=== PATIENT | female | born 1950 | race Caucasian/White ===

== ENCOUNTER 2016-05-03 01:10 | Inpatient (IN) | payer MEDICARE ==
[~2016-05-03] VITALS: Ht 165.1 cm; Wt 101.9 kg
[2016-05-03] VITALS (21 sets, daily range): BP systolic 142–300; BP diastolic 52–190; PULSE 97–114; RESP 14–28; TEMP 95.8–99.7; O2SAT 98–100
[~2016-05-03 01:10] MED LIST: ALBI1INJ SQ; ALLBC PO; B-12500T3 PO; CELE20TA PO; CHOL4 PO; CLON.1 PO; DUONI INH; FENO50TA PO; FURO1TAB93 PO; GABA400 PO; HEMOTAB PO; LANO0.2510 PO; LISI-363 PO; LORTA5 PO; METO100T PO; METO50TA PO; MIRTA15 PO; NOVONP2 SQ; OMEG100037 PO; ONETAB13 PO; PANT20 PO; POTA595T5 PO; SIMV20 PO; SLOWTAB PO; SPIRCAP INH; SYMB160A INH; TYLE500T PO; VITA100017 PO; VITA400C70 PO; VITATAB25 PO; WARF5TAB PO
[2016-05-03] MEDS ORDERED: SODIUM CHLOR 0.9% 1000 ML INJ 1,000 ML IV ONE (01:15)
[2016-05-03 01:26] LABS: I-STAT POTASSIUM 3.7 MMOL/L (3.5-4.9); I-STAT SODIUM 137 MMOL/L (138-146)
[2016-05-03] MEDS ORDERED: ETOMIDATE 20 MG/10 ML VIAL ONE (01:28)
[2016-05-03 01:29] LABS: AUTOMATED NEUTROPHIL # 10.7 TH/MM3 (1.8-7.7); BASOPHIL # 0.1 TH/MM3 (0-0.2); BASOPHIL % 0.6 % (0.0-2.0); EOSINOPHIL # 0.3 TH/MM3 (0-0.4); EOSINOPHIL % 1.7 % (0.0-4.0); HEMATOCRIT 44.4 % (35.0-46.0); LYMPH % 35.1 % (9.0-44.0); LYMPHOCYTE # 6.7 TH/MM3 (1.0-4.8); MEAN CORPUSCULAR HEMOGLOBIN 28.8 PG (27.0-34.0); MEAN CORPUSCULAR HGB CONC 33.9 % (32.0-36.0); MONO % 6.3 % (0.0-8.0); NEUT % 56.3 % (16.0-70.0); PLATELET COUNT 252 TH/MM3 (150-450); RED BLOOD COUNT 5.22 MIL/MM3 (4.00-5.30); RED CELL DISTRIBUTION WIDTH 14.1 % (11.6-17.2)
[2016-05-03 01:30] LABS: HEMO FLAGS AUTO DIFF
[2016-05-03] MEDS ORDERED: PROTHROMBIN COMPLEX CONC INJ 1,500 UNITS in SYRINGE/BAG 1 EA IV ONE (01:30)
[2016-05-03] MEDS ORDERED: ROCURONIUM INJ 50 MG/5 ML VIAL ONE (01:30)
--- NOTE | 2016-05-03 01:31 | PD ---
HPI Chief Complaint: Stroke Alert Time Seen by Provider: 01:12 Travel History International Travel<30 days: No Contact w/Intl Traveler<30days: No Traveled to known affect area: No History of Present Illness HPI 65 years old female was brought in by EMS for stroke alert. Patient has history of multiple strokes in the past. Patient has residual left-sided weakness from the strokes. Patient is on Coumadin. Patient was sitting down watching TV with her then patient started became more unresponsive, having aphasia, nausea vomiting, dizziness, increasing left-sided weakness. EMS was called. Patient was brought to ED stroke alert. Patient's states the patient is a full code. Patient also has history of rapid heart rate and on digoxin, anemia, depression and anxiety, diabetes type 2, emphysema , hypertension, rheumatoid arthritis. Patient's states that patient fell about 3 days ago and complaining of left-sided facial pain. Patient however did not have any change in mental status for the past few days. PFSH Past Medical History Arthritis: Yes Asthma: No Blood Disorders: Yes (clotting disorder) Anxiety: No Depression: No Heart Rhythm Problems: No Cancer: Yes (SKIN CA) Cardiovascular Problems: Yes High Cholesterol: Yes Chemotherapy: No Chest Pain: Yes (COPD) Congestive Heart Failure: No COPD: Yes Cerebrovascular Accident: Yes (2002 ) Diabetes: Yes Diminished Hearing: No Endocrine: Yes GERD: Yes Genitourinary: Yes (renal stent) Hiatal Hernia: Yes Hypertension: Yes Immune Disorder: Yes (lupus) Kidney Stones: Yes Musculoskeletal: Yes Neurologic: No (2002) Psychiatric: No Reproductive: No Respiratory: Yes Migraines: Yes (OCCASIONALLY) Radiation Therapy: No Renal Failure: No Seizures: No Sleep Apnea: No Thyroid Disease: No Ulcer: No Past Surgical History Abdominal Surgery: Yes (CHOLECYSTECTOMY, APPENDECTOMY) Cardiac Surgery: No Cholecystectomy: Yes Ear Surgery: No Endocrine Surgery: No Eye Surgery: No Genitourinary Surgery: Yes (KIDNEY STONE SX) Gynecologic Surgery: Yes (HYSTERECTOMY) Hysterectomy: Yes (1996) Oral Surgery: Yes ( ) Thoracic Surgery: No Tonsillectomy: Yes Other Surgery: Yes Social History Alcohol Use: No Tobacco Use: Yes (hx ppd) Substance Use: No Allergies-Medications (Allergen,Severity, Reaction): Coded Allergies: Rocephin (Verified Allergy, Severe, HIVES, 05/03/16) Latex (Verified Allergy, Intermediate, Rash, 05/03/16) Reported Meds & Prescriptions Reported Meds & Active Scripts Active Reported Clonidine (Clonidine HCl) 0.1 Mg Tab 0.1 Mg PO TID PRN Pantoprazole (Pantoprazole Sodium) 20 Mg Tab 20 Mg PO BID Albuterol Neb (Albuterol Sulfate) 2.5 Mg/3 Ml Neb 2.5 Mg NEB Q4HR NEB PRN Symbicort Inh (Budesonide/Formoterol Fumarate) 160-4.5 Mcg/Act Aero 2 Puff INH Q12HR Spiriva Handihaler (Tiotropium Inh) 18 Mcg Cap 18 Mcg INH DAILY 1 capsule = 18 mcg Novolin N U-100 Inj (Insulin NPH (Human) (Isophane) Inj) 100 Unit/Ml Inj 70 Units SQ HS Novolin N U-100 Inj (Insulin NPH (Human) (Isophane) Inj) 100 Unit/Ml Inj 60 Units SQ AC BREAKFAST Warfarin 5 Mg Tab 5 Mg PO DAILY E400 (Vitamin E) 400 Unit Cap Cap PO DAILY Vitamin C (Ascorbic Acid) 1,000 Mg Tab 1,000 Mg PO DAILY Tylenol Extra Strength (Acetaminophen) 500 Mg Tab 500 Mg PO Q4-6H PRN Magnesium Oxide 400 Mg Cap Cap PO Mirtazapine 15 Mg Tab 15 Mg PO HS Citalopram (Citalopram Hydrobromide) 20 Mg Tab 20 Mg PO DAILY Vitamin B-12 (Cyanocobalamin) 1,000 Mcg Tab 1,000 Mcg PO DAILY Tanzeum 4-Pack Inj (Albiglutide) 50 Mg Pfpen 50 Mg SQ Q7D Digoxin 0.25 Mg Tab 0.25 Mg PO DAILY Hydrocodone-Acetaminophen 5-325 mg Tab 1 Tab PO BID PRN Gabapentin 400 Mg Cap 400 Cap PO TID Simvastatin 20 Mg Tab 20 Mg PO DAILY Fenofibrate 145 Mg Tab 145 Mg PO DAILY Furosemide 40 Mg Tab 40 Mg PO DAILY Potassium Gluconate 595 Mg Tab PO Q4HR PRN Metoprolol Tartrate 100 Mg Tab 100 Mg PO BID Lisinopril 40 Mg Tab 40 Mg PO DAILY Review of Systems ROS Limitations: Altered Mental Status, Unresponsive Physical Exam Narrative GENERAL: Well-nourished, well-developed patient. SKIN: Warm and dry. HEAD: Normocephalic. EYES: No scleral icterus. No injection or drainage. Pupils 2 mm equal reactive. NECK: Supple, trachea midline. No JVD or lymphadenopathy. CARDIOVASCULAR: Regular rate and rhythm without murmurs, gallops, or rubs. RESPIRATORY: Breath sounds equal bilaterally. No accessory muscle use. GASTROINTESTINAL: Abdomen soft, non-tender, nondistended. MUSCULOSKELETAL: No cyanosis, or edema. BACK: Nontender without obvious deformity. No CVA tenderness. Neurologic exam: Patient's lethargic however open eyes on command, moves right extremity minimally on command. Patient is not moving left extremity at all. Patient is aphasic. Deep tendon reflexes 2+ and equal. Negative Babinski. Patient came back from CT and completely unresponsive. Data Data Last Documented VS Vital Signs Date Time Temp Pulse Resp B/P Pulse Ox O2 Delivery O2 Flow Rate FiO2 05/03/16 01:57 105 14 248/98 100 50 05/03/16 01:10 95.8 Orders Diet Npo (05/03/16 Breakfast) Activity Bed Rest (05/03/16 ) Electrocardiogram (05/03/16 ) I-Stat Creatinine (05/03/16 01:15) I-Stat Profile (05/03/16 01:15) Prothrombin Time / Inr (Pt) (05/03/16 01:15) Act Partial Throm Time (Ptt) (05/03/16 01:15) Complete Blood Count With Diff (05/03/16 01:15) Fibrinogen (05/03/16 01:15) Creatine Kinase (Cpk) (05/03/16 01:15) Troponin I (05/03/16 01:15) Ua Includes Microscopic (05/03/16 01:15) Drug Screen, Random Urine (05/03/16 01:15) Type And Screen (05/03/16 01:15) Ct Brain W/O Iv Contrast(Rout) (05/03/16 ) Chest, Single Ap (05/03/16 ) Consult Neurology (05/03/16 ) Blood Glucose (05/03/16 01:15) Ecg Monitoring (05/03/16 01:15) Neuro Checks Q2HX12,Q4H (05/03/16 01:15) Nursing Bedside Swallow Assess .ONCE (05/03/16 01:15) Iv Access Insert/Monitor (05/03/16 01:15) NPO (05/03/16 01:15) Oximetry (05/03/16 01:15) Oxygen Administration (05/03/16 01:15) Sodium Chlor 0.9% 1000 Ml Inj (Ns 1000 M (05/03/16 01:15) Resp Oxygen Ahmet C Titrat 1-4 L (05/03/16 01:15) Cath For Specimen (05/03/16 01:15) Etomidate Inj (Amidate Inj) (05/03/16 01:28) Nicardipine Inj (Cardene Inj) (05/03/16 01:30) Nicardipine Inj (Cardene Inj) (05/03/16 01:29) Prothrombin Complex Conc Inj (Kcentra In (05/03/16 01:30) Rocuronium Inj (Zemuron Inj) (05/03/16 01:30) Etomidate Inj (Amidate Inj) (05/03/16 01:45) Rocuronium Inj (Zemuron Inj) (05/03/16 01:45) Propofol 1000 Mg/100 Ml Inj (Diprivan 10 (05/03/16 01:45) Propofol 1000 Mg/100 Ml Inj (Diprivan 10 (05/03/16 01:45) ^ Infusion (05/03/16 01:31) RASS (05/03/16 01:31) Neurological Rass Scale DWIGHT.Q2H (05/03/16 01:31) Mannitol Inj (Osmitrol Inj) (05/03/16 01:45) Mannitol Inj (Mannitol Inj) (05/03/16 01:45) Mannitol Inj (Mannitol Inj) (05/03/16 01:44) Comprehensive Metabolic Panel (05/03/16 01:44) Arterial Blood Gas (Abg) (05/03/16 01:44) Urinary Catheter Insert/Apply (05/03/16 01:44) Aixa-Gastric Tube Insert/Mon (05/03/16 01:44) Restraints Non-Violent DWIGHT.Q3H (05/03/16 01:44) Admit Order (Ed Use Only) (05/03/16 02:04) Labs Laboratory Tests Test 05/03/16 01:11 White Blood Count 19.0 TH/MM3 Red Blood Count 5.22 MIL/MM3 Hemoglobin 15.0 GM/DL Bedside Hemoglobin 16.0 G/DL Hematocrit 44.4 % Bedside Hematocrit 47.0 % Mean Corpuscular Volume 85.0 FL Mean Corpuscular Hemoglobin 28.8 PG Mean Corpuscular Hemoglobin 33.9 % Concent Red Cell Distribution Width 14.1 % Platelet Count 252 TH/MM3 Mean Platelet Volume 9.9 FL Neutrophils (%) (Auto) 56.3 % Lymphocytes (%) (Auto) 35.1 % Monocytes (%) (Auto) 6.3 % Eosinophils (%) (Auto) 1.7 % Basophils (%) (Auto) 0.6 % Neutrophils # (Auto) 10.7 TH/MM3 Lymphocytes # (Auto) 6.7 TH/MM3 Monocytes # (Auto) 1.2 TH/MM3 Eosinophils # (Auto) 0.3 TH/MM3 Basophils # (Auto) 0.1 TH/MM3 CBC Comment AUTO DIFF Differential Total Cells 100 Counted Neutrophils % (Manual) 58 % Band Neutrophils % 3 % Lymphocytes % 31 % Monocytes % 6 % Eosinophils % 1 % Neutrophils # (Manual) 11.8 TH/MM3 Metamyelocytes 1 % Differential Comment FINAL DIFF MANUAL Platelet Estimate NORMAL Platelet Morphology Comment NORMAL Red Cell Morphology Comment NORMAL Prothrombin Time 32.7 SEC Prothromb Time International 2.8 RATIO Ratio Activated Partial 34.6 SEC Thromboplast Time Fibrinogen 296 mg/dL Bedside Sodium 137 MMOL/L Sodium Level 135 MEQ/L Bedside Potassium 3.7 MMOL/L Potassium Level 3.7 MEQ/L Bedside Chloride 99 MMOL/L Chloride Level 100 MEQ/L Carbon Dioxide Level 25.6 MEQ/L Anion Gap 9 MEQ/L Bedside Blood Urea Nitrogen 17 MG/DL Blood Urea Nitrogen 14 MG/DL Creatinine 0.90 MG/DL Bedside Creatinine 0.7 MG/DL Estimat Glomerular Filtration 63 ML/MIN Rate Bedside Glucose 325 MG/DL Random Glucose 324 MG/DL Calcium Level 9.2 MG/DL Total Bilirubin 0.3 MG/DL Aspartate Amino Transf 23 U/L (AST/SGOT) Alanine Aminotransferase 28 U/L (ALT/SGPT) Alkaline Phosphatase 93 U/L Total Creatine Kinase 63 U/L Troponin I LESS THAN 0.02 NG/ML Total Protein 7.6 GM/DL Albumin 4.1 GM/DL Blood Type O NEGATIVE Antibody Screen NEGATIVE MDM Medical Decision Making Medical Screen Exam Complete: Yes Emergency Medical Condition: Yes Medical Record Reviewed: Yes Interpretation(s) Last Impressions Head CT 05/03/16 0000 Signed Impressions: Service Date/Time: Tuesday, May 03, 2016 01:18 - CONCLUSION: Large acute posterior fossa hemorrhage. There is also blood in the fourth and third ventricles. Report was called to Dr. Rodrigues at 1:30 AM. Haim Anaya MD Differential Diagnosis Differential diagnosis including TIA, CVA. Narrative Course 65 years old female with sudden onset of altered mental status, unresponsive, vomiting, hypertensive, increasing weakness in the left side. History of multiple strokes in the past and on Coumadin. Patient was intubated. K Centra IV order immediately. Cardizem drip started to have systolic blood pressure less than 160. Mannitol 50 g IV given. Mannitol 25 g IV every 6 hour. I spoke with Dr[address] Chavez, neurosurgeon mill tender second operator. Agreed with the plan. 3:15 AM. I was informed by pharmacy that K Centra was not given to the patient as ordered at 1:30 AM. 3:[address] Silvestre, manager enrollment inform me that K Centra was not given to the patient at 1:30 AM. I spoke with Dr. Chavez about the situation also. Procedures Procedure Narrative After the risks and benefits were discussed the following procedure was performed: INTUBATION: The patient was put in optimal position for the procedure. Rapid sequence intubation was initiated by me using 20 milligrams of etomidate IV and 50 milligrams of rocuronium IV. The patient was intubated with a 8 cuffed endotracheal tube. Tube placement was confirmed by visualization of the tube and balloon passing through the cords, capnometry and subsequent chest x-ray. Breath sounds were equal and well aerated bilaterally postintubation. No breath sounds over stomach. Patient tolerated procedure well. Diagnosis Primary Impression: Intracranial hemorrhage Additional Impressions: Coagulopathy Respiratory failure with hypoxia Qualified Code: J96.01 - Acute respiratory failure with hypoxia David Rodrigues MD May 03, 2016 01:31
--- NOTE | 2016-05-03 01:34 | RADRPT ---
EXAM DATE/TIME: 05/03/2016 01:18 [facility] COMPARISON: No previous studies available for comparison. INDICATIONS : Stroke alert; nonverbal. RADIATION DOSE: 48.74 CTDIvol (mGy) This report was called by Dr. Anaya to Dr Rodrigues at 1: 30 AM MEDICAL HISTORY : Hypertension. Chronic obstructive pulmonary disease. Cardiovascular diseaseCVA SURGICAL HISTORY : Cholecystectomy. Appendectomy. Hysterectomy. ENCOUNTER: Initial ACUITY: 1 day PAIN SCALE: Non-responsive LOCATION: cranial TECHNIQUE: Multiple contiguous axial images were obtained of the head. Using automated exposure control and adj ustment of the mA and/or kV according to patient size, radiation dose was kept as low as reasonably a chievable to obtain optimal diagnostic quality images. FINDINGS: Acute cerebellar infarct left more so than right noted, measures about 4.5 x 6.3 cm in size. There is hemorrhage in the fourth ventricle and extending supratentorial into the third ventricle. No cerebral hemorrhage. No cerebral midline shift. There is an old white matter infarct of the r ight frontal and parietal lobes. No evidence of an acute ischemic event. No mass lesion demonstrated. CONCLUSION: Large acute posterior fossa hemorrhage. There is also blood in the fourth and third ventricles. Report was called to Dr. Rodrigues at 1:30 AM. Haim Anaya MD on May 03, 2016 at 1:30 Board Certified Radiologist. This report was verified electronically.
[2016-05-03 01:38] LABS: APTT (PATIENT) 34.6 SEC (24.3-30.1); INTERNATIONAL NORMALIZED RATIO 2.8 RATIO; PROTHROMBIN TIME - PATIENT 32.7 SEC (9.8-11.6)
[2016-05-03 01:44] LABS: CREATINE KINASE 63 U/L (26-192)
[2016-05-03] MEDS ORDERED: MANNITOL INJ 50 ML ONE ×2 (01:44→04:51)
[2016-05-03] MEDS: MANNITOL 12.5 GM/50 ML VIAL IV SCH ×4 (01:45→20:06)
[2016-05-03] MEDS ORDERED: PROPOFOL 1000 MG/100 ML INJ 100 ML IV SCH (01:45)
[2016-05-03] MEDS ORDERED: ETOMIDATE 20 MG/10 ML VIAL IV PUSH ONE (01:45)
[2016-05-03] MEDS ORDERED: MANNITOL INJ 250 ML IV ONE (01:45)
[2016-05-03] MEDS ORDERED: ROCURONIUM INJ 50 MG/5 ML VIAL IV ONE (01:45)
[2016-05-03 02:10] LABS: BANDS 3 % (0-6); EOSINOPHILS 1 % (0-4); METAMYELOCYTES 1 % (0-1); NEUTROPHIL # MANUAL DIFF 11.8 TH/MM3 (1.8-7.7); POLYS (SEG NEUTROPHILS) 58 % (16-70); WBC DIFF SAMPLE 100
[2016-05-03 02:11] LABS: PLATELET ESTIMATE SMEAR NORMAL (NORMAL); PLATELET MORPHOLOGY NORMAL (NORMAL); SCAN/DIFF FINAL DIFF MANUAL
--- NOTE | 2016-05-03 02:11 | RADRPT ---
EXAM DATE/TIME: 05/03/2016 01:53 [facility] COMPARISON: CHEST PA & LAT, December 03, 2014, 22:46. INDICATIONS : E-T tube placement, Stroke Alert. MEDICAL HISTORY : Hypertension. Chronic obstructive pulmonary disease. Stroke. SURGICAL HISTORY : Cholecystectomy. Appendectomy. Hysterectomy. ENCOUNTER: Initial ACUITY: 1 day PAIN SCORE: Non-responsive. LOCATION: Bilateral chest FINDINGS: No infiltrate, effusion or pneumothorax demonstrated. Heart size stable, upper limits of normal. Endotracheal tube tip is about 15 mm above the luis antonio. There is a nasogastric tube coiled in the stom ach. CONCLUSION: 1. Endotracheal tube tip is about 1.5 cm above the luis antonio. 2. Nasogastric tube courses into the stomach. 3. Lungs reasonably clear. Haim Anaya MD on May 03, 2016 at 2:09 Board Certified Radiologist. This report was verified electronically.
[2016-05-03] MEDS: niCARdipine INJ 25 MG in SODIUM CHLOR 0.9% 250 ML INJ 250 ML IV SCH ×4 (02:48→10:10)
[2016-05-03] MEDS ORDERED: MANNITOL 12.5 GM/50 ML VIAL IV ONE ×4 (03:00→11:15)
[2016-05-03] MEDS ORDERED: PHYTONADIONE 10 MG/D5W 50 ML IV ONE ×2 (03:30)
[2016-05-03] MEDS ORDERED: 3% SALINE INJ 500 ML IV SCH (03:30)
--- NOTE | 2016-05-03 03:48 | PD.OP ---
Operative Report Date of Surgery: May 03, 2016 Preoperative Diagnosis: Posterior fossa hemorrhage Postoperative Diagnosis: Posterior fossa hemorrhage Procedure: Right frontal [place] hole with placement of a ventriculostomy catheter Anesthesia: general Surgeon: Oumar Chavez Financial Sales Manager(s): SUREKHA Operation and Findings: INDICATIONS FOR THE PROCEDURE The patient is a 65 YEAR OLD FEmale who was brought to [facility] as we dissected a regular hemorrhage/ SHe was anticoagulated with warf. CT of the brain showed a occlusion of the third and fourth ventricle with blood. Placement of ventriculostomy was indicated as recommended by the Tra[employer] of [place] [employer] DETAILS OF THE SURGICAL PROCEDURE The right frontal area was shaved, prepped and draped in the usual sterile fashion. An entry point was selected 90 millimeters posterior to the supraorbital rim and 25 millimeters from the midline. The area was infiltrated with 1% lidocaine with epinephrine. A skin incision was made with a #15 blade down to the level of the periosteum. Using a twist drill, a arash hole was made. The dura was carefully opened with a brain needle and a ventriculostomy catheter was advanced into the ventricular system. At a depth of 60 millimeters, cerebrospinal fluid was obtained. Opening pressure was 15 centimeters of water. A specimen of cerebrospinal fluid was collected and sent to the lab for analysis of the glucose, protein, cell count and cultures. The catheter was then tunneled under the galea and externalized through a separate stab incision. The incision was closed with 3-0 nylon in a single plane. The patient tolerated the procedure well. COMPLICATIONS There were no intraoperative complications. BLOOD LOSS Blood loss was minimal. Oumar Chavez MD May 03, 2016 03:48
--- NOTE | 2016-05-03 03:48 | PD.CONS ---
HPI Service Neurosurgery Consult Requested By Dr Rodrigues Reason for Consult Cerebellar hemorrhage Primary Care Physician Fanny Leggett MD History of Present Illness This is a 65 year old female brought in by EMS as a stroke alert. She has history of multiple ischemic strokes in the past with residual left-sided weakness from the strokes. Patient has a history of Antiphospholipid syndrome and is on anticoagulated Coumadin. Apparently she was sitting down watching TV with her when she became unresponsive, with aphasia, nausea vomiting, dizziness, and increasing left-sided weakness. She is a known tyoe II diabetic and appears to be uncontrolled in ketoacidosis. EMS was called. She was brought to ED stroke alert. CT head revealed a posterior fossa ICH. Neurosurgical consultation was requested Physical Exam Vital Signs Vital Signs Date Time Temp Pulse Resp B/P Pulse Ox O2 Delivery O2 Flow Rate FiO2 05/03/16 04:11 100 70 05/03/16 03:00 Mechanical Ventilator 50 05/03/16 02:42 50 05/03/16 02:34 102 14 192/62 96 Ventilator 50 05/03/16 01:40 100 50 05/03/16 01:35 14 286/112 05/03/16 01:10 95.8 102 300/190 Physical Exam GENERAL: OBESE, well-developed patient. SKIN: Warm and dry. HEAD: Normocephalic. EYES: No scleral icterus. No injection or drainage. NECK: Supple, trachea midline. No JVD or lymphadenopathy. CARDIOVASCULAR: Regular rate and rhythm without murmurs, gallops, or rubs. RESPIRATORY: Breath sounds equal bilaterally. No accessory muscle use. GASTROINTESTINAL: Abdomen soft, non-tender, nondistended. MUSCULOSKELETAL: No cyanosis, or edema. BACK: Nontender without obvious deformity. No CVA tenderness. EXTREMITIES: Left weakness Laboratory Laboratory Tests Test 05/03/16 05/03/16 05/03/16 01:11 03:10 03:51 White Blood Count 19.0 Red Blood Count 5.22 Hemoglobin 15.0 Bedside Hemoglobin 16.0 Hematocrit 44.4 Bedside Hematocrit 47.0 Mean Corpuscular Volume 85.0 Mean Corpuscular Hemoglobin 28.8 Mean Corpuscular Hemoglobin 33.9 Concent Red Cell Distribution Width 14.1 Platelet Count 252 Mean Platelet Volume 9.9 Neutrophils (%) (Auto) 56.3 Lymphocytes (%) (Auto) 35.1 Monocytes (%) (Auto) 6.3 Eosinophils (%) (Auto) 1.7 Basophils (%) (Auto) 0.6 Neutrophils # (Auto) 10.7 Lymphocytes # (Auto) 6.7 Monocytes # (Auto) 1.2 Eosinophils # (Auto) 0.3 Basophils # (Auto) 0.1 CBC Comment AUTO DIFF Differential Total Cells 100 Counted Neutrophils % (Manual) 58 Band Neutrophils % 3 Lymphocytes % 31 Monocytes % 6 Eosinophils % 1 Neutrophils # (Manual) 11.8 Metamyelocytes 1 Differential Comment FINAL DIFF MANUAL Platelet Estimate NORMAL Platelet Morphology Comment NORMAL Red Cell Morphology Comment NORMAL Prothrombin Time 32.7 Prothromb Time International 2.8 Ratio Activated Partial 34.6 Thromboplast Time Fibrinogen 296 Bedside Sodium 137 Sodium Level 135 Bedside Potassium 3.7 Potassium Level 3.7 Bedside Chloride 99 Chloride Level 100 Carbon Dioxide Level 25.6 Anion Gap 9 Bedside Blood Urea Nitrogen 17 Blood Urea Nitrogen 14 Creatinine 0.90 Bedside Creatinine 0.7 Estimat Glomerular Filtration 63 Rate Bedside Glucose 325 Random Glucose 324 Calcium Level 9.2 Total Bilirubin 0.3 Aspartate Amino Transf 23 (AST/SGOT) Alanine Aminotransferase 28 (ALT/SGPT) Alkaline Phosphatase 93 Total Creatine Kinase 63 Troponin I LESS THAN 0.02 Total Protein 7.6 Albumin 4.1 Blood Type O NEGATIVE Antibody Screen NEGATIVE Blood Bank Comment CSF Glucose 153 CSF Total Protein 242.4 Date/Time Procedure Status Source Growth 05/03/16 03:51 Gram Stain Received Cerebral Spinal Fluid Shunt Fluid Pending 05/03/16 03:51 CSF Culture Received Cerebral Spinal Fluid Shunt Fluid Pending Result Diagram: 05/03/16 0111 05/03/16 0111 Imaging Last [address] 05/03/16 0000 Signed Impressions: Service Date/Time: Tuesday, May 03, 2016 01:18 - CONCLUSION: Large acute posterior fossa hemorrhage. There is also blood in the fourth and third ventricles. Report was called to Dr. Rodrigues at 1:30 AM. Haim Anaya MD Chest X-Ray 05/03/16 0000 Signed Impressions: Service Date/Time: Tuesday, May 03, 2016 01:53 - CONCLUSION: 1. Endotracheal tube tip is about 1.5 cm above the luis antonio. 2. Nasogastric tube courses into the stomach. 3. Lungs reasonably clear. Haim Anaya MD Review of Systems Unable to obtain Past Family Social History Allergies: Coded Allergies: Rocephin (Verified Allergy, Severe, HIVES, 05/03/16) Latex (Verified Allergy, Intermediate, Rash, 05/03/16) Past Medical History - Afibrillation - HTN - DM - Antiphospholipid syndrome. Past Surgical History - Cholecystectomy - Total hysterectomy - Kidney stone removal Reported Medications Clonidine (Clonidine HCl) 0.1 Mg Tab 0.1 Mg PO TID PRN Pantoprazole (Pantoprazole Sodium) 20 Mg Tab 20 Mg PO BID Albuterol Neb (Albuterol Sulfate) 2.5 Mg/3 Ml Neb 2.5 Mg NEB Q4HR NEB PRN Symbicort Inh (Budesonide/Formoterol Fumarate) 160-4.5 Mcg/Act Aero 2 Puff INH Q12HR Spiriva Handihaler (Tiotropium Inh) 18 Mcg Cap 18 Mcg INH DAILY 1 capsule = 18 mcg Novolin N U-100 Inj (Insulin NPH (Human) (Isophane) Inj) 100 Unit/Ml Inj 70 Units SQ HS Novolin N U-100 Inj (Insulin NPH (Human) (Isophane) Inj) 100 Unit/Ml Inj 60 Units SQ AC BREAKFAST Warfarin 5 Mg Tab 5 Mg PO DAILY E400 (Vitamin E) 400 Unit Cap Cap PO DAILY Vitamin C (Ascorbic Acid) 1,000 Mg Tab 1,000 Mg PO DAILY Tylenol Extra Strength (Acetaminophen) 500 Mg Tab 500 Mg PO Q4-6H PRN Magnesium Oxide 400 Mg Cap Cap PO Mirtazapine 15 Mg Tab 15 Mg PO HS Citalopram (Citalopram Hydrobromide) 20 Mg Tab 20 Mg PO DAILY Vitamin B-12 (Cyanocobalamin) 1,000 Mcg Tab 1,000 Mcg PO DAILY Tanzeum 4-Pack Inj (Albiglutide) 50 Mg Pfpen 50 Mg SQ Q7D Digoxin 0.25 Mg Tab 0.25 Mg PO DAILY Hydrocodone-Acetaminophen 5-325 mg Tab 1 Tab PO BID PRN Gabapentin 400 Mg Cap 400 Cap PO TID Simvastatin 20 Mg Tab 20 Mg PO DAILY Fenofibrate 145 Mg Tab 145 Mg PO DAILY Furosemide 40 Mg Tab 40 Mg PO DAILY Potassium Gluconate 595 Mg Tab PO Q4HR PRN Metoprolol Tartrate 100 Mg Tab 100 Mg PO BID Lisinopril 40 Mg Tab 40 Mg PO DAILY Active Ordered Medications Current Medications Sodium Chloride (NS 1000 ml Inj) 1,000 ml @ 70 mls/hr [id number] ONCE IV Last administered on 05/03/16 01:15; Start 05/03/16 at 01:15; Stop 05/03/16 at 04:38 ; Status DC Etomidate 20 mg 20 mg STK-MED ONCE .ROUTE Last administered on 05/03/16 01:37 ; Start 05/03/16 at 01:28; Stop 05/03/16 at 01:29; Status DC Nicardipine HCl/ Sodium Chloride (Cardene Inj/NS 250 ml Inj) 260 ml @ 0 mls/hr TITRATE IV Last administered on 05/03/16 10:10; Start 05/03/16 at 01:30 Nicardipine HCl 25 mg 25 mg STK-MED ONCE .ROUTE ; Start 05/03/16 at 01:29; Stop 05/03/16 at 01:30; Status DC Prothrombin Complex Concent (Human)/Syringe / Bag (Kcentra Inj/ Syringe/Bag) 0 ml @ 8 mls/min ONCE ONCE IV Last administered on 05/03/16 03:27; Start at 01:30; Stop 05/03/16 at 01:31; Status DC Rocuronium [place] (Zemuron Inj) 50 mg STK-MED ONCE .ROUTE ; Start 05/03/16 at 01:30; Stop 05/03/16 at 01:31; Status DC Etomidate (Amidate Inj) 20 mg ONCE ONCE IV PUSH Last administered on 01:37; Start 05/03/16 at 01:45; Stop 05/03/16 at 01:46; Status DC Rocuronium [place] 50 mg 50 mg BOLUS ONCE IV Last administered on 05/03/16 01 :37; Start 05/03/16 at 01:45; Stop 05/03/16 at 01:46; Status DC Propofol 100 ml @ 0 mls/hr TITRATE IV Last administered on 05/03/16 02:49; Start 05/03/16 at 01:45; Stop 05/03/16 at 04:36; Status DC Propofol 100 ml @ 0 mls/hr TITRATE IV Last administered on 05/03/16 09:29; Start 05/03/16 at 01:45 Mannitol (Osmitrol Inj) 250 ml @ 250 mls/hr ONCE ONCE IV ; Start 05/03/16 at 01:45; Stop 05/03/16 at 02:44; Status DC Mannitol 25 gm 25 gm Q6H IV Last administered on 05/03/16 06:53; Start at 01:45 Mannitol (Mannitol Inj) 50 ml @ As Directed STK-MED ONCE .ROUTE ; Start at 01:44; Stop 05/03/16 at 01:45; Status DC Mannitol 50 gm 50 gm ONCE ONCE IV Last administered on 05/03/16 01:50; Start 05/03/16 at 03:00; Stop 05/03/16 at 03:01; Status DC Phytonadione 10 mg/Dextrose 51 ml @ 102 mls/hr ONCE ONCE IV Last administered on 05/03/16 03:27; Start 05/03/16 at 03:30; Stop 05/03/16 at 03:59 ; Status DC Sodium Chloride (Sodium Chloride 3% Inj) 500 ml @ 10 mls/hr NOW IV Last administered on 05/03/16 03:26; Start 05/03/16 at 03:30; Stop 05/04/16 at 03:29 Mannitol 50 gm 50 gm ONCE ONCE IV Last administered on 05/03/16 04:48; Start 05/03/16 at 04:15; Stop 05/03/16 at 04:16; Status DC Sodium Chloride (NS 1000 ml Inj) 1,000 ml @ 84 mls/hr [id number] IV Last administered on 05/03/16 04:40; Start 05/03/16 at 04:22 IV Flush (NS Flush) 2 ml UNSCH PRN IV FLUSH FLUSH AFTER USING IV ACCESS; Start 05/03/16 at 04:30 IV Flush (NS Flush) 2 ml BID IV FLUSH Last administered on 05/03/16 09:01; Start 05/03/16 at 09:00 Acetaminophen (Tylenol) 650 mg Q6H PRN PO PAIN 1-5 AND/OR FEVER >101F; Start at 04:30 Morphine Sulfate (Morphine Inj) 2 mg Q2H PRN IV PAIN SCALE 6 TO 10; Start 05/03 at 04:30 Famotidine (Pepcid Inj) 20 mg Q12HR IV PUSH Last administered on 05/03/16 09: 01; Start 05/03/16 at 09:00 Midazolam HCl (Versed Inj) 2 mg Q1H PRN IV SEDATION; Start 05/03/16 at 04:30 Artificial Tears (Tears Naturale Opth Soln) 1 drop TID EACH EYE ; Start at 09:00 Ondansetron HCl (Zofran Inj) 4 mg Q6H PRN IV NAUSEA OR VOMITING; Start at 04:30 Metoclopramide HCl (Reglan Inj) 10 mg Q6H PRN IV NAUSEA OR VOMITING; Start at 04:30 Docusate Sodium (Colace Liq) 100 mg Q12H G-TUBE ; Start 05/03/16 at 09:00 Albuterol/ Ipratropium (Duoneb Neb) 1 ampule Q2HR NEB PRN INH WHEEZING; Start 05/03/16 at 04:30 Miscellaneous Information 1 [id number] Last administered on 05/03/16 04:30; Start 05/03/16 at 04:30 Chlorhexidine Gluconate (Chlorhexidine 2% Cloth) 3 pack Taper DAILY@04 TOP ; Start 05/04/16 at 04:00; Stop 04/30/17 at 03:59 Chlorhexidine Gluconate 3 pack 3 pack UNSCH PRN TOP HYGIENIC CARE; Start at 04:30 Propofol (Diprivan 1000 Mg/100ml Inj) 100 ml @ 0 mls/hr TITRATE IV Last administered on 05/03/16 05:06; Start 05/03/16 at 04:30 Dextrose (D50w (Vial) Inj) 25 ml UNSCH PRN IV PUSH HYPOGLYCEMIA-SEE COMMENTS; Start 05/03/16 at 04:45 Glucagon (Glucagon Inj) 1 mg UNSCH PRN OTHER HYPOGLYCEMIA-SEE COMMENTS; Start 05/03/16 at 04:45 Insulin Aspart (NovoLOG SUPPLEMENTAL SCALE) 1 ACHS SLIDING SCALE SQ Last administered on 05/03/16 06:22; Start 05/03/16 at 07:00; Stop 05/03/16 at 07:00 ; Status DC Metoprolol Tartrate 2.5 mg 2.5 mg Q6H IV PUSH Last administered on 05/03/16 10 :18; Start 05/03/16 at 05:00 Mannitol 50 ml @ As Directed STK-MED ONCE .ROUTE ; Start 05/03/16 at 04:51; Stop 05/03/16 at 04:52; Status DC Insulin Human Regular/Sodium Chloride (NovoLIN R (IV INFUSION)/NS Inj) 100 ml @ 0 mls/hr TITRATE IV Last administered on 05/03/16 07:10; Start 05/03/16 at 06: 45 Dextrose (D50w (Vial) Inj) 25 ml UNSCH PRN IV PUSH SEE LABEL COMMENTS; Start at 06:45 Miscellaneous Information 1 ONCE ONCE XX Last administered on 05/03/16 09:29 ; Start 05/03/16 at 06:45; Stop 05/03/16 at 06:46; Status DC Insulin Detemir (Levemir Inj) 20 units Q12HR SQ Last administered on 05/03/16 07:00; Start 05/03/16 at 07:00 Microfibriller Collagen Hemostat (Avitene Bandage) 1 bandage STK-MED ONCE .ROUTE ; Start 05/03/16 at 09:38; Stop 05/03/16 at 09:39; Status DC Lidocaine/ Epinephrine (Xylocaine-Epi 1%-1:100,000 Inj) 30 ml STK-MED ONCE .ROUTE ; Start 05/03/16 at 09:38; Stop 05/03/16 at 09:39; Status DC Thrombin (Thrombin Top Soln) 5,000 units STK-MED ONCE .ROUTE ; Start 05/03/16 at 09:38; Stop 05/03/16 at 09:39; Status DC Dexamethasone Sodium Phosphate (Decadron Inj) 4 mg STK-MED ONCE .ROUTE ; Start 05/03/16 at 09:38; Stop 05/03/16 at 09:39; Status DC Gelatin (Gelfoam 100 Top) 1 foam STK-MED ONCE .ROUTE ; Start 05/03/16 at 09:38; Stop 05/03/16 at 09:39; Status DC Cefazolin Sodium (Ancef Inj) 2,000 mg STK-MED ONCE .ROUTE ; Start 05/03/16 at 09 :38; Stop 05/03/16 at 09:39; Status DC Gentamicin Sulfate (Gentamicin Inj) 240 mg STK-MED ONCE .ROUTE ; Start 05/03/16 at 09:39; Stop 05/03/16 at 09:40; Status DC Family History Noncontributory Mom - breast cancer Dad - CT Social History Smokes 2 ppd, does not drunk or use any illicit drugs Physical Exam Vital Signs Vital Signs Date Time Temp Pulse Resp B/P Pulse Ox O2 Delivery O2 Flow Rate FiO2 05/03/16 03:00 Mechanical Ventilator 50 05/03/16 02:42 50 05/03/16 02:34 102 14 192/62 96 Ventilator 50 05/03/16 01:40 100 50 Physical Exam The patient is intubated and sedated. Yanni response to pain Cranial Nerves: Pupils 2mm equal, round, reactive to light. Eyes appear conjugated. There was no nystagmus, no papilledema. Face musculature appeared symmetrical at rest. Face sensation, olfaction, visual duran, and hearing cannot be adequately assessed due to his neurological condition. The patient has a corneal reflex. He has a gag reflex. The sternocleidomastoid and trapezius are symmetrical. Cervical Spine: neck is soft, without nuchal rigidity. Motor: No response to pain Reflexes: Deep tendon reflexes are 1+ and symmetrical in the biceps, triceps, and brachioradialis, bilaterally, in the upper extremities. In the lower extremities, the patellar and ankles are 1+, bilaterally. There is a bilateral plantar flexion response. There is no clonus Sensory: On examination there is no response to painful stimulus Cerebellar: Examination cannot be adequately assessed due to the patient's neurological condition. Laboratory Laboratory Tests Test 05/03/16 05/03/16 01:11 03:10 White Blood Count 19.0 Red Blood Count 5.22 Hemoglobin 15.0 Bedside Hemoglobin 16.0 Hematocrit 44.4 Bedside Hematocrit 47.0 Mean Corpuscular Volume 85.0 Mean Corpuscular Hemoglobin 28.8 Mean Corpuscular Hemoglobin 33.9 Concent Red Cell Distribution Width 14.1 Platelet Count 252 Mean Platelet Volume 9.9 Neutrophils (%) (Auto) 56.3 Lymphocytes (%) (Auto) 35.1 Monocytes (%) (Auto) 6.3 Eosinophils (%) (Auto) 1.7 Basophils (%) (Auto) 0.6 Neutrophils # (Auto) 10.7 Lymphocytes # (Auto) 6.7 Monocytes # (Auto) 1.2 Eosinophils # (Auto) 0.3 Basophils # (Auto) 0.1 CBC Comment AUTO DIFF Differential Total Cells 100 Counted Neutrophils % (Manual) 58 Band Neutrophils % 3 Lymphocytes % 31 Monocytes % 6 Eosinophils % 1 Neutrophils # (Manual) 11.8 Metamyelocytes 1 Differential Comment FINAL DIFF MANUAL Platelet Estimate NORMAL Platelet Morphology Comment NORMAL Red Cell Morphology Comment NORMAL Prothrombin Time 32.7 Prothromb Time International 2.8 Ratio Activated Partial 34.6 Thromboplast Time Fibrinogen 296 Bedside Sodium 137 Bedside Potassium 3.7 Bedside Chloride 99 Bedside Blood Urea Nitrogen 17 Bedside Creatinine 0.7 Bedside Glucose 325 Total Creatine Kinase 63 Troponin I LESS THAN 0.02 Blood Type O NEGATIVE Antibody Screen NEGATIVE Blood Bank Comment Result Diagram: 05/03/16 0111 Imaging Last Impressions Head CT 05/03/16 0000 Signed Impressions: Service Date/Time: Tuesday, May 03, 2016 01:18 - CONCLUSION: Large acute posterior fossa hemorrhage. There is also blood in the fourth and third ventricles. Report was called to Dr. Rodrigues at 1:30 AM. Haim Anaya MD Chest X-Ray 05/03/16 0000 Signed Impressions: Service Date/Time: Tuesday, May 03, 2016 03:27 - CONCLUSION: 1. Left IJ central venous catheter has its tip at the atriocaval junction. 2. A new tracheal tube tip is about 4 cm above the luis antonio. 3. Lungs remain reasonably clear. Haim Anaya MD Attending Statement Neuro. I have reviewed her clinical and radiological findings. Start neuro checks in a serial fashion. Ther alternatives of treatment have been discussed with her . Recommend surgical evacuation of the hematoma with posterior fossa craniectomy and duroplasty. I have discussed the details including the [id number] details of the surgical procedure, its indications, alternatives, risks, and potential complications. Risks and potential complications include, but are not limited to, infection, blood loss, CSF leak, partial or complete loss of sight in one or both eyes, paresis, paralysis, permanent pain or difficulty swallowing, loss of bowel or bladder function, complications from anesthesia, blood clot, stroke, myocardial infarction, or even . Unfortunately she is fully anticoagulated with warfarin and needs reversal of the anticoagulation ULISES. Discussed with Dr Rodrigues and with finished hardware erector There is oclussion of the ventricular system and I recommend a ventriculostomy catheter Respiratory. Full mechanical ventilation in a [place] controlled more mechanical ventilation,. pulmonary toilette, nasotracheal suction, and breathing treatments with nebulizers. History of prior CVA, embolic MCA, antiphospholipid syndrome . HOLD ANTICOAGULATION FOR NOW Hypertension As needed Cardene to maintain systolic blood pressure less than 150. Chronic anticoagulation. Reverse ULISES Follow-up coags PT and OT Nutrition. NPO Renal. monitor closely urine output, BUN and creatinine Endocrine. She has uncontrolled diabetes with DKA. Start insulin drip. Monitor serial Acu checks and SSI for tight control ID monitor for signs of infection Protonix for stress ulcer prophylaxis Matt hose and SCD's for DVT prophylaxis Her understands that she is at increased surgical risk. She is at high surgical risk Oumar Chavez MD May 03, 2016 03:48 Endocrine. Monitor serial Acu checks and SSI as needed in detail ID monitor for signs of infection Protonix for stress ulcer prophylaxis Matt hose and SCD's for DVT prophylaxis Her understands that she is at increased surgical risk. Oumar Chavez MD May 03, 2016 03:48
[2016-05-03] MEDS ORDERED: NOVOINJ6 SQ ×2 (03:58)
[2016-05-03] MEDS ORDERED: LISI40TA PO (03:58)
[2016-05-03] MEDS ORDERED: GABA400C5 PO (03:58)
[2016-05-03] MEDS ORDERED: PANT20TA2 PO (03:58)
[2016-05-03] MEDS ORDERED: FENO145T2 PO (03:58)
[2016-05-03] MEDS ORDERED: CLON0.1T PO (03:58)
[2016-05-03] MEDS ORDERED: [UNRECOGNIZED DRUG - CODE] PO (03:58)
[2016-05-03] MEDS ORDERED: VITA10007 PO (03:58)
[2016-05-03] MEDS ORDERED: SYMB160A INH (03:58)
[2016-05-03] MEDS ORDERED: DIGO0.25 PO (03:58)
[2016-05-03] MEDS ORDERED: FURO40TA PO (03:58)
[2016-05-03] MEDS ORDERED: VITA10002 PO (03:58)
[2016-05-03] MEDS ORDERED: SIMV20TA PO (03:58)
[2016-05-03] MEDS ORDERED: METO100T PO (03:58)
[2016-05-03] MEDS ORDERED: MIRTA15 PO (03:58)
[2016-05-03] MEDS ORDERED: HYDR-3516 PO (03:58)
[2016-05-03] MEDS ORDERED: ALBU0.08 NEB (03:58)
[2016-05-03] MEDS ORDERED: ACET-703 PO (03:58)
[2016-05-03] MEDS ORDERED: CITA20TA4 PO (03:58)
[2016-05-03] MEDS ORDERED: MAGN400C2 PO (03:58)
[2016-05-03] MEDS ORDERED: WARF-23 PO (03:58)
[2016-05-03] MEDS ORDERED: POTA595T PO (03:58)
[2016-05-03] MEDS ORDERED: ALBI1INJ2 SQ (03:58)
[2016-05-03] MEDS ORDERED: SPIRCAP INH (03:58)
[2016-05-03 04:17] LABS: ALT (GPT) 28 U/L (10-53); ANION GAP 9 MEQ/L (5-15); AST (GOT) 23 U/L (15-37); BICARBONATE 25.6 MEQ/L (21.0-32.0); BLOOD UREA NITROGEN 14 MG/DL (7-18); CHLORIDE 100 MEQ/L (98-107); GLOMERULAR FILTRATION RATE 63 ML/MIN (>89); POTASSIUM 3.7 MEQ/L (3.5-5.1); SODIUM (NA) 135 MEQ/L (136-145)
[2016-05-03 04:19] LABS: ALKALINE PHOSPHATASE 93 U/L (45-117); TOTAL BILIRUBIN ADULT 0.3 MG/DL (0.2-1.0)
[2016-05-03] MEDS ORDERED: MORPHINE SULFATE 4 MG/ML INJ IV PRN (04:30)
[2016-05-03] MEDS ORDERED: MIDAZOLAM HCL 2 MG/2 ML VIAL IV PRN (04:30)
[2016-05-03] MEDS ORDERED: MISCELLANEOUS NURSING INFORMATION XX SCH (04:30)
[2016-05-03] MEDS ORDERED: ACETAMINOPHEN 325 MG TAB PO PRN (04:30)
[2016-05-03] MEDS ORDERED: SODIUM CHLORIDE 0.9% FLUSH 5 ML FLUSH IV FLUSH PRN (04:30)
[2016-05-03] MEDS ORDERED: CHLORHEXIDINE GLUCONATE 2 % 1 PACK (2 CLOTHS) TOP PRN (04:30)
[2016-05-03] MEDS ORDERED: ONDANSETRON HCL 4 MG/2 ML VIAL IV PRN ×2 (04:30→12:30)
[2016-05-03] MEDS ORDERED: METOCLOPRAMIDE HCL 10 MG/2 ML VIAL IV PRN (04:30)
[2016-05-03 04:32] LABS: GROSS BLOOD TUBE #1 4+ (0); SUPERNATE COLOR TUBE #1 HEMOLYZED (CLEAR); VOLUME TUBE # 1 2.5 ML; WBC TUBE #1 395 /MM3 (0-10)
[2016-05-03] MEDS: SODIUM CHLOR 0.9% 1000 ML INJ 1,000 ML IV SCH ×2 (04:40→16:10)
--- NOTE | 2016-05-03 04:43 | HHI.HP ---
HPI Service Critical Care Medicine Primary Care Physician Fanny Leggett MD Admission Diagnosis intracranial hemorrhage. Coagulopathy. Diagnosis: Travel History International Travel<30 Days: No Contact w/Intl Traveler <30 Da: No Traveled to Known Affected Are: No History of Present Illness 65 years old female was brought in by EMS for stroke alert. Patient has history of multiple strokes in the past. Patient has residual left-sided weakness from the strokes. Patient has an Antiphospholipid syndrome and is on Coumadin. Patient was sitting down watching TV with her then patient started became more unresponsive, having aphasia, nausea vomiting, dizziness, increasing left-sided weakness. EMS was called. Patient was brought to ED stroke alert. CT head revealed large posterior fossa ICH. Review of Systems ROS Unable to obtain, patient is sedated and intubated Past Family Social History Allergies: Coded Allergies: Rocephin (Verified Allergy, Severe, HIVES, 05/03/16) Latex (Verified Allergy, Intermediate, Rash, 05/03/16) Past Medical History - Afib - HTN - DM - Antiphospholipid syndrome. Past Surgical History - Cholecystectomy - Total hysterectomy - Kidney stone removal Reported Medications Clonidine (Clonidine HCl) 0.1 Mg Tab 0.1 Mg PO TID PRN Pantoprazole (Pantoprazole Sodium) 20 Mg Tab 20 Mg PO BID Albuterol Neb (Albuterol Sulfate) 2.5 Mg/3 Ml Neb 2.5 Mg NEB Q4HR NEB PRN Symbicort Inh (Budesonide/Formoterol Fumarate) 160-4.5 Mcg/Act Aero 2 Puff INH Q12HR Spiriva Handihaler (Tiotropium Inh) 18 Mcg Cap 18 Mcg INH DAILY 1 capsule = 18 mcg Novolin N U-100 Inj (Insulin NPH (Human) (Isophane) Inj) 100 Unit/Ml Inj 70 Units SQ HS Novolin N U-100 Inj (Insulin NPH (Human) (Isophane) Inj) 100 Unit/Ml Inj 60 Units SQ AC BREAKFAST Warfarin 5 Mg Tab 5 Mg PO DAILY E400 (Vitamin E) 400 Unit Cap Cap PO DAILY Vitamin C (Ascorbic Acid) 1,000 Mg Tab 1,000 Mg PO DAILY Tylenol Extra Strength (Acetaminophen) 500 Mg Tab 500 Mg PO Q4-6H PRN Magnesium Oxide 400 Mg Cap Cap PO Mirtazapine 15 Mg Tab 15 Mg PO HS Citalopram (Citalopram Hydrobromide) 20 Mg Tab 20 Mg PO DAILY Vitamin B-12 (Cyanocobalamin) 1,000 Mcg Tab 1,000 Mcg PO DAILY Tanzeum 4-Pack Inj (Albiglutide) 50 Mg Pfpen 50 Mg SQ Q7D Digoxin 0.25 Mg Tab 0.25 Mg PO DAILY Hydrocodone-Acetaminophen 5-325 mg Tab 1 Tab PO BID PRN Gabapentin 400 Mg Cap 400 Cap PO TID Simvastatin 20 Mg Tab 20 Mg PO DAILY Fenofibrate 145 Mg Tab 145 Mg PO DAILY Furosemide 40 Mg Tab 40 Mg PO DAILY Potassium Gluconate 595 Mg Tab PO Q4HR PRN Metoprolol Tartrate 100 Mg Tab 100 Mg PO BID Lisinopril 40 Mg Tab 40 Mg PO DAILY Active Ordered Medications Current Medications Medications (Trade) Dose Ordered Sig/Michelle Route PRN Reason Start Time Stop Time Status Last Admin Dose Admin Sodium Chloride 1,000 ml @ 70 mls/hr [id number] ONCE IV 05/03/16 01:15 05/03/16 15:32 05/03/16 01:15 Nicardipine HCl 25 mg/Sodium Chloride 260 ml @ 0 mls/hr TITRATE IV 05/03/16 01:30 05/03/16 02:48 Propofol 100 ml @ 0 mls/hr TITRATE IV 05/03/16 01:45 05/03/16 02:49 Propofol (Diprivan 1000 Mg/100ml Inj) 100 ml @ 0 mls/hr TITRATE IV 05/03/16 01:45 Mannitol 25 gm 25 gm Q6H IV 05/03/16 01:45 Sodium Chloride (Sodium Chloride 3% Inj) 500 ml @ 10 mls/hr NOW IV 05/03/16 03:30 05/04/16 03:29 05/03/16 03:26 IV Flush (NS Flush) 2 ml UNSCH PRN IV FLUSH FLUSH AFTER USING IV ACCESS 05/03/16 04:30 UNV IV Flush (NS Flush) 2 ml BID IV FLUSH 05/03/16 09:00 UNV Miscellaneous Information 1 [id number] XX 05/03/16 04:30 UNV Chlorhexidine Gluconate (Chlorhexidine 2% Cloth) 3 pack Taper DAILY@04 TOP 05/04/16 04:00 04/30/17 03:59 UNV Chlorhexidine Gluconate (Chlorhexidine 2% Cloth) 3 pack UNSCH PRN TOP HYGIENIC CARE 05/03/16 04:30 UNV Family History Noncontributory Mom - breast cancer Dad - [place] Social History Smokes 2 ppd, does not drunk or use any illicit drugs Physical Exam Vital Signs Vital Signs Date Time Temp Pulse Resp B/P Pulse Ox O2 Delivery O2 Flow Rate FiO2 05/03/16 04:11 100 70 05/03/16 03:00 Mechanical Ventilator 50 05/03/16 02:42 50 05/03/16 02:34 102 14 192/62 96 Ventilator 50 05/03/16 01:40 100 50 05/03/16 01:35 14 286/112 05/03/16 01:10 95.8 102 300/190 Physical Exam GENERAL: OBESE, well-developed patient. SKIN: Warm and dry. HEAD: Normocephalic. EYES: No scleral icterus. No injection or drainage. NECK: Supple, trachea midline. No JVD or lymphadenopathy. CARDIOVASCULAR: Regular rate and rhythm without murmurs, gallops, or rubs. RESPIRATORY: Breath sounds equal bilaterally. No accessory muscle use. GASTROINTESTINAL: Abdomen soft, non-tender, nondistended. MUSCULOSKELETAL: No cyanosis, or edema. BACK: Nontender without obvious deformity. No CVA tenderness. EXTREMITIES: Left weakness Laboratory Laboratory Tests Test 05/03/16 05/03/16 05/03/16 01:11 03:10 03:51 White Blood Count 19.0 Red Blood Count 5.22 Hemoglobin 15.0 Bedside Hemoglobin 16.0 Hematocrit 44.4 Bedside Hematocrit 47.0 Mean Corpuscular Volume 85.0 Mean Corpuscular Hemoglobin 28.8 Mean Corpuscular Hemoglobin 33.9 Concent Red Cell Distribution Width 14.1 Platelet Count 252 Mean Platelet Volume 9.9 Neutrophils (%) (Auto) 56.3 Lymphocytes (%) (Auto) 35.1 Monocytes (%) (Auto) 6.3 Eosinophils (%) (Auto) 1.7 Basophils (%) (Auto) 0.6 Neutrophils # (Auto) 10.7 Lymphocytes # (Auto) 6.7 Monocytes # (Auto) 1.2 Eosinophils # (Auto) 0.3 Basophils # (Auto) 0.1 CBC Comment AUTO DIFF Differential Total Cells 100 Counted Neutrophils % (Manual) 58 Band Neutrophils % 3 Lymphocytes % 31 Monocytes % 6 Eosinophils % 1 Neutrophils # (Manual) 11.8 Metamyelocytes 1 Differential Comment FINAL DIFF MANUAL Platelet Estimate NORMAL Platelet Morphology Comment NORMAL Red Cell Morphology Comment NORMAL Prothrombin Time 32.7 Prothromb Time International 2.8 Ratio Activated Partial 34.6 Thromboplast Time Fibrinogen 296 Bedside Sodium 137 Sodium Level 135 Bedside Potassium 3.7 Potassium Level 3.7 Bedside Chloride 99 Chloride Level 100 Carbon Dioxide Level 25.6 Anion Gap 9 Bedside Blood Urea Nitrogen 17 Blood Urea Nitrogen 14 Creatinine 0.90 Bedside Creatinine 0.7 Estimat Glomerular Filtration 63 Rate Bedside Glucose 325 Random Glucose 324 Calcium Level 9.2 Total Bilirubin 0.3 Aspartate Amino Transf 23 (AST/SGOT) Alanine Aminotransferase 28 (ALT/SGPT) Alkaline Phosphatase 93 Total Creatine Kinase 63 Troponin I LESS THAN 0.02 Total Protein 7.6 Albumin 4.1 Blood Type O NEGATIVE Antibody Screen NEGATIVE Blood Bank Comment CSF Glucose 153 CSF Total Protein 242.4 Date/Time Procedure Status Source Growth 05/03/16 03:51 Gram Stain Received Cerebral Spinal Fluid Shunt Fluid Pending 05/03/16 03:51 CSF Culture Received Cerebral Spinal Fluid Shunt Fluid Pending Result Diagram: 05/03/16 0111 05/03/16 0111 Imaging Last [address] 05/03/16 0000 Signed Impressions: Service Date/Time: Tuesday, May 03, 2016 01:18 - CONCLUSION: Large acute posterior fossa hemorrhage. There is also blood in the fourth and third ventricles. Report was called to Dr. Rodrigues at 1:30 AM. Haim Anaya MD Chest X-Ray 05/03/16 0000 Signed Impressions: Service Date/Time: Tuesday, May 03, 2016 01:53 - CONCLUSION: 1. Endotracheal tube tip is about 1.5 cm above the luis antonio. 2. Nasogastric tube courses into the stomach. 3. Lungs reasonably clear. Haim Anaya MD Assessment and Plan Problem List: (1) Hypertension ICD Code: I10 Status: Acute (2) Atrial fibrillation ICD Code: I48.91 Status: Acute (3) Coagulopathy ICD Code: D68.9 Status: Acute (4) Intracranial hemorrhage ICD Code: I62.9 Status: Acute (5) Diabetes ICD Code: E11.9 Status: Acute (6) Respiratory failure with hypoxia ICD Code: J96.91 Status: Acute Assessment and Plan Respiratory failure - intubated for an airway protection - mechanical ventilation - end tidal Co2 - no weaning until neurologically improved Intracranial hemorrhagic stroke - posterior fosa - needs posterior decompressive hemicraniectomy - plan for OR a.m. - Mannitol 1g/kg given initial dose - 3% NS - goal Na 160 - EVD - monitor ICP Coagulopathy - revers Coumadin with Vit K, FFP and Kcentra - repeat INR Hypertension - Cardene gtt - SBP goal < 150 DM - ISS A.Fib - rate controlled - Lopressor i.v. DVT/GI prophylaxis - TEDs/SCDs/Pepcid Critical Care: The total critical care time was 45 minutes. Time to perform other separately billable procedures was not included in the critical care time. Eugene Silvestre MD May 03, 2016 04:43
[2016-05-03] MEDS ORDERED: DEXTROSE 50% IN WATER 50 ML VIAL(D50) IV PUSH PRN ×2 (04:45→06:45)
[2016-05-03] MEDS ORDERED: GLUCAGON 1 MG/ML VIAL OTHER PRN (04:45)
--- NOTE | 2016-05-03 04:45 | PD.PROCEDR ---
Procedure Note Procedure Central Venous Catheter (CVC, Central Line) Placement Date: 05/03 Time: 400 Indication: Hemodynamic monitoring/Intravenous access A time-out was completed verifying correct patient, procedure, site, positioning , and special equipment if applicable. The patient was placed in a dependent position appropriate for central line placement based on the vein to be cannulated. The patients /left> < neck/ was prepped and draped in sterile fashion. 1% Lidocaine was used to anesthetize the surrounding skin area. A triple lumen <9-Cook Islander> Cordis catheter was introduced into the the </internal jugular vein> using the Seldinger technique <and under ultrasound guidance>. The catheter was threaded smoothly over the guide wire and appropriate blood return was obtained. Each lumen of the catheter was evacuated of air and flushed with sterile saline. The catheter was then sutured in place to the skin and a sterile dressing applied. Perfusion to the extremity distal to the point of catheter insertion was checked and found to be adequate. <Attending/Resident > was present for the entire procedure. Estimated Blood Loss: 5ml The patient tolerated the procedure well and there were no complications. Eugene Silvestre MD May 03, 2016 04:45
--- NOTE | 2016-05-03 04:46 | PD.PROCEDR ---
Procedure Note Procedure ARTERIAL LINE (A-Line) PLACEMENT Date: 05/03 Time: 455 Indication: Hemodynamic monitoring A time-out was completed verifying correct patient, procedure, site, positioning , and special equipment if applicable. Allens test was performed to ensure adequate perfusion. The patients <right wrist was prepped and draped in sterile fashion. 1% Lidocaine was used to anesthetize the area. A /20G> Arrow arterial line was introduced into the <radial/femoral> artery. The catheter was threaded over the guide wire and the needle was removed with appropriate pulsatile blood return. The catheter was then sutured in place to the skin and a sterile dressing applied. Perfusion to the extremity distal to the point of catheter insertion was checked and found to be adequate. <Attending/Resident> was present for the entire procedure. Estimated Blood Loss: 5ml The patient tolerated the procedure well and there were no complications. Eugene Silvestre MD May 03, 2016 04:46
--- NOTE | 2016-05-03 04:48 | RADRPT ---
EXAM DATE/TIME: 05/03/2016 03:27 [facility] COMPARISON: CHEST SINGLE AP, May 03, 2016, 1:53. INDICATIONS : Evaluate and confirm Central Line placement. MEDICAL HISTORY : Hypertension. Chronic obstructive pulmonary disease. Stroke. SURGICAL HISTORY : Appendectomy. Cholecystectomy. Hysterectomy. ENCOUNTER: Initial ACUITY: 1 day PAIN SCORE: Non-responsive. LOCATION: Bilateral chest FINDINGS: Lungs remain reasonably clear. No pleural effusion. No pneumothorax. Endotracheal tube tip is now approximately 4 cm above the luis antonio. Nasogastric tube again seen in the coiled in the stomach. There is a new left IJ central venous catheter with tip at the right atriocava l junction. CONCLUSION: 1. Left IJ central venous catheter has its tip at the atriocaval junction. 2. A new tracheal tube tip is about 4 cm above the luis antonio. 3. Lungs remain reasonably clear. Haim Anaya MD on May 03, 2016 at 4:44 Board Certified Radiologist. This report was verified electronically.
[2016-05-03] MEDS: METOPROLOL TARTRATE 5 MG/5 ML VIAL IV PUSH SCH ×4 (04:49→22:42)
[2016-05-03 04:52] LABS: CSF EOSINOPHILS 2 %; CSF LYMPHOCYTES 8 %; CSF NEUTROPHILS 90 %
[2016-05-03 04:56] LABS: BLOOD GAS CARBOXYHEMOGLOBIN 3.2 % (0-4); BLOOD GAS HCO3 25 mmol/L (22-26); BLOOD GAS METHEMOGLOBIN 1.4 % (0-2); BLOOD GAS O2 HGB SATURATION 94 % (90-100); BLOOD GAS OXYGEN CONTENT 16.2 Vol % (12.0-20.0); BLOOD GAS PCO2 49 mmHg (38-42); BLOOD GAS PO2 145 mmHg (61-120); TEMP CORR TO 98.6
[2016-05-03 04:57] LABS: CRITICAL VALUE NO; DRAW SITE ALINE; FIO2 50 %; OXYGEN DEVICE VENTILATOR; STAT NO; ULNAR PULSE PRESENT; VENT SETTINGS AC/20/550/PEEP5
[2016-05-03] MEDS: PROPOFOL 1000 MG/100 ML INJ 100 ML IV SCH ×5 (05:06→22:42)
[2016-05-03 05:59] LABS: BLOOD GAS BASE EXCESS -1.1 mmol/L (-2-2); BLOOD GAS CARBOXYHEMOGLOBIN 2.6 % (0-4); BLOOD GAS HCO3 24 mmol/L (22-26); BLOOD GAS METHEMOGLOBIN 1.3 % (0-2); BLOOD GAS O2 HGB SATURATION 95 % (90-100); BLOOD GAS OXYGEN CONTENT 16.9 Vol % (12.0-20.0); BLOOD GAS PCO2 46 mmHg (38-42); BLOOD GAS PO2 179 mmHg (61-120); BLOOD GAS TOTAL HGB 12.3 G/DL (12.0-16.0); CRITICAL VALUE NO; DRAW SITE ALINE; FIO2 50 %; OXYGEN DEVICE VENTILATOR; STAT NO; TEMP CORR TO 98.6; VENT SETTINGS AC/20/600/PEEP5
[2016-05-03 06:04] LABS: INTERNATIONAL NORMALIZED RATIO 1.3 RATIO; PROTHROMBIN TIME - PATIENT 14.4 SEC (9.8-11.6)
[2016-05-03] MEDS ORDERED: MISC INFORMATION XX ONE (06:45)
[2016-05-03] MEDS ORDERED: INSULIN ASPART SUPPLEMENTAL SCALE SQ SCH (07:00)
[2016-05-03] MEDS: INSULIN DETEMIR 100 UNITS/ML VIAL SQ SCH ×3 (07:00→20:06)
[2016-05-03] MEDS: INSULIN REGULAR (IV INFUSION) 100 UNITS in SODIUM CHLORIDE 0.9% INJ 99 ML IV SCH (07:10)
--- NOTE | 2016-05-03 08:28 | EKG ---
Date Performed: 05/03/2016 Time Performed: 02:06:37 PTAGE: 65 years EKG: SINUS TACHYCARDIA POSSIBLE ANTERIOR MYOCARDIAL INFARCTION POSSIBLE INFERIOR MYOCARDIAL INFA RCTION ABNORMAL RHYTHM ECG PREVIOUS TRACING : 03/14/2015 05.40 Compared to previous tracing, possible inferior and anterio r infarction patterns are now more evident. DOCTOR: Gonzalo Stahl Interpretating Date/Time 05/03/2016 08:28:31
[2016-05-03] MEDS: ARTIFICIAL TEARS OPTH SOLN 15 ML BTL EACH EYE SCH ×3 (08:55→18:05)
[2016-05-03] MEDS: DOCUSATE SODIUM 100 MG/10 ML UDC G-TUBE SCH ×2 (08:56→20:06)
[2016-05-03] MEDS ORDERED: FAMOTIDINE 20 MG/2 ML VIAL IV PUSH SCH (09:00)
[2016-05-03] MEDS: SODIUM CHLORIDE 0.9% FLUSH 5 ML FLUSH IV FLUSH SCH ×2 (09:01→20:06)
[2016-05-03] MEDS ORDERED: THROMBIN (TOPICAL) 5,000 UNIT VIAL ONE ×2 (09:38→12:35)
[2016-05-03] MEDS ORDERED: MICROFIBRILLAR COLLAGEN HEMOSTAT 70 X 35 MM BANDAGE ONE (09:38)
[2016-05-03] MEDS ORDERED: DEXAMETHASONE SOD PHOS 4 MG/ML VIAL ONE (09:38)
[2016-05-03] MEDS ORDERED: LIDOCAINE 1%/EPINEPHrine 1:100,000 SOLN 30 ML VIAL ONE (09:38)
[2016-05-03] MEDS ORDERED: ceFAZolin INJ 1,000 MG VIAL ONE (09:38)
[2016-05-03] MEDS ORDERED: GELFOAM SIZE 100 ONE ×2 (09:38→12:36)
[2016-05-03] MEDS ORDERED: GENTAMICIN SULFATE 80 MG/2 ML VIAL ONE (09:39)
[2016-05-03] MEDS ORDERED: LABETALOL HCL 100 MG/20 ML VIAL IVS PRN (11:00)
[2016-05-03] MEDS ORDERED: VANCOMYCIN HCL 1000 MG VIAL ONE (11:35)
--- NOTE | 2016-05-03 11:52 | MB ---
cc: PETE HARDIN M.D. DATE OF CONSULTATION: 05/03/2016 REASON FOR CONSULTATION A 65-year-old seen in neurological consultation with a history of Stroke Alert. HISTORY OF PRESENT ILLNESS I was called about 1:00 a.m. this morning by the ED physician and the case was discussed. She was immediately sent to CT scan which subsequently was reviewed. The study showed a cerebellar bleed, right more than left, causing mass effect. Subsequently the neurosurgeons were consulted. She now has a ventriculostomy and she is going to the OR with Dr. Chavez. The patient had been on Coumadin and Plavix and developed left-sided weakness. By the time she was in the emergency room she was barely responsive and had apparent minimal speech. She has a history of multiple strokes in 2002. It appears that she has been on Coumadin and also on Plavix, perhaps since 2002, although the was not sure about the dates. PAST MEDICAL HISTORY 1. Diabetes. 2. COPD. 3. Depression. 4. Hypertension. 5. Hyperlipidemia. MEDICATIONS The medication list was reviewed. NEUROLOGICAL EXAMINATION The patient is now on a ventilator. She was intubated in the emergency room. She has minimally reactive pupils, but they are about the same size. The right eye is mildly deviated outwards. The patient is sedated and has a ventriculostomy. Reflexes show bilateral extensor plantar responses and minimal reflexes at the elbows and knees. IMAGING CT brain as discussed above. LABORATORY WBC 19.0, hemoglobin 15.0, platelets 252. Sodium 137, repeat 129. Glucose initially was 325. INR was 2.8 this morning and repeat is 1.3. She has been given vitamin-K and fresh frozen plasma. ASSESSMENT 1. Intracranial hemorrhage, posterior fossa. 2. Coagulopathy. 3. Long-term use of Coumadin and Plavix. 4. History of multiple strokes in 2002. RECOMMENDATION The patient came in as a Stroke Alert and evidently not a candidate for TPA because of the intracranial hemorrhage. At this point she is going to the OR by neurosurgery for decompression. Neurological follow-up will be on a p.r.n. basis as the care is mostly neurosurgical. Thank you for asking us to participate in her care. MD PATY Cortez/BT /8:40 AM /11:39 AM
[2016-05-03] MEDS ORDERED: NORMOSOL R INJ 1,000 ML IV ONE (12:00)
[2016-05-03] MEDS ORDERED: ACETAMINOPHEN 1000 MG/100 ML VIAL IV ONE (12:00)
[2016-05-03] MEDS ORDERED: PROPOFOL 200 MG/20 ML AMP IV ONE (12:00)
[2016-05-03] MEDS ORDERED: ONDANSETRON HCL 4 MG/2 ML VIAL IV PUSH ONE (12:00)
[2016-05-03] MEDS ORDERED: LACTATED RINGER'S 1000 ML INJ 1,000 ML IV ONE (12:00)
[2016-05-03] MEDS ORDERED: VANCOMYCIN HCL 1000 MG VIAL OTHER ONE (12:03)
[2016-05-03] MEDS: NS + KCL 20 MEQ INJ 1,000 ML IV SCH ×2 (12:25→22:25)
[2016-05-03] MEDS ORDERED: POTASSIUM CHLOR 20 MEQ PREMIX 100 ML IV PRN (12:30)
[2016-05-03] MEDS ORDERED: CALCIUM GLUCONATE 10% 1 GM/10 ML VIAL IV PRN (12:30)
[2016-05-03] MEDS ORDERED: ACETAMINOPHEN/HYDROcodone 325 MG/10 MG TAB PO PRN ×2 (12:30)
[2016-05-03] MEDS ORDERED: MORPHINE SULFATE 4 MG/ML INJ IV PUSH PRN (12:30)
[2016-05-03] MEDS ORDERED: BISACODYL 10 MG SUPP PR PRN (12:30)
[2016-05-03] MEDS ORDERED: MAGNESIUM SULFATE INJ 4 GM in SODIUM CHLORIDE 0.9% INJ 100 ML IV PRN (12:30)
[2016-05-03 12:58] LABS: BLOOD GAS CARBOXYHEMOGLOBIN 1.5 % (0-4); BLOOD GAS HCO3 24 mmol/L (22-26); BLOOD GAS METHEMOGLOBIN 1.2 % (0-2); BLOOD GAS O2 HGB SATURATION 96 % (90-100); BLOOD GAS OXYGEN CONTENT 16.4 Vol % (12.0-20.0); BLOOD GAS PCO2 47 mmHg (38-42); BLOOD GAS PO2 174 mmHg (61-120); BLOOD GAS TOTAL HGB 11.9 G/DL (12.0-16.0); CRITICAL VALUE NO; FIO2 50 %; OXYGEN DEVICE VENTILATOR; STAT YES; TEMP CORR TO 98.6; VENT SETTINGS OR
[2016-05-03 13:25] LABS: BICARBONATE 27.3 MEQ/L (21.0-32.0); POTASSIUM 4.2 MEQ/L (3.5-5.1)
[2016-05-03 15:35] LABS: BLOOD GAS BASE EXCESS -2.1 mmol/L (-2-2); BLOOD GAS CARBOXYHEMOGLOBIN 2.5 % (0-4); BLOOD GAS HCO3 22 mmol/L (22-26); BLOOD GAS METHEMOGLOBIN 1.4 % (0-2); BLOOD GAS O2 HGB SATURATION 96 % (90-100); BLOOD GAS OXYGEN CONTENT 17.1 Vol % (12.0-20.0); BLOOD GAS PCO2 34 mmHg (38-42); BLOOD GAS PO2 181 mmHg (61-120); BLOOD GAS TOTAL HGB 12.5 G/DL (12.0-16.0); CRITICAL VALUE NO; FIO2 50 %; OXYGEN DEVICE VENTILATOR; STAT NO; TEMP CORR TO 98.6; VENT SETTINGS OR
[2016-05-03] MEDS ORDERED: fentaNYL CITRATE 250 MCG/5 ML AMP ONE (17:02)
[2016-05-03 17:16] LABS: BLOOD GAS BASE EXCESS -1.1 mmol/L (-2-2); BLOOD GAS CARBOXYHEMOGLOBIN 2.1 % (0-4); BLOOD GAS HCO3 23 mmol/L (22-26); BLOOD GAS METHEMOGLOBIN 1.1 % (0-2); BLOOD GAS O2 HGB SATURATION 96 % (90-100); BLOOD GAS OXYGEN CONTENT 15.3 Vol % (12.0-20.0); BLOOD GAS PCO2 40 mmHg (38-42); BLOOD GAS PO2 165 mmHg (61-120); CRITICAL VALUE NO; DRAW SITE ART LINE; FIO2 50 %; OXYGEN DEVICE VENTILATOR; STAT NO; TEMP CORR TO 98.6
[2016-05-03] MEDS: levETIRAcetam INJ 500 MG in SODIUM CHLORIDE 0.9% INJ 100 ML IV SCH (17:50)
--- NOTE | 2016-05-03 18:01 | PD.OP ---
Operative Report Date of Surgery: May 03, 2016 Preoperative Diagnosis: Cerebellar hemorrhage Postoperative Diagnosis: Cerebellar hemorrhage Procedure: Suboccipital craniesctomy, C1 laminectomy, evacuation of cerebellar hemorrhage, duroplasty Anesthesia: general Surgeon: Oumar Chavez Well Tester(s): Radha hansen Operation and Findings: INDICATIONS FOR THE PROCEDURE The patient is a 65 year old female who was brought to [facility] with a large cerebellar hemorrhage causing mass effect in the posterior fossa. She was anticoagulated with Coumadin. She initially underwent a ventriculostomy and correction of her abnormal INR. A image-guided suboccipital decompressive craniectomy with surgical evacuation and duroplasty were indicated. I have discussed with her the details including the [id number] details of the surgical procedure, its indications, alternatives, risks, and potential complications. Risks and potential complications include, but are not limited to, infection, blood loss, CSF leak, partial or complete loss of sight in one or both eyes, paresis, paralysis, permanent pain or difficulty swallowing, loss of bowel or bladder function, complications from anesthesia, blood clot, stroke, myocardial infarction, or even . The patient's fully understood. All their questions were answered. No guaranties were given. He voiced requesting the procedure and signed informed consents. They were offered the possibility of delaying the procedure and continues nonoperative treatment. DETAILS OF THE SURGICAL PROCEDURE The patient was then transferred to the operating room, endotracheally intubated , a Batista catheter, bilateral DIDIER hose, sequential compression devices were kept throughout the procedure. The eyes were tapped shut after ointment was applied by the anesthesiologist to prevent corneal abrasion. The electrophysiological team placed the needles and electrodes in their proper location and baseline SSEP's and motor evoked potentials were registered. A Tesfaye hugger was placed over the expossed lower body to maintain control of the core body temperature. The patient was positioned prone on a 30/80 table with his head in a flexed and rigid fixation using the Perry head of history. All pressure points were carefully padded with egg crate mattress. The occipital area was shaved, prepped, draped in the usual sterile fashion. A midline incision was outlined on the skin and infiltrated with 1% lidocaine with epinephrine 1:100,000 dilution. The skin incision was made with a #10 blade. Brennen clips were applied to the scalp and the dissection was carried out through the avascular midline down to the suboccipital bone. Surgical retractors were placed on the incision and the posterior arch of C1 was carefully exposed. Using the TPS drill with the [employer] AM-3 drill bit, the bone carefully thinned to a paper-like layer which was carefully elevated with a small thin dissector. The superior part of the arch of C1 was carefully removed and laminectomy of C1 was performed with extreme care to preserve and not injure the vertebral arteries. At this point in the procedure, the operating microscope was draped in the usual sterile fashion and brought to the field. The rest of the procedure was performed using microdissection technique with exception of the final closure. Under the operative microscope, the dura was carefully opened with a #15 blade and sissors, and 4-0 Nurolon sutures were sutured to the adjacent fascia. Using microbipolar forceps, microscissors, microretractors, microbiopsyforceps, and microsurgical dissection technique, the approach to the hematoma was initiated. Using microsurgical dissection technique the evacuation of the hematoma was carefully carried out. A specimen was sent to the lab for permanent histological analysis. Hemostasis was performed in the cavity of the tumor using a bipolar forceps as well as Surgicel. Excellent hemostasis was achieved and the cavity A pericardium patch was then brought to the field and the dura was carefully reconstructed in a watertight fashion using 6-0 Prolene suture. The dural closure was then reinforced using Tisseel fibrin glue. The suboccipital incision was then closed in multiple layers using 0 Vicryl suture and 3-0 Vicryl sutures were used to close the galea. The skin was closed with running 3-0 nylon. At the end of the procedure, the sponge, needle, and instrument counts were all correct. Estimated blood loss was less than 250 cc, no blood transfusion was given, no intraoperative complications occurred. The patient received preoperative prophylactic antibiotics. The patient was then transferred to the recovery room in a stable condition. Oumar Chavez MD May 03, 2016 18:01 Oumar Chavez MD May 03, 2016 18:01
[2016-05-03] MEDS: niCARdipine INJ 50 MG in SODIUM CHLORID 0.9% 500 ML INJ 480 ML IV SCH (18:36)
[2016-05-03] MEDS: SODIUM CHLORIDE 0.9% FLUSH 5 ML FLUSH IVF SCH (20:06)
[2016-05-03] MEDS ORDERED: DOCUSATE SODIUM 100 MG CAP PO SCH (21:00)
[2016-05-03] MEDS: VANCOMYCIN INJ 1,000 MG in SODIUM CHLOR 0.9% 250 ML INJ 250 ML IV SCH (22:42)
[2016-05-04] VITALS (20 sets, daily range): BP systolic 135–156; BP diastolic 51–56; PULSE 101–120; RESP 25–28; TEMP 99–100.4; O2SAT 97–100
[2016-05-04] MEDS: levETIRAcetam INJ 500 MG in SODIUM CHLORIDE 0.9% INJ 100 ML IV SCH ×3 (01:50→23:14)
[2016-05-04] MEDS: niCARdipine INJ 50 MG in SODIUM CHLORID 0.9% 500 ML INJ 480 ML IV SCH ×6 (01:54→21:51)
[2016-05-04] MEDS: PROPOFOL 1000 MG/100 ML INJ 100 ML IV SCH ×7 (02:40→23:13)
[2016-05-04] MEDS: CHLORHEXIDINE GLUCONATE 2 % 1 PACK (2 CLOTHS) TOP SCH (04:00)
[2016-05-04] MEDS: SODIUM CHLOR 0.9% 1000 ML INJ 1,000 ML IV SCH ×2 (04:12→16:07)
[2016-05-04 05:00] LABS: BASOPHIL # 0.2 TH/MM3 (0-0.2); BASOPHIL % 0.8 % (0.0-2.0); HEMATOCRIT 30.8 % (35.0-46.0); HEMO FLAGS DIFF FINAL; LYMPH % 7.9 % (9.0-44.0); LYMPHOCYTE # 1.7 TH/MM3 (1.0-4.8); MEAN CELL VOLUME 86.2 FL (80.0-100.0); MEAN CORPUSCULAR HEMOGLOBIN 28.5 PG (27.0-34.0); MONO % 3.8 % (0.0-8.0); NEUT % 87.5 % (16.0-70.0); PLATELET COUNT 183 TH/MM3 (150-450); RED BLOOD COUNT 3.57 MIL/MM3 (4.00-5.30); RED CELL DISTRIBUTION WIDTH 14.7 % (11.6-17.2); WHITE BLOOD COUNT 21.7 TH/MM3 (4.0-11.0)
[2016-05-04] MEDS: INSULIN REGULAR (IV INFUSION) 100 UNITS in SODIUM CHLORIDE 0.9% INJ 99 ML IV SCH (05:25)
[2016-05-04] MEDS: METOPROLOL TARTRATE 5 MG/5 ML VIAL IV PUSH SCH ×4 (05:26→22:19)
[2016-05-04 05:35] LABS: BICARBONATE 24.1 MEQ/L (21.0-32.0); POTASSIUM 3.3 MEQ/L (3.5-5.1)
[2016-05-04 05:57] LABS: CALCIUM-PROTEIN CORRECTED 8.1 MG/DL (8.5-10.1)
[2016-05-04] MEDS: NS + KCL 20 MEQ INJ 1,000 ML IV SCH ×2 (06:57→17:08)
[2016-05-04] MEDS: PANTOPRAZOLE SOD 40 MG DELAYED RELEASE TAB PO SCH (07:49)
[2016-05-04] MEDS: DOCUSATE SODIUM 100 MG/10 ML UDC G-TUBE SCH ×2 (08:07→20:09)
[2016-05-04] MEDS: PANTOPRAZOLE SODIUM 40 MG VIAL IVP SCH (08:07)
[2016-05-04] MEDS: INSULIN DETEMIR 100 UNITS/ML VIAL SQ SCH ×3 (08:07→20:09)
[2016-05-04] MEDS: MORPHINE SULFATE 4 MG/ML INJ IV PUSH PRN ×3 (08:09→18:49)
[2016-05-04] MEDS: ARTIFICIAL TEARS OPTH SOLN 15 ML BTL EACH EYE SCH ×3 (08:27→17:02)
[2016-05-04] MEDS: SODIUM CHLORIDE 0.9% FLUSH 5 ML FLUSH IV FLUSH SCH (08:27)
[2016-05-04] MEDS: SODIUM CHLORIDE 0.9% FLUSH 5 ML FLUSH IVF SCH ×2 (08:28→20:42)
[2016-05-04] MEDS ORDERED: SODIUM PHOSPHATE INJ 30 MMOL in SODIUM CHLOR 0.9% 250 ML INJ 240 ML IV PRN (08:45)
[2016-05-04] MEDS ORDERED: MAGNESIUM SULFATE INJ 2 GM in SODIUM CHLORIDE 0.9% INJ 96 ML IV PRN (08:45)
[2016-05-04] MEDS ORDERED: POTASSIUM CHLOR 40 MEQ PREMIX 100 ML IV PRN ×2 (08:45)
[2016-05-04] MEDS ORDERED: POTASSIUM PHOSPHATE INJ 30 MMOL in SODIUM CHLOR 0.9% 250 ML INJ 250 ML IV PRN (08:45)
[2016-05-04] MEDS ORDERED: POTASSIUM PHOSPHATE MONOBASIC 500 MG TAB PO PRN (08:45)
[2016-05-04] MEDS ORDERED: POTASSIUM PHOSPHATE MONOBASIC 500 MG TAB PO/TUBE PRN (08:45)
[2016-05-04] MEDS ORDERED: MAGNESIUM OXIDE 400 MG TAB PO PRN (08:45)
[2016-05-04] MEDS ORDERED: POTASSIUM CHLOR 20 MEQ PREMIX 100 ML IV PRN ×2 (08:45)
[2016-05-04] MEDS ORDERED: MAGNESIUM SULFATE INJ 4 GM in SODIUM CHLORIDE 0.9% INJ 92 ML IV PRN (08:45)
[2016-05-04] MEDS ORDERED: GLUCAGON 1 MG/ML VIAL IM/SQ PRN (08:45)
[2016-05-04] MEDS ORDERED: POTASSIUM CL 40 MEQ/30 ML LIQ UDC PO/TUBE PRN ×2 (08:45)
[2016-05-04] MEDS ORDERED: PNEUMOCOCCAL POLYVALENT INJ 25 MCG/0.5 ML SYR IM ONE (10:00)
[2016-05-04] MEDS: VANCOMYCIN INJ 1,000 MG in SODIUM CHLOR 0.9% 250 ML INJ 250 ML IV SCH (10:45)
[2016-05-04] MEDS: INSULIN ASPART SUPPLEMENTAL SCALE SQ SCH ×4 (11:58→23:18)
--- NOTE | 2016-05-04 13:46 | HHI.NSPN ---
(Bri Merchant) Note Status Status: Progress Note (Bri Merchant) Interval History Interval History This is a 65 year old female brought in by EMS as a stroke alert. She has history of multiple ischemic strokes in the past with residual left-sided weakness from the strokes. Patient has a history of Antiphospholipid syndrome and is on anticoagulated Coumadin. Apparently she was sitting down watching TV with her when she became unresponsive, with aphasia, nausea vomiting, dizziness, and increasing left-sided weakness. She is a known tyoe II diabetic and appears to be uncontrolled in ketoacidosis. EMS was called. She was brought to ED stroke alert. CT head revealed a posterior fossa ICH. She underwent emergen posterior fossa craniectomy with evacuation of cerebellar bleed and placement of ventriculostomy drain on 05/03/16. 05/04: well sedated. Pupils equal. EVD at 0 cm H20, ICPs below 10. (Bri Merchant) Labs, Micro, & Vital Signs Results Date Time Temp Pulse Resp B/P Pulse Ox O2 Delivery O2 Flow Rate FiO2 05/04/16 12:00 50 05/04/16 12:00 99.0 106 25 140/55 98 05/04/16 12:00 106 05/04/16 10:03 98 40 05/04/16 10:00 111 05/04/16 08:00 100.4 120 25 156/56 98 05/04/16 08:00 50 05/04/16 08:00 120 05/04/16 07:43 99 50 05/04/16 07:43 99 40 05/04/16 06:00 103 05/04/16 04:18 100 50 05/04/16 04:00 104 05/04/16 04:00 50 05/04/16 04:00 99.7 104 28 146/53 99 05/04/16 02:00 101 05/04/16 01:26 99 50 05/04/16 01:26 99 50 05/04/16 00:00 99.3 101 28 138/52 98 05/04/16 00:00 50 05/04/16 00:00 101 05/03/16 22:21 99 50 05/03/16 22:00 103 05/03/16 20:11 99 50 05/03/16 20:11 99 50 05/03/16 20:00 50 05/03/16 20:00 110 05/03/16 20:00 99.3 110 28 160/60 98 05/03/16 18:00 101 05/03/16 16:57 100 50 05/03/16 16:52 100 50 05/03/16 16:52 100 50 05/04/16 07:00 Intake Total 3053 ml Output Total 2340 ml Balance 713 ml Constitutional Vital Signs Date Time Temp Pulse Resp B/P Pulse Ox O2 Delivery O2 Flow Rate FiO2 05/04/16 12:00 50 05/04/16 12:00 99.0 106 25 140/55 98 05/04/16 12:00 106 05/04/16 10:03 98 40 05/04/16 10:00 111 05/04/16 08:00 100.4 120 25 156/56 98 05/04/16 08:00 50 05/04/16 08:00 120 05/04/16 07:43 99 50 05/04/16 07:43 99 40 05/04/16 06:00 103 05/04/16 04:18 100 50 05/04/16 04:00 104 05/04/16 04:00 50 05/04/16 04:00 99.7 104 28 146/53 99 05/04/16 02:00 101 05/04/16 01:26 99 50 05/04/16 01:26 99 50 05/04/16 00:00 99.3 101 28 138/52 98 05/04/16 00:00 50 05/04/16 00:00 101 05/03/16 22:21 99 50 05/03/16 22:00 103 05/03/16 20:11 99 50 05/03/16 20:11 99 50 05/03/16 20:00 50 05/03/16 20:00 110 05/03/16 20:00 99.3 110 28 160/60 98 05/03/16 18:00 101 05/03/16 16:57 100 50 05/03/16 16:52 100 50 05/03/16 16:52 100 50 05/04/16 07:00 Intake Total 3053 ml Output Total 2340 ml Balance 713 ml (Bri Merchant) Review of Systems/Exam Exam Ms. Spann is intubated and well sedated. Right EVD in place at 0 cm H20, draining bloody CSF. ICPs= 6 Wound with clean dressing Cranial Nerves: Pupils equal, round, reactive to light. Eyes appear conjugated. Face musculature appeared symmetrical at rest. Sensorimotor muscle tone and bulk are normal. No movements or withdrawals, well sedated Reflexes: Plantars silent b/l Cerebellar: Examination cannot be adequately assessed due to the patient's neurological condition. (Bri Merchant) Medications Current Medications Current Medications Medications (Trade) Dose Ordered Sig/Michelle Route PRN Reason Start Time Stop Time Status Last Admin Dose Admin Sodium Chloride (NS 1000 ml Inj) 1,000 ml @ 84 mls/hr [id number] IV 05/03/16 04:22 05/04/16 04:12 Midazolam HCl (Versed Inj) 2 mg Q1H PRN IV SEDATION 05/03/16 04:30 Artificial Tears (Tears Naturale Opth Soln) 1 drop TID EACH EYE 05/03/16 09:00 05/04/16 12:11 Ondansetron HCl (Zofran Inj) 4 mg Q6H PRN IV NAUSEA OR VOMITING 05/03/16 04:30 Metoclopramide HCl (Reglan Inj) 10 mg Q6H PRN IV NAUSEA OR VOMITING 05/03/16 04:30 Docusate Sodium (Colace Liq) 100 mg Q12H G-TUBE 05/03/16 09:00 05/04/16 08:07 Miscellaneous Information 1 Q361D XX 05/03/16 04:30 05/03/16 04:30 Chlorhexidine Gluconate (Chlorhexidine 2% Cloth) 3 pack Taper DAILY@04 TOP 05/04/16 04:00 04/30/17 03:59 05/04/16 04:00 Chlorhexidine Gluconate 3 pack 3 pack UNSCH PRN TOP HYGIENIC CARE 05/03/16 04:30 Propofol (Diprivan 1000 Mg/100ml Inj) 100 ml @ 0 mls/hr TITRATE IV 05/03/16 04:30 05/04/16 13:19 Metoprolol Tartrate (Lopressor Inj) 2.5 mg Q6H IV PUSH 05/03/16 05:00 05/04/16 10:45 Labetalol HCl 20 mg 20 mg Q2H PRN IVS SBP greater than 160mm Hg 05/03/16 11:00 05/03/16 10:54 Potassium Chloride/Sodium Chloride (NS + KCl 20 Meq Inj) 1,000 ml @ 100 mls/hr Q10H IV 05/03/16 12:25 05/04/16 06:57 IV Flush (NS Flush) 2 ml UNSCH PRN IVF FLUSH AFTER USING IV ACCESS 05/03/16 12:30 IV Flush 2 ml 2 ml BID IVF 05/03/16 21:00 05/03/16 20:06 Levetriacetam/ Sodium Chloride (Keppra Inj/NS Inj) 105 ml @ 400 mls/hr Q12H IV 05/03/16 13:00 05/04/16 12:11 Bisacodyl (Dulcolax Supp) 10 mg DAILY PRN [place] CONSTIPATION 05/03/16 12:30 Pantoprazole Sodium (Protonix) 40 mg DAILY PO 05/04/16 09:00 Pantoprazole Sodium (Protonix Inj) 40 mg DAILY IVP 05/04/16 09:00 05/04/16 08:07 Calcium Gluconate 1 gm 1 gm UNSCH PRN IV SEE LABEL COMMENTS 05/03/16 12:30 Potassium Chloride 100 ml @ 50 mls/hr UNSCH PRN IV POTASSIUM LESS THAN 4 05/03/16 12:30 05/04/16 06:56 Magnesium Sulfate/ Sodium Chloride (Magnesium Sulfate Inj/NS Inj) 108 ml @ 108 mls/hr UNSCH PRN IV MAGNESIUM LESS THAN 2 05/03/16 12:30 Acetaminophen/ Hydrocodone Bitart (Foster 10-325 Mg) 1 tab Q4H PRN PO PAIN SCALE 1 TO 5 05/03/16 12:30 Acetaminophen/ Hydrocodone Bitart (Foster 10-325 Mg) 2 tab Q4H PRN PO PAIN SCALE 6 TO 10 05/03/16 12:30 Morphine Sulfate (Morphine Inj) 2 mg Q2H PRN IV PUSH PAIN SCALE 1 TO 6 05/03/16 12:30 Morphine Sulfate (Morphine Inj) 4 mg Q2H PRN IV PUSH PAIN SCALE 7 TO 10 05/03/16 12:30 05/04/16 08:09 Acetaminophen 650 mg 650 mg Q4H PRN PO TEMPERATURE > 101.5 F 05/03/16 12:30 Nicardipine HCl/ Sodium Chloride (Cardene Inj/NS 500 ml Inj) 500 ml @ 0 mls/hr TITRATE IV 05/03/16 18:17 05/04/16 09:07 Insulin Detemir 30 units 30 units Q12HR SQ 05/04/16 10:00 Potassium Chloride 100 ml @ 50 mls/hr Q2H PRN IV For Potassium 2.8 - 3.2 mEq/L 05/04/16 08:45 Potassium Chloride (KCl 20 Meq Premix Inj) 100 ml @ 50 mls/hr Q2H PRN IV For Potassium 2.8 - 3.2 mEq/L 05/04/16 08:45 Potassium Chloride 40 meq 40 meq UNSCH PRN PO/TUBE For Potassium 3.3 - 3.5 mEq/L 05/04/16 08:45 Potassium Chloride 100 ml @ 25 mls/hr UNSCH PRN IV For Potassium 3.3 - 3.5 mEq/L 05/04/16 08:45 Potassium Chloride 100 ml @ 50 mls/hr Q2H PRN IV For Potassium 3.3 - 3.5 mEq/L 05/04/16 08:45 Magnesium Sulfate/ Sodium Chloride (Magnesium Sulfate Inj/NS Inj) 100 ml @ 50 mls/hr UNSCH PRN IV For Magnesium 0.9 - 1.1 mg/dL 05/04/16 08:45 Magnesium Oxide 800 mg 800 mg UNSCH PRN PO For Magnesium 1.2 - 1.6 mg/dL 05/04/16 08:45 Magnesium Sulfate/ Sodium Chloride (Magnesium Sulfate Inj/NS Inj) 100 ml @ 50 mls/hr UNSCH PRN IV For Magnesium 1.2 - 1.6 mg/dL 05/04/16 08:45 Potassium Phosphate 2000 mg 2,000 mg Q4H PRN PO For Phosphorus < 2.5 mg/dL 05/04/16 08:45 Sodium Phosphate/ Sodium Chloride (Sodium Phosphate Inj/NS 250 ml Inj) 250 ml @ 42 mls/hr UNSCH PRN IV For Phosphorus < 2.5 mg/dL 05/04/16 08:45 Potassium Chloride (KCl 40 Meq/30 ml Liq) 40 meq UNSCH PRN PO/TUBE SEE LABEL COMMENTS 05/04/16 08:45 Potassium Phosphate 2000 mg 2,000 mg UNSCH PRN PO/TUBE SEE LABEL COMMENTS 05/04/16 08:45 Potassium Phosphate/Sodium Chloride (Potassium Phosphate Inj/NS 250 ml Inj) 260 ml @ 42 mls/hr UNSCH PRN IV SEE LABEL COMMENTS 05/04/16 08:45 Insulin Aspart (NovoLOG SUPPLEMENTAL SCALE) 1 Q4HR SQ 05/04/16 12:00 Dextrose (D50w (Vial) Inj) 25 ml UNSCH PRN IV HYPOGLYCEMIA-SEE COMMENTS 05/04/16 08:45 Glucagon (Glucagon Inj) 1 mg UNSCH PRN IM/SQ HYPOGLYCEMIA-SEE COMMENTS 05/04/16 08:45 (Bri Merchant) Medical Decision Making MDM Remarks 65 y/o female with cerebellar bleed coagulopathy with supratherapeutic INR, s/p Vitamin K and KCentra history of antiphospholipid antibody (Bri Merchant) Plan Plan Remarks cont ventriculostomy draining at 0 cm H20 with ICP monitoring cont hyperosmotic tx with 3% NS cont well sedated for now, serial neuro checks no anticoagulants at this time due to ICH, SCDs and TEDs for DVT prophylaxis ( Bri Merchant) Attending Statement The exam, history, and the medical decision-making described in the above note were completed with the assistance of the mid-level provider. I reviewed and agree with the findings presented. I attest that I had a [id number] encounter with the patient on the same day, and personally performed and documented my assessment and findings in the medical record. (Oumar Chavez MD) Bri Merchant May 04, 2016 13:46 Oumar Chavez MD May 09, 2016 17:59
--- NOTE | 2016-05-04 16:37 | HHI.CCPN ---
Subjective Remarks/Hospital Course 05/03: 65 years old female was brought in by EMS for stroke alert. Patient has history of multiple strokes in the past. Patient has residual left-sided weakness from the strokes. Patient has an Antiphospholipid syndrome and is on Coumadin. Patient was sitting down watching TV with her then patient started became more unresponsive, having aphasia, nausea vomiting, dizziness, increasing left-sided weakness. EMS was called. Patient was brought to ED stroke alert. CT head revealed large posterior fossa ICH. 05/04: Remains sedated, orally intubated on mechanical ventilation. Underwent suboccipital decompression on 05/03. Ventriculostomy in place. ICPs below 10. Drained 150 cc CSF overnight Objective Vital Signs Date Time Temp Pulse Resp B/P Pulse Ox O2 Delivery O2 Flow Rate FiO2 05/04/16 16:00 116 05/04/16 16:00 50 05/04/16 15:33 97 05/04/16 14:28 25 05/04/16 12:00 99.0 140/55 05/03/16 06:00 Mechanical Ventilator Intake and Output 05/03/16 05/03/16 05/04/16 08:00 16:00 00:00 Intake Total 1886 ml 1328 ml Output Total 1440 ml 900 ml 790 ml Balance 446 ml -900 ml 538 ml Result Diagram: 05/04/16 0450 05/04/16 1102 Other Results Laboratory Tests Test 05/03/16 05/03/16 05/03/16 05/04/16 17:08 18:22 20:30 04:50 Blood Gas Puncture Site ART LINE Blood Gas Patient Temperature 98.6 Blood Gas HCO3 23 mmol/L Blood Gas Base Excess -1.1 mmol/L Blood Gas Oxygen Saturation 96 % Arterial Blood pH 7.38 Arterial Blood Partial 40 mmHg Pressure CO2 Arterial Blood Partial 165 mmHg Pressure O2 Arterial Blood Oxygen Content 15.3 Vol % Arterial Blood 2.1 % Carboxyhemoglobin Arterial Blood Methemoglobin 1.1 % Blood Gas Hemoglobin 11.0 G/DL Oxygen Delivery Device VENTILATOR Blood Gas Ventilator Setting AC,28,600,PEEP5 Blood Gas Inspired Oxygen 50 % Serum Osmolality 309 MOSM/KG Sodium Level 140 MEQ/L 146 MEQ/L White Blood Count 21.7 TH/MM3 Red Blood Count 3.57 MIL/MM3 Hemoglobin 10.2 GM/DL Hematocrit 30.8 % Mean Corpuscular Volume 86.2 FL Mean Corpuscular Hemoglobin 28.5 PG Mean Corpuscular Hemoglobin 33.0 % Concent Red Cell Distribution Width 14.7 % Platelet Count 183 TH/MM3 Mean Platelet Volume 9.5 FL Neutrophils (%) (Auto) 87.5 % Lymphocytes (%) (Auto) 7.9 % Monocytes (%) (Auto) 3.8 % Eosinophils (%) (Auto) 0.0 % Basophils (%) (Auto) 0.8 % Neutrophils # (Auto) 19.0 TH/MM3 Lymphocytes # (Auto) 1.7 TH/MM3 Monocytes # (Auto) 0.8 TH/MM3 Eosinophils # (Auto) 0.0 TH/MM3 Basophils # (Auto) 0.2 TH/MM3 CBC Comment DIFF FINAL Differential Comment Potassium Level 3.3 MEQ/L Chloride Level 113 MEQ/L Carbon Dioxide Level 24.1 MEQ/L Anion Gap 9 MEQ/L Blood Urea Nitrogen 16 MG/DL Creatinine 1.23 MG/DL Estimat Glomerular Filtration 44 ML/MIN Rate Random Glucose 185 MG/DL Calcium Level 7.4 MG/DL Protein Corrected Calcium 8.1 MG/DL Total Protein 5.8 GM/DL Test 05/04/16 11:02 Sodium Level 147 MEQ/L Imaging Last [address] 05/03/16 0000 Signed Impressions: Service Date/Time: Tuesday, May 03, 2016 01:18 - CONCLUSION: Large acute posterior fossa hemorrhage. There is also blood in the fourth and third ventricles. Report was called to Dr. Rodrigues at 1:30 AM. Haim Anaya MD Chest X-Ray 05/03/16 0000 Signed Impressions: Service Date/Time: Tuesday, May 03, 2016 01:53 - CONCLUSION: 1. Endotracheal tube tip is about 1.5 cm above the luis antonio. 2. Nasogastric tube courses into the stomach. 3. Lungs reasonably clear. Haim Anaya MD Objective Remarks HEENT/ Neuro: Sedated, orally intubated, Pallor present, no icterus, tongue/ mucosa moist. Pupils 3mm bilaterally constricted, reactive to light. Ventriculostomy in place Neck: No JVD Chest/Pulm: on mech vent, good air entry bilaterally, no wheezing or crackles CVS: S1-S2 regular, no murmur GI/abdomen: soft, nontender, bowel sounds sluggish Extremities: warm bilaterally, no edema Urinary Catheter: Yes Assessment to: Continue A/P Problem List: (1) Hypertension ICD Code: I10 Status: Acute (2) Atrial fibrillation ICD Code: I48.91 Status: Acute (3) Coagulopathy ICD Code: D68.9 Status: Acute (4) Intracranial hemorrhage ICD Code: I62.9 Status: Acute (5) Diabetes ICD Code: E11.9 Status: Acute (6) Respiratory failure with hypoxia ICD Code: J96.91 Status: Acute Assessment and Plan Respiratory failure - intubated for an airway protection - mechanical ventilation - end tidal Co2 - no weaning until neurologically improved Intracranial hemorrhagic stroke - posterior fosa - s/p posterior decompression on 05/04 - 3% NS - EVD - monitor ICP. Keppra for seizure prophylaxis. Neurosurgery following Coagulopathy - reversed Coumadin with Vit K, FFP and Kcentra - Follow INR Hypertension - Cardene gtt, hydralazine/ labetalol prn - SBP goal < 150 DM -Levemir increased from 20 to 30 units [id number], stop insulin drip. High-dose sliding scale insulin. A.Fib - rate controlled - Lopressor i.v. GI - Start tube feeds with Glucerna and advanced to goal as tolerated. ID Leukocytosis noted. We will obtain bruce cultures. On vancomycin perioperatively for prophylaxis. We will initiate empiric antibiotic coverage with IV Zosyn. DVT/GI prophylaxis - TEDs/SCDs/Pepcid Critical Care: The total critical care time was 45 minutes. Time to perform other separately billable procedures was not included in the critical care time. Problem Qualifiers (1) Respiratory failure with hypoxia: Qualified Code: J96.01 - Acute respiratory failure with hypoxia Rj Perea MD May 04, 2016 16:37
[2016-05-04] MEDS ORDERED: LEVOFLOXACIN 750 MG PREMIX INJ 150 ML IV SCH (17:00)
[2016-05-04 17:41] LABS: BACTERIA, URINE RARE /hpf; BLOOD, URINE MOD (NEG); COMMENT (UR) CATH-CULTURE IND; CULTURE IF INDICATED CATH CULTURE IND; GLUCOSE,URINE TRACE mg/dL (NEG); KETONE, URINE NEG (NEG); MUCUS URINE FEW /lpf (OCC); NITRITE,URINE NEG (NEG); PH, URINE 5.5 (5.0-8.5); SQUAMOUS EPITHELIAL CELL URINE 2 /hpf (0-5); URINE COLOR YELLOW (YELLW/STRAW)
[2016-05-04 17:48] LABS: BICARBONATE 24.2 MEQ/L (21.0-32.0)
[2016-05-04 17:51] LABS: AMPHETAMINE, URINE NEG (NEG); BARBITURATES, URINE NEG (NEG); COCAINE, URINE NEG (NEG)
[2016-05-04 18:02] LABS: CALCIUM-PROTEIN CORRECTED 8.1 MG/DL (8.5-10.1)
[2016-05-04 23:10] LABS: BICARBONATE 23.5 MEQ/L (21.0-32.0)
[2016-05-04 23:27] LABS: CALCIUM-PROTEIN CORRECTED 7.9 MG/DL (8.5-10.1)
[2016-05-05] VITALS (19 sets, daily range): BP systolic 148–178; BP diastolic 55–77; PULSE 80–129; RESP 22–25; TEMP 98.8–103.6; O2SAT 97–100
[2016-05-05] MEDS: 3% SALINE INJ 500 ML IV SCH ×2 (01:34→23:49)
[2016-05-05] MEDS: ESMOLOL DRIP INJ PREMIX 250 ML IV SCH ×5 (01:46→22:48)
[2016-05-05] MEDS: niCARdipine INJ 50 MG in SODIUM CHLORID 0.9% 500 ML INJ 480 ML IV SCH ×3 (02:43→23:11)
[2016-05-05] MEDS: PROPOFOL 1000 MG/100 ML INJ 100 ML IV SCH ×4 (03:09→23:23)
[2016-05-05] MEDS: CHLORHEXIDINE GLUCONATE 2 % 1 PACK (2 CLOTHS) TOP SCH (04:00)
[2016-05-05] MEDS: SODIUM CHLOR 0.9% 1000 ML INJ 1,000 ML IV SCH ×2 (04:02→15:57)
[2016-05-05] MEDS: METOPROLOL TARTRATE 5 MG/5 ML VIAL IV PUSH SCH ×4 (04:35→22:12)
[2016-05-05] MEDS: NS + KCL 20 MEQ INJ 1,000 ML IV SCH ×3 (04:35→23:48)
[2016-05-05 05:38] LABS: BLOOD GAS BASE EXCESS -4.2 mmol/L (-2-2); BLOOD GAS CARBOXYHEMOGLOBIN 1.5 % (0-4); BLOOD GAS HCO3 20 mmol/L (22-26); BLOOD GAS O2 HGB SATURATION 96 % (90-100); BLOOD GAS OXYGEN CONTENT 14.8 Vol % (12.0-20.0); BLOOD GAS PCO2 36 mmHg (38-42); BLOOD GAS PO2 136 mmHg (61-120); BLOOD GAS TOTAL HGB 10.7 G/DL (12.0-16.0); CRITICAL VALUE NO; DRAW SITE ART LINE; FIO2 40 %; OXYGEN DEVICE VENTILATOR; STAT NO; TEMP CORR TO 98.6; VENT SETTINGS PRVC/AC
[2016-05-05] MEDS: PANTOPRAZOLE SOD 40 MG DELAYED RELEASE TAB PO SCH (09:00)
[2016-05-05] MEDS: DOCUSATE SODIUM 100 MG/10 ML UDC G-TUBE SCH ×2 (09:21→20:29)
[2016-05-05] MEDS: ARTIFICIAL TEARS OPTH SOLN 15 ML BTL EACH EYE SCH ×3 (09:21→18:00)
[2016-05-05] MEDS: PANTOPRAZOLE SODIUM 40 MG VIAL IVP SCH (09:21)
[2016-05-05] MEDS: INSULIN DETEMIR 100 UNITS/ML VIAL SQ SCH ×2 (09:22→20:29)
[2016-05-05] MEDS: SODIUM CHLORIDE 0.9% FLUSH 5 ML FLUSH IVF SCH ×2 (09:45→20:30)
[2016-05-05] MEDS: INSULIN ASPART SUPPLEMENTAL SCALE SQ SCH ×5 (09:45→23:22)
--- NOTE | 2016-05-05 12:01 | HHI.NSPN ---
(Bri Merchant) Note Status Status: Progress Note (Bri Merchant) Interval History Interval History This is a 65 year old female brought in by EMS as a stroke alert. She has history of multiple ischemic strokes in the past with residual left-sided weakness from the strokes. Patient has a history of Antiphospholipid syndrome and is on anticoagulated Coumadin. Apparently she was sitting down watching TV with her when she became unresponsive, with aphasia, nausea vomiting, dizziness, and increasing left-sided weakness. She is a known tyoe II diabetic and appears to be uncontrolled in ketoacidosis. EMS was called. She was brought to ED stroke alert. CT head revealed a posterior fossa ICH. She underwent emergen posterior fossa craniectomy with evacuation of cerebellar bleed and placement of ventriculostomy drain on 05/03/16. 05/04: well sedated. Pupils equal. EVD at 0 cm H20, ICPs below 10. 05/05: ICPs remains within normal limits, pupils equal, ventriculostomy draining well. (Bri Merchant) Labs, Micro, & Vital Signs Results Date Time Temp Pulse Resp B/P Pulse Ox O2 Delivery O2 Flow Rate FiO2 05/05/16 10:00 85 05/05/16 08:00 50 05/05/16 08:00 98.8 85 22 152/58 99 05/05/16 08:00 85 05/05/16 07:50 99 40 05/05/16 06:00 80 05/05/16 05:50 100 40 05/05/16 05:03 99 40 05/05/16 04:00 99.2 85 22 157/55 99 05/05/16 04:00 50 05/05/16 04:00 85 05/05/16 03:32 100 40 05/05/16 03:32 100 40 05/05/16 02:00 129 05/05/16 00:00 50 05/05/16 00:00 99.9 129 25 159/68 98 05/05/16 00:00 129 05/04/16 23:42 97 40 05/04/16 22:00 117 05/04/16 20:00 117 05/04/16 20:00 50 05/04/16 20:00 100.1 117 25 135/51 98 05/04/16 19:32 97 40 05/04/16 18:54 25 05/04/16 18:00 117 05/04/16 16:00 116 05/04/16 16:00 100.0 116 25 142/52 97 05/04/16 16:00 50 05/04/16 15:33 97 40 05/04/16 14:00 116 05/04/16 13:37 97 40 05/04/16 12:00 50 05/04/16 12:00 99.0 106 25 140/55 98 05/04/16 12:00 106 05/05/16 07:00 Intake Total 6501 ml Output Total 1974 ml Balance 4527 ml Constitutional Vital Signs Date Time Temp Pulse Resp B/P Pulse Ox O2 Delivery O2 Flow Rate FiO2 05/05/16 10:00 85 05/05/16 08:00 50 05/05/16 08:00 98.8 85 22 152/58 99 05/05/16 08:00 85 05/05/16 07:50 99 40 05/05/16 06:00 80 05/05/16 05:50 100 40 05/05/16 05:03 99 40 05/05/16 04:00 99.2 85 22 157/55 99 05/05/16 04:00 50 05/05/16 04:00 85 05/05/16 03:32 100 40 05/05/16 03:32 100 40 05/05/16 02:00 129 05/05/16 00:00 50 05/05/16 00:00 99.9 129 25 159/68 98 05/05/16 00:00 129 05/04/16 23:42 97 40 05/04/16 22:00 117 05/04/16 20:00 117 05/04/16 20:00 50 05/04/16 20:00 100.1 117 25 135/51 98 05/04/16 19:32 97 40 05/04/16 18:54 25 05/04/16 18:00 117 05/04/16 16:00 116 05/04/16 16:00 100.0 116 25 142/52 97 05/04/16 16:00 50 05/04/16 15:33 97 40 05/04/16 14:00 116 05/04/16 13:37 97 40 05/04/16 12:00 50 05/04/16 12:00 99.0 106 25 140/55 98 05/04/16 12:00 106 05/05/16 07:00 Intake Total 6501 ml Output Total 1974 ml Balance 4527 ml (Bri Merchant) Review of Systems/Exam Exam Ms. Spann is intubated and well sedated. Localizes to painful stimulii in LE' s. Right EVD in place at 0 cm H20, draining bloody CSF. ICPs= 8 Wound with clean dressing Cranial Nerves: Pupils 3 mm equal, round, reactive to light. Eyes appear conjugated. Face musculature appeared symmetrical at rest. Sensorimotor muscle tone and bulk are normal. Withdraws 2/5 in LE's to local stimuli Reflexes: Plantars silent b/l Cerebellar: Examination cannot be adequately assessed due to the patient's neurological condition. (Bri Merchant) Medications Current Medications Current Medications Medications (Trade) Dose Ordered Sig/Michelle Route PRN Reason Start Time Stop Time Status Last Admin Dose Admin Sodium Chloride (NS 1000 ml Inj) 1,000 ml @ 84 mls/hr [id number] IV 05/03/16 04:22 05/04/16 04:12 Midazolam HCl (Versed Inj) 2 mg Q1H PRN IV SEDATION 05/03/16 04:30 Artificial Tears (Tears Naturale Opth Soln) 1 drop TID EACH EYE 05/03/16 09:00 05/05/16 09:21 Ondansetron HCl (Zofran Inj) 4 mg Q6H PRN IV NAUSEA OR VOMITING 05/03/16 04:30 Metoclopramide HCl (Reglan Inj) 10 mg Q6H PRN IV NAUSEA OR VOMITING 05/03/16 04:30 Docusate Sodium (Colace Liq) 100 mg Q12H G-TUBE 05/03/16 09:00 05/05/16 09:21 Miscellaneous Information 1 Q361D XX 05/03/16 04:30 05/03/16 04:30 Chlorhexidine Gluconate (Chlorhexidine 2% Cloth) 3 pack Taper DAILY@04 TOP 05/04/16 04:00 04/30/17 03:59 05/05/16 04:00 Chlorhexidine Gluconate 3 pack 3 pack UNSCH PRN TOP HYGIENIC CARE 05/03/16 04:30 Propofol (Diprivan 1000 Mg/100ml Inj) 100 ml @ 0 mls/hr TITRATE IV 05/03/16 04:30 05/05/16 10:31 Metoprolol Tartrate (Lopressor Inj) 2.5 mg Q6H IV PUSH 05/03/16 05:00 05/04/16 22:19 Labetalol HCl 20 mg 20 mg Q2H PRN IVS SBP greater than 160mm Hg 05/03/16 11:00 05/03/16 10:54 Potassium Chloride/Sodium Chloride (NS + KCl 20 Meq Inj) 1,000 ml @ 100 mls/hr Q10H IV 05/03/16 12:25 05/05/16 04:35 IV Flush (NS Flush) 2 ml UNSCH PRN IVF FLUSH AFTER USING IV ACCESS 05/03/16 12:30 IV Flush 2 ml 2 ml BID IVF 05/03/16 21:00 05/05/16 09:45 Levetriacetam/ Sodium Chloride (Keppra Inj/NS Inj) 105 ml @ 400 mls/hr Q12H IV 05/03/16 13:00 05/04/16 23:14 Bisacodyl (Dulcolax Supp) 10 mg DAILY PRN [place] CONSTIPATION 05/03/16 12:30 Pantoprazole Sodium (Protonix) 40 mg DAILY PO 05/04/16 09:00 Pantoprazole Sodium (Protonix Inj) 40 mg DAILY IVP 05/04/16 09:00 05/05/16 09:21 Calcium Gluconate 1 gm 1 gm UNSCH PRN IV SEE LABEL COMMENTS 05/03/16 12:30 Potassium Chloride 100 ml @ 50 mls/hr UNSCH PRN IV POTASSIUM LESS THAN 4 05/03/16 12:30 05/04/16 06:56 Magnesium Sulfate/ Sodium Chloride (Magnesium Sulfate Inj/NS Inj) 108 ml @ 108 mls/hr UNSCH PRN IV MAGNESIUM LESS THAN 2 05/03/16 12:30 Acetaminophen/ Hydrocodone Bitart (Jackson 10-325 Mg) 1 tab Q4H PRN PO PAIN SCALE 1 TO 5 05/03/16 12:30 Acetaminophen/ Hydrocodone Bitart (Jackson 10-325 Mg) 2 tab Q4H PRN PO PAIN SCALE 6 TO 10 05/03/16 12:30 05/05/16 04:34 Morphine Sulfate (Morphine Inj) 2 mg Q2H PRN IV PUSH PAIN SCALE 1 TO 6 05/03/16 12:30 Morphine Sulfate (Morphine Inj) 4 mg Q2H PRN IV PUSH PAIN SCALE 7 TO 10 05/03/16 12:30 05/04/16 18:49 Acetaminophen 650 mg 650 mg Q4H PRN PO TEMPERATURE > 101.5 F 05/03/16 12:30 Nicardipine HCl/ Sodium Chloride (Cardene Inj/NS 500 ml Inj) 500 ml @ 0 mls/hr TITRATE IV 05/03/16 18:17 05/05/16 02:43 Insulin Detemir 30 units 30 units Q12HR SQ 05/04/16 10:00 05/05/16 09:22 Potassium Chloride 100 ml @ 50 mls/hr Q2H PRN IV For Potassium 2.8 - 3.2 mEq/L 05/04/16 08:45 Potassium Chloride (KCl 20 Meq Premix Inj) 100 ml @ 50 mls/hr Q2H PRN IV For Potassium 2.8 - 3.2 mEq/L 05/04/16 08:45 Potassium Chloride 40 meq 40 meq UNSCH PRN PO/TUBE For Potassium 3.3 - 3.5 mEq/L 05/04/16 08:45 Potassium Chloride 100 ml @ 25 mls/hr UNSCH PRN IV For Potassium 3.3 - 3.5 mEq/L 05/04/16 08:45 Potassium Chloride 100 ml @ 50 mls/hr Q2H PRN IV For Potassium 3.3 - 3.5 mEq/L 05/04/16 08:45 Magnesium Sulfate/ Sodium Chloride (Magnesium Sulfate Inj/NS Inj) 100 ml @ 50 mls/hr UNSCH PRN IV For Magnesium 0.9 - 1.1 mg/dL 05/04/16 08:45 Magnesium Oxide 800 mg 800 mg UNSCH PRN PO For Magnesium 1.2 - 1.6 mg/dL 05/04/16 08:45 Magnesium Sulfate/ Sodium Chloride (Magnesium Sulfate Inj/NS Inj) 100 ml @ 50 mls/hr UNSCH PRN IV For Magnesium 1.2 - 1.6 mg/dL 05/04/16 08:45 Potassium Phosphate 2000 mg 2,000 mg Q4H PRN PO For Phosphorus < 2.5 mg/dL 05/04/16 08:45 Sodium Phosphate/ Sodium Chloride (Sodium Phosphate Inj/NS 250 ml Inj) 250 ml @ 42 mls/hr UNSCH PRN IV For Phosphorus < 2.5 mg/dL 05/04/16 08:45 Potassium Chloride (KCl 40 Meq/30 ml Liq) 40 meq UNSCH PRN PO/TUBE SEE LABEL COMMENTS 05/04/16 08:45 Potassium Phosphate 2000 mg 2,000 mg UNSCH PRN PO/TUBE SEE LABEL COMMENTS 05/04/16 08:45 Potassium Phosphate/Sodium Chloride (Potassium Phosphate Inj/NS 250 ml Inj) 260 ml @ 42 mls/hr UNSCH PRN IV SEE LABEL COMMENTS 05/04/16 08:45 Insulin Aspart (NovoLOG SUPPLEMENTAL SCALE) 1 Q4HR SQ 05/04/16 12:00 05/05/16 09:45 Dextrose (D50w (Vial) Inj) 25 ml UNSCH PRN IV HYPOGLYCEMIA-SEE COMMENTS 05/04/16 08:45 Glucagon 1 mg 1 mg UNSCH PRN IM/SQ HYPOGLYCEMIA-SEE COMMENTS 05/04/16 08:45 Sodium Chloride 500 ml @ 10 mls/hr Q24H IV 05/05/16 01:00 05/05/16 01:34 Levofloxacin/ Dextrose (Levaquin 750 Mg Premix Inj) 150 ml @ 100 mls/hr Q48H IV 05/06/16 17:00 (Bri Merchant) Medical Decision Making MDM Remarks 65 y/o female with cerebellar bleed coagulopathy with supratherapeutic INR, s/p Vitamin K and KCentra history of antiphospholipid antibody (Bri Merchant) Plan Plan Remarks cont ventriculostomy draining at 0 cm H20 with ICP monitoring cont hyperosmotic tx with 3% NS cont keep well sedated today serial neuro checks no anticoagulants at this time due to ICH, SCDs and TEDs for DVT prophylaxis repeat CT Brain tomorrow am, if stable start weaning sedation down dw nursing, dw at bedside (Bri Merchant) Attending Statement The exam, history, and the medical decision-making described in the above note were completed with the assistance of the mid-level provider. I reviewed and agree with the findings presented. I attest that I had a [id number] encounter with the patient on the same day, and personally performed and documented my assessment and findings in the medical record. (Oumar Chavez MD) Bri Merchant May 05, 2016 12:01 Oumar Chavez MD May 09, 2016 18:04
[2016-05-05] MEDS: levETIRAcetam INJ 500 MG in SODIUM CHLORIDE 0.9% INJ 100 ML IV SCH ×2 (13:05→23:48)
--- NOTE | 2016-05-05 16:13 | HHI.CCPN ---
Subjective Remarks/Hospital Course 05/03: 65 years old female was brought in by EMS for stroke alert. Patient has history of multiple strokes in the past. Patient has residual left-sided weakness from the strokes. Patient has an Antiphospholipid syndrome and is on Coumadin. Patient was sitting down watching TV with her then patient started became more unresponsive, having aphasia, nausea vomiting, dizziness, increasing left-sided weakness. EMS was called. Patient was brought to ED stroke alert. CT head revealed large posterior fossa ICH. 05/04: Remains sedated, orally intubated on mechanical ventilation. Underwent suboccipital decompression on 05/03. Ventriculostomy in place. ICPs below 10. Drained 150 cc CSF overnight 05/05: acutely this afternoon, her SBP increased from 150s to 200s. neuro exam unchanged, remains sedated on propofol without sedation vacation today per nsgy. pupillary exam unchanged, 2mm equal, reactive. required labetalol 60mg iv , esmolol 150mcg/kg/min, and cardene 15mg/hr to bring back down to goal SBP 150s. EVD still at 0 per nsgy. ICP in lateral ventricles 1. Objective Vital Signs Date Time Temp Pulse Resp B/P Pulse Ox O2 Delivery O2 Flow Rate FiO2 05/05/16 12:00 98 40 05/05/16 12:00 106 05/05/16 12:00 100.0 22 178/77 05/03/16 06:00 Mechanical Ventilator Intake and Output 05/04/16 05/04/16 05/05/16 08:00 16:00 00:00 Intake Total 1725 ml 2114 ml 2637 ml Output Total 650 ml 534 ml 780 ml Balance 1075 ml 1580 ml 1857 ml Result Diagram: 05/04/16 0450 05/05/16 0450 Other Results Laboratory Tests Test 05/05/16 05:28 Blood Gas Puncture Site ART LINE Blood Gas Patient Temperature 98.6 Blood Gas HCO3 20 mmol/L (22-26) Blood Gas Base Excess -4.2 mmol/L (-2-2) Blood Gas Oxygen Saturation 96 % (90-100) Arterial Blood pH 7.37 (7.380-7.420) Arterial Blood Partial 36 mmHg (38-42) Pressure CO2 Arterial Blood Partial 136 mmHg Pressure O2 (61-120) Arterial Blood Oxygen Content 14.8 Vol % (12.0-20.0) Arterial Blood 1.5 % (0-4) Carboxyhemoglobin Arterial Blood Methemoglobin 1.0 % (0-2) Blood Gas Hemoglobin 10.7 G/DL (12.0-16.0) Oxygen Delivery Device VENTILATOR Blood Gas Ventilator Setting PRVC/AC Blood Gas Inspired Oxygen 40 % Imaging Last [address] 05/03/16 0000 Signed Impressions: Service Date/Time: Tuesday, May 03, 2016 01:18 - CONCLUSION: Large acute posterior fossa hemorrhage. There is also blood in the fourth and third ventricles. Report was called to Dr. Rodrigues at 1:30 AM. Haim Anaya MD Chest X-Ray 05/03/16 0000 Signed Impressions: Service Date/Time: Tuesday, May 03, 2016 01:53 - CONCLUSION: 1. Endotracheal tube tip is about 1.5 cm above the luis antonio. 2. Nasogastric tube courses into the stomach. 3. Lungs reasonably clear. Haim Anaya MD Objective Remarks HEENT/ Neuro: Sedated, orally intubated, Pallor present, no icterus, tongue/ mucosa moist. Pupils 2mm bilaterally constricted, reactive to light. Ventriculostomy in place Neck: No JVD Chest/Pulm: on mech vent, good air entry bilaterally, no wheezing or crackles CVS: S1-S2 regular, no murmur GI/abdomen: soft, nontender, bowel sounds sluggish Extremities: warm bilaterally, no edema A/P Problem List: (1) Hypertension ICD Code: I10 Status: Acute (2) Atrial fibrillation ICD Code: I48.91 Status: Acute (3) Coagulopathy ICD Code: D68.9 Status: Acute (4) Intracranial hemorrhage ICD Code: I62.9 Status: Acute (5) Diabetes ICD Code: E11.9 Status: Acute (6) Respiratory failure with hypoxia ICD Code: J96.91 Status: Acute Assessment and Plan Acute hypoxic and hypercarbic Respiratory failure - intubated for airway protection - mechanical ventilation - end tidal Co2 - no weaning until neurologically improved Intracranial hemorrhagic stroke - posterior fosa - s/p posterior decompression on 05/04 - 3% NS - EVD - monitor ICP. Keppra for seizure prophylaxis. Neurosurgery following - cardene and esmolol for goal SBP < 150 - new acute hypertension is very concerning for either re-bleed or malignant cerebral edema in the posterior fossa. will order stat repeat head CT. already on 3%. if significant cerebral edema despite decompression, will add mannitol. nsgy aware. evd to remain at 0 for now per nsgy. Coagulopathy - reversed Coumadin with Vit K, FFP and Kcentra - Follow INR Hypertension - Cardene gtt, hydralazine/ labetalol prn, esmolol gtt - SBP goal < 150 DM -Levemir 30 units [id number]. High-dose sliding scale insulin. A.Fib - rate controlled - Lopressor i.v. GI - tube feeds with Glucerna and advanced to goal as tolerated. ID Leukocytosis noted. bruce cultured. on Vanc/Zosyn. DVT/GI prophylaxis - TEDs/SCDs/Pepcid Critical Care: The total critical care time was 57 minutes. Time to perform other separately billable procedures was not included in the critical care time. Problem Qualifiers (1) Respiratory failure with hypoxia: Qualified Code: J96.01 - Acute respiratory failure with hypoxia Rancho Arrieta MD May 05, 2016 16:13
--- NOTE | 2016-05-05 17:20 | RADRPT ---
EXAM DATE/TIME: 05/05/2016 16:49 [facility] COMPARISON: CT BRAIN W/O CONTRAST, May 03, 2016, 1:18. INDICATIONS : Recheck cerebral bleed. RADIATION DOSE: 57.83 CTDIvol (mGy) MEDICAL HISTORY : Cardiovascular disease. Cerebrovascular disease. Hypertension.Lupus. SURGICAL HISTORY : Hysterectomy. Craniotomy. ENCOUNTER: Subsequent ACUITY: 2 days PAIN SCALE: Non-responsive LOCATION: cranial TECHNIQUE: Multiple contiguous axial images were obtained of the head. Using automated exposure control and adj ustment of the mA and/or kV according to patient size, radiation dose was kept as low as reasonably a chievable to obtain optimal diagnostic quality images. FINDINGS: There are postoperative changes following suboccipital craniectomy. The large hematoma in the left ce rebellar hemisphere has been evacuated. Ventriculostomy is in place with its tip in the frontal horn of right lateral ventricle. Blood is identified in the fourth ventricle aqueduct and third ventricle. There are no signs of herniation. CONCLUSION: 1. Expected postoperative changes following evacuation of hematoma Michael Mehta MD on May 05, 2016 at 17:17 Board Certified Radiologist. This report was verified electronically.
[2016-05-05] MEDS: ACETAMINOPHEN 325 MG TAB PO PRN (23:23)
[2016-05-06] VITALS (19 sets, daily range): BP systolic 154–171; BP diastolic 60–71; PULSE 82–116; RESP 22–25; TEMP 100.4–103.2; O2SAT 96–99
[2016-05-06] MEDS: ESMOLOL DRIP INJ PREMIX 250 ML IV SCH ×4 (00:54→11:36)
[2016-05-06] MEDS: niCARdipine INJ 50 MG in SODIUM CHLORID 0.9% 500 ML INJ 480 ML IV SCH ×4 (02:23→20:01)
[2016-05-06] MEDS: SODIUM CHLOR 0.9% 1000 ML INJ 1,000 ML IV SCH (03:04)
[2016-05-06] MEDS: CHLORHEXIDINE GLUCONATE 2 % 1 PACK (2 CLOTHS) TOP SCH (03:04)
[2016-05-06] MEDS: INSULIN ASPART SUPPLEMENTAL SCALE SQ SCH ×4 (03:26→20:35)
[2016-05-06] MEDS: PROPOFOL 1000 MG/100 ML INJ 100 ML IV SCH ×4 (03:26→20:36)
[2016-05-06] MEDS: METOPROLOL TARTRATE 5 MG/5 ML VIAL IV PUSH SCH (03:26)
[2016-05-06] MEDS: ACETAMINOPHEN 325 MG TAB PO PRN ×2 (03:47→20:35)
[2016-05-06 05:23] LABS: HEMATOCRIT 27.2 % (35.0-46.0); MEAN CELL VOLUME 88.5 FL (80.0-100.0); MEAN CORPUSCULAR HEMOGLOBIN 28.9 PG (27.0-34.0); MEAN CORPUSCULAR HGB CONC 32.7 % (32.0-36.0); PLATELET COUNT 214 TH/MM3 (150-450); RED BLOOD COUNT 3.07 MIL/MM3 (4.00-5.30); REVIEW FLAG FINAL; WHITE BLOOD COUNT 15.8 TH/MM3 (4.0-11.0)
[2016-05-06 05:46] LABS: POTASSIUM 4.3 MEQ/L (3.5-5.1)
[2016-05-06 08:33] LABS: BLOOD GAS BASE EXCESS -4.8 mmol/L (-2-2); BLOOD GAS CARBOXYHEMOGLOBIN 1.5 % (0-4); BLOOD GAS HCO3 19 mmol/L (22-26); BLOOD GAS METHEMOGLOBIN 1.1 % (0-2); BLOOD GAS O2 HGB SATURATION 95 % (90-100); BLOOD GAS OXYGEN CONTENT 13.5 Vol % (12.0-20.0); BLOOD GAS PCO2 31 mmHg (38-42); BLOOD GAS PO2 103 mmHg (61-120); CRITICAL VALUE NO; OXYGEN DEVICE VENTILATOR; TEMP CORR TO 98.6
[2016-05-06 08:34] LABS: DRAW SITE ART LINE; FIO2 40 %; STAT NO; VENT SETTINGS PRVC/AC
[2016-05-06] MEDS: DOCUSATE SODIUM 100 MG/10 ML UDC G-TUBE SCH (08:48)
[2016-05-06] MEDS: INSULIN DETEMIR 100 UNITS/ML VIAL SQ SCH ×2 (08:49→20:35)
[2016-05-06] MEDS: SODIUM CHLORIDE 0.9% FLUSH 5 ML FLUSH IVF SCH ×2 (08:49→20:35)
[2016-05-06] MEDS: PANTOPRAZOLE SOD 40 MG DELAYED RELEASE TAB PO SCH (08:50)
[2016-05-06] MEDS: PANTOPRAZOLE SODIUM 40 MG VIAL IVP SCH (08:50)
[2016-05-06] MEDS: ARTIFICIAL TEARS OPTH SOLN 15 ML BTL EACH EYE SCH ×3 (08:51→16:48)
--- NOTE | 2016-05-06 09:15 | HHI.NSPN ---
(Bri Merchant) Note Status Status: Progress Note (Oumar Chavez MD) Interval History Interval History This is a 65 year old female brought in by EMS as a stroke alert. She has history of multiple ischemic strokes in the past with residual left-sided weakness from the strokes. Patient has a history of Antiphospholipid syndrome and is on anticoagulated Coumadin. Apparently she was sitting down watching TV with her when she became unresponsive, with aphasia, nausea vomiting, dizziness, and increasing left-sided weakness. She is a known tyoe II diabetic and appears to be uncontrolled in ketoacidosis. EMS was called. She was brought to ED stroke alert. CT head revealed a posterior fossa ICH. She underwent emergen posterior fossa craniectomy with evacuation of cerebellar bleed and placement of ventriculostomy drain on 05/03/16. 05/04: well sedated. Pupils equal. EVD at 0 cm H20, ICPs below 10. 05/05: ICPs remains within normal limits, pupils equal, ventriculostomy draining well. 05/06: hypertensive, BP was up in the 200's systolic yesterday, on cardene. Currently running 150s. ICPs normal, EVD draining well. serum sodium 148. well sedated also for bp control. (Bri Merchant) Labs, Micro, & Vital Signs Results Date Time Temp Pulse Resp B/P Pulse Ox O2 Delivery O2 Flow Rate FiO2 05/06/16 08:37 97 40 05/06/16 08:07 97 40 05/06/16 06:00 88 05/06/16 04:00 40 05/06/16 04:00 101.3 88 22 156/61 98 05/06/16 04:00 88 05/06/16 03:09 98 40 05/06/16 02:00 82 05/06/16 00:00 83 05/06/16 00:00 102.3 83 23 154/63 98 05/06/16 00:00 40 05/05/16 23:18 98 40 05/05/16 22:00 99 05/05/16 20:00 40 05/05/16 20:00 91 05/05/16 20:00 103.0 89 23 148/59 98 05/05/16 19:22 97 40 05/05/16 18:00 125 05/05/16 18:00 103.6 108 22 170/66 97 05/05/16 17:23 98 40 05/05/16 16:30 100 100 05/05/16 16:00 116 05/05/16 16:00 50 05/05/16 12:00 98 40 05/05/16 12:00 106 05/05/16 12:00 100.0 106 22 178/77 99 05/05/16 12:00 50 05/05/16 10:00 85 05/06/16 07:00 Intake Total 8254 ml Output Total 3620 ml Balance 4634 ml Constitutional Vital Signs Date Time Temp Pulse Resp B/P Pulse Ox O2 Delivery O2 Flow Rate FiO2 05/06/16 08:37 97 40 05/06/16 08:07 97 40 05/06/16 06:00 88 05/06/16 04:00 40 05/06/16 04:00 101.3 88 22 156/61 98 05/06/16 04:00 88 05/06/16 03:09 98 40 05/06/16 02:00 82 05/06/16 00:00 83 05/06/16 00:00 102.3 83 23 154/63 98 05/06/16 00:00 40 05/05/16 23:18 98 40 05/05/16 22:00 99 05/05/16 20:00 40 05/05/16 20:00 91 05/05/16 20:00 103.0 89 23 148/59 98 05/05/16 19:22 97 40 05/05/16 18:00 125 05/05/16 18:00 103.6 108 22 170/66 97 05/05/16 17:23 98 40 05/05/16 16:30 100 100 05/05/16 16:00 116 05/05/16 16:00 50 05/05/16 12:00 98 40 05/05/16 12:00 106 05/05/16 12:00 100.0 106 22 178/77 99 05/05/16 12:00 50 05/05/16 10:00 85 05/06/16 07:00 Intake Total 8254 ml Output Total 3620 ml Balance 4634 ml (Bri Merchant) Review of Systems/Exam Exam Ms. Spann is intubated and well sedated. Right EVD in place at 0 cm H20, CSF xanthochromic. ICPs= 8 Wound with clean dressing Cranial Nerves: Pupils equal, round. Continuous side to side eye rolling seen, no tonic/clonic activities. Sensorimotor: muscle tone and bulk are normal. 2/5 withdrawals in LE's, left > right Reflexes: Plantars silent b/l Cerebellar: unable to assess (Bri Merchant) Medications Current Medications Current Medications Medications (Trade) Dose Ordered Sig/Michelle Route PRN Reason Start Time Stop Time Status Last Admin Dose Admin Artificial Tears (Tears Naturale Opth Soln) 1 drop TID EACH EYE 05/03/16 09:00 05/06/16 08:51 Ondansetron HCl (Zofran Inj) 4 mg Q6H PRN IV NAUSEA OR VOMITING 05/03/16 04:30 Miscellaneous Information 1 Q361D XX 05/03/16 04:30 05/03/16 04:30 Chlorhexidine Gluconate (Chlorhexidine 2% Cloth) 3 pack Taper DAILY@04 TOP 05/04/16 04:00 04/30/17 03:59 05/06/16 03:04 Chlorhexidine Gluconate 3 pack 3 pack UNSCH PRN TOP HYGIENIC CARE 05/03/16 04:30 Propofol (Diprivan 1000 Mg/100ml Inj) 100 ml @ 0 mls/hr TITRATE IV 05/03/16 04:30 05/06/16 08:49 IV Flush (NS Flush) 2 ml UNSCH PRN IVF FLUSH AFTER USING IV ACCESS 05/03/16 12:30 IV Flush 2 ml 2 ml BID IVF 05/03/16 21:00 05/06/16 08:49 Levetriacetam/ Sodium Chloride (Keppra Inj/NS Inj) 105 ml @ 400 mls/hr Q12H IV 05/03/16 13:00 05/05/16 23:48 Calcium Gluconate 1 gm 1 gm UNSCH PRN IV SEE LABEL COMMENTS 05/03/16 12:30 Potassium Chloride 100 ml @ 50 mls/hr UNSCH PRN IV POTASSIUM LESS THAN 4 05/03/16 12:30 05/04/16 06:56 Magnesium Sulfate/ Sodium Chloride (Magnesium Sulfate Inj/NS Inj) 108 ml @ 108 mls/hr UNSCH PRN IV MAGNESIUM LESS THAN 2 05/03/16 12:30 Acetaminophen 650 mg 650 mg Q4H PRN PO TEMPERATURE > 101.5 F 05/03/16 12:30 05/06/16 03:47 Nicardipine HCl 50 mg/Sodium Chloride 500 ml @ 0 mls/hr TITRATE IV 05/03/16 18:17 05/06/16 09:09 Potassium Chloride 100 ml @ 50 mls/hr Q2H PRN IV For Potassium 2.8 - 3.2 mEq/L 05/04/16 08:45 Potassium Chloride (KCl 20 Meq Premix Inj) 100 ml @ 50 mls/hr Q2H PRN IV For Potassium 2.8 - 3.2 mEq/L 05/04/16 08:45 Potassium Chloride 40 meq 40 meq UNSCH PRN PO/TUBE For Potassium 3.3 - 3.5 mEq/L 05/04/16 08:45 Potassium Chloride 100 ml @ 25 mls/hr UNSCH PRN IV For Potassium 3.3 - 3.5 mEq/L 05/04/16 08:45 Potassium Chloride 100 ml @ 50 mls/hr Q2H PRN IV For Potassium 3.3 - 3.5 mEq/L 05/04/16 08:45 Magnesium Sulfate/ Sodium Chloride (Magnesium Sulfate Inj/NS Inj) 100 ml @ 50 mls/hr UNSCH PRN IV For Magnesium 0.9 - 1.1 mg/dL 05/04/16 08:45 Magnesium Oxide 800 mg 800 mg UNSCH PRN PO For Magnesium 1.2 - 1.6 mg/dL 05/04/16 08:45 Magnesium Sulfate/ Sodium Chloride (Magnesium Sulfate Inj/NS Inj) 100 ml @ 50 mls/hr UNSCH PRN IV For Magnesium 1.2 - 1.6 mg/dL 05/04/16 08:45 Potassium Phosphate 2000 mg 2,000 mg Q4H PRN PO For Phosphorus < 2.5 mg/dL 05/04/16 08:45 Sodium Phosphate/ Sodium Chloride (Sodium Phosphate Inj/NS 250 ml Inj) 250 ml @ 42 mls/hr UNSCH PRN IV For Phosphorus < 2.5 mg/dL 05/04/16 08:45 Potassium Chloride (KCl 40 Meq/30 ml Liq) 40 meq UNSCH PRN PO/TUBE SEE LABEL COMMENTS 05/04/16 08:45 Potassium Phosphate 2000 mg 2,000 mg UNSCH PRN PO/TUBE SEE LABEL COMMENTS 05/04/16 08:45 Potassium Phosphate/Sodium Chloride (Potassium Phosphate Inj/NS 250 ml Inj) 260 ml @ 42 mls/hr UNSCH PRN IV SEE LABEL COMMENTS 05/04/16 08:45 Insulin Aspart (NovoLOG SUPPLEMENTAL SCALE) 1 Q4HR SQ 05/04/16 12:00 05/06/16 09:06 Dextrose (D50w (Vial) Inj) 25 ml UNSCH PRN IV HYPOGLYCEMIA-SEE COMMENTS 05/04/16 08:45 Glucagon 1 mg 1 mg UNSCH PRN IM/SQ HYPOGLYCEMIA-SEE COMMENTS 05/04/16 08:45 Sodium Chloride 500 ml @ 10 mls/hr Q24H IV 05/05/16 01:00 05/05/16 23:49 Levofloxacin/ Dextrose (Levaquin 750 Mg Premix Inj) 150 ml @ 100 mls/hr Q48H IV 05/06/16 17:00 Insulin Detemir (Levemir Inj) 50 units Q12HR SQ 05/06/16 21:00 UNV Labetalol HCl (Trandate Inj) 20 mg Q1H PRN IVS SBP greater than 160mm Hg 05/06/16 10:00 UNV Metoprolol Tartrate (Lopressor Inj) 5 mg Q4H PRN IV PUSH HR > 100 05/06/16 11:00 UNV Bisacodyl (Dulcolax Supp) 10 mg DAILY RECTAL 05/07/16 09:55 UNV Polyethylene Glycol (Miralax) 17 gm BID PO 05/06/16 09:55 UNV Lactulose (Lactulose Liq) 30 ml BID PO 05/06/16 09:55 UNV Senna/Docusate Sodium (Meaghan-Colace) 1 tab BID PO 05/06/16 10:00 UNV Famotidine (Pepcid Liq) 20 mg BID NG 05/06/16 21:00 UNV Labetalol HCl (Trandate) 300 mg Q8HR PO 05/06/16 10:00 UNV Hydralazine HCl 10 mg 10 mg Q30M PRN IV PUSH sbp > 150 05/06/16 10:00 UNV Cefepime HCl 2000 mg/Sodium Chloride 100 ml @ 200 mls/hr Q8H IV 05/06/16 10:00 UNV Metronidazole (Flagyl 500 Mg Inj) 100 ml @ 100 mls/hr Q6H IV 05/06/16 10:00 UNV ([employer]ri Merchant) Medical Decision Making MDM Remarks 65 y/o female with cerebellar bleed coagulopathy with supratherapeutic INR, s/p Vitamin K and KCentra history of antiphospholipid antibody new eye rolling, r/o seizures (Bri Merchant) Plan Plan Remarks reviewed f/u CT Brain, stable findings, cont ventriculostomy draining at 0 cm H20 with ICP monitoring cont hyperosmotic tx with 3% NS clear to start sedation wean as tolerated serial neuro checks no anticoagulants at this time due to ICH, SCDs and TEDs for DVT prophylaxis EEG to asses for sz, cont keppra 500 bid dw nursing, dw at bedside (Bri Merchant) Attending Statement The exam, history, and the medical decision-making described in the above note were completed with the assistance of the mid-level provider. I reviewed and agree with the findings presented. I attest that I had a [id number] encounter with the patient on the same day, and personally performed and documented my assessment and findings in the medical record. (Oumar Chavez MD) Bri Merchant May 06, 2016 09:15 Oumar Chavez MD May 09, 2016 18:07
[2016-05-06] MEDS: POLYETHYLENE GLYCOL 17 GM PKG PO SCH ×2 (09:55→20:36)
[2016-05-06] MEDS: DOCUSATE SODIUM 50 MG/SENNA 8.6 MG TAB PO SCH ×2 (10:00→20:36)
[2016-05-06] MEDS ORDERED: CEFEPIME INJ 2,000 MG in SODIUM CHLORIDE 0.9% INJ 100 ML IV SCH (10:00)
--- NOTE | 2016-05-06 10:21 | HHI.CCPN ---
Subjective Remarks/Hospital Course 05/03: 65 years old female was brought in by EMS for stroke alert. Patient has history of multiple strokes in the past. Patient has residual left-sided weakness from the strokes. Patient has an Antiphospholipid syndrome and is on Coumadin. Patient was sitting down watching TV with her then patient started became more unresponsive, having aphasia, nausea vomiting, dizziness, increasing left-sided weakness. EMS was called. Patient was brought to ED stroke alert. CT head revealed large posterior fossa ICH. 05/04: Remains sedated, orally intubated on mechanical ventilation. Underwent suboccipital decompression on 05/03. Ventriculostomy in place. ICPs below 10. Drained 150 cc CSF overnight 05/05: acutely this afternoon, her SBP increased from 150s to 200s. neuro exam unchanged, remains sedated on propofol without sedation vacation today per nsgy. pupillary exam unchanged, 2mm equal, reactive. required labetalol 60mg iv , esmolol 150mcg/kg/min, and cardene 15mg/hr to bring back down to goal SBP 150s. EVD still at 0 per nsgy. ICP in lateral ventricles 1. 2: severely hypertensive and febrile. re-cultured overnight. sputum growing GNR. Objective Vital Signs Date Time Temp Pulse Resp B/P Pulse Ox O2 Delivery O2 Flow Rate FiO2 05/06/16 08:37 97 40 05/06/16 06:00 88 05/06/16 04:00 101.3 22 156/61 05/03/16 06:00 Mechanical Ventilator Intake and Output 05/05/16 05/05/16 05/06/16 08:00 16:00 00:00 Intake Total 1750 ml 2533 ml 2640 ml Output Total 660 ml 1015 ml 1353 ml Balance 1090 ml 1518 ml 1287 ml Result Diagram: 05/06/16 0505 05/06/16 0505 Other Results Laboratory Tests Test 05/06/16 08:20 Blood Gas Puncture Site ART LINE Blood Gas Patient Temperature 98.6 Blood Gas HCO3 19 mmol/L (22-26) Blood Gas Base Excess -4.8 mmol/L (-2-2) Blood Gas Oxygen Saturation 95 % (90-100) Arterial Blood pH 7.41 (7.380-7.420) Arterial Blood Partial 31 mmHg (38-42) Pressure CO2 Arterial Blood Partial 103 mmHg Pressure O2 (61-120) Arterial Blood Oxygen Content 13.5 Vol % (12.0-20.0) Arterial Blood 1.5 % (0-4) Carboxyhemoglobin Arterial Blood Methemoglobin 1.1 % (0-2) Blood Gas Hemoglobin 10.0 G/DL (12.0-16.0) Oxygen Delivery Device VENTILATOR Blood Gas Ventilator Setting PRVC/AC Blood Gas Inspired Oxygen 40 % Imaging Last [address] 05/03/16 0000 Signed Impressions: Service Date/Time: Tuesday, May 03, 2016 01:18 - CONCLUSION: Large acute posterior fossa hemorrhage. There is also blood in the fourth and third ventricles. Report was called to Dr. Rodrigues at 1:30 AM. Haim Anaya MD Chest X-Ray 05/03/16 Signed Impressions: Service Date/Time: Tuesday, May 03, 2016 01:53 - CONCLUSION: 1. Endotracheal tube tip is about 1.5 cm above the luis antonio. 2. Nasogastric tube courses into the stomach. 3. Lungs reasonably clear. Haim Anaya MD Objective Remarks HEENT/ Neuro: Sedated, orally intubated, Pallor present, no icterus, tongue/ mucosa moist. Pupils 2mm bilaterally constricted, reactive to light. Ventriculostomy in place Neck: No JVD Chest/Pulm: on mech vent, good air entry bilaterally, no wheezing or crackles CVS: S1-S2 regular, no murmur GI/abdomen: soft, nontender, bowel sounds sluggish Extremities: warm bilaterally, no edema A/P Problem List: (1) Hypertension ICD Code: I10 Status: Acute (2) Atrial fibrillation ICD Code: I48.91 Status: Acute (3) Coagulopathy ICD Code: D68.9 Status: Acute (4) Intracranial hemorrhage ICD Code: I62.9 Status: Acute (5) Diabetes ICD Code: E11.9 Status: Acute (6) Respiratory failure with hypoxia ICD Code: J96.91 Status: Acute Assessment and Plan Acute hypoxic and hypercarbic Respiratory failure - intubated for airway protection - mechanical ventilation - end tidal Co2 - no weaning until neurologically improved Intracranial hemorrhagic stroke - posterior fosa - s/p posterior decompression on 05/04 - 3% NS - EVD - monitor ICP. Keppra for seizure prophylaxis. Neurosurgery following - cardene and esmolol for goal SBP < 150, will attempt to wean today. Coagulopathy - reversed Coumadin with Vit K, FFP and Kcentra - Follow INR Hypertension - Cardene gtt, hydralazine/ labetalol prn, esmolol gtt - start labetalol 300mg po q8h - hydralazine 10mg iv q20min and labetalol 20mg iv q1h to help get off drips. - metoprolol 5mg iv q4h prn for HR > 100. - SBP goal < 150 DM -increase Levemir to 50 units [id number]. High-dose sliding scale insulin. A.Fib - rate controlled - Lopressor i.v. GI - tube feeds with Glucerna at goal as tolerated. ID Leukocytosis noted. bruce cultured. start cefepime and flagyl. follow up speciation of GNR in sputum. patient had witnessed aspiration event in OR per nursing report. DVT/GI prophylaxis - TEDs/SCDs/Pepcid Critical Care: The total critical care time was 47 minutes. Time to perform other separately billable procedures was not included in the critical care time. Problem Qualifiers (1) Respiratory failure with hypoxia: Qualified Code: J96.01 - Acute respiratory failure with hypoxia Ranch[place] Arrieta MD May 06, 2016 10:21
[2016-05-06] MEDS ORDERED: metroNIDAZOLE 500 MG INJ 100 ML IV SCH (11:00)
[2016-05-06] MEDS: LACTULOSE SYRUP 20 GM/30 ML CUP PO SCH ×2 (11:55→20:35)
[2016-05-06] MEDS: LABETALOL HCL 200 MG TAB PO SCH ×3 (11:56→20:36)
[2016-05-06] MEDS: levETIRAcetam INJ 500 MG in SODIUM CHLORIDE 0.9% INJ 100 ML IV SCH (11:57)
--- NOTE | 2016-05-06 12:38 | RADRPT ---
EXAM DATE/TIME: 05/06/2016 12:19 [facility] COMPARISON: CHEST SINGLE AP, May 03, 2016, 3:27. INDICATIONS : Fever. MEDICAL HISTORY : Hypertension. Chronic obstructive pulmonary disease. SURGICAL HISTORY : None. ENCOUNTER: Initial ACUITY: 3 days PAIN SCORE: Non-responsive. LOCATION: Bilateral chest FINDINGS: The cardiac silhouette is enlarged in transverse diameter. The exam is limited secondary to motion ar tifact which limits the interpretation. Support lines and tubes are in satisfactory position. There i s subsegmental atelectasis in the both bases. CONCLUSION: 1. Subsegmental atelectasis both bases. This is new when compared with the prior exam. Michael Mehta MD on May 06, 2016 at 12:36 Board Certified Radiologist. This report was verified electronically.
[2016-05-06] MEDS: LEVOFLOXACIN 750 MG PREMIX INJ 150 ML IV SCH (12:52)
[2016-05-06] MEDS ORDERED: LEVOFLOXACIN 750 MG PREMIX INJ 150 ML IV SCH (17:00)
--- NOTE | 2016-05-06 20:01 | MG ---
cc: PETE HARDIN M.D. Lab No: Date: 05/06/16 Age: 65 Sex: F Race: An EEG was obtained on this 65-year-old patient, on Diprivan and fentanyl, intubated. This EEG shows prominent theta and delta activity. There are low amplitude beta rhythms. There is a lack of alpha activity. The background seems to remain continuously very slow. There is artifactual activity intermittently probably "cold sweat artifact". INTERPRETATION Abnormal EEG because of continuous slowing diffusely suggestive of a moderate to severe diffuse disturbance of cerebral function. No ictal abnormality. Clinical correlation and followup EEG is recommended. MD PATY Cortez/TONIE /6:43 PM /7:58 PM
[2016-05-06] MEDS: FAMOTIDINE 20 MG TAB PO SCH (20:36)
[2016-05-06] MEDS ORDERED: PILL SPLITTER OTHER PRN (21:00)
[2016-05-06] MEDS: RESP: ALBUTEROL 2.5 MG/IPRATROPIUM 0.5 MG NEB (PRN) INH (23:41)
[2016-05-07] VITALS (18 sets, daily range): BP systolic 124–184; BP diastolic 56–66; PULSE 74–100; RESP 22–27; TEMP 99.3–102.1; O2SAT 93–100
[2016-05-07] MEDS: INSULIN ASPART SUPPLEMENTAL SCALE SQ SCH ×8 (00:06→23:51)
[2016-05-07] MEDS: ACETAMINOPHEN 325 MG TAB PO PRN ×3 (00:06→23:51)
[2016-05-07] MEDS: levETIRAcetam INJ 500 MG in SODIUM CHLORIDE 0.9% INJ 100 ML IV SCH ×3 (00:06→23:52)
[2016-05-07] MEDS: 3% SALINE INJ 500 ML IV SCH ×2 (01:00→23:52)
[2016-05-07] MEDS: PROPOFOL 1000 MG/100 ML INJ 100 ML IV SCH ×4 (01:54→19:56)
[2016-05-07] MEDS: CHLORHEXIDINE GLUCONATE 2 % 1 PACK (2 CLOTHS) TOP SCH (03:29)
[2016-05-07] MEDS: LABETALOL HCL 200 MG TAB PO SCH ×3 (05:08→20:30)
[2016-05-07 05:52] LABS: HEMATOCRIT 24.2 % (35.0-46.0); MEAN CELL VOLUME 89.2 FL (80.0-100.0); MEAN CORPUSCULAR HEMOGLOBIN 28.5 PG (27.0-34.0); PLATELET COUNT 193 TH/MM3 (150-450); RED BLOOD COUNT 2.72 MIL/MM3 (4.00-5.30); RED CELL DISTRIBUTION WIDTH 14.7 % (11.6-17.2); REVIEW FLAG FINAL; WHITE BLOOD COUNT 15.5 TH/MM3 (4.0-11.0)
[2016-05-07] MEDS: niCARdipine INJ 50 MG in SODIUM CHLORID 0.9% 500 ML INJ 480 ML IV SCH (05:53)
[2016-05-07 06:08] LABS: BICARBONATE 19.1 MEQ/L (21.0-32.0); POTASSIUM 3.9 MEQ/L (3.5-5.1)
[2016-05-07] MEDS: INSULIN DETEMIR 100 UNITS/ML VIAL SQ SCH ×2 (08:53→20:29)
[2016-05-07] MEDS: ARTIFICIAL TEARS OPTH SOLN 15 ML BTL EACH EYE SCH ×3 (08:53→17:47)
[2016-05-07] MEDS: LACTULOSE SYRUP 20 GM/30 ML CUP PO SCH ×2 (08:54→20:28)
[2016-05-07] MEDS: FAMOTIDINE 20 MG TAB PO SCH ×2 (08:54→20:29)
[2016-05-07] MEDS: DOCUSATE SODIUM 50 MG/SENNA 8.6 MG TAB PO SCH ×2 (08:54→20:29)
[2016-05-07] MEDS: SODIUM CHLORIDE 0.9% FLUSH 5 ML FLUSH IVF SCH ×2 (08:54→20:28)
[2016-05-07] MEDS: POLYETHYLENE GLYCOL 17 GM PKG PO SCH ×2 (08:54→20:28)
[2016-05-07] MEDS: BISACODYL 10 MG SUPP RECTAL SCH (08:56)
[2016-05-07] MEDS: hydrALAZINE HCL 20 MG/ML VIAL IV PUSH PRN ×2 (09:51→23:53)
--- NOTE | 2016-05-07 11:25 | HHI.NSPN ---
(Bri Merchant) Note Status Status: Progress Note (Bri Merchant) Interval History Interval History This is a 65 year old female brought in by EMS as a stroke alert. She has history of multiple ischemic strokes in the past with residual left-sided weakness from the strokes. Patient has a history of Antiphospholipid syndrome and is on anticoagulated Coumadin. Apparently she was sitting down watching TV with her when she became unresponsive, with aphasia, nausea vomiting, dizziness, and increasing left-sided weakness. She is a known tyoe II diabetic and appears to be uncontrolled in ketoacidosis. EMS was called. She was brought to ED stroke alert. CT head revealed a posterior fossa ICH. She underwent emergen posterior fossa craniectomy with evacuation of cerebellar bleed and placement of ventriculostomy drain on 05/03/16. 05/04: well sedated. Pupils equal. EVD at 0 cm H20, ICPs below 10. 05/05: ICPs remains within normal limits, pupils equal, ventriculostomy draining well. 05/06: hypertensive, BP was up in the 200's systolic yesterday, on cardene. Currently running 150s. ICPs normal, EVD draining well. serum sodium 148. well sedated also for bp control. 05/07: intubated, sedated, pupils equal. EEG no ictal abnormalities. (Bri Merchant) Labs, Micro, & Vital Signs Results Date Time Temp Pulse Resp B/P Pulse Ox O2 Delivery O2 Flow Rate FiO2 05/07/16 10:00 95 05/07/16 08:00 95 05/07/16 08:00 40 05/07/16 07:53 99 40 05/07/16 06:00 74 05/07/16 05:15 93 80 05/07/16 04:00 40 05/07/16 04:00 93 05/07/16 04:00 102.1 93 25 145/61 98 05/07/16 02:00 100 05/07/16 01:08 99 40 05/07/16 00:00 40 05/07/16 00:00 91 05/07/16 00:00 101.5 91 27 124/57 98 05/06/16 23:42 96 40 05/06/16 22:00 82 05/06/16 21:00 99 40 05/06/16 20:00 95 05/06/16 20:00 103.2 94 25 168/71 98 05/06/16 20:00 40 05/06/16 18:00 116 05/06/16 16:00 114 05/06/16 16:00 103.1 97 22 156/60 98 05/06/16 16:00 40 05/06/16 15:20 98 40 05/06/16 14:00 115 05/06/16 12:14 97 40 05/06/16 12:00 97 05/06/16 12:00 101.0 100 22 168/68 98 05/07/16 07:00 Intake Total 4898 ml Output Total 2964 ml Balance 1934 ml Constitutional Vital Signs Date Time Temp Pulse Resp B/P Pulse Ox O2 Delivery O2 Flow Rate FiO2 05/07/16 10:00 95 05/07/16 08:00 95 05/07/16 08:00 40 05/07/16 07:53 99 40 05/07/16 06:00 74 05/07/16 05:15 93 80 05/07/16 04:00 40 05/07/16 04:00 93 05/07/16 04:00 102.1 93 25 145/61 98 05/07/16 02:00 100 05/07/16 01:08 99 40 05/07/16 00:00 40 05/07/16 00:00 91 05/07/16 00:00 101.5 91 27 124/57 98 05/06/16 23:42 96 40 05/06/16 22:00 82 05/06/16 21:00 99 40 05/06/16 20:00 95 05/06/16 20:00 103.2 94 25 168/71 98 05/06/16 20:00 40 05/06/16 18:00 116 05/06/16 16:00 114 05/06/16 16:00 103.1 97 22 156/60 98 05/06/16 16:00 40 05/06/16 15:20 98 40 05/06/16 14:00 115 05/06/16 12:14 97 40 05/06/16 12:00 97 05/06/16 12:00 101.0 100 22 168/68 98 05/07/16 07:00 Intake Total 4898 ml Output Total 2964 ml Balance 1934 ml (Bri Merchant) Review of Systems/Exam Exam Ms. Spann is intubated and well sedated. Right EVD in place at 0 cm H20, CSF xanthochromic. ICPs= 7 Wound with clean dressing Cranial Nerves: Pupils equal, round. Continuous side to side eye rolling seen, no tonic/clonic activities. Sensorimotor: muscle tone and bulk are normal. 2/5 withdrawals in LE's, left > right Reflexes: Plantars silent b/l Cerebellar: unable to assess Diffuse extremity swelling. (Bri Merchant) Medications Current Medications Current Medications Medications (Trade) Dose Ordered Sig/Michelle Route PRN Reason Start Time Stop Time Status Last Admin Dose Admin Artificial Tears (Tears Naturale Opth Soln) 1 drop TID EACH EYE 05/03/16 09:00 05/07/16 08:53 Ondansetron HCl (Zofran Inj) 4 mg Q6H PRN IV NAUSEA OR VOMITING 05/03/16 04:30 Miscellaneous Information 1 Q361D XX 05/03/16 04:30 05/03/16 04:30 Chlorhexidine Gluconate (Chlorhexidine 2% Cloth) 3 pack Taper DAILY@04 TOP 05/04/16 04:00 04/30/17 03:59 05/07/16 03:29 Chlorhexidine Gluconate 3 pack 3 pack UNSCH PRN TOP HYGIENIC CARE 05/03/16 04:30 Propofol (Diprivan 1000 Mg/100ml Inj) 100 ml @ 0 mls/hr TITRATE IV 05/03/16 04:30 05/07/16 09:51 IV Flush (NS Flush) 2 ml UNSCH PRN IVF FLUSH AFTER USING IV ACCESS 05/03/16 12:30 IV Flush 2 ml 2 ml BID IVF 05/03/16 21:00 05/07/16 08:54 Levetriacetam/ Sodium Chloride (Keppra Inj/NS Inj) 105 ml @ 400 mls/hr Q12H IV 05/03/16 13:00 05/07/16 00:06 Calcium Gluconate 1 gm 1 gm UNSCH PRN IV SEE LABEL COMMENTS 05/03/16 12:30 Potassium Chloride 100 ml @ 50 mls/hr UNSCH PRN IV POTASSIUM LESS THAN 4 05/03/16 12:30 05/04/16 06:56 Magnesium Sulfate/ Sodium Chloride (Magnesium Sulfate Inj/NS Inj) 108 ml @ 108 mls/hr UNSCH PRN IV MAGNESIUM LESS THAN 2 05/03/16 12:30 Acetaminophen 650 mg 650 mg Q4H PRN PO TEMPERATURE > 101.5 F 05/03/16 12:30 05/07/16 05:09 Nicardipine HCl 50 mg/Sodium Chloride 500 ml @ 0 mls/hr TITRATE IV 05/03/16 18:17 05/07/16 05:53 Potassium Chloride 100 ml @ 50 mls/hr Q2H PRN IV For Potassium 2.8 - 3.2 mEq/L 05/04/16 08:45 Potassium Chloride (KCl 20 Meq Premix Inj) 100 ml @ 50 mls/hr Q2H PRN IV For Potassium 2.8 - 3.2 mEq/L 05/04/16 08:45 Potassium Chloride 40 meq 40 meq UNSCH PRN PO/TUBE For Potassium 3.3 - 3.5 mEq/L 05/04/16 08:45 Potassium Chloride 100 ml @ 25 mls/hr UNSCH PRN IV For Potassium 3.3 - 3.5 mEq/L 05/04/16 08:45 Potassium Chloride 100 ml @ 50 mls/hr Q2H PRN IV For Potassium 3.3 - 3.5 mEq/L 05/04/16 08:45 Magnesium Sulfate/ Sodium Chloride (Magnesium Sulfate Inj/NS Inj) 100 ml @ 50 mls/hr UNSCH PRN IV For Magnesium 0.9 - 1.1 mg/dL 05/04/16 08:45 Magnesium Oxide 800 mg 800 mg UNSCH PRN PO For Magnesium 1.2 - 1.6 mg/dL 05/04/16 08:45 Magnesium Sulfate/ Sodium Chloride (Magnesium Sulfate Inj/NS Inj) 100 ml @ 50 mls/hr UNSCH PRN IV For Magnesium 1.2 - 1.6 mg/dL 05/04/16 08:45 Potassium Phosphate 2000 mg 2,000 mg Q4H PRN PO For Phosphorus < 2.5 mg/dL 05/04/16 08:45 Sodium Phosphate/ Sodium Chloride (Sodium Phosphate Inj/NS 250 ml Inj) 250 ml @ 42 mls/hr UNSCH PRN IV For Phosphorus < 2.5 mg/dL 05/04/16 08:45 Potassium Chloride (KCl 40 Meq/30 ml Liq) 40 meq UNSCH PRN PO/TUBE SEE LABEL COMMENTS 05/04/16 08:45 Potassium Phosphate 2000 mg 2,000 mg UNSCH PRN PO/TUBE SEE LABEL COMMENTS 05/04/16 08:45 Potassium Phosphate/Sodium Chloride (Potassium Phosphate Inj/NS 250 ml Inj) 260 ml @ 42 mls/hr UNSCH PRN IV SEE LABEL COMMENTS 05/04/16 08:45 Insulin Aspart (NovoLOG SUPPLEMENTAL SCALE) 1 Q4HR SQ 05/04/16 12:00 05/07/16 08:53 Dextrose (D50w (Vial) Inj) 25 ml UNSCH PRN IV HYPOGLYCEMIA-SEE COMMENTS 05/04/16 08:45 Glucagon 1 mg 1 mg UNSCH PRN IM/SQ HYPOGLYCEMIA-SEE COMMENTS 05/04/16 08:45 Sodium Chloride (Sodium Chloride 3% Inj) 500 ml @ 10 mls/hr Q24H IV 05/05/16 01:00 05/05/16 23:49 Insulin Detemir (Levemir Inj) 50 units Q12HR SQ 05/06/16 21:00 05/07/16 08:53 Labetalol HCl (Trandate Inj) 20 mg Q1H PRN IVS SBP greater than 160mm Hg 05/06/16 10:00 Metoprolol Tartrate (Lopressor Inj) 5 mg Q4H PRN IV PUSH HR > 100 05/06/16 11:00 Bisacodyl (Dulcolax Supp) 10 mg DAILY RECTAL 05/07/16 09:55 Polyethylene Glycol (Miralax) 17 gm BID PO 05/06/16 09:55 05/06/16 20:36 Lactulose (Lactulose Liq) 30 ml BID PO 05/06/16 11:00 05/06/16 20:35 Senna/Docusate Sodium (Meaghan-Colace) 1 tab BID PO 05/06/16 10:00 05/06/16 20:36 Famotidine (Pepcid) 10 mg BID PO 05/06/16 21:00 05/07/16 08:54 Labetalol HCl (Trandate) 300 mg Q8HR PO 05/06/16 11:00 05/07/16 05:08 Hydralazine HCl 10 mg 10 mg Q30M PRN IV PUSH SYS BP GREATER THAN 150 MMHG 05/06/16 10:00 05/07/16 09:51 Levofloxacin/ Dextrose (Levaquin 750 Mg Premix Inj) 150 ml @ 100 mls/hr Q48H IV 05/06/16 12:00 05/06/16 12:52 Miscellaneous (Pill Splitter) 1 ea UNSCH PRN OTHER SEE LABEL COMMENTS 05/06/16 21:00 (Bri Merchant) Medical Decision Making MDM Remarks 65 y/o female with cerebellar bleed coagulopathy with supratherapeutic INR, s/p Vitamin K and KCentra history of antiphospholipid antibody new eye rolling, r/o seizures, EEG reports no ictal activities (Bri Merchant) Plan Plan Remarks cont ventriculostomy draining at 0 cm H20 with ICP monitoring cont hyperosmotic tx with 3% NS sedation weaning as tolerated nonchemical DVT prophylaxis in view of ICH (Bri Merchant) Attending Statement The exam, history, and the medical decision-making described in the above note were completed with the assistance of the mid-level provider. I reviewed and agree with the findings presented. I attest that I had a [id number] encounter with the patient on the same day, and personally performed and documented my assessment and findings in the medical record. (Oumar Chavez MD) Bri Merchant May 07, 2016 11:25 Oumar Chavez MD May 09, 2016 18:11
--- NOTE | 2016-05-07 12:51 | HHI.CCPN ---
Subjective Remarks/Hospital Course 05/03: 65 years old female was brought in by EMS for stroke alert. Patient has history of multiple strokes in the past. Patient has residual left-sided weakness from the strokes. Patient has an Antiphospholipid syndrome and is on Coumadin. Patient was sitting down watching TV with her then patient started became more unresponsive, having aphasia, nausea vomiting, dizziness, increasing left-sided weakness. EMS was called. Patient was brought to ED stroke alert. CT head revealed large posterior fossa ICH. 05/04: Remains sedated, orally intubated on mechanical ventilation. Underwent suboccipital decompression on 05/03. Ventriculostomy in place. ICPs below 10. Drained 150 cc CSF overnight 05/05: acutely this afternoon, her SBP increased from 150s to 200s. neuro exam unchanged, remains sedated on propofol without sedation vacation today per nsgy. pupillary exam unchanged, 2mm equal, reactive. required labetalol 60mg iv , esmolol 150mcg/kg/min, and cardene 15mg/hr to bring back down to goal SBP 150s. EVD still at 0 per nsgy. ICP in lateral ventricles 1. 2: severely hypertensive and febrile. re-cultured overnight. sputum growing GNR. 05/07: Patient remains hypertensive currently on nicardipine and esmolol infusions. Instructions given to titrated up nicardipine, start Norvasc 5 mg daily. Sputum culture with pansensitive Klebsiella. at the bedside updated Objective Vital Signs Date Time Temp Pulse Resp B/P Pulse Ox O2 Delivery O2 Flow Rate FiO2 05/07/16 11:34 99 40 05/07/16 10:00 95 05/07/16 04:00 102.1 25 145/61 Intake and Output 05/06/16 05/06/16 05/07/16 08:00 16:00 00:00 Intake Total 3081 ml 2652 ml 1091 ml Output Total 1252 ml 1700 ml 822 ml Balance 1829 ml 952 ml 269 ml Result Diagram: 05/07/16 0520 05/07/16 1058 Other Results Microbiology Date/Time Procedure Status Source Growth 05/04/16 17:10 Gram Stain - Final Complete Sputum Endotracheal 05/04/16 17:10 Sputum Culture - Final Complete Klebsiella Pneumoniae 05/04/16 17:10 Urine Culture - Final Complete Urine Catheterized Urine NO GROWTH IN 48 HOURS. Laboratory Tests Test 05/07/16 10:41 Blood Gas Puncture Site ART LINE Blood Gas Patient Temperature 98.6 Blood Gas HCO3 18 mmol/L (22-26) Blood Gas Base Excess -6.3 mmol/L (-2-2) Blood Gas Oxygen Saturation 96 % (90-100) Arterial Blood pH 7.40 (7.380-7.420) Arterial Blood Partial 29 mmHg (38-42) Pressure CO2 Arterial Blood Partial 127 mmHg Pressure O2 (61-120) Arterial Blood Oxygen Content 16.9 Vol % (12.0-20.0) Arterial Blood 1.3 % (0-4) Carboxyhemoglobin Arterial Blood Methemoglobin 0.9 % (0-2) Blood Gas Hemoglobin 12.3 G/DL (12.0-16.0) Blood Gas Ventilator Setting PRVC/22/600/IT1.0/+5 Blood Gas Inspired Oxygen 40 % Imaging Last [address] 05/03/16 0000 Signed Impressions: Service Date/Time: Tuesday, May 03, 2016 01:18 - CONCLUSION: Large acute posterior fossa hemorrhage. There is also blood in the fourth and third ventricles. Report was called to Dr. Rodrigues at 1:30 AM. Haim Anaya MD Chest X-Ray 05/03/16 0000 Signed Impressions: Service Date/Time: Tuesday, May 03, 2016 01:53 - CONCLUSION: 1. Endotracheal tube tip is about 1.5 cm above the luis antonio. 2. Nasogastric tube courses into the stomach. 3. Lungs reasonably clear. Haim Anaya MD Objective Remarks HEENT/ Neuro: Sedated, orally intubated, Pallor present, no icterus, tongue/ mucosa moist. Pupils 2mm bilaterally constricted, reactive to light. Ventriculostomy in place at 0 Withdraws bilateral lower extremities to pain Neck: No JVD Chest/Pulm: on mech vent, good air entry bilaterally, no wheezing or crackles CVS: S1-S2 regular, no murmur GI/abdomen: soft, nontender, bowel sounds sluggish Extremities: warm bilaterally, no edema Urinary Catheter: Yes Assessment to: Continue A/P Problem List: (1) Intracranial hemorrhage ICD Code: I62.9 Status: Acute (2) Respiratory failure with hypoxia ICD Code: J96.91 Status: Acute (3) Hypertension ICD Code: I10 Status: Acute (4) Atrial fibrillation ICD Code: I48.91 Status: Acute (5) Coagulopathy ICD Code: D68.9 Status: Acute (6) Diabetes ICD Code: E11.9 Status: Acute Assessment and Plan Acute hypoxic and hypercarbic Respiratory failure - intubated for airway protection, continue mechanical ventilation - end tidal Co2 - no weaning until neurologically improved, BP better controlled Intracranial hemorrhagic stroke - posterior fosa - s/p posterior decompression on 05/04 - 3% NS - EVD - monitor ICP. Keppra for seizure prophylaxis. Neurosurgery following - cardene and esmolol for goal SBP < 150, will attempt to wean today after starting Norvasc 5 mg daily Coagulopathy - reversed Coumadin with Vit K, FFP and Kcentra - Follow INR Hypertension - Cardene gtt, hydralazine/ labetalol prn, esmolol gtt - started labetalol 300mg po q8h, add Norvasc 5 mg daily - hydralazine 10mg iv q20min and labetalol 20mg iv q1h to help get off drips. - metoprolol 5mg iv q4h prn for HR > 100. - SBP goal < 150 DM -iLevemir to 50 units [id number]. High-dose sliding scale insulin. A.Fib - rate controlled - Lopressor i.v. GI - tube feeds with Glucerna at goal as tolerated. - Bowel regimen ID Leukocytosis noted. bruce cultured. started on cefepime and flagyl. Pansensitive Klebsiella in sputum. patient had witnessed aspiration event in OR per nursing report. DVT/GI prophylaxis - TEDs/SCDs/Pepcid Critical Care: The total critical care time was 40 minutes. Time to perform other separately billable procedures was not included in the critical care time. Problem Qualifiers (1) Respiratory failure with hypoxia: Qualified Code: J96.01 - Acute respiratory failure with hypoxia Deidre Whitmore MD May 07, 2016 12:51
[2016-05-07] MEDS: amLODIPine BESYLATE 5 MG TAB PO SCH (17:46)
[2016-05-08] VITALS (16 sets, daily range): BP systolic 122–157; BP diastolic 48–57; PULSE 77–100; RESP 23–30; TEMP 101.8–103.3; O2SAT 99–100
[2016-05-08] MEDS: niCARdipine INJ 50 MG in SODIUM CHLORID 0.9% 500 ML INJ 480 ML IV SCH ×2 (00:27→05:43)
[2016-05-08] MEDS: ESMOLOL DRIP INJ PREMIX 250 ML IV SCH ×2 (00:27→05:43)
[2016-05-08] MEDS: CHLORHEXIDINE GLUCONATE 2 % 1 PACK (2 CLOTHS) TOP SCH (03:12)
[2016-05-08] MEDS: INSULIN ASPART SUPPLEMENTAL SCALE SQ SCH ×6 (03:24→23:55)
[2016-05-08] MEDS: hydrALAZINE HCL 20 MG/ML VIAL IV PUSH PRN ×3 (03:48→13:19)
[2016-05-08 04:42] LABS: AUTOMATED NEUTROPHIL # 12.6 TH/MM3 (1.8-7.7); BASOPHIL # 0.1 TH/MM3 (0-0.2); BASOPHIL % 0.5 % (0.0-2.0); EOSINOPHIL % 0.1 % (0.0-4.0); HEMATOCRIT 24.2 % (35.0-46.0); LYMPH % 12.8 % (9.0-44.0); LYMPHOCYTE # 2.1 TH/MM3 (1.0-4.8); MEAN CORPUSCULAR HEMOGLOBIN 28.5 PG (27.0-34.0); MONO % 8.8 % (0.0-8.0); NEUT % 77.8 % (16.0-70.0); PLATELET COUNT 185 TH/MM3 (150-450); RED BLOOD COUNT 2.72 MIL/MM3 (4.00-5.30); RED CELL DISTRIBUTION WIDTH 14.8 % (11.6-17.2); WHITE BLOOD COUNT 16.1 TH/MM3 (4.0-11.0)
[2016-05-08 04:45] LABS: BICARBONATE 21.6 MEQ/L (21.0-32.0); MAGNESIUM 2.4 MG/DL (1.5-2.5); POTASSIUM 4.7 MEQ/L (3.5-5.1)
[2016-05-08 04:50] LABS: HEMO FLAGS AUTO DIFF
[2016-05-08] MEDS: LABETALOL HCL 200 MG TAB PO SCH ×3 (05:10→20:27)
[2016-05-08] MEDS: ACETAMINOPHEN 325 MG TAB PO PRN ×2 (05:10→10:38)
--- NOTE | 2016-05-08 05:20 | RADRPT ---
EXAM DATE/TIME: 05/08/2016 04:21 [facility] COMPARISON: CHEST SINGLE AP, May 06, 2016, 12:19. INDICATIONS : Shortness of breath. MEDICAL HISTORY : Hypertension. Chronic obstructive pulmonary disease. SURGICAL HISTORY : None. ENCOUNTER: Subsequent ACUITY: 4 - 6 days PAIN SCORE: Non-responsive. LOCATION: Bilateral chest FINDINGS: Portable AP view of the chest demonstrates a normal-sized cardiac silhouette. ETT, NG tube, and left IJ central line remain present. Lungs are underinflated and there is atelectasis versus mild consolid ation in the left lower lobe. There is a stable small right basilar pleural-parenchymal opacity. No p neumothorax is visualized. CONCLUSION: Stable chest x-ray with atelectasis versus consolidation at the left lung base and small right pleura l effusion with associated volume loss and/or airspace consolidation. Haim Moy MD on May 08, 2016 at 5:17 Board Certified Radiologist. This report was verified electronically.
[2016-05-08] MEDS: PROPOFOL 1000 MG/100 ML INJ 100 ML IV SCH ×3 (05:42→20:26)
[2016-05-08] MEDS ORDERED: SODIUM CHLOR 0.9% 1000 ML INJ 1,000 ML IV ONE (06:30)
[2016-05-08] MEDS: amLODIPine BESYLATE 5 MG TAB PO SCH (08:46)
[2016-05-08] MEDS: INSULIN DETEMIR 100 UNITS/ML VIAL SQ SCH ×2 (08:46→20:26)
[2016-05-08] MEDS: LACTULOSE SYRUP 20 GM/30 ML CUP PO SCH ×2 (08:46→20:27)
[2016-05-08] MEDS: FAMOTIDINE 20 MG TAB PO SCH ×2 (08:46→20:27)
[2016-05-08] MEDS: POLYETHYLENE GLYCOL 17 GM PKG PO SCH ×2 (08:46→20:27)
[2016-05-08] MEDS: SODIUM CHLORIDE 0.9% FLUSH 5 ML FLUSH IVF SCH ×2 (08:47→20:27)
[2016-05-08] MEDS: DOCUSATE SODIUM 50 MG/SENNA 8.6 MG TAB PO SCH ×2 (08:47→20:27)
[2016-05-08] MEDS: BISACODYL 10 MG SUPP RECTAL SCH (08:47)
[2016-05-08] MEDS: ARTIFICIAL TEARS OPTH SOLN 15 ML BTL EACH EYE SCH ×3 (08:47→17:24)
[2016-05-08] MEDS ORDERED: ALTEPLASE RECOMBINANT 2 MG VIAL IV FLUSH ONE (10:15)
[2016-05-08 10:17] LABS: BLOOD GAS BASE EXCESS -6.3 mmol/L (-2-2); BLOOD GAS CARBOXYHEMOGLOBIN 1.5 % (0-4); BLOOD GAS HCO3 18 mmol/L (22-26); BLOOD GAS METHEMOGLOBIN 1.1 % (0-2); BLOOD GAS O2 HGB SATURATION 96 % (90-100); BLOOD GAS OXYGEN CONTENT 10.9 Vol % (12.0-20.0); BLOOD GAS PCO2 31 mmHg (38-42); BLOOD GAS PO2 119 mmHg (61-120); BLOOD GAS TOTAL HGB 7.9 G/DL (12.0-16.0); TEMP CORR TO 98.6
[2016-05-08 10:18] LABS: CRITICAL VALUE NO
[2016-05-08 10:19] LABS: DRAW SITE ART LINE; FIO2 40 %; OXYGEN DEVICE VENTILATOR; STAT NO; VENT SETTINGS PRVC 22/500/1.0IT/5+
[2016-05-08] MEDS: LABETALOL HCL 100 MG/20 ML VIAL IVS PRN (10:38)
[2016-05-08 10:42] LABS: BANDS 13 % (0-6); NEUTROPHIL # MANUAL DIFF 13.2 TH/MM3 (1.8-7.7); PLATELET ESTIMATE SMEAR NORMAL (NORMAL); PLATELET MORPHOLOGY NORMAL (NORMAL); POLYS (SEG NEUTROPHILS) 69 % (16-70); SCAN/DIFF FINAL DIFF MANUAL; WBC DIFF SAMPLE 100
[2016-05-08] MEDS: levETIRAcetam INJ 500 MG in SODIUM CHLORIDE 0.9% INJ 100 ML IV SCH ×2 (12:32→23:55)
[2016-05-08] MEDS: LEVOFLOXACIN 750 MG PREMIX INJ 150 ML IV SCH (12:32)
--- NOTE | 2016-05-08 14:37 | HHI.CCPN ---
Subjective Remarks/Hospital Course 05/03: 65 years old female was brought in by EMS for stroke alert. Patient has history of multiple strokes in the past. Patient has residual left-sided weakness from the strokes. Patient has an Antiphospholipid syndrome and is on Coumadin. Patient was sitting down watching TV with her then patient started became more unresponsive, having aphasia, nausea vomiting, dizziness, increasing left-sided weakness. EMS was called. Patient was brought to ED stroke alert. CT head revealed large posterior fossa ICH. 05/04: Remains sedated, orally intubated on mechanical ventilation. Underwent suboccipital decompression on 05/03. Ventriculostomy in place. ICPs below 10. Drained 150 cc CSF overnight 05/05: acutely this afternoon, her SBP increased from 150s to 200s. neuro exam unchanged, remains sedated on propofol without sedation vacation today per nsgy. pupillary exam unchanged, 2mm equal, reactive. required labetalol 60mg iv , esmolol 150mcg/kg/min, and cardene 15mg/hr to bring back down to goal SBP 150s. EVD still at 0 per nsgy. ICP in lateral ventricles 1. 2: severely hypertensive and febrile. re-cultured overnight. sputum growing GNR. 05/07: Patient remains hypertensive currently on nicardipine and esmolol infusions. Instructions given to titrated up nicardipine, start Norvasc 5 mg daily. Sputum culture with pansensitive Klebsiella. at the bedside updated 05/08: No improvement in neuro status. Continues to spike fever 103.3 MAXIMUM TEMPERATURE. Off nicardipine and esmolol. We'll start scheduled Tylenol and cooling blanket. repeat bruce culture Objective Vital Signs Date Time Temp Pulse Resp B/P Pulse Ox O2 Delivery O2 Flow Rate FiO2 05/08/16 14:00 100 05/08/16 12:00 102.2 30 122/48 99 05/08/16 10:59 40 Intake and Output 05/07/16 05/07/16 05/08/16 08:00 16:00 00:00 Intake Total 1155 ml 1759 ml 1047 ml Output Total 442 ml 800 ml 810 ml Balance 713 ml 959 ml 237 ml Result Diagram: 05/08/16 0415 05/08/16 0415 Other Results Laboratory Tests Test 05/08/16 10:12 Blood Gas Puncture Site ART LINE Blood Gas Patient Temperature 98.6 Blood Gas HCO3 18 mmol/L (22-26) Blood Gas Base Excess -6.3 mmol/L (-2-2) Blood Gas Oxygen Saturation 96 % (90-100) Arterial Blood pH 7.38 (7.380-7.420) Arterial Blood Partial 31 mmHg (38-42) Pressure CO2 Arterial Blood Partial 119 mmHg Pressure O2 (61-120) Arterial Blood Oxygen Content 10.9 Vol % (12.0-20.0) Arterial Blood 1.5 % (0-4) Carboxyhemoglobin Arterial Blood Methemoglobin 1.1 % (0-2) Blood Gas Hemoglobin 7.9 G/DL (12.0-16.0) Oxygen Delivery Device VENTILATOR Blood Gas Ventilator Setting PRVC 22/500/1.0IT/5+ Blood Gas Inspired Oxygen 40 % Imaging Last [address] 05/03/16 0000 Signed Impressions: Service Date/Time: Tuesday, May 03, 2016 01:18 - CONCLUSION: Large acute posterior fossa hemorrhage. There is also blood in the fourth and third ventricles. Report was called to Dr. Rodrigues at 1:30 AM. Haim Anaya MD Chest X-Ray 05/03/16 0000 Signed Impressions: Service Date/Time: Tuesday, May 03, 2016 01:53 - CONCLUSION: 1. Endotracheal tube tip is about 1.5 cm above the luis antonio. 2. Nasogastric tube courses into the stomach. 3. Lungs reasonably clear. Haim Anaya MD Objective Remarks HEENT/ Neuro: Sedated, orally intubated, Pallor present, no icterus, tongue/ mucosa moist. Pupils 2mm bilaterally constricted, reactive to light. Ventriculostomy in place at 0 Withdraws bilateral lower extremities to pain Neck: No JVD Chest/Pulm: on mech vent, good air entry bilaterally, no wheezing or crackles CVS: S1-S2 regular, no murmur GI/abdomen: soft, nontender, bowel sounds sluggish Extremities: warm bilaterally, no edema A/P Problem List: (1) Intracranial hemorrhage ICD Code: I62.9 Status: Acute (2) Respiratory failure with hypoxia ICD Code: J96.91 Status: Acute (3) Hypertension ICD Code: I10 Status: Acute (4) Atrial fibrillation ICD Code: I48.91 Status: Acute (5) Coagulopathy ICD Code: D68.9 Status: Acute (6) Diabetes ICD Code: E11.9 Status: Acute Assessment and Plan Acute hypoxic and hypercarbic Respiratory failure - intubated for airway protection, continue mechanical ventilation - end tidal Co2 - no weaning until neurologically improved, BP better controlled Intracranial hemorrhagic stroke - s/p posterior decompression on 05/04 - 3% NS - EVD - monitor ICP. Keppra for seizure prophylaxis. Neurosurgery following - Off cardene and esmolol for goal SBP < 160, Increase Norvasc 5 mg daily to 10 daily - Scheduled Tylenol for fever Coagulopathy - reversed Coumadin with Vit K, FFP and Kcentra - Follow INR Hypertension - Off Cardene gtt, esmolol gtt. Use hydralazine/ labetalol prn, - Continue labetalol 300mg po q8h, increase Norvasc to 10 mg daily - Hydralazine 20mg iv q20min and labetalol 20mg iv q1h to help get off drips. - Metoprolol 5mg iv q4h prn for HR > 100. - SBP goal < 150 DM -Levemir to 50 units [id number]. High-dose sliding scale insulin. A.Fib - rate controlled - Lopressor i.v. GI - tube feeds with Glucerna at goal as tolerated. - Bowel regimen ID - Leukocytosis noted. bruce cultured. Continue cefepime and flagyl. Pansensitive Klebsiella in sputum. patient had witnessed aspiration event in OR per nursing report. - Repeat blood urine and sputum cx DVT/GI prophylaxis - TEDs/SCDs/Pepcid Critical Care: The total critical care time was 40 minutes. Time to perform other separately billable procedures was not included in the critical care time. Problem Qualifiers (1) Respiratory failure with hypoxia: Qualified Code: J96.01 - Acute respiratory failure with hypoxia Deidre Whitmore MD May 08, 2016 14:37
[2016-05-08] MEDS: ACETAMINOPHEN 1000 MG/100 ML VIAL IV SCH ×2 (15:39→20:26)
[2016-05-08 16:52] LABS: ALT (GPT) 55 U/L (10-53); ANION GAP 10 MEQ/L (5-15); AST (GOT) 75 U/L (15-37); BICARBONATE 20.5 MEQ/L (21.0-32.0); BLOOD UREA NITROGEN 51 MG/DL (7-18); CHLORIDE 123 MEQ/L (98-107); GLOMERULAR FILTRATION RATE 31 ML/MIN (>89); SODIUM (NA) 153 MEQ/L (136-145)
[2016-05-08 16:55] LABS: ALKALINE PHOSPHATASE 76 U/L (45-117); TOTAL BILIRUBIN ADULT 0.3 MG/DL (0.2-1.0)
--- NOTE | 2016-05-08 19:01 | HHI.NSPN ---
History Chief Complaint: intubated Interval History 65-year-old female postop suboccipital craniectomy and evacuation cerebellar intracranial hemorrhage, ventriculostomy placement. Exam Results Vital Signs Date Time Temp Pulse Resp B/P Pulse Ox O2 Delivery O2 Flow Rate FiO2 05/08/16 18:00 89 05/08/16 18:00 103.1 05/08/16 16:00 40 05/08/16 16:00 28 130/50 100 Intake and Output 05/07/16 05/07/16 05/08/16 08:00 16:00 00:00 Intake Total 1155 ml 1759 ml 1047 ml Output Total 442 ml 800 ml 810 ml Balance 713 ml 959 ml 237 ml Physical Examination Ms. Spann is intubated and well sedated. Right EVD in place at 0 cm H20, CSF xanthochromic. ICPs= 7 Wound with clean dressing Cranial Nerves: Pupils 3 mm left, 4 mm right, nonreactive. Moderate disconjugate oculocephalic responses with right gaze preference No eye opening spontaneous, to voice, or deep pain Sensorimotor: muscle tone and bulk are normal. Presently not withdrawing to painful stimuli in the extremities Reflexes: Plantars silent b/l Cerebellar: unable to assess Diffuse extremity swelling. Lab, Micro, Other Results Laboratory Tests Test 05/07/16 05/08/16 05/08/16 05/08/16 22:00 04:15 10:12 15:46 Sodium Level 151 MEQ/L 152 MEQ/L 153 MEQ/L White Blood Count 16.1 TH/MM3 Red Blood Count 2.72 MIL/MM3 Hemoglobin 7.7 GM/DL Hematocrit 24.2 % Mean Corpuscular Volume 89.0 FL Mean Corpuscular Hemoglobin 28.5 PG Mean Corpuscular Hemoglobin 32.0 % Concent Red Cell Distribution Width 14.8 % Platelet Count 185 TH/MM3 Mean Platelet Volume 10.3 FL Neutrophils (%) (Auto) 77.8 % Lymphocytes (%) (Auto) 12.8 % Monocytes (%) (Auto) 8.8 % Eosinophils (%) (Auto) 0.1 % Basophils (%) (Auto) 0.5 % Neutrophils # (Auto) 12.6 TH/MM3 Lymphocytes # (Auto) 2.1 TH/MM3 Monocytes # (Auto) 1.4 TH/MM3 Eosinophils # (Auto) 0.0 TH/MM3 Basophils # (Auto) 0.1 TH/MM3 CBC Comment AUTO DIFF Differential Total Cells 100 Counted Neutrophils % (Manual) 69 % Band Neutrophils % 13 % Lymphocytes % 10 % Monocytes % 8 % Neutrophils # (Manual) 13.2 TH/MM3 Differential Comment FINAL DIFF MANUAL Platelet Estimate NORMAL Platelet Morphology Comment NORMAL Potassium Level 4.7 MEQ/L 5.0 MEQ/L Chloride Level 123 MEQ/L 123 MEQ/L Carbon Dioxide Level 21.6 MEQ/L 20.5 MEQ/L Anion Gap 7 MEQ/L 10 MEQ/L Blood Urea Nitrogen 41 MG/DL 51 MG/DL Creatinine 1.44 MG/DL 1.66 MG/DL Estimat Glomerular Filtration 36 ML/MIN 31 ML/MIN Rate Random Glucose 189 MG/DL 163 MG/DL Calcium Level 8.1 MG/DL 8.1 MG/DL Magnesium Level 2.4 MG/DL Blood Gas Puncture Site ART LINE Blood Gas Patient Temperature 98.6 Blood Gas HCO3 18 mmol/L Blood Gas Base Excess -6.3 mmol/L Blood Gas Oxygen Saturation 96 % Arterial Blood pH 7.38 Arterial Blood Partial 31 mmHg Pressure CO2 Arterial Blood Partial 119 mmHg Pressure O2 Arterial Blood Oxygen Content 10.9 Vol % Arterial Blood 1.5 % Carboxyhemoglobin Arterial Blood Methemoglobin 1.1 % Blood Gas Hemoglobin 7.9 G/DL Oxygen Delivery Device VENTILATOR Blood Gas Ventilator Setting PRVC 22/500/1.0IT/5+ Blood Gas Inspired Oxygen 40 % Total Bilirubin 0.3 MG/DL Aspartate Amino Transf 75 U/L (AST/SGOT) Alanine Aminotransferase 55 U/L (ALT/SGPT) Alkaline Phosphatase 76 U/L Total Protein 5.5 GM/DL Albumin 1.9 GM/DL Medical Decision Making Impression and Plan Impression: 1. Stable neurologic function following suboccipital craniectomy, evacuation cerebellar intracranial hemorrhage. Plan: 1. Continue external ventricular drain. 2. Fever-workup in progress. We will send CSF for culture if fevers persist Nathan Evangelista MD May 08, 2016 19:01
[2016-05-08] MEDS ORDERED: VANCOMYCIN INJ 1,100 MG in SODIUM CHLOR 0.9% 250 ML INJ 250 ML IV ONE (22:30)
[2016-05-08] MEDS: AZTREONAM INJ 1,000 MG in SODIUM CHLORIDE 0.9% INJ 100 ML IV SCH (22:56)
[2016-05-08] MEDS: 3% SALINE INJ 500 ML IV SCH (23:55)
[2016-05-09] VITALS (17 sets, daily range): BP systolic 108–168; BP diastolic 40–54; PULSE 72–87; RESP 22–25; TEMP 100.9–103.1; O2SAT 100
[2016-05-09] MEDS: LABETALOL HCL 100 MG/20 ML VIAL IVS PRN ×5 (02:49→23:10)
[2016-05-09] MEDS: ACETAMINOPHEN 1000 MG/100 ML VIAL IV SCH ×5 (02:49→20:01)
[2016-05-09] MEDS: PROPOFOL 1000 MG/100 ML INJ 100 ML IV SCH (02:49)
[2016-05-09] MEDS ORDERED: EPINEPHrine HCL (1:10,000) 1 MG/10 ML SYRINGE ONE ×2 (03:17→22:56)
[2016-05-09] MEDS ORDERED: LIDOCAINE HCL 2% 100 MG/5 ML SYRINGE ONE ×2 (03:17→22:56)
[2016-05-09] MEDS ORDERED: ATROPINE SULFATE 1 MG/10 ML SYRINGE ONE ×2 (03:18→22:56)
[2016-05-09] MEDS: INSULIN ASPART SUPPLEMENTAL SCALE SQ SCH ×5 (04:00→20:00)
[2016-05-09] MEDS: CHLORHEXIDINE GLUCONATE 2 % 1 PACK (2 CLOTHS) TOP SCH (04:00)
--- NOTE | 2016-05-09 04:02 | RADRPT ---
EXAM DATE/TIME: 05/09/2016 03:31 [facility] COMPARISON: CT BRAIN W/O CONTRAST, May 05, 2016, 16:49. INDICATIONS : Intracranial hemorrhage, pupil change. RADIATION DOSE: 53.85 CTDIvol (mGy) MEDICAL HISTORY : Cardiovascular disease. Hypertension. Lupus.CVA. SURGICAL HISTORY : Hysterectomy. Craniotomy. ENCOUNTER: Subsequent ACUITY: 3 days PAIN SCALE: Non-responsive LOCATION: cranial TECHNIQUE: Multiple contiguous axial images were obtained of the head. Using automated exposure control and adj ustment of the mA and/or kV according to patient size, radiation dose was kept as low as reasonably a chievable to obtain optimal diagnostic quality images. FINDINGS: There has been occipital craniectomy. There is heterogeneous density within the mesial aspects of the cerebral hemispheres bilaterally likely representing edema and blood products. There is mild mass ef fect on the fourth ventricle. Blood products are present within the third ventricle and layering with in the occipital horns bilaterally. A right frontal ventricular shunt is present with tip in the righ t frontal horn. Ventricles are slightly larger than on the prior study but overall are not enlarged. There is no midline shift. Cerebellar tonsils are at the level of the foramen magnum but no definite herniation is seen. There is generalized cerebral atrophy. Stable encephalomalacia is present a right frontal lobe in the high convexity. There is mucoperiosteal thickening and fluid throughout the paranasal sinuses. CONCLUSION: 1. No significant interval change is appreciated. The ventricles are slightly larger than on the prio r study from 4 days ago but overall there is no ventriculomegaly. No herniation or midline shift is p resent. 2. Stable posterior fossa changes including occipital craniectomy with edema and blood products withi n the cerebellum and blood products within the ventricular system. 3. Fluid and mucoperiosteal thickening throughout the paranasal sinuses. This may be related to the i ntubation. Haim Moy MD on May 09, 2016 at 3:56 Board Certified Radiologist. This report was verified electronically.
[2016-05-09] MEDS ORDERED: ACETAMINOPHEN 1000 MG/100 ML VIAL IV ONE (04:15)
[2016-05-09] MEDS: LABETALOL HCL 200 MG TAB PO SCH ×3 (05:24→22:00)
[2016-05-09 05:53] LABS: HEMATOCRIT 22.8 % (35.0-46.0); MEAN CELL VOLUME 89.1 FL (80.0-100.0); MEAN CORPUSCULAR HEMOGLOBIN 28.6 PG (27.0-34.0); MEAN CORPUSCULAR HGB CONC 32.1 % (32.0-36.0); PLATELET COUNT 185 TH/MM3 (150-450); RED BLOOD COUNT 2.56 MIL/MM3 (4.00-5.30); RED CELL DISTRIBUTION WIDTH 15.2 % (11.6-17.2); REVIEW FLAG FINAL
[2016-05-09 05:56] LABS: ALT (GPT) 86 U/L (10-53); ANION GAP 9 MEQ/L (5-15); AST (GOT) 115 U/L (15-37); BICARBONATE 20.8 MEQ/L (21.0-32.0); BLOOD UREA NITROGEN 56 MG/DL (7-18); CHLORIDE 125 MEQ/L (98-107); GLOMERULAR FILTRATION RATE 40 ML/MIN (>89); MAGNESIUM 2.7 MG/DL (1.5-2.5); POTASSIUM 4.6 MEQ/L (3.5-5.1); SODIUM (NA) 155 MEQ/L (136-145)
[2016-05-09 05:58] LABS: ALKALINE PHOSPHATASE 75 U/L (45-117); TOTAL BILIRUBIN ADULT 0.3 MG/DL (0.2-1.0)
[2016-05-09] MEDS ORDERED: LABETALOL HCL 200 MG TAB TUBE ONE (06:00)
[2016-05-09] MEDS: AZTREONAM INJ 1,000 MG in SODIUM CHLORIDE 0.9% INJ 100 ML IV SCH ×3 (06:01→23:07)
--- NOTE | 2016-05-09 06:42 | RADRPT ---
EXAM DATE/TIME: 05/09/2016 05:56 [facility] COMPARISON: CHEST SINGLE AP, May 08, 2016, 4:21. INDICATIONS : Shortness of breath, possible pulmonary disease. MEDICAL HISTORY : Hypertension. Chronic obstructive pulmonary disease. SURGICAL HISTORY : None. ENCOUNTER: Subsequent ACUITY: 1 week PAIN SCORE: Non-responsive. LOCATION: Bilateral chest FINDINGS: Portable AP view of the chest demonstrates a normal-sized cardiac silhouette. ETT, and NG tube, and l eft IJ central line remain present. Lungs are underinflated there is stable right basilar pleural-par enchymal opacity. No pneumothorax is visualized. CONCLUSION: Stable chest x-ray with right basilar opacity characteristic of effusion with associated volume loss and/or consolidation. Haim Moy MD on May 09, 2016 at 6:40 Board Certified Radiologist. This report was verified electronically.
[2016-05-09] MEDS: INSULIN DETEMIR 100 UNITS/ML VIAL SQ SCH ×2 (07:53→20:02)
[2016-05-09] MEDS: FAMOTIDINE 20 MG TAB PO SCH ×2 (07:54→20:01)
[2016-05-09] MEDS: ARTIFICIAL TEARS OPTH SOLN 15 ML BTL EACH EYE SCH ×3 (07:54→17:14)
[2016-05-09] MEDS: DOCUSATE SODIUM 50 MG/SENNA 8.6 MG TAB PO SCH ×2 (07:56→20:02)
[2016-05-09] MEDS: SODIUM CHLORIDE 0.9% FLUSH 5 ML FLUSH IVF SCH ×2 (07:56→19:40)
[2016-05-09] MEDS: POLYETHYLENE GLYCOL 17 GM PKG PO SCH ×2 (07:56→20:02)
[2016-05-09] MEDS: LACTULOSE SYRUP 20 GM/30 ML CUP PO SCH ×2 (07:56→20:02)
[2016-05-09] MEDS: BISACODYL 10 MG SUPP RECTAL SCH (07:56)
--- NOTE | 2016-05-09 09:47 | HHI.CCPN ---
Subjective Remarks/Hospital Course 05/03: 65 years old female was brought in by EMS for stroke alert. Patient has history of multiple strokes in the past. Patient has residual left-sided weakness from the strokes. Patient has an Antiphospholipid syndrome and is on Coumadin. Patient was sitting down watching TV with her then patient started became more unresponsive, having aphasia, nausea vomiting, dizziness, increasing left-sided weakness. EMS was called. Patient was brought to ED stroke alert. CT head revealed large posterior fossa ICH. 05/04: Remains sedated, orally intubated on mechanical ventilation. Underwent suboccipital decompression on 05/03. Ventriculostomy in place. ICPs below 10. Drained 150 cc CSF overnight 05/05: acutely this afternoon, her SBP increased from 150s to 200s. neuro exam unchanged, remains sedated on propofol without sedation vacation today per nsgy. pupillary exam unchanged, 2mm equal, reactive. required labetalol 60mg iv , esmolol 150mcg/kg/min, and cardene 15mg/hr to bring back down to goal SBP 150s. EVD still at 0 per nsgy. ICP in lateral ventricles 1. 05/06: severely hypertensive and febrile. re-cultured overnight. sputum growing GNR. 05/07: Patient remains hypertensive currently on nicardipine and esmolol infusions. Instructions given to titrated up nicardipine, start Norvasc 5 mg daily. Sputum culture with pansensitive Klebsiella. at the bedside updated 05/08: No improvement in neuro status. Continues to spike fever 103.3 MAXIMUM TEMPERATURE. Off nicardipine and esmolol. We'll start scheduled Tylenol and cooling blanket. repeat bruce culture 05/09: Continues to have persistent fever MAXIMUM TEMPERATURE 102, white count remains at 16,000. ID consulted also have ordered a lipase, US liver, venous ultrasound of all extremities. I will also change the central line, and give single dose of vancomycin Objective Vital Signs Date Time Temp Pulse Resp B/P Pulse Ox O2 Delivery O2 Flow Rate FiO2 05/09/16 04:39 22 05/09/16 04:39 100 40 05/09/16 04:00 101.6 86 134/50 Intake and Output 05/08/16 05/08/16 05/09/16 08:00 16:00 00:00 Intake Total 1572 ml 1954 ml 1311 ml Output Total 672.0 ml 794.0 ml 742.0 ml Balance 900.0 ml 1160.0 ml 569.0 ml Result Diagram: 05/09/16 0530 05/09/16 0530 Other Results Laboratory Tests Test 05/08/16 10:12 Blood Gas Puncture Site ART LINE Blood Gas Patient Temperature 98.6 Blood Gas HCO3 18 mmol/L (22-26) Blood Gas Base Excess -6.3 mmol/L (-2-2) Blood Gas Oxygen Saturation 96 % (90-100) Arterial Blood pH 7.38 (7.380-7.420) Arterial Blood Partial 31 mmHg (38-42) Pressure CO2 Arterial Blood Partial 119 mmHg Pressure O2 (61-120) Arterial Blood Oxygen Content 10.9 Vol % (12.0-20.0) Arterial Blood 1.5 % (0-4) Carboxyhemoglobin Arterial Blood Methemoglobin 1.1 % (0-2) Blood Gas Hemoglobin 7.9 G/DL (12.0-16.0) Oxygen Delivery Device VENTILATOR Blood Gas Ventilator Setting PRVC 22/500/1.0IT/5+ Blood Gas Inspired Oxygen 40 % Imaging Last [address] 05/03/16 0000 Signed Impressions: Service Date/Time: Tuesday, May 03, 2016 01:18 - CONCLUSION: Large acute posterior fossa hemorrhage. There is also blood in the fourth and third ventricles. Report was called to Dr. Rodrigues at 1:30 AM. Haim Anaya MD Chest X-Ray 05/03/16 0000 Signed Impressions: Service Date/Time: Tuesday, May 03, 2016 01:53 - CONCLUSION: 1. Endotracheal tube tip is about 1.5 cm above the luis antonio. 2. Nasogastric tube courses into the stomach. 3. Lungs reasonably clear. Haim Anaya MD Objective Remarks HEENT/ Neuro: Sedated, orally intubated, Pallor present, no icterus, tongue/ mucosa moist. Pupils R 3mm L 2 mm, reactive to light. Ventriculostomy in place at 0. Withdraws bilateral lower extremities to pain Neck: No JVD Chest/Pulm: on mech vent, good air entry bilaterally, no wheezing or crackles CVS: S1-S2 regular, no murmur GI/abdomen: soft, nontender, bowel sounds sluggish Extremities: warm bilaterally, no edema A/P Problem List: (1) Intracranial hemorrhage ICD Code: I62.9 Status: Acute (2) Respiratory failure with hypoxia ICD Code: J96.91 Status: Acute (3) Hypertension ICD Code: I10 Status: Acute (4) Atrial fibrillation ICD Code: I48.91 Status: Acute (5) Coagulopathy ICD Code: D68.9 Status: Acute (6) Diabetes ICD Code: E11.9 Status: Acute Assessment and Plan Acute hypoxic and hypercarbic Respiratory failure - intubated for airway protection, continue mechanical ventilation - end tidal Co2 - no weaning until neurologically improved, BP better controlled Intracranial hemorrhagic stroke - s/p posterior decompression on 05/04 - 3% NS -will hold as Na is 155 - EVD, monitor ICP. Keppra for seizure prophylaxis. Neurosurgery following - Off cardene and esmolol for goal SBP < 160, - Scheduled Tylenol for fever Coagulopathy - reversed Coumadin with Vit K, FFP and Kcentra - Follow INR Hypertension - Off Cardene gtt, esmolol gtt. - Continue labetalol 300mg po q8h, iNorvasc to 10 mg daily - Hydralazine 20mg iv q20min and labetalol 20mg iv q1h to help get off drips. - Metoprolol 5mg iv q4h prn for HR > 100. - SBP goal < 150 DM -Levemir to 50 units [id number]. High-dose sliding scale insulin. A.Fib - rate controlled - Lopressor i.v. labetalol GI - tube feeds with Glucerna at goal as tolerated. - Bowel regimen, having BMs ID Persistent fever/leukocytosis - Leukocytosis noted. bruce cultured. Continue cefepime and Flagyl. Single dose of vanc. consult ID - Pansensitive Klebsiella in sputum. patient had witnessed aspiration event in OR per nursing report. - Also checking lipase, liver ultrasound, US upper and lower extremities - Change central line today DVT/GI prophylaxis - TEDs/SCDs/Pepcid Critical Care: The total critical care time was 40 minutes. Time to perform other separately billable procedures was not included in the critical care time. Problem Qualifiers (1) Respiratory failure with hypoxia: Qualified Code: J96.01 - Acute respiratory failure with hypoxia Deidre Whitmore MD May 09, 2016 09:47
[2016-05-09] MEDS ORDERED: VANCOMYCIN INJ 1,250 MG in SODIUM CHLOR 0.9% 250 ML INJ 250 ML IV ONE (11:00)
--- NOTE | 2016-05-09 11:19 | PD.PROCEDR ---
Central Line Procedure REASON FOR PROCEDURE Central venous access PROCEDURE PERFORMED Central line placement: R subclavian central line CONSENT Informed consent for procedure was obtained and time out performed. The risks and benefits of the procedure were discussed to include but limited to bleeding , clot formation, infection, and even . ANESTHESIA Local injection of 1% Lidocaine DESCRIPTION OF THE PROCEDURE The patient was placed in supine, mild Trendelenburg position. The area was exposed and cleansed with ChloraPrep, times two. Large sterile drape was used to cover the patient, with the site exposed, under sterile conditions including cap, face mask, sterile gown, and sterile gloves. On single attempt, the introducer needle was inserted with negative pressure in syringe and venous flash was obtained. The guide wire was then advanced without any restriction and the needle was removed. The dilator was used without any complications. Using Seldinger technique the 20 cm 7F triple lumen catheter was advanced over the guide wire to a depth of 18 centimeters. The guide wire was removed. All ports were aspirated with dark venous blood return and flushed easily with sterile saline. All ports were capped. Antibiotic disc was placed around central line at puncture site. The central line was secured to the skin with two interrupted 2.0 silk sutures. The area was bandaged with sterile see- through central line bandage. COMPLICATIONS: No apparent complications ESTIMATED BLOOD LOSS: Less than 1 cc. Deidre Whitmore MD May 09, 2016 11:19
[2016-05-09] MEDS ORDERED: DIATRIZOATE MEGLUM/DIATRIZOATE SOD 9 ML CUP PO ONE (12:00)
--- NOTE | 2016-05-09 12:06 | RADRPT ---
EXAM DATE/TIME: 05/09/2016 11:20 [facility] COMPARISON: CHEST SINGLE AP, May 09, 2016, 5:56. INDICATIONS : Central Line Placement. MEDICAL HISTORY : Cardiovascular disease. Hypertension. Lupus. CVA. SURGICAL HISTORY : Hysterectomy. Craniotomy. ENCOUNTER: Initial ACUITY: 1 day PAIN SCORE: Non-responsive. LOCATION: Bilateral chest FINDINGS: A single view of the chest demonstrates the lungs to be symmetrically aerated without evidence of mas s, infiltrate or effusion. Endotracheal tube and left jugular central line are stable. Right subclavi an central line with tip in the SVC and no pneumothorax. The cardiomediastinal contours are unremarka ble. Osseous structures are intact. CONCLUSION: Pedicle placement of right subclavian central line. Santana Mena MD on May 09, 2016 at 12:02 Board Certified Radiologist. This report was verified electronically.
--- NOTE | 2016-05-09 13:05 | RADRPT ---
EXAM DATE/TIME: 05/09/2016 11:54 [facility] COMPARISON: No previous studies available for comparison. INDICATIONS : Bilateral arm swelling. MEDICAL HISTORY : Hypercholesterolemia. Gastroesophageal reflux disease. Renal calculi. Cerebrovascular accident. Mig[place] sav[place]. Concussions. Anticoagulant therapy. Chronic obstructive pulmonary disease. Hiatal hernia. Hypert ention. Arthritis. Back pain. Diabetes. Clotting disorder. Skin cancer. Measles. SURGICAL HISTORY : Appendectomy.Cholecystectomy. Tonsillectomy.Hysterectomy. Renal stent. Lithotripsy. Skin grafts. ENCOUNTER: Subsequent ACUITY: 1 day PAIN SCORE: Non-responsive LOCATION: Bilateral arms. FINDINGS: RIGHT UPPER EXTREMITY: There is spontaneous flow documented in the brachial, basilic, cephalic, axillary, and subclavian vei ns. The vessels are compressible and augmentation response is documented. No filling defects are se en. The flow is phasic with respiration. Direction of flow in the jugular vein is caudal. LEFT UPPER EXTREMITY: There is spontaneous flow documented in the brachial, basilic, cephalic, axillary, and subclavian vei ns. The vessels are compressible and augmentation response is documented. No filling defects are se en. The flow is phasic with respiration. Direction of flow in the jugular vein is caudal. CONCLUSION: No DVT in either arm. Santana Mena MD on May 09, 2016 at 13:03 Board Certified Radiologist. This report was verified electronically.
--- NOTE | 2016-05-09 13:05 | RADRPT ---
EXAM DATE/TIME: 05/09/2016 11:29 [facility] COMPARISON: No previous studies available for comparison. INDICATIONS : Bilateral leg swelling. MEDICAL HISTORY : Hypercholesterolemia. Gastroesophageal reflux disease. Renal calculi. Cerebrovascular accident. Mig[place] sav[place]. Concussions. Anticoagulant therapy. Chronic obstructive pulmonary disease. Hiatal hernia. Hypert ention. Arthritis. Back pain. Diabetes. Clotting disorder. Skin cancer. Measles. SURGICAL HISTORY : Tonsillectomy.Cholecystectomy. Appendectomy.Hysterectomy. Renal stent. Lithotripsy. Skin grafts. ENCOUNTER: Initial ACUITY: 1 day PAIN SCORE: Non-responsive LOCATION: Bilateral legs. TECHNIQUE: Venous ultrasound of the left and right leg was performed from the inguinal ligament to the proximal calf. Real-time, color Doppler and spectral tracing, compression and augmentation techniques were us ed. FINDINGS: RIGHT LEG: There is normal compressibility of the deep venous system from the inguinal region to the proximal ca lf. No echogenic clot is seen in the lumen of the common femoral, femoral, popliteal, and posterior tibial veins. There is a normal response of the venous system to proximal and distal augmentation an d respiration. LEFT LEG: There is normal compressibility of the deep venous system from the inguinal region to the proximal ca lf. No echogenic clot is seen in the lumen of the common femoral, femoral, popliteal, and posterior tibial veins. There is a normal response of the venous system to proximal and distal augmentation an d respiration. CONCLUSION: No DVT in either leg. Santana Mena MD on May 09, 2016 at 13:03 Board Certified Radiologist. This report was verified electronically.
--- NOTE | 2016-05-09 13:29 | HHI.NSPN ---
History Chief Complaint: intubated Interval History 65-year-old female postop suboccipital craniectomy and evacuation cerebellar intracranial hemorrhage, ventriculostomy placement. Exam Results Vital Signs Date Time Temp Pulse Resp B/P Pulse Ox O2 Delivery O2 Flow Rate FiO2 05/09/16 12:38 100 40 05/09/16 04:39 22 05/09/16 04:00 101.6 86 134/50 Intake and Output 05/08/16 05/08/16 05/09/16 08:00 16:00 00:00 Intake Total 1572 ml 1954 ml 1311 ml Output Total 672.0 ml 794.0 ml 742.0 ml Balance 900.0 ml 1160.0 ml 569.0 ml Physical Examination Ms. Spann is intubated and well sedated. Right EVD in place at 0 cm H20, CSF xanthochromic. ICPs= 5-8 Wound with clean dressing Cranial Nerves: Pupils 3 mm bilateral, reactive to light. Mild disconjugate oculocephalic responses with right gaze preference No eye opening spontaneous, to voice, or deep pain Sensorimotor: muscle tone and bulk are normal. No response deep pain upper extremities, mild withdrawal deep pain lower extremities Reflexes: Plantars silent b/l Cerebellar: unable to assess Diffuse extremity swelling. Lab, Micro, Other Results Laboratory Tests Test 05/08/16 05/09/16 05/09/16 15:46 00:30 05:30 Sodium Level 153 MEQ/L 155 MEQ/L 155 MEQ/L Potassium Level 5.0 MEQ/L 4.6 MEQ/L Chloride Level 123 MEQ/L 125 MEQ/L Carbon Dioxide Level 20.5 MEQ/L 20.8 MEQ/L Anion Gap 10 MEQ/L 9 MEQ/L Blood Urea Nitrogen 51 MG/DL 56 MG/DL Creatinine 1.66 MG/DL 1.34 MG/DL Estimat Glomerular Filtration 31 ML/MIN 40 ML/MIN Rate Random Glucose 163 MG/DL 120 MG/DL Calcium Level 8.1 MG/DL 8.4 MG/DL Total Bilirubin 0.3 MG/DL 0.3 MG/DL Aspartate Amino Transf 75 U/L 115 U/L (AST/SGOT) Alanine Aminotransferase 55 U/L 86 U/L (ALT/SGPT) Alkaline Phosphatase 76 U/L 75 U/L Total Protein 5.5 GM/DL 5.4 GM/DL Albumin 1.9 GM/DL 1.8 GM/DL White Blood Count 16.0 TH/MM3 Red Blood Count 2.56 MIL/MM3 Hemoglobin 7.3 GM/DL Hematocrit 22.8 % Mean Corpuscular Volume 89.1 FL Mean Corpuscular Hemoglobin 28.6 PG Mean Corpuscular Hemoglobin 32.1 % Concent Red Cell Distribution Width 15.2 % Platelet Count 185 TH/MM3 Mean Platelet Volume 10.8 FL Magnesium Level 2.7 MG/DL Lipase 2300 U/L Medical Decision Making Impression and Plan Impression: 1. Stable neurologic function following suboccipital craniectomy, evacuation cerebellar intracranial hemorrhage. Plan: 1. Continue external ventricular drain. 2. Fever-workup in progress. We will send CSF for culture today 3. Monitor sodium-avoid excessive hypernatremia Nathan Evangelista MD May 09, 2016 13:29
[2016-05-09] MEDS: levETIRAcetam INJ 500 MG in SODIUM CHLORIDE 0.9% INJ 100 ML IV SCH (13:56)
[2016-05-09] MEDS: hydrALAZINE HCL 20 MG/ML VIAL IV PUSH PRN ×3 (13:57→23:57)
[2016-05-09] MEDS ORDERED: Vancomycin Consult Pharmacy 1 EA OTHER SCH (14:45)
[2016-05-09] MEDS ORDERED: MIDAZOLAM HCL 2 MG/2 ML VIAL IV ONE (15:30)
[2016-05-09 16:28] LABS: CSF LYMPHOCYTES 25 %; CSF MONOCYTES 6 %; CSF NEUTROPHILS 62 %; GROSS BLOOD TUBE #1 2+ (0); SUPERNATE COLOR TUBE #1 HEMOLYZED (CLEAR); WBC TUBE #1 34 /MM3 (0-10)
[2016-05-09] MEDS: DEXTROSE 50% IN WATER 50 ML VIAL(D50) IV PRN ×4 (16:35→20:21)
--- NOTE | 2016-05-09 16:38 | MB ---
cc: JASPREET RUEDA MD DATE OF CONSULTATION 05/09/[address] Whitmore. REASON FOR CONSULTATION Persistent high fever and leukocytosis. HISTORY OF PRESENT ILLNESS This is a 65-year-old white female who was admitted with cerebellar intracranial hemorrhage. The patient was admitted on 05/03/2016 as a stroke alert. She has a history of multiple strokes in the past. The patient became suddenly unresponsive while watching TV at home and EMS was called. She was brought to the emergency department. She underwent right frontal arash hole placement of a ventriculostomy catheter and also suboccipital craniectomy and evacuation of cerebral hemorrhage and duraplasty. The patient is currently on the ventilator. She started having temperature spike on 05/04 and the temperature has been persistently elevated over the past 2-3 days with maximum temperature of 103.1 degrees yesterday evening, and this morning her temperature was still elevated up to 101.6 degrees. Her white count is also elevated and has been elevated since admission. The patient is having fevers despite antibiotic treatment. Prior cultures indicated Klebsiella pneumonia on 05/04/2016 sputum. Repeat cultures have been sent including blood, sputum and urine culture. The urine culture has no growth in 24 hours. The patient had a left central line in place and a new right central line has been inserted but the left has not yet been removed and will be removed shortly. She is unresponsive on the ventilator. IMAGING Chest x-ray shows right basilar opacity. The head CT shows stable posterior fossa changes including occipital craniectomy with edema and blood products within the cerebellum, and also blood product within the ventricular system. Fluid and mucoperiosteal thickening throughout the paranasal sinuses was also noted. The CSF on 05/03 revealed 395 white cells and 34,225 red cells and 90% neutrophils. CSF culture on admission had no growth. Evaluation for DVT of the upper extremities was negative. PAST MEDICAL HISTORY 1. Hypertension. 2. Atrial fibrillation. 3. Diabetes mellitus. 4. Antiphospholipid syndrome. 5. Cerebrovascular accident. 6. Cholecystectomy. 7. Total hysterectomy. 8. Kidney stones. ALLERGIES LATEX AND ROCEPHIN. MEDICATIONS 1. Aztreonam. 2. Vancomycin. 3. Acetaminophen. 4. Levemir. 5. Pepcid. 6. Levaquin. 7. Nicardipine. SOCIAL HISTORY Positive tobacco use. Unable to verify alcohol use at this time. Unable to verify substance abuse at this time. FAMILY HISTORY Unable to obtain. REVIEW OF SYSTEMS Unable to obtain. PHYSICAL EXAMINATION GENERAL: This is a moderately obese female who is on the ventilator and sedated, unresponsive. VITAL SIGNS: Include a temperature of 101.6, blood pressure 135/45, heart rate 78, respirations per the ventilator. HEENT: Unable to fully assess. She is intubated. The mucosa of the oropharynx appears moist. NECK: No swelling visible. Trachea appears midline. LUNGS: Have diminished breath sounds throughout. HEART: Regular without any rubs or murmurs. ABDOMEN: Obese. Soft. Decreased bowel sounds. No tenderness appreciated. RECTAL: Not performed. EXTREMITIES: No clubbing or cyanosis. Trace edema of the extremities. SKIN: No rash. NEUROLOGICAL: Unable to fully assess. PSYCHIATRIC: Unable to fully assess. LABORATORY DATA WBC 16.0, platelet count 185,000, hemoglobin 7.3. Sodium 155, creatinine 1.34, BUN 56, estimated GFR 40, AST 115, ALT 86. IMPRESSION 1. Persistent fever. Possible secondary to pulmonary infection versus sepsis versus central nervous system injury and possibly central fever. 2. Leukocytosis. 3. Cerebellar intracranial hemorrhage. 4. Acute respiratory failure. 5. Previous pneumonia due to Klebsiella. 6. Acute kidney disease. RECOMMENDATIONS 1. Continue aztreonam. 2. Continue vancomycin. We will request pharmacy assistance for administration. 3. Continue Levaquin. 4. Monitor blood cultures. 5. Monitor sputum culture. 6. Monitor temperature and white blood cell count. Thank you for this consultation. The patient's progress will monitored and further recommendations will be given on followup. Jaspreet Rueda MD FD/AMOS /2:23 PM /4:11 PM
[2016-05-09] MEDS: MIDAZOLAM 100 MG/ML INJ 100 ML IV SCH (17:13)
--- NOTE | 2016-05-09 17:27 | PD.CONS ---
HPI History of Present Illness This is a 65 year old female whom we are asked to evaluate for elevated lipase. Currently patient is intubated and unresponsive and semi-information was obtained from chart review She was admitted with stroke alert and was found to have intracranial hemorrhage she apparently began to have a temperature and further evaluation revealed elevated lipase on blood work and a CAT scan has been ordered of the abdomen Patient is being seen by us several specialists [facility], [facility] Past Medical History PAST MEDICAL HISTORY 1. Hypertension. 2. Atrial fibrillation. 3. Diabetes mellitus. 4. Antiphospholipid syndrome. 5. Cerebrovascular accident. Past Surgical History 1. Cholecystectomy. 2. Total hysterectomy. 3. Kidney stones. Coded Allergies: Rocephin (Verified Allergy, Severe, HIVES, 05/03/16) Latex (Verified Allergy, Intermediate, Rash, 05/03/16) Medications 1. Aztreonam. 2. Vancomycin. 3. Acetaminophen. 4. Levemir. 5. Pepcid. 6. Levaquin. 7. Nicardipine. Family History Unobtainable Social History Positive tobacco use. Unable to verify alcohol use at this time. Review of Systems ROS Unable to obtain review of systems due to clinical condition GI Exam Vitals I&O Vital Signs Date Time Temp Pulse Resp B/P Pulse Ox O2 Delivery O2 Flow Rate FiO2 05/09/16 16:00 40 05/09/16 16:00 72 05/09/16 16:00 103.1 72 24 108/40 100 05/09/16 14:00 84 05/09/16 12:38 100 40 05/09/16 12:33 100 40 05/09/16 12:00 84 05/09/16 12:00 40 05/09/16 12:00 101.2 84 24 159/53 100 05/09/16 10:00 83 05/09/16 08:00 102.4 83 24 168/51 100 05/09/16 08:00 40 05/09/16 08:00 81 05/09/16 04:39 22 05/09/16 04:39 100 40 05/09/16 04:00 40 05/09/16 04:00 101.6 86 25 134/50 100 05/09/16 03:50 100 100 05/09/16 00:34 100 40 05/09/16 00:00 40 05/09/16 00:00 100.9 86 22 164/54 100 2/4/17 20:56 22 05/08/16 20:43 99 40 05/08/16 20:00 89 05/08/16 20:00 40 05/08/16 20:00 102.2 82 23 146/52 100 05/08/16 18:00 89 05/08/16 18:00 103.1 I/O 05/08/16 05/08/16 05/08/16 05/09/16 05/09/16 05/09/16 07:00 15:00 23:00 07:00 15:00 23:00 Intake Total 1572 ml 1954 ml 1311 ml 1299 ml 1906 ml Output Total 672 ml 794 ml 742 ml 1036 ml 1086 ml Balance 900 ml 1160 ml 569 ml 263 ml 820 ml Intake IV Total 880 ml 1344 ml 722 ml 1042 ml 866 ml Tube Feeding 472 ml 610 ml 529 ml 197 ml 1040 ml Lipid 70 ml Tube Irrigant 150 ml 60 ml 60 ml Output Urine Total 625 ml 750 ml 650 ml 950 ml 1000 ml Tube Feeding Residual Discard 0 ml 0 ml 0 ml 0 ml Drainage Total 47 ml 44 ml 92 ml 86 ml 86 ml # Bowel Movements 1 1 0 1 2 Imaging Last Impressions Chest X-Ray 05/09/16 0600 Signed Impressions: Service Date/Time: Monday, May 09, 2016 05:56 - CONCLUSION: Stable chest x-ray with right basilar opacity characteristic of effusion with associated volume loss and/or consolidation. Haim Moy MD Head CT 05/09/16 0315 Signed Impressions: Service Date/Time: Monday, May 09, 2016 03:31 - CONCLUSION: 1. No significant interval change is appreciated. The ventricles are slightly larger than on the prior study from 4 days ago but overall there is no ventriculomegaly. No herniation or midline shift is present. 2. Stable posterior fossa changes including occipital craniectomy with edema and blood products within the cerebellum and blood products within the ventricular system. 3. Fluid and mucoperiosteal thickening throughout the paranasal sinuses. This may be related to the intubation. Haim Moy MD Upper Extremity Ultrasound 05/09/16 0000 Signed Impressions: Service Date/Time: Monday, May 09, 2016 11:54 - CONCLUSION: No DVT in either arm. Santana Mena MD Lower Extremity Ultrasound 05/09/16 0000 Signed Impressions: Service Date/Time: Monday, May 09, 2016 11:29 - CONCLUSION: No DVT in either leg. Santana Mena MD Laboratory Test 05/09/16 05/09/16 05/09/16 00:30 05:30 11:05 Sodium Level 155 MEQ/L 155 MEQ/L White Blood Count 16.0 TH/MM3 Red Blood Count 2.56 MIL/MM3 Hemoglobin 7.3 GM/DL Hematocrit 22.8 % Mean Corpuscular Volume 89.1 FL Mean Corpuscular Hemoglobin 28.6 PG Mean Corpuscular Hemoglobin 32.1 % Concent Red Cell Distribution Width 15.2 % Platelet Count 185 TH/MM3 Mean Platelet Volume 10.8 FL Potassium Level 4.6 MEQ/L Chloride Level 125 MEQ/L Carbon Dioxide Level 20.8 MEQ/L Anion Gap 9 MEQ/L Blood Urea Nitrogen 56 MG/DL Creatinine 1.34 MG/DL Estimat Glomerular Filtration 40 ML/MIN Rate Random Glucose 120 MG/DL Calcium Level 8.4 MG/DL Magnesium Level 2.7 MG/DL Total Bilirubin 0.3 MG/DL Aspartate Amino Transf 115 U/L (AST/SGOT) Alanine Aminotransferase 86 U/L (ALT/SGPT) Alkaline Phosphatase 75 U/L Total Protein 5.4 GM/DL Albumin 1.8 GM/DL Lipase 2300 U/L CSF Volume (Tube 1) 4.0 ML CSF Supernatant Color (tube 1) HEMOLYZED CSF Gross Blood (Tube 1) 2+ CSF WBC (Tube 1) 34 /MM3 CSF RBC (Tube 1) 3551 /MM3 CSF Neutrophils 62 % CSF Lymphocytes 25 % CSF Monocytes 6 % CSF Histiocytes 7 % Date/Time Procedure Status Source Growth 05/09/16 11:05 Gram Stain - Final Resulted Cerebral Spinal Fluid Shunt Fluid 05/09/16 11:05 CSF Culture Resulted Cerebral Spinal Fluid Shunt Fluid Pending 05/09/16 11:05 Fungal Smear Received Cerebral Spinal Fluid Shunt Fluid Pending 05/09/16 11:05 Fungal Culture Received Cerebral Spinal Fluid Shunt Fluid Pending 05/08/16 15:46 Aerobic Blood Culture - Preliminary Resulted Blood Peripheral NO GROWTH IN 1 DAY 05/08/16 15:46 Anaerobic Blood Culture - Preliminary Resulted Blood Peripheral NO GROWTH IN 1 DAY 05/08/16 15:30 Urine Culture - Preliminary Resulted Urine Catheterized Urine NO GROWTH IN 24 HOURS. Physical Examination Obese female intubated unresponsive HEENT: normocephalic; postcraniotomy; no jaundice. Throat is clear. NECK: Neck is supple, no JVD, no lymphadenopathy. CHEST: Chest is clear to auscultation and percussion. CARDIAC: Regular rate and rhythm with no murmur gallop or rubs. ABDOMEN: Soft, nondistended, nontender; no hepatosplenomegaly; bowel sounds are present in all four quadrants. EXTREMITIES: No clubbing, cyanosis, or edema. SKIN: Normal; no rash; no jaundice. 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 Elevated lipase unclear significance possible pancreatitis secondary to current critical condition 2. Leukocytosis. 3. Cerebellar intracranial hemorrhage. 4. Acute respiratory failure. RECOMMENDATIONS 1. Await CT of the abdomen 2. Continue with antibiotics 3. Agree with current supportive measures 4. Recommend hydration 5. Monitor labs Charlie Merida MD May 09, 2016 17:27
[2016-05-09] MEDS: METOPROLOL TARTRATE 5 MG/5 ML VIAL IV PUSH PRN (23:10)
[2016-05-09] MEDS ORDERED: IODIXANOL 320 MG/ML 10 ML VIAL (for RAD SPEC) IV ONE (23:45)
--- NOTE | 2016-05-09 23:54 | RADRPT ---
EXAM DATE/TIME: 05/09/2016 23:37 [facility] COMPARISON: No previous studies available for comparison. INDICATIONS : Pancreatitis. IV CONTRAST: 46 cc Visipaque (iodixanol) IV ORAL CONTRAST: Prescribed oral contrast ingested. RADIATION DOSE: 27.81 CTDIvol (mGy) MEDICAL HISTORY : Hypertension. Lupus. Cardiovascular diseaseCVA. SURGICAL HISTORY : Hysterectomy. Craniotomy. ENCOUNTER: Initial ACUITY: 1 day PAIN SCALE: Non-responsive LOCATION: Bilateral abdomen TECHNIQUE: Volumetric scanning of the abdomen and pelvis was performed. Using automated exposure control and ad justment of the mA and/or kV according to patient size, radiation dose was kept as low as reasonably achievable to obtain optimal diagnostic quality images. FINDINGS: There are bilateral pleural effusions right greater than left. NG tube coiled in the stomach. Mild he patomegaly. Spleen, bilateral adrenal glands are unremarkable. Nonobstructing right lower pole renal calculus measuring 5.9 mm. Nonobstructing left lower pole renal calculus measuring 4 mm. There are ca lcifications at the uncinate process of the pancreas consistent with sequelae of chronic pancreatitis . Mild induration of the peripancreatic fat proximally with a small amount of fluid in the right ante rior pararenal space. The patient is status post cholecystectomy. There is body wall edema diffusely. A temperature probe is noted in the rectum. No evidence of bowel obstruction. Batista catheter within the urinary bladder. Atherosclerotic calcifications of the aorta and iliac vessels are seen. In the m id body of the pancreas, calcifications are seen. There are degenerative changes of the spine, and [place] are present at L3 and L1., CONCLUSION: 1. Body wall edema, hepatomegaly and chronic pancreatitis calcifications are seen as well as mild per ipancreatic edema and fluid consistent with superimposed mild acute pancreatitis. 2. Nonobstructing renal calculi. 3. Bilateral pleural effusions. 4. Atherosclerosis. Cesar Meza MD on May 09, 2016 at 23:49 Board Certified Radiologist. This report was verified electronically.
[2016-05-10] VITALS (21 sets, daily range): BP systolic 104–188; BP diastolic 44–69; PULSE 63–92; RESP 22–25; TEMP 99–102.8; O2SAT 94–100
[2016-05-10] MEDS: LABETALOL HCL 100 MG/20 ML VIAL IVS PRN ×4 (00:35→20:13)
[2016-05-10] MEDS: levETIRAcetam INJ 500 MG in SODIUM CHLORIDE 0.9% INJ 100 ML IV SCH ×2 (00:57→11:30)
[2016-05-10] MEDS: SODIUM CHLORIDE 0.9% FLUSH 5 ML FLUSH IVF PRN (01:48)
[2016-05-10] MEDS: hydrALAZINE HCL 20 MG/ML VIAL IV PUSH PRN (01:48)
[2016-05-10] MEDS: ACETAMINOPHEN 1000 MG/100 ML VIAL IV SCH ×2 (02:18→08:03)
[2016-05-10] MEDS: CHLORHEXIDINE GLUCONATE 2 % 1 PACK (2 CLOTHS) TOP SCH (03:30)
[2016-05-10] MEDS: INSULIN ASPART SUPPLEMENTAL SCALE SQ SCH ×6 (04:00→20:00)
[2016-05-10 04:28] LABS: AUTOMATED NEUTROPHIL # 13.4 TH/MM3 (1.8-7.7); BASOPHIL # 0.1 TH/MM3 (0-0.2); BASOPHIL % 0.7 % (0.0-2.0); EOSINOPHIL # 0.1 TH/MM3 (0-0.4); EOSINOPHIL % 0.4 % (0.0-4.0); HEMATOCRIT 21.4 % (35.0-46.0); LYMPH % 13.3 % (9.0-44.0); LYMPHOCYTE # 2.3 TH/MM3 (1.0-4.8); MEAN CORPUSCULAR HEMOGLOBIN 28.4 PG (27.0-34.0); MEAN CORPUSCULAR HGB CONC 31.6 % (32.0-36.0); MONO % 7.3 % (0.0-8.0); NEUT % 78.3 % (16.0-70.0); PLATELET COUNT 184 TH/MM3 (150-450); RED BLOOD COUNT 2.38 MIL/MM3 (4.00-5.30); RED CELL DISTRIBUTION WIDTH 14.9 % (11.6-17.2); WHITE BLOOD COUNT 17.1 TH/MM3 (4.0-11.0)
[2016-05-10 04:40] LABS: HEMO FLAGS AUTO DIFF
[2016-05-10 04:49] LABS: ANION GAP 10 MEQ/L (5-15); AST (GOT) 138 U/L (15-37); BICARBONATE 20.3 MEQ/L (21.0-32.0); BLOOD UREA NITROGEN 57 MG/DL (7-18); CHLORIDE 123 MEQ/L (98-107); GLOMERULAR FILTRATION RATE 45 ML/MIN (>89); POTASSIUM 4.5 MEQ/L (3.5-5.1); SODIUM (NA) 153 MEQ/L (136-145)
[2016-05-10 04:55] LABS: ALKALINE PHOSPHATASE 72 U/L (45-117); ALT (GPT) 116 U/L (10-53); TOTAL BILIRUBIN ADULT 0.4 MG/DL (0.2-1.0)
--- NOTE | 2016-05-10 05:30 | RADRPT ---
EXAM DATE/TIME: 05/10/2016 05:01 [facility] COMPARISON: CHEST SINGLE AP, May 09, 2016, 11:20. INDICATIONS : Respiratory disease. MEDICAL HISTORY : Hypertension. Cardiovascular disease. Lupus. CVA SURGICAL HISTORY : None. ENCOUNTER: Subsequent ACUITY: 2 days PAIN SCORE: Non-responsive. LOCATION: Bilateral chest FINDINGS: Clear lungs. Endotracheal tube tip 1.5 cm above the luis antonio. Right subclavian line tip overlies the SV C. Enteric tube courses beneath the diaphragm. CONCLUSION: Clear lungs. Cesar Meza MD on May 10, 2016 at 5:28 Board Certified Radiologist. This report was verified electronically.
[2016-05-10] MEDS: LABETALOL HCL 200 MG TAB PO SCH ×4 (06:00→22:00)
[2016-05-10] MEDS: AZTREONAM INJ 1,000 MG in SODIUM CHLORIDE 0.9% INJ 100 ML IV SCH ×3 (06:19→21:46)
[2016-05-10] MEDS: MIDAZOLAM 100 MG/ML INJ 100 ML IV SCH (06:19)
[2016-05-10] MEDS: LACTULOSE SYRUP 20 GM/30 ML CUP PO SCH ×2 (07:31→20:33)
[2016-05-10] MEDS: POLYETHYLENE GLYCOL 17 GM PKG PO SCH ×2 (07:32→20:34)
[2016-05-10] MEDS: DOCUSATE SODIUM 50 MG/SENNA 8.6 MG TAB PO SCH ×2 (07:32→20:34)
[2016-05-10] MEDS: BISACODYL 10 MG SUPP RECTAL SCH (07:32)
[2016-05-10 07:54] LABS: PLATELET ESTIMATE SMEAR NORMAL (NORMAL); PLATELET MORPHOLOGY ENLARGED (NORMAL); SCAN/DIFF AUTO DIFF CONFIRMED
[2016-05-10] MEDS: FAMOTIDINE 20 MG TAB PO SCH ×2 (08:02→20:16)
[2016-05-10] MEDS: ARTIFICIAL TEARS OPTH SOLN 15 ML BTL EACH EYE SCH ×3 (08:03→17:13)
[2016-05-10] MEDS: SODIUM CHLORIDE 0.9% FLUSH 5 ML FLUSH IVF SCH ×2 (08:03→20:13)
[2016-05-10] MEDS: INSULIN DETEMIR 100 UNITS/ML VIAL SQ SCH ×2 (08:04→20:34)
--- NOTE | 2016-05-10 08:44 | HHI.GIFU ---
Subjective Remarks Pt resting in bed, sedated on vent. No obvious active GI bleeding. TF stopped this am after CT revealed pancreatitis. Nurse reports that patient has been having diarrhea- loose brown stool (Jayna Stein) Objective Vitals I&O Vital Signs Date Time Temp Pulse Resp B/P Pulse Ox O2 Delivery O2 Flow Rate FiO2 05/10/16 07:25 100 40 05/10/16 07:25 100 40 05/10/16 06:00 80 05/10/16 04:10 99 40 05/10/16 04:00 102.0 83 22 120/44 99 05/10/16 04:00 83 05/10/16 04:00 40 05/10/16 02:00 92 05/10/16 00:33 100 40 05/10/16 00:32 100 40 05/10/16 00:00 80 05/10/16 00:00 102.8 80 25 160/50 100 05/10/16 00:00 40 05/09/16 23:30 100 100 05/09/16 22:00 77 05/09/16 20:00 80 05/09/16 20:00 103.1 80 24 144/46 100 05/09/16 20:00 40 05/09/16 18:06 100 40 05/09/16 18:00 87 05/09/16 16:00 40 05/09/16 16:00 72 05/09/16 16:00 103.1 72 24 108/40 100 05/09/16 14:00 84 05/09/16 12:38 100 40 05/09/16 12:33 100 40 05/09/16 12:00 84 05/09/16 12:00 40 05/09/16 12:00 101.2 84 24 159/53 100 05/09/16 10:00 83 I/O 05/09/16 05/09/16 05/09/16 05/10/16 05/10/16 05/10/16 07:00 15:00 23:00 07:00 15:00 23:00 Intake Total 1299 ml 1906 ml 405 ml 446 ml Output Total 1036 ml 1086 ml 964 ml 910 ml Balance 263 ml 820 ml -559 ml -464 ml Intake IV Total 1042 ml 866 ml 345 ml 386 ml Tube Feeding 197 ml 1040 ml 0 ml 0 ml Tube Irrigant 60 ml Other 60 ml 60 ml Output Urine Total 950 ml 1000 ml 900 ml 850 ml Tube Feeding Residual Discard 0 ml 0 ml Drainage Total 86 ml 86 ml 64 ml 60 ml # Bowel Movements 1 2 1 2 Laboratory Laboratory Tests Test 05/09/16 05/10/16 11:05 04:06 CSF Volume (Tube 1) 4.0 CSF Supernatant Color (tube 1) HEMOLYZED CSF Gross Blood (Tube 1) 2+ CSF WBC (Tube 1) 34 CSF RBC (Tube 1) 3551 CSF Neutrophils 62 CSF Lymphocytes 25 CSF Monocytes 6 CSF Histiocytes 7 White Blood Count 17.1 Red Blood Count 2.38 Hemoglobin 6.8 Hematocrit 21.4 Mean Corpuscular Volume 90.0 Mean Corpuscular Hemoglobin 28.4 Mean Corpuscular Hemoglobin 31.6 Concent Red Cell Distribution Width 14.9 Platelet Count 184 Mean Platelet Volume 11.0 Neutrophils (%) (Auto) 78.3 Lymphocytes (%) (Auto) 13.3 Monocytes (%) (Auto) 7.3 Eosinophils (%) (Auto) 0.4 Basophils (%) (Auto) 0.7 Neutrophils # (Auto) 13.4 Lymphocytes # (Auto) 2.3 Monocytes # (Auto) 1.3 Eosinophils # (Auto) 0.1 Basophils # (Auto) 0.1 CBC Comment AUTO DIFF Differential Comment AUTO DIFF CONFIRMED Platelet Estimate NORMAL Platelet Morphology Comment ENLARGED Basophilic Stippling MOD Sodium Level 153 Potassium Level 4.5 Chloride Level 123 Carbon Dioxide Level 20.3 Anion Gap 10 Blood Urea Nitrogen 57 Creatinine 1.21 Estimat Glomerular Filtration 45 Rate Random Glucose 91 Calcium Level 8.4 Total Bilirubin 0.4 Aspartate Amino Transf 138 (AST/SGOT) Alanine Aminotransferase 116 (ALT/SGPT) Alkaline Phosphatase 72 Total Protein 5.3 Albumin 1.9 Lipase 1486 Date/Time Procedure Status Source Growth 05/09/16 18:00 Wound Culture Received Catheter Tip Central Venous Line Pending 05/09/16 11:05 Gram Stain - Final Resulted Cerebral Spinal Fluid Shunt Fluid 05/09/16 11:05 CSF Culture Resulted Cerebral Spinal Fluid Shunt Fluid Pending 05/09/16 11:05 Fungal Smear Received Cerebral Spinal Fluid Shunt Fluid Pending 05/09/16 11:05 Fungal Culture Received Cerebral Spinal Fluid Shunt Fluid Pending 05/08/16 15:46 Aerobic Blood Culture - Preliminary Resulted Blood Peripheral NO GROWTH IN 1 DAY 2/4/17 15:46 Anaerobic Blood Culture - Preliminary Resulted Blood Peripheral NO GROWTH IN 1 DAY 05/08/16 15:30 Urine Culture - Preliminary Resulted Urine Catheterized Urine NO GROWTH IN 24 HOURS. Imaging Last Impressions Chest X-Ray 05/10/16 0600 Signed Impressions: Service Date/Time: Tuesday, May 10, 2016 05:01 - CONCLUSION: Clear lungs. Cesar Meza MD Head CT 05/09/16 0315 Signed Impressions: Service Date/Time: Monday, May 09, 2016 03:31 - CONCLUSION: 1. No significant interval change is appreciated. The ventricles are slightly larger than on the prior study from 4 days ago but overall there is no ventriculomegaly. No herniation or midline shift is present. 2. Stable posterior fossa changes including occipital craniectomy with edema and blood products within the cerebellum and blood products within the ventricular system. 3. Fluid and mucoperiosteal thickening throughout the paranasal sinuses. This may be related to the intubation. Haim Moy MD Upper Extremity Ultrasound 05/09/16 0000 Signed Impressions: Service Date/Time: Monday, May 09, 2016 11:54 - CONCLUSION: No DVT in either arm. Santana Mena MD Lower Extremity Ultrasound 05/09/16 0000 Signed Impressions: Service Date/Time: Monday, May 09, 2016 11:29 - CONCLUSION: No DVT in either leg. Santana Mena MD Abdomen/Pelvis CT 05/09/16 0000 Signed Impressions: Service Date/Time: Monday, May 09, 2016 23:37 - CONCLUSION: 1. Body wall edema, hepatomegaly and chronic pancreatitis calcifications are seen as well as mild peripancreatic edema and fluid consistent with superimposed mild acute pancreatitis. 2. Nonobstructing renal calculi. 3. Bilateral pleural effusions. 4. Atherosclerosis. Cesar Meza MD Physical Exam HEENT: Ventriculostomy CHEST: CTA, OETT to vent. CARDIAC: RRR ABDOMEN: Soft, nondistended, nontender; no hepatosplenomegaly; bowel sounds are present in all four quadrants. OGT- aspirated yellowish bile from NGT. Brown liquid stool. EXTREMITIES: Generalized edema. SKIN: Generalized pallor ICE CREAM CHEF: Sedated on vent (Jayna Stein) Assessment and Plan Plan ASSESSMENT: - Acute on chronic pancreatitis. Abdomen/Pelvis CT (05/09/16)----> 1. Body wall edema, hepatomegaly and chronic pancreatitis calcifications are seen as well as mild peripancreatic edema and fluid consistent with superimposed mild acute pancreatitis. 2. Nonobstructing renal calculi. 3. Bilateral pleural effusions. 4. Atherosclerosis. She is on Albiglutide at home, which can cause pancreatitis- although she seems to have evidence of chronic pancreatitis on CT imaging. She does have a hx of lupus and some questionable hx of colitis, raising the possibility of autoimmune pancreatitis. Will check ASMA, IgG 4 level. Will have nurse place Dobhoff for post pyloric feedings. Monitor. - Leukocytosis. WBC 17.1. - Anemia, with Hgb trending down. 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 Then had EGD/colonoscopy (03/15/15)---> no evidence of upper bleed, colonoscopy revealed active bleeding through out the colon with poor visualization. S/P bleed scan (03/14/15) positive potentially duodenal. S/P Angiogram of GDA , right colic, ileocolic, and SMA (03/14/15)----> No evidence of active GI bleed. Rpt. Colonoscopy (03/17/15)---> Colonic polyp, rectal ulcer, indurated area in ascending colon biopsied. Pathology of rectum with features suspicious for quiescent chronic colitis, cecal biopsy with focal adenomatous change with severe glandular dysplasia and features consistent with ulceration, ascending colon with adenomatous mucosa with mild glandular dysplasia- Per commend, the possibility of dysplasia-associated lesions arising in derrell background of inflammatory bowel disease should be considered. H/H Slowly trending down 7.3---> 6.8/21.4. No obvious active bleeding. Aspirated yellowish bile from OGT, Liquid brown stool with no evidence of blood. - Cerebellar intracranial hemorrhage. S/P suboccipital craniectomy and evacuation cerebellar intracrainal hemorrhage, ventriculostomy placement. Per Nsx. - Acute respiratory failure. Vent per CCM. PLAN: - NPO - Place Dobhoff - KUB to confirm placement - If not post pyloric, will ask diagnostic radiology to advance - Monitor HH - Transfuse as necessary - ASMA - IgG 4 level - Monitor LFTs - Notify GI of active bleeding - Supportive care - Further recommendations to follow based on results of above - Pt seen and examined by Dr. Frazier and myself and this note is written on his behalf RECOMMENDATIONS 1. Await CT of the abdomen 2. Continue with antibiotics 3. Agree with current supportive measures 4. Recommend hydration 5. Monitor labs (Jayna Stein) Physician Comments Seen and examined with Ms. Emil NEGRON< pancreatitis with calcifications on CT. Aggressive ivf . Monitor labs. DBT feedings. (Sadaf Frazier MD) Jayna Stein May 10, 2016 08:43 Sadaf Frazier MD May 10, 2016 16:14
[2016-05-10 10:27] LABS: BLOOD GAS BASE EXCESS -5.1 mmol/L (-2-2); BLOOD GAS CARBOXYHEMOGLOBIN 1.5 % (0-4); BLOOD GAS HCO3 19 mmol/L (22-26); BLOOD GAS METHEMOGLOBIN 0.9 % (0-2); BLOOD GAS O2 HGB SATURATION 96 % (90-100); BLOOD GAS OXYGEN CONTENT 10.3 Vol % (12.0-20.0); BLOOD GAS PCO2 33 mmHg (38-42); BLOOD GAS PO2 139 mmHg (61-120); BLOOD GAS TOTAL HGB 7.4 G/DL (12.0-16.0); CRITICAL VALUE NO; TEMP CORR TO 98.6
[2016-05-10 10:28] LABS: OXYGEN DEVICE PRVC/AC 22/550/1.0/5
[2016-05-10 10:29] LABS: DRAW SITE ART LINE; FIO2 40 %; STAT NO
--- NOTE | 2016-05-10 10:49 | HHI.NSPN ---
(Bri Merchant) Note Status Status: Progress Note (Bri Merchant) Interval History Interval History This is a 65 year old female brought in by EMS as a stroke alert. She has history of multiple ischemic strokes in the past with residual left-sided weakness from the strokes. Patient has a history of Antiphospholipid syndrome and is on anticoagulated Coumadin. Apparently she was sitting down watching TV with her when she became unresponsive, with aphasia, nausea vomiting, dizziness, and increasing left-sided weakness. She is a known tyoe II diabetic and appears to be uncontrolled in ketoacidosis. EMS was called. She was brought to ED stroke alert. CT head revealed a posterior fossa ICH. She underwent emergen posterior fossa craniectomy with evacuation of cerebellar bleed and placement of ventriculostomy drain on 05/03/16. 05/04: well sedated. Pupils equal. EVD at 0 cm H20, ICPs below 10. 05/05: ICPs remains within normal limits, pupils equal, ventriculostomy draining well. 05/06: hypertensive, BP was up in the 200's systolic yesterday, on cardene. Currently running 150s. ICPs normal, EVD draining well. serum sodium 148. well sedated also for bp control. 05/07: intubated, sedated, pupils equal. EEG no ictal abnormalities. 05/10: EVD draining well, ICPs within normal limits. intubated and sedated on versed, no eye opening still. Fevers better, now with acute on chronic pancreatitis. CSF cultures pending. (Bri Merchant) Labs, Micro, & Vital Signs Results Date Time Temp Pulse Resp B/P Pulse Ox O2 Delivery O2 Flow Rate FiO2 05/10/16 07:25 100 40 05/10/16 07:25 100 40 05/10/16 06:00 80 05/10/16 04:10 99 40 05/10/16 04:00 102.0 83 22 120/44 99 05/10/16 04:00 83 05/10/16 04:00 40 05/10/16 02:00 92 05/10/16 00:33 100 40 05/10/16 00:32 100 40 05/10/16 00:00 80 05/10/16 00:00 102.8 80 25 160/50 100 05/10/16 00:00 40 05/09/16 23:30 100 100 05/09/16 22:00 77 05/09/16 20:00 80 05/09/16 20:00 103.1 80 24 144/46 100 05/09/16 20:00 40 05/09/16 18:06 100 40 05/09/16 18:00 87 05/09/16 16:00 40 05/09/16 16:00 72 05/09/16 16:00 103.1 72 24 108/40 100 05/09/16 14:00 84 05/09/16 12:38 100 40 05/09/16 12:33 100 40 05/09/16 12:00 84 05/09/16 12:00 40 05/09/16 12:00 101.2 84 24 159/53 100 05/10/16 07:00 Intake Total 2757 ml Output Total 2960 ml Balance -203 ml Constitutional Vital Signs Date Time Temp Pulse Resp B/P Pulse Ox O2 Delivery O2 Flow Rate FiO2 05/10/16 07:25 100 40 05/10/16 07:25 100 40 05/10/16 06:00 80 05/10/16 04:10 99 40 05/10/16 04:00 102.0 83 22 120/44 99 05/10/16 04:00 83 05/10/16 04:00 40 05/10/16 02:00 92 05/10/16 00:33 100 40 05/10/16 00:32 100 40 05/10/16 00:00 80 05/10/16 00:00 102.8 80 25 160/50 100 05/10/16 00:00 40 05/09/16 23:30 100 100 05/09/16 22:00 77 05/09/16 20:00 80 05/09/16 20:00 103.1 80 24 144/46 100 05/09/16 20:00 40 05/09/16 18:06 100 40 05/09/16 18:00 87 05/09/16 16:00 40 05/09/16 16:00 72 05/09/16 16:00 103.1 72 24 108/40 100 05/09/16 14:00 84 05/09/16 12:38 100 40 05/09/16 12:33 100 40 05/09/16 12:00 84 05/09/16 12:00 40 05/09/16 12:00 101.2 84 24 159/53 100 05/10/16 07:00 Intake Total 2757 ml Output Total 2960 ml Balance -203 ml (Bri Merchant) Review of Systems/Exam Exam Ms. Spann is intubated and currently sedated on Versed only. Does not open eyes , not following commands Right EVD in place at 0 cm H20, draining dark blood tinged CSF. ICPs= 6 Wound with clean dressing Cranial Nerves: Pupils 3 mm bilateral, reactive to light. Sensorimotor: muscle tone and bulk are normal. No response deep pain upper extremities, minimal withdrawal deep pain lower extremities Reflexes: Plantars silent b/l Cerebellar: unable to assess Diffuse extremity swelling (Bri Merchant) Medications Current Medications Current Medications Medications (Trade) Dose Ordered Sig/Michelle Route PRN Reason Start Time Stop Time Status Last Admin Dose Admin Artificial Tears (Tears Naturale Opth Soln) 1 drop TID EACH EYE 05/03/16 09:00 05/10/16 08:03 Ondansetron HCl (Zofran Inj) 4 mg Q6H PRN IV NAUSEA OR VOMITING 05/03/16 04:30 Miscellaneous Information 1 Q361D XX 05/03/16 04:30 05/03/16 04:30 Chlorhexidine Gluconate (Chlorhexidine 2% Cloth) Taper DAILY@04 TOP 05/04/16 04:00 04/30/17 03:59 05/09/16 04:00 Chlorhexidine Gluconate (Chlorhexidine 2% Cloth) 3 pack UNSCH PRN TOP HYGIENIC CARE 05/03/16 04:30 IV Flush (NS Flush) 2 ml UNSCH PRN IVF FLUSH AFTER USING IV ACCESS 05/03/16 12:30 05/10/16 01:48 IV Flush 2 ml 2 ml BID IVF 05/03/16 21:00 05/10/16 08:03 Levetriacetam/ Sodium Chloride (Keppra Inj/NS Inj) 105 ml @ 400 mls/hr Q12H IV 1/30/17 13:00 05/10/16 00:57 Calcium Gluconate 1 gm 1 gm UNSCH PRN IV SEE LABEL COMMENTS 05/03/16 12:30 Potassium Chloride 100 ml @ 50 mls/hr UNSCH PRN IV POTASSIUM LESS THAN 4 05/03/16 12:30 05/04/16 06:56 Magnesium Sulfate/ Sodium Chloride (Magnesium Sulfate Inj/NS Inj) 108 ml @ 108 mls/hr UNSCH PRN IV MAGNESIUM LESS THAN 2 05/03/16 12:30 Acetaminophen 650 mg 650 mg Q4H PRN PO TEMPERATURE > 101.5 F 05/03/16 12:30 05/08/16 10:38 Nicardipine HCl 50 mg/Sodium Chloride 500 ml @ 0 mls/hr TITRATE IV 05/03/16 18:17 05/08/16 05:43 Potassium Chloride 100 ml @ 50 mls/hr Q2H PRN IV For Potassium 2.8 - 3.2 mEq/L 05/04/16 08:45 Potassium Chloride (KCl 20 Meq Premix Inj) 100 ml @ 50 mls/hr Q2H PRN IV For Potassium 2.8 - 3.2 mEq/L 05/04/16 08:45 Potassium Chloride 40 meq 40 meq UNSCH PRN PO/TUBE For Potassium 3.3 - 3.5 mEq/L 05/04/16 08:45 Potassium Chloride 100 ml @ 25 mls/hr UNSCH PRN IV For Potassium 3.3 - 3.5 mEq/L 05/04/16 08:45 Potassium Chloride 100 ml @ 50 mls/hr Q2H PRN IV For Potassium 3.3 - 3.5 mEq/L 05/04/16 08:45 Magnesium Sulfate/ Sodium Chloride (Magnesium Sulfate Inj/NS Inj) 100 ml @ 50 mls/hr UNSCH PRN IV For Magnesium 0.9 - 1.1 mg/dL 05/04/16 08:45 Magnesium Oxide 800 mg 800 mg UNSCH PRN PO For Magnesium 1.2 - 1.6 mg/dL 05/04/16 08:45 Magnesium Sulfate/ Sodium Chloride (Magnesium Sulfate Inj/NS Inj) 100 ml @ 50 mls/hr UNSCH PRN IV For Magnesium 1.2 - 1.6 mg/dL 05/04/16 08:45 Potassium Phosphate 2000 mg 2,000 mg Q4H PRN PO For Phosphorus < 2.5 mg/dL 05/04/16 08:45 Sodium Phosphate/ Sodium Chloride (Sodium Phosphate Inj/NS 250 ml Inj) 250 ml @ 42 mls/hr UNSCH PRN IV For Phosphorus < 2.5 mg/dL 05/04/16 08:45 Potassium Chloride (KCl 40 Meq/30 ml Liq) 40 meq UNSCH PRN PO/TUBE SEE LABEL COMMENTS 05/04/16 08:45 Potassium Phosphate 2000 mg 2,000 mg UNSCH PRN PO/TUBE SEE LABEL COMMENTS 05/04/16 08:45 Potassium Phosphate/Sodium Chloride (Potassium Phosphate Inj/NS 250 ml Inj) 260 ml @ 42 mls/hr UNSCH PRN IV SEE LABEL COMMENTS 05/04/16 08:45 Insulin Aspart (NovoLOG SUPPLEMENTAL SCALE) 1 Q4HR SQ 05/04/16 12:00 05/08/16 20:26 Dextrose (D50w (Vial) Inj) 25 ml UNSCH PRN IV HYPOGLYCEMIA-SEE COMMENTS 05/04/16 08:45 05/09/16 20:21 Glucagon (Glucagon Inj) 1 mg UNSCH PRN IM/SQ HYPOGLYCEMIA-SEE COMMENTS 05/04/16 08:45 Insulin Detemir (Levemir Inj) 50 units Q12HR SQ 05/06/16 21:00 05/09/16 07:53 Labetalol HCl (Trandate Inj) 20 mg Q1H PRN IVS SBP greater than 160mm Hg 05/06/16 10:00 05/10/16 05:18 Metoprolol Tartrate (Lopressor Inj) 5 mg Q4H PRN IV PUSH HR > 100 05/06/16 11:00 Bisacodyl (Dulcolax Supp) 10 mg DAILY RECTAL 05/07/16 09:55 Polyethylene Glycol (Miralax) 17 gm BID PO 05/06/16 09:55 05/06/16 20:36 Lactulose (Lactulose Liq) 30 ml BID PO 05/06/16 11:00 05/06/16 20:35 Senna/Docusate Sodium (Meaghan-Colace) 1 tab BID PO 05/06/16 10:00 05/06/16 20:36 Famotidine (Pepcid) 10 mg BID PO 05/06/16 21:00 05/10/16 08:02 Labetalol HCl (Trandate) 300 mg Q8HR PO 05/06/16 11:00 05/09/16 13:55 Hydralazine HCl 10 mg 10 mg Q30M PRN IV PUSH SYS BP GREATER THAN 150 MMHG 05/06/16 10:00 05/10/16 01:48 Levofloxacin/ Dextrose (Levaquin 750 Mg Premix Inj) 150 ml @ 100 mls/hr Q48H IV 05/06/16 12:00 05/08/16 12:32 Miscellaneous (Pill Splitter) 1 ea UNSCH PRN OTHER SEE LABEL COMMENTS 05/06/16 21:00 Acetaminophen (Ofirmev Inj) 1,000 mg Q6H IV 05/08/16 15:00 05/10/16 08:03 Amlodipine Besylate 10 mg 10 mg DAILY PO 05/09/16 09:00 Hold Aztreonam 1000 mg/ Sodium Chloride 100 ml @ 200 mls/hr Q8H IV 05/08/16 22:45 05/10/16 06:19 Pharmacy Profile Note 0 ml @ 0 mls/hr UNSCH OTHER 05/09/16 14:45 Vancomycin HCl/ Sodium Chloride (Vancomycin Inj/ NS 250 ml Inj) 262.5 ml @ 250 mls/hr Q24H IV 05/10/16 11:00 Miscellaneous Information SPECIFIC LAB TO BE DRAWN:VANCOMY... ONCE ONCE XX 05/12/16 10:45 05/12/16 10:46 Midazolam HCl (Versed Inj) 100 ml @ 0 mls/hr TITRATE IV 05/09/16 15:30 05/10/16 06:19 (Bri Merchant) Medical Decision Making MDM Remarks 65 y/o female with cerebellar bleed coagulopathy with supratherapeutic INR, s/p Vitamin K and KCentra history of antiphospholipid antibody EEG reports no ictal activities Klebsiella Pneumonia (Bri Merchant) Plan Plan Remarks follow up CT Head done over w/e shows stable post-op changes, cont CSF draining through EVD cont critical care mgt, ok for trach/PEG f/u CSF cultures (Bri Merchant) Attending Statement Discussed with her The exam, history, and the medical decision-making described in the above note were completed with the assistance of the mid-level provider. I reviewed and agree with the findings presented. I attest that I had a [id number] encounter with the patient on the same day, and personally performed and documented my assessment and findings in the medical record. (Oumar Chavez MD) Bri Merchant May 10, 2016 10:49 Oumar Chavez MD May 10, 2016 11:19
--- NOTE | 2016-05-10 11:19 | HHI.CCPN ---
Subjective Remarks/Hospital Course 05/03: 65 years old female was brought in by EMS for stroke alert. Patient has history of multiple strokes in the past. Patient has residual left-sided weakness from the strokes. Patient has an Antiphospholipid syndrome and is on Coumadin. Patient was sitting down watching TV with her then patient started became more unresponsive, having aphasia, nausea vomiting, dizziness, increasing left-sided weakness. EMS was called. Patient was brought to ED stroke alert. CT head revealed large posterior fossa ICH. 05/04: Remains sedated, orally intubated on mechanical ventilation. Underwent suboccipital decompression on 05/03. Ventriculostomy in place. ICPs below 10. Drained 150 cc CSF overnight 05/05: acutely this afternoon, her SBP increased from 150s to 200s. neuro exam unchanged, remains sedated on propofol without sedation vacation today per nsgy. pupillary exam unchanged, 2mm equal, reactive. required labetalol 60mg iv , esmolol 150mcg/kg/min, and cardene 15mg/hr to bring back down to goal SBP 150s. EVD still at 0 per nsgy. ICP in lateral ventricles 1. 05/06: severely hypertensive and febrile. re-cultured overnight. sputum growing GNR. 05/07: Patient remains hypertensive currently on nicardipine and esmolol infusions. Instructions given to titrated up nicardipine, start Norvasc 5 mg daily. Sputum culture with pansensitive Klebsiella. at the bedside updated 05/08: No improvement in neuro status. Continues to spike fever 103.3 MAXIMUM TEMPERATURE. Off nicardipine and esmolol. We'll start scheduled Tylenol and cooling blanket. repeat bruce culture 05/09: Continues to have persistent fever MAXIMUM TEMPERATURE 102, white count remains at 16,000. ID consulted also have ordered a lipase, US liver, venous ultrasound of all extremities. I will also change the central line, and give single dose of vancomycin 05/10: MAXIMUM TEMPERATURE is 102, but currently afebrile. Hemoglobin dropped to 6.8, WBC count 17.1. Sodium 152. Neuro exam remains unchanged. Venous ultrasound negative. Appreciate ID and GI consult. Started on Levophed 4 mcg/ min today Objective Vital Signs Date Time Temp Pulse Resp B/P Pulse Ox O2 Delivery O2 Flow Rate FiO2 05/10/16 07:25 100 40 05/10/16 06:00 80 05/10/16 04:00 102.0 22 120/44 Intake and Output 05/09/16 05/09/16 05/10/16 08:00 16:00 00:00 Intake Total 1299 ml 1906 ml 405 ml Output Total 1036.0 ml 1086 ml 964 ml Balance 263.0 ml 820 ml -559 ml Result Diagram: 05/10/16 0406 05/10/16 0406 Other Results Microbiology Date/Time Procedure Status Source Growth 05/08/16 15:30 Urine Culture - Final Complete Urine Catheterized Urine NO GROWTH IN 48 HOURS. Laboratory Tests Test 05/10/16 10:13 Blood Gas Puncture Site ART LINE Blood Gas Patient Temperature 98.6 Blood Gas HCO3 19 mmol/L (22-26) Blood Gas Base Excess -5.1 mmol/L (-2-2) Blood Gas Oxygen Saturation 96 % (90-100) Arterial Blood pH 7.38 (7.380-7.420) Arterial Blood Partial 33 mmHg (38-42) Pressure CO2 Arterial Blood Partial 139 mmHg Pressure O2 (61-120) Arterial Blood Oxygen Content 10.3 Vol % (12.0-20.0) Arterial Blood 1.5 % (0-4) Carboxyhemoglobin Arterial Blood Methemoglobin 0.9 % (0-2) Blood Gas Hemoglobin 7.4 G/DL (12.0-16.0) Oxygen Delivery Device PRVC/AC 22/550/1.0/5 Blood Gas Inspired Oxygen 40 % Imaging Last [address] 05/03/16 0000 Signed Impressions: Service Date/Time: Tuesday, May 03, 2016 01:18 - CONCLUSION: Large acute posterior fossa hemorrhage. There is also blood in the fourth and third ventricles. Report was called to Dr. Rodrigues at 1:30 AM. Haim Anaya MD Chest X-Ray 05/03/16 0000 Signed Impressions: Service Date/Time: Tuesday, May 03, 2016 01:53 - CONCLUSION: 1. Endotracheal tube tip is about 1.5 cm above the luis antonio. 2. Nasogastric tube courses into the stomach. 3. Lungs reasonably clear. Haim Anaya MD Objective Remarks HEENT: Pupils R 3mm L 2 mm, reactive to light. Orotracheally intubated Neck: No JVD Chest/Pulm: on mech vent, good air entry bilaterally, no wheezing or crackles CVS: S1-S2 regular, no murmur GI/abdomen: soft, nontender, bowel sounds sluggish Extremities: warm bilaterally, no edema Neuro: Sedated, orally intubated, Pallor present, no icterus, tongue/ mucosa moist. Pupils R 3mm L 2 mm, reactive to light. Ventriculostomy in place at 0. Withdraws bilateral lower extremities to pain A/P Problem List: (1) Intracranial hemorrhage ICD Code: I62.9 Status: Acute (2) Respiratory failure with hypoxia ICD Code: J96.91 Status: Acute (3) Hypertension ICD Code: I10 Status: Acute (4) Atrial fibrillation ICD Code: I48.91 Status: Acute (5) Coagulopathy ICD Code: D68.9 Status: Acute (6) Diabetes ICD Code: E11.9 Status: Acute Assessment and Plan Neuro: Intracranial hemorrhagic stroke Acute encephalopathy - s/p posterior decompression on 05/04 - 3% NS DCd as the NA >150 - EVD, monitor ICP. Keppra for seizure prophylaxis. Neurosurgery following - Holding BP meds due to hypotension, now on Levophed - Scheduled Tylenol for fever Resp: Acute hypoxic and hypercarbic Respiratory failure - Intubated for airway protection, continue mechanical ventilation. End tidal Co2 - No weaning until neurologically improved, BP better controlled - Plan for tracheostomy 05/10/16. Consulted Dr. Sindhu RIVERA Hypotension Previously Hypertension - Currently on Levophed at 4 mics per minute - Off Cardene gtt, esmolol gtt. - Hold labetalol 300mg po q8h, Norvasc to 10 mg daily - Hydralazine 20mg iv q20min and labetalol 20mg iv q1h - Metoprolol 5mg iv q4h prn for HR > 100. - SBP goal 140-150 A.Fib - rate controlled - Lopressor i.v. labetalol HEME Coagulopathy - reversed Coumadin with Vit K, FFP and Kcentra - Follow INR ENDO DM -Levemir to 50 units L48pspy. High-dose sliding scale insulin. Hold while NPO GI Acute on chronic pancreatitis Anemia - GI consulted, nothing by mouth. Resume tube feeds with Glucerna once cleared by GI - Bowel regimen, having BMs - Anemia - per GI - EGD in February of 2015 revealed AVM in descending colon, s/p APC; ulcer in rectum, s/p clips. - EGD/colonoscopy 03/15/15- no evidence of upper bleed, colonoscopy revealed active bleeding through out the colon with poor visualization. - S/P bleed scan 03/14/15- positive potentially duodenal. S/P Angiogram of GDA, right colic, ileocolic, and SMA - Rpt. Colonoscopy (03/17/15)---> Colonic polyp, rectal ulcer, indurated area in ascending colon biopsied ID Persistent fever/leukocytosis - Leukocytosis noted. bruce cultured. Continue vancomycin Azactam and Levaquin. ID Dr. Sanderson - Pansensitive Klebsiella in sputum. patient had witnessed aspiration event in OR per nursing report. - Changed central line 05/09/16 DVT/GI prophylaxis - TEDs/SCDs/Pepcid Critical Care: The total critical care time was 60 minutes. Time to perform other separately billable procedures was not included in the critical care time. Problem Qualifiers (1) Respiratory failure with hypoxia: Qualified Code: J96.01 - Acute respiratory failure with hypoxia Deidre Whitmore MD May 10, 2016 11:19
[2016-05-10] MEDS: LEVOFLOXACIN 750 MG PREMIX INJ 150 ML IV SCH (11:31)
[2016-05-10] MEDS: VANCOMYCIN INJ 1,250 MG in SODIUM CHLOR 0.9% 250 ML INJ 250 ML IV SCH (11:31)
[2016-05-10] MEDS: ACETAMINOPHEN 650 MG/20.3 ML UDC PO SCH ×2 (13:23→20:15)
--- NOTE | 2016-05-10 14:41 | HHI.IDPN ---
Note Infectious Disease Note Patient on the vent. Unresponsive. Little sedation. Temp lower. Diagnosed with cerebellar intracranial hemorrhage. The patient was admitted on 05/03/2016 as a stroke alert. Seen for high spiking fever. PAST MEDICAL HISTORY 1. Hypertension. 2. Atrial fibrillation. 3. Diabetes mellitus. 4. Antiphospholipid syndrome. 5. Cerebrovascular accident. 6. Cholecystectomy. 7. Total hysterectomy. 8. Kidney stones. ALLERGIES LATEX AND ROCEPHIN. MEDICATIONS 1. Aztreonam. 2. Vancomycin. 3. Levaquin. OBJECTIVE: Vital Signs Date Time Temp Pulse Resp B/P Pulse Ox O2 Delivery O2 Flow Rate FiO2 05/10/16 14:00 85 05/10/16 12:00 40 05/10/16 12:00 81 05/10/16 12:00 99.3 81 22 188/69 100 05/10/16 11:25 100 40 05/10/16 10:00 78 05/10/16 08:00 99.6 90 24 152/54 100 05/10/16 08:00 40 05/10/16 08:00 90 05/10/16 07:25 100 40 05/10/16 07:25 100 40 05/10/16 06:00 80 05/10/16 04:10 99 40 05/10/16 04:00 102.0 83 22 120/44 99 05/10/16 04:00 83 05/10/16 04:00 40 05/10/16 02:00 92 05/10/16 00:33 100 40 05/10/16 00:32 100 40 05/10/16 00:00 80 05/10/16 00:00 102.8 80 25 160/50 100 05/10/16 00:00 40 05/09/16 23:30 100 100 05/09/16 22:00 77 05/09/16 20:00 80 05/09/16 20:00 103.1 80 24 144/46 100 05/09/16 20:00 40 05/09/16 18:06 100 40 05/09/16 18:00 87 05/09/16 16:00 40 05/09/16 16:00 72 05/09/16 16:00 103.1 72 24 108/40 100 05/09/16 05/09/16 05/10/16 15:00 23:00 07:00 Intake Total 1906 ml 405 ml 446 ml Output Total 1086 ml 964 ml 910 ml Balance 820 ml -559 ml -464 ml Intake IV Total 866 ml 345 ml 386 ml Tube Feeding 1040 ml 0 ml 0 ml Other 60 ml 60 ml Output Urine Total 1000 ml 900 ml 850 ml Tube Feeding Residual Discard 0 ml Drainage Total 86 ml 64 ml 60 ml # Bowel Movements 2 1 2 Laboratory Tests Test 05/09/16 05/10/16 05:30 04:06 White Blood Count 16.0 TH/MM3 17.1 TH/MM3 Red Blood Count 2.56 MIL/MM3 2.38 MIL/MM3 Hemoglobin 7.3 GM/DL 6.8 GM/DL Hematocrit 22.8 % 21.4 % Mean Corpuscular Volume 89.1 FL 90.0 FL Mean Corpuscular Hemoglobin 28.6 PG 28.4 PG Mean Corpuscular Hemoglobin 32.1 % 31.6 % Concent Red Cell Distribution Width 15.2 % 14.9 % Platelet Count 185 TH/MM3 184 TH/MM3 Mean Platelet Volume 10.8 FL 11.0 FL Neutrophils (%) (Auto) 78.3 % Lymphocytes (%) (Auto) 13.3 % Monocytes (%) (Auto) 7.3 % Eosinophils (%) (Auto) 0.4 % Basophils (%) (Auto) 0.7 % Neutrophils # (Auto) 13.4 TH/MM3 Lymphocytes # (Auto) 2.3 TH/MM3 Monocytes # (Auto) 1.3 TH/MM3 Eosinophils # (Auto) 0.1 TH/MM3 Basophils # (Auto) 0.1 TH/MM3 CBC Comment AUTO DIFF Differential Comment AUTO DIFF CONFIRMED Platelet Estimate NORMAL Platelet Morphology Comment ENLARGED Basophilic Stippling MOD Laboratory Tests Test 05/08/16 05/09/16 05/09/16 05/10/16 15:46 00:30 05:30 04:06 Sodium Level 153 MEQ/L 155 MEQ/L 155 MEQ/L 153 MEQ/L Potassium Level 5.0 MEQ/L 4.6 MEQ/L 4.5 MEQ/L Chloride Level 123 MEQ/L 125 MEQ/L 123 MEQ/L Carbon Dioxide Level 20.5 MEQ/L 20.8 MEQ/L 20.3 MEQ/L Anion Gap 10 MEQ/L 9 MEQ/L 10 MEQ/L Blood Urea Nitrogen 51 MG/DL 56 MG/DL 57 MG/DL Creatinine 1.66 MG/DL 1.34 MG/DL 1.21 MG/DL Estimat Glomerular Filtration 31 ML/MIN 40 ML/MIN 45 ML/MIN Rate Random Glucose 163 MG/DL 120 MG/DL 91 MG/DL Calcium Level 8.1 MG/DL 8.4 MG/DL 8.4 MG/DL Total Bilirubin 0.3 MG/DL 0.3 MG/DL 0.4 MG/DL Aspartate Amino Transf 75 U/L 115 U/L 138 U/L (AST/SGOT) Alanine Aminotransferase 55 U/L 86 U/L 116 U/L (ALT/SGPT) Alkaline Phosphatase 76 U/L 75 U/L 72 U/L Total Protein 5.5 GM/DL 5.4 GM/DL 5.3 GM/DL Albumin 1.9 GM/DL 1.8 GM/DL 1.9 GM/DL Magnesium Level 2.7 MG/DL Lipase 2300 U/L 1486 U/L Microbiology Date/Time Procedure Status Source Growth 05/08/16 15:30 Urine Culture - Final Complete Urine Catheterized Urine NO GROWTH IN 48 HOURS. 05/08/16 15:40 Aerobic Blood Culture - Preliminary Resulted Blood Peripheral NO GROWTH IN 2 DAYS 05/08/16 15:40 Anaerobic Blood Culture - Preliminary Resulted Blood Peripheral NO GROWTH IN 2 DAYS 05/08/16 15:46 Aerobic Blood Culture - Preliminary Resulted Blood Peripheral NO GROWTH IN 2 DAYS 05/08/16 15:46 Anaerobic Blood Culture - Preliminary Resulted Blood Peripheral NO GROWTH IN 2 DAYS 05/08/16 20:45 Gram Stain - Final Complete Sputum Endotracheal 05/08/16 20:45 Sputum Culture - Final Complete Sputum Endotracheal HEAVY GROWTH NORMAL RESPIRATORY KIRTI 05/09/16 11:05 Gram Stain - Final Resulted Cerebral Spinal Fluid Shunt Fluid 05/09/16 11:05 CSF Culture - Preliminary Resulted Cerebral Spinal Fluid Shunt Fluid NO GROWTH IN 24 HOURS. 05/09/16 11:05 Fungal Smear Received Cerebral Spinal Fluid Shunt Fluid Pending 05/09/16 11:05 Fungal Culture Received Cerebral Spinal Fluid Shunt Fluid Pending 05/09/16 18:00 Wound Culture - Preliminary Resulted Catheter Tip Central Venous Line NO GROWTH IN 24 HOURS. PHYSICAL EXAMINATION GENERAL: On the ventilator and sedated, unresponsive. HEENT: She is intubated. The mucosa of the oropharynx appears moist. LUNGS: Diminished breath sounds throughout. HEART: Regular S1S2. ABDOMEN: Obese. Soft. Decreased bowel sounds. No tenderness appreciated. EXTREMITIES: No clubbing or cyanosis. 2 + edema. SKIN: No rash. NEUROLOGICAL: Unable to fully assess. PSYCHIATRIC: Unable to fully assess. IMPRESSION 1. Persistent fever. Possible secondary to pulmonary infection versus sepsis versus central nervous system injury and possibly central fever. 2. Leukocytosis. 3. Cerebellar intracranial hemorrhage. 4. Acute respiratory failure. 5. Previous pneumonia due to Klebsiella. 6. Acute kidney disease. RECOMMENDATIONS 1. Continue aztreonam. 2. Continue vancomycin. 3. Continue Levaquin. 4. Monitor blood cultures. 5. Monitor CSF culture. 6. Monitor temperature and white blood cell count. Sukhi Adan MD May 10, 2016 14:41
--- NOTE | 2016-05-10 15:17 | RADRPT ---
EXAM DATE/TIME: 05/10/2016 13:29 [place] COMPARISON: No previous studies available for comparison. INDICATIONS: NG tube placement. MEDICAL HISTORY: Hypertension. Cardiovascular disease. Lupus. CVA SURGICAL HISTORY: None. ENCOUNTER: Subsequent ACUITY: 1 week PAIN SCORE: Non-responsive. LOCATION: Abdomen. FINDINGS: The tip of the feeding tube is noted within the expected region of the proximal duodenum. CONCLUSION: Tip of the feeding tube is noted within the expected region of the proximal duodenum. Enzo Umana MD on May 10, 2016 at 15:03 Board Certified Radiologist. This report was verified electronically.
--- NOTE | 2016-05-10 18:47 | PD.CAR.PN ---
CVT Progress Note Subjective/Hospital Course: Patient on the ventilator with multiple medical problems For tracheostomy tomorrow Thank you so very much for consulting me J Objective: Vital Signs Date Time Temp Pulse Resp B/P Pulse Ox O2 Delivery O2 Flow Rate FiO2 05/10/16 16:04 100 40 05/10/16 14:00 85 05/10/16 12:00 40 05/10/16 12:00 81 05/10/16 12:00 99.3 81 22 188/69 100 05/10/16 11:25 100 40 05/10/16 10:00 78 05/10/16 08:00 99.6 90 24 152/54 100 05/10/16 08:00 40 05/10/16 08:00 90 05/10/16 07:25 100 40 05/10/16 07:25 100 40 05/10/16 06:00 80 05/10/16 04:10 99 40 05/10/16 04:00 102.0 83 22 120/44 99 05/10/16 04:00 83 05/10/16 04:00 40 05/10/16 02:00 92 05/10/16 00:33 100 40 05/10/16 00:32 100 40 05/10/16 00:00 80 05/10/16 00:00 102.8 80 25 160/50 100 05/10/16 00:00 40 05/09/16 23:30 100 100 05/09/16 22:00 77 05/09/16 20:00 80 05/09/16 20:00 103.1 80 24 144/46 100 05/09/16 20:00 40 Labs: Laboratory Tests Test 05/10/16 05/10/16 05/10/16 09:06 10:13 15:30 Blood Type O NEGATIVE Antibody Screen NEGATIVE Crossmatch Leukocyte-Reduced Red Blood Cells Blood Bank Comment Blood Gas Puncture Site ART LINE Blood Gas Patient Temperature 98.6 Blood Gas HCO3 19 mmol/L (22-26) Blood Gas Base Excess -5.1 mmol/L (-2-2) Blood Gas Oxygen Saturation 96 % (90-100) Arterial Blood pH 7.38 (7.380-7.420) Arterial Blood Partial 33 mmHg (38-42) Pressure CO2 Arterial Blood Partial 139 mmHg Pressure O2 (61-120) Arterial Blood Oxygen Content 10.3 Vol % (12.0-20.0) Arterial Blood 1.5 % (0-4) Carboxyhemoglobin Arterial Blood Methemoglobin 0.9 % (0-2) Blood Gas Hemoglobin 7.4 G/DL (12.0-16.0) Oxygen Delivery Device [facility]/ 22/550/1.0/5 Blood Gas Inspired Oxygen 40 % Hemoglobin 7.7 GM/DL (11.6-15.3) Result Diagram: 05/10/16 1530 05/10/16 0406 Sandra Mcfarlane MD May 10, 2016 18:47
[2016-05-10] MEDS ORDERED: ALTEPLASE RECOMBINANT 2 MG VIAL IVF ONE (20:30)
[2016-05-10] MEDS ORDERED: ALTEPLASE RECOMBINANT 2 MG VIAL IVF PRN (20:30)
[2016-05-10] MEDS ORDERED: NOREPINEPHRINE 4 MG/D5W 250 ML IV SCH (21:45)
[2016-05-11] VITALS (19 sets, daily range): BP systolic 138–189; BP diastolic 52–68; PULSE 66–88; RESP 16–22; TEMP 98.9–100.1; O2SAT 98–100
[2016-05-11] MEDS: levETIRAcetam INJ 500 MG in SODIUM CHLORIDE 0.9% INJ 100 ML IV SCH ×2 (00:27→12:49)
[2016-05-11] MEDS: hydrALAZINE HCL 20 MG/ML VIAL IV PUSH PRN (00:28)
[2016-05-11] MEDS ORDERED: SODIUM CHLOR 0.9% 250 ML INJ 250 ML ONE (01:15)
[2016-05-11] MEDS: niCARdipine INJ 50 MG in SODIUM CHLORID 0.9% 500 ML INJ 480 ML IV SCH (01:21)
[2016-05-11] MEDS: MIDAZOLAM 100 MG/ML INJ 100 ML IV SCH ×2 (01:22→20:26)
[2016-05-11] MEDS: ACETAMINOPHEN 650 MG/20.3 ML UDC PO SCH ×4 (01:22→20:26)
[2016-05-11 03:33] LABS: AUTOMATED NEUTROPHIL # 13.1 TH/MM3 (1.8-7.7); BASOPHIL # 0.1 TH/MM3 (0-0.2); BASOPHIL % 0.5 % (0.0-2.0); EOSINOPHIL # 0.1 TH/MM3 (0-0.4); EOSINOPHIL % 0.6 % (0.0-4.0); HEMATOCRIT 22.5 % (35.0-46.0); LYMPH % 15.1 % (9.0-44.0); LYMPHOCYTE # 2.6 TH/MM3 (1.0-4.8); MEAN CELL VOLUME 89.1 FL (80.0-100.0); MEAN CORPUSCULAR HEMOGLOBIN 28.5 PG (27.0-34.0); NEUT % 76.8 % (16.0-70.0); PLATELET COUNT 181 TH/MM3 (150-450); RED BLOOD COUNT 2.53 MIL/MM3 (4.00-5.30); RED CELL DISTRIBUTION WIDTH 14.6 % (11.6-17.2)
[2016-05-11 03:35] LABS: HEMO FLAGS AUTO DIFF
[2016-05-11 03:52] LABS: BICARBONATE 20.7 MEQ/L (21.0-32.0); POTASSIUM 4.3 MEQ/L (3.5-5.1)
[2016-05-11 03:54] LABS: INDIRECT BILIRUBIN 0.2 MG/DL (0.0-0.8); TOTAL BILIRUBIN ADULT 0.3 MG/DL (0.2-1.0)
[2016-05-11] MEDS: CHLORHEXIDINE GLUCONATE 2 % 1 PACK (2 CLOTHS) TOP SCH (04:00)
[2016-05-11] MEDS: INSULIN ASPART SUPPLEMENTAL SCALE SQ SCH ×4 (04:00→23:41)
[2016-05-11 04:12] LABS: SCAN/DIFF AUTO DIFF CONFIRMED
[2016-05-11 04:26] LABS: BLOOD GAS BASE EXCESS -5.2 mmol/L (-2-2); BLOOD GAS CARBOXYHEMOGLOBIN 1.2 % (0-4); BLOOD GAS HCO3 19 mmol/L (22-26); BLOOD GAS METHEMOGLOBIN 0.9 % (0-2); BLOOD GAS O2 HGB SATURATION 96 % (90-100); BLOOD GAS PCO2 31 mmHg (38-42); BLOOD GAS PO2 129 mmHg (61-120); BLOOD GAS TOTAL HGB 11.7 G/DL (12.0-16.0); CRITICAL VALUE NO; OXYGEN DEVICE VENTILATOR; TEMP CORR TO 98.6
[2016-05-11 04:27] LABS: DRAW SITE ART LINE; FIO2 35 %; STAT YES; VENT SETTINGS PRVC/AC/
[2016-05-11] MEDS: LABETALOL HCL 200 MG TAB PO SCH ×3 (06:00→22:00)
[2016-05-11] MEDS: AZTREONAM INJ 1,000 MG in SODIUM CHLORIDE 0.9% INJ 100 ML IV SCH ×3 (06:51→23:41)
[2016-05-11] MEDS: BISACODYL 10 MG SUPP RECTAL SCH (09:00)
[2016-05-11] MEDS: POLYETHYLENE GLYCOL 17 GM PKG PO SCH ×2 (09:00→20:27)
[2016-05-11] MEDS: DOCUSATE SODIUM 50 MG/SENNA 8.6 MG TAB PO SCH ×2 (09:00→20:28)
[2016-05-11] MEDS: LACTULOSE SYRUP 20 GM/30 ML CUP PO SCH ×2 (09:00→20:27)
[2016-05-11] MEDS: ARTIFICIAL TEARS OPTH SOLN 15 ML BTL EACH EYE SCH ×3 (09:00→18:00)
[2016-05-11] MEDS: FAMOTIDINE 20 MG TAB PO SCH ×2 (09:44→20:33)
[2016-05-11] MEDS: INSULIN DETEMIR 100 UNITS/ML VIAL SQ SCH ×2 (09:44→20:28)
[2016-05-11] MEDS: SODIUM CHLORIDE 0.9% FLUSH 5 ML FLUSH IVF SCH ×2 (09:45→20:26)
--- NOTE | 2016-05-11 11:02 | HHI.CCPN ---
Subjective Remarks/Hospital Course 05/03: 65 years old female was brought in by EMS for stroke alert. Patient has history of multiple strokes in the past. Patient has residual left-sided weakness from the strokes. Patient has an Antiphospholipid syndrome and is on Coumadin. Patient was sitting down watching TV with her then patient started became more unresponsive, having aphasia, nausea vomiting, dizziness, increasing left-sided weakness. EMS was called. Patient was brought to ED stroke alert. CT head revealed large posterior fossa ICH. 05/04: Remains sedated, orally intubated on mechanical ventilation. Underwent suboccipital decompression on 05/03. Ventriculostomy in place. ICPs below 10. Drained 150 cc CSF overnight 05/05: acutely this afternoon, her SBP increased from 150s to 200s. neuro exam unchanged, remains sedated on propofol without sedation vacation today per nsgy. pupillary exam unchanged, 2mm equal, reactive. required labetalol 60mg iv , esmolol 150mcg/kg/min, and cardene 15mg/hr to bring back down to goal SBP 150s. EVD still at 0 per nsgy. ICP in lateral ventricles 1. 05/06: severely hypertensive and febrile. re-cultured overnight. sputum growing GNR. 05/07: Patient remains hypertensive currently on nicardipine and esmolol infusions. Instructions given to titrated up nicardipine, start Norvasc 5 mg daily. Sputum culture with pansensitive Klebsiella. at the bedside updated 05/08: No improvement in neuro status. Continues to spike fever 103.3 MAXIMUM TEMPERATURE. Off nicardipine and esmolol. We'll start scheduled Tylenol and cooling blanket. repeat bruce culture 05/09: Continues to have persistent fever MAXIMUM TEMPERATURE 102, white count remains at 16,000. ID consulted also have ordered a lipase, US liver, venous ultrasound of all extremities. I will also change the central line, and give single dose of vancomycin 05/10: MAXIMUM TEMPERATURE is 102, but currently afebrile. Hemoglobin dropped to 6.8, WBC count 17.1. Sodium 152. Neuro exam remains unchanged. Venous ultrasound negative. Appreciate ID and GI consult. Started on Levophed 4 mcg/ min today 05/11: Tmax 101.4, but fever trending down. WBC 17. Hb 7.2. Transfuse 1U PRBC. Na 150. Off Levophed now, hypertensive. BP Labile. All cultures negative Objective Vital Signs Date Time Temp Pulse Resp B/P Pulse Ox O2 Delivery O2 Flow Rate FiO2 05/11/16 10:00 84 05/11/16 08:45 99 35 05/11/16 08:00 99.6 16 138/52 Intake and Output 05/10/16 05/10/16 05/11/16 08:00 16:00 00:00 Intake Total 446 ml 1137 ml 433 ml Output Total 910 ml 844 ml 966 ml Balance -464 ml 293 ml -533 ml Result Diagram: 05/11/169 05/11/169 Other Results Microbiology Date/Time Procedure Status Source Growth 05/08/16 15:30 Urine Culture - Final Complete Urine Catheterized Urine NO GROWTH IN 48 HOURS. 05/08/16 20:45 Gram Stain - Final Complete Sputum Endotracheal 05/08/16 20:45 Sputum Culture - Final Complete Sputum Endotracheal HEAVY GROWTH NORMAL RESPIRATORY KIRTI 05/09/16 18:00 Wound Culture - Final Complete Catheter Tip Central Venous Line Laboratory Tests Test 05/11/16 04:15 Blood Gas Puncture Site ART LINE Blood Gas Patient Temperature 98.6 Blood Gas HCO3 19 mmol/L (22-26) Blood Gas Base Excess -5.2 mmol/L (-2-2) Blood Gas Oxygen Saturation 96 % (90-100) Arterial Blood pH 7.40 (7.380-7.420) Arterial Blood Partial 31 mmHg (38-42) Pressure CO2 Arterial Blood Partial 129 mmHg Pressure O2 (61-120) Arterial Blood Oxygen Content 16.0 Vol % (12.0-20.0) Arterial Blood 1.2 % (0-4) Carboxyhemoglobin Arterial Blood Methemoglobin 0.9 % (0-2) Blood Gas Hemoglobin 11.7 G/DL (12.0-16.0) Oxygen Delivery Device VENTILATOR Blood Gas Ventilator Setting PRVC/AC/ Blood Gas Inspired Oxygen 35 % Imaging Last [address] 05/03/16 0000 Signed Impressions: Service Date/Time: Tuesday, May 03, 2016 01:18 - CONCLUSION: Large acute posterior fossa hemorrhage. There is also blood in the fourth and third ventricles. Report was called to Dr. Rodrigues at 1:30 AM. Haim Anaya MD Chest X-Ray 05/03/16 0000 Signed Impressions: Service Date/Time: Tuesday, May 03, 2016 01:53 - CONCLUSION: 1. Endotracheal tube tip is about 1.5 cm above the luis antonio. 2. Nasogastric tube courses into the stomach. 3. Lungs reasonably clear. Haim Anaya MD Objective Remarks HEENT: Pupils R 3mm L 2 mm, reactive to light. Orotracheally intubated Neck: Thick neck limits JVD exam Chest/Pulm: on mech vent, good air entry bilaterally, no wheezing or crackles CVS: S1-S2 regular, no murmur GI/abdomen: soft, nontender, bowel sounds sluggish Extremities: warm bilaterally, no edema Neuro: Sedated, orally intubated, Pallor present, no icterus, tongue/ mucosa moist. Pupils R 3mm L 2 mm, reactive to light. Ventriculostomy in place at 0. Withdraws bilateral lower extremities to pain Urinary Catheter: Yes Assessment to: Continue A/P Problem List: (1) Intracranial hemorrhage ICD Code: I62.9 Status: Acute (2) Respiratory failure with hypoxia ICD Code: J96.91 Status: Acute (3) Hypertension ICD Code: I10 Status: Acute (4) Atrial fibrillation ICD Code: I48.91 Status: Acute (5) Coagulopathy ICD Code: D68.9 Status: Acute (6) Diabetes ICD Code: E11.9 Status: Acute Assessment and Plan Neuro: Intracranial hemorrhagic stroke/large acute posterior fossa hemorrhage with intraventricular extension Acute encephalopathy - s/p posterior decompression on 05/04 - 3% NS DCd as the NA >150 - EVD, monitor ICP. Keppra for seizure prophylaxis. Neurosurgery following Dr. Chavez - Intermittently on Levophed - Scheduled Tylenol for fever Resp: Acute hypoxic and hypercarbic Respiratory failure - Intubated for airway protection, continue mechanical ventilation. End tidal Co2 - No weaning until neurologically improved, BP better controlled - Plan for tracheostomy 05/11/16. with Dr. Sindhu RIVERA Hypotension Previously Hypertension - Currently on Levophed at 4 mics per minute, just weaned off - Off Cardene gtt, esmolol gtt. Hold labetalol 300mg po q8h, Norvasc to 10 mg daily - Hydralazine 20mg iv q20min and labetalol 20mg iv q1h for SBP >180 - Metoprolol 5mg iv q4h prn for HR > 100. - SBP goal 140-150, but remains very labile A.Fib - rate controlled - Lopressor i.v. labetalol HEME Coagulopathy - reversed Coumadin with Vit K, FFP and Kcentra - Follow INR ENDO DM -Levemir to 50 units [id number]. High-dose sliding scale insulin. Hold Levemir while NPO GI Acute on chronic pancreatitis Anemia - GI consulted for acute pancreatitis, nothing by mouth for trach, Post pyloric feeding after procedure - Bowel regimen, having BMs - Anemia - per GI - EGD in February of 2015 revealed AVM in descending colon, s/p APC; ulcer in rectum, s/p clips. - EGD/colonoscopy 03/15/15- no evidence of upper bleed, colonoscopy revealed active bleeding through out the colon with poor visualization. - S/P bleed scan 03/14/15- positive potentially duodenal. S/P Angiogram of GDA, right colic, ileocolic, and SMA - Rpt. Colonoscopy (03/17/15)---> Colonic polyp, rectal ulcer, indurated area in ascending colon biopsied ID Persistent fever/leukocytosis - Leukocytosis noted. bruce cultured-neg to date. Continue vancomycin Azactam and Levaquin. ID Dr. Sanderson - Pansensitive Klebsiella in sputum. patient had witnessed aspiration event in OR per nursing report. - Changed central line 05/09/16 DVT/GI prophylaxis - TEDs/SCDs/Pepcid Critical Care: The total critical care time was 40 minutes. Time to perform other separately billable procedures was not included in the critical care time. Problem Qualifiers (1) Respiratory failure with hypoxia: Qualified Code: J96.01 - Acute respiratory failure with hypoxia Deidre Whitmore MD May 11, 2016 11:02
--- NOTE | 2016-05-11 11:30 | HHI.NSPN ---
(Bri Merchant) Note Status Status: Progress Note (Bri Merchant) Interval History Interval History This is a 65 year old female brought in by EMS as a stroke alert. She has history of multiple ischemic strokes in the past with residual left-sided weakness from the strokes. Patient has a history of Antiphospholipid syndrome and is on anticoagulated Coumadin. Apparently she was sitting down watching TV with her when she became unresponsive, with aphasia, nausea vomiting, dizziness, and increasing left-sided weakness. She is a known tyoe II diabetic and appears to be uncontrolled in ketoacidosis. EMS was called. She was brought to ED stroke alert. CT head revealed a posterior fossa ICH. She underwent emergen posterior fossa craniectomy with evacuation of cerebellar bleed and placement of ventriculostomy drain on 05/03/16. 05/04: well sedated. Pupils equal. EVD at 0 cm H20, ICPs below 10. 05/05: ICPs remains within normal limits, pupils equal, ventriculostomy draining well. 05/06: hypertensive, BP was up in the 200's systolic yesterday, on cardene. Currently running 150s. ICPs normal, EVD draining well. serum sodium 148. well sedated also for bp control. 05/07: intubated, sedated, pupils equal. EEG no ictal abnormalities. 05/10: EVD draining well, ICPs within normal limits. intubated and sedated on versed, no eye opening still. Fevers better, now with acute on chronic pancreatitis. CSF cultures pending. 05/11: no clinical changes, for trach/PEG today. (Bri Merchant) Labs, Micro, & Vital Signs Results Date Time Temp Pulse Resp B/P Pulse Ox O2 Delivery O2 Flow Rate FiO2 05/11/16 11:22 100 100 05/11/16 10:00 84 05/11/16 08:45 99 35 05/11/16 08:45 35 05/11/16 08:00 35 05/11/16 08:00 74 05/11/16 08:00 99.6 74 16 138/52 100 05/11/16 06:00 72 05/11/16 04:07 98 35 05/11/16 04:00 74 05/11/16 04:00 100.1 74 16 160/60 100 05/11/16 04:00 35 05/11/16 02:00 86 05/11/16 01:23 99 35 05/11/16 01:17 100 40 05/11/16 01:10 35 05/11/16 00:00 78 05/11/16 00:00 40 05/11/16 00:00 100.0 86 22 164/58 98 05/10/16 22:00 75 05/10/16 20:00 40 05/10/16 20:00 101.4 82 24 162/60 100 05/10/16 20:00 82 05/10/16 19:20 94 40 05/10/16 18:00 80 05/10/16 16:04 100 40 05/10/16 16:00 100.7 63 22 104/44 100 05/10/16 16:00 40 05/10/16 16:00 63 05/10/16 15:30 99.0 84 23 157/68 100 05/10/16 14:00 85 05/10/16 12:15 99.3 83 22 187/57 100 05/10/16 12:00 40 05/10/16 12:00 81 05/10/16 12:00 99.3 81 22 188/69 100 05/11/16 07:00 Intake Total 2075 ml Output Total 1976 ml Balance 99 ml Constitutional Vital Signs Date Time Temp Pulse Resp B/P Pulse Ox O2 Delivery O2 Flow Rate FiO2 05/11/16 11:22 100 100 05/11/16 10:00 84 05/11/16 08:45 99 35 05/11/16 08:45 35 05/11/16 08:00 35 05/11/16 08:00 74 05/11/16 08:00 99.6 74 16 138/52 100 05/11/16 06:00 72 05/11/16 04:07 98 35 05/11/16 04:00 74 05/11/16 04:00 100.1 74 16 160/60 100 05/11/16 04:00 35 05/11/16 02:00 86 05/11/16 01:23 99 35 05/11/16 01:17 100 40 05/11/16 01:10 35 05/11/16 00:00 78 05/11/16 00:00 40 05/11/16 00:00 100.0 86 22 164/58 98 05/10/16 22:00 75 05/10/16 20:00 40 05/10/16 20:00 101.4 82 24 162/60 100 05/10/16 20:00 82 05/10/16 19:20 94 40 05/10/16 18:00 80 05/10/16 16:04 100 40 05/10/16 16:00 100.7 63 22 104/44 100 05/10/16 16:00 40 05/10/16 16:00 63 05/10/16 15:30 99.0 84 23 157/68 100 05/10/16 14:00 85 05/10/16 12:15 99.3 83 22 187/57 100 05/10/16 12:00 40 05/10/16 12:00 81 05/10/16 12:00 99.3 81 22 188/69 100 05/11/16 07:00 Intake Total 2075 ml Output Total 1976 ml Balance 99 ml (Bri Merchant) Review of Systems/Exam Exam Ms. Spann is intubated and currently sedated on Versed. Does not open eyes, not following commands Right EVD in place at 0 cm H20, draining yellow CSF. ICPs= 6 Wound with clean dressing Cranial Nerves: Pupils 4 mm bilateral, reactive to light. Sensorimotor: muscle tone and bulk are normal. No response deep pain upper extremities, minimal withdrawal deep pain lower extremities Reflexes: Plantars silent b/l Cerebellar: unable to assess Diffuse extremity swelling (Bri Merchant) Medications Current Medications Current Medications Medications (Trade) Dose Ordered Sig/Michelle Route PRN Reason Start Time Stop Time Status Last Admin Dose Admin Artificial Tears (Tears Naturale Opth Soln) 1 drop TID EACH EYE 05/03/16 09:00 05/11/16 09:00 Ondansetron HCl (Zofran Inj) 4 mg Q6H PRN IV NAUSEA OR VOMITING 05/03/16 04:30 Miscellaneous Information 1 Q361D XX 05/03/16 04:30 05/03/16 04:30 Chlorhexidine Gluconate (Chlorhexidine 2% Cloth) Taper DAILY@04 TOP 05/04/16 04:00 04/30/17 03:59 05/09/16 04:00 Chlorhexidine Gluconate (Chlorhexidine 2% Cloth) 3 pack UNSCH PRN TOP HYGIENIC CARE 05/03/16 04:30 IV Flush (NS Flush) 2 ml UNSCH PRN IVF FLUSH AFTER USING IV ACCESS 05/03/16 12:30 05/10/16 01:48 IV Flush 2 ml 2 ml BID IVF 05/03/16 21:00 05/11/16 09:45 Levetriacetam/ Sodium Chloride (Keppra Inj/NS Inj) 105 ml @ 400 mls/hr Q12H IV 05/03/16 13:00 05/11/16 00:27 Calcium Gluconate 1 gm 1 gm UNSCH PRN IV SEE LABEL COMMENTS 05/03/16 12:30 Potassium Chloride 100 ml @ 50 mls/hr UNSCH PRN IV POTASSIUM LESS THAN 4 05/03/16 12:30 05/04/16 06:56 Magnesium Sulfate/ Sodium Chloride (Magnesium Sulfate Inj/NS Inj) 108 ml @ 108 mls/hr UNSCH PRN IV MAGNESIUM LESS THAN 2 05/03/16 12:30 Acetaminophen 650 mg 650 mg Q4H PRN PO TEMPERATURE > 101.5 F 05/03/16 12:30 05/08/16 10:38 Nicardipine HCl 50 mg/Sodium Chloride 500 ml @ 0 mls/hr TITRATE IV 05/03/16 18:17 05/11/16 01:21 Potassium Chloride 100 ml @ 50 mls/hr Q2H PRN IV For Potassium 2.8 - 3.2 mEq/L 05/04/16 08:45 Potassium Chloride (KCl 20 Meq Premix Inj) 100 ml @ 50 mls/hr Q2H PRN IV For Potassium 2.8 - 3.2 mEq/L 05/04/16 08:45 Potassium Chloride 40 meq 40 meq UNSCH PRN PO/TUBE For Potassium 3.3 - 3.5 mEq/L 05/04/16 08:45 Potassium Chloride 100 ml @ 25 mls/hr UNSCH PRN IV For Potassium 3.3 - 3.5 mEq/L 05/04/16 08:45 Potassium Chloride 100 ml @ 50 mls/hr Q2H PRN IV For Potassium 3.3 - 3.5 mEq/L 05/04/16 08:45 Magnesium Sulfate/ Sodium Chloride (Magnesium Sulfate Inj/NS Inj) 100 ml @ 50 mls/hr UNSCH PRN IV For Magnesium 0.9 - 1.1 mg/dL 05/04/16 08:45 Magnesium Oxide 800 mg 800 mg UNSCH PRN PO For Magnesium 1.2 - 1.6 mg/dL 05/04/16 08:45 Magnesium Sulfate/ Sodium Chloride (Magnesium Sulfate Inj/NS Inj) 100 ml @ 50 mls/hr UNSCH PRN IV For Magnesium 1.2 - 1.6 mg/dL 05/04/16 08:45 Potassium Phosphate 2000 mg 2,000 mg Q4H PRN PO For Phosphorus < 2.5 mg/dL 05/04/16 08:45 Sodium Phosphate/ Sodium Chloride (Sodium Phosphate Inj/NS 250 ml Inj) 250 ml @ 42 mls/hr UNSCH PRN IV For Phosphorus < 2.5 mg/dL 05/04/16 08:45 Potassium Chloride (KCl 40 Meq/30 ml Liq) 40 meq UNSCH PRN PO/TUBE SEE LABEL COMMENTS 05/04/16 08:45 Potassium Phosphate 2000 mg 2,000 mg UNSCH PRN PO/TUBE SEE LABEL COMMENTS 05/04/16 08:45 Potassium Phosphate/Sodium Chloride (Potassium Phosphate Inj/NS 250 ml Inj) 260 ml @ 42 mls/hr UNSCH PRN IV SEE LABEL COMMENTS 05/04/16 08:45 Insulin Aspart (NovoLOG SUPPLEMENTAL SCALE) 1 Q4HR SQ 05/04/16 12:00 05/08/16 20:26 Dextrose (D50w (Vial) Inj) 25 ml UNSCH PRN IV HYPOGLYCEMIA-SEE COMMENTS 05/04/16 08:45 05/09/16 20:21 Glucagon (Glucagon Inj) 1 mg UNSCH PRN IM/SQ HYPOGLYCEMIA-SEE COMMENTS 05/04/16 08:45 Insulin Detemir (Levemir Inj) 50 units Q12HR SQ 05/06/16 21:00 05/11/16 09:44 Labetalol HCl (Trandate Inj) 20 mg Q1H PRN IVS SBP greater than 160mm Hg 05/06/16 10:00 05/10/16 20:13 Metoprolol Tartrate (Lopressor Inj) 5 mg Q4H PRN IV PUSH HR > 100 05/06/16 11:00 Bisacodyl (Dulcolax Supp) 10 mg DAILY RECTAL 05/07/16 09:55 Polyethylene Glycol (Miralax) 17 gm BID PO 05/06/16 09:55 05/06/16 20:36 Lactulose (Lactulose Liq) 30 ml BID PO 05/06/16 11:00 05/06/16 20:35 Senna/Docusate Sodium (Meaghan-Colace) 1 tab BID PO 05/06/16 10:00 05/06/16 20:36 Famotidine (Pepcid) 10 mg BID PO 05/06/16 21:00 05/11/16 09:44 Labetalol HCl (Trandate) 300 mg Q8HR PO 05/06/16 11:00 05/10/16 13:23 Hydralazine HCl 10 mg 10 mg Q30M PRN IV PUSH SYS BP GREATER THAN 150 MMHG 05/06/16 10:00 05/11/16 00:28 Levofloxacin/ Dextrose (Levaquin 750 Mg Premix Inj) 150 ml @ 100 mls/hr Q48H IV 05/06/16 12:00 05/10/16 11:31 Miscellaneous (Pill Splitter) 1 ea UNSCH PRN OTHER SEE LABEL COMMENTS 05/06/16 21:00 Amlodipine Besylate 10 mg 10 mg DAILY PO 05/09/16 09:00 Hold Aztreonam 1000 mg/ Sodium Chloride 100 ml @ 200 mls/hr Q8H IV 05/08/16 22:45 05/11/16 06:51 Pharmacy Profile Note 0 ml @ 0 mls/hr UNSCH OTHER 05/09/16 14:45 Vancomycin HCl/ Sodium Chloride (Vancomycin Inj/ NS 250 ml Inj) 262.5 ml @ 250 mls/hr Q24H IV 05/10/16 11:00 05/10/16 11:31 Miscellaneous Information SPECIFIC LAB TO BE DRAWN:VANCOMY... ONCE ONCE XX 05/12/16 10:45 05/12/16 10:46 Midazolam HCl (Versed Inj) 100 ml @ 0 mls/hr TITRATE IV 05/09/16 15:30 05/11/16 01:22 Acetaminophen 650 mg 650 mg Q6H PO 05/10/16 14:00 05/11/16 09:48 Norepinephrine Bitartrate (Levophed-Dextrose Drip) 250 ml @ 0 mls/hr TITRATE IV 05/10/16 21:45 (Bri Merchant) Medical Decision Making MDM Remarks 65 y/o female with cerebellar bleed coagulopathy with supratherapeutic INR, s/p Vitamin K and KCentra history of antiphospholipid antibody EEG reports no ictal activities Klebsiella Pneumonia (Bri Merchant) Plan Plan Remarks start EVD challenge, raise to 5 cm H20 with ICP monitoring cont critical care for trach/PEG today f/u CSF cultures (Bri Merchant) Attending Statement The exam, history, and the medical decision-making described in the above note were completed with the assistance of the mid-level provider. I reviewed and agree with the findings presented. I attest that I had a [id number] encounter with the patient on the same day, and personally performed and documented my assessment and findings in the medical record. (Oumar Chavez MD) Bri Merchant May 11, 2016 11:30 Oumar Chavez MD May 13, 2016 14:01
[2016-05-11] MEDS: VANCOMYCIN INJ 1,250 MG in SODIUM CHLOR 0.9% 250 ML INJ 250 ML IV SCH (12:45)
--- NOTE | 2016-05-11 12:49 | HHI.IDPN ---
Note Infectious Disease Note Patient on the vent. 100% Fio2. Unresponsive. Temp improved then spiked again. Cultures has no growth. Diagnosed with cerebellar intracranial hemorrhage. The patient was admitted on 05/03/2016 as a stroke alert. Seen for high spiking fever. PAST MEDICAL HISTORY 1. Hypertension. 2. Atrial fibrillation. 3. Diabetes mellitus. 4. Antiphospholipid syndrome. 5. Cerebrovascular accident. 6. Cholecystectomy. 7. Total hysterectomy. 8. Kidney stones. ALLERGIES LATEX AND ROCEPHIN. MEDICATIONS 1. Aztreonam. 2. Vancomycin. 3. Levaquin. OBJECTIVE: Vital Signs Date Time Temp Pulse Resp B/P Pulse Ox O2 Delivery O2 Flow Rate FiO2 05/11/16 12:00 35 05/11/16 12:00 99.1 67 21 164/68 100 05/11/16 12:00 67 05/11/16 11:22 100 100 05/11/16 10:00 84 05/11/16 08:45 99 35 05/11/16 08:45 35 05/11/16 08:00 35 05/11/16 08:00 74 05/11/16 08:00 99.6 74 16 138/52 100 05/11/16 06:00 72 05/11/16 04:07 98 35 05/11/16 04:00 74 05/11/16 04:00 100.1 74 16 160/60 100 05/11/16 04:00 35 05/11/16 02:00 86 05/11/16 01:23 99 35 05/11/16 01:17 100 40 05/11/16 01:10 35 05/11/16 00:00 78 05/11/16 00:00 40 05/11/16 00:00 100.0 86 22 164/58 98 05/10/16 22:00 75 05/10/16 20:00 40 05/10/16 20:00 101.4 82 24 162/60 100 05/10/16 20:00 82 05/10/16 19:20 94 40 05/10/16 18:00 80 05/10/16 16:04 100 40 05/10/16 16:00 100.7 63 22 104/44 100 05/10/16 16:00 40 05/10/16 16:00 63 05/10/16 15:30 99.0 84 23 157/68 100 05/10/16 14:00 85 05/10/16 05/10/16 05/11/16 15:00 23:00 07:00 Intake Total 1137 ml 433 ml 505 ml Output Total 844 ml 966 ml 166 ml Balance 293 ml -533 ml 339 ml Intake IV Total 767 ml 313 ml 385 ml Tube Feeding 0 ml 0 ml Packed Cells 250 ml Other 120 ml 120 ml 120 ml Output Urine Total 800 ml 900 ml 100 ml Drainage Total 44 ml 66 ml 66 ml # Bowel Movements 2 2 3 Laboratory Tests Test 05/10/16 05/10/16 05/11/16 04:06 15:30 03:19 White Blood Count 17.1 TH/MM3 17.0 TH/MM3 Red Blood Count 2.38 MIL/MM3 2.53 MIL/MM3 Hemoglobin 6.8 GM/DL 7.7 GM/DL 7.2 GM/DL Hematocrit 21.4 % 22.5 % Mean Corpuscular Volume 90.0 FL 89.1 FL Mean Corpuscular Hemoglobin 28.4 PG 28.5 PG Mean Corpuscular Hemoglobin 31.6 % 32.0 % Concent Red Cell Distribution Width 14.9 % 14.6 % Platelet Count 184 TH/MM3 181 TH/MM3 Mean Platelet Volume 11.0 FL 11.0 FL Neutrophils (%) (Auto) 78.3 % 76.8 % Lymphocytes (%) (Auto) 13.3 % 15.1 % Monocytes (%) (Auto) 7.3 % 7.0 % Eosinophils (%) (Auto) 0.4 % 0.6 % Basophils (%) (Auto) 0.7 % 0.5 % Neutrophils # (Auto) 13.4 TH/MM3 13.1 TH/MM3 Lymphocytes # (Auto) 2.3 TH/MM3 2.6 TH/MM3 Monocytes # (Auto) 1.3 TH/MM3 1.2 TH/MM3 Eosinophils # (Auto) 0.1 TH/MM3 0.1 TH/MM3 Basophils # (Auto) 0.1 TH/MM3 0.1 TH/MM3 CBC Comment AUTO DIFF AUTO DIFF Differential Comment AUTO DIFF AUTO DIFF CONFIRMED CONFIRMED Platelet Estimate NORMAL Platelet Morphology Comment ENLARGED Basophilic Stippling MOD Laboratory Tests Test 05/10/16 05/11/16 04:06 03:19 Sodium Level 153 MEQ/L 152 MEQ/L Potassium Level 4.5 MEQ/L 4.3 MEQ/L Chloride Level 123 MEQ/L 123 MEQ/L Carbon Dioxide Level 20.3 MEQ/L 20.7 MEQ/L Anion Gap 10 MEQ/L 8 MEQ/L Blood Urea Nitrogen 57 MG/DL 53 MG/DL Creatinine 1.21 MG/DL 1.01 MG/DL Estimat Glomerular Filtration 45 ML/MIN 55 ML/MIN Rate Random Glucose 91 MG/DL 172 MG/DL Calcium Level 8.4 MG/DL 8.0 MG/DL Total Bilirubin 0.4 MG/DL 0.3 MG/DL Aspartate Amino Transf 138 U/L 70 U/L (AST/SGOT) Alanine Aminotransferase 116 U/L 97 U/L (ALT/SGPT) Alkaline Phosphatase 72 U/L 76 U/L Total Protein 5.3 GM/DL 5.1 GM/DL Albumin 1.9 GM/DL 1.8 GM/DL Lipase 1486 U/L 1438 U/L Direct Bilirubin 0.1 MG/DL Indirect Bilirubin 0.2 MG/DL Microbiology Date/Time Procedure Status Source Growth 05/08/16 15:30 Urine Culture - Final Complete Urine Catheterized Urine NO GROWTH IN 48 HOURS. 05/08/16 15:40 Aerobic Blood Culture - Preliminary Resulted Blood Peripheral NO GROWTH IN 3 DAYS 05/08/16 15:40 Anaerobic Blood Culture - Preliminary Resulted Blood Peripheral NO GROWTH IN 3 DAYS 05/08/16 15:46 Aerobic Blood Culture - Preliminary Resulted Blood Peripheral NO GROWTH IN 3 DAYS 05/08/16 15:46 Anaerobic Blood Culture - Preliminary Resulted Blood Peripheral NO GROWTH IN 3 DAYS 05/08/16 20:45 Gram Stain - Final Complete Sputum Endotracheal 05/08/16 20:45 Sputum Culture - Final Complete Sputum Endotracheal HEAVY GROWTH NORMAL RESPIRATORY KIRTI 05/09/16 11:05 Gram Stain - Final Resulted Cerebral Spinal Fluid Shunt Fluid 05/09/16 11:05 CSF Culture - Preliminary Resulted Cerebral Spinal Fluid Shunt Fluid NO GROWTH IN 48 HOURS. 05/09/16 11:05 Fungal Smear - Final Resulted Cerebral Spinal Fluid Shunt Fluid NO FUNGAL ELEMENTS SEEN. 05/09/16 11:05 Fungal Culture Resulted Cerebral Spinal Fluid Shunt Fluid Pending 05/09/16 18:00 Wound Culture - Final Complete Catheter Tip Central Venous Line PHYSICAL EXAMINATION GENERAL: On the ventilator and sedated, unresponsive. HEENT: No icterus, oropharynx mucosa moist. LUNGS: Diminished breath sounds throughout. Little rhonchi at the bases. HEART: Regular S1S2. ABDOMEN: Obese. Soft. Decreased bowel sounds. EXTREMITIES: No clubbing or cyanosis. 2 + edema. SKIN: No rash. NEUROLOGICAL: Unable to fully assess. PSYCHIATRIC: Unable to fully assess. IMPRESSION 1. Persistent fever. Possible secondary to pulmonary infection versus sepsis versus central nervous system injury and possibly central fever. 2. Leukocytosis. Secondary to #1. 3. Cerebellar intracranial hemorrhage. 4. Acute respiratory failure. 5. Previous pneumonia due to Klebsiella. 6. Acute kidney disease. RECOMMENDATIONS 1. Continue aztreonam. 2. Continue vancomycin. 3. Continue Levaquin. 4. Repeat urinalysis and culture if indicated. 5. Monitor CSF culture. 6. Monitor temperature and white blood cell count. Sukhi Adan MD May 11, 2016 12:49
--- NOTE | 2016-05-11 13:48 | HHI.GIFU ---
Subjective Remarks Resting in bed. Sedated on vent. Dobhoff placed yesterday- KUB confirms placement. (Jayna Stein) Objective Vitals I&O Vital Signs Date Time Temp Pulse Resp B/P Pulse Ox O2 Delivery O2 Flow Rate FiO2 05/11/16 12:00 35 05/11/16 12:00 99.1 67 21 164/68 100 05/11/16 12:00 67 05/11/16 11:22 100 100 05/11/16 10:00 84 05/11/16 08:45 99 35 05/11/16 08:45 35 05/11/16 08:00 35 05/11/16 08:00 74 05/11/16 08:00 99.6 74 16 138/52 100 05/11/16 06:00 72 05/11/16 04:07 98 35 05/11/16 04:00 74 05/11/16 04:00 100.1 74 16 160/60 100 05/11/16 04:00 35 05/11/16 02:00 86 05/11/16 01:23 99 35 05/11/16 01:17 100 40 05/11/16 01:10 35 05/11/16 00:00 78 05/11/16 00:00 40 05/11/16 00:00 100.0 86 22 164/58 98 05/10/16 22:00 75 05/10/16 20:00 40 05/10/16 20:00 101.4 82 24 162/60 100 05/10/16 20:00 82 05/10/16 19:20 94 40 05/10/16 18:00 80 05/10/16 16:04 100 40 05/10/16 16:00 100.7 63 22 104/44 100 05/10/16 16:00 40 05/10/16 16:00 63 05/10/16 15:30 99.0 84 23 157/68 100 05/10/16 14:00 85 I/O 05/10/16 05/10/16 05/10/16 05/11/16 05/11/16 05/11/16 07:00 15:00 23:00 07:00 15:00 23:00 Intake Total 446 ml 1137 ml 433 ml 505 ml Output Total 910 ml 844 ml 966 ml 166 ml Balance -464 ml 293 ml -533 ml 339 ml Intake IV Total 386 ml 767 ml 313 ml 385 ml Tube Feeding 0 ml 0 ml 0 ml Packed Cells 250 ml Other 60 ml 120 ml 120 ml 120 ml Output Urine Total 850 ml 800 ml 900 ml 100 ml Drainage Total 60 ml 44 ml 66 ml 66 ml # Bowel Movements 2 2 2 3 Laboratory Laboratory Tests Test 05/10/16 05/11/16 05/11/16 05/11/16 15:30 03:19 04:15 07:00 Hemoglobin 7.7 7.2 White Blood Count 17.0 Red Blood Count 2.53 Hematocrit 22.5 Mean Corpuscular Volume 89.1 Mean Corpuscular Hemoglobin 28.5 Mean Corpuscular Hemoglobin 32.0 Concent Red Cell Distribution Width 14.6 Platelet Count 181 Mean Platelet Volume 11.0 Neutrophils (%) (Auto) 76.8 Lymphocytes (%) (Auto) 15.1 Monocytes (%) (Auto) 7.0 Eosinophils (%) (Auto) 0.6 Basophils (%) (Auto) 0.5 Neutrophils # (Auto) 13.1 Lymphocytes # (Auto) 2.6 Monocytes # (Auto) 1.2 Eosinophils # (Auto) 0.1 Basophils # (Auto) 0.1 CBC Comment AUTO DIFF Differential Comment AUTO DIFF CONFIRMED Sodium Level 152 Potassium Level 4.3 Chloride Level 123 Carbon Dioxide Level 20.7 Anion Gap 8 Blood Urea Nitrogen 53 Creatinine 1.01 Estimat Glomerular Filtration 55 Rate Random Glucose 172 Calcium Level 8.0 Total Bilirubin 0.3 Direct Bilirubin 0.1 Indirect Bilirubin 0.2 Aspartate Amino Transf 70 (AST/SGOT) Alanine Aminotransferase 97 (ALT/SGPT) Alkaline Phosphatase 76 Total Protein 5.1 Albumin 1.8 Lipase 1438 Blood Gas Puncture Site ART LINE Blood Gas Patient Temperature 98.6 Blood Gas HCO3 19 Blood Gas Base Excess -5.2 Blood Gas Oxygen Saturation 96 Arterial Blood pH 7.40 Arterial Blood Partial 31 Pressure CO2 Arterial Blood Partial 129 Pressure O2 Arterial Blood Oxygen Content 16.0 Arterial Blood 1.2 Carboxyhemoglobin Arterial Blood Methemoglobin 0.9 Blood Gas Hemoglobin 11.7 Oxygen Delivery Device VENTILATOR Blood Gas Ventilator Setting PRVC/AC/ Blood Gas Inspired Oxygen 35 Blood Type O NEGATIVE Crossmatch Leukocyte-Reduced Red Blood Cells Blood Bank Comment Test 05/11/16 10:53 Crossmatch Leukocyte-Reduced Red Blood Cells Blood Bank Comment Date/Time Procedure Status Source Growth 05/09/16 18:00 Wound Culture - Final Complete Catheter Tip Central Venous Line 05/09/16 11:05 Gram Stain - Final Resulted Cerebral Spinal Fluid Shunt Fluid 05/09/16 11:05 CSF Culture - Preliminary Resulted Cerebral Spinal Fluid Shunt Fluid NO GROWTH IN 48 HOURS. 05/09/16 11:05 Fungal Smear - Final Resulted Cerebral Spinal Fluid Shunt Fluid NO FUNGAL ELEMENTS SEEN. 05/09/16 11:05 Fungal Culture Resulted Cerebral Spinal Fluid Shunt Fluid Pending 05/08/16 15:46 Aerobic Blood Culture - Preliminary Resulted Blood Peripheral NO GROWTH IN 3 DAYS 05/08/16 15:46 Anaerobic Blood Culture - Preliminary Resulted Blood Peripheral NO GROWTH IN 3 DAYS 05/08/16 15:30 Urine Culture - Final Complete Urine Catheterized Urine NO GROWTH IN 48 HOURS. Imaging Last Impressions Chest X-Ray 05/10/16 0600 Signed Impressions: Service Date/Time: Tuesday, May 10, 2016 05:01 - CONCLUSION: Clear lungs. Cesar Meza MD Abdomen X-Ray 05/10/16 0000 Signed Impressions: Service Date/Time: Tuesday, May 10, 2016 13:29 - CONCLUSION: Tip of the feeding tube is noted within the expected region of the proximal duodenum. Enzo Umana MD Head CT 05/09/16 0315 Signed Impressions: Service Date/Time: Monday, May 09, 2016 03:31 - CONCLUSION: 1. No significant interval change is appreciated. The ventricles are slightly larger than on the prior study from 4 days ago but overall there is no ventriculomegaly. No herniation or midline shift is present. 2. Stable posterior fossa changes including occipital craniectomy with edema and blood products within the cerebellum and blood products within the ventricular system. 3. Fluid and mucoperiosteal thickening throughout the paranasal sinuses. This may be related to the intubation. Haim Myo MD Upper Extremity Ultrasound 05/09/16 0000 Signed Impressions: Service Date/Time: Monday, May 09, 2016 11:54 - CONCLUSION: No DVT in either arm. Satnana Mena MD Lower Extremity Ultrasound 05/09/16 0000 Signed Impressions: Service Date/Time: Monday, May 09, 2016 11:29 - CONCLUSION: No DVT in either leg. Santana Mena MD Abdomen/Pelvis CT 05/09/16 0000 Signed Impressions: Service Date/Time: Monday, May 09, 2016 23:37 - CONCLUSION: 1. Body wall edema, hepatomegaly and chronic pancreatitis calcifications are seen as well as mild peripancreatic edema and fluid consistent with superimposed mild acute pancreatitis. 2. Nonobstructing renal calculi. 3. Bilateral pleural effusions. 4. Atherosclerosis. Cesar Meza MD Physical Exam HEENT: Ventriculostomy CHEST: CTA, OETT to vent. CARDIAC: RRR ABDOMEN: Soft, nondistended, nontender; no hepatosplenomegaly; bowel sounds are present in all four quadrants. OGT-clamped. EXTREMITIES: Generalized edema. SKIN: Generalized pallor FURNACE MAINTENANCE: Sedated on vent (Jayna Stein) Assessment and Plan Plan ASSESSMENT: - Acute on chronic pancreatitis. Abdomen/Pelvis CT (05/09/16)----> 1. Body wall edema, hepatomegaly and chronic pancreatitis calcifications are seen as well as mild peripancreatic edema and fluid consistent with superimposed mild acute pancreatitis. 2. Nonobstructing renal calculi. 3. Bilateral pleural effusions. 4. Atherosclerosis. She is on Albiglutide at home, which can cause pancreatitis- although she seems to have evidence of chronic pancreatitis on CT imaging. She does have a hx of lupus and some questionable hx of colitis, raising the possibility of autoimmune pancreatitis. ASMA, IgG 4 level pending. S/P Dobhoff placement- kub confirms placement. Monitor. - Leukocytosis. WBC 17.0 - LFTs elevation. Improving. - Anemia, with Hgb trending down. 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 Then had EGD/colonoscopy (03/15/15)---> no evidence of upper bleed, colonoscopy revealed active bleeding through out the colon with poor visualization. S/P bleed scan (03/14/15) positive potentially duodenal. S/P Angiogram of GDA , right colic, ileocolic, and SMA (03/14/15)----> No evidence of active GI bleed. Rpt. Colonoscopy (03/17/15)---> Colonic polyp, rectal ulcer, indurated area in ascending colon biopsied. Pathology of rectum with features suspicious for quiescent chronic colitis, cecal biopsy with focal adenomatous change with severe glandular dysplasia and features consistent with ulceration, ascending colon with adenomatous mucosa with mild glandular dysplasia- Per commend, the possibility of dysplasia-associated lesions arising in derrell background of inflammatory bowel disease should be considered. H/H was slowly trending down, but no obvious active bleeding. HH stable today 7.2/22.5. - Cerebellar intracranial hemorrhage. S/P suboccipital craniectomy and evacuation cerebellar intracrainal hemorrhage, ventriculostomy placement. Per Nsx. - Acute respiratory failure. Vent per CCM. PLAN: - Start Vital HP at 30cc/hr and increase to 50cc/hr via Dobhoff - Monitor HH - Transfuse as necessary - Await ASMA - Await IgG 4 level - Monitor LFTs - Notify GI of active bleeding - Supportive care - Further recommendations to follow based on results of above - Pt seen and examined by Dr. Frazier and myself and this note is written on his behalf RECOMMENDATIONS 1. Await CT of the abdomen 2. Continue with antibiotics 3. Agree with current supportive measures 4. Recommend hydration 5. Monitor labs (Jayna Stein) Physician Comments Seen and examined with Ms. Emil NEGRON, start slow TF today via DBT. Repeat ct noted. (Sadaf Frazier MD) Jayna Stein May 11, 2016 13:47 Sadaf Frazier MD May 11, 2016 17:39
[2016-05-11 18:52] LABS: BACTERIA, URINE OCC /hpf; BLOOD, URINE NEG (NEG); GLUCOSE,URINE NEG (NEG); HYALINE CAST, URINE 4 /lpf (RARE); KETONE, URINE NEG (NEG); NITRITE,URINE NEG (NEG); URINE COLOR YELLOW (YELLW/STRAW)
[2016-05-11 18:53] LABS: COMMENT (UR) CATH-CULTURE IND; CULTURE IF INDICATED CATH CULTURE IND
[2016-05-12] VITALS (19 sets, daily range): BP systolic 136–167; BP diastolic 52–80; PULSE 66–89; RESP 19–24; TEMP 98.5–99.4; O2SAT 94–100
[2016-05-12] MEDS: LABETALOL HCL 100 MG/20 ML VIAL IVS PRN ×5 (00:02→06:13)
[2016-05-12 00:28] LABS: HEMATOCRIT 26.9 % (35.0-46.0); REVIEW FLAG FINAL
[2016-05-12] MEDS: levETIRAcetam INJ 500 MG in SODIUM CHLORIDE 0.9% INJ 100 ML IV SCH ×2 (01:54→12:32)
[2016-05-12] MEDS: ACETAMINOPHEN 650 MG/20.3 ML UDC PO SCH ×3 (01:54→16:04)
[2016-05-12] MEDS: INSULIN ASPART SUPPLEMENTAL SCALE SQ SCH ×5 (04:00→20:00)
[2016-05-12] MEDS: CHLORHEXIDINE GLUCONATE 2 % 1 PACK (2 CLOTHS) TOP SCH (04:00)
[2016-05-12 04:26] LABS: HEMATOCRIT 26.4 % (35.0-46.0); MEAN CELL VOLUME 87.7 FL (80.0-100.0); MEAN CORPUSCULAR HEMOGLOBIN 28.8 PG (27.0-34.0); MEAN CORPUSCULAR HGB CONC 32.9 % (32.0-36.0); PLATELET COUNT 195 TH/MM3 (150-450); RED BLOOD COUNT 3.01 MIL/MM3 (4.00-5.30); RED CELL DISTRIBUTION WIDTH 15.1 % (11.6-17.2); REVIEW FLAG FINAL; WHITE BLOOD COUNT 14.2 TH/MM3 (4.0-11.0)
[2016-05-12 04:50] LABS: BICARBONATE 19.9 MEQ/L (21.0-32.0)
[2016-05-12] MEDS: hydrALAZINE HCL 20 MG/ML VIAL IV PUSH PRN (05:20)
[2016-05-12] MEDS: niCARdipine INJ 50 MG in SODIUM CHLORID 0.9% 500 ML INJ 480 ML IV SCH ×3 (05:20→09:13)
[2016-05-12] MEDS: LABETALOL HCL 200 MG TAB PO SCH ×3 (05:20→22:31)
[2016-05-12] MEDS ORDERED: SODIUM CHLOR 0.9% 250 ML INJ 250 ML ONE ×2 (06:09→09:07)
[2016-05-12] MEDS: AZTREONAM INJ 1,000 MG in SODIUM CHLORIDE 0.9% INJ 100 ML IV SCH ×3 (06:12→22:31)
[2016-05-12] MEDS: BISACODYL 10 MG SUPP RECTAL SCH (08:04)
[2016-05-12] MEDS: ARTIFICIAL TEARS OPTH SOLN 15 ML BTL EACH EYE SCH ×3 (09:00→18:00)
[2016-05-12] MEDS: INSULIN DETEMIR 100 UNITS/ML VIAL SQ SCH ×2 (09:00→22:30)
[2016-05-12] MEDS: POLYETHYLENE GLYCOL 17 GM PKG PO SCH ×2 (09:00→20:53)
[2016-05-12] MEDS: SODIUM CHLORIDE 0.9% FLUSH 5 ML FLUSH IVF SCH ×2 (09:00→21:00)
[2016-05-12] MEDS: LACTULOSE SYRUP 20 GM/30 ML CUP PO SCH ×2 (09:00→20:52)
[2016-05-12] MEDS: DOCUSATE SODIUM 50 MG/SENNA 8.6 MG TAB PO SCH ×2 (09:00→20:53)
[2016-05-12] MEDS: FAMOTIDINE 20 MG TAB PO SCH ×2 (09:23→20:53)
[2016-05-12] MEDS ORDERED: PHARMACY ORDERED LAB XX ONE (10:45)
[2016-05-12] MEDS: LEVOFLOXACIN 750 MG PREMIX INJ 150 ML IV SCH (11:45)
[2016-05-12] MEDS: MIDAZOLAM 100 MG/ML INJ 100 ML IV SCH ×2 (11:45→20:54)
[2016-05-12] MEDS: VANCOMYCIN INJ 1,250 MG in SODIUM CHLOR 0.9% 250 ML INJ 250 ML IV SCH (12:32)
--- NOTE | 2016-05-12 13:09 | HHI.CCPN ---
Subjective Remarks/Hospital Course 05/03: 65 years old female was brought in by EMS for stroke alert. Patient has history of multiple strokes in the past. Patient has residual left-sided weakness from the strokes. Patient has an Antiphospholipid syndrome and is on Coumadin. Patient was sitting down watching TV with her then patient started became more unresponsive, having aphasia, nausea vomiting, dizziness, increasing left-sided weakness. EMS was called. Patient was brought to ED stroke alert. CT head revealed large posterior fossa ICH. 05/04: Remains sedated, orally intubated on mechanical ventilation. Underwent suboccipital decompression on 05/03. Ventriculostomy in place. ICPs below 10. Drained 150 cc CSF overnight 05/05: acutely this afternoon, her SBP increased from 150s to 200s. neuro exam unchanged, remains sedated on propofol without sedation vacation today per nsgy. pupillary exam unchanged, 2mm equal, reactive. required labetalol 60mg iv , esmolol 150mcg/kg/min, and cardene 15mg/hr to bring back down to goal SBP 150s. EVD still at 0 per nsgy. ICP in lateral ventricles 1. 05/06: severely hypertensive and febrile. re-cultured overnight. sputum growing GNR. 05/07: Patient remains hypertensive currently on nicardipine and esmolol infusions. Instructions given to titrated up nicardipine, start Norvasc 5 mg daily. Sputum culture with pansensitive Klebsiella. at the bedside updated 05/08: No improvement in neuro status. Continues to spike fever 103.3 MAXIMUM TEMPERATURE. Off nicardipine and esmolol. We'll start scheduled Tylenol and cooling blanket. repeat bruce culture 05/09: Continues to have persistent fever MAXIMUM TEMPERATURE 102, white count remains at 16,000. ID consulted also have ordered a lipase, US liver, venous ultrasound of all extremities. I will also change the central line, and give single dose of vancomycin 05/10: MAXIMUM TEMPERATURE is 102, but currently afebrile. Hemoglobin dropped to 6.8, WBC count 17.1. Sodium 152. Neuro exam remains unchanged. Venous ultrasound negative. Appreciate ID and GI consult. Started on Levophed 4 mcg/ min today 05/11: Tmax 101.4, but fever trending down. WBC 17. Hb 7.2. Transfuse 1U PRBC. Na 150. Off Levophed now, hypertensive. BP Labile. All cultures negative 05/12: Afebrile white count trending down 14,000 today. Restart her on Cardene infusion for hypotension. Plan for OR trach today by Dr. Mcfarlane Objective Vital Signs Date Time Temp Pulse Resp B/P Pulse Ox O2 Delivery O2 Flow Rate FiO2 05/12/16 10:48 100 35 05/12/16 06:00 76 05/12/16 04:00 98.8 22 162/61 Intake and Output 05/11/16 05/11/16 05/12/16 08:00 16:00 00:00 Intake Total 505 ml 1050 ml 561 ml Output Total 166 ml 1100 ml 860 ml Balance 339 ml -50 ml -299 ml Result Diagram: 05/12/16 0402 05/12/16 0402 Other Results Microbiology Date/Time Procedure Status Source Growth 05/09/16 18:00 Wound Culture - Final Complete Catheter Tip Central Venous Line Imaging Last [address] 05/03/16 0000 Signed Impressions: Service Date/Time: Tuesday, May 03, 2016 01:18 - CONCLUSION: Large acute posterior fossa hemorrhage. There is also blood in the fourth and third ventricles. Report was called to Dr. Rodrigues at 1:30 AM. Haim Anaya MD Chest X-Ray 05/03/16 0000 Signed Impressions: Service Date/Time: Tuesday, May 03, 2016 01:53 - CONCLUSION: 1. Endotracheal tube tip is about 1.5 cm above the luis antonio. 2. Nasogastric tube courses into the stomach. 3. Lungs reasonably clear. Haim Anaya MD Objective Remarks HEENT: Pupils R 3mm L 2 mm, reactive to light. Orotracheally intubated Neck: Thick neck limits JVD exam Chest/Pulm: on mech vent, good air entry bilaterally, no wheezing or crackles CVS: S1-S2 regular, no murmur GI/abdomen: soft, nontender, bowel sounds sluggish Extremities: warm bilaterally, no edema Neuro: Sedated, orally intubated, Pallor present, no icterus, tongue/ mucosa moist. Pupils R 3mm L 2 mm, reactive to light. Ventriculostomy in place at 0. Withdraws bilateral lower extremities to pain, upper extremity remains flaccid A/P Problem List: (1) Intracranial hemorrhage ICD Code: I62.9 Status: Acute (2) Respiratory failure with hypoxia ICD Code: J96.91 Status: Acute (3) Hypertension ICD Code: I10 Status: Acute (4) Atrial fibrillation ICD Code: I48.91 Status: Acute (5) Coagulopathy ICD Code: D68.9 Status: Acute (6) Diabetes ICD Code: E11.9 Status: Acute Assessment and Plan Neuro: Intracranial hemorrhagic stroke/large acute posterior fossa hemorrhage with intraventricular extension Acute encephalopathy - s/p posterior decompression on 05/04 - 3% NS DCd as the NA >150 - EVD, monitor ICP. Keppra for seizure prophylaxis. NeurosurgeryDr. Kathy - Intermittently on Levophed/Cardene for rapid fluctuations in BP - Scheduled Tylenol for fever Resp: Acute hypoxic and hypercarbic Respiratory failure - Intubated for airway protection, continue mechanical ventilation. End tidal Co2 - No weaning until neurologically improved, BP better controlled - Plan for tracheostomy 05/12/16. with Dr. Sindhu Pinedo `q 6 hour and PRN CVS Hypotension Previously Hypertension - Currently on Cardene infusion for blood pressure-getting weaned off - Off esmolol gtt. Hold labetalol 300mg po q8h, Norvasc to 10 mg daily - Hydralazine 20mg iv q20min and labetalol 20mg iv q1h for SBP >180 - Metoprolol 5mg iv q4h prn for HR > 100. - SBP goal 140-150, but remains very labile A.Fib - rate controlled - Lopressor i.v. labetalol PO HEME Coagulopathy - reversed Coumadin with Vit K, FFP and Kcentra - Follow INR ENDO DM -Levemir to 50 units [id number]. High-dose sliding scale insulin. 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 - EGD/colonoscopy 03/15/15- no evidence of upper bleed, colonoscopy revealed active bleeding through out the colon with poor visualization. - S/P bleed scan 03/14/15- positive potentially duodenal. S/P Angiogram of GDA, right colic, ileocolic, and SMA - Rpt. Colonoscopy (03/17/15)---> Colonic polyp, rectal ulcer, indurated area in ascending colon biopsied ID Persistent fever/leukocytosis - Leukocytosis noted. bruce cultured-neg to date. Continue vancomycin Azactam and Levaquin. ID Dr. Sanderson - Pansensitive Klebsiella in sputum. patient had witnessed aspiration event in OR per nursing report. - Changed central line 05/09/16 DVT/GI prophylaxis - TEDs/SCDs/Pepcid Critical Care: The total critical care time was 40 minutes. Time to perform other separately billable procedures was not included in the critical care time. Problem Qualifiers (1) Respiratory failure with hypoxia: Qualified Code: J96.01 - Acute respiratory failure with hypoxia Deidre Whitmore MD May 12, 2016 13:09
--- NOTE | 2016-05-12 13:17 | HHI.NSPN ---
(Bri Merchant) Note Status Status: Progress Note (Bri Merchant) Interval History Interval History This is a 65 year old female brought in by EMS as a stroke alert. She has history of multiple ischemic strokes in the past with residual left-sided weakness from the strokes. Patient has a history of Antiphospholipid syndrome and is on anticoagulated Coumadin. Apparently she was sitting down watching TV with her when she became unresponsive, with aphasia, nausea vomiting, dizziness, and increasing left-sided weakness. She is a known tyoe II diabetic and appears to be uncontrolled in ketoacidosis. EMS was called. She was brought to ED stroke alert. CT head revealed a posterior fossa ICH. She underwent emergen posterior fossa craniectomy with evacuation of cerebellar bleed and placement of ventriculostomy drain on 05/03/16. 05/04: well sedated. Pupils equal. EVD at 0 cm H20, ICPs below 10. 05/05: ICPs remains within normal limits, pupils equal, ventriculostomy draining well. 05/06: hypertensive, BP was up in the 200's systolic yesterday, on cardene. Currently running 150s. ICPs normal, EVD draining well. serum sodium 148. well sedated also for bp control. 05/07: intubated, sedated, pupils equal. EEG no ictal abnormalities. 05/10: EVD draining well, ICPs within normal limits. intubated and sedated on versed, no eye opening still. Fevers better, now with acute on chronic pancreatitis. CSF cultures pending. 05/11: no clinical changes, for trach/PEG today. 05/12: going for tracheostomy, ICPs wnl following raising of EVD to 5 cm yesterday (Bri Merchant) Labs, Micro, & Vital Signs Results Date Time Temp Pulse Resp B/P Pulse Ox O2 Delivery O2 Flow Rate FiO2 05/12/16 10:48 100 35 05/12/16 08:41 100 35 05/12/16 06:00 76 05/12/16 04:00 66 05/12/16 04:00 35 05/12/16 04:00 98.8 66 22 162/61 100 05/12/16 03:52 100 35 05/12/16 02:00 67 05/12/16 00:35 99 35 05/12/16 00:00 72 05/12/16 00:00 35 05/12/16 00:00 98.8 72 22 167/59 100 05/11/16 22:00 88 05/11/16 20:12 100 35 05/11/16 20:00 35 05/11/16 20:00 98.9 66 20 158/62 100 05/11/16 20:00 66 05/11/16 18:00 66 05/11/16 16:10 100 40 05/11/16 16:00 74 05/11/16 16:00 99.0 74 20 189/66 100 05/11/16 16:00 35 05/11/16 14:00 66 05/12/16 07:00 Intake Total 2707 ml Output Total 3082 ml Balance -375 ml Constitutional Vital Signs Date Time Temp Pulse Resp B/P Pulse Ox O2 Delivery O2 Flow Rate FiO2 05/12/16 10:48 100 35 05/12/16 08:41 100 35 05/12/16 06:00 76 05/12/16 04:00 66 05/12/16 04:00 35 05/12/16 04:00 98.8 66 22 162/61 100 05/12/16 03:52 100 35 05/12/16 02:00 67 05/12/16 00:35 99 35 05/12/16 00:00 72 05/12/16 00:00 35 05/12/16 00:00 98.8 72 22 167/59 100 05/11/16 22:00 88 05/11/16 20:12 100 35 05/11/16 20:00 35 05/11/16 20:00 98.9 66 20 158/62 100 05/11/16 20:00 66 05/11/16 18:00 66 05/11/16 16:10 100 40 05/11/16 16:00 74 05/11/16 16:00 99.0 74 20 189/66 100 05/11/16 16:00 35 05/11/16 14:00 66 05/12/16 07:00 Intake Total 2707 ml Output Total 3082 ml Balance -375 ml (Bri Merchant) Review of Systems/Exam Exam Ms. Spann is intubated and sedated. No eye opening, no purposeful movements. Right EVD in place at 5 cm H20, draining yellow CSF. ICPs below 10. Cranial Nerves: Pupils 4 mm bilateral, reactive to light. Sensorimotor: muscle tone and bulk are normal. No response deep pain upper extremities, minimal withdrawal deep pain lower extremities Reflexes: Plantars silent b/l Cerebellar: unable to assess Diffuse extremity swelling (Bri Merchant) Medications Current Medications Current Medications Medications (Trade) Dose Ordered Sig/Michelle Route PRN Reason Start Time Stop Time Status Last Admin Dose Admin Artificial Tears (Tears Naturale Opth Soln) 1 drop TID EACH EYE 05/03/16 09:00 05/12/16 12:32 Ondansetron HCl (Zofran Inj) 4 mg Q6H PRN IV NAUSEA OR VOMITING 05/03/16 04:30 Miscellaneous Information 1 Q361D XX 05/03/16 04:30 05/03/16 04:30 Chlorhexidine Gluconate (Chlorhexidine 2% Cloth) Taper DAILY@04 TOP 05/04/16 04:00 04/30/17 03:59 05/09/16 04:00 Chlorhexidine Gluconate (Chlorhexidine 2% Cloth) 3 pack UNSCH PRN TOP HYGIENIC CARE 05/03/16 04:30 IV Flush (NS Flush) 2 ml UNSCH PRN IVF FLUSH AFTER USING IV ACCESS 05/03/16 12:30 05/10/16 01:48 IV Flush 2 ml 2 ml BID IVF 05/03/16 21:00 05/12/16 09:00 Levetriacetam/ Sodium Chloride (Keppra Inj/NS Inj) 105 ml @ 400 mls/hr Q12H IV 05/03/16 13:00 05/12/16 12:32 Calcium Gluconate 1 gm 1 gm UNSCH PRN IV SEE LABEL COMMENTS 05/03/16 12:30 Potassium Chloride 100 ml @ 50 mls/hr UNSCH PRN IV POTASSIUM LESS THAN 4 05/03/16 12:30 05/04/16 06:56 Magnesium Sulfate/ Sodium Chloride (Magnesium Sulfate Inj/NS Inj) 108 ml @ 108 mls/hr UNSCH PRN IV MAGNESIUM LESS THAN 2 05/03/16 12:30 Acetaminophen 650 mg 650 mg Q4H PRN PO TEMPERATURE > 101.5 F 05/03/16 12:30 05/08/16 10:38 Nicardipine HCl 50 mg/Sodium Chloride 500 ml @ 0 mls/hr TITRATE IV 05/03/16 18:17 05/12/16 09:13 Potassium Chloride 100 ml @ 50 mls/hr Q2H PRN IV For Potassium 2.8 - 3.2 mEq/L 05/04/16 08:45 Potassium Chloride (KCl 20 Meq Premix Inj) 100 ml @ 50 mls/hr Q2H PRN IV For Potassium 2.8 - 3.2 mEq/L 05/04/16 08:45 Potassium Chloride 40 meq 40 meq UNSCH PRN PO/TUBE For Potassium 3.3 - 3.5 mEq/L 05/04/16 08:45 Potassium Chloride 100 ml @ 25 mls/hr UNSCH PRN IV For Potassium 3.3 - 3.5 mEq/L 05/04/16 08:45 Potassium Chloride 100 ml @ 50 mls/hr Q2H PRN IV For Potassium 3.3 - 3.5 mEq/L 05/04/16 08:45 Magnesium Sulfate/ Sodium Chloride (Magnesium Sulfate Inj/NS Inj) 100 ml @ 50 mls/hr UNSCH PRN IV For Magnesium 0.9 - 1.1 mg/dL 05/04/16 08:45 Magnesium Oxide 800 mg 800 mg UNSCH PRN PO For Magnesium 1.2 - 1.6 mg/dL 05/04/16 08:45 Magnesium Sulfate/ Sodium Chloride (Magnesium Sulfate Inj/NS Inj) 100 ml @ 50 mls/hr UNSCH PRN IV For Magnesium 1.2 - 1.6 mg/dL 05/04/16 08:45 Potassium Phosphate 2000 mg 2,000 mg Q4H PRN PO For Phosphorus < 2.5 mg/dL 05/04/16 08:45 Sodium Phosphate/ Sodium Chloride (Sodium Phosphate Inj/NS 250 ml Inj) 250 ml @ 42 mls/hr UNSCH PRN IV For Phosphorus < 2.5 mg/dL 05/04/16 08:45 Potassium Chloride (KCl 40 Meq/30 ml Liq) 40 meq UNSCH PRN PO/TUBE SEE LABEL COMMENTS 05/04/16 08:45 Potassium Phosphate 2000 mg 2,000 mg UNSCH PRN PO/TUBE SEE LABEL COMMENTS 05/04/16 08:45 Potassium Phosphate/Sodium Chloride (Potassium Phosphate Inj/NS 250 ml Inj) 260 ml @ 42 mls/hr UNSCH PRN IV SEE LABEL COMMENTS 05/04/16 08:45 Insulin Aspart (NovoLOG SUPPLEMENTAL SCALE) 1 Q4HR SQ 05/04/16 12:00 05/08/16 20:26 Dextrose (D50w (Vial) Inj) 25 ml UNSCH PRN IV HYPOGLYCEMIA-SEE COMMENTS 05/04/16 08:45 05/09/16 20:21 Glucagon (Glucagon Inj) 1 mg UNSCH PRN IM/SQ HYPOGLYCEMIA-SEE COMMENTS 05/04/16 08:45 Insulin Detemir (Levemir Inj) 50 units Q12HR SQ 05/06/16 21:00 05/11/16 09:44 Labetalol HCl (Trandate Inj) 20 mg Q1H PRN IVS SBP greater than 160mm Hg 05/06/16 10:00 05/12/16 05:19 Metoprolol Tartrate (Lopressor Inj) 5 mg Q4H PRN IV PUSH HR > 100 05/06/16 11:00 Bisacodyl (Dulcolax Supp) 10 mg DAILY RECTAL 05/07/16 09:55 Polyethylene Glycol (Miralax) 17 gm BID PO 05/06/16 09:55 05/06/16 20:36 Lactulose (Lactulose Liq) 30 ml BID PO 05/06/16 11:00 05/06/16 20:35 Senna/Docusate Sodium (Meaghan-Colace) 1 tab BID PO 05/06/16 10:00 05/06/16 20:36 Famotidine (Pepcid) 10 mg BID PO 05/06/16 21:00 05/12/16 09:23 Labetalol HCl (Trandate) 300 mg Q8HR PO 05/06/16 11:00 05/10/16 13:23 Hydralazine HCl 10 mg 10 mg Q30M PRN IV PUSH SYS BP GREATER THAN 150 MMHG 05/06/16 10:00 05/12/16 05:20 Levofloxacin/ Dextrose (Levaquin 750 Mg Premix Inj) 150 ml @ 100 mls/hr Q48H IV 05/06/16 12:00 05/12/16 11:45 Miscellaneous (Pill Splitter) 1 ea UNSCH PRN OTHER SEE LABEL COMMENTS 05/06/16 21:00 Amlodipine Besylate 10 mg 10 mg DAILY PO 05/09/16 09:00 Hold Aztreonam 1000 mg/ Sodium Chloride 100 ml @ 200 mls/hr Q8H IV 05/08/16 22:45 05/12/16 06:12 Pharmacy Profile Note 0 ml @ 0 mls/hr UNSCH OTHER 05/09/16 14:45 Vancomycin HCl 1250 mg/Sodium Chloride 262.5 ml @ 250 mls/hr Q24H IV 05/10/16 11:00 05/12/16 12:32 Midazolam HCl (Versed Inj) 100 ml @ 0 mls/hr TITRATE IV 05/09/16 15:30 05/12/16 11:45 Acetaminophen 650 mg 650 mg Q6H PO 05/10/16 14:00 05/12/16 09:23 Norepinephrine Bitartrate (Levophed-Dextrose Drip) 250 ml @ 0 mls/hr TITRATE IV 05/10/16 21:45 05/12/16 06:12 (Bri Merchant) Medical Decision Making MDM Remarks 65 y/o female with cerebellar bleed coagulopathy with supratherapeutic INR, s/p Vitamin K and KCentra history of antiphospholipid antibody EEG reports no ictal activities Klebsiella Pneumonia (Bri Merchant) Plan Plan Remarks cont EVD challenge, raise to 7 cm H20 today with ICP monitoring going now for tracheostomy (rBi Merchant) Attending Statement The exam, history, and the medical decision-making described in the above note were completed with the assistance of the mid-level provider. I reviewed and agree with the findings presented. I attest that I had a [id number] encounter with the patient on the same day, and personally performed and documented my assessment and findings in the medical record. (Oumar Chavez MD) Bri Merchant May 12, 2016 13:17 Oumar Chavez MD May 13, 2016 14:04
[2016-05-12] MEDS ORDERED: EPINEPHrine HCL (1:10,000) 1 MG/10 ML SYRINGE ONE (13:34)
[2016-05-12] MEDS ORDERED: LIDOCAINE HCL 2% 100 MG/5 ML SYRINGE ONE (13:35)
[2016-05-12] MEDS ORDERED: ATROPINE SULFATE 1 MG/10 ML SYRINGE ONE (13:35)
--- NOTE | 2016-05-12 13:51 | HHI.IDPN ---
Note Infectious Disease Note Patient on the vent. Unresponsive. Afebrile. Ventriculostomy has link colored CSF. Plan for Trach today. Urine culture has piyush albicans. Diagnosed with cerebellar intracranial hemorrhage. The patient was admitted on 05/03/2016 as a stroke alert. Seen for high spiking fever. PAST MEDICAL HISTORY 1. Hypertension. 2. Atrial fibrillation. 3. Diabetes mellitus. 4. Antiphospholipid syndrome. 5. Cerebrovascular accident. 6. Cholecystectomy. 7. Total hysterectomy. 8. Kidney stones. ALLERGIES LATEX AND ROCEPHIN. MEDICATIONS 1. Aztreonam. 2. Vancomycin. 3. Levaquin. OBJECTIVE: Vital Signs Date Time Temp Pulse Resp B/P Pulse Ox O2 Delivery O2 Flow Rate FiO2 05/12/16 10:48 100 35 05/12/16 08:41 100 35 05/12/16 06:00 76 05/12/16 04:00 66 05/12/16 04:00 35 05/12/16 04:00 98.8 66 22 162/61 100 05/12/16 03:52 100 35 05/12/16 02:00 67 05/12/16 00:35 99 35 05/12/16 00:00 72 05/12/16 00:00 35 05/12/16 00:00 98.8 72 22 167/59 100 05/11/16 22:00 88 05/11/16 20:12 100 35 05/11/16 20:00 35 05/11/16 20:00 98.9 66 20 158/62 100 05/11/16 20:00 66 05/11/16 18:00 66 05/11/16 16:10 100 40 05/11/16 16:00 74 05/11/16 16:00 99.0 74 20 189/66 100 05/11/16 16:00 35 05/11/16 14:00 66 05/11/16 05/11/16 05/12/16 15:00 23:00 07:00 Intake Total 1050 ml 561 ml 1096 ml Output Total 1100 ml 860 ml 1122 ml Balance -50 ml -299 ml -26 ml Intake IV Total 800 ml 361 ml 968 ml Tube Feeding 0 ml 0 ml 68 ml Packed Cells 250 ml Other 0 ml 200 ml 60 ml Output Urine Total 1050 ml 800 ml 1050 ml Drainage Total 50 ml 60 ml 72 ml # Bowel Movements 1 2 2 Laboratory Tests Test 05/10/16 05/11/16 05/11/16 05/12/16 15:30 03:19 23:46 04:02 Hemoglobin 7.7 GM/DL 7.2 GM/DL 8.7 GM/DL 8.7 GM/DL White Blood Count 17.0 TH/MM3 14.2 TH/MM3 Red Blood Count 2.53 MIL/MM3 3.01 MIL/MM3 Hematocrit 22.5 % 26.9 % 26.4 % Mean Corpuscular Volume 89.1 FL 87.7 FL Mean Corpuscular Hemoglobin 28.5 PG 28.8 PG Mean Corpuscular Hemoglobin 32.0 % 32.9 % Concent Red Cell Distribution Width 14.6 % 15.1 % Platelet Count 181 TH/MM3 195 TH/MM3 Mean Platelet Volume 11.0 FL 11.5 FL Neutrophils (%) (Auto) 76.8 % Lymphocytes (%) (Auto) 15.1 % Monocytes (%) (Auto) 7.0 % Eosinophils (%) (Auto) 0.6 % Basophils (%) (Auto) 0.5 % Neutrophils # (Auto) 13.1 TH/MM3 Lymphocytes # (Auto) 2.6 TH/MM3 Monocytes # (Auto) 1.2 TH/MM3 Eosinophils # (Auto) 0.1 TH/MM3 Basophils # (Auto) 0.1 TH/MM3 CBC Comment AUTO DIFF Differential Comment AUTO DIFF CONFIRMED Laboratory Tests Test 05/11/16 05/12/16 03:19 04:02 Sodium Level 152 MEQ/L 152 MEQ/L Potassium Level 4.3 MEQ/L 4.0 MEQ/L Chloride Level 123 MEQ/L 123 MEQ/L Carbon Dioxide Level 20.7 MEQ/L 19.9 MEQ/L Anion Gap 8 MEQ/L 9 MEQ/L Blood Urea Nitrogen 53 MG/DL 40 MG/DL Creatinine 1.01 MG/DL 0.70 MG/DL Estimat Glomerular Filtration 55 ML/MIN 84 ML/MIN Rate Random Glucose 172 MG/DL 99 MG/DL Calcium Level 8.0 MG/DL 8.3 MG/DL Total Bilirubin 0.3 MG/DL Direct Bilirubin 0.1 MG/DL Indirect Bilirubin 0.2 MG/DL Aspartate Amino Transf 70 U/L (AST/SGOT) Alanine Aminotransferase 97 U/L (ALT/SGPT) Alkaline Phosphatase 76 U/L Total Protein 5.1 GM/DL Albumin 1.8 GM/DL Lipase 1438 U/L Microbiology Date/Time Procedure Status Source Growth 05/09/16 18:00 Wound Culture - Final Complete Catheter Tip Central Venous Line 05/11/16 18:30 Urine Culture - Preliminary Resulted Urine Catheterized Urine Piyush Albicans Microbiology Date/Time Procedure Status Source Growth 05/08/16 15:30 Urine Culture - Final Complete Urine Catheterized Urine NO GROWTH IN 48 HOURS. 05/08/16 15:40 Aerobic Blood Culture - Preliminary Resulted Blood Peripheral NO GROWTH IN 3 DAYS 05/08/16 15:40 Anaerobic Blood Culture - Preliminary Resulted Blood Peripheral NO GROWTH IN 3 DAYS 05/08/16 15:46 Aerobic Blood Culture - Preliminary Resulted Blood Peripheral NO GROWTH IN 3 DAYS 05/08/16 15:46 Anaerobic Blood Culture - Preliminary Resulted Blood Peripheral NO GROWTH IN 3 DAYS 05/08/16 20:45 Gram Stain - Final Complete Sputum Endotracheal 05/08/16 20:45 Sputum Culture - Final Complete Sputum Endotracheal HEAVY GROWTH NORMAL RESPIRATORY KIRTI 05/09/16 11:05 Gram Stain - Final Resulted Cerebral Spinal Fluid Shunt Fluid 05/09/16 11:05 CSF Culture - Preliminary Resulted Cerebral Spinal Fluid Shunt Fluid NO GROWTH IN 48 HOURS. 05/09/16 11:05 Fungal Smear - Final Resulted Cerebral Spinal Fluid Shunt Fluid NO FUNGAL ELEMENTS SEEN. 05/09/16 11:05 Fungal Culture Resulted Cerebral Spinal Fluid Shunt Fluid Pending 05/09/16 18:00 Wound Culture - Final Complete Catheter Tip Central Venous Line PHYSICAL EXAMINATION GENERAL: On the ventilator and sedated, unresponsive. HEENT: No icterus, oropharynx mucosa moist. LUNGS: Diminished breath sounds. HEART: Regular S1S2. ABDOMEN: Obese. Soft. Decreased bowel sounds. EXTREMITIES: No clubbing or cyanosis. 2 + edema. SKIN: No rash. NEUROLOGICAL: Unable to fully assess. PSYCHIATRIC: Unable to fully assess. IMPRESSION 1. Persistent fever. Possible secondary to pulmonary infection versus sepsis versus central nervous system injury and possibly central fever. 2. Leukocytosis. Secondary to #1. 3. Cerebellar intracranial hemorrhage. 4. Acute respiratory failure. 5. Previous pneumonia due to Klebsiella. 6. Acute kidney disease. RECOMMENDATIONS 1. Continue aztreonam. 2. Continue vancomycin. 3. Continue Levaquin. 4. Add Diflucan for Piyush. 5. Monitor CSF culture. 6. Monitor temperature and white blood cell count. Sukhi Adan MD May 12, 2016 13:51
[2016-05-12] MEDS ORDERED: SODIUM CHLORIDE 0.9% 20 ML VIAL ONE (14:13)
[2016-05-12] MEDS: LIDOCAINE 1%/EPINEPHrine 1:100,000 SOLN 20 ML VIAL ONE (14:29)
[2016-05-12] MEDS ORDERED: fentaNYL CITRATE 250 MCG/5 ML AMP ONE (15:24)
--- NOTE | 2016-05-12 15:55 | HHI.GIFU ---
Subjective Remarks Resting in bed. Just getting back from OR, had tracheostomy placed. No distress. on floor, discussed with him G/J tube, he is agreeable. ( Jayna Stein) Objective Vitals I&O Vital Signs Date Time Temp Pulse Resp B/P Pulse Ox O2 Delivery O2 Flow Rate FiO2 05/12/16 13:53 99 100 05/12/16 10:48 100 35 05/12/16 08:41 100 35 05/12/16 06:00 76 05/12/16 04:00 66 05/12/16 04:00 35 05/12/16 04:00 98.8 66 22 162/61 100 05/12/16 03:52 100 35 05/12/16 02:00 67 05/12/16 00:35 99 35 05/12/16 00:00 72 05/12/16 00:00 35 05/12/16 00:00 98.8 72 22 167/59 100 05/11/16 22:00 88 05/11/16 20:12 100 35 05/11/16 20:00 35 05/11/16 20:00 98.9 66 20 158/62 100 05/11/16 20:00 66 05/11/16 18:00 66 05/11/16 16:10 100 40 05/11/16 16:00 74 05/11/16 16:00 99.0 74 20 189/66 100 05/11/16 16:00 35 I/O 05/11/16 05/11/16 05/11/16 05/12/16 05/12/16 05/12/16 07:00 15:00 23:00 07:00 15:00 23:00 Intake Total 505 ml 1050 ml 561 ml 1096 ml Output Total 166 ml 1100 ml 860 ml 1122 ml Balance 339 ml -50 ml -299 ml -26 ml Intake IV Total 385 ml 800 ml 361 ml 968 ml Tube Feeding 0 ml 0 ml 0 ml 68 ml Packed Cells 250 ml Other 120 ml 0 ml 200 ml 60 ml Output Urine Total 100 ml 1050 ml 800 ml 1050 ml Drainage Total 66 ml 50 ml 60 ml 72 ml # Bowel Movements 3 1 2 2 Laboratory Laboratory Tests Test 05/11/16 05/11/16 05/12/16 05/12/16 18:30 23:46 04:02 12:00 Urine Color YELLOW Urine Turbidity HAZY Urine pH 5.0 Urine Specific Vevay 1.025 Urine Protein TRACE Urine Glucose (UA) NEG Urine Ketones NEG Urine Occult Blood NEG Urine Nitrite NEG Urine Bilirubin NEG Urine Urobilinogen LESS THAN 2.0 Urine Leukocyte Esterase LARGE Urine RBC 11 Urine WBC 72 Urine Bacteria OCC Urine Hyaline Casts 4 Urine Yeast with Hyphae MOD Urine Yeast (Budding) MOD Microscopic Urinalysis Comment CATH-CULTURE IND Hemoglobin 8.7 8.7 Hematocrit 26.9 26.4 White Blood Count 14.2 Red Blood Count 3.01 Mean Corpuscular Volume 87.7 Mean Corpuscular Hemoglobin 28.8 Mean Corpuscular Hemoglobin 32.9 Concent Red Cell Distribution Width 15.1 Platelet Count 195 Mean Platelet Volume 11.5 Sodium Level 152 Potassium Level 4.0 Chloride Level 123 Carbon Dioxide Level 19.9 Anion Gap 9 Blood Urea Nitrogen 40 Creatinine 0.70 Estimat Glomerular Filtration 84 Rate Random Glucose 99 Calcium Level 8.3 Vancomycin Level Trough 6.5 Date/Time Procedure Status Source Growth 05/11/16 18:30 Urine Culture - Preliminary Resulted Urine Catheterized Urine Annemarie Albicans 05/09/16 18:00 Wound Culture - Final Complete Catheter Tip Central Venous Line 05/09/16 11:05 Gram Stain - Final Complete Cerebral Spinal Fluid Shunt Fluid 05/09/16 11:05 CSF Culture - Final Complete Cerebral Spinal Fluid Shunt Fluid NO GROWTH IN 72 HOURS 05/09/16 11:05 Fungal Smear - Final Resulted Cerebral Spinal Fluid Shunt Fluid NO FUNGAL ELEMENTS SEEN. 05/09/16 11:05 Fungal Culture Resulted Cerebral Spinal Fluid Shunt Fluid Pending 05/08/16 15:46 Aerobic Blood Culture - Preliminary Resulted Blood Peripheral NO GROWTH IN 4 DAYS 05/08/16 15:46 Anaerobic Blood Culture - Preliminary Resulted Blood Peripheral NO GROWTH IN 4 DAYS 05/08/16 15:30 Urine Culture - Final Complete Urine Catheterized Urine NO GROWTH IN 48 HOURS. Imaging Last Impressions Chest X-Ray 05/10/16 0600 Signed Impressions: Service Date/Time: Tuesday, May 10, 2016 05:01 - CONCLUSION: Clear lungs. Cesar Meza MD Abdomen X-Ray 05/10/16 0000 Signed Impressions: Service Date/Time: Tuesday, May 10, 2016 13:29 - CONCLUSION: Tip of the feeding tube is noted within the expected region of the proximal duodenum. Enzo Umana MD Head CT 05/09/16 0315 Signed Impressions: Service Date/Time: Monday, May 09, 2016 03:31 - CONCLUSION: 1. No significant interval change is appreciated. The ventricles are slightly larger than on the prior study from 4 days ago but overall there is no ventriculomegaly. No herniation or midline shift is present. 2. Stable posterior fossa changes including occipital craniectomy with edema and blood products within the cerebellum and blood products within the ventricular system. 3. Fluid and mucoperiosteal thickening throughout the paranasal sinuses. This may be related to the intubation. Haim Moy MD Upper Extremity Ultrasound 05/09/16 0000 Signed Impressions: Service Date/Time: Monday, May 09, 2016 11:54 - CONCLUSION: No DVT in either arm. Santana Mena MD Lower Extremity Ultrasound 05/09/16 0000 Signed Impressions: Service Date/Time: Monday, May 09, 2016 11:29 - CONCLUSION: No DVT in either leg. Santana Mena MD Abdomen/Pelvis CT 05/09/16 0000 Signed Impressions: Service Date/Time: Monday, May 09, 2016 23:37 - CONCLUSION: 1. Body wall edema, hepatomegaly and chronic pancreatitis calcifications are seen as well as mild peripancreatic edema and fluid consistent with superimposed mild acute pancreatitis. 2. Nonobstructing renal calculi. 3. Bilateral pleural effusions. 4. Atherosclerosis. Cesar Meza MD Physical Exam HEENT: Ventriculostomy CHEST: Scattered rhonchi, tracheostomy to vent. CARDIAC: RRR ABDOMEN: Soft, nondistended, nontender; no hepatosplenomegaly; bowel sounds are present in all four quadrants. Dobhoff-clamped. EXTREMITIES: Generalized edema. SKIN: Generalized pallor SALES RECEPTIONIST: Sedated on vent (Jayna Stein) Assessment and Plan Plan ASSESSMENT: - Acute on chronic pancreatitis. Abdomen/Pelvis CT (05/09/16)----> 1. Body wall edema, hepatomegaly and chronic pancreatitis calcifications are seen as well as mild peripancreatic edema and fluid consistent with superimposed mild acute pancreatitis. 2. Nonobstructing renal calculi. 3. Bilateral pleural effusions. 4. Atherosclerosis. She is on Albiglutide at home, which can cause pancreatitis- although she seems to have evidence of chronic pancreatitis on CT imaging. She does have a hx of lupus and some questionable hx of colitis, raising the possibility of autoimmune pancreatitis. ASMA negative, IgG 4 level pending. S/P Dobhoff placement, but is s/p tracheostomy and will need feeding tube for nutrition. D/W G/J tube with , he is agreeable. Will consult IR. Lipase on the 7th was 1438. Will recheck in am. - Leukocytosis. WBC 14.2 - LFTs elevation. Improving. - Anemia, with Hgb trending down. 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 Then had EGD/colonoscopy (03/15/15)---> no evidence of upper bleed, colonoscopy revealed active bleeding through out the colon with poor visualization. S/P bleed scan (03/14/15) positive potentially duodenal. S/P Angiogram of GDA , right colic, ileocolic, and SMA (03/14/15)----> No evidence of active GI bleed. Rpt. Colonoscopy (03/17/15)---> Colonic polyp, rectal ulcer, indurated area in ascending colon biopsied. Pathology of rectum with features suspicious for quiescent chronic colitis, cecal biopsy with focal adenomatous change with severe glandular dysplasia and features consistent with ulceration, ascending colon with adenomatous mucosa with mild glandular dysplasia- Per commend, the possibility of dysplasia-associated lesions arising in derrell background of inflammatory bowel disease should be considered. H/H was slowly trending down, but no obvious active bleeding. HH stable today 8.7/26.4 - Cerebellar intracranial hemorrhage. S/P suboccipital craniectomy and evacuation cerebellar intracrainal hemorrhage, ventriculostomy placement. Per Nsx. - Acute respiratory failure. Vent per CCM. PLAN: - Vital HP at 30cc/hr and increase to 50cc/hr via Dobhoff - NPO after MN - Consult IR for G/J tube - Monitor HH - Transfuse as necessary - Await IgG 4 level - Monitor LFTs. Lipase - Notify GI of active bleeding - Supportive care - Further recommendations to follow based on results of above - Pt seen and examined by Dr. Frazier and myself and this note is written on his behalf (Jayna Stein) Physician Comments Seen and examined with JAMIL, G/J tube planned. (Sadaf Frazier MD) Jayna Stein May 12, 2016 15:55 Sadaf Frazier MD May 12, 2016 17:10
[2016-05-12] MEDS: FLUCONAZOLE 100 MG PREMIX BAG 50 ML IV SCH (16:04)
[2016-05-12] MEDS: RESP: ALBUTEROL 2.5 MG/IPRATROPIUM 0.5 MG NEB (SCH) NEB ×2 (16:30→20:08)
[2016-05-13] VITALS (19 sets, daily range): BP systolic 127–157; BP diastolic 51–70; PULSE 69–87; RESP 17–27; TEMP 99.5–101.5; O2SAT 98–100
[2016-05-13] MEDS: levETIRAcetam INJ 500 MG in SODIUM CHLORIDE 0.9% INJ 100 ML IV SCH ×3 (00:17→23:57)
[2016-05-13] MEDS: INSULIN ASPART SUPPLEMENTAL SCALE SQ SCH ×6 (00:18→20:00)
[2016-05-13] MEDS: ACETAMINOPHEN 650 MG/20.3 ML UDC PO SCH ×4 (02:29→20:42)
[2016-05-13] MEDS: CHLORHEXIDINE GLUCONATE 2 % 1 PACK (2 CLOTHS) TOP SCH (04:00)
[2016-05-13] MEDS: RESP: ALBUTEROL 2.5 MG/IPRATROPIUM 0.5 MG NEB (SCH) NEB ×4 (04:15→20:10)
[2016-05-13] MEDS: VANCOMYCIN INJ 1,500 MG in SODIUM CHLORID 0.9% 500 ML INJ 500 ML IV SCH ×2 (05:03→22:44)
[2016-05-13] MEDS: LABETALOL HCL 200 MG TAB PO SCH (05:04)
[2016-05-13] MEDS: MIDAZOLAM 100 MG/ML INJ 100 ML IV SCH (05:22)
[2016-05-13] MEDS: AZTREONAM INJ 1,000 MG in SODIUM CHLORIDE 0.9% INJ 100 ML IV SCH ×3 (06:21→22:43)
[2016-05-13] MEDS: LACTULOSE SYRUP 20 GM/30 ML CUP PO SCH ×2 (07:23→20:42)
[2016-05-13] MEDS: POLYETHYLENE GLYCOL 17 GM PKG PO SCH ×2 (07:23→20:42)
[2016-05-13] MEDS: BISACODYL 10 MG SUPP RECTAL SCH (07:24)
[2016-05-13] MEDS: DOCUSATE SODIUM 50 MG/SENNA 8.6 MG TAB PO SCH ×2 (07:24→20:42)
[2016-05-13 07:32] LABS: AUTOMATED NEUTROPHIL # 9.7 TH/MM3 (1.8-7.7); BASOPHIL % 0.4 % (0.0-2.0); EOSINOPHIL # 0.1 TH/MM3 (0-0.4); EOSINOPHIL % 1.1 % (0.0-4.0); HEMATOCRIT 25.5 % (35.0-46.0); LYMPH % 14.7 % (9.0-44.0); LYMPHOCYTE # 1.9 TH/MM3 (1.0-4.8); MEAN CELL VOLUME 88.3 FL (80.0-100.0); MEAN CORPUSCULAR HEMOGLOBIN 28.8 PG (27.0-34.0); MEAN CORPUSCULAR HGB CONC 32.6 % (32.0-36.0); MONO % 7.8 % (0.0-8.0); PLATELET COUNT 237 TH/MM3 (150-450); RED BLOOD COUNT 2.88 MIL/MM3 (4.00-5.30); RED CELL DISTRIBUTION WIDTH 14.9 % (11.6-17.2); WHITE BLOOD COUNT 12.7 TH/MM3 (4.0-11.0)
[2016-05-13 07:35] LABS: HEMO FLAGS AUTO DIFF
[2016-05-13 07:51] LABS: ANION GAP 11 MEQ/L (5-15); BICARBONATE 18.8 MEQ/L (21.0-32.0); BLOOD UREA NITROGEN 32 MG/DL (7-18); CHLORIDE 121 MEQ/L (98-107); MAGNESIUM 1.8 MG/DL (1.5-2.5); POTASSIUM 3.9 MEQ/L (3.5-5.1); SODIUM (NA) 151 MEQ/L (136-145)
[2016-05-13 08:01] LABS: ALKALINE PHOSPHATASE 94 U/L (45-117); ALT (GPT) 67 U/L (10-53); AST (GOT) 35 U/L (15-37); GLOMERULAR FILTRATION RATE 77 ML/MIN (>89); TOTAL BILIRUBIN ADULT 0.3 MG/DL (0.2-1.0)
[2016-05-13 08:17] LABS: CORRECTED NUCLEATED RBC 1 /100 WBC (0-0); EOSINOPHILS 2 % (0-4); MYELOCYTES 1 % (0-0); NEUTROPHIL # MANUAL DIFF 9.5 TH/MM3 (1.8-7.7); PLATELET ESTIMATE SMEAR NORMAL (NORMAL); PLATELET MORPHOLOGY NORMAL (NORMAL); POLYS (SEG NEUTROPHILS) 74 % (16-70); SCAN/DIFF FINAL DIFF MANUAL; WBC DIFF SAMPLE 100
[2016-05-13] MEDS: FAMOTIDINE 20 MG TAB PO SCH ×2 (08:42→20:42)
[2016-05-13] MEDS: SODIUM CHLORIDE 0.9% FLUSH 5 ML FLUSH IVF SCH ×2 (08:42→21:00)
[2016-05-13] MEDS: ARTIFICIAL TEARS OPTH SOLN 15 ML BTL EACH EYE SCH ×3 (08:43→18:00)
[2016-05-13] MEDS: INSULIN DETEMIR 100 UNITS/ML VIAL SQ SCH ×2 (08:58→20:42)
[2016-05-13] MEDS ORDERED: HALOPERIDOL LACTATE 5 MG/ML AMP IV PRN (09:30)
--- NOTE | 2016-05-13 09:32 | HHI.CCPN ---
Subjective Remarks/Hospital Course 05/03: 65 years old female was brought in by EMS for stroke alert. Patient has history of multiple strokes in the past. Patient has residual left-sided weakness from the strokes. Patient has an Antiphospholipid syndrome and is on Coumadin. Patient was sitting down watching TV with her then patient started became more unresponsive, having aphasia, nausea vomiting, dizziness, increasing left-sided weakness. EMS was called. Patient was brought to ED stroke alert. CT head revealed large posterior fossa ICH. 05/04: Remains sedated, orally intubated on mechanical ventilation. Underwent suboccipital decompression on 05/03. Ventriculostomy in place. ICPs below 10. Drained 150 cc CSF overnight 05/05: acutely this afternoon, her SBP increased from 150s to 200s. neuro exam unchanged, remains sedated on propofol without sedation vacation today per nsgy. pupillary exam unchanged, 2mm equal, reactive. required labetalol 60mg iv , esmolol 150mcg/kg/min, and cardene 15mg/hr to bring back down to goal SBP 150s. EVD still at 0 per nsgy. ICP in lateral ventricles 1. 05/06: severely hypertensive and febrile. re-cultured overnight. sputum growing GNR. 05/07: Patient remains hypertensive currently on nicardipine and esmolol infusions. Instructions given to titrated up nicardipine, start Norvasc 5 mg daily. Sputum culture with pansensitive Klebsiella. at the bedside updated 05/08: No improvement in neuro status. Continues to spike fever 103.3 MAXIMUM TEMPERATURE. Off nicardipine and esmolol. We'll start scheduled Tylenol and cooling blanket. repeat bruce culture 05/09: Continues to have persistent fever MAXIMUM TEMPERATURE 102, white count remains at 16,000. ID consulted also have ordered a lipase, US liver, venous ultrasound of all extremities. I will also change the central line, and give single dose of vancomycin 05/10: MAXIMUM TEMPERATURE is 102, but currently afebrile. Hemoglobin dropped to 6.8, WBC count 17.1. Sodium 152. Neuro exam remains unchanged. Venous ultrasound negative. Appreciate ID and GI consult. Started on Levophed 4 mcg/ min today 05/11: Tmax 101.4, but fever trending down. WBC 17. Hb 7.2. Transfuse 1U PRBC. Na 150. Off Levophed now, hypertensive. BP Labile. All cultures negative 05/12: Afebrile white count trending down 14,000 today. Restart her on Cardene infusion for hypotension. Plan for OR trach today by Dr. Mcfarlane 05/13: s/p trach yesterday. plan for IR to place G-J tube today. neurosurgery challenging EVD today- raised to 10. weaning sedation. poor neurologic exam persists. Objective Vital Signs Date Time Temp Pulse Resp B/P Pulse Ox O2 Delivery O2 Flow Rate FiO2 05/13/16 08:42 100 35 05/13/16 08:00 84 05/13/16 08:00 101.5 27 142/56 Intake and Output 05/12/16 05/12/16 05/13/16 08:00 16:00 00:00 Intake Total 1096 ml 965 ml 894 ml Output Total 1122 ml 1085 ml 1420 ml Balance -26 ml -120 ml -526 ml Result Diagram: 05/13/16 0640 05/13/16 0640 Other Results Microbiology Date/Time Procedure Status Source Growth 05/11/16 18:30 Urine Culture - Final Complete Urine Catheterized Urine Annemarie Albicans Imaging Last [address] 05/03/16 0000 Signed Impressions: Service Date/Time: Tuesday, May 03, 2016 01:18 - CONCLUSION: Large acute posterior fossa hemorrhage. There is also blood in the fourth and third ventricles. Report was called to Dr. Rodrigues at 1:30 AM. Haim Anaya MD Chest X-Ray 05/03/16 0000 Signed Impressions: Service Date/Time: Tuesday, May 03, 2016 01:53 - CONCLUSION: 1. Endotracheal tube tip is about 1.5 cm above the luis antonio. 2. Nasogastric tube courses into the stomach. 3. Lungs reasonably clear. Haim Anyaa MD Objective Remarks HEENT: Pupils R 3mm L 2 mm, reactive to light. Orotracheally intubated Neck: Thick neck limits JVD exam Chest/Pulm: on mech vent, good air entry bilaterally, no wheezing or crackles CVS: S1-S2 regular, no murmur GI/abdomen: soft, nontender, bowel sounds sluggish Extremities: warm bilaterally, no edema Neuro: Sedated, orally intubated, Pallor present, no icterus, tongue/ mucosa moist. Pupils R 3mm L 2 mm, reactive to light. Ventriculostomy in place at 10. Withdraws bilateral lower extremities to pain, upper extremity remains flaccid A/P Problem List: (1) Intracranial hemorrhage ICD Code: I62.9 Status: Acute (2) Respiratory failure with hypoxia ICD Code: J96.91 Status: Acute (3) Hypertension ICD Code: I10 Status: Acute (4) Atrial fibrillation ICD Code: I48.91 Status: Acute (5) Coagulopathy ICD Code: D68.9 Status: Acute (6) Diabetes ICD Code: E11.9 Status: Acute Assessment and Plan Neuro: Intracranial hemorrhagic stroke/large acute posterior fossa hemorrhage with intraventricular extension Acute encephalopathy - s/p posterior decompression on 05/04 - 3% NS DCd as the NA >150 - EVD, monitor ICP. Keppra for seizure prophylaxis. NeurosurgeryDr. Kathy - Scheduled Tylenol for fever - d/c versed drip. - haldol prn for agitation - oxycodone and hydromorphone for agitation or tachypnea/ vent synchrony Resp: Acute hypoxic and hypercarbic Respiratory failure - Intubated for airway protection, continue mechanical ventilation. End tidal Co2 - No weaning until neurologically improved, BP better controlled - s/p trach 05/[address] Jailene Pinedo `q 6 hour and PRN CVS Hypotension Previously Hypertension - Currently on Cardene infusion for blood pressure-getting weaned off - Off esmolol gtt. - restart labetalol at 100mg po q8h. - continue to hold amlodipine. - Hydralazine 20mg iv q20min and labetalol 20mg iv q1h for SBP >180 - Metoprolol 5mg iv q4h prn for HR > 100. - SBP goal <150, but remains very labile A.Fib - rate controlled - Lopressor i.v. labetalol PO HEME Coagulopathy - reversed Coumadin with Vit K, FFP and Kcentra on admission. ENDO DM -Levemir 50 units [id number]. High-dose sliding scale insulin. 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 - EGD/colonoscopy 03/15/15- no evidence of upper bleed, colonoscopy revealed active bleeding through out the colon with poor visualization. - S/P bleed scan 03/14/15- positive potentially duodenal. S/P Angiogram of GDA, right colic, ileocolic, and SMA - Rpt. Colonoscopy (03/17/15)---> Colonic polyp, rectal ulcer, indurated area in ascending colon biopsied -start free water 200mL q6h per tube -slowly start to normalize serum sodium. - restart TF once G-J. ID Persistent fever/leukocytosis - Leukocytosis noted. bruce cultured-neg to date. Continue vancomycin Azactam and Levaquin. ID Dr. Sanderson - Pansensitive Klebsiella in sputum. patient had witnessed aspiration event in OR per nursing report. - Changed central line 05/09/16 DVT/GI prophylaxis - TEDs/SCDs/Pepcid Critical Care: The total critical care time was 33 minutes. Time to perform other separately billable procedures was not included in the critical care time. Problem Qualifiers (1) Respiratory failure with hypoxia: Qualified Code: J96.01 - Acute respiratory failure with hypoxia Rancho Arrieta MD May 13, 2016 09:31
--- NOTE | 2016-05-13 10:06 | HHI.NSPN ---
(Bri Merchant) Note Status Status: Progress Note (Bri Merchant) Interval History Interval History This is a 65 year old female brought in by EMS as a stroke alert. She has history of multiple ischemic strokes in the past with residual left-sided weakness from the strokes. Patient has a history of Antiphospholipid syndrome and is on anticoagulated Coumadin. Apparently she was sitting down watching TV with her when she became unresponsive, with aphasia, nausea vomiting, dizziness, and increasing left-sided weakness. She is a known tyoe II diabetic and appears to be uncontrolled in ketoacidosis. EMS was called. She was brought to ED stroke alert. CT head revealed a posterior fossa ICH. She underwent emergen posterior fossa craniectomy with evacuation of cerebellar bleed and placement of ventriculostomy drain on 05/03/16. 05/04: well sedated. Pupils equal. EVD at 0 cm H20, ICPs below 10. 05/05: ICPs remains within normal limits, pupils equal, ventriculostomy draining well. 05/06: hypertensive, BP was up in the 200's systolic yesterday, on cardene. Currently running 150s. ICPs normal, EVD draining well. serum sodium 148. well sedated also for bp control. 05/07: intubated, sedated, pupils equal. EEG no ictal abnormalities. 05/10: EVD draining well, ICPs within normal limits. intubated and sedated on versed, no eye opening still. Fevers better, now with acute on chronic pancreatitis. CSF cultures pending. 05/11: no clinical changes, for trach/PEG today. 05/12: going for tracheostomy, ICPs wnl following raising of EVD to 5 cm yesterday 05/13: s/p tracheostomy placement, still on low dose Versed. positive cough/gag when suctioned, withdraws LE, pupils equal. still no report of eye opening or following commands. (Bri Merchant) Labs, Micro, & Vital Signs Results Date Time Temp Pulse Resp B/P Pulse Ox O2 Delivery O2 Flow Rate FiO2 05/13/16 08:42 100 35 05/13/16 08:00 35 05/13/16 08:00 84 05/13/16 08:00 101.5 84 27 142/56 100 05/13/16 06:00 87 05/13/16 04:15 100 35 05/13/16 04:00 100.3 83 19 128/60 99 05/13/16 04:00 35 05/13/16 04:00 83 05/13/16 02:00 81 05/13/16 00:33 99 35 05/13/16 00:00 99.5 85 17 135/56 99 05/13/16 00:00 85 05/13/16 00:00 35 05/12/16 22:00 89 05/12/16 20:03 100 35 05/12/16 20:00 35 05/12/16 20:00 99.0 71 19 136/52 99 05/12/16 20:00 71 05/12/16 18:00 70 05/12/16 16:30 94 35 05/12/16 16:00 81 05/12/16 16:00 98.5 81 19 138/53 94 05/12/16 16:00 35 05/12/16 14:00 68 05/12/16 13:53 99 100 05/12/16 12:00 35 05/12/16 12:00 70 05/12/16 12:00 98.9 70 22 139/56 100 05/12/16 10:48 100 35 05/13/16 07:00 Intake Total 2444 ml Output Total 3330 ml Balance -886 ml Constitutional Vital Signs Date Time Temp Pulse Resp B/P Pulse Ox O2 Delivery O2 Flow Rate FiO2 05/13/16 08:42 100 35 05/13/16 08:00 35 05/13/16 08:00 84 05/13/16 08:00 101.5 84 27 142/56 100 05/13/16 06:00 87 05/13/16 04:15 100 35 05/13/16 04:00 100.3 83 19 128/60 99 05/13/16 04:00 35 05/13/16 04:00 83 05/13/16 02:00 81 05/13/16 00:33 99 35 05/13/16 00:00 99.5 85 17 135/56 99 05/13/16 00:00 85 05/13/16 00:00 35 05/12/16 22:00 89 05/12/16 20:03 100 35 05/12/16 20:00 35 05/12/16 20:00 99.0 71 19 136/52 99 05/12/16 20:00 71 05/12/16 18:00 70 05/12/16 16:30 94 35 05/12/16 16:00 81 05/12/16 16:00 98.5 81 19 138/53 94 05/12/16 16:00 35 05/12/16 14:00 68 05/12/16 13:53 99 100 05/12/16 12:00 35 05/12/16 12:00 70 05/12/16 12:00 98.9 70 22 139/56 100 05/12/16 10:48 100 35 05/13/16 07:00 Intake Total 2444 ml Output Total 3330 ml Balance -886 ml (Bri Merchant) Review of Systems/Exam Exam Ms. Spann is mildly sedated with versed. No eye opening, does not follow commands Right EVD in place at 7 cm H20, draining yellow CSF. ICPs below 10. Cranial Nerves: Pupils 4 mm bilateral, reactive to light. Conjugate gaze. Sensorimotor: muscle tone and bulk are normal. No response deep pain upper extremities, unchanged minimal withdrawal deep pain lower extremities Reflexes: Plantars silent b/l Cerebellar: unable to assess Positive cough/gag when suctioned (Bri Merchant) Medications Current Medications Current Medications Medications (Trade) Dose Ordered Sig/Michelle Route PRN Reason Start Time Stop Time Status Last Admin Dose Admin Artificial Tears (Tears Naturale Opth Soln) 1 drop TID EACH EYE 05/03/16 09:00 05/13/16 08:43 Ondansetron HCl (Zofran Inj) 4 mg Q6H PRN IV NAUSEA OR VOMITING 05/03/16 04:30 Miscellaneous Information 1 Q361D XX 05/03/16 04:30 05/03/16 04:30 Chlorhexidine Gluconate (Chlorhexidine 2% Cloth) Taper DAILY@04 TOP 05/04/16 04:00 04/30/17 03:59 05/13/16 04:00 Chlorhexidine Gluconate (Chlorhexidine 2% Cloth) 3 pack UNSCH PRN TOP HYGIENIC CARE 05/03/16 04:30 IV Flush (NS Flush) 2 ml UNSCH PRN IVF FLUSH AFTER USING IV ACCESS 05/03/16 12:30 05/10/16 01:48 IV Flush 2 ml 2 ml BID IVF 05/03/16 21:00 05/13/16 08:42 Levetriacetam/ Sodium Chloride (Keppra Inj/NS Inj) 105 ml @ 400 mls/hr Q12H IV 05/03/16 13:00 05/13/16 00:17 Calcium Gluconate 1 gm 1 gm UNSCH PRN IV SEE LABEL COMMENTS 05/03/16 12:30 Potassium Chloride 100 ml @ 50 mls/hr UNSCH PRN IV POTASSIUM LESS THAN 4 05/03/16 12:30 05/04/16 06:56 Magnesium Sulfate/ Sodium Chloride (Magnesium Sulfate Inj/NS Inj) 108 ml @ 108 mls/hr UNSCH PRN IV MAGNESIUM LESS THAN 2 05/03/16 12:30 Acetaminophen 650 mg 650 mg Q4H PRN PO TEMPERATURE > 101.5 F 05/03/16 12:30 05/08/16 10:38 Potassium Chloride 100 ml @ 50 mls/hr Q2H PRN IV For Potassium 2.8 - 3.2 mEq/L 05/04/16 08:45 Potassium Chloride (KCl 20 Meq Premix Inj) 100 ml @ 50 mls/hr Q2H PRN IV For Potassium 2.8 - 3.2 mEq/L 05/04/16 08:45 Potassium Chloride 40 meq 40 meq UNSCH PRN PO/TUBE For Potassium 3.3 - 3.5 mEq/L 05/04/16 08:45 Potassium Chloride 100 ml @ 25 mls/hr UNSCH PRN IV For Potassium 3.3 - 3.5 mEq/L 05/04/16 08:45 Potassium Chloride 100 ml @ 50 mls/hr Q2H PRN IV For Potassium 3.3 - 3.5 mEq/L 05/04/16 08:45 Magnesium Sulfate/ Sodium Chloride (Magnesium Sulfate Inj/NS Inj) 100 ml @ 50 mls/hr UNSCH PRN IV For Magnesium 0.9 - 1.1 mg/dL 05/04/16 08:45 Magnesium Oxide 800 mg 800 mg UNSCH PRN PO For Magnesium 1.2 - 1.6 mg/dL 05/04/16 08:45 Magnesium Sulfate/ Sodium Chloride (Magnesium Sulfate Inj/NS Inj) 100 ml @ 50 mls/hr UNSCH PRN IV For Magnesium 1.2 - 1.6 mg/dL 05/04/16 08:45 Potassium Phosphate 2000 mg 2,000 mg Q4H PRN PO For Phosphorus < 2.5 mg/dL 05/04/16 08:45 Sodium Phosphate/ Sodium Chloride (Sodium Phosphate Inj/NS 250 ml Inj) 250 ml @ 42 mls/hr UNSCH PRN IV For Phosphorus < 2.5 mg/dL 05/04/16 08:45 Potassium Chloride (KCl 40 Meq/30 ml Liq) 40 meq UNSCH PRN PO/TUBE SEE LABEL COMMENTS 05/04/16 08:45 Potassium Phosphate 2000 mg 2,000 mg UNSCH PRN PO/TUBE SEE LABEL COMMENTS 05/04/16 08:45 Potassium Phosphate/Sodium Chloride (Potassium Phosphate Inj/NS 250 ml Inj) 260 ml @ 42 mls/hr UNSCH PRN IV SEE LABEL COMMENTS 05/04/16 08:45 Insulin Aspart (NovoLOG SUPPLEMENTAL SCALE) 1 Q4HR SQ 05/04/16 12:00 05/13/16 00:18 Dextrose (D50w (Vial) Inj) 25 ml UNSCH PRN IV HYPOGLYCEMIA-SEE COMMENTS 05/04/16 08:45 05/09/16 20:21 Glucagon (Glucagon Inj) 1 mg UNSCH PRN IM/SQ HYPOGLYCEMIA-SEE COMMENTS 05/04/16 08:45 Insulin Detemir (Levemir Inj) 50 units Q12HR SQ 05/06/16 21:00 05/12/16 22:30 Labetalol HCl (Trandate Inj) 20 mg Q1H PRN IVS SBP greater than 160mm Hg 05/06/16 10:00 05/12/16 05:19 Metoprolol Tartrate (Lopressor Inj) 5 mg Q4H PRN IV PUSH HR > 100 05/06/16 11:00 Bisacodyl (Dulcolax Supp) 10 mg DAILY RECTAL 05/07/16 09:55 Polyethylene Glycol (Miralax) 17 gm BID PO 05/06/16 09:55 05/12/16 20:53 Lactulose (Lactulose Liq) 30 ml BID PO 05/06/16 11:00 05/12/16 20:52 Senna/Docusate Sodium (Meaghan-Colace) 1 tab BID PO 05/06/16 10:00 05/12/16 20:53 Famotidine (Pepcid) 10 mg BID PO 05/06/16 21:00 05/13/16 08:42 Hydralazine HCl 10 mg 10 mg Q30M PRN IV PUSH SYS BP GREATER THAN 150 MMHG 05/06/16 10:00 05/12/16 05:20 Levofloxacin/ Dextrose (Levaquin 750 Mg Premix Inj) 150 ml @ 100 mls/hr Q48H IV 05/06/16 12:00 05/12/16 11:45 Miscellaneous (Pill Splitter) 1 ea UNSCH PRN OTHER SEE LABEL COMMENTS 05/06/16 21:00 Amlodipine Besylate 10 mg 10 mg DAILY PO 05/09/16 09:00 Hold Aztreonam 1000 mg/ Sodium Chloride 100 ml @ 200 mls/hr Q8H IV 05/08/16 22:45 05/13/16 06:21 Pharmacy Profile Note (Vancomycin Consult Pharmacy) 0 ml @ 0 mls/hr UNSCH OTHER 05/09/16 14:45 Acetaminophen 650 mg 650 mg Q6H PO 05/10/16 14:00 05/13/16 08:42 Fluconazole/ Sodium Chloride 50 ml @ 50 mls/hr Q24H IV 05/12/16 15:00 05/12/16 16:04 Vancomycin HCl/ Sodium Chloride (Vancomycin Inj/ NS 500 ml Inj) 515 ml @ 250 mls/hr Q18H IV 05/13/16 06:00 05/13/16 05:03 Miscellaneous Information SPECIFIC LAB TO BE DRAWN:VANCOMYCIN TROUGH DATE TO... ONCE ONCE XX 05/15/16 11:45 05/15/16 11:46 Labetalol HCl (Trandate) 100 mg Q8HR PO 05/13/16 10:00 Water (Free Water) 200 ml Q6HR G-TUBE 05/13/16 12:00 Hydromorphone HCl (Dilaudid Pf Inj) 0.5 mg Q4H PRN IV PUSH pain 8-10 or not taking po 05/13/16 09:30 Oxycodone HCl (Roxicodone Intensol Liq) 5 mg Q4H PO 05/13/16 10:00 Haloperidol Lactate (Haldol Inj) 5 mg Q4H PRN IV agitation 05/13/16 09:30 (Bri Merchant) Medical Decision Making MDM Remarks 65 y/o female with cerebellar bleed coagulopathy with supratherapeutic INR, s/p Vitamin K and KCentra history of antiphospholipid antibody EEG reports no ictal activities Klebsiella Pneumonia (Bri Merchant) Plan Plan Remarks cont EVD challenge, raise to 10 cm H20 today with ICP monitoring cont wean off sedation as tolerated serial neuro checks (Bri Merchant) Attending Statement The exam, history, and the medical decision-making described in the above note were completed with the assistance of the mid-level provider. I reviewed and agree with the findings presented. I attest that I had a [id number] encounter with the patient on the same day, and personally performed and documented my assessment and findings in the medical record. (Oumar Chavez MD) Bri Merchant May 13, 2016 10:06 Oumar Chavez MD May 13, 2016 14:10
[2016-05-13] MEDS: oxyCODONE HCL ORAL CONC 20 MG/ML SYRINGE PO SCH ×4 (11:09→20:41)
[2016-05-13] MEDS: FREE WATER G-TUBE SCH ×2 (11:09→18:00)
[2016-05-13] MEDS: LABETALOL HCL 100 MG TAB PO SCH ×2 (11:11→22:43)
--- NOTE | 2016-05-13 12:30 | HHI.IDPN ---
Note Infectious Disease Note Patient on the vent. 35% FIO2. Unresponsive. Ventriculostomy has link colored CSF. Temp of 101 this am. Diagnosed with cerebellar intracranial hemorrhage. The patient was admitted on 05/03/2016 as a stroke alert. Seen for high spiking fever. PAST MEDICAL HISTORY 1. Hypertension. 2. Atrial fibrillation. 3. Diabetes mellitus. 4. Antiphospholipid syndrome. 5. Cerebrovascular accident. 6. Cholecystectomy. 7. Total hysterectomy. 8. Kidney stones. ALLERGIES LATEX AND ROCEPHIN. MEDICATIONS 1. Aztreonam. 2. Vancomycin. 3. Levaquin. OBJECTIVE: Vital Signs Date Time Temp Pulse Resp B/P Pulse Ox O2 Delivery O2 Flow Rate FiO2 05/13/16 11:30 98 35 05/13/16 08:42 100 35 05/13/16 08:00 35 05/13/16 08:00 84 05/13/16 08:00 101.5 84 27 142/56 100 05/13/16 06:00 87 05/13/16 04:15 100 35 05/13/16 04:00 100.3 83 19 128/60 99 05/13/16 04:00 35 05/13/16 04:00 83 05/13/16 02:00 81 05/13/16 00:33 99 35 05/13/16 00:00 99.5 85 17 135/56 99 05/13/16 00:00 85 05/13/16 00:00 35 05/12/16 22:00 89 05/12/16 20:03 100 35 05/12/16 20:00 35 05/12/16 20:00 99.0 71 19 136/52 99 05/12/16 20:00 71 05/12/16 18:00 70 05/12/16 16:30 94 35 05/12/16 16:00 81 05/12/16 16:00 98.5 81 19 138/53 94 05/12/16 16:00 35 05/12/16 14:00 68 05/12/16 13:53 99 100 05/12/16 05/12/16 05/13/16 15:00 23:00 07:00 Intake Total 965 ml 894 ml 585 ml Output Total 1085 ml 1420 ml 825 ml Balance -120 ml -526 ml -240 ml Intake IV Total 965 ml 602 ml 585 ml Tube Feeding 0 ml 232 ml Other 60 ml Output Urine Total 1000 ml 1400 ml 800 ml Drainage Total 85 ml 20 ml 25 ml # Bowel Movements 0 1 1 Laboratory Tests Test 05/11/16 05/12/16 05/13/16 23:46 04:02 06:40 Hemoglobin 8.7 GM/DL 8.7 GM/DL 8.3 GM/DL Hematocrit 26.9 % 26.4 % 25.5 % White Blood Count 14.2 TH/MM3 12.7 TH/MM3 Red Blood Count 3.01 MIL/MM3 2.88 MIL/MM3 Mean Corpuscular Volume 87.7 FL 88.3 FL Mean Corpuscular Hemoglobin 28.8 PG 28.8 PG Mean Corpuscular Hemoglobin 32.9 % 32.6 % Concent Red Cell Distribution Width 15.1 % 14.9 % Platelet Count 195 TH/MM3 237 TH/MM3 Mean Platelet Volume 11.5 FL 11.1 FL Neutrophils (%) (Auto) 76.0 % Lymphocytes (%) (Auto) 14.7 % Monocytes (%) (Auto) 7.8 % Eosinophils (%) (Auto) 1.1 % Basophils (%) (Auto) 0.4 % Neutrophils # (Auto) 9.7 TH/MM3 Lymphocytes # (Auto) 1.9 TH/MM3 Monocytes # (Auto) 1.0 TH/MM3 Eosinophils # (Auto) 0.1 TH/MM3 Basophils # (Auto) 0.0 TH/MM3 CBC Comment AUTO DIFF Differential Total Cells 100 Counted Neutrophils % (Manual) 74 % Lymphocytes % 19 % Monocytes % 4 % Eosinophils % 2 % Neutrophils # (Manual) 9.5 TH/MM3 Myelocytes 1 % Nucleated Red Blood Cells 1 /100 WBC Differential Comment FINAL DIFF MANUAL Platelet Estimate NORMAL Platelet Morphology Comment NORMAL Laboratory Tests Test 05/12/16 05/13/16 04:02 06:40 Sodium Level 152 MEQ/L 151 MEQ/L Potassium Level 4.0 MEQ/L 3.9 MEQ/L Chloride Level 123 MEQ/L 121 MEQ/L Carbon Dioxide Level 19.9 MEQ/L 18.8 MEQ/L Anion Gap 9 MEQ/L 11 MEQ/L Blood Urea Nitrogen 40 MG/DL 32 MG/DL Creatinine 0.70 MG/DL 0.75 MG/DL Estimat Glomerular Filtration 84 ML/MIN 77 ML/MIN Rate Random Glucose 99 MG/DL 137 MG/DL Calcium Level 8.3 MG/DL 8.3 MG/DL Magnesium Level 1.8 MG/DL Total Bilirubin 0.3 MG/DL Aspartate Amino Transf 35 U/L (AST/SGOT) Alanine Aminotransferase 67 U/L (ALT/SGPT) Alkaline Phosphatase 94 U/L Total Protein 5.4 GM/DL Albumin 1.9 GM/DL Lipase 661 U/L Microbiology Date/Time Procedure Status Source Growth 05/11/16 18:30 Urine Culture - Final Complete Urine Catheterized Urine Annemarie Albicans PHYSICAL EXAMINATION GENERAL: On the ventilator and sedated, unresponsive. HEENT: No icterus, oropharynx mucosa moist. LUNGS: Diminished breath sounds unchanged. HEART: Regular S1S2. No murmurs. ABDOMEN: Obese. Soft. Decreased bowel sounds. EXTREMITIES: No clubbing or cyanosis. 3 + edema. SKIN: No rash. NEUROLOGICAL: Unable to fully assess. PSYCHIATRIC: Unable to fully assess. IMPRESSION 1. Persistent fever. Possible secondary to pulmonary infection versus sepsis versus central nervous system injury and possibly central fever. 2. Leukocytosis. Secondary to #1. WBC lower. 3. Cerebellar intracranial hemorrhage. 4. Acute respiratory failure. 5. Previous pneumonia due to Klebsiella. 6. Acute kidney disease. RECOMMENDATIONS 1. Continue aztreonam. 2. Continue vancomycin. 3. Continue Levaquin. 4. Continue Diflucan for Annemarie. 5. New blood cultures. 6. Monitor temperature and white blood cell count. Sukhi Adan MD May 13, 2016 12:30
--- NOTE | 2016-05-13 14:22 | MP ---
cc: SANDRA GARG MD DATE OF SURGERY: 05/12/2016 PREOPERATIVE DIAGNOSIS: Respiratory failure. Ventilatory dependence. Intracranial hemorrhage. POSTOPERATIVE DIAGNOSIS: Respiratory failure. Ventilatory dependence. Intracranial hemorrhage. OPERATION: Blue rhino tracheostomy. SURGEON: Sandra Garg MD. ANESTHESIA: Xylocaine a ESTIMATED BLOOD LOSS: About 10 cc. PROCEDURE: The patient prepped and draped usual fashion after she is positioned correctly table incision is made in a vertical fashion and anterior neck midline deepened down to the level of the trachea with blunt dissection with hemostats and some coagulation with the Bovie. The isthmus of the thyroid is fairly large with a right-angled, Parathyroid isthmus was divided with the Bovie. The needle Angiocath was now inserted between second and third tracheal ring and under bronchoscopy vision the wire is inserted the Glidewire is inserted into the trachea downward over the guide, now the small dilator and a large rhino dilator is inserted and then after that 8 Shiley cannula placed, connected to the ventilator, end-tidal CO2 checked and cannula sutured to skin with 2-0 nylon and secured with a strap around the neck. The patient tolerated the procedure well and at the end of the procedure. She is bronchoscoped and lavaged to remove the secretions, the patient tolerated the procedure well. Sandra Vega /9:09 PM /2:17 PM
--- NOTE | 2016-05-13 14:27 | HHI.GIFU ---
GI Follow-up Note Consult Follow-up Pt off floor in IR for G/J tube placement Entered by: Jayna Ferreira May 13, 2016 14:27
[2016-05-13] MEDS: FLUCONAZOLE 100 MG PREMIX BAG 50 ML IV SCH (15:00)
--- NOTE | 2016-05-13 15:34 | PD.RAD ---
Post Procedure Progress Note Pre Procedure Diagnosis: (1) Tobacco abuse (2) History of CVA (cerebrovascular accident) (3) Uses feeding tube (4) Impaired nasogastric feeding tube Post Procedure Diagnosis: (1) History of CVA (cerebrovascular accident) (2) Impaired nasogastric feeding tube (3) Uses feeding tube Procedure Date: May 13, 2016 Supervising Radiologist: Timmy Stevens Proceduralist/Assist: Celine Zamudio RT(R)(CV), Alex Quintero RT(R)() Anesthesia: Local Plan of Activity Patient to Unit: Critical Care Patient Condition: Poor See PACS Report for procedural detail/treatment Feeding Tube Gastro/Jejunostomy Placement Congolese: 18 Timmy Stevens MD May 13, 2016 15:34
[2016-05-13] MEDS ORDERED: IOHEXOL 350 MG/ML 50 ML BTL (for RAD DIAG) G-TUBE ONE (15:39)
[2016-05-13] MEDS: HYDROmorphone HCL PF 1 MG/ML VIAL IV PUSH PRN (20:41)
[2016-05-14] VITALS (15 sets, daily range): BP systolic 123–177; BP diastolic 56–78; PULSE 75–106; RESP 14–26; TEMP 97.8–100.9; O2SAT 96–100
[2016-05-14] MEDS: hydrALAZINE HCL 20 MG/ML VIAL IV PUSH PRN ×2 (01:35→11:46)
[2016-05-14] MEDS: ACETAMINOPHEN 650 MG/20.3 ML UDC PO SCH ×4 (02:00→20:45)
[2016-05-14] MEDS: oxyCODONE HCL ORAL CONC 20 MG/ML SYRINGE PO SCH ×6 (02:00→21:51)
[2016-05-14] MEDS: RESP: ALBUTEROL 2.5 MG/IPRATROPIUM 0.5 MG NEB (SCH) NEB ×4 (03:47→21:03)
[2016-05-14] MEDS: CHLORHEXIDINE GLUCONATE 2 % 1 PACK (2 CLOTHS) TOP SCH ×2 (04:00→19:14)
[2016-05-14] MEDS: INSULIN ASPART SUPPLEMENTAL SCALE SQ SCH ×6 (04:32→20:00)
[2016-05-14] MEDS: HYDROmorphone HCL PF 1 MG/ML VIAL IV PUSH PRN (04:40)
[2016-05-14] MEDS: FREE WATER G-TUBE SCH ×5 (06:00→20:00)
[2016-05-14] MEDS: LABETALOL HCL 100 MG TAB PO SCH (06:54)
--- NOTE | 2016-05-14 08:25 | HHI.CCPN ---
Subjective Remarks/Hospital Course 05/03: 65 years old female was brought in by EMS for stroke alert. Patient has history of multiple strokes in the past. Patient has residual left-sided weakness from the strokes. Patient has an Antiphospholipid syndrome and is on Coumadin. Patient was sitting down watching TV with her then patient started became more unresponsive, having aphasia, nausea vomiting, dizziness, increasing left-sided weakness. EMS was called. Patient was brought to ED stroke alert. CT head revealed large posterior fossa ICH. 05/04: Remains sedated, orally intubated on mechanical ventilation. Underwent suboccipital decompression on 05/03. Ventriculostomy in place. ICPs below 10. Drained 150 cc CSF overnight 05/05: acutely this afternoon, her SBP increased from 150s to 200s. neuro exam unchanged, remains sedated on propofol without sedation vacation today per nsgy. pupillary exam unchanged, 2mm equal, reactive. required labetalol 60mg iv , esmolol 150mcg/kg/min, and cardene 15mg/hr to bring back down to goal SBP 150s. EVD still at 0 per nsgy. ICP in lateral ventricles 1. 05/06: severely hypertensive and febrile. re-cultured overnight. sputum growing GNR. 05/07: Patient remains hypertensive currently on nicardipine and esmolol infusions. Instructions given to titrated up nicardipine, start Norvasc 5 mg daily. Sputum culture with pansensitive Klebsiella. at the bedside updated 05/08: No improvement in neuro status. Continues to spike fever 103.3 MAXIMUM TEMPERATURE. Off nicardipine and esmolol. We'll start scheduled Tylenol and cooling blanket. repeat bruce culture 05/09: Continues to have persistent fever MAXIMUM TEMPERATURE 102, white count remains at 16,000. ID consulted also have ordered a lipase, US liver, venous ultrasound of all extremities. I will also change the central line, and give single dose of vancomycin 05/10: MAXIMUM TEMPERATURE is 102, but currently afebrile. Hemoglobin dropped to 6.8, WBC count 17.1. Sodium 152. Neuro exam remains unchanged. Venous ultrasound negative. Appreciate ID and GI consult. Started on Levophed 4 mcg/ min today 05/11: Tmax 101.4, but fever trending down. WBC 17. Hb 7.2. Transfuse 1U PRBC. Na 150. Off Levophed now, hypertensive. BP Labile. All cultures negative 05/12: Afebrile white count trending down 14,000 today. Restart her on Cardene infusion for hypotension. Plan for OR trach today by Dr. Mcfarlane 05/13: s/p trach yesterday. plan for IR to place G-J tube today. neurosurgery challenging EVD today- raised to 10. weaning sedation. poor neurologic exam persists. 05/14: EVD put out 90cc/24h at 10. no neuro improvements. Objective Vital Signs Date Time Temp Pulse Resp B/P Pulse Ox O2 Delivery O2 Flow Rate FiO2 05/14/16 06:00 88 05/14/16 04:00 35 05/14/16 04:00 99.0 14 123/56 99 Intake and Output 05/13/16 05/13/16 05/14/16 08:00 16:00 00:00 Intake Total 585 ml 695 ml 935 ml Output Total 825 ml 950 ml 1185 ml Balance -240 ml -255 ml -250 ml Result Diagram: 05/13/16 0640 05/14/16 0630 Other Results Microbiology Date/Time Procedure Status Source Growth 05/11/16 18:30 Urine Culture - Final Complete Urine Catheterized Urine Annemarie Albicans Imaging Last [address] 05/03/16 0000 Signed Impressions: Service Date/Time: Tuesday, May 03, 2016 01:18 - CONCLUSION: Large acute posterior fossa hemorrhage. There is also blood in the fourth and third ventricles. Report was called to Dr. Rodrigues at 1:30 AM. Haim Anaya MD Chest X-Ray 05/03/16 0000 Signed Impressions: Service Date/Time: Tuesday, May 03, 2016 01:53 - CONCLUSION: 1. Endotracheal tube tip is about 1.5 cm above the luis antonio. 2. Nasogastric tube courses into the stomach. 3. Lungs reasonably clear. Haim Anaya MD Objective Remarks HEENT: Pupils R 3mm L 2 mm, reactive to light. Orotracheally intubated Neck: Thick neck limits JVD exam Chest/Pulm: on mech vent, good air entry bilaterally, no wheezing or crackles CVS: S1-S2 regular, no murmur GI/abdomen: soft, nontender, bowel sounds sluggish Extremities: warm bilaterally, no edema Neuro: Sedated, orally intubated, Pallor present, no icterus, tongue/ mucosa moist. Pupils R 3mm L 2 mm, reactive to light. Ventriculostomy in place at 10. Withdraws bilateral lower extremities to pain, upper extremity remains flaccid A/P Problem List: (1) Intracranial hemorrhage ICD Code: I62.9 Status: Acute (2) Respiratory failure with hypoxia ICD Code: J96.91 Status: Acute (3) Hypertension ICD Code: I10 Status: Acute (4) Atrial fibrillation ICD Code: I48.91 Status: Acute (5) Coagulopathy ICD Code: D68.9 Status: Acute (6) Diabetes ICD Code: E11.9 Status: Acute Assessment and Plan Neuro: Intracranial hemorrhagic stroke/large acute posterior fossa hemorrhage with intraventricular extension Acute encephalopathy Hypoactive Delirium - s/p posterior decompression on 05/04 - 3% NS DCd as the NA >150 - EVD, monitor ICP. Keppra for seizure prophylaxis. NeurosurgeryDr. Kathy - Scheduled Tylenol for fever - haldol prn for agitation - oxycodone and hydromorphone for agitation or tachypnea/ vent synchrony - will trial provigil today -- EVD per nsgy, need to challange drain to see if needs VPS. Resp: Acute hypoxic and hypercarbic Respiratory failure - Intubated for airway protection, continue mechanical ventilation. - No weaning until neurologically improved, BP better controlled - s/p trach 05/[address] Jailene Pinedo `q 6 hour and PRN CVS Hypotension Previously Hypertension - increase labetalol to 200mg po q8h. - continue to hold amlodipine. - Hydralazine 20mg iv q20min and labetalol 20mg iv q1h for SBP >180 - Metoprolol 5mg iv q4h prn for HR > 100. - SBP goal <150, but remains very labile A.Fib - rate controlled - Lopressor i.v. labetalol PO HEME Coagulopathy - reversed Coumadin with Vit K, FFP and Kcentra on admission. ENDO DM -Levemir 50 units [id number]. High-dose sliding scale insulin. 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 - EGD/colonoscopy 03/15/15- no evidence of upper bleed, colonoscopy revealed active bleeding through out the colon with poor visualization. - S/P bleed scan 03/14/15- positive potentially duodenal. S/P Angiogram of GDA, right colic, ileocolic, and SMA - Rpt. Colonoscopy (03/17/15)---> Colonic polyp, rectal ulcer, indurated area in ascending colon biopsied -increase free water 300mL q4h per tube -slowly start to normalize serum sodium. - TF at goal. ID Persistent fever/leukocytosis - Leukocytosis noted. bruce cultured-neg to date. Continue vancomycin Azactam and Levaquin. ID Dr. Sanderson - Pansensitive Klebsiella in sputum. patient had witnessed aspiration event in OR per nursing report. - Changed central line 05/09/16 DVT/GI prophylaxis - TEDs/SCDs/Pepcid Critical Care: The total critical care time was 36 minutes. Time to perform other separately billable procedures was not included in the critical care time. Problem Qualifiers (1) Respiratory failure with hypoxia: Qualified Code: J96.01 - Acute respiratory failure with hypoxia Rancho Arrieta MD May 14, 2016 08:25
[2016-05-14] MEDS ORDERED: FUROSEMIDE 40 MG/4 ML VIAL IV PUSH ONE (08:30)
[2016-05-14] MEDS ORDERED: MODAFINIL 200 MG TAB PO ONE (08:30)
[2016-05-14] MEDS: AZTREONAM INJ 1,000 MG in SODIUM CHLORIDE 0.9% INJ 100 ML IV SCH ×2 (08:49→15:54)
[2016-05-14] MEDS: ARTIFICIAL TEARS OPTH SOLN 15 ML BTL EACH EYE SCH ×3 (08:49→17:53)
[2016-05-14] MEDS: SODIUM CHLORIDE 0.9% FLUSH 5 ML FLUSH IVF SCH ×2 (08:49→20:46)
[2016-05-14] MEDS: INSULIN DETEMIR 100 UNITS/ML VIAL SQ SCH ×2 (08:51→20:46)
[2016-05-14] MEDS: POLYETHYLENE GLYCOL 17 GM PKG PO SCH ×2 (08:51→19:18)
[2016-05-14] MEDS: BISACODYL 10 MG SUPP RECTAL SCH (08:51)
[2016-05-14] MEDS: LACTULOSE SYRUP 20 GM/30 ML CUP PO SCH ×2 (08:51→19:18)
[2016-05-14] MEDS: FAMOTIDINE 20 MG TAB PO SCH ×2 (08:51→20:46)
[2016-05-14] MEDS: DOCUSATE SODIUM 50 MG/SENNA 8.6 MG TAB PO SCH ×2 (08:51→19:18)
[2016-05-14 09:42] LABS: HEMATOCRIT 26.4 % (35.0-46.0); MEAN CELL VOLUME 89.2 FL (80.0-100.0); MEAN CORPUSCULAR HEMOGLOBIN 28.5 PG (27.0-34.0); PLATELET COUNT 250 TH/MM3 (150-450); RED BLOOD COUNT 2.96 MIL/MM3 (4.00-5.30); RED CELL DISTRIBUTION WIDTH 14.6 % (11.6-17.2); REVIEW FLAG FINAL; WHITE BLOOD COUNT 11.4 TH/MM3 (4.0-11.0)
--- NOTE | 2016-05-14 09:54 | RADRPT ---
EXAM DATE/TIME: 05/13/2016 15:06 [facility] COMPARISON: No previous studies available for comparison. INDICATIONS : Patient with history of a subarachnoid hemorrhage in needo fgastrojejunostomy tube placement for nutr ition. MEDICAL HISTORY : 1.AFIB 2.HTN 3.DM 4.Antiphospholipid syndrome SURGICAL HISTORY : 1.Cholecystectomy 2.Total hysterectomy 3.Kidney stone removal ENCOUNTER: Initial ACUITY: 2 weeks PAIN SCORE: Nonresponsive. FLUORO TIME: 4.57 minutes CONTRAST: 30 cc Omnipaque (iohexol) 350 DEVICE(S): 1.) 18 Fr gastrojejunostomy tube PROCEDURE : 1. Limited abdominal ultrasound. 2. Fluoroscopically guided gastrojejunostomy tube placement. 3. Conscious sedation with continuous EKG and oximetry monitoring. The risks, benefits and alternatives to the procedure were explained and verbal and written consent w as obtained. The site was prepped in sterile fashion. Full sterile technique was used, including ca p, mask, sterile gloves and gown and a large sterile sheet. Hand hygiene and 2% chlorhexidine and/or betadine/alcohol prep was utilized per protocol for cutaneous antisepsis. The skin and subcutaneous tissues were infiltrated with local anesthetic solution. Ultrasound was used to lashon the position of the liver. 1 mg of Glucagon was administered. The stoma ch was insufflated with room air using. Three percutaneous fasteners were placed to secure the anteri or gastric wall. A small incision was made between the fasteners. The stomach was accessed with an 18 gauge needle. A n 0.035 wire was advanced into the small bowel. The tract was dilated. The gastrojejunostomy tube w as introduced through a peel-away sheath. The position was confirmed with an injection of contrast in both the gastric and jejunal lumens. Conscious sedation was performed with the prescribed dosages and duration as above. The patient jose daniel ated the procedure well and there were no complications. EKG and oximetry remained stable throughout the procedure. The patient was sent to post anesthesia recovery in stable condition. CONCLUSION: Uncomplicated gastrojejunostomy tube placement as above. Timmy Stevens MD on May 14, 2016 at 9:52 Board Certified Radiologist. This report was verified electronically.
[2016-05-14 10:14] LABS: BICARBONATE 23.2 MEQ/L (21.0-32.0); POTASSIUM 3.7 MEQ/L (3.5-5.1)
--- NOTE | 2016-05-14 10:25 | HHI.GIFU ---
Subjective Remarks G/J tube placed yesterday by IR. Tolerating TF. Nonresponsive (Jayna Stein) Objective Vitals I&O Vital Signs Date Time Temp Pulse Resp B/P Pulse Ox O2 Delivery O2 Flow Rate FiO2 05/14/16 08:44 100 35 05/14/16 08:00 35 05/14/16 08:00 97.8 102 21 158/72 100 Arterial Line 05/14/16 06:00 88 05/14/16 04:00 91 05/14/16 04:00 35 05/14/16 04:00 99.0 93 14 123/56 99 05/14/16 03:47 100 35 05/14/16 02:00 89 05/14/16 01:13 100 35 05/14/16 00:00 35 05/14/16 00:00 85 05/14/16 00:00 99.2 82 18 149/70 99 05/13/16 22:00 87 05/13/16 20:08 100 35 05/13/16 20:00 99.6 83 18 157/70 99 05/13/16 20:00 35 05/13/16 20:00 83 05/13/16 18:00 74 05/13/16 16:42 98 35 05/13/16 16:00 99.5 69 20 127/55 99 05/13/16 16:00 35 05/13/16 16:00 69 05/13/16 14:46 99 60 05/13/16 14:00 77 05/13/16 12:00 99.9 73 24 130/51 98 05/13/16 12:00 35 05/13/16 12:00 73 05/13/16 11:30 98 35 I/O 05/13/16 05/13/16 05/13/16 05/14/16 05/14/16 05/14/16 07:00 15:00 23:00 07:00 15:00 23:00 Intake Total 585 ml 695 ml 935 ml 1560 ml Output Total 825 ml 950 ml 1185 ml 890 ml Balance -240 ml -255 ml -250 ml 670 ml Intake IV Total 585 ml 595 ml 620 ml 750 ml Tube Feeding 0 ml Tube Irrigant 115 ml 410 ml Other 100 ml 200 ml 400 ml Output Urine Total 800 ml 850 ml 1100 ml 800 ml Drainage Total 25 ml 100 ml 85 ml 90 ml # Bowel Movements 1 0 0 0 Laboratory Laboratory Tests Test 05/14/16 05/14/16 06:30 09:00 Creatinine 0.63 0.58 Estimat Glomerular Filtration 95 104 Rate White Blood Count 11.4 Red Blood Count 2.96 Hemoglobin 8.4 Hematocrit 26.4 Mean Corpuscular Volume 89.2 Mean Corpuscular Hemoglobin 28.5 Mean Corpuscular Hemoglobin 32.0 Concent Red Cell Distribution Width 14.6 Platelet Count 250 Mean Platelet Volume 10.6 Sodium Level 148 Potassium Level 3.7 Chloride Level 116 Carbon Dioxide Level 23.2 Anion Gap 9 Blood Urea Nitrogen 22 Random Glucose 165 Calcium Level 8.1 Date/Time Procedure Status Source Growth 05/13/16 16:40 Aerobic Blood Culture Received Blood Peripheral Pending 05/13/16 16:40 Anaerobic Blood Culture Received Blood Peripheral Pending 05/11/16 18:30 Urine Culture - Final Complete Urine Catheterized Urine Annemarie Albicans 05/09/16 18:00 Wound Culture - Final Complete Catheter Tip Central Venous Line 05/09/16 11:05 Gram Stain - Final Complete Cerebral Spinal Fluid Shunt Fluid 05/09/16 11:05 CSF Culture - Final Complete Cerebral Spinal Fluid Shunt Fluid NO GROWTH IN 72 HOURS 05/09/16 11:05 Fungal Smear - Final Resulted Cerebral Spinal Fluid Shunt Fluid NO FUNGAL ELEMENTS SEEN. 05/09/16 11:05 Fungal Culture Resulted Cerebral Spinal Fluid Shunt Fluid Pending Imaging Last Impressions Gastrostomy Tube Placement 05/13/16 0000 Signed Impressions: Service Date/Time: May 15:06 - CONCLUSION: Uncomplicated gastrojejunostomy tube placement as above. Timmy Stevens MD Chest X-Ray 05/10/16 0600 Signed Impressions: Service Date/Time: Tuesday, May 10, 2016 05:01 - CONCLUSION: Clear lungs. Cesar Meza MD Abdomen X-Ray 05/10/16 0000 Signed Impressions: Service Date/Time: Tuesday, May 10, 2016 13:29 - CONCLUSION: Tip of the feeding tube is noted within the expected region of the proximal duodenum. Enzo Umana MD Head CT 05/09/16 0315 Signed Impressions: Service Date/Time: Monday, May 09, 2016 03:31 - CONCLUSION: 1. No significant interval change is appreciated. The ventricles are slightly larger than on the prior study from 4 days ago but overall there is no ventriculomegaly. No herniation or midline shift is present. 2. Stable posterior fossa changes including occipital craniectomy with edema and blood products within the cerebellum and blood products within the ventricular system. 3. Fluid and mucoperiosteal thickening throughout the paranasal sinuses. This may be related to the intubation. Haim Moy MD Upper Extremity Ultrasound 05/09/16 0000 Signed Impressions: Service Date/Time: Monday, May 09, 2016 11:54 - CONCLUSION: No DVT in either arm. Santana Mena MD Lower Extremity Ultrasound 05/09/16 0000 Signed Impressions: Service Date/Time: Monday, May 09, 2016 11:29 - CONCLUSION: No DVT in either leg. Santana Mena MD Abdomen/Pelvis CT 05/09/16 0000 Signed Impressions: Service Date/Time: Monday, May 09, 2016 23:37 - CONCLUSION: 1. Body wall edema, hepatomegaly and chronic pancreatitis calcifications are seen as well as mild peripancreatic edema and fluid consistent with superimposed mild acute pancreatitis. 2. Nonobstructing renal calculi. 3. Bilateral pleural effusions. 4. Atherosclerosis. Cesar Meza MD Physical Exam HEENT: Ventriculostomy CHEST: Scattered rhonchi, tracheostomy to vent. CARDIAC: RRR ABDOMEN: Soft, nondistended, nontender; no hepatosplenomegaly; bowel sounds are present in all four quadrants. G/J tube site without redness or swelling EXTREMITIES: Generalized edema. SKIN: Generalized pallor LOAN APPROVER: Nonresponsive (Jayna Stein) Assessment and Plan Plan ASSESSMENT: - Acute on chronic pancreatitis. Abdomen/Pelvis CT (05/09/16)----> 1. Body wall edema, hepatomegaly and chronic pancreatitis calcifications are seen as well as mild peripancreatic edema and fluid consistent with superimposed mild acute pancreatitis. 2. Nonobstructing renal calculi. 3. Bilateral pleural effusions. 4. Atherosclerosis. She is on Albiglutide at home, which can cause pancreatitis- although she seems to have evidence of chronic pancreatitis on CT imaging. She does have a hx of lupus and some questionable hx of colitis, raising the possibility of autoimmune pancreatitis. ASMA negative, IgG 4 level 8.0. S/P Dobhoff placement, but is s/p tracheostomy and will need feeding tube for nutrition. S/P G/J tube placement by IR (05/13). Lipase improving, 661 yesterday. Pancreatitis improving- wbc/lipase trending down. - Leukocytosis. WBC 11.4 - LFTs elevation. Improving. T. Bili 0.3, AST 35, ALT 67, Alk Phosph 94 - Anemia, with Hgb trending down. 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 Then had EGD/colonoscopy (03/15/15)---> no evidence of upper bleed, colonoscopy revealed active bleeding through out the colon with poor visualization. S/P bleed scan (03/14/15) positive potentially duodenal. S/P Angiogram of GDA , right colic, ileocolic, and SMA (03/14/15)----> No evidence of active GI bleed. Rpt. Colonoscopy (03/17/15)---> Colonic polyp, rectal ulcer, indurated area in ascending colon biopsied. Pathology of rectum with features suspicious for quiescent chronic colitis, cecal biopsy with focal adenomatous change with severe glandular dysplasia and features consistent with ulceration, ascending colon with adenomatous mucosa with mild glandular dysplasia- Per commend, the possibility of dysplasia-associated lesions arising in derrell background of inflammatory bowel disease should be considered. H/H was slowly trending down, but no obvious active bleeding. HH stable today 8.7/26.4 - Cerebellar intracranial hemorrhage. S/P suboccipital craniectomy and evacuation cerebellar intracrainal hemorrhage, ventriculostomy placement. Per Nsx. - Acute respiratory failure. Vent per CCM. PLAN: - Vital HP 50cc/hr via J tube - Monitor HH - Transfuse as necessary - Monitor LFTs. Lipase - Notify GI of active bleeding - GI will sign off, please reconsult as needed - Pt seen and examined by Dr. Frazier and myself and this note is written on his behalf (Jayna Stein) Physician Comments Seen and examined with Ms. Emil NEGRON, s/p G/J placement. Labs stable. Gi will sign off, reconsult as needed. Thank you. (Freddie,Jayna Lama May 14, 2016 10:25 Sadaf Frazier MD May 14, 2016 13:29
[2016-05-14] MEDS: LEVOFLOXACIN 750 MG PREMIX INJ 150 ML IV SCH (11:47)
[2016-05-14] MEDS: levETIRAcetam INJ 500 MG in SODIUM CHLORIDE 0.9% INJ 100 ML IV SCH (11:47)
[2016-05-14] MEDS: LABETALOL HCL 200 MG TAB PO SCH (13:05)
--- NOTE | 2016-05-14 14:42 | HHI.IDPN ---
Note Infectious Disease Note Patient on the vent. 35% FIO2. Non responsive. Ventriculostomy has link colored CSF. Temp lower. post trach and PEG. Diagnosed with cerebellar intracranial hemorrhage. The patient was admitted on 05/03/2016 as a stroke alert. Seen for high spiking fever. PAST MEDICAL HISTORY 1. Hypertension. 2. Atrial fibrillation. 3. Diabetes mellitus. 4. Antiphospholipid syndrome. 5. Cerebrovascular accident. 6. Cholecystectomy. 7. Total hysterectomy. 8. Kidney stones. ALLERGIES LATEX AND ROCEPHIN. MEDICATIONS 1. Aztreonam. 2. Vancomycin. 3. Levaquin. OBJECTIVE: Vital Signs Date Time Temp Pulse Resp B/P Pulse Ox O2 Delivery O2 Flow Rate FiO2 05/14/16 12:28 99 98 05/14/16 08:44 100 35 05/14/16 08:00 35 05/14/16 08:00 97.8 102 21 158/72 100 Arterial Line 05/14/16 06:00 88 05/14/16 04:00 91 05/14/16 04:00 35 05/14/16 04:00 99.0 93 14 123/56 99 05/14/16 03:47 100 35 05/14/16 02:00 89 05/14/16 01:13 100 35 05/14/16 00:00 35 05/14/16 00:00 85 05/14/16 00:00 99.2 82 18 149/70 99 05/13/16 22:00 87 05/13/16 20:08 100 35 05/13/16 20:00 99.6 83 18 157/70 99 05/13/16 20:00 35 05/13/16 20:00 83 05/13/16 18:00 74 05/13/16 16:42 98 35 05/13/16 16:00 99.5 69 20 127/55 99 05/13/16 16:00 35 05/13/16 16:00 69 05/13/16 14:46 99 60 05/13/16 05/13/16 05/14/16 15:00 23:00 07:00 Intake Total 695 ml 935 ml 1560 ml Output Total 950 ml 1185 ml 890 ml Balance -255 ml -250 ml 670 ml Intake IV Total 595 ml 620 ml 750 ml Tube Feeding 0 ml Tube Irrigant 115 ml 410 ml Other 100 ml 200 ml 400 ml Output Urine Total 850 ml 1100 ml 800 ml Drainage Total 100 ml 85 ml 90 ml # Bowel Movements 0 0 0 Laboratory Tests Test 05/13/16 05/14/16 06:40 09:00 White Blood Count 12.7 TH/MM3 11.4 TH/MM3 Red Blood Count 2.88 MIL/MM3 2.96 MIL/MM3 Hemoglobin 8.3 GM/DL 8.4 GM/DL Hematocrit 25.5 % 26.4 % Mean Corpuscular Volume 88.3 FL 89.2 FL Mean Corpuscular Hemoglobin 28.8 PG 28.5 PG Mean Corpuscular Hemoglobin 32.6 % 32.0 % Concent Red Cell Distribution Width 14.9 % 14.6 % Platelet Count 237 TH/MM3 250 TH/MM3 Mean Platelet Volume 11.1 FL 10.6 FL Neutrophils (%) (Auto) 76.0 % Lymphocytes (%) (Auto) 14.7 % Monocytes (%) (Auto) 7.8 % Eosinophils (%) (Auto) 1.1 % Basophils (%) (Auto) 0.4 % Neutrophils # (Auto) 9.7 TH/MM3 Lymphocytes # (Auto) 1.9 TH/MM3 Monocytes # (Auto) 1.0 TH/MM3 Eosinophils # (Auto) 0.1 TH/MM3 Basophils # (Auto) 0.0 TH/MM3 CBC Comment AUTO DIFF Differential Total Cells 100 Counted Neutrophils % (Manual) 74 % Lymphocytes % 19 % Monocytes % 4 % Eosinophils % 2 % Neutrophils # (Manual) 9.5 TH/MM3 Myelocytes 1 % Nucleated Red Blood Cells 1 /100 WBC Differential Comment FINAL DIFF MANUAL Platelet Estimate NORMAL Platelet Morphology Comment NORMAL Laboratory Tests Test 05/13/16 05/14/16 05/14/16 06:40 06:30 09:00 Sodium Level 151 MEQ/L 148 MEQ/L Potassium Level 3.9 MEQ/L 3.7 MEQ/L Chloride Level 121 MEQ/L 116 MEQ/L Carbon Dioxide Level 18.8 MEQ/L 23.2 MEQ/L Anion Gap 11 MEQ/L 9 MEQ/L Blood Urea Nitrogen 32 MG/DL 22 MG/DL Creatinine 0.75 MG/DL 0.63 MG/DL 0.58 MG/DL Estimat Glomerular Filtration 77 ML/MIN 95 ML/MIN 104 ML/MIN Rate Random Glucose 137 MG/DL 165 MG/DL Calcium Level 8.3 MG/DL 8.1 MG/DL Magnesium Level 1.8 MG/DL Total Bilirubin 0.3 MG/DL Aspartate Amino Transf 35 U/L (AST/SGOT) Alanine Aminotransferase 67 U/L (ALT/SGPT) Alkaline Phosphatase 94 U/L Total Protein 5.4 GM/DL Albumin 1.9 GM/DL Lipase 661 U/L Microbiology Date/Time Procedure Status Source Growth 05/11/16 18:30 Urine Culture - Final Complete Urine Catheterized Urine Annemarie Albicans 05/13/16 16:35 Aerobic Blood Culture - Preliminary Resulted Blood Peripheral NO GROWTH IN 1 DAY 05/13/16 16:35 Anaerobic Blood Culture - Preliminary Resulted Blood Peripheral NO GROWTH IN 1 DAY 05/13/16 16:40 Aerobic Blood Culture - Preliminary Resulted Blood Peripheral NO GROWTH IN 1 DAY 05/13/16 16:40 Anaerobic Blood Culture - Preliminary Resulted Blood Peripheral NO GROWTH IN 1 DAY Microbiology Date/Time Procedure Status Source Growth 05/11/16 18:30 Urine Culture - Final Complete Urine Catheterized Urine Annemarie Albicans PHYSICAL EXAMINATION GENERAL: On the ventilator and sedated, unresponsive. HEENT: No icterus, oropharynx mucosa moist. LUNGS: Diminished breath sounds unchanged. HEART: Regular S1S2. No murmurs. ABDOMEN: Obese. Soft. Decreased bowel sounds. EXTREMITIES: No clubbing or cyanosis. 3 + edema. SKIN: No rash. NEUROLOGICAL: Unable to fully assess. PSYCHIATRIC: Unable to fully assess. IMPRESSION 1. Persistent fever. Possible secondary to pulmonary infection versus sepsis versus central nervous system injury and possibly central fever. 2. Leukocytosis. Secondary to #1. WBC improving. 3. Cerebellar intracranial hemorrhage. 4. Acute respiratory failure. 5. Previous pneumonia due to Klebsiella. 6. Acute kidney disease. RECOMMENDATIONS 1. Continue aztreonam. 2. Continue vancomycin. 3. Continue Levaquin. 4. Change Diflucan to PO. 5. Follow blood cultures. 6. Monitor temperature and white blood cell count. Sukhi Adan MD May 14, 2016 14:42
[2016-05-14] MEDS: FLUCONAZOLE 100 MG PREMIX BAG 50 ML IV SCH (15:45)
[2016-05-14] MEDS: METOPROLOL TARTRATE 5 MG/5 ML VIAL IV PUSH PRN (17:51)
[2016-05-14] MEDS: VANCOMYCIN INJ 1,500 MG in SODIUM CHLORID 0.9% 500 ML INJ 500 ML IV SCH (17:53)
--- NOTE | 2016-05-14 19:59 | HHI.NSPN ---
Subjective History Day 11 after cerebellar bleed evacuated with posterior fossa decompression. She remains critically ill with poor neurologic function. She is now off all sedation but has poor corneal and gag reflexes. She has occasional coughing. Her EVD is draining well, orange clear CSF 275 cc in 24 hrs at 10 cm water. Vitals . Vital Signs Date Time Temp Pulse Resp B/P Pulse Ox O2 Delivery O2 Flow Rate FiO2 05/14/16 17:02 98 35 05/14/16 14:00 35 05/14/16 12:28 99 98 05/14/16 12:00 35 05/14/16 08:44 100 35 05/14/16 08:00 35 05/14/16 08:00 97.8 102 21 158/72 100 Arterial Line 05/14/16 06:00 88 05/14/16 04:00 91 05/14/16 04:00 35 05/14/16 04:00 99.0 93 14 123/56 99 05/14/16 03:47 100 35 05/14/16 02:00 89 05/14/16 01:13 100 35 05/14/16 00:00 35 05/14/16 00:00 85 05/14/16 00:00 99.2 82 18 149/70 99 05/13/16 22:00 87 05/13/16 20:08 100 35 05/13/16 20:00 99.6 83 18 157/70 99 05/13/16 20:00 35 05/13/16 20:00 83 05/13/16 05/13/16 05/14/16 15:00 23:00 07:00 Intake Total 695 ml 935 ml 1560 ml Output Total 950 ml 1185 ml 890 ml Balance -255 ml -250 ml 670 ml Physical Exam Eyes Eyes: Pupils Equal Neuro Mental Status: Comatosed Equal Sized Pupils (mm): 2 Face: Symmetric Nova Coma Scale Best Eye Openin - None Best Verbal: 1 - None Best Motor: 1 - None Cardiac Cardiac: Regular Rate & Rhythm Gastrointestinal Gastrointestinal: Soft Genitourinary Genitourinary: Batista Catheter In Place Musculoskeletal Extremities Upper Extremities Deltoid Bicep Tricep HI W. Ext Right Left Lower Extremeties Ilio Quad Plantar Dorsi EHL Right Left Dermatologic Derm Remarks Wet rash noted under the head and shoulders as well as skin breakdown on buttock and flank. A wound care consult was placed Extremities Edema: Edematous, SCDs Objective Labs Laboratory Tests 05/14/16 06:30 05/14/16 09:00 Laboratory Tests Test 05/14/16 05/14/16 06:30 09:00 Creatinine 0.63 MG/DL 0.58 MG/DL Estimat Glomerular Filtration 95 ML/MIN 104 ML/MIN Rate Sodium Level 148 MEQ/L Potassium Level 3.7 MEQ/L Chloride Level 116 MEQ/L Carbon Dioxide Level 23.2 MEQ/L Anion Gap 9 MEQ/L Blood Urea Nitrogen 22 MG/DL Random Glucose 165 MG/DL Calcium Level 8.1 MG/DL Assessment & Plan Diagnosis: (1) Intracranial hemorrhage Plan: Critically ill after posterior fossa hemorrhage with comatose state at this time. Supportive care after tracheostomy and peg is continued. We will challenge the EVD. Jose Whitmore May 14, 2016 19:59
[2016-05-14] MEDS ORDERED: NYSTATIN 100,000 U/GM PWD 15 GM BTL TOPICAL ONE (21:00)
[2016-05-14] MEDS: LABETALOL HCL 100 MG/20 ML VIAL IVS PRN (21:53)
[2016-05-15] VITALS (19 sets, daily range): BP systolic 123–177; BP diastolic 58–75; PULSE 72–87; RESP 16–21; TEMP 98.4–99.7; O2SAT 94–100
[2016-05-15] MEDS: LABETALOL HCL 200 MG TAB PO SCH ×4 (00:34→22:55)
[2016-05-15] MEDS: AZTREONAM INJ 1,000 MG in SODIUM CHLORIDE 0.9% INJ 100 ML IV SCH ×4 (00:35→22:56)
[2016-05-15] MEDS: levETIRAcetam INJ 500 MG in SODIUM CHLORIDE 0.9% INJ 100 ML IV SCH ×2 (00:37→12:51)
[2016-05-15] MEDS: INSULIN ASPART SUPPLEMENTAL SCALE SQ SCH ×6 (00:42→20:16)
[2016-05-15] MEDS: ACETAMINOPHEN 650 MG/20.3 ML UDC PO SCH ×4 (02:00→20:15)
[2016-05-15] MEDS: RESP: ALBUTEROL 2.5 MG/IPRATROPIUM 0.5 MG NEB (SCH) NEB ×4 (03:09→19:35)
[2016-05-15] MEDS: oxyCODONE HCL ORAL CONC 20 MG/ML SYRINGE PO SCH ×6 (03:37→22:55)
[2016-05-15] MEDS: FREE WATER G-TUBE SCH ×7 (04:00→23:07)
[2016-05-15 05:47] LABS: POTASSIUM 3.7 MEQ/L (3.5-5.1)
[2016-05-15 05:51] LABS: HEMATOCRIT 27.4 % (35.0-46.0); MEAN CELL VOLUME 88.8 FL (80.0-100.0); MEAN CORPUSCULAR HEMOGLOBIN 28.7 PG (27.0-34.0); MEAN CORPUSCULAR HGB CONC 32.3 % (32.0-36.0); PLATELET COUNT 263 TH/MM3 (150-450); RED BLOOD COUNT 3.08 MIL/MM3 (4.00-5.30); RED CELL DISTRIBUTION WIDTH 14.6 % (11.6-17.2); WHITE BLOOD COUNT 14.2 TH/MM3 (4.0-11.0)
[2016-05-15 05:52] LABS: REVIEW FLAG FINAL
--- NOTE | 2016-05-15 07:56 | HHI.CCPN ---
Subjective Remarks/Hospital Course 05/03: 65 years old female was brought in by EMS for stroke alert. Patient has history of multiple strokes in the past. Patient has residual left-sided weakness from the strokes. Patient has an Antiphospholipid syndrome and is on Coumadin. Patient was sitting down watching TV with her then patient started became more unresponsive, having aphasia, nausea vomiting, dizziness, increasing left-sided weakness. EMS was called. Patient was brought to ED stroke alert. CT head revealed large posterior fossa ICH. 05/04: Remains sedated, orally intubated on mechanical ventilation. Underwent suboccipital decompression on 05/03. Ventriculostomy in place. ICPs below 10. Drained 150 cc CSF overnight 05/05: acutely this afternoon, her SBP increased from 150s to 200s. neuro exam unchanged, remains sedated on propofol without sedation vacation today per nsgy. pupillary exam unchanged, 2mm equal, reactive. required labetalol 60mg iv , esmolol 150mcg/kg/min, and cardene 15mg/hr to bring back down to goal SBP 150s. EVD still at 0 per nsgy. ICP in lateral ventricles 1. 05/06: severely hypertensive and febrile. re-cultured overnight. sputum growing GNR. 05/07: Patient remains hypertensive currently on nicardipine and esmolol infusions. Instructions given to titrated up nicardipine, start Norvasc 5 mg daily. Sputum culture with pansensitive Klebsiella. at the bedside updated 05/08: No improvement in neuro status. Continues to spike fever 103.3 MAXIMUM TEMPERATURE. Off nicardipine and esmolol. We'll start scheduled Tylenol and cooling blanket. repeat bruce culture 05/09: Continues to have persistent fever MAXIMUM TEMPERATURE 102, white count remains at 16,000. ID consulted also have ordered a lipase, US liver, venous ultrasound of all extremities. I will also change the central line, and give single dose of vancomycin 05/10: MAXIMUM TEMPERATURE is 102, but currently afebrile. Hemoglobin dropped to 6.8, WBC count 17.1. Sodium 152. Neuro exam remains unchanged. Venous ultrasound negative. Appreciate ID and GI consult. Started on Levophed 4 mcg/ min today 05/11: Tmax 101.4, but fever trending down. WBC 17. Hb 7.2. Transfuse 1U PRBC. Na 150. Off Levophed now, hypertensive. BP Labile. All cultures negative 05/12: Afebrile white count trending down 14,000 today. Restart her on Cardene infusion for hypotension. Plan for OR trach today by Dr. Mcfarlane 05/13: s/p trach yesterday. plan for IR to place G-J tube today. neurosurgery challenging EVD today- raised to 10. weaning sedation. poor neurologic exam persists. 05/14: EVD put out 90cc/24h at 10. no neuro improvements. 05/15: EVD put out 25cc/24h at 15. no neuro changes. Na slowly normalizing. also with significant yeast infection over back of neck. Objective Vital Signs Date Time Temp Pulse Resp B/P Pulse Ox O2 Delivery O2 Flow Rate FiO2 05/15/16 06:00 75 05/15/16 04:37 19 05/15/16 04:29 96 35 05/15/16 04:00 99.0 144/63 Intake and Output 05/14/16 05/14/16 05/15/16 08:00 16:00 00:00 Intake Total 1560 ml 1080 ml 1245 ml Output Total 890 ml 4070 ml 1040 ml Balance 670 ml -2990 ml 205 ml Result Diagram: 05/15/16 0430 05/15/16 0430 Imaging Last [address] 05/03/16 0000 Signed Impressions: Service Date/Time: Tuesday, May 03, 2016 01:18 - CONCLUSION: Large acute posterior fossa hemorrhage. There is also blood in the fourth and third ventricles. Report was called to Dr. Rodrigues at 1:30 AM. Haim Anaya MD Chest X-Ray 05/03/16 0000 Signed Impressions: Service Date/Time: Tuesday, May 03, 2016 01:53 - CONCLUSION: 1. Endotracheal tube tip is about 1.5 cm above the luis antonio. 2. Nasogastric tube courses into the stomach. 3. Lungs reasonably clear. Haim Anaya MD Objective Remarks HEENT: Pupils R 3mm L 2 mm, reactive to light. Orotracheally intubated Neck: Thick neck limits JVD exam, red rash over posterior neck Chest/Pulm: on mech vent, good air entry bilaterally, no wheezing or crackles CVS: S1-S2 regular, no murmur GI/abdomen: soft, nontender, bowel sounds sluggish Extremities: warm bilaterally, no edema Neuro: trached, Pallor present, no icterus, tongue/ mucosa moist. Pupils R 3mm L 2 mm, reactive to light. Ventriculostomy in place at 15. Withdraws bilateral lower extremities to pain, upper extremity remains flaccid A/P Problem List: (1) Intracranial hemorrhage ICD Code: I62.9 Status: Acute (2) Respiratory failure with hypoxia ICD Code: J96.91 Status: Acute (3) Hypertension ICD Code: I10 Status: Acute (4) Atrial fibrillation ICD Code: I48.91 Status: Acute (5) Coagulopathy ICD Code: D68.9 Status: Acute (6) Diabetes ICD Code: E11.9 Status: Acute Assessment and Plan Neuro: Intracranial hemorrhagic stroke/large acute posterior fossa hemorrhage with intraventricular extension Acute encephalopathy - s/p posterior decompression on 05/04 - 3% NS DCd as the NA >150 - EVD, monitor ICP. Keppra for seizure prophylaxis. NeurosurgeryDrGordo Chavez - Scheduled Tylenol for fever - haldol prn for agitation - oxycodone and hydromorphone for agitation or tachypnea/ vent synchrony -tried provigil yesterday without any improvements in mentation. -- EVD per nsgy, need to challange drain to see if needs VPS. Resp: Acute hypoxic and hypercarbic Respiratory failure - Intubated for airway protection, continue mechanical ventilation. - will start SBTs today. - s/p trach 05/[address] Jailene Pinedo `q 6 hour and PRN CVS Hypertension - continue labetalol to 200mg po q8h. - continue to hold amlodipine. - Hydralazine 20mg iv q20min and labetalol 20mg iv q1h for SBP >180 - Metoprolol 5mg iv q4h prn for HR > 100. - SBP goal <150, better controlled today. A.Fib - rate controlled - Lopressor i.v. labetalol PO HEME Coagulopathy - reversed Coumadin with Vit K, FFP and Kcentra on admission. ENDO DM -Levemir 50 units [id number]. High-dose sliding scale insulin. 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 - EGD/colonoscopy 03/15/15- no evidence of upper bleed, colonoscopy revealed active bleeding through out the colon with poor visualization. - S/P bleed scan 03/14/15- positive potentially duodenal. S/P Angiogram of GDA, right colic, ileocolic, and SMA - Rpt. Colonoscopy (03/17/15)---> Colonic polyp, rectal ulcer, indurated area in ascending colon biopsied -continue free water 300mL q4h per tube -slowly start to normalize serum sodium. - TF at goal. ID Persistent fever/leukocytosis - Leukocytosis noted. bruce cultured-neg to date. Continue vancomycin Azactam and Levaquin. ID Dr. Sanderson - Pansensitive Klebsiella in sputum. patient had witnessed aspiration event in OR per nursing report. DVT/GI prophylaxis - TEDs/SCDs/Pepcid OVERALL IMPRESSION: remains critically ill. challenging EVD, may require permanent shunt. will start to wean mechanical ventilation, but likely will require long-term vent wean. still with resolving pancreatitis, encephalopathy, infection. without ongoing full support, would . Critical Care: The total critical care time was 31 minutes. Time to perform other separately billable procedures was not included in the critical care time. Problem Qualifiers (1) Respiratory failure with hypoxia: Qualified Code: J96.01 - Acute respiratory failure with hypoxia Rancho Arrieta MD May 15, 2016 07:56
[2016-05-15] MEDS: FAMOTIDINE 20 MG TAB PO SCH ×2 (08:34→20:18)
[2016-05-15] MEDS: FLUCONAZOLE 100 MG TAB PO SCH (08:34)
[2016-05-15] MEDS: ARTIFICIAL TEARS OPTH SOLN 15 ML BTL EACH EYE SCH ×3 (08:34→16:55)
[2016-05-15] MEDS: SODIUM CHLORIDE 0.9% FLUSH 5 ML FLUSH IVF SCH ×2 (08:34→20:16)
[2016-05-15] MEDS: INSULIN DETEMIR 100 UNITS/ML VIAL SQ SCH ×2 (08:35→22:56)
[2016-05-15] MEDS: BISACODYL 10 MG SUPP RECTAL SCH (08:35)
[2016-05-15] MEDS: POLYETHYLENE GLYCOL 17 GM PKG PO SCH ×2 (08:36→20:17)
[2016-05-15] MEDS: DOCUSATE SODIUM 50 MG/SENNA 8.6 MG TAB PO SCH ×2 (08:36→20:18)
[2016-05-15] MEDS: LACTULOSE SYRUP 20 GM/30 ML CUP PO SCH ×2 (08:36→20:17)
--- NOTE | 2016-05-15 11:17 | HHI.NSPN ---
History Chief Complaint: intubated Interval History Day 12 after poosterior fossa bleed, weaning off EVD support, now at 20 cm of water pressure. CSF is clear. She has arisen a little but remains very sleepy off sedation. Review of Systems General: Positive for: fever (T 110.9 max), Negative for: chills, insomnia Respiratory: Negative for: shortness of breath, cough, sputum Cardiovascular: Negative for: chest pain, palpitations, orthopnea Exam Results Vital Signs Date Time Temp Pulse Resp B/P Pulse Ox O2 Delivery O2 Flow Rate FiO2 05/15/16 10:00 77 05/15/16 09:24 96 35 05/15/16 08:00 99.7 17 131/62 Intake and Output 05/14/16 05/14/16 05/15/16 08:00 16:00 00:00 Intake Total 1560 ml 1080 ml 1245 ml Output Total 890 ml 4070 ml 1040 ml Balance 670 ml -2990 ml 205 ml Physical Examination Ms. Spann is off sedation, the left eye opens a little to stimulation Right EVD in place at 20 cm H20, draining clear yellow CSF. ICPs 6-10 Cranial Nerves: Pupils 4 mm bilateral, reactive to light. Conjugate gaze. Sensorimotor: muscle tone and bulk are normal. Minimal withdrawal deep pain lower extremities Reflexes: Plantars down Cerebellar: unable to assess Positive cough/gag when suctioned Lab, Micro, Other Results Laboratory Tests Test 05/15/16 04:30 White Blood Count 14.2 TH/MM3 Red Blood Count 3.08 MIL/MM3 Hemoglobin 8.8 GM/DL Hematocrit 27.4 % Mean Corpuscular Volume 88.8 FL Mean Corpuscular Hemoglobin 28.7 PG Mean Corpuscular Hemoglobin 32.3 % Concent Red Cell Distribution Width 14.6 % Platelet Count 263 TH/MM3 Mean Platelet Volume 10.8 FL Sodium Level 145 MEQ/L Potassium Level 3.7 MEQ/L Chloride Level 113 MEQ/L Carbon Dioxide Level 21.0 MEQ/L Anion Gap 11 MEQ/L Blood Urea Nitrogen 21 MG/DL Creatinine 0.52 MG/DL Estimat Glomerular Filtration 118 ML/MIN Rate Random Glucose 158 MG/DL Calcium Level 8.2 MG/DL Medical Decision Making Impression and Plan Day 12 after posterior fossa bleed, MAP 90, ICP in the normal range, weaning the EVD off. The EVD is now open at 20 cm of water pressure. Continued metabolic support, DVT and PUD prophylaxis per ICU protocol, improving slightly neurologically but she is still critically ill. Total Minutes: 10 Jose Whitmore May 15, 2016 11:17
[2016-05-15] MEDS ORDERED: PHARMACY ORDERED LAB XX ONE (11:45)
[2016-05-15] MEDS: LEVOFLOXACIN 750 MG PREMIX INJ 150 ML IV SCH (12:52)
[2016-05-15] MEDS: VANCOMYCIN INJ 1,500 MG in SODIUM CHLORID 0.9% 500 ML INJ 500 ML IV SCH (12:52)
[2016-05-15] MEDS: hydrALAZINE HCL 20 MG/ML VIAL IV PUSH PRN (18:33)
[2016-05-15] MEDS: CHLORHEXIDINE GLUCONATE 2 % 1 PACK (2 CLOTHS) TOP SCH (23:08)
[2016-05-16] VITALS (18 sets, daily range): BP systolic 125–183; BP diastolic 59–83; PULSE 70–90; RESP 15–24; TEMP 98.4–99.9; O2SAT 93–96
[2016-05-16] MEDS: levETIRAcetam INJ 500 MG in SODIUM CHLORIDE 0.9% INJ 100 ML IV SCH ×2 (01:24→11:58)
[2016-05-16] MEDS: oxyCODONE HCL ORAL CONC 20 MG/ML SYRINGE PO SCH ×6 (02:36→22:42)
[2016-05-16] MEDS: FREE WATER G-TUBE SCH ×5 (02:37→21:01)
[2016-05-16] MEDS: ACETAMINOPHEN 650 MG/20.3 ML UDC PO SCH ×2 (02:37→08:24)
[2016-05-16] MEDS: RESP: ALBUTEROL 2.5 MG/IPRATROPIUM 0.5 MG NEB (SCH) NEB ×4 (03:09→19:31)
[2016-05-16] MEDS: INSULIN ASPART SUPPLEMENTAL SCALE SQ SCH ×6 (04:00→19:54)
[2016-05-16 05:31] LABS: HEMATOCRIT 25.7 % (35.0-46.0); MEAN CELL VOLUME 89.6 FL (80.0-100.0); MEAN CORPUSCULAR HEMOGLOBIN 28.5 PG (27.0-34.0); MEAN CORPUSCULAR HGB CONC 31.8 % (32.0-36.0); PLATELET COUNT 286 TH/MM3 (150-450); RED BLOOD COUNT 2.87 MIL/MM3 (4.00-5.30); RED CELL DISTRIBUTION WIDTH 14.8 % (11.6-17.2); REVIEW FLAG FINAL
[2016-05-16] MEDS ORDERED: PHARMACY ORDERED LAB XX ONE (05:45)
[2016-05-16 05:47] LABS: BICARBONATE 22.9 MEQ/L (21.0-32.0); POTASSIUM 3.9 MEQ/L (3.5-5.1)
[2016-05-16] MEDS: VANCOMYCIN INJ 1,500 MG in SODIUM CHLORID 0.9% 500 ML INJ 500 ML IV SCH ×2 (06:28→19:54)
[2016-05-16] MEDS: LABETALOL HCL 200 MG TAB PO SCH ×3 (06:29→22:42)
[2016-05-16] MEDS: AZTREONAM INJ 1,000 MG in SODIUM CHLORIDE 0.9% INJ 100 ML IV SCH ×3 (06:29→22:42)
[2016-05-16] MEDS: POLYETHYLENE GLYCOL 17 GM PKG PO SCH ×2 (08:24→21:01)
[2016-05-16] MEDS: DOCUSATE SODIUM 50 MG/SENNA 8.6 MG TAB PO SCH ×2 (08:24→21:00)
[2016-05-16] MEDS: INSULIN DETEMIR 100 UNITS/ML VIAL SQ SCH ×2 (08:24→21:00)
[2016-05-16] MEDS: BISACODYL 10 MG SUPP RECTAL SCH (08:24)
[2016-05-16] MEDS: LACTULOSE SYRUP 20 GM/30 ML CUP PO SCH ×2 (08:24→21:00)
[2016-05-16] MEDS: FAMOTIDINE 20 MG TAB PO SCH ×2 (08:24→21:00)
[2016-05-16] MEDS: ARTIFICIAL TEARS OPTH SOLN 15 ML BTL EACH EYE SCH ×3 (08:25→16:51)
[2016-05-16] MEDS: FLUCONAZOLE 100 MG TAB PO SCH (08:25)
[2016-05-16] MEDS: SODIUM CHLORIDE 0.9% FLUSH 5 ML FLUSH IVF SCH ×2 (08:25→20:29)
--- NOTE | 2016-05-16 08:48 | HHI.CCPN ---
Subjective Remarks/Hospital Course 05/03: 65 years old female was brought in by EMS for stroke alert. Patient has history of multiple strokes in the past. Patient has residual left-sided weakness from the strokes. Patient has an Antiphospholipid syndrome and is on Coumadin. Patient was sitting down watching TV with her then patient started became more unresponsive, having aphasia, nausea vomiting, dizziness, increasing left-sided weakness. EMS was called. Patient was brought to ED stroke alert. CT head revealed large posterior fossa ICH. 05/04: Remains sedated, orally intubated on mechanical ventilation. Underwent suboccipital decompression on 05/03. Ventriculostomy in place. ICPs below 10. Drained 150 cc CSF overnight 05/05: acutely this afternoon, her SBP increased from 150s to 200s. neuro exam unchanged, remains sedated on propofol without sedation vacation today per nsgy. pupillary exam unchanged, 2mm equal, reactive. required labetalol 60mg iv , esmolol 150mcg/kg/min, and cardene 15mg/hr to bring back down to goal SBP 150s. EVD still at 0 per nsgy. ICP in lateral ventricles 1. 05/06: severely hypertensive and febrile. re-cultured overnight. sputum growing GNR. 05/07: Patient remains hypertensive currently on nicardipine and esmolol infusions. Instructions given to titrated up nicardipine, start Norvasc 5 mg daily. Sputum culture with pansensitive Klebsiella. at the bedside updated 05/08: No improvement in neuro status. Continues to spike fever 103.3 MAXIMUM TEMPERATURE. Off nicardipine and esmolol. We'll start scheduled Tylenol and cooling blanket. repeat bruce culture 05/09: Continues to have persistent fever MAXIMUM TEMPERATURE 102, white count remains at 16,000. ID consulted also have ordered a lipase, US liver, venous ultrasound of all extremities. I will also change the central line, and give single dose of vancomycin 05/10: MAXIMUM TEMPERATURE is 102, but currently afebrile. Hemoglobin dropped to 6.8, WBC count 17.1. Sodium 152. Neuro exam remains unchanged. Venous ultrasound negative. Appreciate ID and GI consult. Started on Levophed 4 mcg/ min today 05/11: Tmax 101.4, but fever trending down. WBC 17. Hb 7.2. Transfuse 1U PRBC. Na 150. Off Levophed now, hypertensive. BP Labile. All cultures negative 05/12: Afebrile white count trending down 14,000 today. Restart her on Cardene infusion for hypotension. Plan for OR trach today by Dr. Mcfarlane 05/13: s/p trach yesterday. plan for IR to place G-J tube today. neurosurgery challenging EVD today- raised to 10. weaning sedation. poor neurologic exam persists. 05/14: EVD put out 90cc/24h at 10. no neuro improvements. 05/15: EVD put out 25cc/24h at 15. no neuro changes. Na slowly normalizing. also with significant yeast infection over back of neck. 05/16: EVD clamped at 08:30am. ICP stable. persistently poor neuro exam. Na continues to normalize. will trial CPAP today. Objective Vital Signs Date Time Temp Pulse Resp B/P Pulse Ox O2 Delivery O2 Flow Rate FiO2 05/16/16 07:29 93 35 05/16/16 06:00 82 05/16/16 04:00 99.4 15 125/59 Intake and Output 05/15/16 05/15/16 05/16/16 08:00 16:00 00:00 Intake Total 1080 ml 610 ml 850 ml Output Total 625 ml 682 ml 1128 ml Balance 455 ml -72 ml -278 ml Result Diagram: 05/16/16 0506 05/16/16 0506 Imaging Last [address] 05/03/16 0000 Signed Impressions: Service Date/Time: Tuesday, May 03, 2016 01:18 - CONCLUSION: Large acute posterior fossa hemorrhage. There is also blood in the fourth and third ventricles. Report was called to Dr. Rodrigues at 1:30 AM. Haim Anaya MD Chest X-Ray 05/03/16 0000 Signed Impressions: Service Date/Time: Tuesday, May 03, 2016 01:53 - CONCLUSION: 1. Endotracheal tube tip is about 1.5 cm above the luis antonio. 2. Nasogastric tube courses into the stomach. 3. Lungs reasonably clear. Haim Anaya MD Objective Remarks HEENT: Pupils R 3mm L 2 mm, reactive to light. trached. Neck: Thick neck limits JVD exam, red rash over posterior neck Chest/Pulm: on mech vent, good air entry bilaterally, no wheezing or crackles CVS: S1-S2 regular, no murmur GI/abdomen: soft, nontender, bowel sounds sluggish Extremities: warm bilaterally, no edema Neuro: trached, Pallor present, no icterus, tongue/ mucosa moist. Pupils R 3mm L 2 mm, reactive to light. Ventriculostomy in place, currently clamped. Withdraws bilateral lower extremities to pain, upper extremity remains flaccid A/P Problem List: (1) Intracranial hemorrhage ICD Code: I62.9 Status: Acute (2) Respiratory failure with hypoxia ICD Code: J96.91 Status: Acute (3) Hypertension ICD Code: I10 Status: Acute (4) Atrial fibrillation ICD Code: I48.91 Status: Acute (5) Coagulopathy ICD Code: D68.9 Status: Acute (6) Diabetes ICD Code: E11.9 Status: Acute Assessment and Plan Neuro: Intracranial hemorrhagic stroke/large acute posterior fossa hemorrhage with intraventricular extension Acute encephalopathy - s/p posterior decompression on 05/04 - s/p hyperosmolar therapy. - EVD, monitor ICP. Fabby for seizure prophylaxis. NeurosurgeryDr. Kathy - Scheduled Tylenol for fever - haldol prn for agitation - oxycodone and hydromorphone for agitation or tachypnea/ vent synchrony -trialed 1 dose of provigil on 05/14 without effect. did not continue. -- EVD clamped per nsgy. 24h f/u head CT in AM. Resp: Acute hypoxic and hypercarbic Respiratory failure - Intubated for airway protection, continue mechanical ventilation. - will start SBTs today. - s/p trach 05/[address] Jailene Pinedo `q 6 hour and PRN CVS Hypertension - continue labetalol to 200mg po q8h. - continue to hold amlodipine. - Hydralazine 20mg iv q20min and labetalol 20mg iv q1h for SBP >180 - Metoprolol 5mg iv q4h prn for HR > 100. - SBP goal <150, better controlled today. A.Fib - rate controlled - Lopressor i.v. labetalol PO HEME Coagulopathy - reversed Coumadin with Vit K, FFP and Kcentra on admission. ENDO DM -Levemir 50 units [id number]. High-dose sliding scale insulin. 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 - EGD/colonoscopy 03/15/15- no evidence of upper bleed, colonoscopy revealed active bleeding through out the colon with poor visualization. - S/P bleed scan 03/14/15- positive potentially duodenal. S/P Angiogram of GDA, right colic, ileocolic, and SMA - Rpt. Colonoscopy (03/17/15)---> Colonic polyp, rectal ulcer, indurated area in ascending colon biopsied -continue free water 300mL q4h per tube -serum Na normalizing slowly. - TF at goal. ID Persistent fever/leukocytosis - Leukocytosis noted. bruce cultured-neg to date. Continue vancomycin Azactam and Levaquin. ID Dr. Sanderson - Pansensitive Klebsiella in sputum. patient had witnessed aspiration event in OR per nursing report. DVT/GI prophylaxis - TEDs/SCDs/Pepcid OVERALL IMPRESSION: remains critically ill. challenging EVD, may require permanent shunt. will start to wean mechanical ventilation, but likely will require long-term vent wean. still with resolving pancreatitis, encephalopathy, infection. without ongoing full support, would . Critical Care: The total critical care time was 34 minutes. Time to perform other separately billable procedures was not included in the critical care time. Problem Qualifiers (1) Respiratory failure with hypoxia: Qualified Code: J96.01 - Acute respiratory failure with hypoxia Rancho Arrieta MD May 16, 2016 08:48
[2016-05-16] MEDS: hydrALAZINE HCL 20 MG/ML VIAL IV PUSH PRN ×2 (09:22→17:17)
--- NOTE | 2016-05-16 11:02 | HHI.NSPN ---
History Chief Complaint: intubated Interval History Day 13 after posterior fossa bleed, EVD is now clamped and her ICP remains normal 6-13. CSF is clear and yellow. GCS is 8 Review of Systems General: Negative for: fever, chills, insomnia Exam Results Vital Signs Date Time Temp Pulse Resp B/P Pulse Ox O2 Delivery O2 Flow Rate FiO2 05/16/16 10:00 80 05/16/16 09:18 35 05/16/16 08:00 99.3 18 126/60 94 Intake and Output 05/15/16 05/15/16 05/16/16 08:00 16:00 00:00 Intake Total 1080 ml 610 ml 850 ml Output Total 625 ml 682 ml 1128 ml Balance 455 ml -72 ml -278 ml Physical Examination Ms. Spann is off sedation, the left eye opens a little to stimulation Right EVD is clamped draining clear yellow CSF. ICPs 6-10 Cranial Nerves: Pupils 4 mm bilateral, reactive to light. Conjugate gaze. Motor Slight grasp bilaterally but arousal is still poor, minimal movement to stimulation Sensorimotor: muscle tone and bulk are normal. Minimal withdrawal deep pain lower extremities Reflexes: Plantars down Cerebellar: unable to assess Neck incision care continued. Positive cough/gag when suctioned Lab, Micro, Other Results Laboratory Tests Test 05/16/16 05:06 White Blood Count 11.0 TH/MM3 Red Blood Count 2.87 MIL/MM3 Hemoglobin 8.2 GM/DL Hematocrit 25.7 % Mean Corpuscular Volume 89.6 FL Mean Corpuscular Hemoglobin 28.5 PG Mean Corpuscular Hemoglobin 31.8 % Concent Red Cell Distribution Width 14.8 % Platelet Count 286 TH/MM3 Mean Platelet Volume 10.1 FL Sodium Level 143 MEQ/L Potassium Level 3.9 MEQ/L Chloride Level 111 MEQ/L Carbon Dioxide Level 22.9 MEQ/L Anion Gap 9 MEQ/L Blood Urea Nitrogen 20 MG/DL Creatinine 0.53 MG/DL Estimat Glomerular Filtration 115 ML/MIN Rate Random Glucose 147 MG/DL Calcium Level 8.4 MG/DL Vancomycin Level Trough 9.8 MCG/ML Medical Decision Making Impression and Plan Day 13 after posterior fossa bleed, MAP 90, ICP in the normal range, weaning the EVD off. CT of the head planned in the morning. Continued metabolic support , DVT and PUD prophylaxis per ICU protocol, improving slightly neurologically but she is still critically ill. Total Minutes: 10 Jose Whitmore May 16, 2016 11:02
[2016-05-16] MEDS: LEVOFLOXACIN 750 MG PREMIX INJ 150 ML IV SCH (11:58)
[2016-05-16] MEDS: LABETALOL HCL 100 MG/20 ML VIAL IVS PRN (12:42)
[2016-05-16] MEDS: HYDROmorphone HCL PF 1 MG/ML VIAL IV PUSH PRN (16:08)
[2016-05-17] VITALS (18 sets, daily range): BP systolic 135–176; BP diastolic 63–79; PULSE 63–78; RESP 14–18; TEMP 97.9–98.9; O2SAT 34–100
[2016-05-17] MEDS: FREE WATER G-TUBE SCH ×6 (00:17→21:41)
[2016-05-17] MEDS: INSULIN ASPART SUPPLEMENTAL SCALE SQ SCH ×6 (00:22→20:00)
[2016-05-17] MEDS: levETIRAcetam INJ 500 MG in SODIUM CHLORIDE 0.9% INJ 100 ML IV SCH ×2 (00:22→12:11)
[2016-05-17] MEDS: CHLORHEXIDINE GLUCONATE 2 % 1 PACK (2 CLOTHS) TOP SCH (01:50)
[2016-05-17] MEDS: oxyCODONE HCL ORAL CONC 20 MG/ML SYRINGE PO SCH ×6 (02:38→21:40)
[2016-05-17] MEDS: RESP: ALBUTEROL 2.5 MG/IPRATROPIUM 0.5 MG NEB (SCH) NEB ×4 (03:16→19:42)
[2016-05-17] MEDS ORDERED: LIDOCAINE HCL 2% 100 MG/5 ML SYRINGE ONE (04:03)
[2016-05-17] MEDS ORDERED: ATROPINE SULFATE 1 MG/10 ML SYRINGE ONE (04:03)
[2016-05-17] MEDS ORDERED: EPINEPHrine HCL (1:10,000) 1 MG/10 ML SYRINGE ONE (04:03)
--- NOTE | 2016-05-17 05:06 | RADRPT ---
EXAM DATE/TIME: 05/17/2016 04:17 [facility] COMPARISON: CT BRAIN W/O CONTRAST, May 09, 2016, 3:31. INDICATIONS : Follow up hydrocephalus; post ventriculostomy. RADIATION DOSE: 52.13 CTDIvol (mGy) MEDICAL HISTORY : Hypertension. Chronic obstructive pulmonary disease. Cardiovascular diseaseCVA. Diabetes. Renal calcu li. SURGICAL HISTORY : Appendectomy. Cholecystectomy.Hysterectomy. ENCOUNTER: Subsequent ACUITY: 1 week PAIN SCALE: Non-responsive LOCATION: cranial TECHNIQUE: Multiple contiguous axial images were obtained of the head. Using automated exposure control and adj ustment of the mA and/or kV according to patient size, radiation dose was kept as low as reasonably a chievable to obtain optimal diagnostic quality images. FINDINGS: There postsurgical changes in the posterior fossa with left suboccipital craniectomy. Ventriculostomy is in place with mild increase in ventricular size. Blood is layering in the occipital horns. No acu te hemorrhage is seen. Pansinusitis is present. CONCLUSION: 1. Stable postsurgical changes 2. Mild increase in ventricular size when compared with the prior study Michael Mehta MD on May 17, 2016 at 5:02 Board Certified Radiologist. This report was verified electronically.
[2016-05-17] MEDS: LABETALOL HCL 200 MG TAB PO SCH ×3 (05:37→21:39)
[2016-05-17 06:08] LABS: BICARBONATE 23.6 MEQ/L (21.0-32.0); POTASSIUM 4.4 MEQ/L (3.5-5.1)
[2016-05-17] MEDS: AZTREONAM INJ 1,000 MG in SODIUM CHLORIDE 0.9% INJ 100 ML IV SCH ×3 (06:20→23:02)
[2016-05-17] MEDS: FAMOTIDINE 20 MG TAB PO SCH ×2 (07:51→21:39)
[2016-05-17] MEDS: ARTIFICIAL TEARS OPTH SOLN 15 ML BTL EACH EYE SCH ×3 (07:51→17:11)
[2016-05-17] MEDS: SODIUM CHLORIDE 0.9% FLUSH 5 ML FLUSH IVF SCH ×2 (07:51→21:41)
[2016-05-17] MEDS: VANCOMYCIN INJ 1,500 MG in SODIUM CHLORID 0.9% 500 ML INJ 500 ML IV SCH ×3 (07:51→23:03)
[2016-05-17] MEDS: FLUCONAZOLE 100 MG TAB PO SCH (07:51)
[2016-05-17] MEDS: POLYETHYLENE GLYCOL 17 GM PKG PO SCH ×2 (07:52→21:00)
[2016-05-17] MEDS: DOCUSATE SODIUM 50 MG/SENNA 8.6 MG TAB PO SCH ×2 (07:52→21:00)
[2016-05-17] MEDS: BISACODYL 10 MG SUPP RECTAL SCH (07:52)
[2016-05-17] MEDS: LACTULOSE SYRUP 20 GM/30 ML CUP PO SCH ×2 (07:52→21:00)
[2016-05-17] MEDS: INSULIN DETEMIR 100 UNITS/ML VIAL SQ SCH ×2 (07:53→21:00)
[2016-05-17 08:59] LABS: HEMATOCRIT 25.4 % (35.0-46.0); MEAN CELL VOLUME 87.6 FL (80.0-100.0); MEAN CORPUSCULAR HEMOGLOBIN 28.4 PG (27.0-34.0); MEAN CORPUSCULAR HGB CONC 32.4 % (32.0-36.0); PLATELET COUNT 244 TH/MM3 (150-450); RED CELL DISTRIBUTION WIDTH 14.2 % (11.6-17.2); REVIEW FLAG FINAL; WHITE BLOOD COUNT 10.8 TH/MM3 (4.0-11.0)
--- NOTE | 2016-05-17 09:03 | HHI.NSPN ---
(Bri Merchant) Note Status Status: Progress Note (Bri Merchant) Interval History Interval History This is a 65 year old female brought in by EMS as a stroke alert. She has history of multiple ischemic strokes in the past with residual left-sided weakness from the strokes. Patient has a history of Antiphospholipid syndrome and is on anticoagulated Coumadin. Apparently she was sitting down watching TV with her when she became unresponsive, with aphasia, nausea vomiting, dizziness, and increasing left-sided weakness. She is a known tyoe II diabetic and appears to be uncontrolled in ketoacidosis. EMS was called. She was brought to ED stroke alert. CT head revealed a posterior fossa ICH. She underwent emergen posterior fossa craniectomy with evacuation of cerebellar bleed and placement of ventriculostomy drain on 05/03/16. 05/04: well sedated. Pupils equal. EVD at 0 cm H20, ICPs below 10. 05/05: ICPs remains within normal limits, pupils equal, ventriculostomy draining well. 05/06: hypertensive, BP was up in the 200's systolic yesterday, on cardene. Currently running 150s. ICPs normal, EVD draining well. serum sodium 148. well sedated also for bp control. 05/07: intubated, sedated, pupils equal. EEG no ictal abnormalities. 05/10: EVD draining well, ICPs within normal limits. intubated and sedated on versed, no eye opening still. Fevers better, now with acute on chronic pancreatitis. CSF cultures pending. 05/11: no clinical changes, for trach/PEG today. 05/12: going for tracheostomy, ICPs wnl following raising of EVD to 5 cm yesterday 05/13: s/p tracheostomy placement, still on low dose Versed. positive cough/gag when suctioned, withdraws LE, pupils equal. still no report of eye opening or following commands. 05/17: challenging EVD, clamped over 24 hours,f/u CT Brain completed this am shows increase in ventricle size. No changes in neuro checks. (Bri Merchant) Labs, Micro, & Vital Signs Results Date Time Temp Pulse Resp B/P Pulse Ox O2 Delivery O2 Flow Rate FiO2 05/17/16 08:19 100 40 05/17/16 07:15 40 05/17/16 04:05 98 100 05/17/16 04:00 98.2 78 16 146/65 97 05/17/16 04:00 40 05/17/16 03:16 34 40 05/17/16 00:00 40 05/17/16 00:00 98.4 74 17 135/63 96 05/16/16 23:36 96 40 05/16/16 20:00 84 05/16/16 20:00 98.4 84 16 153/70 96 05/16/16 20:00 40 05/16/16 19:15 96 40 05/16/16 18:00 80 05/16/16 16:38 16 05/16/16 16:00 98.9 74 18 158/71 96 05/16/16 16:00 74 05/16/16 16:00 35 05/16/16 14:41 93 40 05/16/16 14:25 19 05/16/16 14:00 70 05/16/16 12:36 94 35 05/16/16 12:00 99.9 90 24 183/83 95 05/16/16 12:00 35 05/16/16 12:00 90 05/16/16 11:10 94 35 05/16/16 10:00 80 05/16/16 09:18 35 05/17/16 07:00 Intake Total 4643 ml Output Total 2841 ml Balance 1802 ml Constitutional Vital Signs Date Time Temp Pulse Resp B/P Pulse Ox O2 Delivery O2 Flow Rate FiO2 05/17/16 08:19 100 40 05/17/16 07:15 40 05/17/16 04:05 98 100 05/17/16 04:00 98.2 78 16 146/65 97 05/17/16 04:00 40 05/17/16 03:16 34 40 05/17/16 00:00 40 05/17/16 00:00 98.4 74 17 135/63 96 05/16/16 23:36 96 40 05/16/16 20:00 84 05/16/16 20:00 98.4 84 16 153/70 96 05/16/16 20:00 40 05/16/16 19:15 96 40 05/16/16 18:00 80 05/16/16 16:38 16 05/16/16 16:00 98.9 74 18 158/71 96 05/16/16 16:00 74 05/16/16 16:00 35 05/16/16 14:41 93 40 05/16/16 14:25 19 05/16/16 14:00 70 05/16/16 12:36 94 35 05/16/16 12:00 99.9 90 24 183/83 95 05/16/16 12:00 35 05/16/16 12:00 90 05/16/16 11:10 94 35 05/16/16 10:00 80 05/16/16 09:18 35 05/17/16 07:00 Intake Total 4643 ml Output Total 2841 ml Balance 1802 ml (Bri Merchant) Review of Systems/Exam Exam Ms. Spann is trached on CPAP. No significant eye opening. Right EVD is clamped. ICPs 19-21 Cranial Nerves: Pupils 4 mm bilateral, reactive to light. Motor: very minimal movement to stimulation, not following commands, no purposeful movements seen Reflexes: Plantars down Cerebellar: unable to assess Positive cough/gag when suctioned (Bri Merchant) Medications Current Medications Current Medications Medications (Trade) Dose Ordered Sig/Michelle Route PRN Reason Start Time Stop Time Status Last Admin Dose Admin Artificial Tears (Tears Naturale Opth Soln) 1 drop TID EACH EYE 05/03/16 09:00 05/17/16 07:51 Ondansetron HCl (Zofran Inj) 4 mg Q6H PRN IV NAUSEA OR VOMITING 05/03/16 04:30 Miscellaneous Information 1 Q361D XX 05/03/16 04:30 05/03/16 04:30 Chlorhexidine Gluconate (Chlorhexidine 2% Cloth) Taper DAILY@04 TOP 05/04/16 04:00 04/30/17 03:59 05/14/16 04:00 Chlorhexidine Gluconate (Chlorhexidine 2% Cloth) 3 pack UNSCH PRN TOP HYGIENIC CARE 05/03/16 04:30 IV Flush (NS Flush) 2 ml UNSCH PRN IVF FLUSH AFTER USING IV ACCESS 05/03/16 12:30 05/10/16 01:48 IV Flush 2 ml 2 ml BID IVF 05/03/16 21:00 05/17/16 07:51 Levetriacetam/ Sodium Chloride (Keppra Inj/NS Inj) 105 ml @ 400 mls/hr Q12H IV 05/03/16 13:00 05/17/16 00:22 Calcium Gluconate 1 gm 1 gm UNSCH PRN IV SEE LABEL COMMENTS 05/03/16 12:30 Potassium Chloride 100 ml @ 50 mls/hr UNSCH PRN IV POTASSIUM LESS THAN 4 05/03/16 12:30 05/04/16 06:56 Magnesium Sulfate/ Sodium Chloride (Magnesium Sulfate Inj/NS Inj) 108 ml @ 108 mls/hr UNSCH PRN IV MAGNESIUM LESS THAN 2 05/03/16 12:30 Acetaminophen 650 mg 650 mg Q4H PRN PO TEMPERATURE > 101.5 F 05/03/16 12:30 05/08/16 10:38 Potassium Chloride 100 ml @ 50 mls/hr Q2H PRN IV For Potassium 2.8 - 3.2 mEq/L 05/04/16 08:45 Potassium Chloride (KCl 20 Meq Premix Inj) 100 ml @ 50 mls/hr Q2H PRN IV For Potassium 2.8 - 3.2 mEq/L 05/04/16 08:45 Potassium Chloride 40 meq 40 meq UNSCH PRN PO/TUBE For Potassium 3.3 - 3.5 mEq/L 05/04/16 08:45 Potassium Chloride 100 ml @ 25 mls/hr UNSCH PRN IV For Potassium 3.3 - 3.5 mEq/L 05/04/16 08:45 Potassium Chloride 100 ml @ 50 mls/hr Q2H PRN IV For Potassium 3.3 - 3.5 mEq/L 05/04/16 08:45 Magnesium Sulfate/ Sodium Chloride (Magnesium Sulfate Inj/NS Inj) 100 ml @ 50 mls/hr UNSCH PRN IV For Magnesium 0.9 - 1.1 mg/dL 05/04/16 08:45 Magnesium Oxide 800 mg 800 mg UNSCH PRN PO For Magnesium 1.2 - 1.6 mg/dL 05/04/16 08:45 Magnesium Sulfate/ Sodium Chloride (Magnesium Sulfate Inj/NS Inj) 100 ml @ 50 mls/hr UNSCH PRN IV For Magnesium 1.2 - 1.6 mg/dL 05/04/16 08:45 Potassium Phosphate 2000 mg 2,000 mg Q4H PRN PO For Phosphorus < 2.5 mg/dL 05/04/16 08:45 Sodium Phosphate/ Sodium Chloride (Sodium Phosphate Inj/NS 250 ml Inj) 250 ml @ 42 mls/hr UNSCH PRN IV For Phosphorus < 2.5 mg/dL 05/04/16 08:45 Potassium Chloride (KCl 40 Meq/30 ml Liq) 40 meq UNSCH PRN PO/TUBE SEE LABEL COMMENTS 05/04/16 08:45 Potassium Phosphate 2000 mg 2,000 mg UNSCH PRN PO/TUBE SEE LABEL COMMENTS 05/04/16 08:45 Potassium Phosphate/Sodium Chloride (Potassium Phosphate Inj/NS 250 ml Inj) 260 ml @ 42 mls/hr UNSCH PRN IV SEE LABEL COMMENTS 05/04/16 08:45 Insulin Aspart (NovoLOG SUPPLEMENTAL SCALE) 1 Q4HR SQ 05/04/16 12:00 05/17/16 00:22 Dextrose (D50w (Vial) Inj) 25 ml UNSCH PRN IV HYPOGLYCEMIA-SEE COMMENTS 05/04/16 08:45 05/09/16 20:21 Glucagon (Glucagon Inj) 1 mg UNSCH PRN IM/SQ HYPOGLYCEMIA-SEE COMMENTS 05/04/16 08:45 Insulin Detemir (Levemir Inj) 50 units Q12HR SQ 05/06/16 21:00 05/17/16 07:53 Labetalol HCl (Trandate Inj) 20 mg Q1H PRN IVS SBP greater than 160mm Hg 05/06/16 10:00 05/16/16 12:42 Metoprolol Tartrate (Lopressor Inj) 5 mg Q4H PRN IV PUSH HR > 100 05/06/16 11:00 05/14/16 17:51 Bisacodyl (Dulcolax Supp) 10 mg DAILY RECTAL 05/07/16 09:55 05/16/16 08:24 Polyethylene Glycol (Miralax) 17 gm BID PO 05/06/16 09:55 05/16/16 21:01 Lactulose (Lactulose Liq) 30 ml BID PO 05/06/16 11:00 05/16/16 21:00 Senna/Docusate Sodium (Meaghan-Colace) 1 tab BID PO 05/06/16 10:00 05/16/16 21:00 Hydralazine HCl (Apresoline Inj) 10 mg Q30M PRN IV PUSH SYS BP GREATER THAN 150 MMHG 05/06/16 10:00 05/16/16 17:17 Miscellaneous (Pill Splitter) 1 ea UNSCH PRN OTHER SEE LABEL COMMENTS 05/06/16 21:00 Amlodipine Besylate 10 mg 10 mg DAILY PO 05/09/16 09:00 Hold Aztreonam 1000 mg/ Sodium Chloride 100 ml @ 200 mls/hr Q8H IV 05/08/16 22:45 05/17/16 06:20 Pharmacy Profile Note (Vancomycin Consult Pharmacy) 0 ml @ 0 mls/hr UNSCH OTHER 05/09/16 14:45 Hydromorphone HCl (Dilaudid Pf Inj) 0.5 mg Q4H PRN IV PUSH pain 8-10 or not taking po 05/13/16 09:30 05/16/16 16:08 Oxycodone HCl (Roxicodone Intensol Liq) 5 mg Q4H PO 05/13/16 10:00 05/17/16 05:37 Haloperidol Lactate (Haldol Inj) 5 mg Q4H PRN IV agitation 05/13/16 09:30 Water (Free Water) 300 ml Q4HR G-TUBE 05/14/16 12:00 05/17/16 07:51 Fluconazole 100 mg 100 mg DAILY PO 05/15/16 09:00 05/18/16 08:59 05/17/16 07:51 Levofloxacin/ Dextrose (Levaquin 750 Mg Premix Inj) 150 ml @ 100 mls/hr Q24H IV 05/15/16 12:00 05/16/16 11:58 Famotidine 20 mg 20 mg BID PO 05/14/16 21:00 05/17/16 07:51 Vancomycin HCl/ Sodium Chloride (Vancomycin Inj/ NS 500 ml Inj) 515 ml @ 250 mls/hr Q12H IV 05/16/16 20:00 05/17/16 07:51 Miscellaneous Information SPECIFIC LAB TO BE DRAWN:VANCOMYCIN TROUGH DATE TO... ONCE ONCE XX 05/17/16 19:45 05/17/16 19:46 Labetalol HCl (Trandate) 400 mg Q8HR PO 05/16/16 22:00 05/17/16 05:37 (Bri Merchant) Medical Decision Making MDM Remarks 65 y/o female with cerebellar bleed s/p posterior fossa craniectomy with placement of ventriculoperitoneal shunt coagulopathy with supratherapeutic INR, s/p Vitamin K and KCentra history of antiphospholipid antibody EEG reports no ictal activities Evidence of hydrocephalus following clamping of EVD (Bri Merchant) Plan Plan Remarks f/u CT Brain reviewed with moderate hydrocephalus, reopen drain to 7 cm H20, will need permanent [employer] shunt, plan Tuesday dc wound liam cont critical care mgt, CPAP trials will dw regarding [employer] shunt placement (Bri Merchant) Attending Statement Discussed with her The exam, history, and the medical decision-making described in the above note were completed with the assistance of the mid-level provider. I reviewed and agree with the findings presented. I attest that I had a [id number] encounter with the patient on the same day, and personally performed and documented my assessment and findings in the medical record. (Oumar Chavez MD) Bri Merchant May 17, 2016 09:03 Oumar Chavez MD May 17, 2016 15:36
--- NOTE | 2016-05-17 09:09 | HHI.CCPN ---
Subjective Remarks/Hospital Course 05/03: 65 years old female was brought in by EMS for stroke alert. Patient has history of multiple strokes in the past. Patient has residual left-sided weakness from the strokes. Patient has an Antiphospholipid syndrome and is on Coumadin. Patient was sitting down watching TV with her then patient started became more unresponsive, having aphasia, nausea vomiting, dizziness, increasing left-sided weakness. EMS was called. Patient was brought to ED stroke alert. CT head revealed large posterior fossa ICH. 05/04: Remains sedated, orally intubated on mechanical ventilation. Underwent suboccipital decompression on 05/03. Ventriculostomy in place. ICPs below 10. Drained 150 cc CSF overnight 05/05: acutely this afternoon, her SBP increased from 150s to 200s. neuro exam unchanged, remains sedated on propofol without sedation vacation today per nsgy. pupillary exam unchanged, 2mm equal, reactive. required labetalol 60mg iv , esmolol 150mcg/kg/min, and cardene 15mg/hr to bring back down to goal SBP 150s. EVD still at 0 per nsgy. ICP in lateral ventricles 1. 05/06: severely hypertensive and febrile. re-cultured overnight. sputum growing GNR. 05/07: Patient remains hypertensive currently on nicardipine and esmolol infusions. Instructions given to titrated up nicardipine, start Norvasc 5 mg daily. Sputum culture with pansensitive Klebsiella. at the bedside updated 05/08: No improvement in neuro status. Continues to spike fever 103.3 MAXIMUM TEMPERATURE. Off nicardipine and esmolol. We'll start scheduled Tylenol and cooling blanket. repeat bruce culture 05/09: Continues to have persistent fever MAXIMUM TEMPERATURE 102, white count remains at 16,000. ID consulted also have ordered a lipase, US liver, venous ultrasound of all extremities. I will also change the central line, and give single dose of vancomycin 05/10: MAXIMUM TEMPERATURE is 102, but currently afebrile. Hemoglobin dropped to 6.8, WBC count 17.1. Sodium 152. Neuro exam remains unchanged. Venous ultrasound negative. Appreciate ID and GI consult. Started on Levophed 4 mcg/ min today 05/11: Tmax 101.4, but fever trending down. WBC 17. Hb 7.2. Transfuse 1U PRBC. Na 150. Off Levophed now, hypertensive. BP Labile. All cultures negative 05/12: Afebrile white count trending down 14,000 today. Restart her on Cardene infusion for hypotension. Plan for OR trach today by Dr. Mcfarlane 05/13: s/p trach yesterday. plan for IR to place G-J tube today. neurosurgery challenging EVD today- raised to 10. weaning sedation. poor neurologic exam persists. 05/14: EVD put out 90cc/24h at 10. no neuro improvements. 05/15: EVD put out 25cc/24h at 15. no neuro changes. Na slowly normalizing. also with significant yeast infection over back of neck. 05/16: EVD clamped at 08:30am. ICP stable. persistently poor neuro exam. Na continues to normalize. will trial CPAP today. 05/17: EVD remains clamped, ICP stable, CT head stable with mild ventricular enlargement. Neuro exam remains unchanged. Tolerated 3 hours C Pap yesterday, attempt 1-2 hours T piece trial yesterday Objective Vital Signs Date Time Temp Pulse Resp B/P Pulse Ox O2 Delivery O2 Flow Rate FiO2 05/17/16 08:19 100 40 05/17/16 04:00 98.2 78 16 146/65 Intake and Output 05/16/16 05/16/16 05/17/16 08:00 16:00 00:00 Intake Total 1030 ml 1790 ml 1655 ml Output Total 842 ml 969 ml 1322 ml Balance 188 ml 821 ml 333 ml Result Diagram: 05/16/16 0506 05/17/16 0504 Imaging Last [address] 05/03/16 0000 Signed Impressions: Service Date/Time: Tuesday, May 03, 2016 01:18 - CONCLUSION: Large acute posterior fossa hemorrhage. There is also blood in the fourth and third ventricles. Report was called to Dr. Rodrigues at 1:30 AM. Haim Anaya MD Chest X-Ray 05/03/16 0000 Signed Impressions: Service Date/Time: Tuesday, May 03, 2016 01:53 - CONCLUSION: 1. Endotracheal tube tip is about 1.5 cm above the luis antonio. 2. Nasogastric tube courses into the stomach. 3. Lungs reasonably clear. Haim Anaya MD Objective Remarks HEENT: Pupils R 3mm L 2 mm, reactive to light. trached. Pallor present, no icterus, tongue/ mucosa moist. Neck: Thick neck limits JVD exam, rash over posterior neck Chest/Pulm: on mech vent, good air entry bilaterally, no wheezing or crackles CVS: S1-S2 regular, no murmur GI/abdomen: soft, nontender, bowel sounds sluggish Extremities: warm bilaterally, no edema Neuro:Pupils R 3mm L 2 mm, reactive to light. Ventriculostomy in place, currently clamped. Withdraws bilateral lower extremities to pain, upper extremity remains flaccid Urinary Catheter: Yes Assessment to: Continue A/P Problem List: (1) Intracranial hemorrhage ICD Code: I62.9 Status: Acute (2) Respiratory failure with hypoxia ICD Code: J96.91 Status: Acute (3) Hypertension ICD Code: I10 Status: Acute (4) Atrial fibrillation ICD Code: I48.91 Status: Acute (5) Coagulopathy ICD Code: D68.9 Status: Acute (6) Diabetes ICD Code: E11.9 Status: Acute Assessment and Plan Neuro: Intracranial hemorrhagic stroke/large acute posterior fossa hemorrhage with intraventricular extension Acute encephalopathy - s/p posterior decompression on 05/04 - s/p hyperosmolar therapy. - EVD, monitor ICP. Keppra for seizure prophylaxis. Neurosurgery Dr. Chavez - EVD clamped yesterday, ICP remained stable, CT of the head remained stable except mild ventriculomegaly. EVD removal per Dr. Chavez - Scheduled Tylenol for fever - Haldol prn for agitation - oxycodone and hydromorphone for agitation or tachypnea/ vent synchrony - Trial dose of Provigil on 05/14 without effect. did not continue. Resp: Acute hypoxic and hypercarbic Respiratory failure - Intubated for airway protection, continue mechanical ventilation. - SBT with 1- 2 hour trach trial today - s/p trach 05/[address] Jailene Pinedo `q 6 hour and PRN CVS Hypertension - Continue labetalol to 200mg po q8h. - Holding amlodipine. - Hydralazine 20mg iv q20min and labetalol 20mg iv q1h for SBP >180 - Metoprolol 5mg iv q4h prn for HR > 100. - SBP goal <150, better controlled today. A.Fib - rate controlled - Lopressor i.v. labetalol PO HEME Coagulopathy - reversed Coumadin with Vit K, FFP and Kcentra on admission. ENDO DM -Levemir 50 units [id number]. High-dose sliding scale insulin. 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 - EGD/colonoscopy 03/15/15- no evidence of upper bleed, colonoscopy revealed active bleeding through out the colon with poor visualization. - S/P bleed scan 03/14/15- positive potentially duodenal. S/P Angiogram of GDA, right colic, ileocolic, and SMA - Rpt. Colonoscopy (03/17/15)---> Colonic polyp, rectal ulcer, indurated area in ascending colon biopsied -continue free water 300mL q4h per tube-reduce to 100ml q6 -serum Na normalizing slowly. - TF at goal. ID Persistent fever/leukocytosis-now fevere has resolved - Leukocytosis noted. bruce cultured-neg to date. Continue vancomycin Azactam and Levaquin, and Diflucan. ID Dr. Kin Adan. Descalate therapy per Dr. Adan - Pansensitive Klebsiella in sputum. patient had witnessed aspiration event in OR per nursing report. DVT/GI prophylaxis - TEDs/SCDs/Pepcid OVERALL IMPRESSION: remains critically ill. challenging EVD, may require permanent shunt. Likely will require long-term vent wean. still with resolving pancreatitis, encephalopathy, infection. without ongoing full support, would . Critical Care: The total critical care time was 32 minutes. Time to perform other separately billable procedures was not included in the critical care time. Problem Qualifiers (1) Respiratory failure with hypoxia: Qualified Code: J96.01 - Acute respiratory failure with hypoxia Deidre Whitmore MD May 17, 2016 09:09
[2016-05-17] MEDS: LEVOFLOXACIN 750 MG PREMIX INJ 150 ML IV SCH (12:11)
--- NOTE | 2016-05-17 13:12 | HHI.IDPN ---
Note Infectious Disease Note Patient on CPAP. 35% FIO2. Non responsive. Ventriculostomy has link colored CSF. Afebrile. Elevatd BP. post trach and PEG. Diagnosed with cerebellar intracranial hemorrhage. The patient was admitted on 05/03/2016 as a stroke alert. Seen for high spiking fever. PAST MEDICAL HISTORY 1. Hypertension. 2. Atrial fibrillation. 3. Diabetes mellitus. 4. Antiphospholipid syndrome. 5. Cerebrovascular accident. 6. Cholecystectomy. 7. Total hysterectomy. 8. Kidney stones. ALLERGIES LATEX AND ROCEPHIN. MEDICATIONS 1. Aztreonam. 2. Vancomycin. 3. Levaquin. 4. Fluconazole. OBJECTIVE: Vital Signs Date Time Temp Pulse Resp B/P Pulse Ox O2 Delivery O2 Flow Rate FiO2 05/17/16 11:41 99 40 05/17/16 11:12 12 05/17/16 10:00 74 05/17/16 08:19 100 40 05/17/16 08:00 70 05/17/16 08:00 98.4 70 17 158/68 98 05/17/16 08:00 40 05/17/16 07:15 40 05/17/16 04:05 98 100 05/17/16 04:00 98.2 78 16 146/65 97 05/17/16 04:00 40 05/17/16 03:16 34 40 05/17/16 00:00 40 05/17/16 00:00 98.4 74 17 135/63 96 05/16/16 23:36 96 40 05/16/16 20:00 84 05/16/16 20:00 98.4 84 16 153/70 96 05/16/16 20:00 40 05/16/16 19:15 96 40 05/16/16 18:00 80 05/16/16 16:38 16 05/16/16 16:00 98.9 74 18 158/71 96 05/16/16 16:00 74 05/16/16 16:00 35 05/16/16 14:41 93 40 05/16/16 14:00 70 05/16/16 05/16/16 05/17/16 15:00 23:00 07:00 Intake Total 1790 ml 1655 ml 1198 ml Output Total 969 ml 1322 ml 550 ml Balance 821 ml 333 ml 648 ml Intake Oral 0 ml IV Total 751 ml 856 ml 258 ml Tube Feeding 439 ml 499 ml 340 ml Other 600 ml 300 ml 600 ml Output Urine Total 950 ml 1300 ml 550 ml Stool Total 0 ml Drainage Total 19 ml 22 ml 0 ml # Bowel Movements 2 Laboratory Tests Test 05/16/16 05/17/16 05:06 07:50 White Blood Count 11.0 TH/MM3 10.8 TH/MM3 Red Blood Count 2.87 MIL/MM3 2.90 MIL/MM3 Hemoglobin 8.2 GM/DL 8.2 GM/DL Hematocrit 25.7 % 25.4 % Mean Corpuscular Volume 89.6 FL 87.6 FL Mean Corpuscular Hemoglobin 28.5 PG 28.4 PG Mean Corpuscular Hemoglobin 31.8 % 32.4 % Concent Red Cell Distribution Width 14.8 % 14.2 % Platelet Count 286 TH/MM3 244 TH/MM3 Mean Platelet Volume 10.1 FL 11.0 FL Hematology Comments Laboratory Tests Test 05/16/16 05/17/16 05:06 05:04 Sodium Level 143 MEQ/L 139 MEQ/L Potassium Level 3.9 MEQ/L 4.4 MEQ/L Chloride Level 111 MEQ/L 106 MEQ/L Carbon Dioxide Level 22.9 MEQ/L 23.6 MEQ/L Anion Gap 9 MEQ/L 9 MEQ/L Blood Urea Nitrogen 20 MG/DL 17 MG/DL Creatinine 0.53 MG/DL 0.42 MG/DL Estimat Glomerular Filtration 115 ML/MIN 151 ML/MIN Rate Random Glucose 147 MG/DL 85 MG/DL Calcium Level 8.4 MG/DL 8.6 MG/DL Microbiology Date/Time Procedure Status Source Growth 05/11/16 18:30 Urine Culture - Final Complete Urine Catheterized Urine Annemarie Albicans PHYSICAL EXAMINATION GENERAL: On the ventilator. Unresponsive. HEENT: No icterus. LUNGS: Diminished clear breath sounds. HEART: Regular S1S2. No murmurs. ABDOMEN: Obese. Soft. Decreased bowel sounds. EXTREMITIES: No clubbing or cyanosis. 3 + edema. SKIN: No rash. NEUROLOGICAL: Unable to fully assess. PSYCHIATRIC: Unable to fully assess. IMPRESSION 1. Prior persistent fever improved. Possible secondary to pulmonary infection versus sepsis versus central nervous system injury and possibly central fever. 2. Leukocytosis. Secondary to #1. WBC improved. 3. Cerebellar intracranial hemorrhage. 4. Acute respiratory failure. 5. Previous pneumonia due to Klebsiella. 6. Acute kidney disease. Improved. 7. UTI - annemarie. RECOMMENDATIONS 1. Stop aztreonam. 2. Stop vancomycin. 3. Continue Levaquin. 4. Continue Diflucan. 5. Monitor temperature and white blood cell count. Sukhi Adan MD May 17, 2016 13:12
[2016-05-17] MEDS ORDERED: FUROSEMIDE 20 MG/2 ML VIAL IV PUSH ONE (13:15)
[2016-05-17] MEDS ORDERED: PHARMACY ORDERED LAB XX ONE (19:45)
[2016-05-18] VITALS (18 sets, daily range): BP systolic 119–165; BP diastolic 59–73; PULSE 63–98; RESP 10–20; TEMP 97.9–99.5; O2SAT 95–100
[2016-05-18] MEDS: FREE WATER G-TUBE SCH ×3 (02:04→08:56)
[2016-05-18] MEDS: levETIRAcetam INJ 500 MG in SODIUM CHLORIDE 0.9% INJ 100 ML IV SCH ×2 (02:05→14:28)
[2016-05-18] MEDS: oxyCODONE HCL ORAL CONC 20 MG/ML SYRINGE PO SCH ×6 (02:05→20:41)
[2016-05-18] MEDS: RESP: ALBUTEROL 2.5 MG/IPRATROPIUM 0.5 MG NEB (SCH) NEB ×4 (02:26→19:48)
[2016-05-18] MEDS: CHLORHEXIDINE GLUCONATE 2 % 1 PACK (2 CLOTHS) TOP SCH (04:00)
[2016-05-18] MEDS: INSULIN ASPART SUPPLEMENTAL SCALE SQ SCH ×6 (04:00→20:00)
[2016-05-18] MEDS: LABETALOL HCL 200 MG TAB PO SCH ×3 (05:37→20:40)
[2016-05-18] MEDS: AZTREONAM INJ 1,000 MG in SODIUM CHLORIDE 0.9% INJ 100 ML IV SCH (05:37)
[2016-05-18 06:05] LABS: HEMATOCRIT 25.2 % (35.0-46.0); MEAN CELL VOLUME 87.4 FL (80.0-100.0); MEAN CORPUSCULAR HEMOGLOBIN 28.7 PG (27.0-34.0); MEAN CORPUSCULAR HGB CONC 32.9 % (32.0-36.0); PLATELET COUNT 278 TH/MM3 (150-450); RED BLOOD COUNT 2.88 MIL/MM3 (4.00-5.30); RED CELL DISTRIBUTION WIDTH 14.4 % (11.6-17.2); REVIEW FLAG FINAL; WHITE BLOOD COUNT 8.3 TH/MM3 (4.0-11.0)
[2016-05-18 06:17] LABS: BICARBONATE 25.7 MEQ/L (21.0-32.0); POTASSIUM 3.7 MEQ/L (3.5-5.1)
[2016-05-18] MEDS: LACTULOSE SYRUP 20 GM/30 ML CUP PO SCH ×2 (08:57→20:41)
[2016-05-18] MEDS: SODIUM CHLORIDE 0.9% FLUSH 5 ML FLUSH IVF SCH ×2 (08:57→20:41)
--- NOTE | 2016-05-18 08:57 | HHI.NSPN ---
(Bri Merchant) Note Status Status: Progress Note (Bri Merchant) Interval History Interval History This is a 65 year old female brought in by EMS as a stroke alert. She has history of multiple ischemic strokes in the past with residual left-sided weakness from the strokes. Patient has a history of Antiphospholipid syndrome and is on anticoagulated Coumadin. Apparently she was sitting down watching TV with her when she became unresponsive, with aphasia, nausea vomiting, dizziness, and increasing left-sided weakness. She is a known tyoe II diabetic and appears to be uncontrolled in ketoacidosis. EMS was called. She was brought to ED stroke alert. CT head revealed a posterior fossa ICH. She underwent emergen posterior fossa craniectomy with evacuation of cerebellar bleed and placement of ventriculostomy drain on 05/03/16. 05/04: well sedated. Pupils equal. EVD at 0 cm H20, ICPs below 10. 05/05: ICPs remains within normal limits, pupils equal, ventriculostomy draining well. 05/06: hypertensive, BP was up in the 200's systolic yesterday, on cardene. Currently running 150s. ICPs normal, EVD draining well. serum sodium 148. well sedated also for bp control. 05/07: intubated, sedated, pupils equal. EEG no ictal abnormalities. 05/10: EVD draining well, ICPs within normal limits. intubated and sedated on versed, no eye opening still. Fevers better, now with acute on chronic pancreatitis. CSF cultures pending. 05/11: no clinical changes, for trach/PEG today. 05/12: going for tracheostomy, ICPs wnl following raising of EVD to 5 cm yesterday 05/13: s/p tracheostomy placement, still on low dose Versed. positive cough/gag when suctioned, withdraws LE, pupils equal. still no report of eye opening or following commands. 05/17: challenging EVD, clamped over 24 hours,f/u CT Brain completed this am shows increase in ventricle size. No changes in neuro checks. 05/18: for ventriculoperitoenal shunt tomorrow, EVD draining well, ICPs within normal limits. (Bri Merchant) Labs, Micro, & Vital Signs Results Date Time Temp Pulse Resp B/P Pulse Ox O2 Delivery O2 Flow Rate FiO2 05/18/16 07:34 100 40 05/18/16 06:00 66 05/18/16 04:02 100 40 05/18/16 04:00 70 05/18/16 04:00 40 05/18/16 04:00 98.4 70 18 158/73 100 05/18/16 02:00 72 05/18/16 00:00 40 05/18/16 00:00 97.9 63 10 160/67 100 05/18/16 00:00 63 05/17/16 22:40 100 40 05/17/16 22:00 70 05/17/16 20:00 97.9 76 14 156/68 100 05/17/16 20:00 76 05/17/16 20:00 40 05/17/16 19:40 100 45 05/17/16 18:00 74 05/17/16 16:15 92 T-piece 45 05/17/16 16:00 72 05/17/16 16:00 98.0 76 14 157/72 95 05/17/16 15:32 94 40 05/17/16 14:25 16 05/17/16 14:00 63 05/17/16 12:00 72 05/17/16 12:00 98.9 72 18 176/79 97 05/17/16 12:00 40 05/17/16 11:41 99 40 05/17/16 10:00 74 05/18/16 07:00 Intake Total 4486 ml Output Total 4219 ml Balance 267 ml Constitutional Vital Signs Date Time Temp Pulse Resp B/P Pulse Ox O2 Delivery O2 Flow Rate FiO2 05/18/16 07:34 100 40 05/18/16 06:00 66 05/18/16 04:02 100 40 05/18/16 04:00 70 05/18/16 04:00 40 05/18/16 04:00 98.4 70 18 158/73 100 05/18/16 02:00 72 05/18/16 00:00 40 05/18/16 00:00 97.9 63 10 160/67 100 05/18/16 00:00 63 05/17/16 22:40 100 40 05/17/16 22:00 70 05/17/16 20:00 97.9 76 14 156/68 100 05/17/16 20:00 76 05/17/16 20:00 40 05/17/16 19:40 100 45 05/17/16 18:00 74 05/17/16 16:15 92 T-piece 45 05/17/16 16:00 72 05/17/16 16:00 98.0 76 14 157/72 95 05/17/16 15:32 94 40 05/17/16 14:25 16 05/17/16 14:00 63 05/17/16 12:00 72 05/17/16 12:00 98.9 72 18 176/79 97 05/17/16 12:00 40 05/17/16 11:41 99 40 05/17/16 10:00 74 05/18/16 07:00 Intake Total 4486 ml Output Total 4219 ml Balance 267 ml (Bri Merchant) Review of Systems/Exam Exam Ms. Spann is trached on CPAP. No significant eye opening. Right EVD is open, draining. ICPs below 10 Cranial Nerves: Pupils equal Motor: very minimal movement to stimulation, not following commands, no purposeful movements seen Reflexes: Plantars down Cerebellar: unable to assess Positive cough/gag when suctioned (Bri Merchant) Medications Current Medications Current Medications Medications (Trade) Dose Ordered Sig/Michelle Route PRN Reason Start Time Stop Time Status Last Admin Dose Admin Artificial Tears (Tears Naturale Opth Soln) 1 drop TID EACH EYE 05/03/16 09:00 05/17/16 17:11 Ondansetron HCl (Zofran Inj) 4 mg Q6H PRN IV NAUSEA OR VOMITING 05/03/16 04:30 Miscellaneous Information 1 Q361D XX 05/03/16 04:30 05/03/16 04:30 Chlorhexidine Gluconate (Chlorhexidine 2% Cloth) Taper DAILY@04 TOP 05/04/16 04:00 04/30/17 03:59 05/14/16 04:00 Chlorhexidine Gluconate (Chlorhexidine 2% Cloth) 3 pack UNSCH PRN TOP HYGIENIC CARE 05/03/16 04:30 IV Flush (NS Flush) 2 ml UNSCH PRN IVF FLUSH AFTER USING IV ACCESS 05/03/16 12:30 05/10/16 01:48 IV Flush 2 ml 2 ml BID IVF 05/03/16 21:00 05/17/16 21:41 Levetriacetam/ Sodium Chloride (Keppra Inj/NS Inj) 105 ml @ 400 mls/hr Q12H IV 05/03/16 13:00 05/18/16 02:05 Calcium Gluconate 1 gm 1 gm UNSCH PRN IV SEE LABEL COMMENTS 05/03/16 12:30 Potassium Chloride 100 ml @ 50 mls/hr UNSCH PRN IV POTASSIUM LESS THAN 4 05/03/16 12:30 05/04/16 06:56 Magnesium Sulfate/ Sodium Chloride (Magnesium Sulfate Inj/NS Inj) 108 ml @ 108 mls/hr UNSCH PRN IV MAGNESIUM LESS THAN 2 05/03/16 12:30 Acetaminophen 650 mg 650 mg Q4H PRN PO TEMPERATURE > 101.5 F 05/03/16 12:30 05/08/16 10:38 Potassium Chloride 100 ml @ 50 mls/hr Q2H PRN IV For Potassium 2.8 - 3.2 mEq/L 05/04/16 08:45 Potassium Chloride (KCl 20 Meq Premix Inj) 100 ml @ 50 mls/hr Q2H PRN IV For Potassium 2.8 - 3.2 mEq/L 05/04/16 08:45 Potassium Chloride 40 meq 40 meq UNSCH PRN PO/TUBE For Potassium 3.3 - 3.5 mEq/L 05/04/16 08:45 Potassium Chloride 100 ml @ 25 mls/hr UNSCH PRN IV For Potassium 3.3 - 3.5 mEq/L 05/04/16 08:45 Potassium Chloride 100 ml @ 50 mls/hr Q2H PRN IV For Potassium 3.3 - 3.5 mEq/L 05/04/16 08:45 Magnesium Sulfate/ Sodium Chloride (Magnesium Sulfate Inj/NS Inj) 100 ml @ 50 mls/hr UNSCH PRN IV For Magnesium 0.9 - 1.1 mg/dL 05/04/16 08:45 Magnesium Oxide 800 mg 800 mg UNSCH PRN PO For Magnesium 1.2 - 1.6 mg/dL 05/04/16 08:45 Magnesium Sulfate/ Sodium Chloride (Magnesium Sulfate Inj/NS Inj) 100 ml @ 50 mls/hr UNSCH PRN IV For Magnesium 1.2 - 1.6 mg/dL 05/04/16 08:45 Potassium Phosphate 2000 mg 2,000 mg Q4H PRN PO For Phosphorus < 2.5 mg/dL 05/04/16 08:45 Sodium Phosphate/ Sodium Chloride (Sodium Phosphate Inj/NS 250 ml Inj) 250 ml @ 42 mls/hr UNSCH PRN IV For Phosphorus < 2.5 mg/dL 05/04/16 08:45 Potassium Chloride (KCl 40 Meq/30 ml Liq) 40 meq UNSCH PRN PO/TUBE SEE LABEL COMMENTS 05/04/16 08:45 Potassium Phosphate 2000 mg 2,000 mg UNSCH PRN PO/TUBE SEE LABEL COMMENTS 05/04/16 08:45 Potassium Phosphate/Sodium Chloride (Potassium Phosphate Inj/NS 250 ml Inj) 260 ml @ 42 mls/hr UNSCH PRN IV SEE LABEL COMMENTS 05/04/16 08:45 Insulin Aspart (NovoLOG SUPPLEMENTAL SCALE) 1 Q4HR SQ 05/04/16 12:00 05/17/16 00:22 Dextrose (D50w (Vial) Inj) 25 ml UNSCH PRN IV HYPOGLYCEMIA-SEE COMMENTS 05/04/16 08:45 05/09/16 20:21 Glucagon (Glucagon Inj) 1 mg UNSCH PRN IM/SQ HYPOGLYCEMIA-SEE COMMENTS 05/04/16 08:45 Insulin Detemir (Levemir Inj) 50 units Q12HR SQ 05/06/16 21:00 05/17/16 07:53 Labetalol HCl (Trandate Inj) 20 mg Q1H PRN IVS SBP greater than 160mm Hg 05/06/16 10:00 05/16/16 12:42 Metoprolol Tartrate (Lopressor Inj) 5 mg Q4H PRN IV PUSH HR > 100 05/06/16 11:00 05/14/16 17:51 Bisacodyl (Dulcolax Supp) 10 mg DAILY RECTAL 05/07/16 09:55 05/16/16 08:24 Polyethylene Glycol (Miralax) 17 gm BID PO 05/06/16 09:55 05/16/16 21:01 Lactulose (Lactulose Liq) 30 ml BID PO 05/06/16 11:00 05/16/16 21:00 Senna/Docusate Sodium (Meaghan-Colace) 1 tab BID PO 05/06/16 10:00 05/16/16 21:00 Hydralazine HCl (Apresoline Inj) 10 mg Q30M PRN IV PUSH SYS BP GREATER THAN 150 MMHG 05/06/16 10:00 05/16/16 17:17 Miscellaneous (Pill Splitter) 1 ea UNSCH PRN OTHER SEE LABEL COMMENTS 05/06/16 21:00 Amlodipine Besylate 10 mg 10 mg DAILY PO 05/09/16 09:00 Hold Aztreonam 1000 mg/ Sodium Chloride 100 ml @ 200 mls/hr Q8H IV 05/08/16 22:45 05/18/16 05:37 Pharmacy Profile Note (Vancomycin Consult Pharmacy) 0 ml @ 0 mls/hr UNSCH OTHER 05/09/16 14:45 Hydromorphone HCl (Dilaudid Pf Inj) 0.5 mg Q4H PRN IV PUSH pain 8-10 or not taking po 05/13/16 09:30 05/16/16 16:08 Oxycodone HCl (Roxicodone Intensol Liq) 5 mg Q4H PO 05/13/16 10:00 05/18/16 05:38 Haloperidol Lactate (Haldol Inj) 5 mg Q4H PRN IV agitation 05/13/16 09:30 Water (Free Water) 300 ml Q4HR G-TUBE 05/14/16 12:00 05/18/16 06:32 Fluconazole 100 mg 100 mg DAILY PO 05/15/16 09:00 05/18/16 08:59 05/17/16 07:51 Levofloxacin/ Dextrose (Levaquin 750 Mg Premix Inj) 150 ml @ 100 mls/hr Q24H IV 05/15/16 12:00 05/17/16 12:11 Famotidine (Pepcid) 20 mg BID PO 05/14/16 21:00 05/17/16 21:39 Labetalol HCl 400 mg 400 mg Q8HR PO 05/16/16 22:00 05/18/16 05:37 Vancomycin HCl/ Sodium Chloride (Vancomycin Inj/ NS 500 ml Inj) 515 ml @ 250 mls/hr Q12H IV 05/17/16 23:00 05/17/16 23:03 (Bri Merchant) Medical Decision Making MDM Remarks 65 y/o female with cerebellar bleed s/p posterior fossa craniectomy with placement of ventriculoperitoneal shunt coagulopathy with supratherapeutic INR, s/p Vitamin K and KCentra history of antiphospholipid antibody EEG reports no ictal activities Evidence of hydrocephalus following clamping of EVD (Bri Merchant) Plan Plan Remarks CLINICAL BIOCHEMIST shunt tomorrow clamp EVD tonight for surgery hold tube feeds dw , questions answered (Bri Merchant) Attending Statement The exam, history, and the medical decision-making described in the above note were completed with the assistance of the mid-level provider. I reviewed and agree with the findings presented. I attest that I had a [id number] encounter with the patient on the same day, and personally performed and documented my assessment and findings in the medical record. (Oumar Chavez MD) Bri Merchant May 18, 2016 08:57 Oumar Chavez MD May 19, 2016 15:04
[2016-05-18] MEDS: BISACODYL 10 MG SUPP RECTAL SCH (08:58)
[2016-05-18] MEDS: POLYETHYLENE GLYCOL 17 GM PKG PO SCH ×2 (08:58→20:41)
[2016-05-18] MEDS: DOCUSATE SODIUM 50 MG/SENNA 8.6 MG TAB PO SCH ×2 (08:58→20:42)
[2016-05-18] MEDS: ARTIFICIAL TEARS OPTH SOLN 15 ML BTL EACH EYE SCH ×3 (09:00→15:30)
[2016-05-18] MEDS: INSULIN DETEMIR 100 UNITS/ML VIAL SQ SCH ×2 (09:09→20:42)
[2016-05-18] MEDS: FAMOTIDINE 20 MG TAB PO SCH ×2 (09:09→20:40)
--- NOTE | 2016-05-18 09:52 | HHI.CCPN ---
Subjective Remarks/Hospital Course 05/03: 65 years old female was brought in by EMS for stroke alert. Patient has history of multiple strokes in the past. Patient has residual left-sided weakness from the strokes. Patient has an Antiphospholipid syndrome and is on Coumadin. Patient was sitting down watching TV with her then patient started became more unresponsive, having aphasia, nausea vomiting, dizziness, increasing left-sided weakness. EMS was called. Patient was brought to ED stroke alert. CT head revealed large posterior fossa ICH. 05/04: Remains sedated, orally intubated on mechanical ventilation. Underwent suboccipital decompression on 05/03. Ventriculostomy in place. ICPs below 10. Drained 150 cc CSF overnight 05/05: acutely this afternoon, her SBP increased from 150s to 200s. neuro exam unchanged, remains sedated on propofol without sedation vacation today per nsgy. pupillary exam unchanged, 2mm equal, reactive. required labetalol 60mg iv , esmolol 150mcg/kg/min, and cardene 15mg/hr to bring back down to goal SBP 150s. EVD still at 0 per nsgy. ICP in lateral ventricles 1. 05/06: severely hypertensive and febrile. re-cultured overnight. sputum growing GNR. 05/07: Patient remains hypertensive currently on nicardipine and esmolol infusions. Instructions given to titrated up nicardipine, start Norvasc 5 mg daily. Sputum culture with pansensitive Klebsiella. at the bedside updated 05/08: No improvement in neuro status. Continues to spike fever 103.3 MAXIMUM TEMPERATURE. Off nicardipine and esmolol. We'll start scheduled Tylenol and cooling blanket. repeat bruce culture 05/09: Continues to have persistent fever MAXIMUM TEMPERATURE 102, white count remains at 16,000. ID consulted also have ordered a lipase, US liver, venous ultrasound of all extremities. I will also change the central line, and give single dose of vancomycin 05/10: MAXIMUM TEMPERATURE is 102, but currently afebrile. Hemoglobin dropped to 6.8, WBC count 17.1. Sodium 152. Neuro exam remains unchanged. Venous ultrasound negative. Appreciate ID and GI consult. Started on Levophed 4 mcg/ min today 05/11: Tmax 101.4, but fever trending down. WBC 17. Hb 7.2. Transfuse 1U PRBC. Na 150. Off Levophed now, hypertensive. BP Labile. All cultures negative 05/12: Afebrile white count trending down 14,000 today. Restart her on Cardene infusion for hypotension. Plan for OR trach today by Dr. Mcfarlane 05/13: s/p trach yesterday. plan for IR to place G-J tube today. neurosurgery challenging EVD today- raised to 10. weaning sedation. poor neurologic exam persists. 05/14: EVD put out 90cc/24h at 10. no neuro improvements. 05/15: EVD put out 25cc/24h at 15. no neuro changes. Na slowly normalizing. also with significant yeast infection over back of neck. 05/16: EVD clamped at 08:30am. ICP stable. persistently poor neuro exam. Na continues to normalize. will trial CPAP today. 05/17: EVD remains clamped, ICP stable, CT head stable with mild ventricular enlargement. Neuro exam remains unchanged. Tolerated 3 hours C Pap yesterday, attempt 1-2 hours T piece trial yesterday 05/18: No significant events overnight. For REVENUE STAMP CLERK shunt tomorrow. Sodium normalized , will hold free water and restart when Na shows direction. Objective Vital Signs Date Time Temp Pulse Resp B/P Pulse Ox O2 Delivery O2 Flow Rate FiO2 05/18/16 07:34 100 40 05/18/16 06:00 66 05/18/16 04:00 98.4 18 158/73 05/17/16 16:15 T-piece Intake and Output 05/17/16 05/17/16 05/18/16 08:00 16:00 00:00 Intake Total 1198 ml 1978 ml 720 ml Output Total 550 ml 1535 ml 1394 ml Balance 648 ml 443 ml -674 ml Result Diagram: 05/18/16 0536 05/18/16 0536 Imaging Last [address] 05/03/16 0000 Signed Impressions: Service Date/Time: Tuesday, May 03, 2016 01:18 - CONCLUSION: Large acute posterior fossa hemorrhage. There is also blood in the fourth and third ventricles. Report was called to Dr. Rodrigues at 1:30 AM. Haim Anaya MD Chest X-Ray 05/03/16 0000 Signed Impressions: Service Date/Time: Tuesday, May 03, 2016 01:53 - CONCLUSION: 1. Endotracheal tube tip is about 1.5 cm above the luis antonio. 2. Nasogastric tube courses into the stomach. 3. Lungs reasonably clear. Haim Anaya MD Objective Remarks HEENT: Pupils R 3mm L 2 mm, reactive to light. trached. Pallor present, no icterus, tongue/ mucosa moist. Neck: Trach site clean. Chest/Pulm: on mech vent, good air entry bilaterally, no wheezing or crackles CVS: S1-S2 regular, no murmur GI/abdomen: soft, nontender, bowel sounds sluggish Extremities: warm bilaterally, no edema, well perfused. Neuro:Pupils R 3mm L 2 mm, reactive to light. Ventriculostomy in place. Withdraws bilateral lower extremities to pain, upper extremity remains flaccid A/P Problem List: (1) Intracranial hemorrhage ICD Code: I62.9 Status: Acute (2) Respiratory failure with hypoxia ICD Code: J96.91 Status: Acute (3) Hypertension ICD Code: I10 Status: Acute (4) Atrial fibrillation ICD Code: I48.91 Status: Acute (5) Coagulopathy ICD Code: D68.9 Status: Acute (6) Diabetes ICD Code: E11.9 Status: Acute Assessment and Plan Neuro: Intracranial hemorrhagic stroke/large acute posterior fossa hemorrhage with intraventricular extension Acute encephalopathy - s/p posterior decompression on 05/04 - s/p hyperosmolar therapy. - EVD, monitor ICP. Kerryra for seizure prophylaxis. Neurosurgery Dr. Chavez - EVD clamped yesterday, ICP remained stable, CT of the head remained stable except mild ventriculomegaly. EVD removal per Dr. Chavez - Scheduled Tylenol for fever - Haldol prn for agitation - oxycodone and hydromorphone for agitation or tachypnea/ vent synchrony - Trial dose of Provigil on 05/14 without effect. did not continue. Resp: Acute hypoxic and hypercarbic Respiratory failure - Intubated for airway protection, continue mechanical ventilation. - SBT with 1- 2 hour trach trial today - s/p trach 05/[address] Jailene Pinedo `q 6 hour and PRN - T-piece trial today 05/18 CVS Hypertension - Continue labetalol to 200mg po q8h. - Holding amlodipine. - Hydralazine 20mg iv q20min and labetalol 20mg iv q1h for SBP >180 - Metoprolol 5mg iv q4h prn for HR > 100. - SBP goal <150, better controlled today. A.Fib - rate controlled - Lopressor i.v. labetalol PO HEME Coagulopathy - reversed Coumadin with Vit K, FFP and Kcentra on admission. ENDO DM -Levemir 50 units [id number]. High-dose sliding scale insulin. 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 - EGD/colonoscopy 03/15/15- no evidence of upper bleed, colonoscopy revealed active bleeding through out the colon with poor visualization. - S/P bleed scan 03/14/15- positive potentially duodenal. S/P Angiogram of GDA, right colic, ileocolic, and SMA - Rpt. Colonoscopy (03/17/15)---> Colonic polyp, rectal ulcer, indurated area in ascending colon biopsied -continue free water 300mL q4h per tube-reduce to 100ml q6 -serum Na normalizing slowly. - TF at goal. ID Persistent fever/leukocytosis-now fevere has resolved - Leukocytosis noted. bruce cultured-neg to date. Continue vancomycin Azactam and Levaquin, and Diflucan. ID Dr. Kin Adan. Descalate therapy per Dr. Adan - Pansensitive Klebsiella in sputum. patient had witnessed aspiration event in OR per nursing report. DVT/GI prophylaxis - TEDs/SCDs/Pepcid OVERALL IMPRESSION: Remains critically ill. challenging EVD, will require permanent shunt. Likely will require long-term vent wean. still with resolving pancreatitis, encephalopathy, infection. without ongoing full support, would . Problem Qualifiers (1) Respiratory failure with hypoxia: Qualified Code: J96.01 - Acute respiratory failure with hypoxia Dwight Harden MD May 18, 2016 09:52
[2016-05-18] MEDS: hydrALAZINE HCL 20 MG/ML VIAL IV PUSH PRN ×3 (10:22→14:33)
[2016-05-18] MEDS: VANCOMYCIN INJ 1,500 MG in SODIUM CHLORID 0.9% 500 ML INJ 500 ML IV SCH (10:33)
[2016-05-18] MEDS: LEVOFLOXACIN 750 MG PREMIX INJ 150 ML IV SCH (11:53)
[2016-05-18] MEDS: LABETALOL HCL 100 MG/20 ML VIAL IVS PRN (11:54)
[2016-05-18] MEDS: SODIUM CHLORIDE 0.9% FLUSH 5 ML FLUSH IVF PRN (11:54)
--- NOTE | 2016-05-18 13:33 | HHI.IDPN ---
Note Infectious Disease Note Patient on T- piece. Non responsive. No sedation. Ventriculostomy has link colored CSF. Afebrile. Repeat urine culture has annemarie. Diagnosed with cerebellar intracranial hemorrhage. The patient was admitted on 05/03/2016 as a stroke alert. Seen for high spiking fever. PAST MEDICAL HISTORY 1. Hypertension. 2. Atrial fibrillation. 3. Diabetes mellitus. 4. Antiphospholipid syndrome. 5. Cerebrovascular accident. 6. Cholecystectomy. 7. Total hysterectomy. 8. Kidney stones. ALLERGIES LATEX AND ROCEPHIN. MEDICATIONS 1. Levaquin. 2. Fluconazole. OBJECTIVE: Vital Signs Date Time Temp Pulse Resp B/P Pulse Ox O2 Delivery O2 Flow Rate FiO2 05/18/16 10:47 98 T-piece 8.00 40 05/18/16 07:34 100 40 05/18/16 07:30 40 05/18/16 06:00 66 05/18/16 04:02 100 40 05/18/16 04:00 70 05/18/16 04:00 40 05/18/16 04:00 98.4 70 18 158/73 100 05/18/16 02:00 72 05/18/16 00:00 40 05/18/16 00:00 97.9 63 10 160/67 100 05/18/16 00:00 63 05/17/16 22:40 100 40 05/17/16 22:00 70 05/17/16 20:00 97.9 76 14 156/68 100 05/17/16 20:00 76 05/17/16 20:00 40 05/17/16 19:40 100 45 05/17/16 18:00 74 05/17/16 16:15 92 T-piece 45 05/17/16 16:00 72 05/17/16 16:00 98.0 76 14 157/72 95 05/17/16 15:32 94 40 05/17/16 14:25 16 05/17/16 14:00 63 05/17/16 05/17/16 05/18/16 15:00 23:00 07:00 Intake Total 1978 ml 720 ml 1788 ml Output Total 1535 ml 1394 ml 1290 ml Balance 443 ml -674 ml 498 ml IV Total 894 ml 104 ml 752 ml Tube Feeding 484 ml 316 ml 436 ml Other 600 ml 300 ml 600 ml Output Urine Total 1450 ml 1300 ml 1200 ml Drainage Total 85 ml 94 ml 90 ml # Bowel Movements 2 1 1 Laboratory Tests Test 05/17/16 05/18/16 07:50 05:36 White Blood Count 10.8 TH/MM3 8.3 TH/MM3 Red Blood Count 2.90 MIL/MM3 2.88 MIL/MM3 Hemoglobin 8.2 GM/DL 8.3 GM/DL Hematocrit 25.4 % 25.2 % Mean Corpuscular Volume 87.6 FL 87.4 FL Mean Corpuscular Hemoglobin 28.4 PG 28.7 PG Mean Corpuscular Hemoglobin 32.4 % 32.9 % Concent Red Cell Distribution Width 14.2 % 14.4 % Platelet Count 244 TH/MM3 278 TH/MM3 Mean Platelet Volume 11.0 FL 10.3 FL Hematology Comments Laboratory Tests Test 05/17/16 05/18/16 05:04 05:36 Sodium Level 139 MEQ/L 138 MEQ/L Potassium Level 4.4 MEQ/L 3.7 MEQ/L Chloride Level 106 MEQ/L 103 MEQ/L Carbon Dioxide Level 23.6 MEQ/L 25.7 MEQ/L Anion Gap 9 MEQ/L 9 MEQ/L Blood Urea Nitrogen 17 MG/DL 18 MG/DL Creatinine 0.42 MG/DL 0.44 MG/DL Estimat Glomerular Filtration 151 ML/MIN 143 ML/MIN Rate Random Glucose 85 MG/DL 126 MG/DL Calcium Level 8.6 MG/DL 8.7 MG/DL Microbiology Date/Time Procedure Status Source Growth 05/17/16 14:00 Urine Culture - Preliminary Resulted Urine Catheterized Urine Annemarie Albicans PHYSICAL EXAMINATION GENERAL: Unresponsive. HEENT: No icterus. LUNGS: Diminished clear breath sounds. HEART: Regular S1S2. No murmurs. ABDOMEN: Obese. Soft. Decreased bowel sounds. EXTREMITIES: No clubbing or cyanosis. 3+ edema at the UE's. SKIN: No rash. NEUROLOGICAL: Unable to fully assess. PSYCHIATRIC: Unable to fully assess. IMPRESSION 1. Prior persistent fever improved. Possible secondary to pulmonary infection versus sepsis versus central nervous system injury and possibly central fever. 2. Leukocytosis. Secondary to #1. WBC improved. 3. Cerebellar intracranial hemorrhage. Plans for RECYCLABLE MATERIALS COLLECTOR shunt 05/18. 4. Acute respiratory failure. Post trach and PEG. 5. Previous pneumonia due to Klebsiella. 6. Acute kidney disease. Improved. 7. UTI - annemarie. RECOMMENDATIONS 1. Stop Levaquin. 2. Continue Diflucan for annemarie in urine. 3. Monitor temperature and white blood cell count. Sukhi Adan MD May 18, 2016 13:33
[2016-05-18] MEDS: FLUCONAZOLE 100 MG PREMIX BAG 50 ML IV SCH (14:28)
[2016-05-19] VITALS (17 sets, daily range): BP systolic 122–170; BP diastolic 56–80; PULSE 63–80; RESP 11–21; TEMP 96.5–99.7; O2SAT 96–100
[2016-05-19] MEDS: levETIRAcetam INJ 500 MG in SODIUM CHLORIDE 0.9% INJ 100 ML IV SCH ×2 (02:10→12:49)
[2016-05-19] MEDS: CHLORHEXIDINE GLUCONATE 4% SOLN 120 ML BTL TOP SCH ×2 (02:10→20:18)
[2016-05-19] MEDS: oxyCODONE HCL ORAL CONC 20 MG/ML SYRINGE PO SCH ×6 (02:10→21:41)
[2016-05-19] MEDS: CHLORHEXIDINE GLUCONATE 2 % 1 PACK (2 CLOTHS) TOP SCH (02:11)
[2016-05-19] MEDS: RESP: ALBUTEROL 2.5 MG/IPRATROPIUM 0.5 MG NEB (SCH) NEB ×4 (03:46→21:28)
[2016-05-19] MEDS: INSULIN ASPART SUPPLEMENTAL SCALE SQ SCH ×7 (04:00→23:44)
[2016-05-19 07:22] LABS: HEMATOCRIT 26.8 % (35.0-46.0); MEAN CELL VOLUME 87.3 FL (80.0-100.0); MEAN CORPUSCULAR HEMOGLOBIN 28.6 PG (27.0-34.0); MEAN CORPUSCULAR HGB CONC 32.8 % (32.0-36.0); PLATELET COUNT 266 TH/MM3 (150-450); RED BLOOD COUNT 3.07 MIL/MM3 (4.00-5.30); RED CELL DISTRIBUTION WIDTH 14.4 % (11.6-17.2); REVIEW FLAG FINAL; WHITE BLOOD COUNT 8.2 TH/MM3 (4.0-11.0)
[2016-05-19] MEDS ORDERED: VANCOMYCIN HCL 1000 MG VIAL ONE ×2 (07:34→09:13)
[2016-05-19] MEDS ORDERED: GELFOAM SIZE 100 ONE (07:35)
[2016-05-19] MEDS ORDERED: ceFAZolin 2 GM PREMIX 50 ML ONE (07:35)
[2016-05-19] MEDS ORDERED: GENTAMICIN SULFATE 80 MG/2 ML VIAL ONE (07:35)
[2016-05-19] MEDS ORDERED: THROMBIN (TOPICAL) 5,000 UNIT VIAL ONE (07:35)
[2016-05-19] MEDS ORDERED: SODIUM CHLOR 0.9% 250 ML INJ 250 ML ONE (07:36)
[2016-05-19] MEDS ORDERED: BACITRACIN TOP OINT 15 GM TUBE ONE (07:37)
[2016-05-19] MEDS ORDERED: LIDOCAINE 1%/EPINEPHrine 1:100,000 SOLN 30 ML VIAL ONE (07:37)
[2016-05-19 07:40] LABS: BICARBONATE 28.2 MEQ/L (21.0-32.0); POTASSIUM 3.5 MEQ/L (3.5-5.1)
[2016-05-19] MEDS: LABETALOL HCL 200 MG TAB PO SCH ×3 (07:48→21:41)
[2016-05-19] MEDS: INSULIN DETEMIR 100 UNITS/ML VIAL SQ SCH ×2 (09:00→20:18)
[2016-05-19] MEDS: ARTIFICIAL TEARS OPTH SOLN 15 ML BTL EACH EYE SCH ×3 (09:00→18:30)
[2016-05-19] MEDS: LACTULOSE SYRUP 20 GM/30 ML CUP PO SCH ×2 (09:00→19:53)
[2016-05-19] MEDS: BISACODYL 10 MG SUPP RECTAL SCH (09:00)
[2016-05-19] MEDS: FAMOTIDINE 20 MG TAB PO SCH ×2 (09:00→20:18)
[2016-05-19] MEDS: DOCUSATE SODIUM 50 MG/SENNA 8.6 MG TAB PO SCH ×2 (09:00→19:53)
[2016-05-19] MEDS: SODIUM CHLORIDE 0.9% FLUSH 5 ML FLUSH IVF SCH ×2 (09:00→19:53)
[2016-05-19] MEDS: POLYETHYLENE GLYCOL 17 GM PKG PO SCH ×2 (09:00→19:53)
[2016-05-19] MEDS: VANCOMYCIN INJ 1,500 MG in SODIUM CHLORID 0.9% 500 ML INJ 500 ML IV SCH (09:13)
[2016-05-19 10:50] LABS: BLOOD GAS BASE EXCESS -6.3 mmol/L (-2-2); BLOOD GAS CARBOXYHEMOGLOBIN 1.3 % (0-4); BLOOD GAS HCO3 18 mmol/L (22-26); BLOOD GAS METHEMOGLOBIN 0.9 % (0-2); BLOOD GAS PCO2 29 mmHg (38-42); BLOOD GAS PO2 127 mmHg (61-120)
[2016-05-19 10:51] LABS: BLOOD GAS O2 HGB SATURATION 96 % (90-100); BLOOD GAS OXYGEN CONTENT 16.9 Vol % (12.0-20.0); BLOOD GAS TOTAL HGB 12.3 G/DL (12.0-16.0); CRITICAL VALUE NO; FIO2 40 %; OXYGEN DEVICE VENTILATOR; TEMP CORR TO 98.6; VENT SETTINGS PRVC22/600/IT1.0/5PE
[2016-05-19 10:52] LABS: DRAW SITE ART LINE; STAT NO
[2016-05-19] MEDS ORDERED: SODIUM CHLORIDE 0.9% FLUSH 5 ML FLUSH IVF PRN (11:00)
[2016-05-19] MEDS ORDERED: MIDAZOLAM HCL 2 MG/2 ML VIAL ONE (11:08)
[2016-05-19] MEDS ORDERED: fentaNYL CITRATE 250 MCG/5 ML AMP ONE (11:09)
[2016-05-19] MEDS: NS + KCL 20 MEQ INJ 1,000 ML IV SCH ×2 (11:59→19:53)
[2016-05-19] MEDS ORDERED: ONDANSETRON HCL 4 MG/2 ML VIAL IV PUSH ONE (12:00)
[2016-05-19] MEDS ORDERED: PHENYLEPH/NS 1000 MCG/10 ML SYR IV ONE (12:00)
[2016-05-19] MEDS ORDERED: ePHEDrine/NS 25 MG/5 ML SYR IV ONE (12:00)
[2016-05-19] MEDS ORDERED: LACTATED RINGER'S 1000 ML INJ 1,000 ML IV ONE (12:00)
--- NOTE | 2016-05-19 13:12 | HHI.CCPN ---
Subjective Remarks/Hospital Course 05/03: 65 years old female was brought in by EMS for stroke alert. Patient has history of multiple strokes in the past. Patient has residual left-sided weakness from the strokes. Patient has an Antiphospholipid syndrome and is on Coumadin. Patient was sitting down watching TV with her then patient started became more unresponsive, having aphasia, nausea vomiting, dizziness, increasing left-sided weakness. EMS was called. Patient was brought to ED stroke alert. CT head revealed large posterior fossa ICH. 05/04: Remains sedated, orally intubated on mechanical ventilation. Underwent suboccipital decompression on 05/03. Ventriculostomy in place. ICPs below 10. Drained 150 cc CSF overnight 05/05: acutely this afternoon, her SBP increased from 150s to 200s. neuro exam unchanged, remains sedated on propofol without sedation vacation today per nsgy. pupillary exam unchanged, 2mm equal, reactive. required labetalol 60mg iv , esmolol 150mcg/kg/min, and cardene 15mg/hr to bring back down to goal SBP 150s. EVD still at 0 per nsgy. ICP in lateral ventricles 1. 05/06: severely hypertensive and febrile. re-cultured overnight. sputum growing GNR. 05/07: Patient remains hypertensive currently on nicardipine and esmolol infusions. Instructions given to titrated up nicardipine, start Norvasc 5 mg daily. Sputum culture with pansensitive Klebsiella. at the bedside updated 05/08: No improvement in neuro status. Continues to spike fever 103.3 MAXIMUM TEMPERATURE. Off nicardipine and esmolol. We'll start scheduled Tylenol and cooling blanket. repeat bruce culture 05/09: Continues to have persistent fever MAXIMUM TEMPERATURE 102, white count remains at 16,000. ID consulted also have ordered a lipase, US liver, venous ultrasound of all extremities. I will also change the central line, and give single dose of vancomycin 05/10: MAXIMUM TEMPERATURE is 102, but currently afebrile. Hemoglobin dropped to 6.8, WBC count 17.1. Sodium 152. Neuro exam remains unchanged. Venous ultrasound negative. Appreciate ID and GI consult. Started on Levophed 4 mcg/ min today 05/11: Tmax 101.4, but fever trending down. WBC 17. Hb 7.2. Transfuse 1U PRBC. Na 150. Off Levophed now, hypertensive. BP Labile. All cultures negative 05/12: Afebrile white count trending down 14,000 today. Restart her on Cardene infusion for hypotension. Plan for OR trach today by Dr. Mcfarlane 05/13: s/p trach yesterday. plan for IR to place G-J tube today. neurosurgery challenging EVD today- raised to 10. weaning sedation. poor neurologic exam persists. 05/14: EVD put out 90cc/24h at 10. no neuro improvements. 05/15: EVD put out 25cc/24h at 15. no neuro changes. Na slowly normalizing. also with significant yeast infection over back of neck. 05/16: EVD clamped at 08:30am. ICP stable. persistently poor neuro exam. Na continues to normalize. will trial CPAP today. 05/17: EVD remains clamped, ICP stable, CT head stable with mild ventricular enlargement. Neuro exam remains unchanged. Tolerated 3 hours C Pap yesterday, attempt 1-2 hours T piece trial yesterday 05/18: No significant events overnight. For FOUNDATION COORDINATOR shunt tomorrow. Sodium normalized , will hold free water and restart when Na shows direction. 05/19: Back from OR after shunt. Stable hemodynamics, sats 97% Objective Vital Signs Date Time Temp Pulse Resp B/P Pulse Ox O2 Delivery O2 Flow Rate FiO2 05/19/16 11:12 100 40 05/19/16 08:00 76 05/19/16 08:00 98.8 21 170/80 05/18/16 10:47 T-piece 8.00 Intake and Output 05/18/16 05/18/16 05/19/16 08:00 16:00 00:00 Intake Total 1788 ml 1561 ml 477 ml Output Total 1290 ml 2390 ml 600 ml Balance 498 ml -829 ml -123 ml Result Diagram: 05/19/16 0438 05/19/16 0647 Other Results Microbiology Date/Time Procedure Status Source Growth 05/17/16 14:00 Urine Culture - Final Complete Urine Catheterized Urine Annemarie Albicans Imaging Last [address] 05/03/16 0000 Signed Impressions: Service Date/Time: Tuesday, May 03, 2016 01:18 - CONCLUSION: Large acute posterior fossa hemorrhage. There is also blood in the fourth and third ventricles. Report was called to Dr. Rodrigues at 1:30 AM. Haim Anaya MD Chest X-Ray 05/03/16 0000 Signed Impressions: Service Date/Time: Tuesday, May 03, 2016 01:53 - CONCLUSION: 1. Endotracheal tube tip is about 1.5 cm above the luis antonio. 2. Nasogastric tube courses into the stomach. 3. Lungs reasonably clear. Haim Anaya MD Objective Remarks HEENT: Pupils reactive to light, trached. Clean head dressing. Neck: Trach site clean. Dry. Chest/Pulm: on mech vent, good air entry bilaterally, no wheezing or crackles CVS: S1-S2 regular, no murmur GI/abdomen: soft, nontender, bowel sounds sluggish Extremities: warm bilaterally, no edema, well perfused. Neuro:Pupils R 3mm L 2 mm, reactive to light. Withdraws bilateral lower extremities to pain, upper extremity remains flaccid A/P Problem List: (1) Intracranial hemorrhage ICD Code: I62.9 Status: Acute (2) Respiratory failure with hypoxia ICD Code: J96.91 Status: Acute (3) Hypertension ICD Code: I10 Status: Acute (4) Atrial fibrillation ICD Code: I48.91 Status: Acute (5) Coagulopathy ICD Code: D68.9 Status: Acute (6) Diabetes ICD Code: E11.9 Status: Acute Assessment and Plan Neuro: Intracranial hemorrhagic stroke/large acute posterior fossa hemorrhage with intraventricular extension Acute encephalopathy - s/p posterior decompression on 05/04 - s/p hyperosmolar therapy. - EVD, monitor ICP. Keppra for seizure prophylaxis. Neurosurgery Dr. Chavez - EVD clamped yesterday, ICP remained stable, CT of the head remained stable except mild ventriculomegaly. EVD removal per Dr. Chavez - Scheduled Tylenol for fever - Haldol prn for agitation - oxycodone and hydromorphone for agitation or tachypnea/ vent synchrony - Trial dose of Provigil on 05/14 without effect. did not continue. Resp: Acute hypoxic and hypercarbic Respiratory failure - Intubated for airway protection, continue mechanical ventilation. - SBT with 1- 2 hour trach trial today - s/p trach 05/[address] Jailene Pinedo `q 6 hour and PRN - T-piece trial today 05/18 CVS Hypertension - Continue labetalol to 200mg po q8h. - Holding amlodipine. - Hydralazine 20mg iv q20min and labetalol 20mg iv q1h for SBP >180 - Metoprolol 5mg iv q4h prn for HR > 100. - SBP goal <150, better controlled today. A.Fib - rate controlled - Lopressor i.v. labetalol PO HEME Coagulopathy - reversed Coumadin with Vit K, FFP and Kcentra on admission. ENDO DM -Levemir 50 units [id number]. High-dose sliding scale insulin. 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 - EGD/colonoscopy 03/15/15- no evidence of upper bleed, colonoscopy revealed active bleeding through out the colon with poor visualization. - S/P bleed scan 03/14/15- positive potentially duodenal. S/P Angiogram of GDA, right colic, ileocolic, and SMA - Rpt. Colonoscopy (03/17/15)---> Colonic polyp, rectal ulcer, indurated area in ascending colon biopsied -continue free water 300mL q4h per tube-reduce to 100ml q6 -serum Na normalizing slowly. - TF at goal. ID Persistent fever/leukocytosis-now fevere has resolved - Leukocytosis noted. bruce cultured-neg to date. Continue vancomycin Azactam and Levaquin, and Diflucan. ID Dr. Kin Adan. Descalate therapy per Dr. Adan - Pansensitive Klebsiella in sputum. patient had witnessed aspiration event in OR per nursing report. DVT/GI prophylaxis - TEDs/SCDs/Pepcid OVERALL IMPRESSION: Remains ill. Now has permanent shunt. Likely will require long-term vent wean. still with resolving pancreatitis, encephalopathy, infection. Problem Qualifiers (1) Respiratory failure with hypoxia: Qualified Code: J96.01 - Acute respiratory failure with hypoxia Dwight Harden MD May 19, 2016 13:12
[2016-05-19] MEDS: FLUCONAZOLE 100 MG PREMIX BAG 50 ML IV SCH (13:21)
[2016-05-19 13:38] LABS: SUPERNATE COLOR TUBE #1 CLEAR (CLEAR); VOLUME TUBE # 1 3.5 ML
[2016-05-19 13:39] LABS: CSF LYMPHOCYTES 0 %; CSF NEUTROPHILS 0 %; GROSS BLOOD TUBE #1 TRACE (0); WBC TUBE #1 0 /MM3 (0-10)
--- NOTE | 2016-05-19 14:10 | PD.OP ---
Operative Report Date of Surgery: May 19, 2016 Preoperative Diagnosis: Hydrocephalus Postoperative Diagnosis: Hydrocephalus Procedure: 1. Placement of ventriculoperitoneal shunt 2. removal of ventriculostomy catheter Anesthesia: Gen. Surgeon: Oumar Chavez Punching Machine Operator(s): Bree Puckett Operation and Findings: INTRAOPERATIVE FINDINGS:~ Clear cerebrospinal fluid with an opening pressure of 170 mm of water. INDICATIONS FOR PROCEDURE: Ms Spann is a 65 year old female with history of meningiomas who presented with a large cerebellar hematoma and severe mass effect . She underwent a suboccipital craniectomy with evacuation of hematoma and placement of the ventriculostomy . Multiple attempts were made to challenge her ventriculostomy, with neurological changes and follow-up CT of the brain which show significant enlargement of the ventricles with hydrocephalus. The ventriculo peritoneal shunt was indicated The [id number] details of the procedure, its indications, alternatives, risks , and potential complications of the surgery were fully discussed with the patient's and family. They fully understood. All their questions were answered. No guarantees were given. They voiced requesting the surgery and signed informed consent.They were offered the alternative of continuing nonsurgical treatment. DETAILS OF THE SURGICAL PROCEDURE:~ After the induction of general anesthesia, endotracheal intubation was performed. A Batista catheter, bilateral DIDIER hose and sequential compression devices were placed and kept throughout the procedure. The patient was positioned supine on a 30-80 table with the head over a gel doughnut. All pressure points were carefully padded with eggcrate mattress. The left frontotemporal parietal area was shaved prepped and draped in the usual sterile fashion, as well as the neck, chest and abdomen. A small incision was made in the patient's left upper quadrant with a #10 blade and the dissection was carried out through the subcutaneous tissue and Martínez's fascia. The rectus sheath was carefully opened with Metzenbaum scissors and the rectus muscles were split along its fibers. The posterior rectus sheath was elevated and carefully opened. The peritoneum was elevated with mosquitoes and opened in the standard fashion. The peritoneal cavity was visualized and exposed. A pursestring suture was placed around the peritoneal opening. Using a tunneler a subcutaneous tunnel was created connecting the abdominal incision with the planned head incision. A small incision was made in the right frontal area and a self-retaining retractor was placed in the incision. An entry point for the catheter was selected on the left frontal region, 90 mm posterior to the supraorbital rim and 25 mm lateral to the midline. A Midas Bayron was used to create the arash hole. The dura was coagulated with the bipolar in a cruciform fashion. A peritoneal catheter was placed in the subcutaneous tunnel previously created and a pocket was created underneath the galea for placement of the valve. A [employer] programmable valve has calibrated at a pressure of 90 mmHg and flushed according to the emissions inspector's instructions. The valve was secured to the proximal end of the peritoneal catheter using a 2-0 silk. Then, a ventricular catheter was advanced into the ventricular system. A good flow of cerebrospinal fluid was obtained.~ The catheter was connected to the valve and the connection secured with a 2-0 silk. Cerebrospinal fluid was noted to drip through the distal end of the peritoneal catheter. The peritoneal catheter was placed in the peritoneal cavity under direct visualization. The pursestring suture was carefully adjusted with special care not to strangulate the catheter. The rectus sheath was closed using interrupted 2-0 Vicryl suture. The Martínez's fascia was approximated with 3-0 Vicryl, and the subcutaneous with 3-0 Vicryl. The skin was closed with running subcuticular 4-0 Vicryl in the abdomen. The skin incision was closed using interrupted 3-0 Vicryl for the galea and liam to the skin. Then, the suture from the right frontal ventriculostomy workouts and the ventriculostomy catheter was removed. A suture was placed at the site of the catheter exit At the end of the procedure, the sponge, needle and instrument counts were all correct. The estimated blood was less than 30 cc. No blood transfusion was given. No intraoperative complications occurred. The patient received preoperative prophylactic antibiotics. The patient was then transferred to the ICU room in stable condition. Oumar Chavez MD May 19, 2016 14:10
[2016-05-19] MEDS ORDERED: CHLORHEXIDINE GLUCONATE 2 % 1 PACK (2 CLOTHS) TOP PRN (14:15)
[2016-05-19] MEDS ORDERED: MISCELLANEOUS NURSING INFORMATION XX SCH (14:15)
[2016-05-19] MEDS: hydrALAZINE HCL 20 MG/ML VIAL IV PUSH PRN (16:17)
--- NOTE | 2016-05-19 18:50 | HHI.IDPN ---
Note Infectious Disease Note Patient on T- piece. Non responsive. No sedation. Post CERTIFIED REGISTERED NURSE ANESTHETIST shunt. Afebrile. Diagnosed with cerebellar intracranial hemorrhage. The patient was admitted on 05/03/2016 as a stroke alert. Seen for high spiking fever. PAST MEDICAL HISTORY 1. Hypertension. 2. Atrial fibrillation. 3. Diabetes mellitus. 4. Antiphospholipid syndrome. 5. Cerebrovascular accident. 6. Cholecystectomy. 7. Total hysterectomy. 8. Kidney stones. ALLERGIES LATEX AND ROCEPHIN. ANTIBIOTICS Fluconazole. OBJECTIVE: Vital Signs Date Time Temp Pulse Resp B/P Pulse Ox O2 Delivery O2 Flow Rate FiO2 05/19/16 18:00 78 05/19/16 16:00 73 05/19/16 16:00 98.6 73 20 166/73 98 05/19/16 16:00 40 05/19/16 15:27 96 40 05/19/16 14:00 63 05/19/16 12:00 96.5 73 14 157/68 98 05/19/16 12:00 40 05/19/16 12:00 74 05/19/16 11:12 100 40 05/19/16 08:18 100 100 05/19/16 08:00 40 05/19/16 08:00 76 05/19/16 08:00 98.8 80 21 170/80 97 05/19/16 07:42 98 40 05/19/16 06:00 77 05/19/16 04:00 98.8 72 12 154/71 98 05/19/16 04:00 40 05/19/16 04:00 72 05/19/16 03:46 98 40 05/19/16 02:00 65 05/19/16 00:00 40 05/19/16 00:00 65 05/19/16 00:00 98.6 70 11 122/69 100 05/18/16 23:57 99 40 05/18/16 22:00 65 05/18/16 20:00 99.0 80 20 158/73 98 05/18/16 20:00 79 05/18/16 20:00 40 05/18/16 19:48 98 40 05/18/16 05/18/16 05/19/16 15:00 23:00 07:00 Intake Total 1561 ml 477 ml 490 ml Output Total 2390 ml 600 ml 1310 ml Balance -829 ml -123 ml -820 ml IV Total 763 ml 250 ml Tube Feeding 468 ml 327 ml Other 330 ml 150 ml 240 ml Output Urine Total 2325 ml 600 ml 1250 ml Drainage Total 65 ml 60 ml # Bowel Movements 1 1 2 Laboratory Tests Test 05/18/16 05/19/16 05:36 04:38 White Blood Count 8.3 TH/MM3 8.2 TH/MM3 Red Blood Count 2.88 MIL/MM3 3.07 MIL/MM3 Hemoglobin 8.3 GM/DL 8.8 GM/DL Hematocrit 25.2 % 26.8 % Mean Corpuscular Volume 87.4 FL 87.3 FL Mean Corpuscular Hemoglobin 28.7 PG 28.6 PG Mean Corpuscular Hemoglobin 32.9 % 32.8 % Concent Red Cell Distribution Width 14.4 % 14.4 % Platelet Count 278 TH/MM3 266 TH/MM3 Mean Platelet Volume 10.3 FL 10.3 FL Laboratory Tests Test 05/18/16 05/19/16 05:36 06:47 Sodium Level 138 MEQ/L 137 MEQ/L Potassium Level 3.7 MEQ/L 3.5 MEQ/L Chloride Level 103 MEQ/L 101 MEQ/L Carbon Dioxide Level 25.7 MEQ/L 28.2 MEQ/L Anion Gap 9 MEQ/L 8 MEQ/L Blood Urea Nitrogen 18 MG/DL 16 MG/DL Creatinine 0.44 MG/DL 0.37 MG/DL Estimat Glomerular Filtration 143 ML/MIN 175 ML/MIN Rate Random Glucose 126 MG/DL 97 MG/DL Calcium Level 8.7 MG/DL 8.5 MG/DL Microbiology Date/Time Procedure Status Source Growth 05/17/16 14:00 Urine Culture - Final Complete Urine Catheterized Urine Annemarie Albicans 05/19/16 11:51 Gram Stain Received Cerebral Spinal Fluid Shunt Fluid Pending 05/19/16 11:51 CSF Culture Received Cerebral Spinal Fluid Shunt Fluid Pending Microbiology Date/Time Procedure Status Source Growth 05/17/16 14:00 Urine Culture - Preliminary Resulted Urine Catheterized Urine Annemarie Albicans PHYSICAL EXAMINATION GENERAL: Unresponsive. HEENT: No icterus. LUNGS: Diminished clear breath. HEART: Regular S1S2. No murmurs. ABDOMEN: Obese. Soft. Decreased bowel sounds. EXTREMITIES: No clubbing or cyanosis. 3+ edema at the UE's. SKIN: No rash. NEUROLOGICAL: Unable to fully assess. PSYCHIATRIC: Unable to fully assess. IMPRESSION 1. Prior persistent fever improved. Possible secondary to pulmonary infection versus sepsis versus central nervous system injury and possibly central fever. improved. 2. Leukocytosis. Secondary to #1. WBC improved. 3. Cerebellar intracranial hemorrhage. Post CERTIFIED REGISTERED NURSE ANESTHETIST shunt. 4. Acute respiratory failure. Post trach and PEG. 5. Previous pneumonia due to Klebsiella. 6. Acute kidney disease. Improved. 7. UTI - annemarie. RECOMMENDATIONS 1. Continue Diflucan for annemarie in urine. 2. Monitor temperature and white blood cell count. Sukhi Adan MD May 19, 2016 18:50
[2016-05-19] MEDS: CHLORHEXIDINE 0.12% (ORAL KIT) 15 ML CUP MT SCH (19:52)
[2016-05-19] MEDS: VANCOMYCIN INJ 1,000 MG in SODIUM CHLOR 0.9% 250 ML INJ 250 ML IV SCH (20:18)
[2016-05-20] VITALS (18 sets, daily range): BP systolic 134–164; BP diastolic 56–70; PULSE 64–83; RESP 11–23; TEMP 98.5–99.5; O2SAT 95–100
[2016-05-20] MEDS: levETIRAcetam INJ 500 MG in SODIUM CHLORIDE 0.9% INJ 100 ML IV SCH ×2 (00:22→12:25)
[2016-05-20] MEDS: hydrALAZINE HCL 20 MG/ML VIAL IV PUSH PRN ×6 (01:28→18:19)
[2016-05-20] MEDS: oxyCODONE HCL ORAL CONC 20 MG/ML SYRINGE PO SCH ×6 (01:28→22:12)
[2016-05-20] MEDS: LABETALOL HCL 100 MG/20 ML VIAL IVS PRN ×4 (03:08→17:08)
[2016-05-20] MEDS: CHLORHEXIDINE GLUCONATE 2 % 1 PACK (2 CLOTHS) TOP SCH (03:09)
[2016-05-20] MEDS: RESP: ALBUTEROL 2.5 MG/IPRATROPIUM 0.5 MG NEB (SCH) NEB ×2 (03:17→08:41)
[2016-05-20] MEDS: INSULIN ASPART SUPPLEMENTAL SCALE SQ SCH ×5 (04:00→20:00)
[2016-05-20 04:03] LABS: HEMATOCRIT 26.7 % (35.0-46.0); MEAN CELL VOLUME 87.6 FL (80.0-100.0); MEAN CORPUSCULAR HEMOGLOBIN 27.8 PG (27.0-34.0); MEAN CORPUSCULAR HGB CONC 31.7 % (32.0-36.0); PLATELET COUNT 286 TH/MM3 (150-450); RED BLOOD COUNT 3.05 MIL/MM3 (4.00-5.30); RED CELL DISTRIBUTION WIDTH 14.4 % (11.6-17.2); REVIEW FLAG FINAL; WHITE BLOOD COUNT 11.6 TH/MM3 (4.0-11.0)
[2016-05-20 04:37] LABS: POTASSIUM 4.1 MEQ/L (3.5-5.1)
[2016-05-20] MEDS: LABETALOL HCL 200 MG TAB PO SCH ×3 (05:47→22:12)
--- NOTE | 2016-05-20 06:16 | RADRPT ---
EXAM DATE/TIME: 05/20/2016 05:15 [facility] COMPARISON: CT BRAIN W/O CONTRAST, May 17, 2016, 4:17. INDICATIONS : Follow up hemorrhage. RADIATION DOSE: 65.43 CTDIvol (mGy) MEDICAL HISTORY : Cardiovascular disease. Cerebrovascular disease. Hypertension.CVA Diabetes SURGICAL HISTORY : Craniotomy. Appendectomy.Cholecystectomy.Hysterectomy ENCOUNTER: Subsequent ACUITY: 1 week PAIN SCALE: Non-responsive LOCATION: cranial TECHNIQUE: Multiple contiguous axial images were obtained of the head. Using automated exposure control and adj ustment of the mA and/or kV according to patient size, radiation dose was kept as low as reasonably a chievable to obtain optimal diagnostic quality images. FINDINGS: There is no evidence of acute cortical infarction, acute hemorrhage, mass effect or midline shift. Le ft suboccipital craniectomy is present. The previously seen ventriculostomy has been removed and a fr esh ventriculostomy is present entering anteriorly with its tip at the level of the septum pellucidum . Postsurgical changes are present in the posterior fossa. CONCLUSION: 1. Stable postsurgical changes. No acute hemorrhage is seen Michael Mehta MD on May 20, 2016 at 6:12 Board Certified Radiologist. This report was verified electronically.
[2016-05-20] MEDS: NS + KCL 20 MEQ INJ 1,000 ML IV SCH ×2 (06:32→12:25)
[2016-05-20] MEDS: CHLORHEXIDINE 0.12% (ORAL KIT) 15 ML CUP MT SCH ×2 (08:04→20:09)
[2016-05-20] MEDS: INSULIN DETEMIR 100 UNITS/ML VIAL SQ SCH ×2 (08:18→20:22)
[2016-05-20] MEDS: ARTIFICIAL TEARS OPTH SOLN 15 ML BTL EACH EYE SCH ×3 (08:19→16:41)
[2016-05-20] MEDS: LACTULOSE SYRUP 20 GM/30 ML CUP PO SCH ×2 (08:36→20:09)
--- NOTE | 2016-05-20 08:36 | HHI.CCPN ---
Subjective Remarks/Hospital Course 05/03: 65 years old female was brought in by EMS for stroke alert. Patient has history of multiple strokes in the past. Patient has residual left-sided weakness from the strokes. Patient has an Antiphospholipid syndrome and is on Coumadin. Patient was sitting down watching TV with her then patient started became more unresponsive, having aphasia, nausea vomiting, dizziness, increasing left-sided weakness. EMS was called. Patient was brought to ED stroke alert. CT head revealed large posterior fossa ICH. 05/04: Remains sedated, orally intubated on mechanical ventilation. Underwent suboccipital decompression on 05/03. Ventriculostomy in place. ICPs below 10. Drained 150 cc CSF overnight 05/05: acutely this afternoon, her SBP increased from 150s to 200s. neuro exam unchanged, remains sedated on propofol without sedation vacation today per nsgy. pupillary exam unchanged, 2mm equal, reactive. required labetalol 60mg iv , esmolol 150mcg/kg/min, and cardene 15mg/hr to bring back down to goal SBP 150s. EVD still at 0 per nsgy. ICP in lateral ventricles 1. 05/06: severely hypertensive and febrile. re-cultured overnight. sputum growing GNR. 05/07: Patient remains hypertensive currently on nicardipine and esmolol infusions. Instructions given to titrated up nicardipine, start Norvasc 5 mg daily. Sputum culture with pansensitive Klebsiella. at the bedside updated 05/08: No improvement in neuro status. Continues to spike fever 103.3 MAXIMUM TEMPERATURE. Off nicardipine and esmolol. We'll start scheduled Tylenol and cooling blanket. repeat bruce culture 05/09: Continues to have persistent fever MAXIMUM TEMPERATURE 102, white count remains at 16,000. ID consulted also have ordered a lipase, US liver, venous ultrasound of all extremities. I will also change the central line, and give single dose of vancomycin 05/10: MAXIMUM TEMPERATURE is 102, but currently afebrile. Hemoglobin dropped to 6.8, WBC count 17.1. Sodium 152. Neuro exam remains unchanged. Venous ultrasound negative. Appreciate ID and GI consult. Started on Levophed 4 mcg/ min today 05/11: Tmax 101.4, but fever trending down. WBC 17. Hb 7.2. Transfuse 1U PRBC. Na 150. Off Levophed now, hypertensive. BP Labile. All cultures negative 05/12: Afebrile white count trending down 14,000 today. Restart her on Cardene infusion for hypotension. Plan for OR trach today by Dr. Mcfarlane 05/13: s/p trach yesterday. plan for IR to place G-J tube today. neurosurgery challenging EVD today- raised to 10. weaning sedation. poor neurologic exam persists. 05/14: EVD put out 90cc/24h at 10. no neuro improvements. 05/15: EVD put out 25cc/24h at 15. no neuro changes. Na slowly normalizing. also with significant yeast infection over back of neck. 05/16: EVD clamped at 08:30am. ICP stable. persistently poor neuro exam. Na continues to normalize. will trial CPAP today. 05/17: EVD remains clamped, ICP stable, CT head stable with mild ventricular enlargement. Neuro exam remains unchanged. Tolerated 3 hours C Pap yesterday, attempt 1-2 hours T piece trial yesterday 05/18: No significant events overnight. For SPOR[employer] AN[employer]OR shunt tomorrow. Sodium normalized , will hold free water and restart when Na shows direction. 05/19: Back from OR after shunt. Stable hemodynamics, sats 97% 05/20: Shunt looks good on head CT. Ready for transfer to LTAC when OK with Neurosurgery. Objective Vital Signs Date Time Temp Pulse Resp B/P Pulse Ox O2 Delivery O2 Flow Rate FiO2 05/20/16 06:00 71 05/20/16 05:05 99 100 05/20/16 04:00 98.6 18 146/58 05/18/16 10:47 T-piece 8.00 Intake and Output 05/19/16 05/19/16 05/20/16 08:00 16:00 00:00 Intake Total 490 ml 296 ml 1160 ml Output Total 1310 ml 450 ml 550 ml Balance -820 ml -154 ml 610 ml Result Diagram: 05/20/16 0357 05/20/16 0357 Other Results Microbiology Date/Time Procedure Status Source Growth 05/17/16 14:00 Urine Culture - Final Complete Urine Catheterized Urine Annemarie Albicans Imaging Last [address] 05/03/16 0000 Signed Impressions: Service Date/Time: Tuesday, May 03, 2016 01:18 - CONCLUSION: Large acute posterior fossa hemorrhage. There is also blood in the fourth and third ventricles. Report was called to Dr. Rodrigues at 1:30 AM. Haim Anaya MD Chest X-Ray 05/03/16 0000 Signed Impressions: Service Date/Time: Tuesday, May 03, 2016 01:53 - CONCLUSION: 1. Endotracheal tube tip is about 1.5 cm above the luis antonio. 2. Nasogastric tube courses into the stomach. 3. Lungs reasonably clear. Haim Anaya MD Objective Remarks HEENT: Pupils reactive to light. Clean head dressing. Neck: Trach site clean. Dry. Chest/Pulm: on mech vent, good air entry bilaterally, no wheezing or crackles CVS: S1-S2 regular, no murmur, No JVD. GI/abdomen: soft, nontender, bowel sounds sluggish Extremities: warm bilaterally, no edema, well perfused. Neuro:Pupils R 3mm L 2 mm, reactive to light. Withdraws bilateral lower extremities to pain, upper extremity remains flaccid A/P Problem List: (1) Intracranial hemorrhage ICD Code: I62.9 Status: Acute (2) Respiratory failure with hypoxia ICD Code: J96.91 Status: Acute (3) Hypertension ICD Code: I10 Status: Acute (4) Atrial fibrillation ICD Code: I48.91 Status: Acute (5) Coagulopathy ICD Code: D68.9 Status: Acute (6) Diabetes ICD Code: E11.9 Status: Acute Assessment and Plan Neuro: Intracranial hemorrhagic stroke/large acute posterior fossa hemorrhage with intraventricular extension Acute encephalopathy - s/p posterior decompression on 05/04 - s/p hyperosmolar therapy. - EVD, monitor ICP. Fabby for seizure prophylaxis. Neurosurgery Dr. Chavez - EVD clamped yesterday, ICP remained stable, CT of the head remained stable except mild ventriculomegaly. EVD removal per Dr. Chavez - Scheduled Tylenol for fever - Haldol prn for agitation - oxycodone and hydromorphone for agitation or tachypnea/ vent synchrony - Trial dose of Provigil on 05/14 without effect. did not continue. Resp: Acute hypoxic and hypercarbic Respiratory failure - Intubated for airway protection, continue mechanical ventilation. - SBT with 1- 2 hour trach trial today - s/p trach 05/[address] Jailene Pinedo `q 6 hour and PRN - T-piece trial today 05/18 CVS Hypertension - Continue labetalol to 200mg po q8h. - Holding amlodipine. - Hydralazine 20mg iv q20min and labetalol 20mg iv q1h for SBP >180 - Metoprolol 5mg iv q4h prn for HR > 100. - SBP goal <150, better controlled today. A.Fib - rate controlled - Lopressor i.v., labetalol PO HEME Coagulopathy - reversed Coumadin with Vit K, FFP and Kcentra on admission. ENDO DM -Levemir 50 units [id number]. High-dose sliding scale insulin. 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 - EGD/colonoscopy 03/15/15- no evidence of upper bleed, colonoscopy revealed active bleeding through out the colon with poor visualization. - S/P bleed scan 03/14/15- positive potentially duodenal. S/P Angiogram of GDA, right colic, ileocolic, and SMA - Rpt. Colonoscopy (03/17/15)---> Colonic polyp, rectal ulcer, indurated area in ascending colon biopsied -continue free water 300mL q4h per tube-reduce to 100ml q6 -serum Na normalizing slowly. - TF at goal, tolerated. ID Persistent fever/leukocytosis-now fevere has resolved - Leukocytosis noted. bruce cultured-neg to date. Continue vancomycin Azactam and Levaquin, and Diflucan. ID Dr. Kin Adan. Descalate therapy per Dr. Adan - Pansensitive Klebsiella in sputum. patient had witnessed aspiration event in OR per nursing report. DVT/GI prophylaxis - TEDs/SCDs/Pepcid OVERALL IMPRESSION: Now has permanent shunt. Likely will require long-term vent wean. still with resolving pancreatitis, encephalopathy, infection. Improved. Problem Qualifiers (1) Respiratory failure with hypoxia: Qualified Code: J96.01 - Acute respiratory failure with hypoxia Dwight Harden MD May 20, 2016 08:36
[2016-05-20] MEDS: POLYETHYLENE GLYCOL 17 GM PKG PO SCH ×2 (08:37→20:09)
[2016-05-20] MEDS: BISACODYL 10 MG SUPP RECTAL SCH (08:37)
[2016-05-20] MEDS: DOCUSATE SODIUM 50 MG/SENNA 8.6 MG TAB PO SCH ×2 (08:37→20:10)
[2016-05-20] MEDS: SODIUM CHLORIDE 0.9% FLUSH 5 ML FLUSH IVF SCH ×2 (08:38→20:09)
[2016-05-20] MEDS: PANTOPRAZOLE SODIUM 40 MG VIAL IVP SCH (08:39)
[2016-05-20] MEDS: FAMOTIDINE 20 MG TAB PO SCH ×2 (08:40→20:10)
[2016-05-20] MEDS: VANCOMYCIN INJ 1,000 MG in SODIUM CHLOR 0.9% 250 ML INJ 250 ML IV SCH (08:42)
--- NOTE | 2016-05-20 09:06 | HHI.NSPN ---
(Bri Merchant) Note Status Status: Progress Note (Bri Merchant) Status: Progress Note (Oumar Chavez MD) Interval History Interval History This is a 65 year old female brought in by EMS as a stroke alert. She has history of multiple ischemic strokes in the past with residual left-sided weakness from the strokes. Patient has a history of Antiphospholipid syndrome and is on anticoagulated Coumadin. Apparently she was sitting down watching TV with her when she became unresponsive, with aphasia, nausea vomiting, dizziness, and increasing left-sided weakness. She is a known tyoe II diabetic and appears to be uncontrolled in ketoacidosis. EMS was called. She was brought to ED stroke alert. CT head revealed a posterior fossa ICH. She underwent emergen posterior fossa craniectomy with evacuation of cerebellar bleed and placement of ventriculostomy drain on 05/03/16. 05/04: well sedated. Pupils equal. EVD at 0 cm H20, ICPs below 10. 05/05: ICPs remains within normal limits, pupils equal, ventriculostomy draining well. 05/06: hypertensive, BP was up in the 200's systolic yesterday, on cardene. Currently running 150s. ICPs normal, EVD draining well. serum sodium 148. well sedated also for bp control. 05/07: intubated, sedated, pupils equal. EEG no ictal abnormalities. 05/10: EVD draining well, ICPs within normal limits. intubated and sedated on versed, no eye opening still. Fevers better, now with acute on chronic pancreatitis. CSF cultures pending. 05/11: no clinical changes, for trach/PEG today. 05/12: going for tracheostomy, ICPs wnl following raising of EVD to 5 cm yesterday 05/13: s/p tracheostomy placement, still on low dose Versed. positive cough/gag when suctioned, withdraws LE, pupils equal. still no report of eye opening or following commands. 05/17: challenging EVD, clamped over 24 hours,f/u CT Brain completed this am shows increase in ventricle size. No changes in neuro checks. 05/18: for ventriculoperitoenal shunt tomorrow, EVD draining well, ICPs within normal limits. 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 Slightly opens eyes but not following commands. (Bri Merchant) Labs, Micro, & Vital Signs Results Date Time Temp Pulse Resp B/P Pulse Ox O2 Delivery O2 Flow Rate FiO2 05/20/16 08:39 40 05/20/16 08:35 97 40 05/20/16 06:00 71 05/20/16 05:05 99 100 05/20/16 04:01 95 40 05/20/16 04:00 83 05/20/16 04:00 40 05/20/16 04:00 98.6 83 18 146/58 96 05/20/16 02:29 19 05/20/16 02:00 69 05/20/16 00:21 97 40 05/20/16 00:00 64 05/20/16 00:00 40 05/20/16 00:00 98.5 64 16 134/60 96 05/19/16 22:00 65 05/19/16 21:27 96 40 05/19/16 20:00 40 05/19/16 20:00 99.7 73 17 130/56 96 05/19/16 20:00 73 05/19/16 18:00 78 05/19/16 16:00 73 05/19/16 16:00 98.6 73 20 166/73 98 05/19/16 16:00 40 05/19/16 15:27 96 40 05/19/16 14:00 63 05/19/16 12:00 96.5 73 14 157/68 98 05/19/16 12:00 40 05/19/16 12:00 74 05/19/16 11:12 100 40 05/20/16 07:00 Intake Total 2422 ml Output Total 1450 ml Balance 972 ml Constitutional Vital Signs Date Time Temp Pulse Resp B/P Pulse Ox O2 Delivery O2 Flow Rate FiO2 05/20/16 08:39 40 05/20/16 08:35 97 40 05/20/16 06:00 71 05/20/16 05:05 99 100 05/20/16 04:01 95 40 05/20/16 04:00 83 05/20/16 04:00 40 05/20/16 04:00 98.6 83 18 146/58 96 05/20/16 02:29 19 05/20/16 02:00 69 05/20/16 00:21 97 40 05/20/16 00:00 64 05/20/16 00:00 40 05/20/16 00:00 98.5 64 16 134/60 96 05/19/16 22:00 65 05/19/16 21:27 96 40 05/19/16 20:00 40 05/19/16 20:00 99.7 73 17 130/56 96 05/19/16 20:00 73 05/19/16 18:00 78 05/19/16 16:00 73 05/19/16 16:00 98.6 73 20 166/73 98 05/19/16 16:00 40 05/19/16 15:27 96 40 05/19/16 14:00 63 05/19/16 12:00 96.5 73 14 157/68 98 05/19/16 12:00 40 05/19/16 12:00 74 05/19/16 11:12 100 40 05/20/16 07:00 Intake Total 2422 ml Output Total 1450 ml Balance 972 ml (Bri Merchant) Review of Systems/Exam Exam Ms. Spann is trached on CPAP. She mildly opens her eyes. Shunt wound with dry dressing in place. Cranial Nerves: Pupils equal, mild right disconjugate, she briefly looked to the left Motor: no purposeful movements, not following commands, withdraws 2/5 LE to local stimuli Reflexes: Plantars equivocal bilaterally Cerebellar: unable to assess (Bri Merchant) Medications Current Medications Current Medications Medications (Trade) Dose Ordered Sig/Michelle Route PRN Reason Start Time Stop Time Status Last Admin Dose Admin Artificial Tears (Tears Naturale Opth Soln) 1 drop TID EACH EYE 05/03/16 09:00 05/20/16 08:19 Ondansetron HCl (Zofran Inj) 4 mg Q6H PRN IV NAUSEA OR VOMITING 05/03/16 04:30 Miscellaneous Information 1 Q361D XX 05/03/16 04:30 05/03/16 04:30 IV Flush (NS Flush) 2 ml UNSCH PRN IVF FLUSH AFTER USING IV ACCESS 05/03/16 12:30 05/18/16 11:54 IV Flush 2 ml 2 ml BID IVF 05/03/16 21:00 05/20/16 08:38 Levetriacetam/ Sodium Chloride (Keppra Inj/NS Inj) 105 ml @ 400 mls/hr Q12H IV 05/03/16 13:00 05/20/16 00:22 Calcium Gluconate 1 gm 1 gm UNSCH PRN IV SEE LABEL COMMENTS 05/03/16 12:30 Potassium Chloride 100 ml @ 50 mls/hr UNSCH PRN IV POTASSIUM LESS THAN 4 05/03/16 12:30 05/04/16 06:56 Magnesium Sulfate/ Sodium Chloride (Magnesium Sulfate Inj/NS Inj) 108 ml @ 108 mls/hr UNSCH PRN IV MAGNESIUM LESS THAN 2 05/03/16 12:30 Acetaminophen 650 mg 650 mg Q4H PRN PO TEMPERATURE > 101.5 F 05/03/16 12:30 05/08/16 10:38 Potassium Chloride 100 ml @ 50 mls/hr Q2H PRN IV For Potassium 2.8 - 3.2 mEq/L 05/04/16 08:45 Potassium Chloride (KCl 20 Meq Premix Inj) 100 ml @ 50 mls/hr Q2H PRN IV For Potassium 2.8 - 3.2 mEq/L 05/04/16 08:45 Potassium Chloride 40 meq 40 meq UNSCH PRN PO/TUBE For Potassium 3.3 - 3.5 mEq/L 05/04/16 08:45 Potassium Chloride 100 ml @ 25 mls/hr UNSCH PRN IV For Potassium 3.3 - 3.5 mEq/L 05/04/16 08:45 Potassium Chloride 100 ml @ 50 mls/hr Q2H PRN IV For Potassium 3.3 - 3.5 mEq/L 05/04/16 08:45 Magnesium Sulfate/ Sodium Chloride (Magnesium Sulfate Inj/NS Inj) 100 ml @ 50 mls/hr UNSCH PRN IV For Magnesium 0.9 - 1.1 mg/dL 05/04/16 08:45 Magnesium Oxide 800 mg 800 mg UNSCH PRN PO For Magnesium 1.2 - 1.6 mg/dL 05/04/16 08:45 Magnesium Sulfate/ Sodium Chloride (Magnesium Sulfate Inj/NS Inj) 100 ml @ 50 mls/hr UNSCH PRN IV For Magnesium 1.2 - 1.6 mg/dL 05/04/16 08:45 Potassium Phosphate 2000 mg 2,000 mg Q4H PRN PO For Phosphorus < 2.5 mg/dL 05/04/16 08:45 Sodium Phosphate/ Sodium Chloride (Sodium Phosphate Inj/NS 250 ml Inj) 250 ml @ 42 mls/hr UNSCH PRN IV For Phosphorus < 2.5 mg/dL 05/04/16 08:45 Potassium Chloride (KCl 40 Meq/30 ml Liq) 40 meq UNSCH PRN PO/TUBE SEE LABEL COMMENTS 05/04/16 08:45 Potassium Phosphate 2000 mg 2,000 mg UNSCH PRN PO/TUBE SEE LABEL COMMENTS 05/04/16 08:45 Potassium Phosphate/Sodium Chloride (Potassium Phosphate Inj/NS 250 ml Inj) 260 ml @ 42 mls/hr UNSCH PRN IV SEE LABEL COMMENTS 05/04/16 08:45 Insulin Aspart (NovoLOG SUPPLEMENTAL SCALE) 1 Q4HR SQ 05/04/16 12:00 05/18/16 12:29 Dextrose (D50w (Vial) Inj) 25 ml UNSCH PRN IV HYPOGLYCEMIA-SEE COMMENTS 05/04/16 08:45 05/09/16 20:21 Glucagon (Glucagon Inj) 1 mg UNSCH PRN IM/SQ HYPOGLYCEMIA-SEE COMMENTS 05/04/16 08:45 Insulin Detemir (Levemir Inj) 50 units Q12HR SQ 05/06/16 21:00 05/19/16 20:18 Labetalol HCl (Trandate Inj) 20 mg Q1H PRN IVS SBP greater than 160mm Hg 05/06/16 10:00 05/20/16 04:02 Metoprolol Tartrate (Lopressor Inj) 5 mg Q4H PRN IV PUSH HR > 100 05/06/16 11:00 05/14/16 17:51 Bisacodyl (Dulcolax Supp) 10 mg DAILY RECTAL 05/07/16 09:55 05/16/16 08:24 Polyethylene Glycol (Miralax) 17 gm BID PO 05/06/16 09:55 05/16/16 21:01 Lactulose (Lactulose Liq) 30 ml BID PO 05/06/16 11:00 05/16/16 21:00 Senna/Docusate Sodium (Meaghan-Colace) 1 tab BID PO 05/06/16 10:00 05/16/16 21:00 Hydralazine HCl (Apresoline Inj) 10 mg Q30M PRN IV PUSH SYS BP GREATER THAN 150 MMHG 05/06/16 10:00 05/20/16 04:02 Miscellaneous (Pill Splitter) 1 ea UNSCH PRN OTHER SEE LABEL COMMENTS 05/06/16 21:00 Amlodipine Besylate (Norvasc) 10 mg DAILY PO 05/09/16 09:00 Hold Hydromorphone HCl (Dilaudid Pf Inj) 0.5 mg Q4H PRN IV PUSH pain 8-10 or not taking po 05/13/16 09:30 05/16/16 16:08 Oxycodone HCl (Roxicodone Intensol Liq) 5 mg Q4H PO 05/13/16 10:00 05/20/16 05:47 Haloperidol Lactate (Haldol Inj) 5 mg Q4H PRN IV agitation 05/13/16 09:30 Famotidine (Pepcid) 20 mg BID PO 05/14/16 21:00 05/20/16 08:40 Labetalol HCl 400 mg 400 mg Q8HR PO 05/16/16 22:00 05/20/16 05:47 Fluconazole/ Sodium Chloride 50 ml @ 50 mls/hr Q24H IV 05/18/16 14:00 05/19/16 13:21 Potassium Chloride/Sodium Chloride 1,000 ml @ 100 mls/hr Q10H IV 05/19/16 10:59 05/20/16 06:32 Vancomycin HCl/ Sodium Chloride (Vancomycin Inj/ NS 250 ml Inj) 250 ml @ 250 mls/hr Q12H IV 05/19/16 21:00 05/20/16 09:59 05/20/16 08:42 Pantoprazole Sodium (Protonix Inj) 40 mg DAILY IVP 05/20/16 09:00 05/20/16 08:39 Chlorhexidine Gluconate (Peridex 0.12% Liq) 15 ml BID@08,20 MT 05/19/16 20:00 05/20/16 08:04 Miscellaneous Information 1 Q361D XX 05/19/16 14:15 Chlorhexidine Gluconate (Chlorhexidine 2% Cloth) 3 pack Taper DAILY@04 TOP 05/20/16 04:00 05/16/17 03:59 05/20/16 03:09 Chlorhexidine Gluconate (Chlorhexidine 2% Cloth) 3 pack UNSCH PRN TOP HYGIENIC CARE 05/19/16 14:15 (Bri Merchant) Medical Decision Making MDM Remarks 65 y/o female with cerebellar bleed s/p posterior fossa craniectomy hydrocephalus following clamping of EVD, s/p placement of ventriculoperitoneal shunt 05/19/16 (Bri Merchant) Plan Plan Remarks stable neurological exam following [employer]OM[employer]NAGER shunt placement, cont critical care mgt serial neuro checks (Bri Merchant) Attending Statement The exam, history, and the medical decision-making described in the above note were completed with the assistance of the mid-level provider. I reviewed and agree with the findings presented. I attest that I had a [id number] encounter with the patient on the same day, and personally performed and documented my assessment and findings in the medical record. (Oumar Chavez MD) Bri Merchant May 20, 2016 09:06 Oumar Chavez MD May 23, 2016 20:28
[2016-05-20] MEDS: FLUCONAZOLE 100 MG PREMIX BAG 50 ML IV SCH (13:22)
--- NOTE | 2016-05-20 13:29 | HHI.IDPN ---
Note Infectious Disease Note Patient on CPAP. Non responsive. No sedation. Post BLUE[employer]ER shunt. Afebrile. Diagnosed with cerebellar intracranial hemorrhage. The patient was admitted on 05/03/2016 as a stroke alert. Seen for high spiking fever. PAST MEDICAL HISTORY 1. Hypertension. 2. Atrial fibrillation. 3. Diabetes mellitus. 4. Antiphospholipid syndrome. 5. Cerebrovascular accident. 6. Cholecystectomy. 7. Total hysterectomy. 8. Kidney stones. ALLERGIES LATEX AND ROCEPHIN. ANTIBIOTICS Fluconazole. OBJECTIVE: Vital Signs Date Time Temp Pulse Resp B/P Pulse Ox O2 Delivery O2 Flow Rate FiO2 05/20/16 12:44 100 40 05/20/16 08:39 40 05/20/16 08:35 97 40 05/20/16 06:00 71 05/20/16 05:05 99 100 05/20/16 04:01 95 40 05/20/16 04:00 83 05/20/16 04:00 40 05/20/16 04:00 98.6 83 18 146/58 96 05/20/16 02:29 19 05/20/16 02:00 69 05/20/16 00:21 97 40 05/20/16 00:00 64 05/20/16 00:00 40 05/20/16 00:00 98.5 64 16 134/60 96 05/19/16 22:00 65 05/19/16 21:27 96 40 05/19/16 20:00 40 05/19/16 20:00 99.7 73 17 130/56 96 05/19/16 20:00 73 05/19/16 18:00 78 05/19/16 16:00 73 05/19/16 16:00 98.6 73 20 166/73 98 05/19/16 16:00 40 05/19/16 15:27 96 40 05/19/16 14:00 63 Laboratory Tests Test 05/19/16 05/20/16 04:38 03:57 White Blood Count 8.2 TH/MM3 11.6 TH/MM3 Red Blood Count 3.07 MIL/MM3 3.05 MIL/MM3 Hemoglobin 8.8 GM/DL 8.5 GM/DL Hematocrit 26.8 % 26.7 % Mean Corpuscular Volume 87.3 FL 87.6 FL Mean Corpuscular Hemoglobin 28.6 PG 27.8 PG Mean Corpuscular Hemoglobin 32.8 % 31.7 % Concent Red Cell Distribution Width 14.4 % 14.4 % Platelet Count 266 TH/MM3 286 TH/MM3 Mean Platelet Volume 10.3 FL 10.1 FL Laboratory Tests Test 05/19/16 05/20/16 06:47 03:57 Sodium Level 137 MEQ/L 139 MEQ/L Potassium Level 3.5 MEQ/L 4.1 MEQ/L Chloride Level 101 MEQ/L 104 MEQ/L Carbon Dioxide Level 28.2 MEQ/L 27.0 MEQ/L Anion Gap 8 MEQ/L 8 MEQ/L Blood Urea Nitrogen 16 MG/DL 16 MG/DL Creatinine 0.37 MG/DL 0.50 MG/DL Estimat Glomerular Filtration 175 ML/MIN 123 ML/MIN Rate Random Glucose 97 MG/DL 101 MG/DL Calcium Level 8.5 MG/DL 8.6 MG/DL Microbiology Date/Time Procedure Status Source Growth 05/17/16 14:00 Urine Culture - Final Complete Urine Catheterized Urine Annemarie Albicans 05/19/16 11:51 Gram Stain - Final Resulted Cerebral Spinal Fluid Shunt Fluid 05/19/16 11:51 CSF Culture - Preliminary Resulted Cerebral Spinal Fluid Shunt Fluid NO GROWTH IN 24 HOURS. Microbiology Date/Time Procedure Status Source Growth 05/17/16 14:00 Urine Culture - Preliminary Resulted Urine Catheterized Urine Annemarie Albicans PHYSICAL EXAMINATION GENERAL: Unresponsive. HEENT: No icterus. LUNGS: Diminished breath sounds. HEART: Regular S1S2. No murmurs. ABDOMEN: Obese. Soft. Decreased bowel sounds. EXTREMITIES: No clubbing or cyanosis. 3+ edema at the UE's. SKIN: No rash. NEUROLOGICAL: Unable to fully assess. PSYCHIATRIC: Unable to fully assess. IMPRESSION 1. Prior persistent fever improved. Possible secondary to pulmonary infection versus sepsis versus central nervous system injury and possibly central fever. improved. 2. Leukocytosis. 3. Cerebellar intracranial hemorrhage. Post BLUEPRINT MAKER shunt placement. 4. Acute respiratory failure. Post trach and PEG. 5. Previous pneumonia due to Klebsiella. 6. Acute kidney disease. Improved. 7. UTI - annemarie. RECOMMENDATIONS 1. Continue Diflucan for annemarie in urine. 2. Monitor temperature and white blood cell count. Nothing new to add. I will sign off now. Sukhi Adan MD May 20, 2016 13:29
[2016-05-21] VITALS (18 sets, daily range): BP systolic 135–183; BP diastolic 56–71; PULSE 71–87; RESP 18–26; TEMP 98.9–99.4; O2SAT 94–100
[2016-05-21] MEDS: INSULIN ASPART SUPPLEMENTAL SCALE SQ SCH ×6 (00:18→20:00)
[2016-05-21] MEDS: levETIRAcetam INJ 500 MG in SODIUM CHLORIDE 0.9% INJ 100 ML IV SCH ×2 (00:19→11:58)
[2016-05-21] MEDS: hydrALAZINE HCL 20 MG/ML VIAL IV PUSH PRN ×4 (01:25→20:21)
[2016-05-21] MEDS: oxyCODONE HCL ORAL CONC 20 MG/ML SYRINGE PO SCH ×6 (01:25→21:23)
[2016-05-21] MEDS: LABETALOL HCL 100 MG/20 ML VIAL IVS PRN ×5 (01:26→21:32)
[2016-05-21] MEDS: NS + KCL 20 MEQ INJ 1,000 ML IV SCH ×3 (02:09→23:14)
[2016-05-21] MEDS: CHLORHEXIDINE GLUCONATE 2 % 1 PACK (2 CLOTHS) TOP SCH (03:07)
[2016-05-21] MEDS: LABETALOL HCL 200 MG TAB PO SCH ×3 (05:36→21:23)
[2016-05-21 05:42] LABS: HEMATOCRIT 24.5 % (35.0-46.0); MEAN CELL VOLUME 87.8 FL (80.0-100.0); MEAN CORPUSCULAR HEMOGLOBIN 29.4 PG (27.0-34.0); MEAN CORPUSCULAR HGB CONC 33.5 % (32.0-36.0); PLATELET COUNT 264 TH/MM3 (150-450); RED BLOOD COUNT 2.79 MIL/MM3 (4.00-5.30); RED CELL DISTRIBUTION WIDTH 14.8 % (11.6-17.2); REVIEW FLAG FINAL; WHITE BLOOD COUNT 10.1 TH/MM3 (4.0-11.0)
[2016-05-21 06:02] LABS: BICARBONATE 26.3 MEQ/L (21.0-32.0); POTASSIUM 4.2 MEQ/L (3.5-5.1)
[2016-05-21] MEDS: LIDOCAINE 1%/EPINEPHrine 1:100,000 SOLN 20 ML VIAL ONE (08:41)
[2016-05-21] MEDS: CHLORHEXIDINE 0.12% (ORAL KIT) 15 ML CUP MT SCH ×2 (08:44→20:29)
[2016-05-21] MEDS: FAMOTIDINE 20 MG TAB PO SCH ×2 (08:44→21:23)
[2016-05-21] MEDS: POLYETHYLENE GLYCOL 17 GM PKG PO SCH ×2 (08:44→21:23)
[2016-05-21] MEDS: PANTOPRAZOLE SODIUM 40 MG VIAL IVP SCH (08:44)
[2016-05-21] MEDS: SODIUM CHLORIDE 0.9% FLUSH 5 ML FLUSH IVF SCH ×2 (08:44→20:29)
[2016-05-21] MEDS: LACTULOSE SYRUP 20 GM/30 ML CUP PO SCH ×2 (08:44→21:24)
[2016-05-21] MEDS: ARTIFICIAL TEARS OPTH SOLN 15 ML BTL EACH EYE SCH ×3 (08:44→17:16)
[2016-05-21] MEDS: BISACODYL 10 MG SUPP RECTAL SCH (08:45)
[2016-05-21] MEDS: DOCUSATE SODIUM 50 MG/SENNA 8.6 MG TAB PO SCH ×2 (08:45→21:23)
[2016-05-21] MEDS: INSULIN DETEMIR 100 UNITS/ML VIAL SQ SCH ×2 (08:45→21:23)
--- NOTE | 2016-05-21 09:15 | HHI.NSPN ---
(Bri Merchant) Note Status Status: Progress Note (Bri Merchant) Interval History Interval History This is a 65 year old female brought in by EMS as a stroke alert. She has history of multiple ischemic strokes in the past with residual left-sided weakness from the strokes. Patient has a history of Antiphospholipid syndrome and is on anticoagulated Coumadin. Apparently she was sitting down watching TV with her when she became unresponsive, with aphasia, nausea vomiting, dizziness, and increasing left-sided weakness. She is a known tyoe II diabetic and appears to be uncontrolled in ketoacidosis. EMS was called. She was brought to ED stroke alert. CT head revealed a posterior fossa ICH. She underwent emergen posterior fossa craniectomy with evacuation of cerebellar bleed and placement of ventriculostomy drain on 05/03/16. 05/04: well sedated. Pupils equal. EVD at 0 cm H20, ICPs below 10. 05/05: ICPs remains within normal limits, pupils equal, ventriculostomy draining well. 05/06: hypertensive, BP was up in the 200's systolic yesterday, on cardene. Currently running 150s. ICPs normal, EVD draining well. serum sodium 148. well sedated also for bp control. 05/07: intubated, sedated, pupils equal. EEG no ictal abnormalities. 05/10: EVD draining well, ICPs within normal limits. intubated and sedated on versed, no eye opening still. Fevers better, now with acute on chronic pancreatitis. CSF cultures pending. 05/11: no clinical changes, for trach/PEG today. 05/12: going for tracheostomy, ICPs wnl following raising of EVD to 5 cm yesterday 05/13: s/p tracheostomy placement, still on low dose Versed. positive cough/gag when suctioned, withdraws LE, pupils equal. still no report of eye opening or following commands. 05/17: challenging EVD, clamped over 24 hours,f/u CT Brain completed this am shows increase in ventricle size. No changes in neuro checks. 05/18: for ventriculoperitoenal shunt tomorrow, EVD draining well, ICPs within normal limits. 05/20: POD 1 s/p placement of HELP DESK ASSISTANT shunt, on CPAP, not tolerating t-piece. Slightly opens eyes but not following commands. 05/21: POD 2, less responsive today, not opening her eyes even to deep stimuli. (Bri Merchant) Labs, Micro, & Vital Signs Results Date Time Temp Pulse Resp B/P Pulse Ox O2 Delivery O2 Flow Rate FiO2 05/21/16 07:39 30 05/21/16 07:39 98 30 05/21/16 06:36 17 05/21/16 06:00 80 05/21/16 04:00 99.3 80 19 150/67 98 05/21/16 04:00 80 05/21/16 04:00 40 05/21/16 03:46 98 40 05/21/16 02:00 75 05/21/16 00:08 99 40 05/21/16 00:00 40 05/21/16 00:00 71 05/21/16 00:00 99.1 71 18 163/71 99 05/20/16 22:00 66 05/20/16 20:00 99.5 82 23 162/66 98 05/20/16 20:00 40 05/20/16 20:00 83 05/20/16 19:43 98 40 05/20/16 18:00 81 05/20/16 16:00 96 40 05/20/16 16:00 40 05/20/16 16:00 99.0 81 23 164/70 99 05/20/16 16:00 81 05/20/16 14:00 79 05/20/16 12:44 100 40 05/20/16 12:00 83 05/20/16 12:00 99.3 83 11 163/66 97 05/20/16 12:00 40 05/20/16 10:00 81 05/21/16 07:00 Intake Total 3907 ml Output Total 1800 ml Balance 2107 ml Constitutional Vital Signs Date Time Temp Pulse Resp B/P Pulse Ox O2 Delivery O2 Flow Rate FiO2 05/21/16 07:39 30 05/21/16 07:39 98 30 05/21/16 06:36 17 05/21/16 06:00 80 05/21/16 04:00 99.3 80 19 150/67 98 05/21/16 04:00 80 05/21/16 04:00 40 05/21/16 03:46 98 40 05/21/16 02:00 75 05/21/16 00:08 99 40 05/21/16 00:00 40 05/21/16 00:00 71 05/21/16 00:00 99.1 71 18 163/71 99 05/20/16 22:00 66 05/20/16 20:00 99.5 82 23 162/66 98 05/20/16 20:00 40 05/20/16 20:00 83 05/20/16 19:43 98 40 05/20/16 18:00 81 05/20/16 16:00 96 40 05/20/16 16:00 40 05/20/16 16:00 99.0 81 23 164/70 99 05/20/16 16:00 81 05/20/16 14:00 79 05/20/16 12:44 100 40 05/20/16 12:00 83 05/20/16 12:00 99.3 83 11 163/66 97 05/20/16 12:00 40 05/20/16 10:00 81 05/21/16 07:00 Intake Total 3907 ml Output Total 1800 ml Balance 2107 ml (Bri Merchant) Review of Systems/Exam Exam Ms. Spann is trached on CPAP. She is not opening her eyes. Shunt wound with dry dressing in place. Cranial Nerves: Pupils 3 mm equal, conjugate gaze Motor: no purposeful movements, not following commands, no response to local stimuli Reflexes: Plantars equivocal bilaterally Cerebellar: unable to assess due to clinical condition (Bri Merchant) Medications Current Medications Current Medications Medications (Trade) Dose Ordered Sig/Michelle Route PRN Reason Start Time Stop Time Status Last Admin Dose Admin Artificial Tears (Tears Naturale Opth Soln) 1 drop TID EACH EYE 05/03/16 09:00 05/21/16 08:44 Ondansetron HCl (Zofran Inj) 4 mg Q6H PRN IV NAUSEA OR VOMITING 05/03/16 04:30 Miscellaneous Information 1 Q361D XX 05/03/16 04:30 05/03/16 04:30 IV Flush (NS Flush) 2 ml UNSCH PRN IVF FLUSH AFTER USING IV ACCESS 05/03/16 12:30 05/18/16 11:54 IV Flush 2 ml 2 ml BID IVF 05/03/16 21:00 05/21/16 08:44 Levetriacetam/ Sodium Chloride (Keppra Inj/NS Inj) 105 ml @ 400 mls/hr Q12H IV 05/03/16 13:00 05/21/16 00:19 Calcium Gluconate 1 gm 1 gm UNSCH PRN IV SEE LABEL COMMENTS 05/03/16 12:30 Potassium Chloride 100 ml @ 50 mls/hr UNSCH PRN IV POTASSIUM LESS THAN 4 05/03/16 12:30 05/04/16 06:56 Magnesium Sulfate/ Sodium Chloride (Magnesium Sulfate Inj/NS Inj) 108 ml @ 108 mls/hr UNSCH PRN IV MAGNESIUM LESS THAN 2 05/03/16 12:30 Acetaminophen 650 mg 650 mg Q4H PRN PO TEMPERATURE > 101.5 F 05/03/16 12:30 05/08/16 10:38 Potassium Chloride 100 ml @ 50 mls/hr Q2H PRN IV For Potassium 2.8 - 3.2 mEq/L 05/04/16 08:45 Potassium Chloride (KCl 20 Meq Premix Inj) 100 ml @ 50 mls/hr Q2H PRN IV For Potassium 2.8 - 3.2 mEq/L 05/04/16 08:45 Potassium Chloride 40 meq 40 meq UNSCH PRN PO/TUBE For Potassium 3.3 - 3.5 mEq/L 05/04/16 08:45 Potassium Chloride 100 ml @ 25 mls/hr UNSCH PRN IV For Potassium 3.3 - 3.5 mEq/L 05/04/16 08:45 Potassium Chloride 100 ml @ 50 mls/hr Q2H PRN IV For Potassium 3.3 - 3.5 mEq/L 05/04/16 08:45 Magnesium Sulfate/ Sodium Chloride (Magnesium Sulfate Inj/NS Inj) 100 ml @ 50 mls/hr UNSCH PRN IV For Magnesium 0.9 - 1.1 mg/dL 05/04/16 08:45 Magnesium Oxide 800 mg 800 mg UNSCH PRN PO For Magnesium 1.2 - 1.6 mg/dL 05/04/16 08:45 Magnesium Sulfate/ Sodium Chloride (Magnesium Sulfate Inj/NS Inj) 100 ml @ 50 mls/hr UNSCH PRN IV For Magnesium 1.2 - 1.6 mg/dL 05/04/16 08:45 Potassium Phosphate 2000 mg 2,000 mg Q4H PRN PO For Phosphorus < 2.5 mg/dL 05/04/16 08:45 Sodium Phosphate/ Sodium Chloride (Sodium Phosphate Inj/NS 250 ml Inj) 250 ml @ 42 mls/hr UNSCH PRN IV For Phosphorus < 2.5 mg/dL 05/04/16 08:45 Potassium Chloride (KCl 40 Meq/30 ml Liq) 40 meq UNSCH PRN PO/TUBE SEE LABEL COMMENTS 05/04/16 08:45 Potassium Phosphate 2000 mg 2,000 mg UNSCH PRN PO/TUBE SEE LABEL COMMENTS 05/04/16 08:45 Potassium Phosphate/Sodium Chloride (Potassium Phosphate Inj/NS 250 ml Inj) 260 ml @ 42 mls/hr UNSCH PRN IV SEE LABEL COMMENTS 05/04/16 08:45 Insulin Aspart (NovoLOG SUPPLEMENTAL SCALE) 1 Q4HR SQ 05/04/16 12:00 05/21/16 00:18 Dextrose (D50w (Vial) Inj) 25 ml UNSCH PRN IV HYPOGLYCEMIA-SEE COMMENTS 05/04/16 08:45 05/09/16 20:21 Glucagon (Glucagon Inj) 1 mg UNSCH PRN IM/SQ HYPOGLYCEMIA-SEE COMMENTS 05/04/16 08:45 Insulin Detemir (Levemir Inj) 50 units Q12HR SQ 05/06/16 21:00 05/21/16 08:45 Labetalol HCl (Trandate Inj) 20 mg Q1H PRN IVS SBP greater than 160mm Hg 05/06/16 10:00 05/21/16 01:26 Metoprolol Tartrate (Lopressor Inj) 5 mg Q4H PRN IV PUSH HR > 100 05/06/16 11:00 05/14/16 17:51 Bisacodyl (Dulcolax Supp) 10 mg DAILY RECTAL 05/07/16 09:55 05/16/16 08:24 Polyethylene Glycol (Miralax) 17 gm BID PO 05/06/16 09:55 05/21/16 08:44 Lactulose (Lactulose Liq) 30 ml BID PO 05/06/16 11:00 05/21/16 08:44 Senna/Docusate Sodium (Meaghan-Colace) 1 tab BID PO 05/06/16 10:00 05/21/16 08:45 Hydralazine HCl (Apresoline Inj) 10 mg Q30M PRN IV PUSH SYS BP GREATER THAN 150 MMHG 05/06/16 10:00 05/21/16 02:43 Miscellaneous (Pill Splitter) 1 ea UNSCH PRN OTHER SEE LABEL COMMENTS 05/06/16 21:00 Amlodipine Besylate (Norvasc) 10 mg DAILY PO 05/09/16 09:00 Hold Hydromorphone HCl (Dilaudid Pf Inj) 0.5 mg Q4H PRN IV PUSH pain 8-10 or not taking po 05/13/16 09:30 05/16/16 16:08 Oxycodone HCl (Roxicodone Intensol Liq) 5 mg Q4H PO 05/13/16 10:00 05/21/16 05:36 Haloperidol Lactate (Haldol Inj) 5 mg Q4H PRN IV agitation 05/13/16 09:30 Famotidine (Pepcid) 20 mg BID PO 05/14/16 21:00 05/21/16 08:44 Labetalol HCl 400 mg 400 mg Q8HR PO 05/16/16 22:00 05/21/16 05:36 Fluconazole/ Sodium Chloride 50 ml @ 50 mls/hr Q24H IV 05/18/16 14:00 05/20/16 13:22 Potassium Chloride/Sodium Chloride (NS + KCl 20 Meq Inj) 1,000 ml @ 100 mls/hr Q10H IV 05/19/16 10:59 05/21/16 02:09 Pantoprazole Sodium (Protonix Inj) 40 mg DAILY IVP 05/20/16 09:00 05/21/16 08:44 Chlorhexidine Gluconate (Peridex 0.12% Liq) 15 ml BID@08,20 MT 05/19/16 20:00 05/21/16 08:44 Miscellaneous Information 1 Q361D XX 05/19/16 14:15 Chlorhexidine Gluconate (Chlorhexidine 2% Cloth) 3 pack Taper DAILY@04 TOP 05/20/16 04:00 05/16/17 03:59 05/21/16 03:07 Chlorhexidine Gluconate (Chlorhexidine 2% Cloth) 3 pack UNSCH PRN TOP HYGIENIC CARE 05/19/16 14:15 (Bri Merchant) Medical Decision Making MDM Remarks 65 y/o female with cerebellar bleed s/p posterior fossa craniectomy with evacuation of hematoma hydrocephalus following clamping of EVD, s/p placement of ventriculoperitoneal shunt 05/19/16 (Bri Merchant) Plan Plan Remarks less responsive today, obtain f/u CT Head dw family in room Addendum: f/u CT Brain reviewed showed mild acute on chronic left subdural hematoma, will increase shunt setting to 160 mm H20. dw over the phone regarding CT findings and plan, he understands and agrees. Using a [employer] computer, the shunt was reprogrammed as follows: Ultrasound gel was placed over the valve and the transfuser was calibrated at a pressure of 160 mm/H20. The shunt was then reprogrammed and a visual and audible sound confirmed the new settings. The patient tolerated the procedure well without complication. (Bri Merchant) Attending Statement The exam, history, and the medical decision-making described in the above note were completed with the assistance of the mid-level provider. I reviewed and agree with the findings presented. I attest that I had a [id number] encounter with the patient on the same day, and personally performed and documented my assessment and findings in the medical record. (Oumar Chavez MD) Bri Merchant May 21, 2016 09:14 Oumar Chavez MD May 23, 2016 20:34
--- NOTE | 2016-05-21 11:58 | RADRPT ---
EXAM DATE/TIME: 05/21/2016 11:23 [facility] COMPARISON: CT BRAIN W/O CONTRAST, May 05, 2016, 16:49. CT BRAIN W/O CONTRAST, May 20, 2016, 5:15. INDICATIONS : Altered mental status, hyrocephalus. RADIATION DOSE: 47.11 CTDIvol (mGy) MEDICAL HISTORY : Cardiovascular disease. Hypertension. Diabetes mellitus type 2. SURGICAL HISTORY : Tonsillectomy. ENCOUNTER: Initial ACUITY: 1 day PAIN SCALE: 5/10 LOCATION: cranial TECHNIQUE: Multiple contiguous axial images were obtained of the head. Using automated exposure control and adj ustment of the mA and/or kV according to patient size, radiation dose was kept as low as reasonably a chievable to obtain optimal diagnostic quality images. FINDINGS: The exam demonstrates findings consistent with occipital craniotomy. There is encephalomalacic defect in the left cerebellar hemisphere. There is no evidence of hemorrhage within this. The operative bed appears unchanged from previous dated 05/20/16. The ventricles are normal in size and configuration. There is a ventriculostomy in place. There is a small area of encephalomalacia involving the white matter of the centrum semiovale on the right consi stent with old infarct. There is a small area of extra-axial hemorrhage along the anterior aspect of the left frontal lobe. T his is decreased when compared to the previous study. There is a small amount of fluid within the maxillary sinuses bilaterally. The orbits are intact. CONCLUSION: 1. Postsurgical changes in the posterior fossa on the left stable compared to previous. 2. Ventriculostomy in good position. 3. Old infarct involving the white matter of the centrum semiovale on the right. 4. Small area of subdural hemorrhage both acute and chronic along the left frontal lobe resolving as compared to previous. Vitor Pickett MD on May 21, 2016 at 11:51 Board Certified Radiologist. This report was verified electronically.
--- NOTE | 2016-05-21 15:19 | PD.OP ---
Operative Report Date of Surgery: May 21, 2016 Preoperative Diagnosis: Bilateral subdural collections Postoperative Diagnosis: Bilateral subdural collections Procedure: Reprograming of the shunt Surgeon: Oumar Chavez Funeral Greeter(s): SUREKHA Operation and Findings: The patient is a 65 year old female with a history of a cerebellar hemorrhage and hydrocephalus who has developed clinical deterioration. A programming of the shunt was indicated. Using a [employer], the shunt was reprogrammed as follows: Ultrasound gel was placed over the valve and the transfuser was calibrated at a pressure of 130mm/H20. The shunt was then reprogrammed and an audible sound confirmed the new settings. The patient tolerated the procedure well without complication. Oumar Chavez MD May 21, 2016 15:19
--- NOTE | 2016-05-21 15:36 | HHI.CCPN ---
Subjective Remarks/Hospital Course 05/03: 65 years old female was brought in by EMS for stroke alert. Patient has history of multiple strokes in the past. Patient has residual left-sided weakness from the strokes. Patient has an Antiphospholipid syndrome and is on Coumadin. Patient was sitting down watching TV with her then patient started became more unresponsive, having aphasia, nausea vomiting, dizziness, increasing left-sided weakness. EMS was called. Patient was brought to ED stroke alert. CT head revealed large posterior fossa ICH. 05/04: Remains sedated, orally intubated on mechanical ventilation. Underwent suboccipital decompression on 05/03. Ventriculostomy in place. ICPs below 10. Drained 150 cc CSF overnight 05/05: acutely this afternoon, her SBP increased from 150s to 200s. neuro exam unchanged, remains sedated on propofol without sedation vacation today per nsgy. pupillary exam unchanged, 2mm equal, reactive. required labetalol 60mg iv , esmolol 150mcg/kg/min, and cardene 15mg/hr to bring back down to goal SBP 150s. EVD still at 0 per nsgy. ICP in lateral ventricles 1. 05/06: severely hypertensive and febrile. re-cultured overnight. sputum growing GNR. 05/07: Patient remains hypertensive currently on nicardipine and esmolol infusions. Instructions given to titrated up nicardipine, start Norvasc 5 mg daily. Sputum culture with pansensitive Klebsiella. at the bedside updated 05/08: No improvement in neuro status. Continues to spike fever 103.3 MAXIMUM TEMPERATURE. Off nicardipine and esmolol. We'll start scheduled Tylenol and cooling blanket. repeat bruce culture 05/09: Continues to have persistent fever MAXIMUM TEMPERATURE 102, white count remains at 16,000. ID consulted also have ordered a lipase, US liver, venous ultrasound of all extremities. I will also change the central line, and give single dose of vancomycin 05/10: MAXIMUM TEMPERATURE is 102, but currently afebrile. Hemoglobin dropped to 6.8, WBC count 17.1. Sodium 152. Neuro exam remains unchanged. Venous ultrasound negative. Appreciate ID and GI consult. Started on Levophed 4 mcg/ min today 05/11: Tmax 101.4, but fever trending down. WBC 17. Hb 7.2. Transfuse 1U PRBC. Na 150. Off Levophed now, hypertensive. BP Labile. All cultures negative 05/12: Afebrile white count trending down 14,000 today. Restart her on Cardene infusion for hypotension. Plan for OR trach today by Dr. Mcfarlane 05/13: s/p trach yesterday. plan for IR to place G-J tube today. neurosurgery challenging EVD today- raised to 10. weaning sedation. poor neurologic exam persists. 05/14: EVD put out 90cc/24h at 10. no neuro improvements. 05/15: EVD put out 25cc/24h at 15. no neuro changes. Na slowly normalizing. also with significant yeast infection over back of neck. 05/16: EVD clamped at 08:30am. ICP stable. persistently poor neuro exam. Na continues to normalize. will trial CPAP today. 05/17: EVD remains clamped, ICP stable, CT head stable with mild ventricular enlargement. Neuro exam remains unchanged. Tolerated 3 hours C Pap yesterday, attempt 1-2 hours T piece trial yesterday 05/18: No significant events overnight. For STRUCTURAL ENGINEERING TECHNICIAN shunt tomorrow. Sodium normalized , will hold free water and restart when Na shows direction. 05/19: Back from OR after shunt. Stable hemodynamics, sats 97% 05/20: Shunt looks good on head CT. Ready for transfer to LTAC when OK with Neurosurgery. 05/21: Small left frontal SDH. Tolerating PSV. Objective Vital Signs Date Time Temp Pulse Resp B/P Pulse Ox O2 Delivery O2 Flow Rate FiO2 05/21/16 14:00 72 05/21/16 12:00 28 05/21/16 12:00 98.9 22 135/56 98 05/21/16 10:20 T-piece 05/18/16 10:47 8.00 Intake and Output 05/20/16 05/20/16 05/21/16 08:00 16:00 00:00 Intake Total 966 ml 1418 ml 1297 ml Output Total 450 ml 600 ml 700 ml Balance 516 ml 818 ml 597 ml Result Diagram: 05/21/16 0520 05/21/16 0520 Imaging Last [address] 05/03/16 0000 Signed Impressions: Service Date/Time: Tuesday, May 03, 2016 01:18 - CONCLUSION: Large acute posterior fossa hemorrhage. There is also blood in the fourth and third ventricles. Report was called to Dr. Rodrigues at 1:30 AM. Haim Anaya MD Chest X-Ray 05/03/16 0000 Signed Impressions: Service Date/Time: Tuesday, May 03, 2016 01:53 - CONCLUSION: 1. Endotracheal tube tip is about 1.5 cm above the luis antonio. 2. Nasogastric tube courses into the stomach. 3. Lungs reasonably clear. Haim Anaya MD Objective Remarks HEENT: Pupils reactive to light. Clean head dressing. Neck: Trach site clean. Dry. Chest/Pulm: on mech vent, good air entry bilaterally, no wheezing or crackles CVS: S1-S2 regular, no murmur, No JVD. GI/abdomen: soft, nontender, bowel sounds sluggish Extremities: warm bilaterally, no edema, well perfused. Neuro:Pupils reactive to light. Withdraws bilateral lower extremities to pain, upper extremity remains flaccid, breathes spontaneously. A/P Problem List: (1) Intracranial hemorrhage ICD Code: I62.9 Status: Acute (2) Respiratory failure with hypoxia ICD Code: J96.91 Status: Acute (3) Hypertension ICD Code: I10 Status: Acute (4) Atrial fibrillation ICD Code: I48.91 Status: Acute (5) Coagulopathy ICD Code: D68.9 Status: Acute (6) Diabetes ICD Code: E11.9 Status: Acute Assessment and Plan Neuro: Intracranial hemorrhagic stroke/large acute posterior fossa hemorrhage with intraventricular extension Acute encephalopathy - s/p posterior decompression on 05/04 - s/p hyperosmolar therapy. - EVD, monitor ICP. Fabby for seizure prophylaxis. Neurosurgery Dr. Chavez - EVD clamped yesterday, ICP remained stable, CT of the head remained stable except mild ventriculomegaly. EVD removal per Dr. Chavez - Scheduled Tylenol for fever - Haldol prn for agitation - oxycodone and hydromorphone for agitation or tachypnea/ vent synchrony - Trial dose of Provigil on 05/14 without effect. did not continue. Resp: Acute hypoxic and hypercarbic Respiratory failure - Intubated for airway protection, continue mechanical ventilation. - SBT with 1- 2 hour trach trial today - s/p trach 05/[address] Jailene Pinedo `q 6 hour and PRN - T-piece trial today 05/21 [facility]S Hypertension - Continue labetalol to 200mg po q8h. - Holding amlodipine. - Hydralazine 20mg iv q20min and labetalol 20mg iv q1h for SBP >180 - Metoprolol 5mg iv q4h prn for HR > 100. - SBP goal <150, better controlled today. A.Fib - rate controlled - Lopressor i.v., labetalol PO HEME Coagulopathy - reversed Coumadin with Vit K, FFP and Kcentra on admission. ENDO DM -Levemir 50 units [id number]. High-dose sliding scale insulin. 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 - EGD/colonoscopy 03/15/15- no evidence of upper bleed, colonoscopy revealed active bleeding through out the colon with poor visualization. - S/P bleed scan 03/14/15- positive potentially duodenal. S/P Angiogram of GDA, right colic, ileocolic, and SMA - Rpt. Colonoscopy (03/17/15)---> Colonic polyp, rectal ulcer, indurated area in ascending colon biopsied -continue free water 300mL q4h per tube-reduce to 100ml q6 -serum Na normalizing slowly. - TF at goal, tolerated. ID Persistent fever/leukocytosis-now fevere has resolved - Leukocytosis noted. bruce cultured-neg to date. Continue vancomycin Azactam and Levaquin, and Diflucan. ID Dr. Kin Adan. Descalate therapy per Dr. Adan - Pansensitive Klebsiella in sputum. patient had witnessed aspiration event in OR per nursing report. DVT/GI prophylaxis - TEDs/SCDs/Pepcid OVERALL IMPRESSION: Now has permanent shunt. Likely will require long-term vent wean. Still with resolving pancreatitis, encephalopathy, infection. Small left frontal SDH persists. Problem Qualifiers (1) Respiratory failure with hypoxia: Qualified Code: J96.01 - Acute respiratory failure with hypoxia Dwight Harden MD May 21, 2016 15:36
[2016-05-21] MEDS: FLUCONAZOLE 100 MG PREMIX BAG 50 ML IV SCH (17:16)
[2016-05-21] MEDS: HYDROmorphone HCL PF 1 MG/ML VIAL IV PUSH PRN (20:21)
[2016-05-22] VITALS (15 sets, daily range): BP systolic 135–184; BP diastolic 56–74; PULSE 69–82; RESP 18–20; TEMP 98.6–99.5; O2SAT 95–100
[2016-05-22] MEDS: levETIRAcetam INJ 500 MG in SODIUM CHLORIDE 0.9% INJ 100 ML IV SCH ×2 (01:11→12:29)
[2016-05-22] MEDS: oxyCODONE HCL ORAL CONC 20 MG/ML SYRINGE PO SCH ×6 (01:11→21:52)
[2016-05-22] MEDS: LABETALOL HCL 100 MG/20 ML VIAL IVS PRN (01:46)
[2016-05-22] MEDS: INSULIN ASPART SUPPLEMENTAL SCALE SQ SCH ×6 (04:00→20:00)
[2016-05-22] MEDS: CHLORHEXIDINE GLUCONATE 2 % 1 PACK (2 CLOTHS) TOP SCH (04:31)
[2016-05-22 04:33] LABS: AUTOMATED NEUTROPHIL # 8.6 TH/MM3 (1.8-7.7); BASOPHIL # 0.1 TH/MM3 (0-0.2); BASOPHIL % 0.9 % (0.0-2.0); EOSINOPHIL # 0.1 TH/MM3 (0-0.4); EOSINOPHIL % 0.5 % (0.0-4.0); HEMATOCRIT 24.9 % (35.0-46.0); HEMO FLAGS DIFF FINAL; LYMPH % 13.7 % (9.0-44.0); LYMPHOCYTE # 1.5 TH/MM3 (1.0-4.8); MEAN CELL VOLUME 86.5 FL (80.0-100.0); MEAN CORPUSCULAR HEMOGLOBIN 28.2 PG (27.0-34.0); MEAN CORPUSCULAR HGB CONC 32.6 % (32.0-36.0); MONO % 8.6 % (0.0-8.0); NEUT % 76.3 % (16.0-70.0); PLATELET COUNT 271 TH/MM3 (150-450); RED BLOOD COUNT 2.88 MIL/MM3 (4.00-5.30); RED CELL DISTRIBUTION WIDTH 14.6 % (11.6-17.2); WHITE BLOOD COUNT 11.2 TH/MM3 (4.0-11.0)
[2016-05-22 04:46] LABS: APTT (PATIENT) 24.9 SEC (24.3-30.1); PROTHROMBIN TIME - PATIENT 11.3 SEC (9.8-11.6)
[2016-05-22 05:02] LABS: ANION GAP 9 MEQ/L (5-15); AST (GOT) 15 U/L (15-37); BICARBONATE 27.1 MEQ/L (21.0-32.0); BLOOD UREA NITROGEN 15 MG/DL (7-18); CHLORIDE 100 MEQ/L (98-107); GLOMERULAR FILTRATION RATE 118 ML/MIN (>89); POTASSIUM 4.4 MEQ/L (3.5-5.1); SODIUM (NA) 136 MEQ/L (136-145)
[2016-05-22 05:09] LABS: ALKALINE PHOSPHATASE 141 U/L (45-117); ALT (GPT) 28 U/L (10-53); TOTAL BILIRUBIN ADULT 0.2 MG/DL (0.2-1.0)
[2016-05-22] MEDS: LABETALOL HCL 200 MG TAB PO SCH ×3 (05:18→20:31)
[2016-05-22] MEDS: CHLORHEXIDINE 0.12% (ORAL KIT) 15 ML CUP MT SCH ×2 (08:00→20:00)
[2016-05-22] MEDS: NS + KCL 20 MEQ INJ 1,000 ML IV SCH ×3 (08:59→21:51)
[2016-05-22] MEDS: INSULIN DETEMIR 100 UNITS/ML VIAL SQ SCH ×2 (09:00→20:31)
[2016-05-22] MEDS: BISACODYL 10 MG SUPP RECTAL SCH (09:00)
[2016-05-22] MEDS: DOCUSATE SODIUM 50 MG/SENNA 8.6 MG TAB PO SCH ×2 (09:00→20:33)
[2016-05-22] MEDS: LACTULOSE SYRUP 20 GM/30 ML CUP PO SCH ×2 (09:00→20:32)
[2016-05-22] MEDS: ARTIFICIAL TEARS OPTH SOLN 15 ML BTL EACH EYE SCH ×3 (09:00→17:46)
[2016-05-22] MEDS: POLYETHYLENE GLYCOL 17 GM PKG PO SCH ×2 (09:00→20:32)
--- NOTE | 2016-05-22 09:35 | HHI.NSPN ---
History Chief Complaint: intubated Interval History This is a 65 year old female brought in by EMS as a stroke alert. She has history of multiple ischemic strokes in the past with residual left-sided weakness from the strokes. Patient has a history of Antiphospholipid syndrome and is on anticoagulated Coumadin. Apparently she was sitting down watching TV with her when she became unresponsive, with aphasia, nausea vomiting, dizziness, and increasing left-sided weakness. She is a known tyoe II diabetic and appears to be uncontrolled in ketoacidosis. EMS was called. She was brought to ED stroke alert. CT head revealed a posterior fossa ICH. She underwent emergen posterior fossa craniectomy with evacuation of cerebellar bleed and placement of ventriculostomy drain on 05/03/16. 05/04: well sedated. Pupils equal. EVD at 0 cm H20, ICPs below 10. 05/05: ICPs remains within normal limits, pupils equal, ventriculostomy draining well. 05/06: hypertensive, BP was up in the 200's systolic yesterday, on cardene. Currently running 150s. ICPs normal, EVD draining well. serum sodium 148. well sedated also for bp control. 05/07: intubated, sedated, pupils equal. EEG no ictal abnormalities. 05/10: EVD draining well, ICPs within normal limits. intubated and sedated on versed, no eye opening still. Fevers better, now with acute on chronic pancreatitis. CSF cultures pending. 05/11: no clinical changes, for trach/PEG today. 05/12: going for tracheostomy, ICPs wnl following raising of EVD to 5 cm yesterday 05/13: s/p tracheostomy placement, still on low dose Versed. positive cough/gag when suctioned, withdraws LE, pupils equal. still no report of eye opening or following commands. 05/17: challenging EVD, clamped over 24 hours,f/u CT Brain completed this am shows increase in ventricle size. No changes in neuro checks. 05/18: for ventriculoperitoenal shunt tomorrow, EVD draining well, ICPs within normal limits. 05/20: POD 1 s/p placement of J[employer] DEVELOPER shunt, on CPAP, not tolerating t-piece. Slightly opens eyes but not following commands. 05/21: POD 2, less responsive today, not opening her eyes even to deep stimuli. 05/22: Pt opens eyes slightly to pain. Not following commands. Pt on CPAP via trach. No sedation. Pupils 3mm bilaterally reactive bilaterally. System Review Comments Not able to obtain given clinical condition. Exam Results Vital Signs Date Time Temp Pulse Resp B/P Pulse Ox O2 Delivery O2 Flow Rate FiO2 05/22/16 09:20 96 T-piece 28 05/22/16 04:00 99.4 79 18 153/59 05/21/16 19:58 4.00 Intake and Output 05/21/16 05/21/16 05/22/16 08:00 16:00 00:00 Intake Total 1192 ml 2484 ml Output Total 500 ml 3150 ml Balance 692 ml -666 ml Physical Examination Resp: CTA bilaterally. Trach in place on CPAP Heart: NSR no murmurs. Abd: Soft postiive bs Skin: No cyanosis or erythema Muscle: Not following for muscle testing. Neuro: Pt off sedation. Not following commands. Opens eyes slightly to pain. Pupils 3mm bilaterally reactive bilaterally. Lab, Micro, Other Results Laboratory Tests Test 05/22/16 04:15 White Blood Count 11.2 TH/MM3 Red Blood Count 2.88 MIL/MM3 Hemoglobin 8.1 GM/DL Hematocrit 24.9 % Mean Corpuscular Volume 86.5 FL Mean Corpuscular Hemoglobin 28.2 PG Mean Corpuscular Hemoglobin 32.6 % Concent Red Cell Distribution Width 14.6 % Platelet Count 271 TH/MM3 Mean Platelet Volume 10.4 FL Neutrophils (%) (Auto) 76.3 % Lymphocytes (%) (Auto) 13.7 % Monocytes (%) (Auto) 8.6 % Eosinophils (%) (Auto) 0.5 % Basophils (%) (Auto) 0.9 % Neutrophils # (Auto) 8.6 TH/MM3 Lymphocytes # (Auto) 1.5 TH/MM3 Monocytes # (Auto) 1.0 TH/MM3 Eosinophils # (Auto) 0.1 TH/MM3 Basophils # (Auto) 0.1 TH/MM3 CBC Comment DIFF FINAL Differential Comment Prothrombin Time 11.3 SEC Prothromb Time International 1.0 RATIO Ratio Activated Partial 24.9 SEC Thromboplast Time Sodium Level 136 MEQ/L Potassium Level 4.4 MEQ/L Chloride Level 100 MEQ/L Carbon Dioxide Level 27.1 MEQ/L Anion Gap 9 MEQ/L Blood Urea Nitrogen 15 MG/DL Creatinine 0.52 MG/DL Estimat Glomerular Filtration 118 ML/MIN Rate Random Glucose 117 MG/DL Calcium Level 8.3 MG/DL Total Bilirubin 0.2 MG/DL Aspartate Amino Transf 15 U/L (AST/SGOT) Alanine Aminotransferase 28 U/L (ALT/SGPT) Alkaline Phosphatase 141 U/L Total Protein 5.6 GM/DL Albumin 2.0 GM/DL Lipase 179 U/L 05/21/16 05/21/16 05/22/16 15:00 23:00 07:00 Intake Total 2484 ml 1099 ml Output Total 3150 ml 850 ml Balance -666 ml 249 ml IV Total 1350 ml 694 ml Tube Feeding 954 ml 345 ml Other 180 ml 60 ml Output Urine Total 3150 ml 850 ml # Bowel Movements 0 0 Medical Decision Making Impression and Plan A: 65 y/o FM s/p J[employer] DEVELOPER shunt for hydrocephalus. Posterior fossa craniotomy for cerebellar bleed. P: Continue to monitor neuro exam. Continue with current care. Santana Lassiter May 22, 2016 09:35
[2016-05-22] MEDS: PANTOPRAZOLE SODIUM 40 MG VIAL IVP SCH (09:53)
[2016-05-22] MEDS: SODIUM CHLORIDE 0.9% FLUSH 5 ML FLUSH IVF SCH ×2 (09:54→20:32)
[2016-05-22] MEDS: FAMOTIDINE 20 MG TAB PO SCH ×2 (09:54→20:32)
--- NOTE | 2016-05-22 11:58 | HHI.CCPN ---
Subjective Remarks/Hospital Course 05/03: 65 years old female was brought in by EMS for stroke alert. Patient has history of multiple strokes in the past. Patient has residual left-sided weakness from the strokes. Patient has an Antiphospholipid syndrome and is on Coumadin. Patient was sitting down watching TV with her then patient started became more unresponsive, having aphasia, nausea vomiting, dizziness, increasing left-sided weakness. EMS was called. Patient was brought to ED stroke alert. CT head revealed large posterior fossa ICH. 05/04: Remains sedated, orally intubated on mechanical ventilation. Underwent suboccipital decompression on 05/03. Ventriculostomy in place. ICPs below 10. Drained 150 cc CSF overnight 05/05: acutely this afternoon, her SBP increased from 150s to 200s. neuro exam unchanged, remains sedated on propofol without sedation vacation today per nsgy. pupillary exam unchanged, 2mm equal, reactive. required labetalol 60mg iv , esmolol 150mcg/kg/min, and cardene 15mg/hr to bring back down to goal SBP 150s. EVD still at 0 per nsgy. ICP in lateral ventricles 1. 05/06: severely hypertensive and febrile. re-cultured overnight. sputum growing GNR. 05/07: Patient remains hypertensive currently on nicardipine and esmolol infusions. Instructions given to titrated up nicardipine, start Norvasc 5 mg daily. Sputum culture with pansensitive Klebsiella. at the bedside updated 05/08: No improvement in neuro status. Continues to spike fever 103.3 MAXIMUM TEMPERATURE. Off nicardipine and esmolol. We'll start scheduled Tylenol and cooling blanket. repeat bruce culture 05/09: Continues to have persistent fever MAXIMUM TEMPERATURE 102, white count remains at 16,000. ID consulted also have ordered a lipase, US liver, venous ultrasound of all extremities. I will also change the central line, and give single dose of vancomycin 05/10: MAXIMUM TEMPERATURE is 102, but currently afebrile. Hemoglobin dropped to 6.8, WBC count 17.1. Sodium 152. Neuro exam remains unchanged. Venous ultrasound negative. Appreciate ID and GI consult. Started on Levophed 4 mcg/ min today 05/11: Tmax 101.4, but fever trending down. WBC 17. Hb 7.2. Transfuse 1U PRBC. Na 150. Off Levophed now, hypertensive. BP Labile. All cultures negative 05/12: Afebrile white count trending down 14,000 today. Restart her on Cardene infusion for hypotension. Plan for OR trach today by Dr. Mcfarlane 05/13: s/p trach yesterday. plan for IR to place G-J tube today. neurosurgery challenging EVD today- raised to 10. weaning sedation. poor neurologic exam persists. 05/14: EVD put out 90cc/24h at 10. no neuro improvements. 05/15: EVD put out 25cc/24h at 15. no neuro changes. Na slowly normalizing. also with significant yeast infection over back of neck. 05/16: EVD clamped at 08:30am. ICP stable. persistently poor neuro exam. Na continues to normalize. will trial CPAP today. 05/17: EVD remains clamped, ICP stable, CT head stable with mild ventricular enlargement. Neuro exam remains unchanged. Tolerated 3 hours C Pap yesterday, attempt 1-2 hours T piece trial yesterday 05/18: No significant events overnight. For HOST COORDINATOR shunt tomorrow. Sodium normalized , will hold free water and restart when Na shows direction. 05/19: Back from OR after shunt. Stable hemodynamics, sats 97% 05/20: Shunt looks good on head CT. Ready for transfer to LT[facility] when OK with Neurosurgery. 05/21: Small left frontal SDH. Tolerating PSV. 05/22: Tolerating flow by / T-piece. Episodic hypertensive urgency. Objective Vital Signs Date Time Temp Pulse Resp B/P Pulse Ox O2 Delivery O2 Flow Rate FiO2 05/22/16 09:20 96 T-piece 28 05/22/16 08:00 72 05/22/16 04:00 99.4 18 153/59 05/21/16 19:58 4.00 Intake and Output 05/21/16 05/21/16 05/22/16 08:00 16:00 00:00 Intake Total 1192 ml 2484 ml Output Total 500 ml 3150 ml Balance 692 ml -666 ml Result Diagram: 05/22/16 0415 05/22/16 0415 Imaging Last [address] 05/03/16 0000 Signed Impressions: Service Date/Time: Tuesday, May 03, 2016 01:18 - CONCLUSION: Large acute posterior fossa hemorrhage. There is also blood in the fourth and third ventricles. Report was called to Dr. Rodrigues at 1:30 AM. Haim Anaya MD Chest X-Ray 05/03/16 0000 Signed Impressions: Service Date/Time: Tuesday, May 03, 2016 01:53 - CONCLUSION: 1. Endotracheal tube tip is about 1.5 cm above the luis antonio. 2. Nasogastric tube courses into the stomach. 3. Lungs reasonably clear. Haim Anaya MD Objective Remarks HEENT: Pupils reactive to light. Clean head dressing. Neck: Trach site clean. Dry. Chest/Pulm: on mech vent, good air entry bilaterally, no wheezing or crackles, improved inspiratory effort. CVS: S1-S2 regular, no murmur, No JVD. GI/abdomen: soft, nontender, bowel sounds present. Extremities: warm bilaterally, no edema, well perfused. Neuro:Pupils reactive to light. Withdraws bilateral lower extremities to pain, upper extremity remains flaccid, breathes spontaneously, does not track.. A/P Problem List: (1) Intracranial hemorrhage ICD Code: I62.9 Status: Acute (2) Respiratory failure with hypoxia ICD Code: J96.91 Status: Acute (3) Hypertension ICD Code: I10 Status: Acute (4) Atrial fibrillation ICD Code: I48.91 Status: Acute (5) Coagulopathy ICD Code: D68.9 Status: Acute (6) Diabetes ICD Code: E11.9 Status: Acute Assessment and Plan Neuro: Intracranial hemorrhagic stroke/large acute posterior fossa hemorrhage with intraventricular extension Acute encephalopathy - s/p posterior decompression on 05/04 - s/p hyperosmolar therapy. - EVD, monitor ICP. Kejuan carlosra for seizure prophylaxis. Neurosurgery Dr. Chavez - EVD clamped yesterday, ICP remained stable, CT of the head remained stable except mild ventriculomegaly. EVD removal per Dr. Chavez - Scheduled Tylenol for fever - Haldol prn for agitation - oxycodone and hydromorphone for agitation or tachypnea/ vent synchrony - Trial dose of Provigil on 05/14 without effect. did not continue. Resp: Acute hypoxic and hypercarbic Respiratory failure - Intubated for airway protection, continue mechanical ventilation. - SBT with 1- 2 hour trach trial today - s/p trach 05/[address] J. - DuoNeb `q 6 hour and PRN - T-piece trial today 05/21, CVS Hypertension - Continue labetalol to 200mg po q8h. - Holding amlodipine. - Hydralazine 20mg iv q20min and labetalol 20mg iv q1h for SBP >180 - Metoprolol 5mg iv q4h prn for HR > 100. - SBP goal <150, better controlled today. A.Fib - rate controlled - Add lisinopril, taper labetalol, add lopressor HEME Coagulopathy - reversed Coumadin with Vit K, FFP and Kcentra on admission. ENDO DM -Levemir 50 units [id number]. High-dose sliding scale insulin. 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 - EGD/colonoscopy 03/15/15- no evidence of upper bleed, colonoscopy revealed active bleeding through out the colon with poor visualization. - S/P bleed scan 03/14/15- positive potentially duodenal. S/P Angiogram of GDA, right colic, ileocolic, and SMA - Rpt. Colonoscopy (03/17/15)---> Colonic polyp, rectal ulcer, indurated area in ascending colon biopsied -continue free water 300mL q4h per tube-reduce to 100ml q6 -serum Na normalizing slowly. - TF at goal, tolerated. -Lipase level acceptable 05/22 ID Persistent fever/leukocytosis-now fevere has resolved - Leukocytosis noted. bruce cultured-neg to date. Continue vancomycin Azactam and Levaquin, and Diflucan. ID Dr. Kin Adan. Descalate therapy per Dr. Adan - Pansensitive Klebsiella in sputum. patient had witnessed aspiration event in OR per nursing report. DVT/GI prophylaxis - TEDs/SCDs/Pepcid OVERALL IMPRESSION: Now has permanent shunt. No neuro improvement. Stronger respiratory effort. Small left frontal SDH persists. 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
[2016-05-22] MEDS: METOPROLOL TARTRATE 5 MG/5 ML VIAL IV PUSH PRN (12:28)
[2016-05-22] MEDS: METOPROLOL TARTRATE 25 MG TAB PO SCH ×2 (12:50→20:35)
[2016-05-22] MEDS: LISINOPRIL 10 MG TAB PO SCH ×2 (12:51→20:32)
[2016-05-22] MEDS: FLUCONAZOLE 100 MG PREMIX BAG 50 ML IV SCH (14:00)
[2016-05-22] MEDS ORDERED: LABETALOL HCL 200 MG TAB PO SCH ×2 (14:00)
[2016-05-22] MEDS: hydrALAZINE HCL 20 MG/ML VIAL IV PUSH PRN (19:02)
[2016-05-23] VITALS (15 sets, daily range): BP systolic 143–176; BP diastolic 56–78; PULSE 66–87; RESP 15–24; TEMP 98.1–100.1; O2SAT 96–98
[2016-05-23] MEDS: levETIRAcetam INJ 500 MG in SODIUM CHLORIDE 0.9% INJ 100 ML IV SCH ×3 (01:09→23:53)
[2016-05-23] MEDS: LABETALOL HCL 100 MG/20 ML VIAL IVS PRN ×4 (01:18→16:58)
[2016-05-23] MEDS: oxyCODONE HCL ORAL CONC 20 MG/ML SYRINGE PO SCH ×6 (02:14→22:21)
[2016-05-23] MEDS: DEXTROSE 50% IN WATER 50 ML VIAL(D50) IV PRN (04:15)
[2016-05-23] MEDS: LABETALOL HCL 200 MG TAB PO SCH ×3 (06:21→20:07)
--- NOTE | 2016-05-23 07:50 | HHI.NSPN ---
History Chief Complaint: s/p [employer]ODU[employer] MAKER shunt. Crani for cerebellar bleed. Interval History This is a 65 year old female brought in by EMS as a stroke alert. She has history of multiple ischemic strokes in the past with residual left-sided weakness from the strokes. Patient has a history of Antiphospholipid syndrome and is on anticoagulated Coumadin. Apparently she was sitting down watching TV with her when she became unresponsive, with aphasia, nausea vomiting, dizziness, and increasing left-sided weakness. She is a known tyoe II diabetic and appears to be uncontrolled in ketoacidosis. EMS was called. She was brought to ED stroke alert. CT head revealed a posterior fossa ICH. She underwent emergen posterior fossa craniectomy with evacuation of cerebellar bleed and placement of ventriculostomy drain on 05/03/16. 05/04: well sedated. Pupils equal. EVD at 0 cm H20, ICPs below 10. 05/05: ICPs remains within normal limits, pupils equal, ventriculostomy draining well. 05/06: hypertensive, BP was up in the 200's systolic yesterday, on cardene. Currently running 150s. ICPs normal, EVD draining well. serum sodium 148. well sedated also for bp control. 05/07: intubated, sedated, pupils equal. EEG no ictal abnormalities. 05/10: EVD draining well, ICPs within normal limits. intubated and sedated on versed, no eye opening still. Fevers better, now with acute on chronic pancreatitis. CSF cultures pending. 05/11: no clinical changes, for trach/PEG today. 05/12: going for tracheostomy, ICPs wnl following raising of EVD to 5 cm yesterday 05/13: s/p tracheostomy placement, still on low dose Versed. positive cough/gag when suctioned, withdraws LE, pupils equal. still no report of eye opening or following commands. 05/17: challenging EVD, clamped over 24 hours,f/u CT Brain completed this am shows increase in ventricle size. No changes in neuro checks. 05/18: for ventriculoperitoenal shunt tomorrow, EVD draining well, ICPs within normal limits. 05/20: POD 1 s/p placement of DA[employer]ODU[employer] MAKER shunt, on CPAP, not tolerating t-piece. Slightly opens eyes but not following commands. 05/21: POD 2, less responsive today, not opening her eyes even to deep stimuli. 05/22: Pt opens eyes slightly to pain. Not following commands. Pt on CPAP via trach. No sedation. Pupils 3mm bilaterally reactive bilaterally. 05/23/16: Pt opens eyes to pain slightly. Not following commands. Trach in place on CPAP. Pupils 2mm bilaterally, NR bilaterally. System Review Comments Not able to obtain given level of alertness. Exam Results Vital Signs Date Time Temp Pulse Resp B/P Pulse Ox O2 Delivery O2 Flow Rate FiO2 05/23/16 06:00 76 05/23/16 04:00 100.1 21 170/62 96 05/23/16 04:00 30 05/22/16 20:27 T-piece 5.00 Intake and Output 05/22/16 05/22/16 05/23/16 08:00 16:00 00:00 Intake Total 1099 ml 1439 ml 873 ml Output Total 850 ml 1650 ml 2750 ml Balance 249 ml -211 ml -1877 ml Physical Examination Resp: CTA bilaterally. Trach in place on CPAP Heart: NSR no murmurs. Abd: Soft positive bs Skin: No cyanosis or erythema. Incisions clean and dry. Muscle: Not following for muscle testing. Neuro: Pt off sedation. Not following commands. Opens eyes slightly to pain. Pupils 2mm bilaterally NR bilaterally. Lab, Micro, Other Results 05/22/16 05/22/16 05/23/16 15:00 23:00 07:00 Intake Total 2312 ml 1305 ml Output Total 4400 ml 2450 ml Balance -2088 ml -1145 ml Intake Oral 0 ml IV Total 1373 ml 777 ml Tube Feeding 789 ml 428 ml Other 150 ml 100 ml Output Urine Total 4400 ml 2450 ml # Bowel Movements 3 2 Medical Decision Making Impression and Plan A: 65 y/o FM s/p [employer] MAKER shunt for hydrocephalus. Posterior fossa craniotomy for cerebellar bleed. P: Continue to monitor neuro exam. Continue with current care. Santana Lassiter May 23, 2016 07:50
[2016-05-23] MEDS: INSULIN ASPART SUPPLEMENTAL SCALE SQ SCH ×6 (08:00→23:49)
[2016-05-23] MEDS: BISACODYL 10 MG SUPP RECTAL SCH (09:00)
[2016-05-23] MEDS: ARTIFICIAL TEARS OPTH SOLN 15 ML BTL EACH EYE SCH ×3 (09:00→18:00)
[2016-05-23] MEDS: POLYETHYLENE GLYCOL 17 GM PKG PO SCH ×2 (09:00→19:41)
[2016-05-23] MEDS: LACTULOSE SYRUP 20 GM/30 ML CUP PO SCH ×2 (09:00→19:41)
[2016-05-23] MEDS: DOCUSATE SODIUM 50 MG/SENNA 8.6 MG TAB PO SCH ×2 (09:00→19:41)
[2016-05-23] MEDS: METOPROLOL TARTRATE 25 MG TAB PO SCH ×2 (09:14→20:07)
[2016-05-23] MEDS: LISINOPRIL 10 MG TAB PO SCH ×2 (09:14→20:07)
[2016-05-23] MEDS: FAMOTIDINE 20 MG TAB PO SCH ×2 (09:14→20:07)
[2016-05-23] MEDS: INSULIN DETEMIR 100 UNITS/ML VIAL SQ SCH ×2 (09:15→22:20)
[2016-05-23] MEDS: PANTOPRAZOLE SODIUM 40 MG VIAL IVP SCH (09:16)
[2016-05-23] MEDS: SODIUM CHLORIDE 0.9% FLUSH 5 ML FLUSH IVF SCH ×2 (09:16→20:08)
[2016-05-23] MEDS: NS + KCL 20 MEQ INJ 1,000 ML IV SCH ×2 (09:17→20:08)
[2016-05-23] MEDS: CHLORHEXIDINE 0.12% (ORAL KIT) 15 ML CUP MT SCH ×2 (09:18→20:07)
--- NOTE | 2016-05-23 11:54 | HHI.CCPN ---
Subjective Remarks/Hospital Course 05/03: 65 years old female was brought in by EMS for stroke alert. Patient has history of multiple strokes in the past. Patient has residual left-sided weakness from the strokes. Patient has an Antiphospholipid syndrome and is on Coumadin. Patient was sitting down watching TV with her then patient started became more unresponsive, having aphasia, nausea vomiting, dizziness, increasing left-sided weakness. EMS was called. Patient was brought to ED stroke alert. CT head revealed large posterior fossa ICH. 05/04: Remains sedated, orally intubated on mechanical ventilation. Underwent suboccipital decompression on 05/03. Ventriculostomy in place. ICPs below 10. Drained 150 cc CSF overnight 05/05: acutely this afternoon, her SBP increased from 150s to 200s. neuro exam unchanged, remains sedated on propofol without sedation vacation today per nsgy. pupillary exam unchanged, 2mm equal, reactive. required labetalol 60mg iv , esmolol 150mcg/kg/min, and cardene 15mg/hr to bring back down to goal SBP 150s. EVD still at 0 per nsgy. ICP in lateral ventricles 1. 05/06: severely hypertensive and febrile. re-cultured overnight. sputum growing GNR. 05/07: Patient remains hypertensive currently on nicardipine and esmolol infusions. Instructions given to titrated up nicardipine, start Norvasc 5 mg daily. Sputum culture with pansensitive Klebsiella. at the bedside updated 05/08: No improvement in neuro status. Continues to spike fever 103.3 MAXIMUM TEMPERATURE. Off nicardipine and esmolol. We'll start scheduled Tylenol and cooling blanket. repeat bruce culture 05/09: Continues to have persistent fever MAXIMUM TEMPERATURE 102, white count remains at 16,000. ID consulted also have ordered a lipase, US liver, venous ultrasound of all extremities. I will also change the central line, and give single dose of vancomycin 05/10: MAXIMUM TEMPERATURE is 102, but currently afebrile. Hemoglobin dropped to 6.8, WBC count 17.1. Sodium 152. Neuro exam remains unchanged. Venous ultrasound negative. Appreciate ID and GI consult. Started on Levophed 4 mcg/ min today 05/11: Tmax 101.4, but fever trending down. WBC 17. Hb 7.2. Transfuse 1U PRBC. Na 150. Off Levophed now, hypertensive. BP Labile. All cultures negative 05/12: Afebrile white count trending down 14,000 today. Restart her on Cardene infusion for hypotension. Plan for OR trach today by Dr. Mcfarlane 05/13: s/p trach yesterday. plan for IR to place G-J tube today. neurosurgery challenging EVD today- raised to 10. weaning sedation. poor neurologic exam persists. 05/14: EVD put out 90cc/24h at 10. no neuro improvements. 05/15: EVD put out 25cc/24h at 15. no neuro changes. Na slowly normalizing. also with significant yeast infection over back of neck. 05/16: EVD clamped at 08:30am. ICP stable. persistently poor neuro exam. Na continues to normalize. will trial CPAP today. 05/17: EVD remains clamped, ICP stable, CT head stable with mild ventricular enlargement. Neuro exam remains unchanged. Tolerated 3 hours C Pap yesterday, attempt 1-2 hours T piece trial yesterday 05/18: No significant events overnight. 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 Sodium normalized , will hold free water and restart when Na shows direction. 05/19: Back from OR after shunt. Stable hemodynamics, sats 97% 05/20: Shunt looks good on head CT. Ready for transfer to LTAC when OK with Neurosurgery. 05/21: Small left frontal SDH. Tolerating PSV. 05/22: Tolerating flow by / T-piece. Episodic hypertensive urgency. 05/23: Continues to tolerate flow-by tracheostomy ventilation. No neurological improvement. Objective Vital Signs Date Time Temp Pulse Resp B/P Pulse Ox O2 Delivery O2 Flow Rate FiO2 05/23/16 11:41 97 T-piece 5.00 28 05/23/16 08:00 69 05/23/16 08:00 98.6 20 143/56 Intake and Output 05/22/16 05/22/16 05/23/16 08:00 16:00 00:00 Intake Total 1099 ml 1439 ml 873 ml Output Total 850 ml 1650 ml 2750 ml Balance 249 ml -211 ml -1877 ml Result Diagram: 05/22/16 0415 05/22/16 0415 Imaging Last [address] 05/03/16 0000 Signed Impressions: Service Date/Time: Tuesday, May 03, 2016 01:18 - CONCLUSION: Large acute posterior fossa hemorrhage. There is also blood in the fourth and third ventricles. Report was called to Dr. Rodrigues at 1:30 AM. Haim Anaya MD Chest X-Ray 05/03/16 0000 Signed Impressions: Service Date/Time: Tuesday, May 03, 2016 01:53 - CONCLUSION: 1. Endotracheal tube tip is about 1.5 cm above the luis antonio. 2. Nasogastric tube courses into the stomach. 3. Lungs reasonably clear. Haim Anaya MD Objective Remarks HEENT: Pupils reactive to light. Clean head dressing. Neck: Trach site clean. Dry. Chest/Pulm: on mech vent, good air entry bilaterally, no wheezing or crackles, improved inspiratory effort with near normal inspiratory drive. CVS: S1-S2 regular, no murmur, No JVD. GI/abdomen: soft, nontender, bowel sounds present. No guarding. Extremities: warm bilaterally, trace edema, well perfused. Neuro: Pupils reactive to light. Withdraws bilateral lower extremities to pain, upper extremity remains flaccid, breathes spontaneously, does not track.. A/P Problem List: (1) Intracranial hemorrhage ICD Code: I62.9 Status: Acute (2) Respiratory failure with hypoxia ICD Code: J96.91 Status: Acute (3) Hypertension ICD Code: I10 Status: Acute (4) Atrial fibrillation ICD Code: I48.91 Status: Acute (5) Coagulopathy ICD Code: D68.9 Status: Acute (6) Diabetes ICD Code: E11.9 Status: Acute Assessment and Plan Neuro: Intracranial hemorrhagic stroke/large acute posterior fossa hemorrhage with intraventricular extension Acute encephalopathy - s/p posterior decompression on 05/04 - s/p hyperosmolar therapy. - EVD, monitor ICP. Keppra for seizure prophylaxis. Neurosurgery Dr. Chavez - EVD clamped yesterday, ICP remained stable, CT of the head remained stable except mild ventriculomegaly. EVD removal per Dr. Chavez - Scheduled Tylenol for fever - Haldol prn for agitation - oxycodone and hydromorphone for agitation or tachypnea/ vent synchrony - Trial dose of Provigil on 05/14 without effect. did not continue. Resp: Acute hypoxic and hypercarbic Respiratory failure - Intubated for airway protection, continue mechanical ventilation. - SBT with 1- 2 hour trach trial today - s/p trach 05/[address] Dent - DuoNeb `q 6 hour and PRN - T-piece trial today 05/21, CVS Hypertension - Continue labetalol to 200mg po q8h. - Holding amlodipine. - Hydralazine 20mg iv q20min and labetalol 20mg iv q1h for SBP >180 - Metoprolol 5mg iv q4h prn for HR > 100. - SBP goal <150, better controlled today. A.Fib - rate controlled - Add lisinopril, taper labetalol, add lopressor HEME Coagulopathy - reversed Coumadin with Vit K, FFP and Kcentra on admission. ENDO DM -Levemir 50 units [id number]. High-dose sliding scale insulin. 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 - EGD/colonoscopy 03/15/15- no evidence of upper bleed, colonoscopy revealed active bleeding through out the colon with poor visualization. - S/P bleed scan 03/14/15- positive potentially duodenal. S/P Angiogram of GDA, right colic, ileocolic, and SMA - Rpt. Colonoscopy (03/17/15)---> Colonic polyp, rectal ulcer, indurated area in ascending colon biopsied -continue free water 300mL q4h per tube-reduce to 100ml q6 -serum Na normalizing slowly. - TF at goal, tolerated. -Lipase level acceptable 05/22 ID Persistent fever/leukocytosis-now fevere has resolved - Leukocytosis noted. bruce cultured-neg to date. Continue vancomycin Azactam and Levaquin, and Diflucan. ID Dr. Kin Adan. Descalate therapy per Dr. Adan - Pansensitive Klebsiella in sputum. patient had witnessed aspiration event in OR per nursing report. DVT/GI prophylaxis - TEDs/SCDs/Pepcid OVERALL IMPRESSION: Now has permanent shunt. No neuro improvement. Stronger respiratory effort, sustains T-piece. Small left frontal SDH persists. Problem Qualifiers (1) Respiratory failure with hypoxia: Qualified Code: J96.01 - Acute respiratory failure with hypoxia (2) Diabetes: Qualified Code: E11.8 - Type 2 diabetes mellitus with complication, unspecified long term care pharmacist insulin use status Dwight Harden MD May 23, 2016 11:53
[2016-05-23] MEDS: hydrALAZINE HCL 20 MG/ML VIAL IV PUSH PRN (12:05)
[2016-05-23] MEDS: FLUCONAZOLE 100 MG PREMIX BAG 50 ML IV SCH (14:22)
[2016-05-24] VITALS (19 sets, daily range): BP systolic 118–176; BP diastolic 47–75; PULSE 62–89; RESP 13–24; TEMP 98.4–100.3; O2SAT 94–98
[2016-05-24] MEDS: oxyCODONE HCL ORAL CONC 20 MG/ML SYRINGE PO SCH ×6 (02:03→22:56)
[2016-05-24] MEDS: INSULIN ASPART SUPPLEMENTAL SCALE SQ SCH ×5 (04:00→20:26)
[2016-05-24] MEDS: CHLORHEXIDINE GLUCONATE 2 % 1 PACK (2 CLOTHS) TOP SCH ×2 (04:42→06:08)
[2016-05-24 05:17] LABS: BICARBONATE 26.9 MEQ/L (21.0-32.0); POTASSIUM 4.3 MEQ/L (3.5-5.1)
[2016-05-24] MEDS: LABETALOL HCL 200 MG TAB PO SCH ×3 (06:07→22:00)
[2016-05-24] MEDS: NS + KCL 20 MEQ INJ 1,000 ML IV SCH ×2 (06:08→20:23)
[2016-05-24] MEDS: CHLORHEXIDINE 0.12% (ORAL KIT) 15 ML CUP MT SCH ×2 (08:00→20:32)
[2016-05-24] MEDS: ARTIFICIAL TEARS OPTH SOLN 15 ML BTL EACH EYE SCH ×3 (08:09→18:00)
[2016-05-24] MEDS: SODIUM CHLORIDE 0.9% FLUSH 5 ML FLUSH IVF SCH ×2 (08:10→20:28)
[2016-05-24] MEDS: BISACODYL 10 MG SUPP RECTAL SCH (09:00)
[2016-05-24] MEDS: LISINOPRIL 10 MG TAB PO SCH ×2 (09:00→09:15)
[2016-05-24] MEDS: METOPROLOL TARTRATE 25 MG TAB PO SCH ×2 (09:00→09:15)
[2016-05-24] MEDS: POLYETHYLENE GLYCOL 17 GM PKG PO SCH ×2 (09:00→20:25)
[2016-05-24] MEDS: FAMOTIDINE 20 MG TAB PO SCH ×2 (09:00→20:23)
[2016-05-24] MEDS: LACTULOSE SYRUP 20 GM/30 ML CUP PO SCH ×2 (09:00→20:23)
[2016-05-24] MEDS: PANTOPRAZOLE SODIUM 40 MG VIAL IVP SCH (09:00)
[2016-05-24] MEDS: DOCUSATE SODIUM 50 MG/SENNA 8.6 MG TAB PO SCH ×2 (09:00→20:25)
[2016-05-24] MEDS: INSULIN DETEMIR 100 UNITS/ML VIAL SQ SCH ×2 (09:00→20:26)
--- NOTE | 2016-05-24 09:06 | HHI.CCPN ---
Subjective Remarks/Hospital Course 05/03: 65 years old female was brought in by EMS for stroke alert. Patient has history of multiple strokes in the past. Patient has residual left-sided weakness from the strokes. Patient has an Antiphospholipid syndrome and is on Coumadin. Patient was sitting down watching TV with her then patient started became more unresponsive, having aphasia, nausea vomiting, dizziness, increasing left-sided weakness. EMS was called. Patient was brought to ED stroke alert. CT head revealed large posterior fossa ICH. 05/04: Remains sedated, orally intubated on mechanical ventilation. Underwent suboccipital decompression on 05/03. Ventriculostomy in place. ICPs below 10. Drained 150 cc CSF overnight 05/05: acutely this afternoon, her SBP increased from 150s to 200s. neuro exam unchanged, remains sedated on propofol without sedation vacation today per nsgy. pupillary exam unchanged, 2mm equal, reactive. required labetalol 60mg iv , esmolol 150mcg/kg/min, and cardene 15mg/hr to bring back down to goal SBP 150s. EVD still at 0 per nsgy. ICP in lateral ventricles 1. 05/06: severely hypertensive and febrile. re-cultured overnight. sputum growing GNR. 05/07: Patient remains hypertensive currently on nicardipine and esmolol infusions. Instructions given to titrated up nicardipine, start Norvasc 5 mg daily. Sputum culture with pansensitive Klebsiella. at the bedside updated 05/08: No improvement in neuro status. Continues to spike fever 103.3 MAXIMUM TEMPERATURE. Off nicardipine and esmolol. We'll start scheduled Tylenol and cooling blanket. repeat bruce culture 05/09: Continues to have persistent fever MAXIMUM TEMPERATURE 102, white count remains at 16,000. ID consulted also have ordered a lipase, US liver, venous ultrasound of all extremities. I will also change the central line, and give single dose of vancomycin 05/10: MAXIMUM TEMPERATURE is 102, but currently afebrile. Hemoglobin dropped to 6.8, WBC count 17.1. Sodium 152. Neuro exam remains unchanged. Venous ultrasound negative. Appreciate ID and GI consult. Started on Levophed 4 mcg/ min today 05/11: Tmax 101.4, but fever trending down. WBC 17. Hb 7.2. Transfuse 1U PRBC. Na 150. Off Levophed now, hypertensive. BP Labile. All cultures negative 05/12: Afebrile white count trending down 14,000 today. Restart her on Cardene infusion for hypotension. Plan for OR trach today by Dr. Mcfarlane 05/13: s/p trach yesterday. plan for IR to place G-J tube today. neurosurgery challenging EVD today- raised to 10. weaning sedation. poor neurologic exam persists. 05/14: EVD put out 90cc/24h at 10. no neuro improvements. 05/15: EVD put out 25cc/24h at 15. no neuro changes. Na slowly normalizing. also with significant yeast infection over back of neck. 05/16: EVD clamped at 08:30am. ICP stable. persistently poor neuro exam. Na continues to normalize. will trial CPAP today. 05/17: EVD remains clamped, ICP stable, CT head stable with mild ventricular enlargement. Neuro exam remains unchanged. Tolerated 3 hours C Pap yesterday, attempt 1-2 hours T piece trial yesterday 05/18: No significant events overnight. 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 Sodium normalized , will hold free water and restart when Na shows direction. 05/19: Back from OR after shunt. Stable hemodynamics, sats 97% 05/20: Shunt looks good on head CT. Ready for transfer to LTAC when OK with Neurosurgery. 05/21: Small left frontal SDH. Tolerating PSV. 05/22: Tolerating flow by / T-piece. Episodic hypertensive urgency. 05/23: Continues to tolerate flow-by tracheostomy ventilation. No neurological improvement. 05/24: Continuing long-term weaning trials. Last up to 12 hours. PRVC hs. Objective Vital Signs Date Time Temp Pulse Resp B/P Pulse Ox O2 Delivery O2 Flow Rate FiO2 05/24/16 08:21 94 T-piece 28 05/24/16 08:00 65 05/24/16 08:00 98.4 15 118/52 05/23/16 11:41 5.00 Intake and Output 05/23/16 05/23/16 05/24/16 08:00 16:00 00:00 Intake Total 1305 ml 1639 ml 1333 ml Output Total 2450 ml 2000 ml 1550 ml Balance -1145 ml -361 ml -217 ml Result Diagram: 05/22/16 0415 05/24/16 0400 Imaging Last [address] 05/03/16 0000 Signed Impressions: Service Date/Time: Tuesday, May 03, 2016 01:18 - CONCLUSION: Large acute posterior fossa hemorrhage. There is also blood in the fourth and third ventricles. Report was called to Dr. Rodrigues at 1:30 AM. Haim Anaya MD Chest X-Ray 05/03/16 0000 Signed Impressions: Service Date/Time: Tuesday, May 03, 2016 01:53 - CONCLUSION: 1. Endotracheal tube tip is about 1.5 cm above the luis antonio. 2. Nasogastric tube courses into the stomach. 3. Lungs reasonably clear. Haim Anaya MD Objective Remarks HEENT: Pupils reactive to light. Clean head dressing. Neck: Trach site clean. Dry. Chest/Pulm: on mech vent, good air entry bilaterally, no wheezing or crackles. Stronger. CVS: S1-S2 regular, no murmur, No JVD. GI/abdomen: soft, nontender, bowel sounds present. No guarding. Extremities: warm bilaterally, 1+ edema, well perfused. Neuro: Pupils reactive to light. Withdraws bilateral lower extremities to pain, upper extremity remains flaccid, breathes spontaneously, does not track.. A/P Problem List: (1) Intracranial hemorrhage ICD Code: I62.9 Status: Acute (2) Respiratory failure with hypoxia ICD Code: J96.91 Status: Acute (3) Hypertension ICD Code: I10 Status: Acute (4) Atrial fibrillation ICD Code: I48.91 Status: Acute (5) Coagulopathy ICD Code: D68.9 Status: Acute (6) Diabetes ICD Code: E11.9 Status: Acute Assessment and Plan Neuro: Intracranial hemorrhagic stroke/large acute posterior fossa hemorrhage with intraventricular extension Acute encephalopathy - s/p posterior decompression on 05/04 - s/p hyperosmolar therapy. - EVD, monitor ICP. Keppra for seizure prophylaxis. Neurosurgery Dr. Chavez - EVD clamped yesterday, ICP remained stable, CT of the head remained stable except mild ventriculomegaly. EVD removal per Dr. Chavez - Scheduled Tylenol for fever - Haldol prn for agitation - oxycodone and hydromorphone for agitation or tachypnea/ vent synchrony - Trial dose of Provigil on 05/14 without effect. did not continue. --Permanent V-P shunt functioning well Resp: Acute hypoxic and hypercarbic Respiratory failure - Intubated for airway protection, continue mechanical ventilation. - SBT with 1- 2 hour trach trial today - s/p trach 05/[address] Dent - Shahida `q 6 hour and PRN - T-piece trial daily - last 10 -12 hours CVS Hypertension - Continue labetalol to 200mg po q8h. - Holding amlodipine. - Hydralazine 20mg iv q20min and labetalol 20mg iv q1h for SBP >180 - Metoprolol 5mg iv q4h prn for HR > 100. - SBP goal <150, better controlled today. A.Fib - rate controlled - Add lisinopril, taper labetalol, add lopressor HEME Coagulopathy - reversed Coumadin with Vit K, FFP and Kcentra on admission. ENDO DM -Levemir 50 units [id number]. High-dose sliding scale insulin. 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 - EGD/colonoscopy 03/15/15- no evidence of upper bleed, colonoscopy revealed active bleeding through out the colon with poor visualization. - S/P bleed scan 03/14/15- positive potentially duodenal. S/P Angiogram of GDA, right colic, ileocolic, and SMA - Rpt. Colonoscopy (03/17/15)---> Colonic polyp, rectal ulcer, indurated area in ascending colon biopsied -continue free water 300mL q4h per tube-reduce to 100ml q6 -serum Na normalizing slowly. - TF at goal, tolerated. -Lipase level acceptable 05/22 ID Persistent fever/leukocytosis-now fevere has resolved - Leukocytosis noted. bruce cultured-neg to date. Continue vancomycin Azactam and Levaquin, and Diflucan. ID Dr. Kin Adan. Descalate therapy per Dr. Adan - Pansensitive Klebsiella in sputum. patient had witnessed aspiration event in OR per nursing report. DVT/GI prophylaxis - TEDs/SCDs/Pepcid OVERALL IMPRESSION: Now has permanent shunt. No neuro improvement. Stronger respiratory effort, sustains T-piece for 1/2 day. Small left frontal SDH persists. Needs long-term vent weaning. 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
[2016-05-24] MEDS: hydrALAZINE HCL 20 MG/ML VIAL IV PUSH PRN ×2 (10:18→11:28)
[2016-05-24] MEDS: HYDROmorphone HCL PF 1 MG/ML VIAL IV PUSH PRN (10:25)
[2016-05-24] MEDS: LABETALOL HCL 100 MG/20 ML VIAL IVS PRN (10:52)
[2016-05-24] MEDS: levETIRAcetam INJ 500 MG in SODIUM CHLORIDE 0.9% INJ 100 ML IV SCH (12:28)
[2016-05-24] MEDS: FLUCONAZOLE 100 MG PREMIX BAG 50 ML IV SCH (15:36)
--- NOTE | 2016-05-24 15:57 | HHI.NSPN ---
(Bri Merchant) Note Status Status: Progress Note (Bri Merchant) Interval History Interval History This is a 65 year old female brought in by EMS as a stroke alert. She has history of multiple ischemic strokes in the past with residual left-sided weakness from the strokes. Patient has a history of Antiphospholipid syndrome and is on anticoagulated Coumadin. Apparently she was sitting down watching TV with her when she became unresponsive, with aphasia, nausea vomiting, dizziness, and increasing left-sided weakness. She is a known tyoe II diabetic and appears to be uncontrolled in ketoacidosis. EMS was called. She was brought to ED stroke alert. CT head revealed a posterior fossa ICH. She underwent emergen posterior fossa craniectomy with evacuation of cerebellar bleed and placement of ventriculostomy drain on 05/03/16. 05/04: well sedated. Pupils equal. EVD at 0 cm H20, ICPs below 10. 05/05: ICPs remains within normal limits, pupils equal, ventriculostomy draining well. 05/06: hypertensive, BP was up in the 200's systolic yesterday, on cardene. Currently running 150s. ICPs normal, EVD draining well. serum sodium 148. well sedated also for bp control. 05/07: intubated, sedated, pupils equal. EEG no ictal abnormalities. 05/10: EVD draining well, ICPs within normal limits. intubated and sedated on versed, no eye opening still. Fevers better, now with acute on chronic pancreatitis. CSF cultures pending. 05/11: no clinical changes, for trach/PEG today. 05/12: going for tracheostomy, ICPs wnl following raising of EVD to 5 cm yesterday 05/13: s/p tracheostomy placement, still on low dose Versed. positive cough/gag when suctioned, withdraws LE, pupils equal. still no report of eye opening or following commands. 05/17: challenging EVD, clamped over 24 hours,f/u CT Brain completed this am shows increase in ventricle size. No changes in neuro checks. 05/18: for ventriculoperitoenal shunt tomorrow, EVD draining well, ICPs within normal limits. 05/20: POD 1 s/p placement of MANAGER OF MANUFACTURING shunt, on CPAP, not tolerating t-piece. Slightly opens eyes but not following commands. 05/21: POD 2, less responsive today, not opening her eyes even to deep stimuli. 05/24: seen this am during rounds, POD 5 following MANAGER OF MANUFACTURING shunt placement, appears more awake, opening eyes more. in room. tolerating t-piece longer during the day. (Bri Merchant) Labs, Micro, & Vital Signs Results Date Time Temp Pulse Resp B/P Pulse Ox O2 Delivery O2 Flow Rate FiO2 05/24/16 14:00 80 05/24/16 13:12 96 40 05/24/16 12:00 84 05/24/16 12:00 100.3 89 24 176/75 96 05/24/16 12:00 30 05/24/16 10:52 94 40 05/24/16 10:00 71 05/24/16 08:21 94 T-piece 28 05/24/16 08:07 96 40 05/24/16 08:00 65 05/24/16 08:00 98.4 65 15 118/52 97 05/24/16 06:00 72 05/24/16 04:00 98.6 62 13 126/48 98 05/24/16 04:00 30 05/24/16 04:00 62 05/24/16 03:35 98 30 05/24/16 02:00 77 05/24/16 00:00 30 05/24/16 00:00 98.6 66 13 121/47 98 05/24/16 00:00 66 05/23/16 22:00 67 05/23/16 20:23 97 30 05/23/16 20:00 98.1 68 15 157/70 97 05/23/16 20:00 30 05/23/16 20:00 66 05/23/16 18:00 87 05/23/16 16:00 67 05/23/16 16:00 98.5 67 22 176/72 98 05/24/16 07:00 Intake Total 4290 ml Output Total 4125 ml Balance 165 ml Constitutional Vital Signs Date Time Temp Pulse Resp B/P Pulse Ox O2 Delivery O2 Flow Rate FiO2 05/24/16 14:00 80 05/24/16 13:12 96 40 05/24/16 12:00 84 05/24/16 12:00 100.3 89 24 176/75 96 05/24/16 12:00 30 05/24/16 10:52 94 40 05/24/16 10:00 71 05/24/16 08:21 94 T-piece 28 05/24/16 08:07 96 40 05/24/16 08:00 65 05/24/16 08:00 98.4 65 15 118/52 97 05/24/16 06:00 72 05/24/16 04:00 98.6 62 13 126/48 98 05/24/16 04:00 30 05/24/16 04:00 62 05/24/16 03:35 98 30 05/24/16 02:00 77 05/24/16 00:00 30 05/24/16 00:00 98.6 66 13 121/47 98 05/24/16 00:00 66 05/23/16 22:00 67 05/23/16 20:23 97 30 05/23/16 20:00 98.1 68 15 157/70 97 05/23/16 20:00 30 05/23/16 20:00 66 05/23/16 18:00 87 05/23/16 16:00 67 05/23/16 16:00 98.5 67 22 176/72 98 05/24/16 07:00 Intake Total 4290 ml Output Total 4125 ml Balance 165 ml (Bri Merchant) Review of Systems/Exam ROS cannot obtain due to clinical condition Exam Opening eyes, does not focus or track, not following commands. Surgical wound healing well, clean and dry. CN: pupils equal Motor: minimal withdrawal in the LE's and nursing reports mild withdrawal in the left upper extremity this am to pain Neck: tracheostomy on t-piece (Bri Merchant) Medications Current Medications Current Medications Medications (Trade) Dose Ordered Sig/Michelle Route PRN Reason Start Time Stop Time Status Last Admin Dose Admin Artificial Tears (Tears Naturale Opth Soln) 1 drop TID EACH EYE 05/03/16 09:00 05/24/16 12:27 Ondansetron HCl (Zofran Inj) 4 mg Q6H PRN IV NAUSEA OR VOMITING 05/03/16 04:30 Miscellaneous Information 1 Q361D XX 05/03/16 04:30 05/03/16 04:30 IV Flush (NS Flush) 2 ml UNSCH PRN IVF FLUSH AFTER USING IV ACCESS 05/03/16 12:30 05/18/16 11:54 IV Flush 2 ml 2 ml BID IVF 05/03/16 21:00 05/24/16 08:10 Levetriacetam/ Sodium Chloride (Keppra Inj/NS Inj) 105 ml @ 400 mls/hr Q12H IV 05/03/16 13:00 05/24/16 12:28 Calcium Gluconate 1 gm 1 gm UNSCH PRN IV SEE LABEL COMMENTS 05/03/16 12:30 Potassium Chloride 100 ml @ 50 mls/hr UNSCH PRN IV POTASSIUM LESS THAN 4 05/03/16 12:30 05/04/16 06:56 Magnesium Sulfate/ Sodium Chloride (Magnesium Sulfate Inj/NS Inj) 108 ml @ 108 mls/hr UNSCH PRN IV MAGNESIUM LESS THAN 2 05/03/16 12:30 Acetaminophen 650 mg 650 mg Q4H PRN PO TEMPERATURE > 101.5 F 05/03/16 12:30 05/08/16 10:38 Potassium Chloride 100 ml @ 50 mls/hr Q2H PRN IV For Potassium 2.8 - 3.2 mEq/L 05/04/16 08:45 Potassium Chloride (KCl 20 Meq Premix Inj) 100 ml @ 50 mls/hr Q2H PRN IV For Potassium 2.8 - 3.2 mEq/L 05/04/16 08:45 Potassium Chloride 40 meq 40 meq UNSCH PRN PO/TUBE For Potassium 3.3 - 3.5 mEq/L 05/04/16 08:45 Potassium Chloride 100 ml @ 25 mls/hr UNSCH PRN IV For Potassium 3.3 - 3.5 mEq/L 05/04/16 08:45 Potassium Chloride 100 ml @ 50 mls/hr Q2H PRN IV For Potassium 3.3 - 3.5 mEq/L 05/04/16 08:45 Magnesium Sulfate/ Sodium Chloride (Magnesium Sulfate Inj/NS Inj) 100 ml @ 50 mls/hr UNSCH PRN IV For Magnesium 0.9 - 1.1 mg/dL 05/04/16 08:45 Magnesium Oxide 800 mg 800 mg UNSCH PRN PO For Magnesium 1.2 - 1.6 mg/dL 05/04/16 08:45 Magnesium Sulfate/ Sodium Chloride (Magnesium Sulfate Inj/NS Inj) 100 ml @ 50 mls/hr UNSCH PRN IV For Magnesium 1.2 - 1.6 mg/dL 05/04/16 08:45 Potassium Phosphate 2000 mg 2,000 mg Q4H PRN PO For Phosphorus < 2.5 mg/dL 05/04/16 08:45 Sodium Phosphate/ Sodium Chloride (Sodium Phosphate Inj/NS 250 ml Inj) 250 ml @ 42 mls/hr UNSCH PRN IV For Phosphorus < 2.5 mg/dL 05/04/16 08:45 Potassium Chloride (KCl 40 Meq/30 ml Liq) 40 meq UNSCH PRN PO/TUBE SEE LABEL COMMENTS 05/04/16 08:45 Potassium Phosphate 2000 mg 2,000 mg UNSCH PRN PO/TUBE SEE LABEL COMMENTS 05/04/16 08:45 Potassium Phosphate/Sodium Chloride (Potassium Phosphate Inj/NS 250 ml Inj) 260 ml @ 42 mls/hr UNSCH PRN IV SEE LABEL COMMENTS 05/04/16 08:45 Insulin Aspart (NovoLOG SUPPLEMENTAL SCALE) 1 Q4HR SQ 05/04/16 12:00 05/24/16 12:00 Dextrose (D50w (Vial) Inj) 25 ml UNSCH PRN IV HYPOGLYCEMIA-SEE COMMENTS 05/04/16 08:45 05/23/16 04:15 Glucagon (Glucagon Inj) 1 mg UNSCH PRN IM/SQ HYPOGLYCEMIA-SEE COMMENTS 05/04/16 08:45 Insulin Detemir (Levemir Inj) 50 units Q12HR SQ 05/06/16 21:00 05/23/16 22:20 Labetalol HCl (Trandate Inj) 20 mg Q1H PRN IVS SBP greater than 160mm Hg 05/06/16 10:00 05/24/16 10:52 Metoprolol Tartrate (Lopressor Inj) 5 mg Q4H PRN IV PUSH HR > 100 05/06/16 11:00 05/22/16 12:28 Bisacodyl (Dulcolax Supp) 10 mg DAILY RECTAL 05/07/16 09:55 05/16/16 08:24 Polyethylene Glycol (Miralax) 17 gm BID PO 05/06/16 09:55 05/24/16 09:00 Lactulose (Lactulose Liq) 30 ml BID PO 05/06/16 11:00 05/24/16 09:00 Senna/Docusate Sodium (Meaghan-Colace) 1 tab BID PO 05/06/16 10:00 05/24/16 09:00 Miscellaneous (Pill Splitter) 1 ea UNSCH PRN OTHER SEE LABEL COMMENTS 05/06/16 21:00 Amlodipine Besylate (Norvasc) 10 mg DAILY PO 05/09/16 09:00 Hold Hydromorphone HCl (Dilaudid Pf Inj) 0.5 mg Q4H PRN IV PUSH pain 8-10 or not taking po 05/13/16 09:30 05/24/16 10:25 Oxycodone HCl (Roxicodone Intensol Liq) 5 mg Q4H PO 05/13/16 10:00 05/24/16 12:28 Haloperidol Lactate (Haldol Inj) 5 mg Q4H PRN IV agitation 05/13/16 09:30 Famotidine 20 mg 20 mg BID PO 05/14/16 21:00 05/24/16 09:00 Fluconazole/ Sodium Chloride 50 ml @ 50 mls/hr Q24H IV 05/18/16 14:00 05/24/16 15:36 Potassium Chloride/Sodium Chloride (NS + KCl 20 Meq Inj) 1,000 ml @ 100 mls/hr Q10H IV 05/19/16 10:59 05/24/16 06:08 Pantoprazole Sodium (Protonix Inj) 40 mg DAILY IVP 05/20/16 09:00 05/24/16 09:00 Chlorhexidine Gluconate (Peridex 0.12% Liq) 15 ml BID@08,20 MT 05/19/16 20:00 05/24/16 08:00 Miscellaneous Information 1 Q361D XX 05/19/16 14:15 Chlorhexidine Gluconate (Chlorhexidine 2% Cloth) 3 pack Taper DAILY@04 TOP 05/20/16 04:00 05/16/17 03:59 05/24/16 06:08 Chlorhexidine Gluconate (Chlorhexidine 2% Cloth) 3 pack UNSCH PRN TOP HYGIENIC CARE 05/19/16 14:15 Labetalol HCl (Trandate) 200 mg Q8HR PO 05/22/16 14:00 05/24/16 12:28 Hydralazine HCl (Apresoline Inj) 20 mg Q30M PRN IV PUSH SYS BP GREATER THAN 150 MMHG 05/24/16 12:30 Lisinopril (Prinivil) 20 mg Q12HR PO 05/24/16 21:00 Metoprolol Tartrate (Lopressor) 100 mg Q12HR PO 05/24/16 21:00 (Bri Merchant) Medical Decision Making MDM Remarks 65 y/o female with cerebellar bleed s/p posterior fossa craniectomy with evacuation of hematoma hydrocephalus following clamping of EVD, s/p placement of ventriculoperitoneal shunt 05/19/16 CT Brain 05/21 with small acute on chronic left SDH, shunt pressure raised to 160 mm H20 (Bri Merchant) Plan Plan Remarks doing better, dw in room Dr. Chavez recommend continued observation for now (Bri Merchant) Attending Statement The exam, history, and the medical decision-making described in the above note were completed with the assistance of the mid-level provider. I reviewed and agree with the findings presented. I attest that I had a [id number] encounter with the patient on the same day, and personally performed and documented my assessment and findings in the medical record. (Oumar Chavez MD) Bri Merchant May 24, 2016 15:57 Oumar Chavez MD May 29, 2016 17:59
[2016-05-24] MEDS: LISINOPRIL 20 MG TAB PO SCH (20:23)
[2016-05-24] MEDS: METOPROLOL TARTRATE 100 MG TAB PO SCH (20:25)
[2016-05-25] VITALS (19 sets, daily range): BP systolic 127–151; BP diastolic 47–68; PULSE 62–78; RESP 13–22; TEMP 98.7–99.2; O2SAT 94–99
[2016-05-25] MEDS: levETIRAcetam INJ 500 MG in SODIUM CHLORIDE 0.9% INJ 100 ML IV SCH ×2 (01:23→12:12)
[2016-05-25] MEDS: oxyCODONE HCL ORAL CONC 20 MG/ML SYRINGE PO SCH ×5 (01:23→17:44)
[2016-05-25] MEDS: LABETALOL HCL 100 MG/20 ML VIAL IVS PRN ×2 (01:49→19:27)
[2016-05-25] MEDS: SODIUM CHLORIDE 0.9% FLUSH 5 ML FLUSH IVF PRN ×2 (01:50→19:39)
[2016-05-25] MEDS: CHLORHEXIDINE GLUCONATE 2 % 1 PACK (2 CLOTHS) TOP SCH (04:00)
[2016-05-25] MEDS: INSULIN ASPART SUPPLEMENTAL SCALE SQ SCH ×6 (04:00→19:38)
[2016-05-25 04:29] LABS: BICARBONATE 26.5 MEQ/L (21.0-32.0); POTASSIUM 4.5 MEQ/L (3.5-5.1)
[2016-05-25] MEDS: NS + KCL 20 MEQ INJ 1,000 ML IV SCH ×3 (05:59→20:27)
[2016-05-25] MEDS: LABETALOL HCL 200 MG TAB PO SCH ×3 (06:00→21:05)
[2016-05-25] MEDS: CHLORHEXIDINE 0.12% (ORAL KIT) 15 ML CUP MT SCH ×2 (08:00→19:41)
[2016-05-25] MEDS: SODIUM CHLORIDE 0.9% FLUSH 5 ML FLUSH IVF SCH ×2 (08:45→20:18)
[2016-05-25] MEDS: LACTULOSE SYRUP 20 GM/30 ML CUP PO SCH ×2 (08:45→20:19)
[2016-05-25] MEDS: BISACODYL 10 MG SUPP RECTAL SCH (08:45)
[2016-05-25] MEDS: ARTIFICIAL TEARS OPTH SOLN 15 ML BTL EACH EYE SCH ×3 (08:45→17:44)
[2016-05-25] MEDS: POLYETHYLENE GLYCOL 17 GM PKG PO SCH ×2 (09:00→20:17)
[2016-05-25] MEDS: DOCUSATE SODIUM 50 MG/SENNA 8.6 MG TAB PO SCH ×2 (09:00→20:17)
[2016-05-25] MEDS: LISINOPRIL 20 MG TAB PO SCH ×2 (09:07→20:18)
[2016-05-25] MEDS: FAMOTIDINE 20 MG TAB PO SCH ×2 (09:07→20:18)
[2016-05-25] MEDS: METOPROLOL TARTRATE 100 MG TAB PO SCH ×2 (09:07→20:18)
[2016-05-25] MEDS: INSULIN DETEMIR 100 UNITS/ML VIAL SQ SCH ×2 (09:08→20:18)
[2016-05-25] MEDS: PANTOPRAZOLE SODIUM 40 MG VIAL IVP SCH (09:12)
--- NOTE | 2016-05-25 10:02 | HHI.NSPN ---
(Bri Merchant) Note Status Status: Progress Note (Bri Merchant) Interval History Interval History This is a 65 year old female brought in by EMS as a stroke alert. She has history of multiple ischemic strokes in the past with residual left-sided weakness from the strokes. Patient has a history of Antiphospholipid syndrome and is on anticoagulated Coumadin. Apparently she was sitting down watching TV with her when she became unresponsive, with aphasia, nausea vomiting, dizziness, and increasing left-sided weakness. She is a known tyoe II diabetic and appears to be uncontrolled in ketoacidosis. EMS was called. She was brought to ED stroke alert. CT head revealed a posterior fossa ICH. She underwent emergen posterior fossa craniectomy with evacuation of cerebellar bleed and placement of ventriculostomy drain on 05/03/16. 05/04: well sedated. Pupils equal. EVD at 0 cm H20, ICPs below 10. 05/05: ICPs remains within normal limits, pupils equal, ventriculostomy draining well. 05/06: hypertensive, BP was up in the 200's systolic yesterday, on cardene. Currently running 150s. ICPs normal, EVD draining well. serum sodium 148. well sedated also for bp control. 05/07: intubated, sedated, pupils equal. EEG no ictal abnormalities. 05/10: EVD draining well, ICPs within normal limits. intubated and sedated on versed, no eye opening still. Fevers better, now with acute on chronic pancreatitis. CSF cultures pending. 05/11: no clinical changes, for trach/PEG today. 05/12: going for tracheostomy, ICPs wnl following raising of EVD to 5 cm yesterday 05/13: s/p tracheostomy placement, still on low dose Versed. positive cough/gag when suctioned, withdraws LE, pupils equal. still no report of eye opening or following commands. 05/17: challenging EVD, clamped over 24 hours,f/u CT Brain completed this am shows increase in ventricle size. No changes in neuro checks. 05/18: for ventriculoperitoenal shunt tomorrow, EVD draining well, ICPs within normal limits. 05/20: POD 1 s/p placement of PSS DELIVERY PROFESSIONAL shunt, on CPAP, not tolerating t-piece. Slightly opens eyes but not following commands. 05/21: POD 2, less responsive today, not opening her eyes even to deep stimuli. 05/24: seen this am during rounds, POD 5 following PSS DELIVERY PROFESSIONAL shunt placement, appears more awake, opening eyes more. in room. tolerating t-piece longer during the day. 05/25: appears more awake, eyes open, family at bedside reports she may have moved her toes this am to command. (Bri Merchant) Labs, Micro, & Vital Signs Results Date Time Temp Pulse Resp B/P Pulse Ox O2 Delivery O2 Flow Rate FiO2 05/25/16 08:00 40 05/25/16 08:00 65 05/25/16 08:00 99.1 65 13 127/47 98 05/25/16 07:36 98 40 05/25/16 06:00 74 05/25/16 04:00 40 05/25/16 04:00 68 05/25/16 04:00 99.2 68 18 148/58 98 05/25/16 03:34 98 40 05/25/16 02:00 66 05/25/16 00:24 98 40 05/25/16 00:00 98.7 66 15 142/58 97 05/25/16 00:00 40 05/25/16 00:00 66 05/24/16 22:00 64 05/24/16 20:00 40 05/24/16 20:00 99.0 76 16 142/56 98 05/24/16 20:00 76 05/24/16 19:47 98 40 05/24/16 18:00 79 05/24/16 16:03 96 40 05/24/16 16:00 79 05/24/16 16:00 99.9 79 18 132/60 96 05/24/16 16:00 30 05/24/16 14:00 80 05/24/16 13:12 96 40 05/24/16 12:00 84 05/24/16 12:00 100.3 89 24 176/75 96 05/24/16 12:00 30 05/24/16 10:52 94 40 05/25/16 07:00 Intake Total 4024 ml Output Total 3225 ml Balance 799 ml Constitutional Vital Signs Date Time Temp Pulse Resp B/P Pulse Ox O2 Delivery O2 Flow Rate FiO2 05/25/16 08:00 40 05/25/16 08:00 65 05/25/16 08:00 99.1 65 13 127/47 98 05/25/16 07:36 98 40 05/25/16 06:00 74 05/25/16 04:00 40 05/25/16 04:00 68 05/25/16 04:00 99.2 68 18 148/58 98 05/25/16 03:34 98 40 05/25/16 02:00 66 05/25/16 00:24 98 40 05/25/16 00:00 98.7 66 15 142/58 97 05/25/16 00:00 40 05/25/16 00:00 66 05/24/16 22:00 64 05/24/16 20:00 40 05/24/16 20:00 99.0 76 16 142/56 98 05/24/16 20:00 76 05/24/16 19:47 98 40 05/24/16 18:00 79 05/24/16 16:03 96 40 05/24/16 16:00 79 05/24/16 16:00 99.9 79 18 132/60 96 05/24/16 16:00 30 05/24/16 14:00 80 05/24/16 13:12 96 40 05/24/16 12:00 84 05/24/16 12:00 100.3 89 24 176/75 96 05/24/16 12:00 30 05/24/16 10:52 94 40 05/25/16 07:00 Intake Total 4024 ml Output Total 3225 ml Balance 799 ml (Bri Merchant) Review of Systems/Exam ROS cannot obtain due to clinical condition Exam Eyes open but she does not focus or track, family in room reports she may have moved her toes this am to command Left PSS DELIVERY PROFESSIONAL shunt palpated with good bubble rebound. Surgical wound healing well. CN: pupils equal Motor: withdraws both legs to local stimuli Neck: tracheostomy (Bri Merchant) Medications Current Medications Current Medications Medications (Trade) Dose Ordered Sig/Michelle Route PRN Reason Start Time Stop Time Status Last Admin Dose Admin Artificial Tears (Tears Naturale Opth Soln) 1 drop TID EACH EYE 05/03/16 09:00 05/25/16 08:45 Ondansetron HCl (Zofran Inj) 4 mg Q6H PRN IV NAUSEA OR VOMITING 05/03/16 04:30 Miscellaneous Information 1 Q361D XX 05/03/16 04:30 05/03/16 04:30 IV Flush (NS Flush) 2 ml UNSCH PRN IVF FLUSH AFTER USING IV ACCESS 05/03/16 12:30 05/25/16 01:50 IV Flush 2 ml 2 ml BID IVF 05/03/16 21:00 05/25/16 08:45 Levetriacetam/ Sodium Chloride (Keppra Inj/NS Inj) 105 ml @ 400 mls/hr Q12H IV 05/03/16 13:00 05/25/16 01:23 Calcium Gluconate 1 gm 1 gm UNSCH PRN IV SEE LABEL COMMENTS 05/03/16 12:30 Potassium Chloride 100 ml @ 50 mls/hr UNSCH PRN IV POTASSIUM LESS THAN 4 05/03/16 12:30 05/04/16 06:56 Magnesium Sulfate/ Sodium Chloride (Magnesium Sulfate Inj/NS Inj) 108 ml @ 108 mls/hr UNSCH PRN IV MAGNESIUM LESS THAN 2 05/03/16 12:30 Acetaminophen 650 mg 650 mg Q4H PRN PO TEMPERATURE > 101.5 F 05/03/16 12:30 05/08/16 10:38 Potassium Chloride 100 ml @ 50 mls/hr Q2H PRN IV For Potassium 2.8 - 3.2 mEq/L 05/04/16 08:45 Potassium Chloride (KCl 20 Meq Premix Inj) 100 ml @ 50 mls/hr Q2H PRN IV For Potassium 2.8 - 3.2 mEq/L 05/04/16 08:45 Potassium Chloride 40 meq 40 meq UNSCH PRN PO/TUBE For Potassium 3.3 - 3.5 mEq/L 05/04/16 08:45 Potassium Chloride 100 ml @ 25 mls/hr UNSCH PRN IV For Potassium 3.3 - 3.5 mEq/L 05/04/16 08:45 Potassium Chloride 100 ml @ 50 mls/hr Q2H PRN IV For Potassium 3.3 - 3.5 mEq/L 05/04/16 08:45 Magnesium Sulfate/ Sodium Chloride (Magnesium Sulfate Inj/NS Inj) 100 ml @ 50 mls/hr UNSCH PRN IV For Magnesium 0.9 - 1.1 mg/dL 05/04/16 08:45 Magnesium Oxide 800 mg 800 mg UNSCH PRN PO For Magnesium 1.2 - 1.6 mg/dL 05/04/16 08:45 Magnesium Sulfate/ Sodium Chloride (Magnesium Sulfate Inj/NS Inj) 100 ml @ 50 mls/hr UNSCH PRN IV For Magnesium 1.2 - 1.6 mg/dL 05/04/16 08:45 Potassium Phosphate 2000 mg 2,000 mg Q4H PRN PO For Phosphorus < 2.5 mg/dL 05/04/16 08:45 Sodium Phosphate/ Sodium Chloride (Sodium Phosphate Inj/NS 250 ml Inj) 250 ml @ 42 mls/hr UNSCH PRN IV For Phosphorus < 2.5 mg/dL 05/04/16 08:45 Potassium Chloride (KCl 40 Meq/30 ml Liq) 40 meq UNSCH PRN PO/TUBE SEE LABEL COMMENTS 05/04/16 08:45 Potassium Phosphate 2000 mg 2,000 mg UNSCH PRN PO/TUBE SEE LABEL COMMENTS 05/04/16 08:45 Potassium Phosphate/Sodium Chloride (Potassium Phosphate Inj/NS 250 ml Inj) 260 ml @ 42 mls/hr UNSCH PRN IV SEE LABEL COMMENTS 05/04/16 08:45 Insulin Aspart (NovoLOG SUPPLEMENTAL SCALE) 1 Q4HR SQ 05/04/16 12:00 05/24/16 20:26 Dextrose (D50w (Vial) Inj) 25 ml UNSCH PRN IV HYPOGLYCEMIA-SEE COMMENTS 05/04/16 08:45 05/23/16 04:15 Glucagon (Glucagon Inj) 1 mg UNSCH PRN IM/SQ HYPOGLYCEMIA-SEE COMMENTS 05/04/16 08:45 Insulin Detemir (Levemir Inj) 50 units Q12HR SQ 05/06/16 21:00 05/25/16 09:08 Labetalol HCl (Trandate Inj) 20 mg Q1H PRN IVS SBP greater than 160mm Hg 05/06/16 10:00 05/25/16 01:49 Metoprolol Tartrate (Lopressor Inj) 5 mg Q4H PRN IV PUSH HR > 100 05/06/16 11:00 05/22/16 12:28 Bisacodyl (Dulcolax Supp) 10 mg DAILY RECTAL 05/07/16 09:55 05/16/16 08:24 Polyethylene Glycol (Miralax) 17 gm BID PO 05/06/16 09:55 05/24/16 09:00 Lactulose (Lactulose Liq) 30 ml BID PO 05/06/16 11:00 05/24/16 09:00 Senna/Docusate Sodium (Meaghan-Colace) 1 tab BID PO 05/06/16 10:00 05/24/16 09:00 Miscellaneous (Pill Splitter) 1 ea UNSCH PRN OTHER SEE LABEL COMMENTS 05/06/16 21:00 Amlodipine Besylate (Norvasc) 10 mg DAILY PO 05/09/16 09:00 Hold Hydromorphone HCl (Dilaudid Pf Inj) 0.5 mg Q4H PRN IV PUSH pain 8-10 or not taking po 05/13/16 09:30 05/24/16 10:25 Oxycodone HCl (Roxicodone Intensol Liq) 5 mg Q4H PO 05/13/16 10:00 05/25/16 09:11 Haloperidol Lactate (Haldol Inj) 5 mg Q4H PRN IV agitation 05/13/16 09:30 Famotidine 20 mg 20 mg BID PO 05/14/16 21:00 05/25/16 09:07 Fluconazole/ Sodium Chloride 50 ml @ 50 mls/hr Q24H IV 05/18/16 14:00 05/24/16 15:36 Potassium Chloride/Sodium Chloride (NS + KCl 20 Meq Inj) 1,000 ml @ 100 mls/hr Q10H IV 05/19/16 10:59 05/25/16 05:59 Pantoprazole Sodium (Protonix Inj) 40 mg DAILY IVP 05/20/16 09:00 05/25/16 09:12 Chlorhexidine Gluconate (Peridex 0.12% Liq) 15 ml BID@08,20 MT 05/19/16 20:00 05/25/16 08:00 Miscellaneous Information 1 Q361D XX 05/19/16 14:15 Chlorhexidine Gluconate (Chlorhexidine 2% Cloth) Taper DAILY@04 TOP 05/20/16 04:00 05/16/17 03:59 05/24/16 06:08 Chlorhexidine Gluconate (Chlorhexidine 2% Cloth) 3 pack UNSCH PRN TOP HYGIENIC CARE 05/19/16 14:15 Labetalol HCl (Trandate) 200 mg Q8HR PO 05/22/16 14:00 05/25/16 06:00 Hydralazine HCl (Apresoline Inj) 20 mg Q30M PRN IV PUSH SYS BP GREATER THAN 150 MMHG 05/24/16 12:30 Lisinopril (Prinivil) 20 mg Q12HR PO 05/24/16 21:00 05/25/16 09:07 Metoprolol Tartrate (Lopressor) 100 mg Q12HR PO 05/24/16 21:00 05/25/16 09:07 (Bri Merchant) Medical Decision Making MDM Remarks 65 y/o female with cerebellar bleed s/p posterior fossa craniectomy with evacuation of hematoma hydrocephalus following clamping of EVD, s/p placement of ventriculoperitoneal shunt 05/19/16 CT Brain 05/21 with small acute on chronic left SDH, shunt pressure raised to 160 mm H20 (Bri Merchant) Plan Plan Remarks cont current care more improvement in mental status today, Dr. Chavez dw in the room (Bri Merchant) Attending Statement The exam, history, and the medical decision-making described in the above note were completed with the assistance of the mid-level provider. I reviewed and agree with the findings presented. I attest that I had a [id number] encounter with the patient on the same day, and personally performed and documented my assessment and findings in the medical record. (Oumar Chavez MD) Bri Mercahnt May 25, 2016 10:02 Oumar Chavez MD May 29, 2016 18:01
--- NOTE | 2016-05-25 10:51 | HHI.CCPN ---
Subjective Remarks/Hospital Course 05/03: 65 years old female was brought in by EMS for stroke alert. Patient has history of multiple strokes in the past. Patient has residual left-sided weakness from the strokes. Patient has an Antiphospholipid syndrome and is on Coumadin. Patient was sitting down watching TV with her then patient started became more unresponsive, having aphasia, nausea vomiting, dizziness, increasing left-sided weakness. EMS was called. Patient was brought to ED stroke alert. CT head revealed large posterior fossa ICH. 05/04: Remains sedated, orally intubated on mechanical ventilation. Underwent suboccipital decompression on 05/03. Ventriculostomy in place. ICPs below 10. Drained 150 cc CSF overnight 05/05: acutely this afternoon, her SBP increased from 150s to 200s. neuro exam unchanged, remains sedated on propofol without sedation vacation today per nsgy. pupillary exam unchanged, 2mm equal, reactive. required labetalol 60mg iv , esmolol 150mcg/kg/min, and cardene 15mg/hr to bring back down to goal SBP 150s. EVD still at 0 per nsgy. ICP in lateral ventricles 1. 05/06: severely hypertensive and febrile. re-cultured overnight. sputum growing GNR. 05/07: Patient remains hypertensive currently on nicardipine and esmolol infusions. Instructions given to titrated up nicardipine, start Norvasc 5 mg daily. Sputum culture with pansensitive Klebsiella. at the bedside updated 05/08: No improvement in neuro status. Continues to spike fever 103.3 MAXIMUM TEMPERATURE. Off nicardipine and esmolol. We'll start scheduled Tylenol and cooling blanket. repeat bruce culture 05/09: Continues to have persistent fever MAXIMUM TEMPERATURE 102, white count remains at 16,000. ID consulted also have ordered a lipase, US liver, venous ultrasound of all extremities. I will also change the central line, and give single dose of vancomycin 05/10: MAXIMUM TEMPERATURE is 102, but currently afebrile. Hemoglobin dropped to 6.8, WBC count 17.1. Sodium 152. Neuro exam remains unchanged. Venous ultrasound negative. Appreciate ID and GI consult. Started on Levophed 4 mcg/ min today 05/11: Tmax 101.4, but fever trending down. WBC 17. Hb 7.2. Transfuse 1U PRBC. Na 150. Off Levophed now, hypertensive. BP Labile. All cultures negative 05/12: Afebrile white count trending down 14,000 today. Restart her on Cardene infusion for hypotension. Plan for OR trach today by Dr. Mcfarlane 05/13: s/p trach yesterday. plan for IR to place G-J tube today. neurosurgery challenging EVD today- raised to 10. weaning sedation. poor neurologic exam persists. 05/14: EVD put out 90cc/24h at 10. no neuro improvements. 05/15: EVD put out 25cc/24h at 15. no neuro changes. Na slowly normalizing. also with significant yeast infection over back of neck. 05/16: EVD clamped at 08:30am. ICP stable. persistently poor neuro exam. Na continues to normalize. will trial CPAP today. 05/17: EVD remains clamped, ICP stable, CT head stable with mild ventricular enlargement. Neuro exam remains unchanged. Tolerated 3 hours C Pap yesterday, attempt 1-2 hours T piece trial yesterday 05/18: No significant events overnight. For MARKETING INTELLIGENCE MANAGER shunt tomorrow. Sodium normalized , will hold free water and restart when Na shows direction. 05/19: Back from OR after shunt. Stable hemodynamics, sats 97% 05/20: Shunt looks good on head CT. Ready for transfer to LTAC when OK with Neurosurgery. 05/21: Small left frontal SDH. Tolerating PSV. 05/22: Tolerating flow by / T-piece. Episodic hypertensive urgency. 05/23: Continues to tolerate flow-by tracheostomy ventilation. No neurological improvement. 05/24: Continuing long-term weaning trials. Last up to 12 hours. [facility] hs. 05/25: Continuing vent weaning. BP control much improved with additional scheduled meds. Objective Vital Signs Date Time Temp Pulse Resp B/P Pulse Ox O2 Delivery O2 Flow Rate FiO2 05/25/16 10:00 63 05/25/16 08:00 40 05/25/16 08:00 99.1 13 127/47 98 05/24/16 08:21 T-piece 05/23/16 11:41 5.00 Intake and Output 05/24/16 05/24/16 05/25/16 08:00 16:00 00:00 Intake Total 1318 ml 1357 ml 1438 ml Output Total 575 ml 975 ml 1150 ml Balance 743 ml 382 ml 288 ml Result Diagram: 05/22/16 0415 05/25/16 0335 Imaging Last [address] 05/03/16 0000 Signed Impressions: Service Date/Time: Tuesday, May 03, 2016 01:18 - CONCLUSION: Large acute posterior fossa hemorrhage. There is also blood in the fourth and third ventricles. Report was called to Dr. Rodrigues at 1:30 AM. Haim Anaya MD Chest X-Ray 05/03/16 0000 Signed Impressions: Service Date/Time: Tuesday, May 03, 2016 01:53 - CONCLUSION: 1. Endotracheal tube tip is about 1.5 cm above the luis antonio. 2. Nasogastric tube courses into the stomach. 3. Lungs reasonably clear. Haim Anaya MD Objective Remarks HEENT: Pupils reactive to light. Neck: Trach site clean. Dry. Minimal secretions. Chest/Pulm: on mech vent, good air entry bilaterally, no wheezing or crackles. Stronger. CVS: S1-S2 regular, no murmur, No JVD. GI/abdomen: Soft, nontender, nondistended, bowel sounds present. No guarding. Extremities: Warm bilaterally, tr+ edema, well perfused. Neuro: Pupils reactive to light. Withdraws bilateral lower extremities to pain, upper extremities remains flaccid, breathes spontaneously. A/P Problem List: (1) Intracranial hemorrhage ICD Code: I62.9 Status: Acute (2) Respiratory failure with hypoxia ICD Code: J96.91 Status: Acute (3) Hypertension ICD Code: I10 Status: Acute (4) Atrial fibrillation ICD Code: I48.91 Status: Acute (5) Coagulopathy ICD Code: D68.9 Status: Acute (6) Diabetes ICD Code: E11.9 Status: Acute Assessment and Plan Neuro: Intracranial hemorrhagic stroke/large acute posterior fossa hemorrhage with intraventricular extension Acute encephalopathy - s/p posterior decompression on 05/04 - s/p hyperosmolar therapy. - EVD, monitor ICP. Keppra for seizure prophylaxis. Neurosurgery Dr. Chavez - EVD clamped yesterday, ICP remained stable, CT of the head remained stable except mild ventriculomegaly. EVD removal per Dr. Chavez - Scheduled Tylenol for fever - Haldol prn for agitation - oxycodone and hydromorphone for agitation or tachypnea/ vent synchrony - Trial dose of Provigil on 05/14 without effect. did not continue. --Permanent V-P shunt functioning well Resp: Acute hypoxic and hypercarbic Respiratory failure - Intubated for airway protection, continue mechanical ventilation. - SBT with 1- 2 hour trach trial today - s/p trach 05/[address] Dent - DuoNeb `q 6 hour and PRN - T-piece trial daily - last 10 -12 hours CVS Hypertension - Continue labetalol to 200mg po q8h. - Holding amlodipine. - Hydralazine 20mg iv q20min and labetalol 20mg iv q1h for SBP >180 - Metoprolol 5mg iv q4h prn for HR > 100. - SBP goal <150, better controlled today. A.Fib - rate controlled - Now on lisinopril, taper labetalol, add lopressor HEME Coagulopathy - reversed Coumadin with Vit K, FFP and Kcentra on admission. ENDO DM -Levemir 50 units [id number]. High-dose sliding scale insulin. 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 - EGD/colonoscopy 03/15/15- no evidence of upper bleed, colonoscopy revealed active bleeding through out the colon with poor visualization. - S/P bleed scan 03/14/15- positive potentially duodenal. S/P Angiogram of GDA, right colic, ileocolic, and SMA - Rpt. Colonoscopy (03/17/15)---> Colonic polyp, rectal ulcer, indurated area in ascending colon biopsied -continue free water 300mL q4h per tube-reduce to 100ml q6 -serum Na normalizing slowly. - TF at goal, tolerated. -Lipase level acceptable 05/22 ID Persistent fever/leukocytosis-now fevere has resolved - Leukocytosis noted. bruce cultured-neg to date. Continue vancomycin Azactam and Levaquin, and Diflucan. ID Dr. Kin Adan. De-escalate therapy per Dr. Adan - Pansensitive Klebsiella in sputum -> resolved. DVT/GI prophylaxis - TEDs/SCDs/Pepcid OVERALL IMPRESSION: Now has permanent shunt. No neuro improvement. Stronger respiratory effort, sustains T-piece for 1/2 day. Small left frontal SDH persists. Needs long-term vent weaning. Blood pressure control improved on new med additions. Problem Qualifiers (1) Respiratory failure with hypoxia: Qualified Code: J96.01 - Acute respiratory failure with hypoxia (2) Diabetes: Qualified Code: E11.8 - Type 2 diabetes mellitus with complication, unspecified group home insulin use status Dwight Harden MD May 25, 2016 10:51
[2016-05-25] MEDS: FLUCONAZOLE 100 MG PREMIX BAG 50 ML IV SCH (13:39)
[2016-05-25] MEDS: hydrALAZINE HCL 20 MG/ML VIAL IV PUSH PRN (16:10)
[2016-05-26] VITALS (17 sets, daily range): BP systolic 126–166; BP diastolic 59–92; PULSE 66–78; RESP 14–19; TEMP 98.3–99.3; O2SAT 97–100
[2016-05-26] MEDS: SODIUM CHLORIDE 0.9% FLUSH 5 ML FLUSH IVF PRN (00:03)
[2016-05-26] MEDS: LABETALOL HCL 100 MG/20 ML VIAL IVS PRN ×3 (00:03→14:33)
[2016-05-26] MEDS: levETIRAcetam INJ 500 MG in SODIUM CHLORIDE 0.9% INJ 100 ML IV SCH ×2 (01:07→14:11)
[2016-05-26] MEDS: oxyCODONE HCL ORAL CONC 20 MG/ML SYRINGE PO SCH ×6 (01:08→22:33)
[2016-05-26] MEDS: CHLORHEXIDINE GLUCONATE 2 % 1 PACK (2 CLOTHS) TOP SCH (04:00)
[2016-05-26] MEDS: INSULIN ASPART SUPPLEMENTAL SCALE SQ SCH ×6 (04:00→20:00)
[2016-05-26] MEDS: hydrALAZINE HCL 20 MG/ML VIAL IV PUSH PRN ×2 (04:38→23:37)
[2016-05-26] MEDS: LABETALOL HCL 200 MG TAB PO SCH ×3 (05:40→22:33)
[2016-05-26] MEDS: FAMOTIDINE 20 MG TAB PO SCH ×2 (08:59→20:44)
[2016-05-26] MEDS: SODIUM CHLORIDE 0.9% FLUSH 5 ML FLUSH IVF SCH ×2 (08:59→20:44)
[2016-05-26] MEDS: PANTOPRAZOLE SODIUM 40 MG VIAL IVP SCH (08:59)
[2016-05-26] MEDS: METOPROLOL TARTRATE 100 MG TAB PO SCH ×2 (08:59→20:45)
[2016-05-26] MEDS: LACTULOSE SYRUP 20 GM/30 ML CUP PO SCH ×2 (08:59→20:46)
[2016-05-26] MEDS: INSULIN DETEMIR 100 UNITS/ML VIAL SQ SCH ×2 (09:00→20:39)
[2016-05-26] MEDS: DOCUSATE SODIUM 50 MG/SENNA 8.6 MG TAB PO SCH ×2 (09:00→20:45)
[2016-05-26] MEDS: POLYETHYLENE GLYCOL 17 GM PKG PO SCH ×2 (09:00→20:45)
[2016-05-26] MEDS: BISACODYL 10 MG SUPP RECTAL SCH (09:00)
[2016-05-26] MEDS: LISINOPRIL 20 MG TAB PO SCH ×2 (09:04→20:44)
[2016-05-26] MEDS: ARTIFICIAL TEARS OPTH SOLN 15 ML BTL EACH EYE SCH ×3 (10:32→17:57)
[2016-05-26] MEDS: CHLORHEXIDINE 0.12% (ORAL KIT) 15 ML CUP MT SCH ×2 (10:32→20:44)
--- NOTE | 2016-05-26 11:18 | HHI.NSPN ---
Note Status Status: Progress Note Interval History Interval History This is a 65 year old female brought in by EMS as a stroke alert. She has history of multiple ischemic strokes in the past with residual left-sided weakness from the strokes. Patient has a history of Antiphospholipid syndrome and is on anticoagulated Coumadin. Apparently she was sitting down watching TV with her when she became unresponsive, with aphasia, nausea vomiting, dizziness, and increasing left-sided weakness. She is a known tyoe II diabetic and appears to be uncontrolled in ketoacidosis. EMS was called. She was brought to ED stroke alert. CT head revealed a posterior fossa ICH. She underwent emergen posterior fossa craniectomy with evacuation of cerebellar bleed and placement of ventriculostomy drain on 05/03/16. 05/04: well sedated. Pupils equal. EVD at 0 cm H20, ICPs below 10. 05/05: ICPs remains within normal limits, pupils equal, ventriculostomy draining well. 05/06: hypertensive, BP was up in the 200's systolic yesterday, on cardene. Currently running 150s. ICPs normal, EVD draining well. serum sodium 148. well sedated also for bp control. 05/07: intubated, sedated, pupils equal. EEG no ictal abnormalities. 05/10: EVD draining well, ICPs within normal limits. intubated and sedated on versed, no eye opening still. Fevers better, now with acute on chronic pancreatitis. CSF cultures pending. 05/11: no clinical changes, for trach/PEG today. 05/12: going for tracheostomy, ICPs wnl following raising of EVD to 5 cm yesterday 05/13: s/p tracheostomy placement, still on low dose Versed. positive cough/gag when suctioned, withdraws LE, pupils equal. still no report of eye opening or following commands. 05/17: challenging EVD, clamped over 24 hours,f/u CT Brain completed this am shows increase in ventricle size. No changes in neuro checks. 05/18: for ventriculoperitoenal shunt tomorrow, EVD draining well, ICPs within normal limits. 05/20: POD 1 s/p placement of MUD CLEANER OPERATOR shunt, on CPAP, not tolerating t-piece. Slightly opens eyes but not following commands. 05/21: POD 2, less responsive today, not opening her eyes even to deep stimuli. 05/24: seen this am during rounds, POD 5 following MUD CLEANER OPERATOR shunt placement, appears more awake, opening eyes more. in room. tolerating t-piece longer during the day. 05/25: appears more awake, eyes open, family at bedside reports she may have moved her toes this am to command. 05/26: focusing more today, no changes overnight Labs, Micro, & Vital Signs Results Date Time Temp Pulse Resp B/P Pulse Ox O2 Delivery O2 Flow Rate FiO2 05/26/16 08:38 100 T-piece 40 05/26/16 08:00 40 05/26/16 06:00 68 05/26/16 04:16 100 40 05/26/16 04:00 99.1 72 18 100 126/59 05/26/16 04:00 40 05/26/16 04:00 72 05/26/16 02:00 70 05/26/16 00:41 100 40 05/26/16 00:00 70 05/26/16 00:00 40 05/26/16 00:00 99.3 70 18 166/64 100 05/25/16 22:00 64 05/25/16 20:21 99 40 05/25/16 20:00 72 05/25/16 20:00 99.2 72 16 144/65 99 05/25/16 20:00 40 05/25/16 18:37 99 40 05/25/16 18:00 75 05/25/16 16:39 99 40 05/25/16 16:00 98.9 65 22 139/68 95 05/25/16 16:00 65 05/25/16 14:00 72 05/25/16 12:00 40 05/25/16 12:00 98.8 67 13 151/53 97 05/25/16 12:00 62 05/26/16 07:00 Intake Total 4252 ml Output Total 4400 ml Balance -148 ml Constitutional Vital Signs Date Time Temp Pulse Resp B/P Pulse Ox O2 Delivery O2 Flow Rate FiO2 05/26/16 08:38 100 T-piece 40 05/26/16 08:00 40 05/26/16 06:00 68 05/26/16 04:16 100 40 05/26/16 04:00 99.1 72 18 100 126/59 05/26/16 04:00 40 05/26/16 04:00 72 05/26/16 02:00 70 05/26/16 00:41 100 40 05/26/16 00:00 70 05/26/16 00:00 40 05/26/16 00:00 99.3 70 18 166/64 100 05/25/16 22:00 64 05/25/16 20:21 99 40 05/25/16 20:00 72 05/25/16 20:00 99.2 72 16 144/65 99 05/25/16 20:00 40 05/25/16 18:37 99 40 05/25/16 18:00 75 05/25/16 16:39 99 40 05/25/16 16:00 98.9 65 22 139/68 95 05/25/16 16:00 65 05/25/16 14:00 72 05/25/16 12:00 40 05/25/16 12:00 98.8 67 13 151/53 97 05/25/16 12:00 62 05/26/16 07:00 Intake Total 4252 ml Output Total 4400 ml Balance -148 ml Review of Systems/Exam ROS cannot obtain due to clinical condition Exam Eyes open but she does not focus or track, family in room reports she may have moved her toes this am to command Left MUD CLEANER OPERATOR shunt palpated with good bubble rebound. Surgical wound healing well. CN: pupils equal Motor: withdraws both legs to local stimuli Neck: tracheostomy Medications Current Medications Current Medications Medications (Trade) Dose Ordered Sig/Michelle Route PRN Reason Start Time Stop Time Status Last Admin Dose Admin Artificial Tears (Tears Naturale Opth Soln) 1 drop TID EACH EYE 05/03/16 09:00 05/26/16 10:32 Ondansetron HCl (Zofran Inj) 4 mg Q6H PRN IV NAUSEA OR VOMITING 05/03/16 04:30 Miscellaneous Information 1 Q361D XX 05/03/16 04:30 05/03/16 04:30 IV Flush (NS Flush) 2 ml UNSCH PRN IVF FLUSH AFTER USING IV ACCESS 05/03/16 12:30 05/26/16 00:03 IV Flush 2 ml 2 ml BID IVF 05/03/16 21:00 05/26/16 08:59 Levetriacetam/ Sodium Chloride (Keppra Inj/NS Inj) 105 ml @ 400 mls/hr Q12H IV 05/03/16 13:00 05/26/16 01:07 Calcium Gluconate 1 gm 1 gm UNSCH PRN IV SEE LABEL COMMENTS 05/03/16 12:30 Potassium Chloride 100 ml @ 50 mls/hr UNSCH PRN IV POTASSIUM LESS THAN 4 05/03/16 12:30 05/04/16 06:56 Magnesium Sulfate/ Sodium Chloride (Magnesium Sulfate Inj/NS Inj) 108 ml @ 108 mls/hr UNSCH PRN IV MAGNESIUM LESS THAN 2 05/03/16 12:30 Acetaminophen 650 mg 650 mg Q4H PRN PO TEMPERATURE > 101.5 F 05/03/16 12:30 05/08/16 10:38 Potassium Chloride 100 ml @ 50 mls/hr Q2H PRN IV For Potassium 2.8 - 3.2 mEq/L 05/04/16 08:45 Potassium Chloride (KCl 20 Meq Premix Inj) 100 ml @ 50 mls/hr Q2H PRN IV For Potassium 2.8 - 3.2 mEq/L 05/04/16 08:45 Potassium Chloride 40 meq 40 meq UNSCH PRN PO/TUBE For Potassium 3.3 - 3.5 mEq/L 05/04/16 08:45 Potassium Chloride 100 ml @ 25 mls/hr UNSCH PRN IV For Potassium 3.3 - 3.5 mEq/L 05/04/16 08:45 Potassium Chloride 100 ml @ 50 mls/hr Q2H PRN IV For Potassium 3.3 - 3.5 mEq/L 05/04/16 08:45 Magnesium Sulfate/ Sodium Chloride (Magnesium Sulfate Inj/NS Inj) 100 ml @ 50 mls/hr UNSCH PRN IV For Magnesium 0.9 - 1.1 mg/dL 05/04/16 08:45 Magnesium Oxide 800 mg 800 mg UNSCH PRN PO For Magnesium 1.2 - 1.6 mg/dL 05/04/16 08:45 Magnesium Sulfate/ Sodium Chloride (Magnesium Sulfate Inj/NS Inj) 100 ml @ 50 mls/hr UNSCH PRN IV For Magnesium 1.2 - 1.6 mg/dL 05/04/16 08:45 Potassium Phosphate 2000 mg 2,000 mg Q4H PRN PO For Phosphorus < 2.5 mg/dL 05/04/16 08:45 Sodium Phosphate/ Sodium Chloride (Sodium Phosphate Inj/NS 250 ml Inj) 250 ml @ 42 mls/hr UNSCH PRN IV For Phosphorus < 2.5 mg/dL 05/04/16 08:45 Potassium Chloride (KCl 40 Meq/30 ml Liq) 40 meq UNSCH PRN PO/TUBE SEE LABEL COMMENTS 05/04/16 08:45 Potassium Phosphate 2000 mg 2,000 mg UNSCH PRN PO/TUBE SEE LABEL COMMENTS 05/04/16 08:45 Potassium Phosphate/Sodium Chloride (Potassium Phosphate Inj/NS 250 ml Inj) 260 ml @ 42 mls/hr UNSCH PRN IV SEE LABEL COMMENTS 05/04/16 08:45 Insulin Aspart (NovoLOG SUPPLEMENTAL SCALE) 1 Q4HR SQ 05/04/16 12:00 05/24/16 20:26 Dextrose (D50w (Vial) Inj) 25 ml UNSCH PRN IV HYPOGLYCEMIA-SEE COMMENTS 05/04/16 08:45 05/23/16 04:15 Glucagon (Glucagon Inj) 1 mg UNSCH PRN IM/SQ HYPOGLYCEMIA-SEE COMMENTS 05/04/16 08:45 Insulin Detemir (Levemir Inj) 50 units Q12HR SQ 05/06/16 21:00 05/26/16 09:00 Labetalol HCl (Trandate Inj) 20 mg Q1H PRN IVS SBP greater than 160mm Hg 05/06/16 10:00 05/26/16 01:07 Metoprolol Tartrate (Lopressor Inj) 5 mg Q4H PRN IV PUSH HR > 100 05/06/16 11:00 05/22/16 12:28 Bisacodyl (Dulcolax Supp) 10 mg DAILY RECTAL 05/07/16 09:55 05/16/16 08:24 Polyethylene Glycol (Miralax) 17 gm BID PO 05/06/16 09:55 05/25/16 20:17 Lactulose (Lactulose Liq) 30 ml BID PO 05/06/16 11:00 05/24/16 09:00 Senna/Docusate Sodium (Meaghan-Colace) 1 tab BID PO 05/06/16 10:00 05/25/16 20:17 Miscellaneous (Pill Splitter) 1 ea UNSCH PRN OTHER SEE LABEL COMMENTS 05/06/16 21:00 Amlodipine Besylate (Norvasc) 10 mg DAILY PO 05/09/16 09:00 Hold Hydromorphone HCl (Dilaudid Pf Inj) 0.5 mg Q4H PRN IV PUSH pain 8-10 or not taking po 05/13/16 09:30 05/24/16 10:25 Oxycodone HCl (Roxicodone Intensol Liq) 5 mg Q4H PO 05/13/16 10:00 05/26/16 05:40 Haloperidol Lactate (Haldol Inj) 5 mg Q4H PRN IV agitation 05/13/16 09:30 Famotidine 20 mg 20 mg BID PO 05/14/16 21:00 05/26/16 08:59 Fluconazole/ Sodium Chloride 50 ml @ 50 mls/hr Q24H IV 05/18/16 14:00 05/25/16 13:39 Potassium Chloride/Sodium Chloride (NS + KCl 20 Meq Inj) 1,000 ml @ 100 mls/hr Q10H IV 05/19/16 10:59 05/25/16 20:27 Pantoprazole Sodium (Protonix Inj) 40 mg DAILY IVP 05/20/16 09:00 05/26/16 08:59 Chlorhexidine Gluconate (Peridex 0.12% Liq) 15 ml BID@08,20 MT 05/19/16 20:00 05/26/16 10:32 Miscellaneous Information 1 Q361D XX 05/19/16 14:15 Chlorhexidine Gluconate (Chlorhexidine 2% Cloth) Taper DAILY@04 TOP 05/20/16 04:00 05/16/17 03:59 05/24/16 06:08 Chlorhexidine Gluconate (Chlorhexidine 2% Cloth) 3 pack UNSCH PRN TOP HYGIENIC CARE 05/19/16 14:15 Labetalol HCl (Trandate) 200 mg Q8HR PO 05/22/16 14:00 05/26/16 05:40 Hydralazine HCl (Apresoline Inj) 20 mg Q30M PRN IV PUSH SYS BP GREATER THAN 150 MMHG 05/24/16 12:30 05/26/16 04:38 Lisinopril (Prinivil) 20 mg Q12HR PO 05/24/16 21:00 05/26/16 09:04 Metoprolol Tartrate (Lopressor) 100 mg Q12HR PO 05/24/16 21:00 05/26/16 08:59 Medical Decision Making MDM Remarks 65 y/o female with cerebellar bleed s/p posterior fossa craniectomy with evacuation of hematoma hydrocephalus following clamping of EVD, s/p placement of ventriculoperitoneal shunt 05/19/16 CT Brain 05/21 with small acute on chronic left SDH, shunt pressure raised to 160 mm H20 Plan Plan Remarks cont current care more improvement in mental status again today, Dr. Kathy zaragoza in the room dc planning Bri Merchant May 26, 2016 11:18
--- NOTE | 2016-05-26 12:02 | HHI.CCPN ---
Subjective Remarks/Hospital Course 05/03: 65 years old female was brought in by EMS for stroke alert. Patient has history of multiple strokes in the past. Patient has residual left-sided weakness from the strokes. Patient has an Antiphospholipid syndrome and is on Coumadin. Patient was sitting down watching TV with her then patient started became more unresponsive, having aphasia, nausea vomiting, dizziness, increasing left-sided weakness. EMS was called. Patient was brought to ED stroke alert. CT head revealed large posterior fossa ICH. 05/04: Remains sedated, orally intubated on mechanical ventilation. Underwent suboccipital decompression on 05/03. Ventriculostomy in place. ICPs below 10. Drained 150 cc CSF overnight 05/05: acutely this afternoon, her SBP increased from 150s to 200s. neuro exam unchanged, remains sedated on propofol without sedation vacation today per nsgy. pupillary exam unchanged, 2mm equal, reactive. required labetalol 60mg iv , esmolol 150mcg/kg/min, and cardene 15mg/hr to bring back down to goal SBP 150s. EVD still at 0 per nsgy. ICP in lateral ventricles 1. 05/06: severely hypertensive and febrile. re-cultured overnight. sputum growing GNR. 05/07: Patient remains hypertensive currently on nicardipine and esmolol infusions. Instructions given to titrated up nicardipine, start Norvasc 5 mg daily. Sputum culture with pansensitive Klebsiella. at the bedside updated 05/08: No improvement in neuro status. Continues to spike fever 103.3 MAXIMUM TEMPERATURE. Off nicardipine and esmolol. We'll start scheduled Tylenol and cooling blanket. repeat bruce culture 05/09: Continues to have persistent fever MAXIMUM TEMPERATURE 102, white count remains at 16,000. ID consulted also have ordered a lipase, US liver, venous ultrasound of all extremities. I will also change the central line, and give single dose of vancomycin 05/10: MAXIMUM TEMPERATURE is 102, but currently afebrile. Hemoglobin dropped to 6.8, WBC count 17.1. Sodium 152. Neuro exam remains unchanged. Venous ultrasound negative. Appreciate ID and GI consult. Started on Levophed 4 mcg/ min today 05/11: Tmax 101.4, but fever trending down. WBC 17. Hb 7.2. Transfuse 1U PRBC. Na 150. Off Levophed now, hypertensive. BP Labile. All cultures negative 05/12: Afebrile white count trending down 14,000 today. Restart her on Cardene infusion for hypotension. Plan for OR trach today by Dr. Mcfarlane 05/13: s/p trach yesterday. plan for IR to place G-J tube today. neurosurgery challenging EVD today- raised to 10. weaning sedation. poor neurologic exam persists. 05/14: EVD put out 90cc/24h at 10. no neuro improvements. 05/15: EVD put out 25cc/24h at 15. no neuro changes. Na slowly normalizing. also with significant yeast infection over back of neck. 05/16: EVD clamped at 08:30am. ICP stable. persistently poor neuro exam. Na continues to normalize. will trial CPAP today. 05/17: EVD remains clamped, ICP stable, CT head stable with mild ventricular enlargement. Neuro exam remains unchanged. Tolerated 3 hours C Pap yesterday, attempt 1-2 hours T piece trial yesterday 05/18: No significant events overnight. For RIP/M[employer]ATOR shunt tomorrow. Sodium normalized , will hold free water and restart when Na shows direction. 05/19: Back from OR after shunt. Stable hemodynamics, sats 97% 05/20: Shunt looks good on head CT. Ready for transfer to LTAC when OK with Neurosurgery. 05/21: Small left frontal SDH. Tolerating PSV. 05/22: Tolerating flow by / T-piece. Episodic hypertensive urgency. 05/23: Continues to tolerate flow-by tracheostomy ventilation. No neurological improvement. 05/24: Continuing long-term weaning trials. Last up to 12 hours. [facility] hs. 05/25: Continuing vent weaning. BP control much improved with additional scheduled meds. 05/26: Little neurological improvement. Breathing stronger. Objective Vital Signs Date Time Temp Pulse Resp B/P Pulse Ox O2 Delivery O2 Flow Rate FiO2 05/26/16 08:38 100 T-piece 40 05/26/16 06:00 68 05/26/16 04:00 99.1 18 126/59 05/25/16 09:36 5.00 Intake and Output 05/25/16 05/25/16 05/26/16 08:00 16:00 00:00 Intake Total 1229 ml 1382 ml 1398 ml Output Total 1100 ml 1100 ml 1400 ml Balance 129 ml 282 ml -2 ml Result Diagram: 05/22/16 0415 05/25/16 0335 Imaging Last [address] 05/03/16 0000 Signed Impressions: Service Date/Time: Tuesday, May 03, 2016 01:18 - CONCLUSION: Large acute posterior fossa hemorrhage. There is also blood in the fourth and third ventricles. Report was called to Dr. Rodrigues at 1:30 AM. Haim Anaya MD Chest X-Ray 05/03/16 0000 Signed Impressions: Service Date/Time: Tuesday, May 03, 2016 01:53 - CONCLUSION: 1. Endotracheal tube tip is about 1.5 cm above the luis antonio. 2. Nasogastric tube courses into the stomach. 3. Lungs reasonably clear. Haim Anaya MD Objective Remarks HEENT: Pupils reactive to light. Neck: Trach site clean. Dry. Chest/Pulm: On mech vent, good air entry bilaterally, no wheezing or crackles. Stronger on T-piece. CVS: S1-S2 regular, no murmur, No JVD. GI/abdomen: Soft, nontender, nondistended, bowel sounds present. No guarding. Extremities: Warm bilaterally, tr+ edema, well perfused. Neuro: Pupils reactive to light. Withdraws bilateral lower extremities to pain, upper extremities remains flaccid, breathes spontaneously. A/P Problem List: (1) Intracranial hemorrhage ICD Code: I62.9 Status: Acute (2) Respiratory failure with hypoxia ICD Code: J96.91 Status: Acute (3) Hypertension ICD Code: I10 Status: Acute (4) Atrial fibrillation ICD Code: I48.91 Status: Acute (5) Coagulopathy ICD Code: D68.9 Status: Acute (6) Diabetes ICD Code: E11.9 Status: Acute Assessment and Plan Neuro: Intracranial hemorrhagic stroke/large acute posterior fossa hemorrhage with intraventricular extension Acute encephalopathy - s/p posterior decompression on 05/04 - s/p hyperosmolar therapy. - EVD, monitor ICP. Keppra for seizure prophylaxis. Neurosurgery Dr. Chavez - EVD clamped yesterday, ICP remained stable, CT of the head remained stable except mild ventriculomegaly. EVD removal per Dr. Chavez - Scheduled Tylenol for fever - Haldol prn for agitation - oxycodone and hydromorphone for agitation or tachypnea/ vent synchrony - Trial dose of Provigil on 05/14 without effect. did not continue. --Permanent V-P shunt functioning well Resp: Acute hypoxic and hypercarbic Respiratory failure - Intubated for airway protection, continue mechanical ventilation. - SBT with 1- 2 hour trach trial today - s/p trach 05/[address] Dent - Aminatab `q 6 hour and PRN - T-piece trial daily - last 10 -12 hours CVS Hypertension - Continue labetalol to 200mg po q8h. - Holding amlodipine. - Hydralazine 20mg iv q20min and labetalol 20mg iv q1h for SBP >180 - Metoprolol 5mg iv q4h prn for HR > 100. - SBP goal <150, better controlled today. - rate controlled - Now on lisinopril, taper labetalol, continue lopressor HEME Coagulopathy - reversed Coumadin with Vit K, FFP and Kcentra on admission. ENDO DM -Levemir 50 units [id number]. High-dose sliding scale insulin. 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 - EGD/colonoscopy 03/15/15- no evidence of upper bleed, colonoscopy revealed active bleeding through out the colon with poor visualization. - S/P bleed scan 03/14/15- positive potentially duodenal. S/P Angiogram of GDA, right colic, ileocolic, and SMA - Rpt. Colonoscopy (03/17/15)---> Colonic polyp, rectal ulcer, indurated area in ascending colon biopsied -continue free water 300mL q4h per tube-reduce to 100ml q6 -serum Na normalizing slowly. - TF at goal, tolerated. -Lipase level acceptable 05/22 ID Persistent fever/leukocytosis-now fevere has resolved - Leukocytosis noted. bruce cultured-neg to date. Continue vancomycin Azactam and Levaquin, and Diflucan. ID Dr. Kin Adan. De-escalate therapy per Dr. Adan - Pansensitive Klebsiella in sputum -> resolved. DVT/GI prophylaxis - TEDs/SCDs/Pepcid OVERALL IMPRESSION: Now has permanent shunt. Minimal neuro improvement. Stronger respiratory effort, sustains T-piece for 1/2 day. Small left frontal SDH persists. Needs long-term vent weaning. Blood pressure control improved on new med additions. Aiming for LTAC soon. Problem Qualifiers (1) Respiratory failure with hypoxia: Qualified Code: J96.01 - Acute respiratory failure with hypoxia (2) Diabetes: Qualified Code: E11.8 - Type 2 diabetes mellitus with complication, unspecified care home insulin use status Dwight Harden MD May 26, 2016 12:02
[2016-05-26] MEDS: NS + KCL 20 MEQ INJ 1,000 ML IV SCH ×2 (14:21→23:37)
[2016-05-26] MEDS: FLUCONAZOLE 100 MG PREMIX BAG 50 ML IV SCH (14:32)
[2016-05-27] VITALS (18 sets, daily range): BP systolic 133–171; BP diastolic 63–81; PULSE 64–78; RESP 14–22; TEMP 98.2–99.7; O2SAT 95–100
[2016-05-27] MEDS: RESP: ALBUTEROL 2.5 MG/IPRATROPIUM 0.5 MG NEB (PRN) INH (00:22)
[2016-05-27] MEDS: levETIRAcetam INJ 500 MG in SODIUM CHLORIDE 0.9% INJ 100 ML IV SCH ×2 (01:12→12:30)
[2016-05-27] MEDS: oxyCODONE HCL ORAL CONC 20 MG/ML SYRINGE PO SCH ×6 (01:12→21:19)
[2016-05-27] MEDS: CHLORHEXIDINE GLUCONATE 2 % 1 PACK (2 CLOTHS) TOP SCH (03:27)
[2016-05-27] MEDS: LABETALOL HCL 100 MG/20 ML VIAL IVS PRN ×3 (03:32→12:45)
[2016-05-27] MEDS: INSULIN ASPART SUPPLEMENTAL SCALE SQ SCH ×6 (03:55→19:58)
[2016-05-27 05:05] LABS: BICARBONATE 28.9 MEQ/L (21.0-32.0); POTASSIUM 4.3 MEQ/L (3.5-5.1)
[2016-05-27] MEDS: LABETALOL HCL 200 MG TAB PO SCH ×3 (05:38→21:18)
[2016-05-27] MEDS: CHLORHEXIDINE 0.12% (ORAL KIT) 15 ML CUP MT SCH ×2 (07:49→20:09)
[2016-05-27] MEDS: SODIUM CHLORIDE 0.9% FLUSH 5 ML FLUSH IVF SCH ×2 (08:00→20:09)
[2016-05-27] MEDS: LISINOPRIL 20 MG TAB PO SCH ×2 (08:01→20:08)
[2016-05-27] MEDS: LACTULOSE SYRUP 20 GM/30 ML CUP PO SCH ×2 (08:01→19:52)
[2016-05-27] MEDS: ARTIFICIAL TEARS OPTH SOLN 15 ML BTL EACH EYE SCH ×3 (08:01→17:11)
[2016-05-27] MEDS: PANTOPRAZOLE SODIUM 40 MG VIAL IVP SCH (08:01)
[2016-05-27] MEDS: FAMOTIDINE 20 MG TAB PO SCH ×2 (08:01→20:08)
[2016-05-27] MEDS: METOPROLOL TARTRATE 100 MG TAB PO SCH ×2 (08:01→20:09)
[2016-05-27] MEDS: INSULIN DETEMIR 100 UNITS/ML VIAL SQ SCH ×2 (08:02→20:08)
[2016-05-27] MEDS: POLYETHYLENE GLYCOL 17 GM PKG PO SCH ×2 (08:02→19:52)
[2016-05-27] MEDS: DOCUSATE SODIUM 50 MG/SENNA 8.6 MG TAB PO SCH ×2 (08:02→19:52)
[2016-05-27] MEDS: BISACODYL 10 MG SUPP RECTAL SCH (08:02)
[2016-05-27] MEDS: NS + KCL 20 MEQ INJ 1,000 ML IV SCH ×2 (10:49→20:09)
[2016-05-27] MEDS: hydrALAZINE HCL 20 MG/ML VIAL IV PUSH PRN ×3 (12:30→22:26)
--- NOTE | 2016-05-27 13:02 | HHI.CCPN ---
Subjective Remarks/Hospital Course 05/03: 65 years old female was brought in by EMS for stroke alert. Patient has history of multiple strokes in the past. Patient has residual left-sided weakness from the strokes. Patient has an Antiphospholipid syndrome and is on Coumadin. Patient was sitting down watching TV with her then patient started became more unresponsive, having aphasia, nausea vomiting, dizziness, increasing left-sided weakness. EMS was called. Patient was brought to ED stroke alert. CT head revealed large posterior fossa ICH. 05/04: Remains sedated, orally intubated on mechanical ventilation. Underwent suboccipital decompression on 05/03. Ventriculostomy in place. ICPs below 10. Drained 150 cc CSF overnight 05/05: acutely this afternoon, her SBP increased from 150s to 200s. neuro exam unchanged, remains sedated on propofol without sedation vacation today per nsgy. pupillary exam unchanged, 2mm equal, reactive. required labetalol 60mg iv , esmolol 150mcg/kg/min, and cardene 15mg/hr to bring back down to goal SBP 150s. EVD still at 0 per nsgy. ICP in lateral ventricles 1. 05/06: severely hypertensive and febrile. re-cultured overnight. sputum growing GNR. 05/07: Patient remains hypertensive currently on nicardipine and esmolol infusions. Instructions given to titrated up nicardipine, start Norvasc 5 mg daily. Sputum culture with pansensitive Klebsiella. at the bedside updated 05/08: No improvement in neuro status. Continues to spike fever 103.3 MAXIMUM TEMPERATURE. Off nicardipine and esmolol. We'll start scheduled Tylenol and cooling blanket. repeat bruce culture 05/09: Continues to have persistent fever MAXIMUM TEMPERATURE 102, white count remains at 16,000. ID consulted also have ordered a lipase, US liver, venous ultrasound of all extremities. I will also change the central line, and give single dose of vancomycin 05/10: MAXIMUM TEMPERATURE is 102, but currently afebrile. Hemoglobin dropped to 6.8, WBC count 17.1. Sodium 152. Neuro exam remains unchanged. Venous ultrasound negative. Appreciate ID and GI consult. Started on Levophed 4 mcg/ min today 05/11: Tmax 101.4, but fever trending down. WBC 17. Hb 7.2. Transfuse 1U PRBC. Na 150. Off Levophed now, hypertensive. BP Labile. All cultures negative 05/12: Afebrile white count trending down 14,000 today. Restart her on Cardene infusion for hypotension. Plan for OR trach today by Dr. Mcfarlane 05/13: s/p trach yesterday. plan for IR to place G-J tube today. neurosurgery challenging EVD today- raised to 10. weaning sedation. poor neurologic exam persists. 05/14: EVD put out 90cc/24h at 10. no neuro improvements. 05/15: EVD put out 25cc/24h at 15. no neuro changes. Na slowly normalizing. also with significant yeast infection over back of neck. 05/16: EVD clamped at 08:30am. ICP stable. persistently poor neuro exam. Na continues to normalize. will trial CPAP today. 05/17: EVD remains clamped, ICP stable, CT head stable with mild ventricular enlargement. Neuro exam remains unchanged. Tolerated 3 hours C Pap yesterday, attempt 1-2 hours T piece trial yesterday 05/18: No significant events overnight. For PA[employer] shunt tomorrow. Sodium normalized , will hold free water and restart when Na shows direction. 05/19: Back from OR after shunt. Stable hemodynamics, sats 97% 05/20: Shunt looks good on head CT. Ready for transfer to LTAC when OK with Neurosurgery. 05/21: Small left frontal SDH. Tolerating PSV. 05/22: Tolerating flow by / T-piece. Episodic hypertensive urgency. 05/23: Continues to tolerate flow-by tracheostomy ventilation. No neurological improvement. 05/24: Continuing long-term weaning trials. Last up to 12 hours. [facility] hs. 05/25: Continuing vent weaning. BP control much improved with additional scheduled meds. 05/26: Little neurological improvement. Breathing stronger. 05/27: Continue weaning trials. Objective Vital Signs Date Time Temp Pulse Resp B/P Pulse Ox O2 Delivery O2 Flow Rate FiO2 05/27/16 10:00 78 05/27/16 08:26 98 T-piece 6.00 35 05/27/16 08:00 98.2 16 140/65 Intake and Output 05/26/16 05/26/16 05/27/16 08:00 16:00 00:00 Intake Total 1472 ml 1368 ml 1226 ml Output Total 1900 ml 1800 ml 1525 ml Balance -428 ml -432 ml -299 ml Result Diagram: 05/27/16 0353 Imaging Last [address] 05/03/16 0000 Signed Impressions: Service Date/Time: Tuesday, May 03, 2016 01:18 - CONCLUSION: Large acute posterior fossa hemorrhage. There is also blood in the fourth and third ventricles. Report was called to Dr. Rodrigues at 1:30 AM. Haim Anaya MD Chest X-Ray 05/03/16 0000 Signed Impressions: Service Date/Time: Tuesday, May 03, 2016 01:53 - CONCLUSION: 1. Endotracheal tube tip is about 1.5 cm above the luis antonio. 2. Nasogastric tube courses into the stomach. 3. Lungs reasonably clear. Haim Anaya MD Objective Remarks HEENT: Pupils reactive to light. Neck: Trach site clean. Dry. Chest/Pulm: Clear, no wheezing or crackles. . CVS: S1-S2 regular, no murmur, No JVD. GI/abdomen: Soft, nontender, nondistended, bowel sounds present. No guarding. Extremities: Warm bilaterally, tr+ edema, remains well perfused. Neuro: Pupils reactive to light. Withdraws bilateral lower extremities to pain. A/P Problem List: (1) Intracranial hemorrhage ICD Code: I62.9 Status: Acute (2) Respiratory failure with hypoxia ICD Code: J96.91 Status: Acute (3) Hypertension ICD Code: I10 Status: Acute (4) Atrial fibrillation ICD Code: I48.91 Status: Acute (5) Coagulopathy ICD Code: D68.9 Status: Acute (6) Diabetes ICD Code: E11.9 Status: Acute Assessment and Plan Neuro: Intracranial hemorrhagic stroke/large acute posterior fossa hemorrhage with intraventricular extension Acute encephalopathy - s/p posterior decompression on 05/04 - s/p hyperosmolar therapy. - EVD, monitor ICP. Keppra for seizure prophylaxis. Neurosurgery Dr. Chavez - EVD clamped yesterday, ICP remained stable, CT of the head remained stable except mild ventriculomegaly. EVD removal per Dr. hCavez - Scheduled Tylenol for fever - Haldol prn for agitation - oxycodone and hydromorphone for agitation or tachypnea/ vent synchrony - Trial dose of Provigil on 05/14 without effect. did not continue. --Permanent V-P shunt functioning well Resp: Acute hypoxic and hypercarbic Respiratory failure - Intubated for airway protection, continue mechanical ventilation. - SBT with 1- 2 hour trach trial today - s/p trach 05/[address] Dent - Aminatab `q 6 hour and PRN - T-piece trial daily - last 10 -12 hours CVS Hypertension - Continue labetalol to 200mg po q8h. - Holding amlodipine. - Hydralazine 20mg iv q20min and labetalol 20mg iv q1h for SBP >180 - Metoprolol 5mg iv q4h prn for HR > 100. - SBP goal <150, better controlled today. - rate controlled - Now on lisinopril, taper labetalol, continue lopressor HEME Coagulopathy - reversed Coumadin with Vit K, FFP and Kcentra on admission. ENDO DM -Levemir 50 units [id number]. High-dose sliding scale insulin. 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 - EGD/colonoscopy 03/15/15- no evidence of upper bleed, colonoscopy revealed active bleeding through out the colon with poor visualization. - S/P bleed scan 03/14/15- positive potentially duodenal. S/P Angiogram of GDA, right colic, ileocolic, and SMA - Rpt. Colonoscopy (03/17/15)---> Colonic polyp, rectal ulcer, indurated area in ascending colon biopsied -continue free water 300mL q4h per tube-reduce to 100ml q6 -serum Na normalizing slowly. - TF at goal, tolerated. -Lipase level acceptable 05/22 ID Persistent fever/leukocytosis-now fevere has resolved - Leukocytosis noted. bruce cultured-neg to date. Continue vancomycin Azactam and Levaquin, and Diflucan. ID Dr. Kin Adan. De-escalate therapy per Dr. Adan - Pansensitive Klebsiella in sputum -> resolved. DVT/GI prophylaxis - TEDs/SCDs/Pepcid OVERALL IMPRESSION: Now has permanent shunt. Stronger respiratory effort, sustains T-piece for 1/2 day. Needs long-term vent weaning. Blood pressure control improved. Aiming for LTAC soon. Problem Qualifiers (1) Respiratory failure with hypoxia: Qualified Code: J96.01 - Acute respiratory failure with hypoxia (2) Diabetes: Qualified Code: E11.8 - Type 2 diabetes mellitus with complication, unspecified senior living insulin use status Dwight Harden MD May 27, 2016 13:02
--- NOTE | 2016-05-27 13:36 | HHI.NSPN ---
(Bri Merchant) Note Status Status: Progress Note (Bri Merchant) Interval History Interval History This is a 65 year old female brought in by EMS as a stroke alert. She has history of multiple ischemic strokes in the past with residual left-sided weakness from the strokes. Patient has a history of Antiphospholipid syndrome and is on anticoagulated Coumadin. Apparently she was sitting down watching TV with her when she became unresponsive, with aphasia, nausea vomiting, dizziness, and increasing left-sided weakness. She is a known tyoe II diabetic and appears to be uncontrolled in ketoacidosis. EMS was called. She was brought to ED stroke alert. CT head revealed a posterior fossa ICH. She underwent emergen posterior fossa craniectomy with evacuation of cerebellar bleed and placement of ventriculostomy drain on 05/03/16. 05/04: well sedated. Pupils equal. EVD at 0 cm H20, ICPs below 10. 05/05: ICPs remains within normal limits, pupils equal, ventriculostomy draining well. 05/06: hypertensive, BP was up in the 200's systolic yesterday, on cardene. Currently running 150s. ICPs normal, EVD draining well. serum sodium 148. well sedated also for bp control. 05/07: intubated, sedated, pupils equal. EEG no ictal abnormalities. 05/10: EVD draining well, ICPs within normal limits. intubated and sedated on versed, no eye opening still. Fevers better, now with acute on chronic pancreatitis. CSF cultures pending. 05/11: no clinical changes, for trach/PEG today. 05/12: going for tracheostomy, ICPs wnl following raising of EVD to 5 cm yesterday 05/13: s/p tracheostomy placement, still on low dose Versed. positive cough/gag when suctioned, withdraws LE, pupils equal. still no report of eye opening or following commands. 05/17: challenging EVD, clamped over 24 hours,f/u CT Brain completed this am shows increase in ventricle size. No changes in neuro checks. 05/18: for ventriculoperitoenal shunt tomorrow, EVD draining well, ICPs within normal limits. 05/20: POD 1 s/p placement of PESTICIDE CONTROL INSPECTOR shunt, on CPAP, not tolerating t-piece. Slightly opens eyes but not following commands. 05/21: POD 2, less responsive today, not opening her eyes even to deep stimuli. 05/24: seen this am during rounds, POD 5 following PESTICIDE CONTROL INSPECTOR shunt placement, appears more awake, opening eyes more. in room. tolerating t-piece longer during the day. 05/25: appears more awake, eyes open, family at bedside reports she may have moved her toes this am to command. 05/26: focusing more today, no changes overnight 05/27: opening eyes to verbal stimuli, focusing, doing well on t-piece (Bri Merchant) Labs, Micro, & Vital Signs Results Date Time Temp Pulse Resp B/P Pulse Ox O2 Delivery O2 Flow Rate FiO2 05/27/16 12:00 71 05/27/16 12:00 35 05/27/16 10:00 78 05/27/16 08:26 98 T-piece 6.00 35 05/27/16 08:00 98.2 68 16 140/65 99 05/27/16 08:00 75 05/27/16 08:00 35 05/27/16 07:00 99 T-Piece 5.00 35 05/27/16 06:00 72 05/27/16 04:00 99.5 73 14 149/67 98 05/27/16 04:00 73 05/27/16 04:00 35 05/27/16 03:24 98 35 05/27/16 02:00 70 05/27/16 00:37 97 35 05/27/16 00:30 35 05/27/16 00:00 99.5 73 21 163/81 97 05/27/16 00:00 73 05/26/16 22:00 70 05/26/16 20:00 98.6 77 18 155/92 97 05/26/16 20:00 77 05/26/16 20:00 35 05/26/16 19:45 98 T-piece 5.00 35 05/26/16 19:00 97 T-Piece 35 05/26/16 18:00 78 05/26/16 16:10 98 T-piece 6.00 35 05/26/16 16:00 66 05/26/16 16:00 98.7 66 14 135/63 98 05/26/16 15:32 14 05/26/16 14:00 76 05/27/16 07:00 Intake Total 3870 ml Output Total 4925 ml Balance -1055 ml Constitutional Vital Signs Date Time Temp Pulse Resp B/P Pulse Ox O2 Delivery O2 Flow Rate FiO2 05/27/16 12:00 71 05/27/16 12:00 35 05/27/16 10:00 78 05/27/16 08:26 98 T-piece 6.00 35 05/27/16 08:00 98.2 68 16 140/65 99 05/27/16 08:00 75 05/27/16 08:00 35 05/27/16 07:00 99 T-Piece 5.00 35 05/27/16 06:00 72 05/27/16 04:00 99.5 73 14 149/67 98 05/27/16 04:00 73 05/27/16 04:00 35 05/27/16 03:24 98 35 05/27/16 02:00 70 05/27/16 00:37 97 35 05/27/16 00:30 35 05/27/16 00:00 99.5 73 21 163/81 97 05/27/16 00:00 73 05/26/16 22:00 70 05/26/16 20:00 98.6 77 18 155/92 97 05/26/16 20:00 77 05/26/16 20:00 35 05/26/16 19:45 98 T-piece 5.00 35 05/26/16 19:00 97 T-Piece 35 05/26/16 18:00 78 05/26/16 16:10 98 T-piece 6.00 35 05/26/16 16:00 66 05/26/16 16:00 98.7 66 14 135/63 98 05/26/16 15:32 14 05/26/16 14:00 76 05/27/16 07:00 Intake Total 3870 ml Output Total 4925 ml Balance -1055 ml (Bri Merchant) Review of Systems/Exam ROS cannot obtain due to clinical condition Exam Eyes open to verbal stimuli, focused on me today. Left PESTICIDE CONTROL INSPECTOR shunt palpated with good bubble rebound. Surgical wounds healing well. CN: pupils equal, facial appears grossly symmetric at rest Motor: withdraws both legs to local stimuli, on PODUS boots Neck: tracheostomy Respiratory: on t-piece, clear Cannot assess cerebellar exam due to clinical condition (Bri Merchant) Medications Current Medications Current Medications Medications (Trade) Dose Ordered Sig/Michelle Route PRN Reason Start Time Stop Time Status Last Admin Dose Admin Artificial Tears (Tears Naturale Opth Soln) 1 drop TID EACH EYE 05/03/16 09:00 05/27/16 12:30 Ondansetron HCl (Zofran Inj) 4 mg Q6H PRN IV NAUSEA OR VOMITING 05/03/16 04:30 Miscellaneous Information 1 Q361D XX 05/03/16 04:30 05/03/16 04:30 IV Flush (NS Flush) 2 ml UNSCH PRN IVF FLUSH AFTER USING IV ACCESS 05/03/16 12:30 05/26/16 00:03 IV Flush 2 ml 2 ml BID IVF 05/03/16 21:00 05/27/16 08:00 Levetriacetam/ Sodium Chloride (Keppra Inj/NS Inj) 105 ml @ 400 mls/hr Q12H IV 05/03/16 13:00 05/27/16 12:30 Calcium Gluconate 1 gm 1 gm UNSCH PRN IV SEE LABEL COMMENTS 05/03/16 12:30 Potassium Chloride 100 ml @ 50 mls/hr UNSCH PRN IV POTASSIUM LESS THAN 4 05/03/16 12:30 05/04/16 06:56 Magnesium Sulfate/ Sodium Chloride (Magnesium Sulfate Inj/NS Inj) 108 ml @ 108 mls/hr UNSCH PRN IV MAGNESIUM LESS THAN 2 05/03/16 12:30 Acetaminophen 650 mg 650 mg Q4H PRN PO TEMPERATURE > 101.5 F 05/03/16 12:30 05/08/16 10:38 Potassium Chloride 100 ml @ 50 mls/hr Q2H PRN IV For Potassium 2.8 - 3.2 mEq/L 05/04/16 08:45 Potassium Chloride (KCl 20 Meq Premix Inj) 100 ml @ 50 mls/hr Q2H PRN IV For Potassium 2.8 - 3.2 mEq/L 05/04/16 08:45 Potassium Chloride 40 meq 40 meq UNSCH PRN PO/TUBE For Potassium 3.3 - 3.5 mEq/L 05/04/16 08:45 Potassium Chloride 100 ml @ 25 mls/hr UNSCH PRN IV For Potassium 3.3 - 3.5 mEq/L 05/04/16 08:45 Potassium Chloride 100 ml @ 50 mls/hr Q2H PRN IV For Potassium 3.3 - 3.5 mEq/L 05/04/16 08:45 Magnesium Sulfate/ Sodium Chloride (Magnesium Sulfate Inj/NS Inj) 100 ml @ 50 mls/hr UNSCH PRN IV For Magnesium 0.9 - 1.1 mg/dL 05/04/16 08:45 Magnesium Oxide 800 mg 800 mg UNSCH PRN PO For Magnesium 1.2 - 1.6 mg/dL 05/04/16 08:45 Magnesium Sulfate/ Sodium Chloride (Magnesium Sulfate Inj/NS Inj) 100 ml @ 50 mls/hr UNSCH PRN IV For Magnesium 1.2 - 1.6 mg/dL 05/04/16 08:45 Potassium Phosphate 2000 mg 2,000 mg Q4H PRN PO For Phosphorus < 2.5 mg/dL 05/04/16 08:45 Sodium Phosphate/ Sodium Chloride (Sodium Phosphate Inj/NS 250 ml Inj) 250 ml @ 42 mls/hr UNSCH PRN IV For Phosphorus < 2.5 mg/dL 05/04/16 08:45 Potassium Chloride (KCl 40 Meq/30 ml Liq) 40 meq UNSCH PRN PO/TUBE SEE LABEL COMMENTS 05/04/16 08:45 Potassium Phosphate 2000 mg 2,000 mg UNSCH PRN PO/TUBE SEE LABEL COMMENTS 05/04/16 08:45 Potassium Phosphate/Sodium Chloride (Potassium Phosphate Inj/NS 250 ml Inj) 260 ml @ 42 mls/hr UNSCH PRN IV SEE LABEL COMMENTS 05/04/16 08:45 Insulin Aspart (NovoLOG SUPPLEMENTAL SCALE) 1 Q4HR SQ 05/04/16 12:00 05/27/16 03:55 Dextrose (D50w (Vial) Inj) 25 ml UNSCH PRN IV HYPOGLYCEMIA-SEE COMMENTS 05/04/16 08:45 05/23/16 04:15 Glucagon (Glucagon Inj) 1 mg UNSCH PRN IM/SQ HYPOGLYCEMIA-SEE COMMENTS 05/04/16 08:45 Insulin Detemir (Levemir Inj) 50 units Q12HR SQ 05/06/16 21:00 05/27/16 08:02 Labetalol HCl (Trandate Inj) 20 mg Q1H PRN IVS SBP greater than 160mm Hg 05/06/16 10:00 05/27/16 12:45 Metoprolol Tartrate (Lopressor Inj) 5 mg Q4H PRN IV PUSH HR > 100 05/06/16 11:00 05/22/16 12:28 Bisacodyl (Dulcolax Supp) 10 mg DAILY RECTAL 05/07/16 09:55 05/16/16 08:24 Polyethylene Glycol (Miralax) 17 gm BID PO 05/06/16 09:55 05/25/16 20:17 Lactulose (Lactulose Liq) 30 ml BID PO 05/06/16 11:00 05/24/16 09:00 Senna/Docusate Sodium (Meaghan-Colace) 1 tab BID PO 05/06/16 10:00 05/25/16 20:17 Miscellaneous (Pill Splitter) 1 ea UNSCH PRN OTHER SEE LABEL COMMENTS 05/06/16 21:00 Amlodipine Besylate (Norvasc) 10 mg DAILY PO 05/09/16 09:00 Hold Hydromorphone HCl (Dilaudid Pf Inj) 0.5 mg Q4H PRN IV PUSH pain 8-10 or not taking po 05/13/16 09:30 05/24/16 10:25 Oxycodone HCl (Roxicodone Intensol Liq) 5 mg Q4H PO 05/13/16 10:00 05/27/16 05:39 Haloperidol Lactate (Haldol Inj) 5 mg Q4H PRN IV agitation 05/13/16 09:30 Famotidine 20 mg 20 mg BID PO 05/14/16 21:00 05/27/16 08:01 Fluconazole/ Sodium Chloride 50 ml @ 50 mls/hr Q24H IV 05/18/16 14:00 05/26/16 14:32 Potassium Chloride/Sodium Chloride (NS + KCl 20 Meq Inj) 1,000 ml @ 100 mls/hr Q10H IV 05/19/16 10:59 05/27/16 10:49 Pantoprazole Sodium (Protonix Inj) 40 mg DAILY IVP 05/20/16 09:00 05/27/16 08:01 Chlorhexidine Gluconate (Peridex 0.12% Liq) 15 ml BID@08,20 MT 05/19/16 20:00 05/27/16 07:49 Miscellaneous Information 1 Q361D XX 05/19/16 14:15 Chlorhexidine Gluconate (Chlorhexidine 2% Cloth) Taper DAILY@04 TOP 05/20/16 04:00 05/16/17 03:59 05/24/16 06:08 Chlorhexidine Gluconate (Chlorhexidine 2% Cloth) 3 pack UNSCH PRN TOP HYGIENIC CARE 05/19/16 14:15 Labetalol HCl (Trandate) 200 mg Q8HR PO 05/22/16 14:00 05/27/16 05:38 Hydralazine HCl (Apresoline Inj) 20 mg Q30M PRN IV PUSH SYS BP GREATER THAN 150 MMHG 05/24/16 12:30 05/27/16 12:46 Lisinopril (Prinivil) 20 mg Q12HR PO 05/24/16 21:00 05/27/16 08:01 Metoprolol Tartrate (Lopressor) 100 mg Q12HR PO 05/24/16 21:00 05/27/16 08:01 Furosemide (Lasix Inj) 20 mg DAILY IV PUSH 05/27/16 13:00 (Bri Merchant) Medical Decision Making MDM Remarks 65 y/o female with cerebellar bleed s/p posterior fossa craniectomy with evacuation of hematoma, neuro slowly improving hydrocephalus following clamping of EVD, s/p placement of ventriculoperitoneal shunt 05/19/16 CT Brain 05/21 with small acute on chronic left SDH, shunt pressure raised to 160 mm H20 (Bri Merchant) Plan Plan Remarks doing well, cont current care (Bri Merchant) Attending Statement The exam, history, and the medical decision-making described in the above note were completed with the assistance of the mid-level provider. I reviewed and agree with the findings presented. I attest that I had a [id number] encounter with the patient on the same day, and personally performed and documented my assessment and findings in the medical record. (Oumar Chavez MD) Bri Merchant May 27, 2016 13:36 Oumar Chavez MD May 29, 2016 18:22
[2016-05-27] MEDS: FUROSEMIDE 20 MG/2 ML VIAL IV PUSH SCH (13:56)
[2016-05-27] MEDS: FLUCONAZOLE 100 MG PREMIX BAG 50 ML IV SCH (13:56)
[2016-05-28] VITALS (18 sets, daily range): BP systolic 119–182; BP diastolic 58–77; PULSE 62–82; RESP 14–26; TEMP 98.2–100.6; O2SAT 95–100
[2016-05-28] MEDS: levETIRAcetam INJ 500 MG in SODIUM CHLORIDE 0.9% INJ 100 ML IV SCH ×2 (01:29→13:45)
[2016-05-28] MEDS: oxyCODONE HCL ORAL CONC 20 MG/ML SYRINGE PO SCH ×6 (02:07→22:02)
[2016-05-28] MEDS: hydrALAZINE HCL 20 MG/ML VIAL IV PUSH PRN ×3 (02:07→17:36)
[2016-05-28] MEDS: INSULIN ASPART SUPPLEMENTAL SCALE SQ SCH ×5 (04:00→17:22)
[2016-05-28] MEDS: CHLORHEXIDINE GLUCONATE 2 % 1 PACK (2 CLOTHS) TOP SCH (04:00)
[2016-05-28] MEDS: NS + KCL 20 MEQ INJ 1,000 ML IV SCH ×3 (04:59→20:54)
[2016-05-28] MEDS: LABETALOL HCL 200 MG TAB PO SCH ×3 (05:42→22:02)
--- NOTE | 2016-05-28 06:12 | PQ ---
Physician Query Response Document PATIENT: WILLEM MARTE : 1950 ADMIT DATE: 05/03/2016 2:06 AM DISCH DATE: RESPONDING PROVIDER #: zahida QUERY TEXT: Clinical Validity A documented condition of PNEUMONIA is noted in the medical record. Please also document if the condition is: -- Confirmed and current -- Confirmed, treated and resolved -- Ruled out -- Other (please specify) The patient's Clinical Indicators include: 05/03 EMS Stroke alert ICH Rapid sequence intubation in ER and taken to surgery Underwent suboccipital decompression on 05/03. Ventriculostomy per ID PER INITIAL CONSULT noted patient started spiking temp 05/04w persistent fevers 05/04 Pansensitive Klebsiella in sputum. patient had witnessed aspiration event in OR per nursing repo rt. Previous pneumonia due to Klebsiella. Query created by: Corazon Vaz on 05/26/2016 12:11 PM RESPONSE TEXT: Pneumonia. Electronically signed by: Genaro Harden MD 05/28/2016 6:08 AM
[2016-05-28] MEDS: POLYETHYLENE GLYCOL 17 GM PKG PO SCH ×2 (07:35→20:39)
[2016-05-28] MEDS: SODIUM CHLORIDE 0.9% FLUSH 5 ML FLUSH IVF SCH ×2 (07:35→20:43)
[2016-05-28] MEDS: DOCUSATE SODIUM 50 MG/SENNA 8.6 MG TAB PO SCH ×2 (07:35→20:39)
[2016-05-28] MEDS: LACTULOSE SYRUP 20 GM/30 ML CUP PO SCH ×2 (07:35→20:38)
[2016-05-28] MEDS: BISACODYL 10 MG SUPP RECTAL SCH (07:36)
[2016-05-28] MEDS: ARTIFICIAL TEARS OPTH SOLN 15 ML BTL EACH EYE SCH ×3 (08:31→17:36)
[2016-05-28] MEDS: LISINOPRIL 20 MG TAB PO SCH ×2 (08:31→20:43)
[2016-05-28] MEDS: INSULIN DETEMIR 100 UNITS/ML VIAL SQ SCH ×2 (08:31→20:38)
[2016-05-28] MEDS: PANTOPRAZOLE SODIUM 40 MG VIAL IVP SCH (08:31)
[2016-05-28] MEDS: METOPROLOL TARTRATE 100 MG TAB PO SCH ×2 (08:32→20:43)
[2016-05-28] MEDS: FAMOTIDINE 20 MG TAB PO SCH ×2 (08:32→20:43)
[2016-05-28] MEDS: FUROSEMIDE 20 MG/2 ML VIAL IV PUSH SCH (08:33)
[2016-05-28] MEDS: CHLORHEXIDINE 0.12% (ORAL KIT) 15 ML CUP MT SCH ×2 (08:34→20:00)
--- NOTE | 2016-05-28 10:14 | HHI.NSPN ---
Note Status Status: Progress Note Interval History Interval History This is a 65 year old female brought in by EMS as a stroke alert. She has history of multiple ischemic strokes in the past with residual left-sided weakness from the strokes. Patient has a history of Antiphospholipid syndrome and is on anticoagulated Coumadin. Apparently she was sitting down watching TV with her when she became unresponsive, with aphasia, nausea vomiting, dizziness, and increasing left-sided weakness. She is a known tyoe II diabetic and appears to be uncontrolled in ketoacidosis. EMS was called. She was brought to ED stroke alert. CT head revealed a posterior fossa ICH. She underwent emergen posterior fossa craniectomy with evacuation of cerebellar bleed and placement of ventriculostomy drain on 05/03/16. 05/04: well sedated. Pupils equal. EVD at 0 cm H20, ICPs below 10. 05/05: ICPs remains within normal limits, pupils equal, ventriculostomy draining well. 05/06: hypertensive, BP was up in the 200's systolic yesterday, on cardene. Currently running 150s. ICPs normal, EVD draining well. serum sodium 148. well sedated also for bp control. 05/07: intubated, sedated, pupils equal. EEG no ictal abnormalities. 05/10: EVD draining well, ICPs within normal limits. intubated and sedated on versed, no eye opening still. Fevers better, now with acute on chronic pancreatitis. CSF cultures pending. 05/11: no clinical changes, for trach/PEG today. 05/12: going for tracheostomy, ICPs wnl following raising of EVD to 5 cm yesterday 05/13: s/p tracheostomy placement, still on low dose Versed. positive cough/gag when suctioned, withdraws LE, pupils equal. still no report of eye opening or following commands. 05/17: challenging EVD, clamped over 24 hours,f/u CT Brain completed this am shows increase in ventricle size. No changes in neuro checks. 05/18: for ventriculoperitoenal shunt tomorrow, EVD draining well, ICPs within normal limits. 05/20: POD 1 s/p placement of JUKE BOX SERVICER shunt, on CPAP, not tolerating t-piece. Slightly opens eyes but not following commands. 05/21: POD 2, less responsive today, not opening her eyes even to deep stimuli. 05/24: seen this am during rounds, POD 5 following JUKE BOX SERVICER shunt placement, appears more awake, opening eyes more. in room. tolerating t-piece longer during the day. 05/25: appears more awake, eyes open, family at bedside reports she may have moved her toes this am to command. 05/26: focusing more today, no changes overnight 05/27: opening eyes to verbal stimuli, focusing, doing well on t-piece 05/28: grimacing when suctioned, focusing to the right and left to voice. Labs, Micro, & Vital Signs Results Date Time Temp Pulse Resp B/P Pulse Ox O2 Delivery O2 Flow Rate FiO2 05/28/16 10:00 62 05/28/16 09:50 40 05/28/16 09:42 97 T-piece 40 05/28/16 08:00 35 05/28/16 08:00 98.9 63 19 119/58 95 05/28/16 08:00 63 05/28/16 07:54 96 35 05/28/16 07:00 97 Mechanical Ventilator 35 05/28/16 06:00 67 05/28/16 04:00 66 05/28/16 04:00 35 05/28/16 04:00 98.2 66 14 131/62 100 05/28/16 03:32 98 35 05/28/16 02:00 73 05/28/16 00:10 98 35 05/28/16 00:00 70 05/28/16 00:00 35 05/28/16 00:00 100.6 70 18 122/59 98 05/27/16 22:00 64 05/27/16 20:00 35 05/27/16 20:00 72 05/27/16 20:00 99.7 72 17 171/75 99 05/27/16 19:39 98 35 05/27/16 19:00 97 Mechanical Ventilator 35 05/27/16 18:00 69 05/27/16 16:13 99 35 05/27/16 16:00 99.1 70 22 133/63 97 05/27/16 16:00 35 05/27/16 16:00 70 05/27/16 14:00 71 05/27/16 13:32 97 35 05/27/16 12:00 98.4 70 19 170/73 95 05/27/16 12:00 71 05/27/16 12:00 35 05/28/16 07:00 Intake Total 3869 ml Output Total 5650 ml Balance -1781 ml Constitutional Vital Signs Date Time Temp Pulse Resp B/P Pulse Ox O2 Delivery O2 Flow Rate FiO2 05/28/16 10:00 62 05/28/16 09:50 40 05/28/16 09:42 97 T-piece 40 05/28/16 08:00 35 05/28/16 08:00 98.9 63 19 119/58 95 05/28/16 08:00 63 05/28/16 07:54 96 35 05/28/16 07:00 97 Mechanical Ventilator 35 05/28/16 06:00 67 05/28/16 04:00 66 05/28/16 04:00 35 05/28/16 04:00 98.2 66 14 131/62 100 05/28/16 03:32 98 35 05/28/16 02:00 73 05/28/16 00:10 98 35 05/28/16 00:00 70 05/28/16 00:00 35 05/28/16 00:00 100.6 70 18 122/59 98 05/27/16 22:00 64 05/27/16 20:00 35 05/27/16 20:00 72 05/27/16 20:00 99.7 72 17 171/75 99 05/27/16 19:39 98 35 05/27/16 19:00 97 Mechanical Ventilator 35 05/27/16 18:00 69 05/27/16 16:13 99 35 05/27/16 16:00 99.1 70 22 133/63 97 05/27/16 16:00 35 05/27/16 16:00 70 05/27/16 14:00 71 05/27/16 13:32 97 35 05/27/16 12:00 98.4 70 19 170/73 95 05/27/16 12:00 71 05/27/16 12:00 35 05/28/16 07:00 Intake Total 3869 ml Output Total 5650 ml Balance -1781 ml Review of Systems/Exam ROS cannot obtain due to clinical condition Exam Eyes open to verbal stimuli, focused to her right and left today to voice. Grimaced when suctioned Left JUKE BOX SERVICER shunt palpated with good bubble rebound. Surgical wounds healing well. CN: pupils equal, facial appears grossly symmetric at rest Motor: withdraws both legs to local stimuli, on PODUS boots Neck: tracheostomy Respiratory: clear, currently on CPAP Cannot assess cerebellar exam due to clinical condition Medications Current Medications Current Medications Medications (Trade) Dose Ordered Sig/Michelle Route PRN Reason Start Time Stop Time Status Last Admin Dose Admin Artificial Tears (Tears Naturale Opth Soln) 1 drop TID EACH EYE 05/03/16 09:00 05/28/16 08:31 Ondansetron HCl (Zofran Inj) 4 mg Q6H PRN IV NAUSEA OR VOMITING 05/03/16 04:30 Miscellaneous Information 1 Q361D XX 05/03/16 04:30 05/03/16 04:30 IV Flush (NS Flush) 2 ml UNSCH PRN IVF FLUSH AFTER USING IV ACCESS 05/03/16 12:30 05/26/16 00:03 IV Flush 2 ml 2 ml BID IVF 05/03/16 21:00 05/27/16 20:09 Levetriacetam/ Sodium Chloride (Keppra Inj/NS Inj) 105 ml @ 400 mls/hr Q12H IV 05/03/16 13:00 05/28/16 01:29 Calcium Gluconate 1 gm 1 gm UNSCH PRN IV SEE LABEL COMMENTS 05/03/16 12:30 Potassium Chloride 100 ml @ 50 mls/hr UNSCH PRN IV POTASSIUM LESS THAN 4 05/03/16 12:30 05/04/16 06:56 Magnesium Sulfate/ Sodium Chloride (Magnesium Sulfate Inj/NS Inj) 108 ml @ 108 mls/hr UNSCH PRN IV MAGNESIUM LESS THAN 2 05/03/16 12:30 Acetaminophen 650 mg 650 mg Q4H PRN PO TEMPERATURE > 101.5 F 05/03/16 12:30 05/08/16 10:38 Potassium Chloride 100 ml @ 50 mls/hr Q2H PRN IV For Potassium 2.8 - 3.2 mEq/L 05/04/16 08:45 Potassium Chloride (KCl 20 Meq Premix Inj) 100 ml @ 50 mls/hr Q2H PRN IV For Potassium 2.8 - 3.2 mEq/L 05/04/16 08:45 Potassium Chloride 40 meq 40 meq UNSCH PRN PO/TUBE For Potassium 3.3 - 3.5 mEq/L 05/04/16 08:45 Potassium Chloride 100 ml @ 25 mls/hr UNSCH PRN IV For Potassium 3.3 - 3.5 mEq/L 05/04/16 08:45 Potassium Chloride 100 ml @ 50 mls/hr Q2H PRN IV For Potassium 3.3 - 3.5 mEq/L 05/04/16 08:45 Magnesium Sulfate/ Sodium Chloride (Magnesium Sulfate Inj/NS Inj) 100 ml @ 50 mls/hr UNSCH PRN IV For Magnesium 0.9 - 1.1 mg/dL 05/04/16 08:45 Magnesium Oxide 800 mg 800 mg UNSCH PRN PO For Magnesium 1.2 - 1.6 mg/dL 05/04/16 08:45 Magnesium Sulfate/ Sodium Chloride (Magnesium Sulfate Inj/NS Inj) 100 ml @ 50 mls/hr UNSCH PRN IV For Magnesium 1.2 - 1.6 mg/dL 05/04/16 08:45 Potassium Phosphate 2000 mg 2,000 mg Q4H PRN PO For Phosphorus < 2.5 mg/dL 05/04/16 08:45 Sodium Phosphate/ Sodium Chloride (Sodium Phosphate Inj/NS 250 ml Inj) 250 ml @ 42 mls/hr UNSCH PRN IV For Phosphorus < 2.5 mg/dL 05/04/16 08:45 Potassium Chloride (KCl 40 Meq/30 ml Liq) 40 meq UNSCH PRN PO/TUBE SEE LABEL COMMENTS 05/04/16 08:45 Potassium Phosphate 2000 mg 2,000 mg UNSCH PRN PO/TUBE SEE LABEL COMMENTS 05/04/16 08:45 Potassium Phosphate/Sodium Chloride (Potassium Phosphate Inj/NS 250 ml Inj) 260 ml @ 42 mls/hr UNSCH PRN IV SEE LABEL COMMENTS 05/04/16 08:45 Insulin Aspart (NovoLOG SUPPLEMENTAL SCALE) 1 Q4HR SQ 05/04/16 12:00 05/27/16 03:55 Dextrose (D50w (Vial) Inj) 25 ml UNSCH PRN IV HYPOGLYCEMIA-SEE COMMENTS 05/04/16 08:45 05/23/16 04:15 Glucagon (Glucagon Inj) 1 mg UNSCH PRN IM/SQ HYPOGLYCEMIA-SEE COMMENTS 05/04/16 08:45 Insulin Detemir (Levemir Inj) 50 units Q12HR SQ 05/06/16 21:00 05/28/16 08:31 Labetalol HCl (Trandate Inj) 20 mg Q1H PRN IVS SBP greater than 160mm Hg 05/06/16 10:00 05/27/16 12:45 Metoprolol Tartrate (Lopressor Inj) 5 mg Q4H PRN IV PUSH HR > 100 05/06/16 11:00 05/22/16 12:28 Bisacodyl (Dulcolax Supp) 10 mg DAILY RECTAL 05/07/16 09:55 05/16/16 08:24 Polyethylene Glycol (Miralax) 17 gm BID PO 05/06/16 09:55 05/25/16 20:17 Lactulose (Lactulose Liq) 30 ml BID PO 05/06/16 11:00 05/24/16 09:00 Senna/Docusate Sodium (Meaghan-Colace) 1 tab BID PO 05/06/16 10:00 05/25/16 20:17 Miscellaneous (Pill Splitter) 1 ea UNSCH PRN OTHER SEE LABEL COMMENTS 05/06/16 21:00 Amlodipine Besylate (Norvasc) 10 mg DAILY PO 05/09/16 09:00 Hold Hydromorphone HCl (Dilaudid Pf Inj) 0.5 mg Q4H PRN IV PUSH pain 8-10 or not taking po 05/13/16 09:30 05/24/16 10:25 Oxycodone HCl (Roxicodone Intensol Liq) 5 mg Q4H PO 05/13/16 10:00 05/28/16 02:07 Haloperidol Lactate (Haldol Inj) 5 mg Q4H PRN IV agitation 05/13/16 09:30 05/27/16 17:10 Famotidine 20 mg 20 mg BID PO 05/14/16 21:00 05/28/16 08:32 Fluconazole/ Sodium Chloride 50 ml @ 50 mls/hr Q24H IV 05/18/16 14:00 05/27/16 13:56 Potassium Chloride/Sodium Chloride (NS + KCl 20 Meq Inj) 1,000 ml @ 100 mls/hr Q10H IV 05/19/16 10:59 05/28/16 08:30 Pantoprazole Sodium (Protonix Inj) 40 mg DAILY IVP 05/20/16 09:00 05/28/16 08:31 Chlorhexidine Gluconate (Peridex 0.12% Liq) 15 ml BID@08,20 MT 05/19/16 20:00 05/28/16 08:34 Miscellaneous Information 1 Q361D XX 05/19/16 14:15 Chlorhexidine Gluconate (Chlorhexidine 2% Cloth) Taper DAILY@04 TOP 05/20/16 04:00 05/16/17 03:59 05/24/16 06:08 Chlorhexidine Gluconate (Chlorhexidine 2% Cloth) 3 pack UNSCH PRN TOP HYGIENIC CARE 05/19/16 14:15 Labetalol HCl (Trandate) 200 mg Q8HR PO 05/22/16 14:00 05/28/16 05:42 Hydralazine HCl (Apresoline Inj) 20 mg Q30M PRN IV PUSH SYS BP GREATER THAN 150 MMHG 05/24/16 12:30 05/28/16 02:07 Lisinopril (Prinivil) 20 mg Q12HR PO 05/24/16 21:00 05/28/16 08:31 Metoprolol Tartrate (Lopressor) 100 mg Q12HR PO 05/24/16 21:00 05/28/16 08:32 Furosemide (Lasix Inj) 20 mg DAILY IV PUSH 05/27/16 13:00 05/28/16 08:33 Medical Decision Making MDM Remarks 65 y/o female with cerebellar bleed s/p posterior fossa craniectomy with evacuation of hematoma, neuro slowly improving hydrocephalus following clamping of EVD, s/p placement of ventriculoperitoneal shunt 05/19/16 CT Brain 05/21 with small acute on chronic left SDH, shunt pressure raised to 160 mm H20 Plan Plan Remarks doing well, neuro slowly improving to LTAC soon cont current care Bri Merchant May 28, 2016 10:14
[2016-05-28] MEDS: FLUCONAZOLE 100 MG PREMIX BAG 50 ML IV SCH (13:46)
--- NOTE | 2016-05-28 14:43 | HHI.CCPN ---
Subjective Remarks/Hospital Course 05/03: 65 years old female was brought in by EMS for stroke alert. Patient has history of multiple strokes in the past. Patient has residual left-sided weakness from the strokes. Patient has an Antiphospholipid syndrome and is on Coumadin. Patient was sitting down watching TV with her then patient started became more unresponsive, having aphasia, nausea vomiting, dizziness, increasing left-sided weakness. EMS was called. Patient was brought to ED stroke alert. CT head revealed large posterior fossa ICH. 05/04: Remains sedated, orally intubated on mechanical ventilation. Underwent suboccipital decompression on 05/03. Ventriculostomy in place. ICPs below 10. Drained 150 cc CSF overnight 05/05: acutely this afternoon, her SBP increased from 150s to 200s. neuro exam unchanged, remains sedated on propofol without sedation vacation today per nsgy. pupillary exam unchanged, 2mm equal, reactive. required labetalol 60mg iv , esmolol 150mcg/kg/min, and cardene 15mg/hr to bring back down to goal SBP 150s. EVD still at 0 per nsgy. ICP in lateral ventricles 1. 05/06: severely hypertensive and febrile. re-cultured overnight. sputum growing GNR. 05/07: Patient remains hypertensive currently on nicardipine and esmolol infusions. Instructions given to titrated up nicardipine, start Norvasc 5 mg daily. Sputum culture with pansensitive Klebsiella. at the bedside updated 05/08: No improvement in neuro status. Continues to spike fever 103.3 MAXIMUM TEMPERATURE. Off nicardipine and esmolol. We'll start scheduled Tylenol and cooling blanket. repeat bruce culture 05/09: Continues to have persistent fever MAXIMUM TEMPERATURE 102, white count remains at 16,000. ID consulted also have ordered a lipase, US liver, venous ultrasound of all extremities. I will also change the central line, and give single dose of vancomycin 05/10: MAXIMUM TEMPERATURE is 102, but currently afebrile. Hemoglobin dropped to 6.8, WBC count 17.1. Sodium 152. Neuro exam remains unchanged. Venous ultrasound negative. Appreciate ID and GI consult. Started on Levophed 4 mcg/ min today 05/11: Tmax 101.4, but fever trending down. WBC 17. Hb 7.2. Transfuse 1U PRBC. Na 150. Off Levophed now, hypertensive. BP Labile. All cultures negative 05/12: Afebrile white count trending down 14,000 today. Restart her on Cardene infusion for hypotension. Plan for OR trach today by Dr. Mcfarlane 05/13: s/p trach yesterday. plan for IR to place G-J tube today. neurosurgery challenging EVD today- raised to 10. weaning sedation. poor neurologic exam persists. 05/14: EVD put out 90cc/24h at 10. no neuro improvements. 05/15: EVD put out 25cc/24h at 15. no neuro changes. Na slowly normalizing. also with significant yeast infection over back of neck. 05/16: EVD clamped at 08:30am. ICP stable. persistently poor neuro exam. Na continues to normalize. will trial CPAP today. 05/17: EVD remains clamped, ICP stable, CT head stable with mild ventricular enlargement. Neuro exam remains unchanged. Tolerated 3 hours C Pap yesterday, attempt 1-2 hours T piece trial yesterday 05/18: No significant events overnight. For SANITIZER shunt tomorrow. Sodium normalized , will hold free water and restart when Na shows direction. 05/19: Back from OR after shunt. Stable hemodynamics, sats 97% 05/20: Shunt looks good on head CT. Ready for transfer to LTAC when OK with Neurosurgery. 05/21: Small left frontal SDH. Tolerating PSV. 05/22: Tolerating flow by / T-piece. Episodic hypertensive urgency. 05/23: Continues to tolerate flow-by tracheostomy ventilation. No neurological improvement. 05/24: Continuing long-term weaning trials. Last up to 12 hours. [facility] hs. 05/25: Continuing vent weaning. BP control much improved with additional scheduled meds. 05/26: Little neurological improvement. Breathing stronger. 05/27: Continue weaning trials. 05/27: Continue weaning trials. Objective Vital Signs Date Time Temp Pulse Resp B/P Pulse Ox O2 Delivery O2 Flow Rate FiO2 05/28/16 14:00 78 05/28/16 12:00 98.9 24 182/77 96 05/28/16 12:00 40 05/28/16 09:42 T-piece 05/27/16 08:26 6.00 Intake and Output 05/27/16 05/27/16 05/28/16 08:00 16:00 00:00 Intake Total 1276 ml 1248 ml 1223 ml Output Total 1600 ml 1900 ml 2525 ml Balance -324 ml -652 ml -1302 ml Result Diagram: 05/27/16 0353 Imaging Last [address] 05/03/16 0000 Signed Impressions: Service Date/Time: Tuesday, May 03, 2016 01:18 - CONCLUSION: Large acute posterior fossa hemorrhage. There is also blood in the fourth and third ventricles. Report was called to Dr. Rodrigues at 1:30 AM. Haim Anaya MD Chest X-Ray 05/03/16 0000 Signed Impressions: Service Date/Time: Tuesday, May 03, 2016 01:53 - CONCLUSION: 1. Endotracheal tube tip is about 1.5 cm above the luis antonio. 2. Nasogastric tube courses into the stomach. 3. Lungs reasonably clear. Haim Anaya MD Objective Remarks HEENT: Pupils reactive to light. Neck: Trach site clean. Dry. Chest/Pulm: Clear, no wheezing or crackles. . CVS: S1-S2 regular, no murmur, No JVD. GI/abdomen: Soft, nontender, nondistended, bowel sounds active. Extremities: Warm bilaterally, tr+ edema, remains well perfused. Neuro: Pupils reactive to light. Withdraws bilateral lower extremities to pain. A/P Problem List: (1) Intracranial hemorrhage ICD Code: I62.9 Status: Acute (2) Respiratory failure with hypoxia ICD Code: J96.91 Status: Acute (3) Hypertension ICD Code: I10 Status: Acute (4) Atrial fibrillation ICD Code: I48.91 Status: Acute (5) Coagulopathy ICD Code: D68.9 Status: Acute (6) Diabetes ICD Code: E11.9 Status: Acute Assessment and Plan Neuro: Intracranial hemorrhagic stroke/large acute posterior fossa hemorrhage with intraventricular extension Acute encephalopathy - s/p posterior decompression on 05/04 - s/p hyperosmolar therapy. - EVD, monitor ICP. Keppra for seizure prophylaxis. Neurosurgery Dr. Chavez - EVD clamped yesterday, ICP remained stable, CT of the head remained stable except mild ventriculomegaly. EVD removal per Dr. Chavez - Scheduled Tylenol for fever - Haldol prn for agitation - oxycodone and hydromorphone for agitation or tachypnea/ vent synchrony - Trial dose of Provigil on 05/14 without effect. did not continue. --Permanent V-P shunt functioning well Resp: Acute hypoxic and hypercarbic Respiratory failure - Intubated for airway protection, continue mechanical ventilation. - SBT with 1- 2 hour trach trial today - s/p trach 05/[address] Dent - Aminatab `q 6 hour and PRN - T-piece trial daily - last 10 -12 hours CVS Hypertension - Continue labetalol to 200mg po q8h. - Holding amlodipine. - Hydralazine 20mg iv q20min and labetalol 20mg iv q1h for SBP >180 - Metoprolol 5mg iv q4h prn for HR > 100. - SBP goal <150, better controlled today. - rate controlled - Now on lisinopril, taper labetalol, continue lopressor HEME Coagulopathy - reversed Coumadin with Vit K, FFP and Kcentra on admission. ENDO DM -Levemir 50 units [id number]. High-dose sliding scale insulin. 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 - EGD/colonoscopy 03/15/15- no evidence of upper bleed, colonoscopy revealed active bleeding through out the colon with poor visualization. - S/P bleed scan 03/14/15- positive potentially duodenal. S/P Angiogram of GDA, right colic, ileocolic, and SMA - Rpt. Colonoscopy (03/17/15)---> Colonic polyp, rectal ulcer, indurated area in ascending colon biopsied -continue free water 300mL q4h per tube-reduce to 100ml q6 -serum Na normalizing slowly. - TF at goal, tolerated. -Lipase level acceptable 05/22 ID Persistent fever/leukocytosis-now fevere has resolved - Leukocytosis noted. bruce cultured-neg to date. Continue vancomycin Azactam and Levaquin, and Diflucan. ID Dr. Kin Adan. De-escalate therapy per Dr. Adan - Pansensitive Klebsiella in sputum -> resolved. DVT/GI prophylaxis - TEDs/SCDs/Pepcid OVERALL IMPRESSION: Now has permanent shunt. Sustains T-piece for 1/2 day. Needs long-term vent weaning. Blood pressure control improved. Aiming for LTAC soon. Problem Qualifiers (1) Respiratory failure with hypoxia: Qualified Code: J96.01 - Acute respiratory failure with hypoxia (2) Diabetes: Qualified Code: E11.8 - Type 2 diabetes mellitus with complication, unspecified longterm insulin use status Dwight Harden MD May 28, 2016 14:43
[2016-05-29] VITALS (16 sets, daily range): BP systolic 124–152; BP diastolic 61–74; PULSE 62–73; RESP 14–22; TEMP 98.4–99.2; O2SAT 96–100
[2016-05-29] MEDS: hydrALAZINE HCL 20 MG/ML VIAL IV PUSH PRN ×4 (01:07→23:23)
[2016-05-29] MEDS: oxyCODONE HCL ORAL CONC 20 MG/ML SYRINGE PO SCH ×6 (01:07→21:18)
[2016-05-29] MEDS: levETIRAcetam INJ 500 MG in SODIUM CHLORIDE 0.9% INJ 100 ML IV SCH ×2 (01:07→12:33)
[2016-05-29] MEDS: CHLORHEXIDINE GLUCONATE 2 % 1 PACK (2 CLOTHS) TOP SCH (04:00)
[2016-05-29] MEDS: INSULIN ASPART SUPPLEMENTAL SCALE SQ SCH ×4 (06:00→18:00)
[2016-05-29] MEDS: LABETALOL HCL 200 MG TAB PO SCH ×3 (06:14→21:17)
--- NOTE | 2016-05-29 07:26 | HHI.CCPN ---
Subjective Remarks/Hospital Course 05/03: 65 years old female was brought in by EMS for stroke alert. Patient has history of multiple strokes in the past. Patient has residual left-sided weakness from the strokes. Patient has an Antiphospholipid syndrome and is on Coumadin. Patient was sitting down watching TV with her then patient started became more unresponsive, having aphasia, nausea vomiting, dizziness, increasing left-sided weakness. EMS was called. Patient was brought to ED stroke alert. CT head revealed large posterior fossa ICH. 05/04: Remains sedated, orally intubated on mechanical ventilation. Underwent suboccipital decompression on 05/03. Ventriculostomy in place. ICPs below 10. Drained 150 cc CSF overnight 05/05: acutely this afternoon, her SBP increased from 150s to 200s. neuro exam unchanged, remains sedated on propofol without sedation vacation today per nsgy. pupillary exam unchanged, 2mm equal, reactive. required labetalol 60mg iv , esmolol 150mcg/kg/min, and cardene 15mg/hr to bring back down to goal SBP 150s. EVD still at 0 per nsgy. ICP in lateral ventricles 1. 05/06: severely hypertensive and febrile. re-cultured overnight. sputum growing GNR. 05/07: Patient remains hypertensive currently on nicardipine and esmolol infusions. Instructions given to titrated up nicardipine, start Norvasc 5 mg daily. Sputum culture with pansensitive Klebsiella. at the bedside updated 05/08: No improvement in neuro status. Continues to spike fever 103.3 MAXIMUM TEMPERATURE. Off nicardipine and esmolol. We'll start scheduled Tylenol and cooling blanket. repeat bruce culture 05/09: Continues to have persistent fever MAXIMUM TEMPERATURE 102, white count remains at 16,000. ID consulted also have ordered a lipase, US liver, venous ultrasound of all extremities. I will also change the central line, and give single dose of vancomycin 05/10: MAXIMUM TEMPERATURE is 102, but currently afebrile. Hemoglobin dropped to 6.8, WBC count 17.1. Sodium 152. Neuro exam remains unchanged. Venous ultrasound negative. Appreciate ID and GI consult. Started on Levophed 4 mcg/ min today 05/11: Tmax 101.4, but fever trending down. WBC 17. Hb 7.2. Transfuse 1U PRBC. Na 150. Off Levophed now, hypertensive. BP Labile. All cultures negative 05/12: Afebrile white count trending down 14,000 today. Restart her on Cardene infusion for hypotension. Plan for OR trach today by Dr. Mcfarlane 05/13: s/p trach yesterday. plan for IR to place G-J tube today. neurosurgery challenging EVD today- raised to 10. weaning sedation. poor neurologic exam persists. 05/14: EVD put out 90cc/24h at 10. no neuro improvements. 05/15: EVD put out 25cc/24h at 15. no neuro changes. Na slowly normalizing. also with significant yeast infection over back of neck. 05/16: EVD clamped at 08:30am. ICP stable. persistently poor neuro exam. Na continues to normalize. will trial CPAP today. 05/17: EVD remains clamped, ICP stable, CT head stable with mild ventricular enlargement. Neuro exam remains unchanged. Tolerated 3 hours C Pap yesterday, attempt 1-2 hours T piece trial yesterday 05/18: No significant events overnight. For HULL MOLDER shunt tomorrow. Sodium normalized , will hold free water and restart when Na shows direction. 05/19: Back from OR after shunt. Stable hemodynamics, sats 97% 05/20: Shunt looks good on head CT. Ready for transfer to LTAC when OK with Neurosurgery. 05/21: Small left frontal SDH. Tolerating PSV. 05/22: Tolerating flow by / T-piece. Episodic hypertensive urgency. 05/23: Continues to tolerate flow-by tracheostomy ventilation. No neurological improvement. 05/24: Continuing long-term weaning trials. Last up to 12 hours. [facility] hs. 05/25: Continuing vent weaning. BP control much improved with additional scheduled meds. 05/26: Little neurological improvement. Breathing stronger. 05/27: Continue weaning trials. 05/27: Continue weaning trials. 05/28: Long-term vent weaning problem. Pneumonia largely resolved. Arrangements for transfer to LTAC underway. Objective Vital Signs Date Time Temp Pulse Resp B/P Pulse Ox O2 Delivery O2 Flow Rate FiO2 05/29/16 07:00 97 Mechanical Ventilator 35 05/29/16 06:00 62 05/29/16 04:00 98.9 18 140/63 05/27/16 08:26 6.00 Intake and Output 2/05/28/16 05/29/16 08:00 16:00 00:00 Intake Total 1398 ml 1297 ml 1302 ml Output Total 1225 ml 2750 ml 1300 ml Balance 173 ml -1453 ml 2 ml Result Diagram: 05/27/16 0353 Imaging Last [address] 05/03/16 0000 Signed Impressions: Service Date/Time: Tuesday, May 03, 2016 01:18 - CONCLUSION: Large acute posterior fossa hemorrhage. There is also blood in the fourth and third ventricles. Report was called to Dr. Rodrigues at 1:30 AM. Haim Anaya MD Chest X-Ray 05/03/16 0000 Signed Impressions: Service Date/Time: Tuesday, May 03, 2016 01:53 - CONCLUSION: 1. Endotracheal tube tip is about 1.5 cm above the luis antonio. 2. Nasogastric tube courses into the stomach. 3. Lungs reasonably clear. Haim Anaya MD Objective Remarks HEENT: Pupils reactive to light. Neck: Trach site clean. Dry. Chest/Pulm: Clear, no wheezing or crackles. Comfortable on PSV for short periods. CVS: S1-S2 regular, no murmur, No JVD. GI/abdomen: Soft, nontender, nondistended, bowel sounds active. Extremities: Warm bilaterally, tr+ edema, remains well perfused. Neuro: Pupils reactive to light. Withdraws bilateral lower extremities to pain. A/P Problem List: (1) Intracranial hemorrhage ICD Code: I62.9 Status: Acute (2) Respiratory failure with hypoxia ICD Code: J96.91 Status: Acute (3) Hypertension ICD Code: I10 Status: Acute (4) Atrial fibrillation ICD Code: I48.91 Status: Acute (5) Coagulopathy ICD Code: D68.9 Status: Acute (6) Diabetes ICD Code: E11.9 Status: Acute Assessment and Plan Neuro: Intracranial hemorrhagic stroke/large acute posterior fossa hemorrhage with intraventricular extension Acute encephalopathy - s/p posterior decompression on 05/04 - s/p hyperosmolar therapy. - EVD, monitor ICP. Keppra for seizure prophylaxis. Neurosurgery Dr. Chavez - EVD clamped yesterday, ICP remained stable, CT of the head remained stable except mild ventriculomegaly. EVD removal per Dr. Chavez - Scheduled Tylenol for fever - Haldol prn for agitation - oxycodone and hydromorphone for agitation or tachypnea/ vent synchrony - Trial dose of Provigil on 05/14 without effect. did not continue. --Permanent V-P shunt functioning well Resp: Acute hypoxic and hypercarbic Respiratory failure - Intubated for airway protection, continue mechanical ventilation. - SBT with 1- 2 hour trach trial today - s/p trach 05/[address] Dent - DuoNeb `q 6 hour and PRN - T-piece trial daily - last 10 -12 hours CVS Hypertension - Continue labetalol to 200mg po q8h. - Holding amlodipine. - Hydralazine 20mg iv q20min and labetalol 20mg iv q1h for SBP >180 - Metoprolol 5mg iv q4h prn for HR > 100. - SBP goal <150, better controlled today. - rate controlled - Now on lisinopril, taper labetalol, continue lopressor HEME Coagulopathy - reversed Coumadin with Vit K, FFP and Kcentra on admission. ENDO DM -Levemir 50 units [id number]. High-dose sliding scale insulin. 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 - EGD/colonoscopy 03/15/15- no evidence of upper bleed, colonoscopy revealed active bleeding through out the colon with poor visualization. - S/P bleed scan 03/14/15- positive potentially duodenal. S/P Angiogram of GDA, right colic, ileocolic, and SMA - Rpt. Colonoscopy (03/17/15)---> Colonic polyp, rectal ulcer, indurated area in ascending colon biopsied -continue free water 300mL q4h per tube-reduce to 100ml q6 -serum Na normalizing slowly. - TF at goal, tolerated. -Lipase level acceptable 05/22 ID Persistent fever/leukocytosis-now fevere has resolved - Leukocytosis noted. bruce cultured-neg to date. Continue vancomycin Azactam and Levaquin, and Diflucan. ID Dr. Kin Adan. De-escalate therapy per Dr. Dontfraid - Pansensitive Klebsiella in sputum -> resolved. DVT/GI prophylaxis - TEDs/SCDs/Pepcid OVERALL IMPRESSION: Now has permanent shunt for 8 days. Sustains T-piece for 1/ 2 day. Needs long-term vent weaning. Blood pressure control acceptable. Aiming for LTAC soon. Problem Qualifiers (1) Respiratory failure with hypoxia: Qualified Code: J96.01 - Acute respiratory failure with hypoxia (2) Diabetes: Qualified Code: E11.8 - Type 2 diabetes mellitus with complication, unspecified [facility] insulin use status Dwight Harden MD May 29, 2016 07:26
[2016-05-29] MEDS: CHLORHEXIDINE 0.12% (ORAL KIT) 15 ML CUP MT SCH ×2 (08:21→20:00)
[2016-05-29] MEDS: ARTIFICIAL TEARS OPTH SOLN 15 ML BTL EACH EYE SCH ×3 (08:21→18:04)
[2016-05-29] MEDS: SODIUM CHLORIDE 0.9% FLUSH 5 ML FLUSH IVF SCH ×2 (08:22→20:44)
[2016-05-29] MEDS: FUROSEMIDE 20 MG/2 ML VIAL IV PUSH SCH (08:22)
[2016-05-29] MEDS: LISINOPRIL 20 MG TAB PO SCH ×2 (08:23→20:44)
[2016-05-29] MEDS: LACTULOSE SYRUP 20 GM/30 ML CUP PO SCH ×2 (08:23→20:45)
[2016-05-29] MEDS: PANTOPRAZOLE SODIUM 40 MG VIAL IVP SCH (08:23)
[2016-05-29] MEDS: FAMOTIDINE 20 MG TAB PO SCH ×2 (08:23→20:47)
[2016-05-29] MEDS: METOPROLOL TARTRATE 100 MG TAB PO SCH ×2 (08:24→20:44)
[2016-05-29] MEDS: DOCUSATE SODIUM 50 MG/SENNA 8.6 MG TAB PO SCH ×2 (08:24→20:45)
[2016-05-29] MEDS: POLYETHYLENE GLYCOL 17 GM PKG PO SCH ×2 (08:24→20:45)
[2016-05-29] MEDS: BISACODYL 10 MG SUPP RECTAL SCH (08:24)
[2016-05-29] MEDS: INSULIN DETEMIR 100 UNITS/ML VIAL SQ SCH ×2 (08:24→20:44)
[2016-05-29] MEDS: NS + KCL 20 MEQ INJ 1,000 ML IV SCH ×2 (08:25→18:13)
--- NOTE | 2016-05-29 10:26 | HHI.NSPN ---
(Bri Merchant) Note Status Status: Progress Note (Bri Merchant) Interval History Interval History This is a 65 year old female brought in by EMS as a stroke alert. She has history of multiple ischemic strokes in the past with residual left-sided weakness from the strokes. Patient has a history of Antiphospholipid syndrome and is on anticoagulated Coumadin. Apparently she was sitting down watching TV with her when she became unresponsive, with aphasia, nausea vomiting, dizziness, and increasing left-sided weakness. She is a known tyoe II diabetic and appears to be uncontrolled in ketoacidosis. EMS was called. She was brought to ED stroke alert. CT head revealed a posterior fossa ICH. She underwent emergen posterior fossa craniectomy with evacuation of cerebellar bleed and placement of ventriculostomy drain on 05/03/16. 05/04: well sedated. Pupils equal. EVD at 0 cm H20, ICPs below 10. 05/05: ICPs remains within normal limits, pupils equal, ventriculostomy draining well. 05/06: hypertensive, BP was up in the 200's systolic yesterday, on cardene. Currently running 150s. ICPs normal, EVD draining well. serum sodium 148. well sedated also for bp control. 05/07: intubated, sedated, pupils equal. EEG no ictal abnormalities. 05/10: EVD draining well, ICPs within normal limits. intubated and sedated on versed, no eye opening still. Fevers better, now with acute on chronic pancreatitis. CSF cultures pending. 05/11: no clinical changes, for trach/PEG today. 05/12: going for tracheostomy, ICPs wnl following raising of EVD to 5 cm yesterday 05/13: s/p tracheostomy placement, still on low dose Versed. positive cough/gag when suctioned, withdraws LE, pupils equal. still no report of eye opening or following commands. 05/17: challenging EVD, clamped over 24 hours,f/u CT Brain completed this am shows increase in ventricle size. No changes in neuro checks. 05/18: for ventriculoperitoenal shunt tomorrow, EVD draining well, ICPs within normal limits. 05/20: POD 1 s/p placement of CHIEF YEOMAN shunt, on CPAP, not tolerating t-piece. Slightly opens eyes but not following commands. 05/21: POD 2, less responsive today, not opening her eyes even to deep stimuli. 05/24: seen this am during rounds, POD 5 following CHIEF YEOMAN shunt placement, appears more awake, opening eyes more. in room. tolerating t-piece longer during the day. 05/25: appears more awake, eyes open, family at bedside reports she may have moved her toes this am to command. 05/26: focusing more today, no changes overnight 05/27: opening eyes to verbal stimuli, focusing, doing well on t-piece 05/28: grimacing when suctioned, focusing to the right and left to voice. 05/29: doing well, no changes overnight, dc planning to LTAC poss today in [place] (Bri Merchant) Labs, Micro, & Vital Signs Results Date Time Temp Pulse Resp B/P Pulse Ox O2 Delivery O2 Flow Rate FiO2 05/29/16 08:09 97 T-piece 5.00 28 05/29/16 08:00 64 05/29/16 08:00 98.7 68 16 124/61 96 05/29/16 08:00 98 35 05/29/16 08:00 28 05/29/16 07:00 97 Mechanical Ventilator 35 05/29/16 06:00 62 05/29/16 04:00 98.9 63 18 140/63 97 05/29/16 04:00 63 05/29/16 04:00 35 05/29/16 03:30 96 35 05/29/16 02:00 63 05/29/16 00:35 100 35 05/29/16 00:00 98.4 65 22 144/66 97 05/29/16 00:00 35 05/29/16 00:00 65 05/28/16 22:00 66 05/28/16 20:37 98 35 05/28/16 20:00 35 05/28/16 20:00 66 05/28/16 20:00 99.0 82 18 161/74 98 05/28/16 19:00 98 Mechanical Ventilator 40 05/28/16 18:36 22 05/28/16 18:00 74 05/28/16 17:40 98 35 05/28/16 16:00 72 05/28/16 16:00 40 05/28/16 16:00 98.8 72 26 144/66 97 05/28/16 14:00 78 05/28/16 12:00 98.9 74 24 182/77 96 05/28/16 12:00 40 05/28/16 12:00 74 05/29/16 07:00 Intake Total 3983 ml Output Total 4700 ml Balance -717 ml Constitutional Vital Signs Date Time Temp Pulse Resp B/P Pulse Ox O2 Delivery O2 Flow Rate FiO2 05/29/16 08:09 97 T-piece 5.00 28 05/29/16 08:00 64 05/29/16 08:00 98.7 68 16 124/61 96 05/29/16 08:00 98 35 05/29/16 08:00 28 05/29/16 07:00 97 Mechanical Ventilator 35 05/29/16 06:00 62 05/29/16 04:00 98.9 63 18 140/63 97 05/29/16 04:00 63 05/29/16 04:00 35 05/29/16 03:30 96 35 05/29/16 02:00 63 05/29/16 00:35 100 35 05/29/16 00:00 98.4 65 22 144/66 97 05/29/16 00:00 35 05/29/16 00:00 65 05/28/16 22:00 66 05/28/16 20:37 98 35 05/28/16 20:00 35 05/28/16 20:00 66 05/28/16 20:00 99.0 82 18 161/74 98 05/28/16 19:00 98 Mechanical Ventilator 40 05/28/16 18:36 22 05/28/16 18:00 74 05/28/16 17:40 98 35 05/28/16 16:00 72 05/28/16 16:00 40 05/28/16 16:00 98.8 72 26 144/66 97 05/28/16 14:00 78 05/28/16 12:00 98.9 74 24 182/77 96 05/28/16 12:00 40 05/28/16 12:00 74 05/29/16 07:00 Intake Total 3983 ml Output Total 4700 ml Balance -717 ml (Bri Merchant) Review of Systems/Exam ROS cannot obtain due to clinical condition Exam Eyes open to verbal stimuli, focused to her right and left today to voice. Grimaced when suctioned Left CHIEF YEOMAN shunt palpated with good bubble rebound. Surgical wounds healing well. CN: pupils equal, facial appears grossly symmetric at rest Motor: withdraws both legs to local stimuli, on PODUS boots Neck: tracheostomy Respiratory: clear, currently on CPAP Cannot assess cerebellar exam due to clinical condition (Bri Merchant) Medications Current Medications Current Medications Medications (Trade) Dose Ordered Sig/Michelle Route PRN Reason Start Time Stop Time Status Last Admin Dose Admin Artificial Tears (Tears Naturale Opth Soln) 1 drop TID EACH EYE 05/03/16 09:00 05/29/16 08:21 Ondansetron HCl (Zofran Inj) 4 mg Q6H PRN IV NAUSEA OR VOMITING 05/03/16 04:30 Miscellaneous Information 1 Q361D XX 05/03/16 04:30 05/03/16 04:30 IV Flush (NS Flush) 2 ml UNSCH PRN IVF FLUSH AFTER USING IV ACCESS 05/03/16 12:30 05/26/16 00:03 IV Flush 2 ml 2 ml BID IVF 05/03/16 21:00 05/28/16 20:43 Levetriacetam/ Sodium Chloride (Keppra Inj/NS Inj) 105 ml @ 400 mls/hr Q12H IV 05/03/16 13:00 05/29/16 01:07 Calcium Gluconate 1 gm 1 gm UNSCH PRN IV SEE LABEL COMMENTS 05/03/16 12:30 Potassium Chloride 100 ml @ 50 mls/hr UNSCH PRN IV POTASSIUM LESS THAN 4 05/03/16 12:30 05/04/16 06:56 Magnesium Sulfate/ Sodium Chloride (Magnesium Sulfate Inj/NS Inj) 108 ml @ 108 mls/hr UNSCH PRN IV MAGNESIUM LESS THAN 2 05/03/16 12:30 Acetaminophen 650 mg 650 mg Q4H PRN PO TEMPERATURE > 101.5 F 05/03/16 12:30 05/08/16 10:38 Potassium Chloride 100 ml @ 50 mls/hr Q2H PRN IV For Potassium 2.8 - 3.2 mEq/L 05/04/16 08:45 Potassium Chloride (KCl 20 Meq Premix Inj) 100 ml @ 50 mls/hr Q2H PRN IV For Potassium 2.8 - 3.2 mEq/L 05/04/16 08:45 Potassium Chloride 40 meq 40 meq UNSCH PRN PO/TUBE For Potassium 3.3 - 3.5 mEq/L 05/04/16 08:45 Potassium Chloride 100 ml @ 25 mls/hr UNSCH PRN IV For Potassium 3.3 - 3.5 mEq/L 05/04/16 08:45 Potassium Chloride 100 ml @ 50 mls/hr Q2H PRN IV For Potassium 3.3 - 3.5 mEq/L 05/04/16 08:45 Magnesium Sulfate/ Sodium Chloride (Magnesium Sulfate Inj/NS Inj) 100 ml @ 50 mls/hr UNSCH PRN IV For Magnesium 0.9 - 1.1 mg/dL 05/04/16 08:45 Magnesium Oxide 800 mg 800 mg UNSCH PRN PO For Magnesium 1.2 - 1.6 mg/dL 05/04/16 08:45 Magnesium Sulfate/ Sodium Chloride (Magnesium Sulfate Inj/NS Inj) 100 ml @ 50 mls/hr UNSCH PRN IV For Magnesium 1.2 - 1.6 mg/dL 05/04/16 08:45 Potassium Phosphate 2000 mg 2,000 mg Q4H PRN PO For Phosphorus < 2.5 mg/dL 05/04/16 08:45 Sodium Phosphate/ Sodium Chloride (Sodium Phosphate Inj/NS 250 ml Inj) 250 ml @ 42 mls/hr UNSCH PRN IV For Phosphorus < 2.5 mg/dL 05/04/16 08:45 Potassium Chloride (KCl 40 Meq/30 ml Liq) 40 meq UNSCH PRN PO/TUBE SEE LABEL COMMENTS 05/04/16 08:45 Potassium Phosphate 2000 mg 2,000 mg UNSCH PRN PO/TUBE SEE LABEL COMMENTS 05/04/16 08:45 Potassium Phosphate/Sodium Chloride (Potassium Phosphate Inj/NS 250 ml Inj) 260 ml @ 42 mls/hr UNSCH PRN IV SEE LABEL COMMENTS 05/04/16 08:45 Dextrose (D50w (Vial) Inj) 25 ml UNSCH PRN IV HYPOGLYCEMIA-SEE COMMENTS 05/04/16 08:45 05/23/16 04:15 Glucagon (Glucagon Inj) 1 mg UNSCH PRN IM/SQ HYPOGLYCEMIA-SEE COMMENTS 05/04/16 08:45 Insulin Detemir (Levemir Inj) 50 units Q12HR SQ 05/06/16 21:00 05/29/16 08:24 Labetalol HCl (Trandate Inj) 20 mg Q1H PRN IVS SBP greater than 160mm Hg 05/06/16 10:00 05/27/16 12:45 Metoprolol Tartrate (Lopressor Inj) 5 mg Q4H PRN IV PUSH HR > 100 05/06/16 11:00 05/22/16 12:28 Bisacodyl (Dulcolax Supp) 10 mg DAILY RECTAL 05/07/16 09:55 05/16/16 08:24 Polyethylene Glycol (Miralax) 17 gm BID PO 05/06/16 09:55 05/25/16 20:17 Lactulose (Lactulose Liq) 30 ml BID PO 05/06/16 11:00 05/29/16 08:23 Senna/Docusate Sodium (Meaghan-Colace) 1 tab BID PO 05/06/16 10:00 05/25/16 20:17 Miscellaneous (Pill Splitter) 1 ea UNSCH PRN OTHER SEE LABEL COMMENTS 05/06/16 21:00 Amlodipine Besylate (Norvasc) 10 mg DAILY PO 05/09/16 09:00 Hold Hydromorphone HCl (Dilaudid Pf Inj) 0.5 mg Q4H PRN IV PUSH pain 8-10 or not taking po 05/13/16 09:30 05/24/16 10:25 Oxycodone HCl (Roxicodone Intensol Liq) 5 mg Q4H PO 05/13/16 10:00 05/29/16 09:29 Haloperidol Lactate (Haldol Inj) 5 mg Q4H PRN IV agitation 05/13/16 09:30 05/27/16 17:10 Famotidine 20 mg 20 mg BID PO 05/14/16 21:00 05/29/16 08:23 Fluconazole/ Sodium Chloride 50 ml @ 50 mls/hr Q24H IV 05/18/16 14:00 05/28/16 13:46 Potassium Chloride/Sodium Chloride (NS + KCl 20 Meq Inj) 1,000 ml @ 100 mls/hr Q10H IV 05/19/16 10:59 05/29/16 08:25 Pantoprazole Sodium (Protonix Inj) 40 mg DAILY IVP 05/20/16 09:00 05/29/16 08:23 Chlorhexidine Gluconate (Peridex 0.12% Liq) 15 ml BID@08,20 MT 05/19/16 20:00 05/29/16 08:21 Miscellaneous Information 1 Q361D XX 05/19/16 14:15 Chlorhexidine Gluconate (Chlorhexidine 2% Cloth) Taper DAILY@04 TOP 05/20/16 04:00 05/16/17 03:59 05/24/16 06:08 Chlorhexidine Gluconate (Chlorhexidine 2% Cloth) 3 pack UNSCH PRN TOP HYGIENIC CARE 05/19/16 14:15 Labetalol HCl (Trandate) 200 mg Q8HR PO 05/22/16 14:00 05/29/16 06:14 Hydralazine HCl (Apresoline Inj) 20 mg Q30M PRN IV PUSH SYS BP GREATER THAN 150 MMHG 05/24/16 12:30 05/29/16 01:07 Lisinopril (Prinivil) 20 mg Q12HR PO 05/24/16 21:00 05/29/16 08:23 Metoprolol Tartrate (Lopressor) 100 mg Q12HR PO 05/24/16 21:00 05/29/16 08:24 Furosemide (Lasix Inj) 20 mg DAILY IV PUSH 05/27/16 13:00 05/29/16 08:22 Insulin Aspart (NovoLOG SUPPLEMENTAL SCALE) 1 Q6HR SQ 05/28/16 18:00 (Bri Merchant) Medical Decision Making MDM Remarks 65 y/o female with cerebellar bleed s/p posterior fossa craniectomy with evacuation of hematoma, neuro slowly improving hydrocephalus following clamping of EVD, s/p placement of ventriculoperitoneal shunt 05/19/16 CT Brain 05/21 with small acute on chronic left SDH, shunt pressure raised to 160 mm H20 (Bri Merchant) Plan Plan Remarks doing well, neuro slowly improving dc liam, dc planning to LTAC when bed available dw family member in room (Bri Merchant) Attending Statement The exam, history, and the medical decision-making described in the above note were completed with the assistance of the mid-level provider. I reviewed and agree with the findings presented. I attest that I had a [id number] encounter with the patient on the same day, and personally performed and documented my assessment and findings in the medical record. (Oumar Chavez MD) Bri Merchant May 29, 2016 10:26 Oumar Chavez MD May 29, 2016 19:22
[2016-05-29] MEDS: FLUCONAZOLE 100 MG PREMIX BAG 50 ML IV SCH (13:38)
[2016-05-30] VITALS (9 sets, daily range): BP systolic 104–151; BP diastolic 55–68; PULSE 66–75; RESP 12–24; TEMP 98–98.5; O2SAT 95–98
[2016-05-30] MEDS: levETIRAcetam INJ 500 MG in SODIUM CHLORIDE 0.9% INJ 100 ML IV SCH ×2 (01:22→13:00)
[2016-05-30] MEDS: oxyCODONE HCL ORAL CONC 20 MG/ML SYRINGE PO SCH ×4 (01:22→13:50)
[2016-05-30] MEDS: hydrALAZINE HCL 20 MG/ML VIAL IV PUSH PRN (02:32)
[2016-05-30] MEDS: CHLORHEXIDINE GLUCONATE 2 % 1 PACK (2 CLOTHS) TOP SCH (04:00)
[2016-05-30] MEDS: NS + KCL 20 MEQ INJ 1,000 ML IV SCH (05:17)
[2016-05-30] MEDS: LABETALOL HCL 200 MG TAB PO SCH ×2 (05:17→13:51)
[2016-05-30] MEDS: INSULIN ASPART SUPPLEMENTAL SCALE SQ SCH ×3 (05:18→12:00)
[2016-05-30] MEDS: SODIUM CHLORIDE 0.9% FLUSH 5 ML FLUSH IVF SCH (07:24)
[2016-05-30] MEDS: POLYETHYLENE GLYCOL 17 GM PKG PO SCH (07:25)
[2016-05-30] MEDS: BISACODYL 10 MG SUPP RECTAL SCH (07:25)
[2016-05-30] MEDS: LACTULOSE SYRUP 20 GM/30 ML CUP PO SCH (07:25)
[2016-05-30] MEDS: DOCUSATE SODIUM 50 MG/SENNA 8.6 MG TAB PO SCH (07:25)
--- NOTE | 2016-05-30 08:51 | HHI.CCPN ---
Subjective Remarks/Hospital Course 05/03: 65 years old female was brought in by EMS for stroke alert. Patient has history of multiple strokes in the past. Patient has residual left-sided weakness from the strokes. Patient has an Antiphospholipid syndrome and is on Coumadin. Patient was sitting down watching TV with her then patient started became more unresponsive, having aphasia, nausea vomiting, dizziness, increasing left-sided weakness. EMS was called. Patient was brought to ED stroke alert. CT head revealed large posterior fossa ICH. 05/04: Remains sedated, orally intubated on mechanical ventilation. Underwent suboccipital decompression on 05/03. Ventriculostomy in place. ICPs below 10. Drained 150 cc CSF overnight 05/05: acutely this afternoon, her SBP increased from 150s to 200s. neuro exam unchanged, remains sedated on propofol without sedation vacation today per nsgy. pupillary exam unchanged, 2mm equal, reactive. required labetalol 60mg iv , esmolol 150mcg/kg/min, and cardene 15mg/hr to bring back down to goal SBP 150s. EVD still at 0 per nsgy. ICP in lateral ventricles 1. 05/06: severely hypertensive and febrile. re-cultured overnight. sputum growing GNR. 05/07: Patient remains hypertensive currently on nicardipine and esmolol infusions. Instructions given to titrated up nicardipine, start Norvasc 5 mg daily. Sputum culture with pansensitive Klebsiella. at the bedside updated 05/08: No improvement in neuro status. Continues to spike fever 103.3 MAXIMUM TEMPERATURE. Off nicardipine and esmolol. We'll start scheduled Tylenol and cooling blanket. repeat bruce culture 05/09: Continues to have persistent fever MAXIMUM TEMPERATURE 102, white count remains at 16,000. ID consulted also have ordered a lipase, US liver, venous ultrasound of all extremities. I will also change the central line, and give single dose of vancomycin 05/10: MAXIMUM TEMPERATURE is 102, but currently afebrile. Hemoglobin dropped to 6.8, WBC count 17.1. Sodium 152. Neuro exam remains unchanged. Venous ultrasound negative. Appreciate ID and GI consult. Started on Levophed 4 mcg/ min today 05/11: Tmax 101.4, but fever trending down. WBC 17. Hb 7.2. Transfuse 1U PRBC. Na 150. Off Levophed now, hypertensive. BP Labile. All cultures negative 05/12: Afebrile white count trending down 14,000 today. Restart her on Cardene infusion for hypotension. Plan for OR trach today by Dr. Mcfarlane 05/13: s/p trach yesterday. plan for IR to place G-J tube today. neurosurgery challenging EVD today- raised to 10. weaning sedation. poor neurologic exam persists. 05/14: EVD put out 90cc/24h at 10. no neuro improvements. 05/15: EVD put out 25cc/24h at 15. no neuro changes. Na slowly normalizing. also with significant yeast infection over back of neck. 05/16: EVD clamped at 08:30am. ICP stable. persistently poor neuro exam. Na continues to normalize. will trial CPAP today. 05/17: EVD remains clamped, ICP stable, CT head stable with mild ventricular enlargement. Neuro exam remains unchanged. Tolerated 3 hours C Pap yesterday, attempt 1-2 hours T piece trial yesterday 05/18: No significant events overnight. For [employer] shunt tomorrow. Sodium normalized , will hold free water and restart when Na shows direction. 05/19: Back from OR after shunt. Stable hemodynamics, sats 97% 05/20: Shunt looks good on head CT. Ready for transfer to LTAC when OK with Neurosurgery. 05/21: Small left frontal SDH. Tolerating PSV. 05/22: Tolerating flow by / T-piece. Episodic hypertensive urgency. 05/23: Continues to tolerate flow-by tracheostomy ventilation. No neurological improvement. 05/24: Continuing long-term weaning trials. Last up to 12 hours. [facility] hs. 05/25: Continuing vent weaning. BP control much improved with additional scheduled meds. 05/26: Little neurological improvement. Breathing stronger. 05/27: Continue weaning trials. 05/27: Continue weaning trials. 05/28: Long-term vent weaning problem. Pneumonia largely resolved. Arrangements for transfer to LTAC underway. 05/30: On T piece. Awaiting transfer to LTAC. Objective Vital Signs Date Time Temp Pulse Resp B/P Pulse Ox O2 Delivery O2 Flow Rate FiO2 05/30/16 08:21 95 T-piece 5.00 28 05/30/16 08:00 98.0 71 24 147/65 Intake and Output 2/05/29/16 05/30/16 08:00 16:00 00:00 Intake Total 1384 ml 1162 ml 1179 ml Output Total 650 ml 2050 ml 1550 ml Balance 734 ml -888 ml -371 ml Result Diagram: 05/27/16 0353 Imaging Last [address] 05/03/16 0000 Signed Impressions: Service Date/Time: Tuesday, May 03, 2016 01:18 - CONCLUSION: Large acute posterior fossa hemorrhage. There is also blood in the fourth and third ventricles. Report was called to Dr. Rodrigues at 1:30 AM. Haim Anaya MD Chest X-Ray 05/03/16 0000 Signed Impressions: Service Date/Time: Tuesday, May 03, 2016 01:53 - CONCLUSION: 1. Endotracheal tube tip is about 1.5 cm above the luis antonio. 2. Nasogastric tube courses into the stomach. 3. Lungs reasonably clear. Haim Anaya MD Objective Remarks HEENT: Pupils reactive to light. Neck: Trach site clean. Dry. Chest/Pulm: Clear, no wheezing or crackles. Comfortable on PSV for short periods. CVS: S1-S2 regular, no murmur, No JVD. GI/abdomen: Soft, nontender, nondistended, bowel sounds active. Extremities: Warm bilaterally, tr+ edema, remains well perfused. Neuro: Pupils reactive to light. Withdraws bilateral lower extremities to pain. A/P Problem List: (1) Intracranial hemorrhage ICD Code: I62.9 Status: Acute (2) Respiratory failure with hypoxia ICD Code: J96.91 Status: Acute (3) Hypertension ICD Code: I10 Status: Acute (4) Atrial fibrillation ICD Code: I48.91 Status: Acute (5) Coagulopathy ICD Code: D68.9 Status: Acute (6) Diabetes ICD Code: E11.9 Status: Acute Assessment and Plan Neuro: Intracranial hemorrhagic stroke/large acute posterior fossa hemorrhage with intraventricular extension Acute encephalopathy - s/p posterior decompression on 05/04 - s/p hyperosmolar therapy. - EVD, monitor ICP. Keppra for seizure prophylaxis. Neurosurgery Dr. Chavez - EVD clamped yesterday, ICP remained stable, CT of the head remained stable except mild ventriculomegaly. EVD removal per Dr. Chavez - Scheduled Tylenol for fever - Haldol prn for agitation - oxycodone and hydromorphone for agitation or tachypnea/ vent synchrony - Trial dose of Provigil on 05/14 without effect. did not continue. --Permanent V-P shunt functioning well Resp: Acute hypoxic and hypercarbic Respiratory failure - continue mechanical ventilation as needed. - - s/p trach 05/[address] Jailene Pinedo `q 6 hour and PRN - T-piece trial daily - last 10 -12 hours. CVS Hypertension - Continue labetalol to 200mg po q8h. - Holding amlodipine. - Hydralazine 20mg iv q20min and labetalol 20mg iv q1h for SBP >180 - Metoprolol 5mg iv q4h prn for HR > 100. - SBP goal <150, better controlled today. - rate controlled - Now on lisinopril, taper labetalol, continue lopressor HEME Coagulopathy - reversed Coumadin with Vit K, FFP and Kcentra on admission. ENDO DM -Levemir 50 units [id number]. High-dose sliding scale insulin. 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 - EGD/colonoscopy 03/15/15- no evidence of upper bleed, colonoscopy revealed active bleeding through out the colon with poor visualization. - S/P bleed scan 03/14/15- positive potentially duodenal. S/P Angiogram of GDA, right colic, ileocolic, and SMA - Rpt. Colonoscopy (03/17/15)---> Colonic polyp, rectal ulcer, indurated area in ascending colon biopsied -continue free water 300mL q4h per tube-reduce to 100ml q6 -serum Na normalizing slowly. - TF at goal, tolerated. -Lipase level acceptable 05/22 ID Persistent fever/leukocytosis-now fevere has resolved - Leukocytosis noted. bruce cultured-neg to date. Continue vancomycin Azactam and Levaquin, and Diflucan. ID Dr. Kin Adan. De-escalate therapy per Dr. Adan - Pansensitive Klebsiella in sputum -> resolved. DVT/GI prophylaxis - TEDs/SCDs/Pepcid OVERALL IMPRESSION: Now has permanent shunt. Sustains T-piece for 1/2 day. Needs long-term vent weaning. Blood pressure control acceptable. Aiming for LTAC soon. Problem Qualifiers (1) Respiratory failure with hypoxia: Qualified Code: J96.01 - Acute respiratory failure with hypoxia (2) Diabetes: Qualified Code: E11.8 - Type 2 diabetes mellitus with complication, unspecified ferry terminal agent insulin use status Rj Perea MD May 30, 2016 08:51
[2016-05-30] MEDS: METOPROLOL TARTRATE 100 MG TAB PO SCH (09:00)
[2016-05-30] MEDS: ARTIFICIAL TEARS OPTH SOLN 15 ML BTL EACH EYE SCH ×2 (09:00→13:00)
[2016-05-30] MEDS: CHLORHEXIDINE 0.12% (ORAL KIT) 15 ML CUP MT SCH (10:01)
[2016-05-30] MEDS: FUROSEMIDE 20 MG/2 ML VIAL IV PUSH SCH (10:01)
[2016-05-30] MEDS: LISINOPRIL 20 MG TAB PO SCH (10:02)
[2016-05-30] MEDS: PANTOPRAZOLE SODIUM 40 MG VIAL IVP SCH (10:02)
[2016-05-30] MEDS: FAMOTIDINE 20 MG TAB PO SCH (10:02)
[2016-05-30] MEDS: INSULIN DETEMIR 100 UNITS/ML VIAL SQ SCH (10:03)
--- NOTE | 2016-05-30 10:41 | HHI.NSPN ---
(Bri Merchant) Note Status Status: Progress Note (Bri Merchant) Interval History Interval History This is a 65 year old female brought in by EMS as a stroke alert. She has history of multiple ischemic strokes in the past with residual left-sided weakness from the strokes. Patient has a history of Antiphospholipid syndrome and is on anticoagulated Coumadin. Apparently she was sitting down watching TV with her when she became unresponsive, with aphasia, nausea vomiting, dizziness, and increasing left-sided weakness. She is a known tyoe II diabetic and appears to be uncontrolled in ketoacidosis. EMS was called. She was brought to ED stroke alert. CT head revealed a posterior fossa ICH. She underwent emergen posterior fossa craniectomy with evacuation of cerebellar bleed and placement of ventriculostomy drain on 05/03/16. 05/04: well sedated. Pupils equal. EVD at 0 cm H20, ICPs below 10. 05/05: ICPs remains within normal limits, pupils equal, ventriculostomy draining well. 05/06: hypertensive, BP was up in the 200's systolic yesterday, on cardene. Currently running 150s. ICPs normal, EVD draining well. serum sodium 148. well sedated also for bp control. 05/07: intubated, sedated, pupils equal. EEG no ictal abnormalities. 05/10: EVD draining well, ICPs within normal limits. intubated and sedated on versed, no eye opening still. Fevers better, now with acute on chronic pancreatitis. CSF cultures pending. 05/11: no clinical changes, for trach/PEG today. 05/12: going for tracheostomy, ICPs wnl following raising of EVD to 5 cm yesterday 05/13: s/p tracheostomy placement, still on low dose Versed. positive cough/gag when suctioned, withdraws LE, pupils equal. still no report of eye opening or following commands. 05/17: challenging EVD, clamped over 24 hours,f/u CT Brain completed this am shows increase in ventricle size. No changes in neuro checks. 05/18: for ventriculoperitoenal shunt tomorrow, EVD draining well, ICPs within normal limits. 05/20: POD 1 s/p placement of WHARF BUILDER shunt, on CPAP, not tolerating t-piece. Slightly opens eyes but not following commands. 05/21: POD 2, less responsive today, not opening her eyes even to deep stimuli. 05/24: seen this am during rounds, POD 5 following WHARF BUILDER shunt placement, appears more awake, opening eyes more. in room. tolerating t-piece longer during the day. 05/25: appears more awake, eyes open, family at bedside reports she may have moved her toes this am to command. 05/26: focusing more today, no changes overnight 05/27: opening eyes to verbal stimuli, focusing, doing well on t-piece 05/28: grimacing when suctioned, focusing to the right and left to voice. 05/29: doing well, no changes overnight, dc planning to LTAC poss today in [place] 05/30: awaiting for bed in [place], no changes overnight (Bri Merchant) Labs, Micro, & Vital Signs Results Date Time Temp Pulse Resp B/P Pulse Ox O2 Delivery O2 Flow Rate FiO2 05/30/16 10:00 71 05/30/16 08:21 95 T-piece 5.00 28 05/30/16 08:00 28 05/30/16 08:00 98.0 71 24 147/65 96 05/30/16 08:00 71 05/30/16 07:00 95 T-Piece 28 05/30/16 06:00 68 05/30/16 04:00 98.3 74 20 151/68 96 05/30/16 04:00 74 05/30/16 04:00 28 05/30/16 02:00 75 05/30/16 00:00 98.5 67 16 133/62 96 05/30/16 00:00 28 05/30/16 00:00 67 05/29/16 22:00 70 05/29/16 20:00 28 05/29/16 20:00 73 05/29/16 20:00 99.1 71 14 134/64 96 05/29/16 19:56 96 T-piece 28 05/29/16 19:00 97 T-Piece 28 05/29/16 18:00 67 05/29/16 16:00 70 05/29/16 16:00 28 05/29/16 16:00 99.2 70 14 147/70 96 05/29/16 14:00 68 05/29/16 12:00 98.4 70 16 152/74 96 05/29/16 12:00 70 05/29/16 12:00 28 05/30/16 07:00 Intake Total 3753 ml Output Total 4800 ml Balance -1047 ml Constitutional Vital Signs Date Time Temp Pulse Resp B/P Pulse Ox O2 Delivery O2 Flow Rate FiO2 05/30/16 10:00 71 05/30/16 08:21 95 T-piece 5.00 28 05/30/16 08:00 28 05/30/16 08:00 98.0 71 24 147/65 96 05/30/16 08:00 71 05/30/16 07:00 95 T-Piece 28 05/30/16 06:00 68 05/30/16 04:00 98.3 74 20 151/68 96 05/30/16 04:00 74 05/30/16 04:00 28 05/30/16 02:00 75 05/30/16 00:00 98.5 67 16 133/62 96 05/30/16 00:00 28 05/30/16 00:00 67 05/29/16 22:00 70 05/29/16 20:00 28 05/29/16 20:00 73 05/29/16 20:00 99.1 71 14 134/64 96 05/29/16 19:56 96 T-piece 28 05/29/16 19:00 97 T-Piece 28 05/29/16 18:00 67 05/29/16 16:00 70 05/29/16 16:00 28 05/29/16 16:00 99.2 70 14 147/70 96 05/29/16 14:00 68 05/29/16 12:00 98.4 70 16 152/74 96 05/29/16 12:00 70 05/29/16 12:00 28 05/30/16 07:00 Intake Total 3753 ml Output Total 4800 ml Balance -1047 ml (Bri Merchant) Review of Systems/Exam ROS cannot obtain due to clinical condition Exam Opens eyes, focused to her right and left today to voice. Does not follow commands. Left WHARF BUILDER shunt palpated with good bubble rebound. Surgical wounds healing well, no redness, drainage, or other signs of infection. CN: pupils equal, facial appears grossly symmetric at rest Motor: withdraws both legs to local stimuli, on PODUS boots Neck: tracheostomy Cannot assess cerebellar exam due to clinical condition (Bri Merchant) Medications Current Medications Current Medications Medications (Trade) Dose Ordered Sig/Michelle Route PRN Reason Start Time Stop Time Status Last Admin Dose Admin Artificial Tears (Tears Naturale Opth Soln) 1 drop TID EACH EYE 05/03/16 09:00 05/30/16 09:00 Ondansetron HCl (Zofran Inj) 4 mg Q6H PRN IV NAUSEA OR VOMITING 05/03/16 04:30 Miscellaneous Information 1 Q361D XX 05/03/16 04:30 05/03/16 04:30 IV Flush (NS Flush) 2 ml UNSCH PRN IVF FLUSH AFTER USING IV ACCESS 05/03/16 12:30 05/26/16 00:03 IV Flush 2 ml 2 ml BID IVF 05/03/16 21:00 05/30/16 07:24 Levetriacetam/ Sodium Chloride (Keppra Inj/NS Inj) 105 ml @ 400 mls/hr Q12H IV 05/03/16 13:00 05/30/16 01:22 Calcium Gluconate 1 gm 1 gm UNSCH PRN IV SEE LABEL COMMENTS 05/03/16 12:30 Potassium Chloride 100 ml @ 50 mls/hr UNSCH PRN IV POTASSIUM LESS THAN 4 05/03/16 12:30 05/04/16 06:56 Magnesium Sulfate/ Sodium Chloride (Magnesium Sulfate Inj/NS Inj) 108 ml @ 108 mls/hr UNSCH PRN IV MAGNESIUM LESS THAN 2 05/03/16 12:30 Acetaminophen 650 mg 650 mg Q4H PRN PO TEMPERATURE > 101.5 F 05/03/16 12:30 05/08/16 10:38 Potassium Chloride 100 ml @ 50 mls/hr Q2H PRN IV For Potassium 2.8 - 3.2 mEq/L 05/04/16 08:45 Potassium Chloride (KCl 20 Meq Premix Inj) 100 ml @ 50 mls/hr Q2H PRN IV For Potassium 2.8 - 3.2 mEq/L 05/04/16 08:45 Potassium Chloride 40 meq 40 meq UNSCH PRN PO/TUBE For Potassium 3.3 - 3.5 mEq/L 05/04/16 08:45 Potassium Chloride 100 ml @ 25 mls/hr UNSCH PRN IV For Potassium 3.3 - 3.5 mEq/L 05/04/16 08:45 Potassium Chloride 100 ml @ 50 mls/hr Q2H PRN IV For Potassium 3.3 - 3.5 mEq/L 05/04/16 08:45 Magnesium Sulfate/ Sodium Chloride (Magnesium Sulfate Inj/NS Inj) 100 ml @ 50 mls/hr UNSCH PRN IV For Magnesium 0.9 - 1.1 mg/dL 05/04/16 08:45 Magnesium Oxide 800 mg 800 mg UNSCH PRN PO For Magnesium 1.2 - 1.6 mg/dL 05/04/16 08:45 Magnesium Sulfate/ Sodium Chloride (Magnesium Sulfate Inj/NS Inj) 100 ml @ 50 mls/hr UNSCH PRN IV For Magnesium 1.2 - 1.6 mg/dL 05/04/16 08:45 Potassium Phosphate 2000 mg 2,000 mg Q4H PRN PO For Phosphorus < 2.5 mg/dL 05/04/16 08:45 Sodium Phosphate/ Sodium Chloride (Sodium Phosphate Inj/NS 250 ml Inj) 250 ml @ 42 mls/hr UNSCH PRN IV For Phosphorus < 2.5 mg/dL 05/04/16 08:45 Potassium Chloride (KCl 40 Meq/30 ml Liq) 40 meq UNSCH PRN PO/TUBE SEE LABEL COMMENTS 05/04/16 08:45 Potassium Phosphate 2000 mg 2,000 mg UNSCH PRN PO/TUBE SEE LABEL COMMENTS 05/04/16 08:45 Potassium Phosphate/Sodium Chloride (Potassium Phosphate Inj/NS 250 ml Inj) 260 ml @ 42 mls/hr UNSCH PRN IV SEE LABEL COMMENTS 05/04/16 08:45 Dextrose (D50w (Vial) Inj) 25 ml UNSCH PRN IV HYPOGLYCEMIA-SEE COMMENTS 05/04/16 08:45 05/23/16 04:15 Glucagon (Glucagon Inj) 1 mg UNSCH PRN IM/SQ HYPOGLYCEMIA-SEE COMMENTS 05/04/16 08:45 Insulin Detemir (Levemir Inj) 50 units Q12HR SQ 05/06/16 21:00 05/30/16 10:03 Labetalol HCl (Trandate Inj) 20 mg Q1H PRN IVS SBP greater than 160mm Hg 05/06/16 10:00 05/27/16 12:45 Metoprolol Tartrate (Lopressor Inj) 5 mg Q4H PRN IV PUSH HR > 100 05/06/16 11:00 05/22/16 12:28 Bisacodyl (Dulcolax Supp) 10 mg DAILY RECTAL 05/07/16 09:55 05/16/16 08:24 Polyethylene Glycol (Miralax) 17 gm BID PO 05/06/16 09:55 05/25/16 20:17 Lactulose (Lactulose Liq) 30 ml BID PO 05/06/16 11:00 05/29/16 08:23 Senna/Docusate Sodium (Meaghan-Colace) 1 tab BID PO 05/06/16 10:00 05/25/16 20:17 Miscellaneous (Pill Splitter) 1 ea UNSCH PRN OTHER SEE LABEL COMMENTS 05/06/16 21:00 Amlodipine Besylate (Norvasc) 10 mg DAILY PO 05/09/16 09:00 Hold Hydromorphone HCl (Dilaudid Pf Inj) 0.5 mg Q4H PRN IV PUSH pain 8-10 or not taking po 05/13/16 09:30 05/24/16 10:25 Oxycodone HCl (Roxicodone Intensol Liq) 5 mg Q4H PO 05/13/16 10:00 05/30/16 10:03 Haloperidol Lactate (Haldol Inj) 5 mg Q4H PRN IV agitation 05/13/16 09:30 05/27/16 17:10 Famotidine 20 mg 20 mg BID PO 05/14/16 21:00 05/30/16 10:02 Fluconazole/ Sodium Chloride 50 ml @ 50 mls/hr Q24H IV 05/18/16 14:00 05/29/16 13:38 Potassium Chloride/Sodium Chloride (NS + KCl 20 Meq Inj) 1,000 ml @ 100 mls/hr Q10H IV 05/19/16 10:59 05/30/16 05:17 Pantoprazole Sodium (Protonix Inj) 40 mg DAILY IVP 05/20/16 09:00 05/30/16 10:02 Chlorhexidine Gluconate (Peridex 0.12% Liq) 15 ml BID@08,20 MT 05/19/16 20:00 05/30/16 10:01 Miscellaneous Information 1 Q361D XX 05/19/16 14:15 Chlorhexidine Gluconate (Chlorhexidine 2% Cloth) Taper DAILY@04 TOP 05/20/16 04:00 05/16/17 03:59 05/24/16 06:08 Chlorhexidine Gluconate (Chlorhexidine 2% Cloth) 3 pack UNSCH PRN TOP HYGIENIC CARE 05/19/16 14:15 Labetalol HCl (Trandate) 200 mg Q8HR PO 05/22/16 14:00 05/30/16 05:17 Hydralazine HCl (Apresoline Inj) 20 mg Q30M PRN IV PUSH SYS BP GREATER THAN 150 MMHG 05/24/16 12:30 05/30/16 02:32 Lisinopril (Prinivil) 20 mg Q12HR PO 05/24/16 21:00 05/30/16 10:02 Metoprolol Tartrate (Lopressor) 100 mg Q12HR PO 05/24/16 21:00 05/30/16 09:00 Furosemide (Lasix Inj) 20 mg DAILY IV PUSH 05/27/16 13:00 05/30/16 10:01 Insulin Aspart (NovoLOG SUPPLEMENTAL SCALE) 1 Q6HR SQ 05/28/16 18:00 (Bri Merchant) Medical Decision Making MDM Remarks 65 y/o female with cerebellar bleed s/p posterior fossa craniectomy with evacuation of hematoma, neuro slowly improving hydrocephalus following clamping of EVD, s/p placement of ventriculoperitoneal shunt 05/19/16 CT Brain 05/21 with small acute on chronic left SDH, shunt pressure raised to 160 mm H20 (Bri Merchant) Plan Plan Remarks doing well, neuro slowly improving, stable exam clear to dc from NRS standpoint dc planning to LTAC when bed available (Bri Merchant) Attending Statement The exam, history, and the medical decision-making described in the above note were completed with the assistance of the mid-level provider. I reviewed and agree with the findings presented. I attest that I had a [id number] encounter with the patient on the same day, and personally performed and documented my assessment and findings in the medical record. (Oumar Chavez MD) Bri Merchant May 30, 2016 10:40 Oumar Chavez MD May 30, 2016 19:35
--- NOTE | 2016-05-30 11:40 | HHI.DS ---
Discharge Summary Admission Date May 03, 2016 at 02:06 Admitting Diagnosis intracranial hemorrhage. Coagulopathy. Brief History 65 years old female was brought in by EMS for stroke alert. Patient has history of multiple strokes in the past. Patient has residual left-sided weakness from the strokes. Patient has an Antiphospholipid syndrome and is on Coumadin. Patient was sitting down watching TV with her then patient started became more unresponsive, having aphasia, nausea vomiting, dizziness, increasing left-sided weakness. EMS was called. Patient was brought to ED stroke alert. CT head revealed large posterior fossa ICH. CBC/BMP: 05/27/16 0353 Imaging Last Impressions Head CT 05/21/16 0000 Signed Impressions: Service Date/Time: Saturday, May 21, 2016 11:23 - CONCLUSION: 1. Postsurgical changes in the posterior fossa on the left stable compared to previous. 2. Ventriculostomy in good position. 3. Old infarct involving the white matter of the centrum semiovale on the right. 4. Small area of subdural hemorrhage both acute and chronic along the left frontal lobe resolving as compared to previous. Vitor Pickett MD Gastrostomy Tube Placement 05/13/16 0000 Signed Impressions: Service Date/Time: May 15:06 - CONCLUSION: Uncomplicated gastrojejunostomy tube placement as above. Timmy Stevens MD Chest X-Ray 05/10/16 0600 Signed Impressions: Service Date/Time: Tuesday, May 10, 2016 05:01 - CONCLUSION: Clear lungs. Cesar Meza MD Abdomen X-Ray 05/10/16 0000 Signed Impressions: Service Date/Time: Tuesday, May 10, 2016 13:29 - CONCLUSION: Tip of the feeding tube is noted within the expected region of the proximal duodenum. Enzo Umana MD Upper Extremity Ultrasound 05/09/16 0000 Signed Impressions: Service Date/Time: Monday, May 09, 2016 11:54 - CONCLUSION: No DVT in either arm. Santana Mena MD Lower Extremity Ultrasound 05/09/16 0000 Signed Impressions: Service Date/Time: Monday, May 09, 2016 11:29 - CONCLUSION: No DVT in either leg. Santana Mena MD Abdomen/Pelvis CT 05/09/16 0000 Signed Impressions: Service Date/Time: Monday, May 09, 2016 23:37 - CONCLUSION: 1. Body wall edema, hepatomegaly and chronic pancreatitis calcifications are seen as well as mild peripancreatic edema and fluid consistent with superimposed mild acute pancreatitis. 2. Nonobstructing renal calculi. 3. Bilateral pleural effusions. 4. Atherosclerosis. Cesar Meza MD PE at Discharge HEENT: Pupils reactive to light. Neck: Trach site clean. Dry. Chest/Pulm: Clear, no wheezing or crackles. Comfortable on T piece CVS: S1-S2 regular, no murmur, No JVD. GI/abdomen: Soft, nontender, nondistended, bowel sounds active. Extremities: Warm bilaterally, tr+ edema, remains well perfused. Neuro: Pupils reactive to light. Withdraws bilateral lower extremities to pain. Hospital Course 05/03: 65 years old female was brought in by EMS for stroke alert. Patient has history of multiple strokes in the past. Patient has residual left-sided weakness from the strokes. Patient has an Antiphospholipid syndrome and is on Coumadin. Patient was sitting down watching TV with her then patient started became more unresponsive, having aphasia, nausea vomiting, dizziness, increasing left-sided weakness. EMS was called. Patient was brought to ED stroke alert. CT head revealed large posterior fossa ICH. 05/04: Remains sedated, orally intubated on mechanical ventilation. Underwent suboccipital decompression on 05/03. Ventriculostomy in place. ICPs below 10. Drained 150 cc CSF overnight 05/05: acutely this afternoon, her SBP increased from 150s to 200s. neuro exam unchanged, remains sedated on propofol without sedation vacation today per nsgy. pupillary exam unchanged, 2mm equal, reactive. required labetalol 60mg iv , esmolol 150mcg/kg/min, and cardene 15mg/hr to bring back down to goal SBP 150s. EVD still at 0 per nsgy. ICP in lateral ventricles 1. 2/2: severely hypertensive and febrile. re-cultured overnight. sputum growing GNR. 05/07: Patient remains hypertensive currently on nicardipine and esmolol infusions. Instructions given to titrated up nicardipine, start Norvasc 5 mg daily. Sputum culture with pansensitive Klebsiella. at the bedside updated 05/08: No improvement in neuro status. Continues to spike fever 103.3 MAXIMUM TEMPERATURE. Off nicardipine and esmolol. We'll start scheduled Tylenol and cooling blanket. repeat bruce culture 05/09: Continues to have persistent fever MAXIMUM TEMPERATURE 102, white count remains at 16,000. ID consulted also have ordered a lipase, US liver, venous ultrasound of all extremities. I will also change the central line, and give single dose of vancomycin 05/10: MAXIMUM TEMPERATURE is 102, but currently afebrile. Hemoglobin dropped to 6.8, WBC count 17.1. Sodium 152. Neuro exam remains unchanged. Venous ultrasound negative. Appreciate ID and GI consult. Started on Levophed 4 mcg/ min today 05/11: Tmax 101.4, but fever trending down. WBC 17. Hb 7.2. Transfuse 1U PRBC. Na 150. Off Levophed now, hypertensive. BP Labile. All cultures negative 05/12: Afebrile white count trending down 14,000 today. Restart her on Cardene infusion for hypotension. Plan for OR trach today by Dr. Mcfarlane 05/13: s/p trach yesterday. plan for IR to place G-J tube today. neurosurgery challenging EVD today- raised to 10. weaning sedation. poor neurologic exam persists. 05/14: EVD put out 90cc/24h at 10. no neuro improvements. 05/15: EVD put out 25cc/24h at 15. no neuro changes. Na slowly normalizing. also with significant yeast infection over back of neck. 05/16: EVD clamped at 08:30am. ICP stable. persistently poor neuro exam. Na continues to normalize. will trial CPAP today. 05/17: EVD remains clamped, ICP stable, CT head stable with mild ventricular enlargement. Neuro exam remains unchanged. Tolerated 3 hours C Pap yesterday, attempt 1-2 hours T piece trial yesterday 05/18: No significant events overnight. For HYDRAULICS ENGINEER shunt tomorrow. Sodium normalized , will hold free water and restart when Na shows direction. 05/19: Back from OR after shunt. Stable hemodynamics, sats 97% 05/20: Shunt looks good on head CT. Ready for transfer to LTAC when OK with Neurosurgery. 05/21: Small left frontal SDH. Tolerating PSV. 05/22: Tolerating flow by / T-piece. Episodic hypertensive urgency. 05/23: Continues to tolerate flow-by tracheostomy ventilation. No neurological improvement. 05/24: Continuing long-term weaning trials. Last up to 12 hours. PRVC hs. 05/25: Continuing vent weaning. BP control much improved with additional scheduled meds. 05/26: Little neurological improvement. Breathing stronger. 05/27: Continue weaning trials. 05/27: Continue weaning trials. 05/28: Long-term vent weaning problem. Pneumonia largely resolved. Arrangements for transfer to LTAC underway. 05/30: On T piece. transfer to LTAC [facility] as cleared by neurosurgery. A/P Problem List: (1) Intracranial hemorrhage ICD Code: I62.9 Status: Acute (2) Respiratory failure with hypoxia ICD Code: J96.91 Status: Acute (3) Hypertension ICD Code: I10 Status: Acute (4) Atrial fibrillation ICD Code: I48.91 Status: Acute (5) Coagulopathy ICD Code: D68.9 Status: Acute (6) Diabetes ICD Code: E11.9 Status: Acute Assessment and Plan Neuro: Intracranial hemorrhagic stroke/large acute posterior fossa hemorrhage with intraventricular extension Acute encephalopathy - s/p posterior decompression on 05/04 - s/p hyperosmolar therapy. - EVD, monitor ICP. Keppra for seizure prophylaxis. Neurosurgery Dr. Chavez - EVD clamped yesterday, ICP remained stable, CT of the head remained stable except mild ventriculomegaly. EVD removal per Dr. Chavez - Scheduled Tylenol for fever - Haldol prn for agitation - oxycodone and hydromorphone for agitation or tachypnea/ vent synchrony - Trial dose of Provigil on 05/14 without effect. did not continue. --Permanent V-P shunt functioning well Resp: Acute hypoxic and hypercarbic Respiratory failure - continue mechanical ventilation as needed. - - s/p trach 05/[address] Dent - Shahida `q 6 hour and PRN - T-piece trial daily - last 10 -12 hours. CVS Hypertension - Continue labetalol to 200mg po q8h. - Holding amlodipine. - Hydralazine 20mg iv q20min and labetalol 20mg iv q1h for SBP >180 - Metoprolol 5mg iv q4h prn for HR > 100. - SBP goal <150, better controlled today. - rate controlled - Now on lisinopril, taper labetalol, continue lopressor HEME Coagulopathy - reversed Coumadin with Vit K, FFP and Kcentra on admission. ENDO DM -Levemir 50 units [id number]. High-dose sliding scale insulin. 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 - EGD/colonoscopy 03/15/15- no evidence of upper bleed, colonoscopy revealed active bleeding through out the colon with poor visualization. - S/P bleed scan 03/14/15- positive potentially duodenal. S/P Angiogram of GDA, right colic, ileocolic, and SMA - Rpt. Colonoscopy (03/17/15)---> Colonic polyp, rectal ulcer, indurated area in ascending colon biopsied -continue free water 300mL q4h per tube-reduce to 100ml q6 -serum Na normalizing slowly. - TF at goal, tolerated. -Lipase level acceptable 05/22 ID Persistent fever/leukocytosis-now fevere has resolved - Leukocytosis noted. bruce cultured-neg to date. Continue vancomycin Azactam and Levaquin, and Diflucan. ID Dr. Kin Adan. De-escalate therapy per Dr. Adan - Pansensitive Klebsiella in sputum -> resolved. DVT/GI prophylaxis - TEDs/SCDs/Pepcid OVERALL IMPRESSION: Now has permanent shunt. Sustains T-piece for 1/2 day. Needs long-term vent weaning. Blood pressure control acceptable. Transfer to LTAC Pt Condition on Discharge: Fair Discharge Disposition: Disch to Another Hospital Discharge Instructions DIET: Follow Instructions for: On Tube Feeding Activities you can perform: Non Weight Bearing Rj Perea MD May 30, 2016 11:40
[2016-05-30] MEDS: FLUCONAZOLE 100 MG PREMIX BAG 50 ML IV SCH (13:50)
== END 2016-05-30 15:30 | DRG 3 ==
LOC: NEPC 01:10 → NEDA 02:06 → N03B 02:42
PROVIDERS: ADMIT Internal Medicine Critical Care Medicine; ATTEND Internal Medicine Critical Care Medicine
PROC: 00CC0ZZ Extirpation of Matter from Cerebellum, Open Approach (ICD-10-PCS; 2016-05-03)
PROC: 00U20KZ Supplement Dura Mater with Nonautologous Tissue Substitute, Open Approach (ICD-10-PCS; 2016-05-03)
PROC: 0BH17EZ Insertion of Endotracheal Airway into Trachea, Via Natural or Artificial Opening (ICD-10-PCS; 2016-05-03)
PROC: 5A1955Z Respiratory Ventilation, Greater than 96 Consecutive Hours (ICD-10-PCS; 2016-05-03)
PROC: 03HY32Z Insertion of Monitoring Device into Upper Artery, Percutaneous Approach (ICD-10-PCS; 2016-05-03)
PROC: 02HV33Z Insertion of Infusion Device into Superior Vena Cava, Percutaneous Approach (ICD-10-PCS; 2016-05-03)
PROC: 30233K1 Transfusion of Nonautologous Frozen Plasma into Peripheral Vein, Percutaneous Approach (ICD-10-PCS; 2016-05-03)
PROC: 009630Z Drainage of Cerebral Ventricle with Drainage Device, Percutaneous Approach (ICD-10-PCS; principal; 2016-05-03 11:48)
PROC: 05H533Z Insertion of Infusion Device into Right Subclavian Vein, Percutaneous Approach (ICD-10-PCS; 2016-05-09)
PROC: 30233N1 Transfusion of Nonautologous Red Blood Cells into Peripheral Vein, Percutaneous Approach (ICD-10-PCS; 2016-05-10)
PROC: 0B113F4 Bypass Trachea to Cutaneous with Tracheostomy Device, Percutaneous Approach (ICD-10-PCS; 2016-05-12)
PROC: 5A1955Z Respiratory Ventilation, Greater than 96 Consecutive Hours (ICD-10-PCS; 2016-05-12)
PROC: 0DHA3UZ Insertion of Feeding Device into Jejunum, Percutaneous Approach (ICD-10-PCS; 2016-05-13)
PROC: 00160J6 Bypass Cerebral Ventricle to Peritoneal Cavity with Synthetic Substitute, Open Approach (ICD-10-PCS; 2016-05-19)
PROC: 00P Central Nervous System and Cranial Nerves, Removal (ICD-10-PCS; 2016-05-19)
DX: I61.4 Nontraumatic intracerebral hemorrhage in cerebellum (principal); J15.0 Pneumonia due to Klebsiella pneumoniae; G93.40 Encephalopathy, unspecified; K85.90 Acute pancreatitis without necrosis or infection, unspecified; J90 Pleural effusion, not elsewhere classified; G91.9 Hydrocephalus, unspecified; I95.9 Hypotension, unspecified; J96.01 Acute respiratory failure with hypoxia; J96.02 Acute respiratory failure with hypercapnia; D68.61 Antiphospholipid syndrome; K86.1 Other chronic pancreatitis; R47.01 Aphasia; I69.354 Hemiplegia and hemiparesis following cerebral infarction affecting left non-dominant side; B37.49 Other urogenital candidiasis; J44.0 Chronic obstructive pulmonary disease with (acute) lower respiratory infection; I48.91 Unspecified atrial fibrillation; I10 Essential (primary) hypertension; I62.01 Nontraumatic acute subdural hemorrhage; I62.03 Nontraumatic chronic subdural hemorrhage; E11.65 Type 2 diabetes mellitus with hyperglycemia; I16.0 Hypertensive urgency; D64.9 Anemia, unspecified; F17.210 Nicotine dependence, cigarettes, uncomplicated; E78.5 Hyperlipidemia, unspecified; Z79.01 Long term (current) use of anticoagulants; Z79.4 Long term (current) use of insulin; Z85.828 Personal history of other malignant neoplasm of skin; Z88.1 Allergy status to other antibiotic agents; Z91.040 Latex allergy status; R40.2430 Glasgow coma scale score 3-8, unspecified time
CPT/HCPCS: 31500; 36430; 36556; 43753; 49440; 49446; 51702; 61210; 70450; 71010; 74000; 74177; 76937; 76942; 80048; 80053; 80076; 80202; 80307; 81001; 81003; 82435; 82550; 82565; 82784; 82787; 82805; 82945; 82947; 82948; 83690; 83735; 83930; 84132; 84155; 84157; 84295; 84484; 84520; 85007; 85014; 85018; 85025; 85027; 85384; 85610; 85730; 86256; 86850; 86900; 86901; 86920; 86927; 87040; 87070; 87071; 87077; 87086; 87102; 87186; 87205; 87206; 87641; 88304; 88307; 89051; 93005; 93970; 94002; 94003; 94640; 94664; 94770; 95819; 96374; C1713; C1768; C1769; C9113; C9132; J0131; J0171; J0360; J0461; J0690; J1100; J1170; J1450; J1580; J1630; J1815; J1817; J1940; J1953; J1956; J2150; J2250; J2270; J2370; J2405; J2997; J3010; J3370; J3430; J3480; J7030; J7040; J7050; J7120; P9016; P9017; Q9963; Q9967

== ENCOUNTER 2016-06-28 01:33 | Inpatient (IN) | payer MEDICARE ==
[2016-06-28] VITALS (18 sets, daily range): BP systolic 118–171; BP diastolic 54–81; PULSE 66–82; RESP 16–24; TEMP 97.6–99.7; O2SAT 95–100
[~2016-06-28] VITALS: Ht 165.1 cm; Wt 81.0 kg
[~2016-06-28 01:33] MED LIST changes: +ACET-703 PO; -ALBI1INJ SQ; +ALBI1INJ2 SQ; +ALBU0.08 NEB; -ALLBC PO; -B-12500T3 PO; -CELE20TA PO; -CHOL4 PO; +CITA20TA4 PO; -CLON.1 PO; +CLON0.1T PO; +DIGO0.25 PO; -DUONI INH; +FENO145T2 PO; -FENO50TA PO; -FURO1TAB93 PO; +FURO40TA PO; -GABA400 PO; +GABA400C5 PO; -HEMOTAB PO; +HYDR-3516 PO; -LANO0.2510 PO; -LISI-363 PO; +LISI40TA PO; -LORTA5 PO; +MAGN400C2 PO; -METO50TA PO; +NOVOINJ6 SQ; -NOVONP2 SQ; -OMEG100037 PO; -ONETAB13 PO; -PANT20 PO; +PANT20TA2 PO; +POTA595T PO; -POTA595T5 PO; -SIMV20 PO; +SIMV20TA PO; -SLOWTAB PO; -TYLE500T PO; -VITA100017 PO; +VITA10002 PO; +VITA10007 PO; -VITA400C70 PO; -VITATAB25 PO; +WARF-23 PO; -WARF5TAB PO; +[UNRECOGNIZED DRUG - CODE] PO
[2016-06-28] MEDS ORDERED: SODIUM CHLORIDE 0.9% FLUSH 10 ML FLUSH IVF PRN (02:00)
[2016-06-28 02:17] LABS: AUTOMATED NEUTROPHIL # 6.1 TH/MM3 (1.8-7.7); BASOPHIL # 0.1 TH/MM3 (0-0.2); BASOPHIL % 0.9 % (0.0-2.0); EOSINOPHIL # 0.4 TH/MM3 (0-0.4); EOSINOPHIL % 4.3 % (0.0-4.0); HEMATOCRIT 32.5 % (35.0-46.0); HEMO FLAGS DIFF FINAL; LYMPHOCYTE # 1.8 TH/MM3 (1.0-4.8); MEAN CORPUSCULAR HEMOGLOBIN 26.9 PG (27.0-34.0); MEAN CORPUSCULAR HGB CONC 33.3 % (32.0-36.0); MONO % 9.8 % (0.0-8.0); PLATELET COUNT 199 TH/MM3 (150-450); RED BLOOD COUNT 4.01 MIL/MM3 (4.00-5.30); RED CELL DISTRIBUTION WIDTH 15.7 % (11.6-17.2); WHITE BLOOD COUNT 9.3 TH/MM3 (4.0-11.0)
[2016-06-28 02:29] LABS: APTT (PATIENT) 25.3 SEC (24.3-30.1); PROTHROMBIN TIME - PATIENT 10.7 SEC (9.8-11.6)
[2016-06-28 02:32] LABS: BICARBONATE 29.2 MEQ/L (21.0-32.0); POTASSIUM 3.7 MEQ/L (3.5-5.1)
--- NOTE | 2016-06-28 03:12 | RADRPT ---
EXAM DATE/TIME: 06/28/2016 02:15 [facility] COMPARISON: CHEST SINGLE AP, May 10, 2016, 5:01. INDICATIONS : Syncope. Respiratory distress. MEDICAL HISTORY : None. SURGICAL HISTORY : None. ENCOUNTER: Initial ACUITY: 1 day PAIN SCORE: Non-responsive. LOCATION: Bilateral chest FINDINGS: A single view of the chest demonstrates the lungs to be symmetrically aerated without evidence of mas s, infiltrate or effusion. The cardiomediastinal contours are unremarkable. Osseous structures are intact. PHARMACEUTICAL LABORATORY TECHNICIAN shunt catheter seen the left. Tracheostomy tube with tip in the mid trachea. CONCLUSION: Tracheostomy tube. Lungs are clear. Santana Mena MD on June 28, 2016 at 3:09 Board Certified Radiologist. This report was verified electronically.
--- NOTE | 2016-06-28 03:17 | RADRPT ---
EXAM DATE/TIME: 06/28/2016 02:27 [facility] COMPARISON: No previous studies available for comparison. INDICATIONS : Trach position. MEDICAL HISTORY : None. SURGICAL HISTORY : None. ENCOUNTER: Initial ACUITY: 1 day PAIN SCORE: Non-responsive. LOCATION: Left neck FINDINGS: Two view examination of the soft tissues of the neck demonstrates the hypopharyngeal airway to have a grossly normal configuration. The trachea is midline. No radiopaque foreign bodies are seen. CONCLUSION: Unremarkable soft tissue neck. Tracheostomy tube is seen at about T1-2 level. Santana Mena MD on June 28, 2016 at 3:13 Board Certified Radiologist. This report was verified electronically.
[2016-06-28 04:09] LABS: BACTERIA, URINE MANY /hpf; BLOOD, URINE NEG (NEG); COMMENT (UR) CATH-CULTURE IND; CULTURE IF INDICATED CATH CULTURE IND; GLUCOSE,URINE NEG (NEG); KETONE, URINE NEG (NEG); MUCUS URINE FEW /lpf (OCC); NITRITE,URINE NEG (NEG); URINE COLOR YELLOW (YELLW/STRAW)
--- NOTE | 2016-06-28 04:54 | PD ---
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 She self discontinued her tracheostomy. EMS arrives with patient stating that she is at her baseline more or less which is nonverbal with hemiparesis on the left side and occasional movements of the right upper extremity. On scene her O2 sat was in the high 90s. She had a blood pressure 115/80 and a heart rate of 80. They did suction the tracheostomy site en route. They note she might have a UTI and possibly a pneumonia. The patient cannot offer much historical detail. She was admitted here for some weeks after a hemorrhagic stroke. Tracheostomy was placed during her stay. PFSH Past Medical History Hx Anticoagulant Therapy: Yes Arthritis: Yes Asthma: No Blood Disorders: Yes (clotting disorder) Anxiety: No Depression: No Heart Rhythm Problems: No Cancer: Yes (SKIN CA) Cardiovascular Problems: Yes (HTN) High Cholesterol: Yes Chemotherapy: No Chest Pain: Yes (COPD) Congestive Heart Failure: No COPD: Yes Cerebrovascular Accident: Yes (2002 ) Diabetes: Yes Patient Takes Glucophage: No Diminished Hearing: No Endocrine: Yes Gastrointestinal Disorders: Yes GERD: Yes Genitourinary: Yes (renal stent) Hiatal Hernia: Yes Hypertension: Yes Immune Disorder: Yes (lupus) Kidney Stones: Yes Musculoskeletal: Yes Psychiatric: No Reproductive: No Respiratory: Yes (COPD) Migraines: Yes (OCCASIONALLY) Radiation Therapy: No Renal Failure: No Seizures: No Sleep Apnea: No Thyroid Disease: No Ulcer: No Tetanus Vaccination: Unknown Past Surgical History Abdominal Surgery: Yes (CHOLECYSTECTOMY, APPENDECTOMY) Cardiac Surgery: No Cholecystectomy: Yes Ear Surgery: No Endocrine Surgery: No Eye Surgery: No Genitourinary Surgery: Yes (KIDNEY STONE SX) Gynecologic Surgery: Yes (HYSTERECTOMY) Hysterectomy: Yes (1996) Oral Surgery: Yes ( ) Thoracic Surgery: No Tonsillectomy: Yes Other Surgery: Yes (SKIN GRAFTS) Social History Alcohol Use: No (PT INTUBATED UNABLE TO ASSESS) Tobacco Use: Yes (hx ppd) Allergies-Medications (Allergen,Severity, Reaction): Coded Allergies: Rocephin (Verified Allergy, Severe, HIVES, 06/28/16) Latex (Verified Allergy, Intermediate, Rash, 06/28/16) Reported Meds & Prescriptions Reported Meds & Active Scripts Active Levaquin (Levofloxacin) 500 Mg Tab 500 Mg PO DAILY 5 Days Reported Clonidine (Clonidine HCl) 0.1 Mg Tab 0.1 Mg PO TID PRN Pantoprazole (Pantoprazole Sodium) 20 Mg Tab 20 Mg PO BID Albuterol Neb (Albuterol Sulfate) 2.5 Mg/3 Ml Neb 2.5 Mg NEB Q4HR NEB PRN Symbicort Inh (Budesonide/Formoterol Fumarate) 160-4.5 Mcg/Act Aero 2 Puff INH Q12HR Spiriva Handihaler (Tiotropium Inh) 18 Mcg Cap 18 Mcg INH DAILY 1 capsule = 18 mcg Novolin N U-100 Inj (Insulin NPH (Human) (Isophane) Inj) 100 Unit/Ml Inj 70 Units SQ HS Novolin N U-100 Inj (Insulin NPH (Human) (Isophane) Inj) 100 Unit/Ml Inj 60 Units SQ AC BREAKFAST Warfarin 5 Mg Tab 5 Mg PO DAILY E400 (Vitamin E) 400 Unit Cap Cap PO DAILY Vitamin C (Ascorbic Acid) 1,000 Mg Tab 1,000 Mg PO DAILY Tylenol Extra Strength (Acetaminophen) 500 Mg Tab 500 Mg PO Q4-6H PRN Magnesium Oxide 400 Mg Cap Cap PO Mirtazapine 15 Mg Tab 15 Mg PO HS Citalopram (Citalopram Hydrobromide) 20 Mg Tab 20 Mg PO DAILY Vitamin B-12 (Cyanocobalamin) 1,000 Mcg Tab 1,000 Mcg PO DAILY [place]zeum 4-Pack Inj (Albiglutide) 50 Mg Pfpen 50 Mg SQ Q7D Digoxin 0.25 Mg Tab 0.25 Mg PO DAILY Hydrocodone-Acetaminophen 5-325 mg Tab 1 Tab PO BID PRN Gabapentin 400 Mg Cap 400 Cap PO TID Simvastatin 20 Mg Tab 20 Mg PO DAILY Fenofibrate 145 Mg Tab 145 Mg PO DAILY Furosemide 40 Mg Tab 40 Mg PO DAILY Potassium Gluconate 595 Mg Tab PO Q4HR PRN Metoprolol Tartrate 100 Mg Tab 100 Mg PO BID Lisinopril 40 Mg Tab 40 Mg PO DAILY Review of Systems Except as stated in HPI: all other systems reviewed are Neg Physical Exam Narrative GENERAL: 65 F, WNWD SKIN: Focused skin assessment warm/dry. HEAD: Atraumatic. Normocephalic. EYES: Pupils equal and round. No scleral icterus. No injection or drainage. ENT: No nasal bleeding or discharge. Mucous membranes pink and moist. Tracheostomy site clean dry, trace blood about granulation tissue. NECK: Trachea midline. No JVD. CARDIOVASCULAR: Regular rate and rhythm. No murmur appreciated. RESPIRATORY: No accessory muscle use. Clear to auscultation. Breath sounds equal bilaterally. GASTROINTESTINAL: Abdomen soft, non-tender, nondistended. Hepatic and splenic margins not palpable. MUSCULOSKELETAL: No obvious deformities. No clubbing. No cyanosis. No edema. NEUROLOGICAL: LUE/LLE weakness. Non-verbal. Awake. PSYCHIATRIC: Unable to assess. Data Data Last Documented VS Vital Signs Date Time Temp Pulse Resp B/P Pulse Ox O2 Delivery O2 Flow Rate FiO2 06/28/16 06:25 100 T-piece 6.00 28 06/28/16 05:30 74 18 150/67 06/28/16 01:36 97.6 VS reviewed Orders Electrocardiogram (06/28/16 01:49) Basic Metabolic Panel (Bmp) (06/28/16 01:49) Complete Blood Count With Diff (06/28/16 01:49) Prothrombin Time / Inr (Pt) (06/28/16 01:49) Act Partial Throm Time (Ptt) (06/28/16 01:49) Urinalysis - C+S If Indicated (06/28/16 01:49) Chest, Single Ap (06/28/16 01:49) Ecg Monitoring (06/28/16 01:49) Iv Access Insert/Monitor (06/28/16 01:49) Oximetry (06/28/16 01:49) Sodium Chloride 0.9% Flush (Ns Flush) (06/28/16 02:00) ^ Straight Catheter (06/28/16 01:49) Soft Tissue Neck (06/28/16 ) Urine Culture (06/28/16 03:35) Fluconazole (Diflucan) (06/28/16 05:15) Levofloxacin (Levaquin) (06/28/16 05:15) Admit Order (Ed Use Only) (06/28/16 06:29) Labs Laboratory Tests Test 06/28/16 06/28/16 02:10 03:35 White Blood Count 9.3 TH/MM3 Red Blood Count 4.01 MIL/MM3 Hemoglobin 10.8 GM/DL Hematocrit 32.5 % Mean Corpuscular Volume 81.0 FL Mean Corpuscular Hemoglobin 26.9 PG Mean Corpuscular Hemoglobin 33.3 % Concent Red Cell Distribution Width 15.7 % Platelet Count 199 TH/MM3 Mean Platelet Volume 11.4 FL Neutrophils (%) (Auto) 66.0 % Lymphocytes (%) (Auto) 19.0 % Monocytes (%) (Auto) 9.8 % Eosinophils (%) (Auto) 4.3 % Basophils (%) (Auto) 0.9 % Neutrophils # (Auto) 6.1 TH/MM3 Lymphocytes # (Auto) 1.8 TH/MM3 Monocytes # (Auto) 0.9 TH/MM3 Eosinophils # (Auto) 0.4 TH/MM3 Basophils # (Auto) 0.1 TH/MM3 CBC Comment DIFF FINAL Differential Comment Prothrombin Time 10.7 SEC Prothromb Time International 1.0 RATIO Ratio Activated Partial 25.3 SEC Thromboplast Time Sodium Level 135 MEQ/L Potassium Level 3.7 MEQ/L Chloride Level 98 MEQ/L Carbon Dioxide Level 29.2 MEQ/L Anion Gap 8 MEQ/L Blood Urea Nitrogen 23 MG/DL Creatinine 0.62 MG/DL Estimat Glomerular Filtration 96 ML/MIN Rate Random Glucose 150 MG/DL Calcium Level 9.5 MG/DL Urine Color YELLOW Urine Turbidity CLOUDY Urine pH 5.0 Urine Specific [place] 1.019 Urine Protein 30 mg/dL Urine Glucose (UA) NEG mg/dL Urine Ketones NEG mg/dL Urine Occult Blood NEG Urine Nitrite NEG Urine Bilirubin NEG Urine Urobilinogen LESS THAN 2.0 MG/DL Urine Leukocyte Esterase LARGE Urine RBC 8 /hpf Urine WBC /hpf Urine WBC Clumps MANY Urine Bacteria MANY /hpf Urine Mucus FEW /lpf Microscopic Urinalysis Comment CATH-CULTURE IND MDM Medical Decision Making Medical Screen Exam Complete: Yes Emergency Medical Condition: Yes Medical Record Reviewed: Yes Differential Diagnosis tracheostomy replacement, electrolyte imbalance, ams 2/2 infection or polypharmacy Narrative Course CBC & BMP Diagram 06/28/16 02:10 INR 1.0 UA: UTI present Last 24 hours Impressions Chest X-Ray 06/28/16 0149 Signed Impressions: Service Date/Time: Tuesday, June 28, 2016 02:15 - CONCLUSION: Tracheostomy tube. Lungs are clear. Santana Mena MD Soft Tissue Neck X-Ray 06/28/16 0000 Signed Impressions: Service Date/Time: Tuesday, June 28, 2016 02:27 - CONCLUSION: Unremarkable soft tissue neck. Tracheostomy tube is seen at about T1-2 level. Santana Mena MD A 4-0 tracheostomy was placed without difficulty, cuffed, fenestrated. W/u reveals UTI. Levaquin started. Discussed case with ENT and gen surgery who recommend keeping patient for monitoring of tracheostomy. d/w Dr Lr. Diagnosis Primary Impression: Encounter for tracheostomy tube change Additional Impression: UTI (urinary tract infection) Qualified Code: N39.0 - Urinary tract infection with hematuria, site unspecified Admitting Information Admitting Physician Requests: Observation Vitor Camejo MD Jun 28, 2016 04:54
[2016-06-28] MEDS ORDERED: LEVA500T PO (05:09)
[2016-06-28] MEDS ORDERED: FLUCONAZOLE 100 MG TAB PO ONE (05:15)
[2016-06-28] MEDS ORDERED: LEVOFLOXACIN 500 MG TAB PO ONE (05:15)
[2016-06-28] MEDS ORDERED: SODIUM CHLORIDE 0.9% FLUSH 10 ML FLUSH IV FLUSH PRN (06:45)
[2016-06-28] MEDS ORDERED: ONDANSETRON HCL 4 MG/2 ML VIAL IVP PRN (06:45)
[2016-06-28] MEDS ORDERED: RESP: ALBUTEROL 2.5 MG/3 ML NEB (PRN) NEB (06:45)
[2016-06-28] MEDS ORDERED: BISACODYL 10 MG SUPP PR PRN (06:45)
[2016-06-28] MEDS ORDERED: DEXTROSE 50% IN WATER 50 ML VIAL(D50) IV PUSH PRN (06:45)
[2016-06-28] MEDS ORDERED: GLUCAGON 1 MG/ML VIAL OTHER PRN (06:45)
[2016-06-28] MEDS ORDERED: ACETAMINOPHEN 325 MG TAB PO PRN (06:45)
[2016-06-28] MEDS: INSULIN ASPART SUPPLEMENTAL SCALE SQ SCH ×4 (07:00→20:59)
[2016-06-28] MEDS ORDERED: LORazepam 2 MG/ML VIAL IV PUSH PRN (07:00)
[2016-06-28] MEDS ORDERED: AMLO10 PO (08:01)
[2016-06-28] MEDS ORDERED: POTA10SO12 PO (08:03)
[2016-06-28] MEDS ORDERED: LABE200T2 PO (08:08)
[2016-06-28] MEDS ORDERED: FAMO20TA2 PO (08:12)
[2016-06-28] MEDS ORDERED: LEVE500S PO ×2 (08:14→20:19)
[2016-06-28] MEDS ORDERED: LANTUS2P SQ (08:16)
[2016-06-28] MEDS ORDERED: ACET-703 PO (08:24)
[2016-06-28] MEDS: PANTOPRAZOLE SOD 20 MG DELAYED RELEASE TAB PO SCH ×2 (08:37→20:54)
[2016-06-28] MEDS: SODIUM CHLORIDE 0.9% FLUSH 10 ML FLUSH IV FLUSH SCH ×2 (08:39→19:52)
[2016-06-28] MEDS ORDERED: ACET325T PO (08:56)
[2016-06-28] MEDS ORDERED: GABAPENTIN 400 MG CAP PO SCH (09:00)
[2016-06-28] MEDS ORDERED: DIGOXIN 0.25 MG TAB PO SCH (09:00)
[2016-06-28] MEDS ORDERED: BUDESONIDE-FORMOTEROL 160/4.5 MCG INHALER INH SCH (09:00)
[2016-06-28] MEDS ORDERED: LISINOPRIL 20 MG TAB PO SCH (09:00)
[2016-06-28] MEDS ORDERED: CITALOPRAM HYDROBROMIDE 20 MG TAB PO SCH (09:00)
[2016-06-28] MEDS ORDERED: METOPROLOL TARTRATE 100 MG TAB PO SCH (09:00)
[2016-06-28] MEDS ORDERED: TIOTROPIUM BROMIDE 18 MCG INH INH SCH (09:00)
[2016-06-28] MEDS ORDERED: PRAVASTATIN SOD 40 MG TAB PO SCH (09:00)
[2016-06-28] MEDS ORDERED: HUMALOG SQ (09:02)
[2016-06-28] MEDS ORDERED: levETIRAcetam 500 MG/5 ML UDC PO SCH (09:15)
--- NOTE | 2016-06-28 09:16 | HHI.HP ---
[facility] Unknown Admission Diagnosis Replaced Tracheostomy, UTI Diagnoses: Chief Complaint: Tracheostomy removal Travel History International Travel<30 Days: No Contact w/Intl Traveler <30 Da: No Traveled to Known Affected Are: No History of Present Illness This is a 65-year-old female with a recent admission due to intracranial hemorrhage complicated by respiratory failure with tracheostomy placed, history of atrial fibrillation, type 2 diabetes insulin-dependent, antiphospholipid syndrome who presented with removal of her tracheostomy. Patient follows commands but is nonverbal and is at the bedside. Per patient baseline she is not able to move her left side of her upper extremity. But she is able to move her right side and lower extremity. Interview taken from the . Per patient has been stable he felt like there has been no issue. Patient pulled out her trach tube yesterday so presented to the ED. Patient was found to have a UTI in emergency department. Her did not notice any change her behaviors. is requesting Dr. Chavez to see patient in regards to her shot. Patient nurses at the bedside. Per nurse patient med reconciliation was not updated and she asked me to review her med reconciliation again. Review of Systems Unable to obtain since patient is nonverbal. Past Family Social History Past Medical History Afib, HTN Antiphospholipid syndrome, recent abdomen due to intracranial hemorrhage, respiratory failure with hypoxia, type 2 diabetes insulin-dependent Past Surgical History Cholecystectomy, Total hysterectomy, Kidney stone removal, posterior decompression on 05/04 Reported Medications Reported Meds & Active Scripts Active Reported Humalog Inj (Insulin Human Lispro) 1,000 Unit/10 Ml Vial 2-12 Units SQ ACHS SLIDING SCALE Max dose at bedtime:( )units; sugars < 70,(0)units; sugars 150-199,(2)units; sugars 200-249,(4)units; sugars 250-299,(7)units; sugars 300-349,(10)units; sugars more than 349,(12)units. Acetaminophen 325 Mg Tab 650 Mg PO Q4H PRN Lantus Inj (Insulin Glargine) 100 Unit/Ml Inj 20 Units SQ Q12HR Keppra Liq (Levetiracetam) 500 Mg/5 Ml Soln 100 Mg PO BID Give 5ml via G-Tube every 12 hours for Seizures Famotidine 20 Mg Tab 20 Mg PO BID Labetalol (Labetalol HCl) 200 Mg Tab 200 Mg PO TID Give 2 tablet by mouth every 8 hour for HTN Potassium Chloride Liq (Potassium Chloride) 20 Meq/15 Ml Soln 20 Meq PO DAILY Give 15 ml via G-Tube one time a day for replacement therapy Norvasc (Amlodipine Besylate) 10 Mg Tab 10 Mg PO DAILY Pantoprazole (Pantoprazole Sodium) 20 Mg Tab 20 Mg PO BID Albuterol Neb (Albuterol Sulfate) 2.5 Mg/3 Ml Neb 2.5 Mg NEB Q4HR NEB PRN Furosemide 40 Mg Tab 40 Mg PO DAILY Give 1 tablet via G-Tube one time a day for Edema Allergies: Coded Allergies: Rocephin (Verified Allergy, Severe, HIVES, 06/28/16) Latex (Verified Allergy, Intermediate, Rash, 06/28/16) Active Ordered Medications Current Medications Sodium Chloride (NS Flush) 2 ml UNSCH PRN IVF FLUSH AFTER USING IV ACCESS; Start 06/28/16 at 02:00; Stop 06/28/16 at 07:24; Status DC Fluconazole (Diflucan) 150 mg ONCE ONCE PO Last administered on 06/28/16 05: 23; Start 06/28/16 at 05:15; Stop 06/28/16 at 05:16; Status DC Levofloxacin 500 mg 500 mg ONCE ONCE PO Last administered on 06/28/16 05:15; Start 06/28/16 at 05:15; Stop 06/28/16 at 05:16; Status DC Levofloxacin/ Dextrose (Levaquin 750 Mg Premix Inj) 150 ml @ 100 mls/hr Q24H IV ; Start 06/29/16 at 06:00 Dextrose (D50w (Vial) Inj) 25 ml UNSCH PRN IV PUSH HYPOGLYCEMIA-SEE COMMENTS; Start 06/28/16 at 06:45 Glucagon (Glucagon Inj) 1 mg UNSCH PRN OTHER HYPOGLYCEMIA-SEE COMMENTS; Start 06/28/16 at 06:45 Insulin Aspart 1 1 ACHS SLIDING SCALE SQ ; Start 06/28/16 at 07:00 Sodium Chloride (NS 1000 ml Inj) 1,000 ml @ 100 mls/hr Q10H IV Last administered on 06/28/16t 09:24; Start 06/28/16 at 08:00 Sodium Chloride (NS Flush) 2 ml UNSCH PRN IV FLUSH FLUSH AFTER USING IV ACCESS ; Start 06/28/16 at 06:45 Sodium Chloride (NS Flush) 2 ml BID IV FLUSH ; Start 06/28/16 at 09:00 Ondansetron HCl (Zofran Inj) 4 mg Q6H PRN IVP NAUSEA OR VOMITING; Start at 06:45 Bisacodyl (Dulcolax Supp) 10 mg DAILY PRN AL CONSTIPATION; Start 06/28/16 at 06 :45 Acetaminophen (Tylenol) 650 mg Q6H PRN PO FEVER/PAIN SCALE 1 TO 2; Start at 06:45 Albuterol Sulfate (Albuterol Neb) 2.5 mg Q4HR NEB PRN NEB SHORTNESS OF BREATH; Start 06/28/16 at 06:45 Budesonide/ Formoterol Fumarate (Symbicort 160-4.5 Inh) 2 puff Q12HR INH ; Start 06/28/16 at 09:00; Stop 06/28/16 at 09:15; Status DC Citalopram Hydrobromide (CeleXA) 20 mg DAILY PO ; Start 06/28/16 at 09:00; Stop 06/28/16 at 09:15; Status DC Digoxin (Lanoxin) 0.25 mg DAILY PO ; Start 06/28/16 at 09:00; Stop 06/28/16 at 09:15; Status DC Furosemide (Lasix) 40 mg DAILY PO ; Start 06/28/16 at 09:00 Gabapentin (Neurontin) 400 mg TID PO ; Start 06/28/16 at 09:00; Stop 06/28/16 at 09:15; Status DC Insulin Human NPH (NovoLIN N INJ) 70 units HS SQ ; Start 06/28/16 at 21:00; Stop 06/28/16 at 21:00; Status DC Metoprolol Tartrate (Lopressor) 100 mg BID PO ; Start 06/28/16 at 09:00; Stop at 09:15; Status DC Mirtazapine (Remeron) 15 mg HS PO ; Start 06/28/16 at 21:00; Stop 06/28/16 at 21 :00; Status DC Pantoprazole Sodium (Protonix) 20 mg BID PO ; Start 06/28/16 at 09:00 Tiotropium [place] (Spiriva Inh) 18 mcg DAILY INH ; Start 06/28/16 at 09:00; Stop 06/28/16 at 09:15; Status DC Lisinopril (Prinivil) 40 mg DAILY PO ; Start 06/28/16 at 09:00; Stop 06/28/16 at 09:15; Status DC Pravastatin Sodium (Pravachol) 40 mg DAILY PO ; Start 06/28/16 at 09:00; Stop at 09:15; Status DC Lorazepam (Ativan Inj) 1 mg Q3H PRN IV PUSH AGITATION; Start 06/28/16 at 07:00 ; Stop 06/28/16 at 09:15; Status DC Nystatin (Mycostatin Powder) 1 applic Q12HR TOPICAL ; Start 06/28/16 at 21:00; Status UNV Amlodipine Besylate (Norvasc) 10 mg DAILY PO ; Start 06/28/16 at 09:15; Status UNV Famotidine (Pepcid) 20 mg BID PO ; Start 06/28/16 at 09:15; Status UNV Insulin Glargine (Lantus Inj) 20 units Q12HR SQ ; Start 06/28/16 at 21:00; Status UNV Labetalol HCl (Trandate) 200 mg TID PO ; Start 06/28/16 at 13:00; Status UNV Levetriacetam (Keppra Liq) 100 mg BID PO ; Start 06/28/16 at 09:15; Status UNV Family History Noncontributory Social History Patient presented from the rehabilitation center. Physical Exam Vital Signs Vital Signs Date Time Temp Pulse Resp B/P Pulse Ox O2 Delivery O2 Flow Rate FiO2 06/28/16 07:24 72 22 98 Trach Collar 6 06/28/16 07:24 98.8 75 22 132/63 97 Trach Collar 6 06/28/16 06:25 100 T-piece 6.00 28 06/28/16 05:30 74 18 150/67 100 Trach Collar 50 06/28/16 02:08 77 24 171/72 100 Trach Collar 50 06/28/16 02:00 100 15.00 100 06/28/16 02:00 100 15.00 100 06/28/16 02:00 99 T-piece 6.00 50 06/28/16 01:53 100 Non-Rebreather 06/28/16 01:44 70 06/28/16 01:36 97.6 66 18 118/54 100 Physical Exam GENERAL: This is a chronically looking female in no acute distress. SKIN: Patient has a beefy red rash and her groin area and vulvar area. HEAD: No trauma noted. Shunt is noted. EYES: Pupils equal round and reactive. Extraocular motions intact. No scleral icterus. No injection or drainage. ENT: Nose without bleeding, purulent drainage or septal hematoma. Throat without erythema, tonsillar hypertrophy or exudate. Uvula midline. Airway patent. NECK: Trachea midline. No JVD or lymphadenopathy. Supple, nontender, no meningeal signs. Tracheostomy in place CARDIOVASCULAR: Regular rate and rhythm without murmurs, gallops, or rubs. RESPIRATORY: Clear to auscultation. Breath sounds equal bilaterally. No wheezes , rales, or rhonchi. GASTROINTESTINAL: Abdomen soft, non-tender, nondistended. No hepato-splenomegaly , or palpable masses. No guarding. PEG is in place MUSCULOSKELETAL: Patient is able to move her right upper extremity with 4 out of 5 strength. She is able to wiggle her lower extremity but per patient is able to move them more sometimes she does have her bad days. Unable to move her left upper extremity. NEUROLOGICAL: Patient follows commands but will not nod to any questions. Awake. Laboratory Laboratory Tests Test 06/28/16 06/28/16 02:10 03:35 White Blood Count 9.3 Red Blood Count 4.01 Hemoglobin 10.8 Hematocrit 32.5 Mean Corpuscular Volume 81.0 Mean Corpuscular Hemoglobin 26.9 Mean Corpuscular Hemoglobin 33.3 Concent Red Cell Distribution Width 15.7 Platelet Count 199 Mean Platelet Volume 11.4 Neutrophils (%) (Auto) 66.0 Lymphocytes (%) (Auto) 19.0 Monocytes (%) (Auto) 9.8 Eosinophils (%) (Auto) 4.3 Basophils (%) (Auto) 0.9 Neutrophils # (Auto) 6.1 Lymphocytes # (Auto) 1.8 Monocytes # (Auto) 0.9 Eosinophils # (Auto) 0.4 Basophils # (Auto) 0.1 CBC Comment DIFF FINAL Differential Comment Prothrombin Time 10.7 Prothromb Time International 1.0 Ratio Activated Partial 25.3 Thromboplast Time Sodium Level 135 Potassium Level 3.7 Chloride Level 98 Carbon Dioxide Level 29.2 Anion Gap 8 Blood Urea Nitrogen 23 Creatinine 0.62 Estimat Glomerular Filtration 96 Rate Random Glucose 150 Calcium Level 9.5 Urine Color YELLOW Urine Turbidity CLOUDY Urine pH 5.0 Urine Specific [place] 1.019 Urine Protein 30 Urine Glucose (UA) NEG Urine Ketones NEG Urine Occult Blood NEG Urine Nitrite NEG Urine Bilirubin NEG Urine Urobilinogen LESS THAN 2.0 Urine Leukocyte Esterase LARGE Urine RBC 8 Urine WBC Urine WBC Clumps MANY Urine Bacteria MANY Urine Mucus FEW Microscopic Urinalysis Comment CATH-CULTURE IND Date/Time Procedure Status Source Growth 06/28/16 03:35 Urine Culture Received Urine Catheterized Urine Pending Result Diagram: 06/28/16 0210 06/28/16 0210 Imaging Last Impressions Chest X-Ray 06/28/16 0149 Signed Impressions: Service Date/Time: Tuesday, June 28, 2016 02:15 - CONCLUSION: Tracheostomy tube. Lungs are clear. Santana Mena MD Soft Tissue Neck X-Ray 06/28/16 0000 Signed Impressions: Service Date/Time: Tuesday, June 28, 2016 02:27 - CONCLUSION: Unremarkable soft tissue neck. Tracheostomy tube is seen at about T1-2 level. Santana Mena MD Assessment and Plan Assessment and Plan History of respiratory failure with hypoxia recent admission with tracheostomy removal by patient -Tracheostomy replace in the ED. -Consult frame bender for management. -X-ray reviewed and no comp occasions. -Continue to monitor. UTI -Patient allergic to Rocephin so will give Levaquin to cover for Pseudomonas. -We will continue to monitor pending urine culture. Tinea -Will give nystatin powder to skin lesion. -Patient was given a dose of Diflucan. History of recent intracranial hemorrhagic stroke/large acute posterior fossa hemorrhage with intraventricular extension -s/p posterior decompression on 05/[address] Chavez. -Patient on Keppra for prophylaxis. - is requesting for Dr. Chavez to recheck V-P shunt. Will consult Dr. Chavez. Hypertension -Home medication resumed. Antiphospholipid syndrome -Previously on Coumadin but had a large intracranial hemorrhagic stroke. -Coumadin is being held due to the above. Type 2 diabetes insulin-dependent -Resume Lantus 20 units twice a day. -We will put patient on insulin sliding scale. DVT prophylaxis -SCDs. Code Status full Discussed Condition With patient, nurse and Physician Certification 2 Midnight Certification Type: Admission for Inpatient Services Order for Inpatient Services The services are ordered in accordance with Medicare regulations or non- Medicare payer requirements, as applicable. In the case of services not specified as inpatient-only, they are appropriately provided as inpatient services in accordance with the 2-midnight benchmark. Estimated LOS (days): 2 2 days is the estimated time the patient will need to remain in the hospital, assuming treatment plan goals are met and no additional complications. Post-Hospital Plan: [facility] Karen Browne MD Jun 28, 2016 09:16
[2016-06-28] MEDS: SODIUM CHLOR 0.9% 1000 ML INJ 1,000 ML IV SCH ×3 (09:24→20:56)
[2016-06-28] MEDS: FAMOTIDINE 20 MG TAB PO SCH ×2 (10:20→20:54)
[2016-06-28] MEDS: FUROSEMIDE 40 MG TAB PO SCH (10:20)
[2016-06-28] MEDS ORDERED: NUTR-215 TUBE (12:24)
[2016-06-28] MEDS ORDERED: REFRDRO EACH EYE (12:25)
[2016-06-28] MEDS: LABETALOL HCL 200 MG TAB PO SCH ×2 (13:39→17:57)
--- NOTE | 2016-06-28 14:50 | EKG ---
Date Performed: 06/28/2016 Time Performed: 02:30:19 PTAGE: 65 years EKG: Sinus rhythm POSSIBLE INFERIOR MYOCARDIAL INFARCTION BORDERLINE ECG Possible anterior myocardial infarction, Rate has slowed since prior tracing, otherwise largely unchanged PREVIOUS TRACING : 05/03/2016 02.06 DOCTOR: Sav Storey Interpretating Date/Time 06/28/2016 14:49:13
--- NOTE | 2016-06-28 15:33 | RADRPT ---
EXAM DATE/TIME: 06/28/2016 15:00 [place] COMPARISON: CT BRAIN W/O CONTRAST, May 21, 2016, 11:23. INDICATIONS : Altered mental status and general weakness today. RADIATION DOSE: 56.35 CTDIvol (mGy) MEDICAL HISTORY : Stroke. Lupus. Hypertension. SURGICAL HISTORY : Hysterectomy. Craniotomy. Shunt placement ENCOUNTER: Initial ACUITY: 1 day PAIN SCALE: Non-responsive LOCATION: Bilateral head TECHNIQUE: Multiple contiguous axial images were obtained of the head. Using automated exposure control and adj ustment of the mA and/or kV according to patient size, radiation dose was kept as low as reasonably a chievable to obtain optimal diagnostic quality images. FINDINGS: The patient has had a previous left occipital craniotomy. 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 Right cerebellar hemisphere is unremarkable. Supratentorial brain shows marked central and cortical atrophy. There is evidence for an old infarct in the right posterior Sylv[place] region. Mild ventriculomegaly is noted in spite of shunt. These findings were all present on 05/11/16 and unchanged. CONCLUSION: 1. Evidence for previous infarct and left occipital craniotomy all stable in the interval. 2. Disease as described previously has cleared. Pio Pickett MD FACR on June 28, 2016 at 15:25 Board Certified Radiologist. This report was verified electronically.
[2016-06-28] MEDS: RESP: ALBUTEROL 2.5 MG/IPRATROPIUM 0.5 MG NEB (SCH) NEB (19:58)
[2016-06-28] MEDS: NYSTATIN 100,000 U/GM PWD 15 GM BTL TOPICAL SCH (20:54)
[2016-06-28] MEDS: levETIRAcetam 500 MG/5 ML UDC PO SCH (20:54)
[2016-06-28] MEDS ORDERED: MIRTAZAPINE 15 MG TAB PO SCH (21:00)
[2016-06-28] MEDS ORDERED: INSULIN HUMAN NPH 1,000 UNITS/10 ML VIAL SQ SCH (21:00)
[2016-06-29] VITALS (16 sets, daily range): BP systolic 119–153; BP diastolic 61–81; PULSE 68–95; RESP 18–25; TEMP 97.5–98.7; O2SAT 91–98
[2016-06-29 04:09] LABS: AUTOMATED NEUTROPHIL # 4.4 TH/MM3 (1.8-7.7); BASOPHIL # 0.1 TH/MM3 (0-0.2); BASOPHIL % 1.3 % (0.0-2.0); EOSINOPHIL # 0.3 TH/MM3 (0-0.4); EOSINOPHIL % 4.1 % (0.0-4.0); HEMATOCRIT 30.5 % (35.0-46.0); HEMO FLAGS DIFF FINAL; LYMPH % 24.5 % (9.0-44.0); LYMPHOCYTE # 1.8 TH/MM3 (1.0-4.8); MEAN CELL VOLUME 80.3 FL (80.0-100.0); MEAN CORPUSCULAR HGB CONC 33.7 % (32.0-36.0); MONO % 10.1 % (0.0-8.0); PLATELET COUNT 193 TH/MM3 (150-450); RED CELL DISTRIBUTION WIDTH 16.1 % (11.6-17.2); WHITE BLOOD COUNT 7.4 TH/MM3 (4.0-11.0)
[2016-06-29 04:19] LABS: PROTHROMBIN TIME - PATIENT 10.9 SEC (9.8-11.6)
[2016-06-29 04:34] LABS: ALKALINE PHOSPHATASE 132 U/L (45-117); ALT (GPT) 25 U/L (10-53); ANION GAP 9 MEQ/L (5-15); AST (GOT) 18 U/L (15-37); BICARBONATE 28.2 MEQ/L (21.0-32.0); BLOOD UREA NITROGEN 20 MG/DL (7-18); CHLORIDE 102 MEQ/L (98-107); GLOMERULAR FILTRATION RATE 118 ML/MIN (>89); POTASSIUM 3.4 MEQ/L (3.5-5.1); SODIUM (NA) 139 MEQ/L (136-145); TOTAL BILIRUBIN ADULT 0.2 MG/DL (0.2-1.0)
[2016-06-29] MEDS: LEVOFLOXACIN 750 MG PREMIX INJ 150 ML IV SCH (05:49)
[2016-06-29 06:31] LABS: C. DIFF EPI 027 PRESUMPTIVE NEGATIVE (NEGATIVE); C. DIFF TOXIN PCR NEGATIVE (NEGATIVE)
--- NOTE | 2016-06-29 06:57 | MB ---
cc: GORDON KELSEY DATE OF CONSULTATION 06/28/2016 REASON FOR CONSULTATION Respiratory insufficiency and tracheostomy. HISTORY OF PRESENT ILLNESS This is a 65-year-old white female who is a senior living resident who was brought to the emergency room since she pulled out a trache tube that has been placed for a history of stroke and respiratory failure. The patient has had a history of diabetes mellitus insulin dependent, history of atrial fibrillation and a history for anti-phospholipid syndrome. She has weakness of all her limbs except for her right hand and she apparently reached out and pulled her tracheostomy tube out, but it could not be re-inserted. The patient has had a history for atrial fibrillation and antiphospholipid syndrome, history for intracranial hemorrhage and hypoxia. She has diabetes mellitus type 2. PAST SURGICAL HISTORY Includes: 1. Hysterectomy 2. Cholecystectomy 3. Kidney stone removal 4. Posterior decompression for the hemorrhage that was done in April. ALLERGIES ROCEPHIN AND LATEX MEDICATION LIST 1. Keppra 100 mg b.i.d. 2. Famotidine 20 mg p.o. b.i.d. 3. Labetalol 200 mg t.i.d. 4. Potassium chloride 20 mEq daily 5. Norvasc 10 mg a day 6. Protonix 40 mg daily 7. Nebulized albuterol t.i.d. p.r.n. 8. Lasix 40 mg day 9. Lantus insulin 20 units q12 10. Humalog per sliding scale. 11. Symbicort 165 4.5 two puffs b.i.d. 12. Digoxin 0.25 mg at bedtime 13. Metoprolol 100 mg b.i.d. 14. Lorazepam p.r.n. 1 mg. HABITS The patient does not smoke. No recent alcohol. FAMILY HISTORY Noncontributory REVIEW OF SYSTEMS The patient is unable to relate any details. She seems somewhat lethargic and does not volunteer any information. She has a trache tube in place. PHYSICAL EXAMINATION This is a moderately obese elderly lady in bed, pale and in no distress. VITAL SIGNS: Blood pressure 135/70, pulse is 72, respirations 20, temperature 97.5. HEENT: Head normocephalic. Pupils reactive. Tongue is moist. Throat is clear. Nasal mucosa injected. NECK: Supple. No bruits or thyroid enlargement. CHEST: Distant breath sounds with expiratory wheezes throughout both lung duran. No crackles on either side. HEART: The heart sounds regular S1-S2. No murmur. ABDOMEN: Soft, benign. No masses or organomegaly. EXTREMITIES: Weakness of the right extremities and Babinski is equivocal. Reflexes are 1+. SKIN: No lesions observed. IMPRESSION 1. Status post tracheostomy tube removal and respiratory insufficiency 2. History of intracerebral hemorrhage. 3. Status post permanent tracheostomy tube placement and PEG tube. 4. Hypertension 5. Antiphospholipid syndrome PLAN The patient has been placed on T-bar at 28% FIO2 and frequent suctioning endotracheal toilet to be done. Nebulized Albuterol and Atrovent solution to be done q.i.d. also continue with antibiotic therapy as ordered which is for the UTI. A follow up chest x-ray will be done and a CBC as well. The patient is presently stable on T-bar and is at her baseline and if she is stable over the next 24 hours, she could be transferred back to the senior living for outpatient followup. Thank you Dr. Mcclain for this consultation. MD RINA Duncan/YULIYA /11:34 PM /6:44 AM
[2016-06-29] MEDS: INSULIN ASPART SUPPLEMENTAL SCALE SQ SCH ×4 (07:00→21:00)
[2016-06-29] MEDS: RESP: ALBUTEROL 2.5 MG/IPRATROPIUM 0.5 MG NEB (SCH) NEB ×4 (07:47→20:36)
[2016-06-29] MEDS: FAMOTIDINE 20 MG TAB PO SCH ×2 (09:26→22:34)
[2016-06-29] MEDS: SODIUM CHLORIDE 0.9% FLUSH 10 ML FLUSH IV FLUSH SCH ×2 (09:26→21:00)
[2016-06-29] MEDS: FUROSEMIDE 40 MG TAB PO SCH (09:27)
[2016-06-29] MEDS: NYSTATIN 100,000 U/GM PWD 15 GM BTL TOPICAL SCH ×2 (09:27→23:04)
[2016-06-29] MEDS: PANTOPRAZOLE SOD 20 MG DELAYED RELEASE TAB PO SCH ×2 (09:28→22:34)
--- NOTE | 2016-06-29 10:34 | HHI.NSPN ---
Note Status Status: Progress Note Interval History Interval History Ms. Spann is a 65 y/o female who suffered a cerebellar bleed, she underwent posterior fossa craniectomy for evacuation of hematoma and placement of ventriculostomy drain on 05/03/16. She developed hydrocephalus, and a ventriculoperitoneal shunt placement on 05/19/16. Follow up CT Brain on 05/21/16 showed a small acute on chronic left subdural hematoma and her shunt pressure was raised to 160 mm H20. She was subsequently discharged to rehab. She returned to the ED today as she pulled out her tracheostomy piece. Her friend at bedside reprots neurologically Ms. Spann was doing well, she had became more awake and alert, continues to be plegic on the left side, but moves her right side purposefully. A follow up CT Brain yesterday shows resolution of the previous left subdural hematoma as well as improved cerebellar bleed. Ventricular catheter also seen in good position, no acute pathology seen. Labs, Micro, & Vital Signs Results Date Time Temp Pulse Resp B/P Pulse Ox O2 Delivery O2 Flow Rate FiO2 06/29/16 09:00 94 24 150/70 98 T-piece 4 06/29/16 08:00 98 T-piece 4 06/29/16 08:00 95 21 153/72 98 T-piece 4 06/29/16 07:49 93 T-piece 06/29/16 07:15 97.6 94 20 98 T-piece 4 06/29/16 06:12 89 18 119/64 96 T-piece 4 06/29/16 04:43 88 20 153/72 96 T-piece 4 06/29/16 03:22 98.7 88 20 153/72 96 T-piece 4 06/29/16 00:56 84 18 131/64 96 T-piece 4 06/28/16 23:52 77 18 168/81 96 T-piece 4 06/28/16 22:10 74 18 141/63 95 T-piece 4 06/28/16 20:49 99.7 75 18 143/63 95 T-piece 4 06/28/16 20:01 98 T-piece 5.00 06/28/16 19:16 79 18 156/71 97 T-piece 6 06/28/16 17:45 78 18 129/63 96 Trach Collar 06/28/16 16:45 98.5 77 21 125/58 96 Trach Collar 06/28/16 14:04 77 20 168/77 98 Trach Collar 06/28/16 13:04 98.6 82 22 148/69 95 Trach Collar 6 06/28/16 12:00 78 16 126/58 96 Trach Collar Constitutional Vital Signs Date Time Temp Pulse Resp B/P Pulse Ox O2 Delivery O2 Flow Rate FiO2 06/29/16 09:00 94 24 150/70 98 T-piece 4 06/29/16 08:00 98 T-piece 4 06/29/16 08:00 95 21 153/72 98 T-piece 4 06/29/16 07:49 93 T-piece 06/29/16 07:15 97.6 94 20 98 T-piece 4 06/29/16 06:12 89 18 119/64 96 T-piece 4 06/29/16 04:43 88 20 153/72 96 T-piece 4 06/29/16 03:22 98.7 88 20 153/72 96 T-piece 4 06/29/16 00:56 84 18 131/64 96 T-piece 4 06/28/16 23:52 77 18 168/81 96 T-piece 4 06/28/16 22:10 74 18 141/63 95 T-piece 4 06/28/16 20:49 99.7 75 18 143/63 95 T-piece 4 06/28/16 20:01 98 T-piece 5.00 06/28/16 19:16 79 18 156/71 97 T-piece 6 06/28/16 17:45 78 18 129/63 96 Trach Collar 06/28/16 16:45 98.5 77 21 125/58 96 Trach Collar 06/28/16 14:04 77 20 168/77 98 Trach Collar 06/28/16 13:04 98.6 82 22 148/69 95 Trach Collar 6 06/28/16 12:00 78 16 126/58 96 Trach Collar Medications Current Medications Current Medications Medications (Trade) Dose Ordered Sig/Michelle Route PRN Reason Start Time Stop Time Status Last Admin Dose Admin Levofloxacin/ Dextrose (Levaquin 750 Mg Premix Inj) 150 ml @ 100 mls/hr Q24H IV 06/29/16 06:00 06/29/16 05:49 Dextrose (D50w (Vial) Inj) 25 ml UNSCH PRN IV PUSH HYPOGLYCEMIA-SEE COMMENTS 06/28/16 06:45 Glucagon 1 mg 1 mg UNSCH PRN OTHER HYPOGLYCEMIA-SEE COMMENTS 06/28/16 06:45 Sodium Chloride (NS 1000 ml Inj) 1,000 ml @ 100 mls/hr Q10H IV 06/28/16 08:00 06/28/16 20:56 Sodium Chloride (NS Flush) 2 ml UNSCH PRN IV FLUSH FLUSH AFTER USING IV ACCESS 06/28/16 06:45 Sodium Chloride (NS Flush) 2 ml BID IV FLUSH 06/28/16 09:00 06/29/16 09:26 Ondansetron HCl (Zofran Inj) 4 mg Q6H PRN IVP NAUSEA OR VOMITING 06/28/16 06:45 Bisacodyl (Dulcolax Supp) 10 mg DAILY PRN [place] CONSTIPATION 06/28/16 06:45 Acetaminophen (Tylenol) 650 mg Q6H PRN PO FEVER/PAIN SCALE 1 TO 2 06/28/16 06:45 Furosemide (Lasix) 40 mg DAILY PO 06/28/16 09:00 06/29/16 09:27 Pantoprazole Sodium (Protonix) 20 mg BID PO 06/28/16 09:00 06/29/16 09:28 Nystatin (Mycostatin Powder) 1 applic Q12HR TOPICAL 06/28/16 21:00 06/29/16 09:27 Amlodipine Besylate (Norvasc) 10 mg DAILY PO 06/28/16 09:15 06/29/16 09:26 Famotidine (Pepcid) 20 mg BID PO 06/28/16 09:15 06/29/16 09:26 Insulin Detemir (Levemir Inj) 20 units Q12HR SQ 06/28/16 21:15 Labetalol HCl (Trandate) 200 mg TID PO 06/28/16 13:00 06/28/16 17:57 Levetriacetam (Keppra Liq) 500 mg BID PO 06/28/16 21:00 06/28/16 20:54 Medical Decision Making MDM Remarks 65 y/o female with hydrocephalus following cerebellar hemorrhage, she had previous underwent posterior fossa craniectomy for evacuation of cerebellar hematoma and ventriculoperitoneal shunt placement. 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 f/u Head CT 06/28 shows resolution of subdural hygroma, no acute pathology seen, DREDGE ENGINE[employer] shunt intact neurologically better compared to last examination presents back for replacement of tracheostomy Plan Plan Remarks cont medical management cont shunt draining at current setting no neurosurgical intervention planned cont therapy and rehab Bri Merchant Jun 29, 2016 10:34
[2016-06-29] MEDS: levETIRAcetam 500 MG/5 ML UDC PO SCH ×2 (11:19→22:34)
[2016-06-29] MEDS: LABETALOL HCL 200 MG TAB PO SCH ×3 (11:19→17:22)
[2016-06-29] MEDS: INSULIN DETEMIR 100 UNITS/ML VIAL SQ SCH ×2 (11:32→22:32)
[2016-06-29] MEDS: SODIUM CHLOR 0.9% 1000 ML INJ 1,000 ML IV SCH ×2 (13:41→14:54)
--- NOTE | 2016-06-29 16:17 | HHI.PR ---
Subjective Remarks Follow-up for trach removal and replacement and UTI. Patient's sister is at the bedside. Patient is lethargic and not following commands at the moment because she is tired. Per sister at the bedside patient was awake all night because she couldn 't again inflate. Patient had no acute events overnight. I asked sister regards to Rocephin allergy she says she did not know what happened so she will ask her brother who is the . Objective Vitals Vital Signs Date Time Temp Pulse Resp B/P Pulse Ox O2 Delivery O2 Flow Rate FiO2 06/29/16 14:00 79 20 122/62 97 06/29/16 13:00 80 18 132/61 97 T-piece 4 06/29/16 12:00 78 25 129/70 98 T-piece 4 06/29/16 10:00 78 23 153/72 97 T-piece 4 06/29/16 09:00 94 24 150/70 98 T-piece 4 06/29/16 08:00 98 T-piece 4 06/29/16 08:00 95 21 153/72 98 T-piece 4 06/29/16 07:49 93 T-piece 28 06/29/16 07:15 97.6 94 20 98 T-piece 4 28 06/29/16 06:12 89 18 119/64 96 T-piece 4 28 06/29/16 04:43 88 20 153/72 96 T-piece 4 06/29/16 03:22 98.7 88 20 153/72 96 T-piece 4 06/29/16 00:56 84 18 131/64 96 T-piece 4 06/28/16 23:52 77 18 168/81 96 T-piece 4 06/28/16 22:10 74 18 141/63 95 T-piece 4 06/28/16 20:49 99.7 75 18 143/63 95 T-piece 4 06/28/16 20:01 98 T-piece 5.00 06/28/16 19:16 79 18 156/71 97 T-piece 6 06/28/16 17:45 78 18 129/63 96 Trach Collar 06/28/16 16:45 98.5 77 21 125/58 96 Trach Collar Result Diagram: 06/29/16 0345 06/29/16 0345 Objective Remarks GENERAL: In no acute distress NECK: Trachea place. CARDIOVASCULAR: Regular rate and rhythm without murmurs, gallops, or rubs. RESPIRATORY: Breath sounds equal bilaterally. No accessory muscle use. GASTROINTESTINAL: Abdomen soft, non-tender, nondistended. NEURO: Patient tired and did not follow any commands. Use sternal rub she continues to not wake up. Medications and IVs Current Medications Sodium Chloride (NS Flush) 2 ml UNSCH PRN IVF FLUSH AFTER USING IV ACCESS; Start 06/28/16 at 02:00; Stop 06/28/16 at 07:24; Status DC Fluconazole (Diflucan) 150 mg ONCE ONCE PO Last administered on 06/28/16 05: 23; Start 06/28/16 at 05:15; Stop 06/28/16 at 05:16; Status DC Levofloxacin 500 mg 500 mg ONCE ONCE PO Last administered on 06/28/16 05:15; Start 06/28/16 at 05:15; Stop 06/28/16 at 05:16; Status DC Levofloxacin/ Dextrose (Levaquin 750 Mg Premix Inj) 150 ml @ 100 mls/hr Q24H IV Last administered on 06/29/16 05:49; Start 06/29/16 at 06:00 Dextrose (D50w (Vial) Inj) 25 ml UNSCH PRN IV PUSH HYPOGLYCEMIA-SEE COMMENTS; Start 06/28/16 at 06:45 Glucagon (Glucagon Inj) 1 mg UNSCH PRN OTHER HYPOGLYCEMIA-SEE COMMENTS; Start 06/28/16 at 06:45 Insulin Aspart 1 1 ACHS SLIDING SCALE SQ ; Start 06/28/16 at 07:00 Sodium Chloride (NS 1000 ml Inj) 1,000 ml @ 100 mls/hr Q10H IV Last administered on 06/29/16 14:54; Start 06/28/16 at 08:00 Sodium Chloride (NS Flush) 2 ml UNSCH PRN IV FLUSH FLUSH AFTER USING IV ACCESS ; Start 06/28/16 at 06:45 Sodium Chloride (NS Flush) 2 ml BID IV FLUSH Last administered on 06/29/16 09: 26; Start 06/28/16 at 09:00 Ondansetron HCl (Zofran Inj) 4 mg Q6H PRN IVP NAUSEA OR VOMITING; Start at 06:45 Bisacodyl (Dulcolax Supp) [address] CONSTIPATION; Start 06/28/16 at 06 :45 Acetaminophen (Tylenol) 650 mg Q6H PRN PO FEVER/PAIN SCALE 1 TO 2; Start at 06:45 Albuterol Sulfate (Albuterol Neb) 2.5 mg Q4HR NEB PRN NEB SHORTNESS OF BREATH; Start 06/28/16 at 06:45 Budesonide/ Formoterol Fumarate (Symbicort 160-4.5 Inh) 2 puff Q12HR INH ; Start 06/28/16 at 09:00; Stop 06/28/16 at 09:15; Status DC Citalopram Hydrobromide (CeleXA) 20 mg DAILY PO ; Start 06/28/16 at 09:00; Stop 06/28/16 at 09:15; Status DC Digoxin (Lanoxin) 0.25 mg DAILY PO ; Start 06/28/16 at 09:00; Stop 06/28/16 at 09:15; Status DC Furosemide (Lasix) 40 mg DAILY PO Last administered on 06/29/16 09:27; Start 06/28/16 at 09:00 Gabapentin (Neurontin) 400 mg TID PO ; Start 06/28/16 at 09:00; Stop 06/28/16 at 09:15; Status DC Insulin Human NPH (NovoLIN N INJ) 70 units HS SQ ; Start 06/28/16 at 21:00; Stop 06/28/16 at 21:00; Status DC Metoprolol Tartrate (Lopressor) 100 mg BID PO ; Start 06/28/16 at 09:00; Stop at 09:15; Status DC Mirtazapine (Remeron) 15 mg HS PO ; Start 06/28/16 at 21:00; Stop 06/28/16 at 21 :00; Status DC Pantoprazole Sodium (Protonix) 20 mg BID PO Last administered on 06/29/16 09: 28; Start 06/28/16 at 09:00 Tiotropium [place] (Spiriva Inh) 18 mcg DAILY INH ; Start 06/28/16 at 09:00; Stop 06/28/16 at 09:15; Status DC Lisinopril (Prinivil) 40 mg DAILY PO ; Start 06/28/16 at 09:00; Stop 06/28/16 at 09:15; Status DC Pravastatin Sodium (Pravachol) 40 mg DAILY PO ; Start 06/28/16 at 09:00; Stop at 09:15; Status DC Lorazepam (Ativan Inj) 1 mg Q3H PRN IV PUSH AGITATION; Start 06/28/16 at 07:00 ; Stop 06/28/16 at 09:15; Status DC Nystatin (Mycostatin Powder) 1 applic Q12HR TOPICAL Last administered on 09:27; Start 06/28/16 at 21:00 Amlodipine Besylate (Norvasc) 10 mg DAILY PO Last administered on 06/29/16 09: 26; Start 06/28/16 at 09:15 Famotidine (Pepcid) 20 mg BID PO Last administered on 06/29/16 09:26; Start at 09:15 Insulin Detemir (Levemir Inj) 20 units Q12HR SQ Last administered on 06/29/16 11:32; Start 06/28/16 at 21:15 Labetalol HCl (Trandate) 200 mg TID PO Last administered on 06/29/16 11:19; Start 06/28/16 at 13:00 Levetriacetam (Keppra Liq) 100 mg BID PO Last administered on 06/28/16 11:01 ; Start 06/28/16 at 09:15; Stop 06/28/16 at 20:24; Status DC Albuterol/ Ipratropium (Duoneb Neb) 1 ampule QID NEB NEB Last administered on 06/29/16 15:50; Start 06/28/16 at 20:00 Levetriacetam (Keppra Liq) 500 mg BID PO Last administered on 06/29/16 11:19 ; Start 06/28/16 at 21:00 Pneumococcal Polyvalent Vaccine (Pneumovax-23 Inj) 25 mcg ONCE ONCE IM ; Start 06/30/16 at 10:00; Stop 06/30/16 at 10:01; Status Cancel A/P Assessment and Plan History of respiratory failure with hypoxia recent admission with tracheostomy removal by patient -Tracheostomy replace in the ED. -Per home continue with current settings and if patient stable for 24 hours patient's clear from a pulmonary perspective. -X-ray reviewed and no comp occasions. -Continue to monitor. UTI -Patient allergic to Rocephin so will give Levaquin to cover for Pseudomonas. -We will continue to monitor pending urine culture. Currently cultures are growing gram-negative rods. Tinea -on nystatin powder to skin lesion. -Patient was given a dose of Diflucan. History of recent intracranial hemorrhagic stroke/large acute posterior fossa hemorrhage with intraventricular extension -s/p posterior decompression on 05/[address] Chavez. -Patient on Keppra for prophylaxis. -Neurologist stated that patient is stable continue her current shunt settings. Hypertension -Home medication resumed. Antiphospholipid syndrome -Previously on Coumadin but had a large intracranial hemorrhagic stroke. -Coumadin is being held due to the above. Type 2 diabetes insulin-dependent -Resume Lantus 20 units twice a day. -continue SSI DVT prophylaxis -SCDs. Discharge Planning Due to patient being high risk for having multidrug resistant organism will continue with IV antibiotics pending urine cultures. Patient is also more lethargic today so we'll need to monitor. Karen Browne MD Jun 29, 2016 16:17
--- NOTE | 2016-06-29 20:19 | HHI.PR ---
Subjective Remarks Seems stable on T Collar, 28 %. No fever. Trach site is clean. On Antibiotics Objective Vital Signs Date Time Temp Pulse Resp B/P Pulse Ox O2 Delivery O2 Flow Rate FiO2 06/29/16 16:50 98.6 68 20 129/65 97 06/29/16 14:00 79 20 122/62 97 06/29/16 13:00 80 18 132/61 97 T-piece 4 28 06/29/16 12:00 78 25 129/70 98 T-piece 4 28 06/29/16 10:00 78 23 153/72 97 T-piece 4 28 06/29/16 09:00 94 24 150/70 98 T-piece 4 28 06/29/16 08:00 98 T-piece 4 28 06/29/16 08:00 95 21 153/72 98 T-piece 4 28 06/29/16 07:49 93 T-piece 28 06/29/16 07:15 97.6 94 20 98 T-piece 4 28 06/29/16 06:12 89 18 119/64 96 T-piece 4 28 06/29/16 04:43 88 20 153/72 96 T-piece 4 28 06/29/16 03:22 98.7 88 20 153/72 96 T-piece 4 28 06/29/16 00:56 84 18 131/64 96 T-piece 4 28 06/28/16 23:52 77 18 168/81 96 T-piece 4 28 06/28/16 22:10 74 18 141/63 95 T-piece 4 06/28/16 20:49 99.7 75 18 143/63 95 T-piece 4 28 Result Diagram: 06/29/16 0345 06/29/16 0345 Objective Remarks This is a moderately obese elderly lady in bed, pale and in no distress. HEENT: Head normocephalic. Pupils reactive. Tongue is moist. Throat is clear. Nasal mucosa injected. NECK: Supple. No bruits or thyroid enlargement. CHEST: Distant breath sounds with expiratory wheezes over both lung duran. No crackles on either side. HEART: The heart sounds regular S1-S2. No murmur. ABDOMEN: Soft, benign. No masses or organomegaly. EXTREMITIES: Weakness of the right extremities . Reflexes are 1+. SKIN: No lesions observed. Assessment and Plan Assessment and Plan IMPRESSION 1. Status post tracheostomy tube removal and respiratory insufficiency 2. History of intracerebral hemorrhage. 3. Status post permanent tracheostomy tube placement and PEG tube. 4. Hypertension 5. Antiphospholipid syndrome Plan ; 1. Cont on T bar 28 %. 2. Continue christian lopes. 3. Antibiotics as ordered. 4. BMP in am. 5. To SNF anytime Jeanette Ireland MD Jun 29, 2016 20:19
[2016-06-30] VITALS (8 sets, daily range): BP systolic 124–149; BP diastolic 60–74; PULSE 68–97; RESP 18–22; TEMP 97.7–98.3; O2SAT 92–98
[2016-06-30] MEDS: LEVOFLOXACIN 750 MG PREMIX INJ 150 ML IV SCH (06:00)
[2016-06-30] MEDS: INSULIN ASPART SUPPLEMENTAL SCALE SQ SCH ×4 (07:00→21:00)
[2016-06-30 07:07] LABS: HEMATOCRIT 31.9 % (35.0-46.0); MEAN CELL VOLUME 81.1 FL (80.0-100.0); MEAN CORPUSCULAR HEMOGLOBIN 27.3 PG (27.0-34.0); MEAN CORPUSCULAR HGB CONC 33.6 % (32.0-36.0); PLATELET COUNT 198 TH/MM3 (150-450); RED BLOOD COUNT 3.93 MIL/MM3 (4.00-5.30); REVIEW FLAG FINAL; WHITE BLOOD COUNT 8.1 TH/MM3 (4.0-11.0)
[2016-06-30 07:22] LABS: BICARBONATE 27.8 MEQ/L (21.0-32.0); POTASSIUM 3.5 MEQ/L (3.5-5.1)
[2016-06-30] MEDS: RESP: ALBUTEROL 2.5 MG/IPRATROPIUM 0.5 MG NEB (SCH) NEB ×4 (08:07→20:20)
[2016-06-30] MEDS: SODIUM CHLOR 0.9% 1000 ML INJ 1,000 ML IV SCH ×2 (09:31→21:01)
[2016-06-30] MEDS: PANTOPRAZOLE SOD 20 MG DELAYED RELEASE TAB PO SCH ×2 (09:33→21:00)
[2016-06-30] MEDS: INSULIN DETEMIR 100 UNITS/ML VIAL SQ SCH ×2 (09:33→21:00)
[2016-06-30] MEDS: LABETALOL HCL 200 MG TAB PO SCH ×3 (09:33→19:08)
[2016-06-30] MEDS: levETIRAcetam 500 MG/5 ML UDC PO SCH ×2 (09:33→21:00)
[2016-06-30] MEDS: FUROSEMIDE 40 MG TAB PO SCH (09:34)
[2016-06-30] MEDS: FAMOTIDINE 20 MG TAB PO SCH ×2 (09:34→21:00)
[2016-06-30] MEDS: SODIUM CHLORIDE 0.9% FLUSH 10 ML FLUSH IV FLUSH SCH ×2 (09:35→21:00)
[2016-06-30] MEDS: NYSTATIN 100,000 U/GM PWD 15 GM BTL TOPICAL SCH ×2 (09:35→21:00)
[2016-06-30] MEDS ORDERED: PNEUMOCOCCAL POLYVALENT INJ 25 MCG/0.5 ML SYR IM ONE (10:00)
--- NOTE | 2016-06-30 12:43 | HHI.PR ---
Subjective Remarks f/u with UTI and trach placement. patient less lethargic today and is awake. she is following commands. no other issues. tech at bedside and stated she is more alert today. Objective Vitals Vital Signs Date Time Temp Pulse Resp B/P Pulse Ox O2 Delivery O2 Flow Rate FiO2 06/30/16 12:00 98.2 68 18 126/67 96 06/30/16 08:11 97 T-piece 28 06/30/16 08:00 98.1 97 20 149/73 95 06/30/16 04:00 98.0 95 22 148/74 93 06/29/16 23:10 97.5 82 18 125/67 94 06/29/16 20:55 97.5 80 18 146/81 91 06/29/16 20:38 93 T-piece 28 06/29/16 16:50 98.6 68 20 129/65 97 06/29/16 14:00 79 20 122/62 97 06/29/16 13:00 80 18 132/61 97 T-piece 4 28 I/O 06/29/16 06/29/16 06/29/16 06/30/16 06/30/16 06/30/16 07:00 15:00 23:00 07:00 15:00 23:00 Intake Total 0 ml 0 ml Balance 0 ml 0 ml Intake Oral 0 ml 0 ml # Voids 2 1 3 1 # Bowel Movements 2 2 1 Result Diagram: 06/30/16 0545 06/30/16 0545 Objective Remarks GENERAL: In no acute distress NECK: Trach place. CARDIOVASCULAR: Regular rate and rhythm without murmurs, gallops, or rubs. RESPIRATORY: Breath sounds equal bilaterally. No accessory muscle use. GASTROINTESTINAL: Abdomen soft, non-tender, nondistended. NEURO: Patient follow command. Medications and IVs Current Medications Sodium Chloride (NS Flush) 2 ml UNSCH PRN IVF FLUSH AFTER USING IV ACCESS; Start 06/28/16 at 02:00; Stop 06/28/16 at 07:24; Status DC Fluconazole (Diflucan) 150 mg ONCE ONCE PO Last administered on 06/28/16 05: 23; Start 06/28/16 at 05:15; Stop 06/28/16 at 05:16; Status DC Levofloxacin 500 mg 500 mg ONCE ONCE PO Last administered on 06/28/16 05:15; Start 06/28/16 at 05:15; Stop 06/28/16 at 05:16; Status DC Levofloxacin/ Dextrose (Levaquin 750 Mg Premix Inj) 150 ml @ 100 mls/hr Q24H IV Last administered on 06/30/16 06:00; Start 06/29/16 at 06:00 Dextrose (D50w (Vial) Inj) 25 ml UNSCH PRN IV PUSH HYPOGLYCEMIA-SEE COMMENTS; Start 06/28/16 at 06:45 Glucagon (Glucagon Inj) 1 mg UNSCH PRN OTHER HYPOGLYCEMIA-SEE COMMENTS; Start 06/28/16 at 06:45 Insulin Aspart 1 1 ACHS SLIDING SCALE SQ ; Start 06/28/16 at 07:00 Sodium Chloride (NS 1000 ml Inj) 1,000 ml @ 100 mls/hr Q10H IV Last administered on 06/30/16 09:31; Start 06/28/16 at 08:00 Sodium Chloride (NS Flush) 2 ml UNSCH PRN IV FLUSH FLUSH AFTER USING IV ACCESS ; Start 06/28/16 at 06:45 Sodium Chloride (NS Flush) 2 ml BID IV FLUSH Last administered on 06/30/16 09: 35; Start 06/28/16 at 09:00 Ondansetron HCl (Zofran Inj) 4 mg Q6H PRN IVP NAUSEA OR VOMITING; Start at 06:45 Bisacodyl (Dulcolax Supp) 10 mg DAILY PRN [place] CONSTIPATION; Start 06/28/16 at 06 :45 Acetaminophen (Tylenol) 650 mg Q6H PRN PO FEVER/PAIN SCALE 1 TO 2; Start at 06:45 Albuterol Sulfate (Albuterol Neb) 2.5 mg Q4HR NEB PRN NEB SHORTNESS OF BREATH; Start 06/28/16 at 06:45 Budesonide/ Formoterol Fumarate (Symbicort 160-4.5 Inh) 2 puff Q12HR INH ; Start 06/28/16 at 09:00; Stop 06/28/16 at 09:15; Status DC Citalopram Hydrobromide (CeleXA) 20 mg DAILY PO ; Start 06/28/16 at 09:00; Stop 06/28/16 at 09:15; Status DC Digoxin (Lanoxin) 0.25 mg DAILY PO ; Start 06/28/16 at 09:00; Stop 06/28/16 at 09:15; Status DC Furosemide (Lasix) 40 mg DAILY PO Last administered on 06/30/16 09:34; Start 06/28/16 at 09:00 Gabapentin (Neurontin) 400 mg TID PO ; Start 06/28/16 at 09:00; Stop 06/28/16 at 09:15; Status DC Insulin Human NPH (NovoLIN N INJ) 70 units HS SQ ; Start 06/28/16 at 21:00; Stop 06/28/16 at 21:00; Status DC Metoprolol Tartrate (Lopressor) 100 mg BID PO ; Start 06/28/16 at 09:00; Stop at 09:15; Status DC Mirtazapine (Remeron) 15 mg HS PO ; Start 06/28/16 at 21:00; Stop 06/28/16 at 21 :00; Status DC Pantoprazole Sodium (Protonix) 20 mg BID PO Last administered on 06/30/16 09: 33; Start 06/28/16 at 09:00 Tiotropium [place] (Spiriva Inh) 18 mcg DAILY INH ; Start 06/28/16 at 09:00; Stop 06/28/16 at 09:15; Status DC Lisinopril (Prinivil) 40 mg DAILY PO ; Start 06/28/16 at 09:00; Stop 06/28/16 at 09:15; Status DC Pravastatin Sodium (Pravachol) 40 mg DAILY PO ; Start 06/28/16 at 09:00; Stop at 09:15; Status DC Lorazepam (Ativan Inj) 1 mg Q3H PRN IV PUSH AGITATION; Start 06/28/16 at 07:00 ; Stop 06/28/16 at 09:15; Status DC Nystatin (Mycostatin Powder) 1 applic Q12HR TOPICAL Last administered on 09:35; Start 06/28/16 at 21:00 Amlodipine Besylate (Norvasc) 10 mg DAILY PO Last administered on 06/30/16 09: 33; Start 06/28/16 at 09:15 Famotidine (Pepcid) 20 mg BID PO Last administered on 06/30/16 09:34; Start at 09:15 Insulin Detemir (Levemir Inj) 20 units Q12HR SQ Last administered on 06/30/16 09:33; Start 06/28/16 at 21:15 Labetalol HCl (Trandate) 200 mg TID PO Last administered on 06/30/16 12:33; Start 06/28/16 at 13:00 Levetriacetam (Keppra Liq) 100 mg BID PO Last administered on 06/28/16 11:01 ; Start 06/28/16 at 09:15; Stop 06/28/16 at 20:24; Status DC Albuterol/ Ipratropium (Duoneb Neb) 1 ampule QID NEB NEB Last administered on 06/30/16 11:33; Start 06/28/16 at 20:00 Levetriacetam (Keppra Liq) 500 mg BID PO Last administered on 06/30/16 09:33 ; Start 06/28/16 at 21:00 Pneumococcal Polyvalent Vaccine (Pneumovax-23 Inj) 25 mcg ONCE ONCE IM ; Start 06/30/16 at 10:00; Stop 06/30/16 at 10:01; Status Cancel A/P Assessment and Plan History of respiratory failure with hypoxia recent admission with tracheostomy removal by patient -Tracheostomy replace in the ED. -Per home continue with current settings and if patient stable for 24 hours patient's clear from a pulmonary perspective. -X-ray reviewed and no comp occasions. -Continue to monitor. UTI -Patient allergic to Rocephin so will give Levaquin to cover for Pseudomonas. -We will continue to monitor pending urine culture. Currently cultures are growing gram-negative rods. Tinea -on nystatin powder to skin lesion. -Patient was given a dose of Diflucan. History of recent intracranial hemorrhagic stroke/large acute posterior fossa hemorrhage with intraventricular extension -s/p posterior decompression on 05/[address] Chavez. -Patient on Keppra for prophylaxis. -Neurologist stated that patient is stable continue her current shunt settings. Hypertension -Home medication resumed. Antiphospholipid syndrome -Previously on Coumadin but had a large intracranial hemorrhagic stroke. -Coumadin is being held due to the above. Type 2 diabetes insulin-dependent -Resume Lantus 20 units twice a day. -continue SSI DVT prophylaxis -SCDs. Discharge Planning Due to patient being high risk for having multidrug resistant organism will continue with IV antibiotics pending urine cultures. Mental status hodges she is doing better. Karen Browne MD Jun 30, 2016 12:43
--- NOTE | 2016-06-30 19:18 | HHI.PR ---
Subjective Remarks Seems more alert and stable, on T Collar, 28 %. No fever. Has UTI , On Antibiotics. Trach secretions are clear Objective Vital Signs Date Time Temp Pulse Resp B/P Pulse Ox O2 Delivery O2 Flow Rate FiO2 06/30/16 18:08 98 T-piece 28 06/30/16 16:51 97.7 76 18 124/60 92 06/30/16 12:00 98.2 68 18 126/67 96 06/30/16 08:11 97 T-piece 28 06/30/16 08:00 98.1 97 20 149/73 95 06/30/16 04:00 98.0 95 22 148/74 93 06/29/16 23:10 97.5 82 18 125/67 94 06/29/16 20:55 97.5 80 18 146/81 91 06/29/16 20:38 93 T-piece 28 I/O 06/29/16 06/29/16 06/29/16 06/30/16 06/30/16 06/30/16 07:00 15:00 23:00 07:00 15:00 23:00 Intake Total 0 ml 0 ml Balance 0 ml 0 ml Intake Oral 0 ml 0 ml # Voids 2 1 3 1 # Bowel Movements 2 2 1 2 Result Diagram: 06/30/16 0545 06/30/16 0545 Objective Remarks This is a moderately obese elderly lady in bed, pale and in no distress. HEENT: Head normocephalic. Pupils reactive. Tongue is moist. Throat is clear. Nasal mucosa dry NECK: Supple. No bruits or thyroid enlargement. CHEST: Distant breath sounds with expiratory wheezes over both lung duran. No crackles on either side. HEART: The heart sounds regular S1-S2. No murmur. ABDOMEN: Soft, benign. No masses or organomegaly. EXTREMITIES: Weakness of the right extremities . Reflexes are 1+. SKIN: No lesions observed. Assessment and Plan Assessment and Plan IMPRESSION 1. Status post tracheostomy tube removal and respiratory insufficiency 2. History of intracerebral hemorrhage. 3. Status post permanent tracheostomy tube placement and PEG tube. 4. Hypertension 5. Antiphospholipid syndrome Plan ; 1. Cont on T bar 28 %. 2. Continue nebs qid , duoneb. 3. Antibiotics as ordered. 4. Trach suction and lavage prn 5. To SNF anytime Jeanette Ireland MD Jun 30, 2016 19:18
[2016-07-01] VITALS: BP 174/77; PULSE 89; RESP 20; TEMP 97.5; O2SAT 92
[2016-07-01 04:00] VITALS: BP 150/56; PULSE 89; RESP 20; TEMP 97.3; O2SAT 92
[2016-07-01] MEDS: INSULIN ASPART SUPPLEMENTAL SCALE SQ SCH ×2 (05:13→11:00)
[2016-07-01] MEDS: LEVOFLOXACIN 750 MG PREMIX INJ 150 ML IV SCH (05:26)
[2016-07-01 08:00] VITALS: BP 158/70; PULSE 94; PULSE 95; RESP 18; TEMP 97.7; O2SAT 92
[2016-07-01 08:18] LABS: HEMATOCRIT 31.9 % (35.0-46.0); MEAN CORPUSCULAR HEMOGLOBIN 27.2 PG (27.0-34.0); MEAN CORPUSCULAR HGB CONC 33.6 % (32.0-36.0); PLATELET COUNT 196 TH/MM3 (150-450); RED BLOOD COUNT 3.94 MIL/MM3 (4.00-5.30); RED CELL DISTRIBUTION WIDTH 15.3 % (11.6-17.2); REVIEW FLAG FINAL
[2016-07-01 08:45] LABS: BICARBONATE 27.8 MEQ/L (21.0-32.0); POTASSIUM 3.9 MEQ/L (3.5-5.1)
[2016-07-01] MEDS: RESP: ALBUTEROL 2.5 MG/IPRATROPIUM 0.5 MG NEB (SCH) NEB ×2 (08:46→12:00)
[2016-07-01 08:48] VITALS: O2SAT 100
[2016-07-01] MEDS: SODIUM CHLORIDE 0.9% FLUSH 10 ML FLUSH IV FLUSH SCH (09:00)
[2016-07-01] MEDS: levETIRAcetam 500 MG/5 ML UDC PO SCH (09:04)
[2016-07-01] MEDS: SODIUM CHLOR 0.9% 1000 ML INJ 1,000 ML IV SCH (09:04)
[2016-07-01] MEDS: INSULIN DETEMIR 100 UNITS/ML VIAL SQ SCH (09:05)
[2016-07-01] MEDS: PANTOPRAZOLE SOD 20 MG DELAYED RELEASE TAB PO SCH (09:05)
[2016-07-01] MEDS: FUROSEMIDE 40 MG TAB PO SCH (09:05)
[2016-07-01] MEDS: FAMOTIDINE 20 MG TAB PO SCH (09:05)
[2016-07-01] MEDS: LABETALOL HCL 200 MG TAB PO SCH ×2 (09:05→12:48)
[2016-07-01] MEDS: NYSTATIN 100,000 U/GM PWD 15 GM BTL TOPICAL SCH (09:08)
[2016-07-01] MEDS ORDERED: CIPR250T52 PO (10:13)
--- NOTE | 2016-07-01 10:14 | HHI.DS ---
Discharge Summary Admission Date Jun 28, 2016 at 16:12 Discharge Date: Jul 01, 2016 Admitting Diagnosis Replaced Tracheostomy, UTI (1) Encounter for tracheostomy tube change ICD Code: Z43.0 Diagnosis: Principal (2) UTI (urinary tract infection) ICD Code: N39.0 Diagnosis: Principal (3) Impaired nasogastric feeding tube ICD Code: T85.598A Diagnosis: Secondary (4) Intracranial hemorrhage ICD Code: I62.9 Diagnosis: Secondary (5) Hypertension ICD Code: I10 Diagnosis: Secondary (6) Diabetes ICD Code: E11.9 Diagnosis: Secondary (7) History of CVA (cerebrovascular accident) ICD Code: Z86.73 Diagnosis: Secondary (8) Respiratory failure with hypoxia ICD Code: J96.91 Diagnosis: Secondary Procedures Trach replacement. Brief History - From Admission This is a 65-year-old female with a recent admission due to intracranial hemorrhage complicated by respiratory failure with tracheostomy placed, history of atrial fibrillation, type 2 diabetes insulin-dependent, antiphospholipid syndrome who presented with removal of her tracheostomy. Patient follows commands but is nonverbal and is at the bedside. Per patient baseline she is not able to move her left side of her upper extremity. But she is able to move her right side and lower extremity. Interview taken from the . Per patient has been stable he felt like there has been no issue. Patient pulled out her trach tube yesterday so presented to the ED. Patient was found to have a UTI in emergency department. Her did not notice any change her behaviors. is requesting Dr. Chavez to see patient in regards to her shot. Patient nurses at the bedside. Per nurse patient med reconciliation was not updated and she asked me to review her med reconciliation again. CBC/BMP: 07/01/16 0745 07/01/16 0745 Significant Findings Laboratory Tests Test 06/29/16 06/30/16 07/01/16 03:45 05:45 07:45 Red Blood Count 3.80 MIL/MM3 3.93 MIL/MM3 3.94 MIL/MM3 (4.00-5.30) (4.00-5.30) (4.00-5.30) Hemoglobin 10.3 GM/DL 10.7 GM/DL 10.7 GM/DL (11.6-15.3) (11.6-15.3) (11.6-15.3) Hematocrit 30.5 % 31.9 % 31.9 % (35.0-46.0) (35.0-46.0) (35.0-46.0) Monocytes (%) (Auto) 10.1 % (0.0-8.0) Eosinophils (%) (Auto) 4.1 % (0.0-4.0) Potassium Level 3.4 MEQ/L (3.5-5.1) Blood Urea Nitrogen 20 MG/DL (7-18) 19 MG/DL (7-18) Alkaline Phosphatase 132 U/L (45-117) Total Protein 6.3 GM/DL (6.4-8.2) Albumin 2.8 GM/DL (3.4-5.0) Random Glucose 141 MG/DL 152 MG/DL (74-106) (74-106) Imaging Last Impressions Chest X-Ray 06/28/16 0149 Signed Impressions: Service Date/Time: Tuesday, June 28, 2016 02:15 - CONCLUSION: Tracheostomy tube. Lungs are clear. Santana Mena MD Soft Tissue Neck X-Ray 06/28/16 0000 Signed Impressions: Service Date/Time: Tuesday, June 28, 2016 02:27 - CONCLUSION: Unremarkable soft tissue neck. Tracheostomy tube is seen at about T1-2 level. Santana Mena MD Head CT 06/28/16 0000 Signed Impressions: Service Date/Time: Tuesday, June 28, 2016 15:00 - CONCLUSION: 1. Evidence for previous infarct and left occipital craniotomy all stable in the interval. 2. Disease as described previously has cleared. Pio Pickett MD FACR PE at Discharge GENERAL: In no acute distress NECK: Trach place. CARDIOVASCULAR: Regular rate and rhythm without murmurs, gallops, or rubs. RESPIRATORY: Breath sounds equal bilaterally. No accessory muscle use. GASTROINTESTINAL: Abdomen soft, non-tender, nondistended. NEURO: Patient follow command. Pt update on day of discharge Follow-up for trach replacement and UTI. Patient continues to be much more alert today. She follow commands. she is able to nod yes or no. She denies any pain or shortness of breathing. Hospital Course History of respiratory failure with hypoxia recent admission with tracheostomy removal by patient -Tracheostomy replace in the ED. -Van Driver consulted. -Per Pulm home continue with current settings and continue to rehab. -X-ray reviewed and no comp occasions. -Continue to monitor. UTI -Patient allergic to Rocephin so will give Levaquin to cover for Pseudomonas. -cultures grew Klebsiella sensitive to cipro. -patient d/c con cipro. Tinea -on nystatin powder to skin lesion. -Patient was given a dose of Diflucan. History of recent intracranial hemorrhagic stroke/large acute posterior fossa hemorrhage with intraventricular extension -s/p posterior decompression on 05/[address] Chavez. -Patient on Keppra for prophylaxis. -NSG consulted. -NSG stated that patient is stable continue her current shunt settings. Hypertension -Home medication resumed. Antiphospholipid syndrome -Previously on Coumadin but had a large intracranial hemorrhagic stroke. -Coumadin is being held due to the above. Type 2 diabetes insulin-dependent -continue Lantus 20 units twice a day. -continue SSI Pt Condition on Discharge: Stable Discharge Disposition: Discharge to SNF Discharge Time: > 30 minutes Discharge Instructions DIET: Follow Instructions for: Heart Healthy Diet, Diabetic Diet Activities you can perform: Regular-No Restrictions Follow up Referrals: SNF/PREETI/HH - 2 Days SNF/LONG TERM/HH with [facility] New Medications: Ciprofloxacin (Cipro) 250 Mg Tab 750 MG PO BID Infection #8 Ref 0 TAB Continued Medications: Acetaminophen (Acetaminophen) 325 Mg Tab 650 MG PO Q4H PRN PAIN SCALE 4 TO 10 TAB Albuterol Neb (Albuterol Neb) 2.5 Mg/3 Ml Neb 2.5 MG NEB Q4HR NEB PRN SHORTNESS OF BREATH #60 Ref 0 NEBULE Amlodipine (Norvasc) 10 Mg Tab 10 MG PO DAILY Blood Pressure Management #30 Ref 0 TAB Famotidine (Famotidine) 20 Mg Tab 20 MG PO BID #60 Ref 0 TAB Furosemide (Furosemide) 40 Mg Tab 40 MG PO DAILY Give 1 tablet via G-Tube one time a day for Edema #30 Ref 0 TAB Insulin Glargine Inj (Lantus Inj) 100 Unit/Ml Inj 20 UNITS SQ Q12HR Insulin Lispro (Human) Inj (Humalog Inj) 1,000 Unit/10 Ml Vial 2-12 UNITS SQ ACHS SLIDING SCALE Max dose at bedtime:( )units; sugars < 70,(0) units; sugars 150-199,(2)units; sugars 200-249,(4)units; sugars 250-299,(7)units ; sugars 300-349,(10)units; sugars more than 349,(12)units. Blood Sugar Management #1 Ref 0 VIAL Labetalol (Labetalol) 200 Mg Tab 200 MG PO TID Give 2 tablet by mouth every 8 hour for HTN Blood Pressure Management Ref 0 TAB Levetiracetam Liq (Keppra Liq) 500 Mg/5 Ml Soln 500 MG PO BID Control Seizures #300 Ref 0 ML Nutritional Supplements (Glucerna 1.[address] Lane) 1 Liq Liq 60 ML TUBE CONTINUOUS Pantoprazole (Pantoprazole) 20 Mg Tab 20 MG PO BID Reflux #30 Ref 0 TAB Polyvinyl Alcohol-Povidone Opth Drops (Refresh Opth Drops) 1.4-0.6% Drops 1-2 DROP EACH EYE DAILY DRY EYE #1 Ref 0 BOTTLE Potassium Chloride Liq (Potassium Chloride Liq) 20 Meq/15 Ml Soln 20 MEQ PO DAILY Give 15 ml via G-Tube one time a day for replacement therapy Electrolyte Replacement Ref 0 ML Karen Browne MD Jul 01, 2016 10:14
--- NOTE | 2016-07-01 10:14 | HHI.DCPOC ---
Discharge Care Plan Diagnosis: (1) UTI (urinary tract infection) (2) Encounter for tracheostomy tube change Goals to Promote Your Health * To prevent worsening of your condition and complications * To maintain your health at the optimal level Directions to Meet Your Goals Take your medications as prescribed Follow your dietary instruction Follow activity as directed Keep your appointments as scheduled Take your immunizations and boosters as scheduled If your symptoms worsen call your PCP, if no PCP go to Urgent Care Center or Emergency Room Smoking is Dangerous to Your Health. Avoid second hand smoke Call the 24-hour hour crisis hotline for domestic abuse at Karen Browne MD Jul 01, 2016 10:14
[2016-07-01 12:00] VITALS: BP 143/64; PULSE 82; RESP 20; TEMP 97.8; O2SAT 96
== END 2016-07-01 14:03 | DRG 689 ==
LOC: NEPC 01:33 → INTOOBSV 06:32 → NEDA 06:32 → NEDH 10:52 → OBSVTOIN 16:12 → N04B 06-29 14:44 → N04A 06-29 23:35
PROVIDERS: ADMIT Family Medicine; ATTEND Family Medicine
PROC: 0B21XFZ Change Tracheostomy Device in Trachea, External Approach (ICD-10-PCS; principal; 2016-06-28)
DX: N39.0 Urinary tract infection, site not specified (principal); J96.91 Respiratory failure, unspecified with hypoxia; G91.9 Hydrocephalus, unspecified; D68.61 Antiphospholipid syndrome; I48.91 Unspecified atrial fibrillation; Z43.0 Encounter for attention to tracheostomy; B35.8 Other dermatophytoses; I69.154 Hemiplegia and hemiparesis following nontraumatic intracerebral hemorrhage affecting left non-dominant side; I10 Essential (primary) hypertension; I69.120 Aphasia following nontraumatic intracerebral hemorrhage; B96.1 Klebsiella pneumoniae [K. pneumoniae] as the cause of diseases classified elsewhere; E11.9 Type 2 diabetes mellitus without complications; Z79.4 Long term (current) use of insulin; Z98.2 Presence of cerebrospinal fluid drainage device; Z79.01 Long term (current) use of anticoagulants; Z93.1 Gastrostomy status
CPT/HCPCS: 70360; 70450; 71010; 80048; 80053; 81001; 82948; 85025; 85027; 85610; 85730; 87077; 87086; 87186; 87493; 93005; 94640; 94664; 96365; A7521; J1956; J7030

== ENCOUNTER 2016-07-04 14:29 | Emergency (ER) | payer MEDICARE, OTHER ==
[~2016-07-04] VITALS: Ht 167.6 cm; Wt 91.0 kg
[~2016-07-04 14:29] MED LIST changes: -ACET-703 PO; +ACET325T PO; -ALBI1INJ2 SQ; +AMLO10 PO; +CIPR250T52 PO; -CITA20TA4 PO; -CLON0.1T PO; -DIGO0.25 PO; +FAMO20TA2 PO; -FENO145T2 PO; -GABA400C5 PO; +HUMALOG SQ; -HYDR-3516 PO; +LABE200T2 PO; +LANTUS2P SQ; +LEVE500S PO; -LISI40TA PO; -MAGN400C2 PO; -METO100T PO; -MIRTA15 PO; -NOVOINJ6 SQ; +NUTR-215 TUBE; +POTA10SO12 PO; -POTA595T PO; +REFRDRO EACH EYE; -SIMV20TA PO; -SPIRCAP INH; -SYMB160A INH; -VITA10002 PO; -VITA10007 PO; -WARF-23 PO; -[UNRECOGNIZED DRUG - CODE] PO
[2016-07-04] MEDS ORDERED: RESP: ALBUTEROL 2.5 MG/IPRATROPIUM 0.5 MG NEB (SCH) NEB ONE (14:45)
[2016-07-04 14:47] VITALS: BP 153/71; PULSE 92; RESP 22; TEMP 97.9; O2SAT 98
[2016-07-04 15:00] VITALS: O2SAT 96
--- NOTE | 2016-07-04 16:17 | PD ---
HPI Chief Complaint: Respiratory Symptoms Time Seen by Provider: 14:43 Travel History International Travel<30 days: No Contact w/Intl Traveler<30days: No Traveled to known affect area: No History of Present Illness HPI This 65-year-old woman who presents to the emergency department after her trach dislodged at her shelter. This apparently has happened a couple times over the past several weeks. She was here several days ago after trach became dislodged. She has a 4.[address]. She apparently is nonverbal at baseline. She can communicate some. correction staff apparently was unable to replace the trach, EMS placed a 6.0 ET tube through the stoma and round. EMS reports her suctioning a fair amount of secretions out. History Past Medical History Narrative Medical A. fib Hypertension Antiphospholipid antibody syndrome Recent intracranial hemorrhage, respiratory fire with hypoxia, type 2 diabetes Social History Alcohol Use: No (PT INTUBATED UNABLE TO ASSESS) Tobacco Use: Yes (hx ppd) Allergies-Medications (Allergen,Severity, Reaction): Coded Allergies: Rocephin (Verified Allergy, Severe, HIVES, 06/28/16) Latex (Verified Allergy, Intermediate, Rash, 06/28/16) Reported Meds & Prescriptions Reported Meds & Active Scripts Active Cipro (Ciprofloxacin HCl) 250 Mg Tab 750 Mg PO BID Reported Keppra Liq (Levetiracetam) 500 Mg/5 Ml Soln 500 Mg PO BID Refresh Opth Drops (Polyvinyl Alcohol-Povidone Opth Drops) 1.4-0.6% Drops 1-2 Drop EACH EYE DAILY Glucerna 1.[address] (Nutritional Supplements) 1 Liq Liq 60 Ml TUBE CONTINUOUS Humalog Inj (Insulin Human Lispro) 1,000 Unit/10 Ml Vial 2-12 Units SQ ACHS SLIDING SCALE Max dose at bedtime:( )units; sugars < 70,(0)units; sugars 150-199,(2)units; sugars 200-249,(4)units; sugars 250-299,(7)units; sugars 300-349,(10)units; sugars more than 349,(12)units. Acetaminophen 325 Mg Tab 650 Mg PO Q4H PRN Lantus Inj (Insulin Glargine) 100 Unit/Ml Inj 20 Units SQ Q12HR Famotidine 20 Mg Tab 20 Mg PO BID Labetalol (Labetalol HCl) 200 Mg Tab 200 Mg PO TID Potassium Chloride Liq (Potassium Chloride) 20 Meq/15 Ml Soln 20 Meq PO DAILY Give 15 ml via G-Tube one time a day for replacement therapy Norvasc (Amlodipine Besylate) 10 Mg Tab 10 Mg PO DAILY Pantoprazole (Pantoprazole Sodium) 20 Mg Tab 20 Mg PO BID Albuterol Neb (Albuterol Sulfate) 2.5 Mg/3 Ml Neb 2.5 Mg NEB Q4HR NEB PRN Furosemide 40 Mg Tab 40 Mg PO DAILY Give 1 tablet via G-Tube one time a day for Edema Review of Systems ROS Limitations: Clinical Condition Physical Exam Narrative GENERAL: 65-year-old woman, occasional coughing SKIN: Focused skin assessment warm/dry. NECK: ET tube taped at the tracheostomy and the neck. CARDIOVASCULAR: Regular rate and rhythm. No murmur appreciated. RESPIRATORY: No accessory muscle use. Clear to auscultation. Breath sounds equal bilaterally. GASTROINTESTINAL: Abdomen soft, non-tender, nondistended. Hepatic and splenic margins not palpable. MUSCULOSKELETAL: No obvious deformities. No clubbing. No cyanosis. No edema. NEUROLOGICAL: Awake, will follow some commands at the right side, flaccid paralysis on the left. Data Data Last Documented VS Vital Signs Date Time Temp Pulse Resp B/P Pulse Ox O2 Delivery O2 Flow Rate FiO2 07/04/16 15:00 96 Trach Collar 5.00 40 07/04/16 14:54 92 22 07/04/16 14:47 97.9 153/71 Orders Chest, Single Ap (07/04/16 ) Albuterol-Ipratropium Neb (Duoneb Neb) (07/04/16 14:45) MDM Medical Decision Making Medical Screen Exam Complete: Yes Emergency Medical Condition: Yes Interpretation(s) My review of chest x-ray: No acute disease. Trach seen, HOME STAGING SPECIALIST shunt seen. Differential Diagnosis Trach dislodgment, aspiration, hemoptysis, other Narrative Course Medical decision making 65-year-old presents to the emergency department after trach became dislodged. This was replaced at the bedside. She was monitored in the emergency department for approximately 2 hours, and then discharge. Procedures Procedure Narrative Trach replacement: Trach exchange tubing was placed through the 6.0 ET tube. ET tube is in removed. 4.0 fenestrated Shiley was introduced over the tube exchanger and placed without difficulty. Patient tolerated well. Diagnosis Primary Impression: Encounter for tracheostomy tube change Additional Instructions: Continue routine trach care. Return to the emergency department for any new or worsening symptoms. Med/Other Pt SpecificInfo: No Change to Meds Disposition: 01 DISCHARGE HOME Condition: Stable Henri Villalba MD Jul 04, 2016 16:17
--- NOTE | 2016-07-04 16:25 | RADRPT ---
EXAM DATE/TIME: 07/04/2016 14:59 [facility] COMPARISON: CHEST SINGLE AP, June 28, 2016, 2:15. INDICATIONS : ET placement. MEDICAL HISTORY : Stroke. Lupus SURGICAL HISTORY : None. ENCOUNTER: Initial ACUITY: 1 day PAIN SCORE: Non-responsive. LOCATION: Bilateral chest FINDINGS: A single view of the chest demonstrates tracheostomy in satisfactory position. Shunt tubing on the le ft. Minimal basilar dependent atelectasis. Atherosclerotic and mildly tortuous aorta. CONCLUSION: 1. Minimal basilar and dependent atelectasis in the lungs. Tracheostomy in satisfactory position. No acute findings. Laureano Couch MD on July 04, 2016 at 16:22 Board Certified Radiologist. This report was verified electronically.
[2016-07-04 18:50] VITALS: BP 119/59; PULSE 79; RESP 20; O2SAT 96
== END 2016-07-04 20:55 | disposition home or self-care (01) ==
LOC: NEPC 14:29
DX: Z43.0 Encounter for attention to tracheostomy (principal); I48.91 Unspecified atrial fibrillation; I10 Essential (primary) hypertension; D68.61 Antiphospholipid syndrome
CPT/HCPCS: 31502; 71010; 94664; 99283; A7521

== ENCOUNTER 2016-07-07 20:12 | Emergency (ER) | payer MEDICARE, OTHER ==
[2016-07-07 20:41] VITALS: BP 128/72; PULSE 67; RESP 20; TEMP 97.5; O2SAT 95
[2016-07-07 20:47] VITALS: TEMP 97.5; O2SAT 98
[2016-07-07 21:00] VITALS: BP 128/59; PULSE 66; RESP 20; O2SAT 99
--- NOTE | 2016-07-07 21:16 | PD ---
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 Patient tube has apparently been dislodged multiple times recently. Per EMS, patient's daughter patient at baseline mental status (history of vascular dementia and nearly aphasic at baseline). Per EMS, facility physician wanted patient's tracheostomy to be immediately replaced and then immediately returned to the facility. Patient in NAD on arrival. History is otherwise limited 2/2 aphasia. PFSH Past Medical History Hx Anticoagulant Therapy: Yes Arthritis: Yes Asthma: No Blood Disorders: Yes (clotting disorder) Anxiety: No Depression: No Heart Rhythm Problems: No Cancer: Yes (SKIN CA) Cardiovascular Problems: Yes (HTN) High Cholesterol: Yes Chemotherapy: No Chest Pain: Yes (COPD) Congestive Heart Failure: No COPD: Yes Cerebrovascular Accident: Yes Diabetes: Yes Patient Takes Glucophage: No Diminished Hearing: No Endocrine: Yes Gastrointestinal Disorders: Yes GERD: Yes Genitourinary: Yes (renal stent) Hiatal Hernia: Yes Hypertension: Yes Immune Disorder: Yes (lupus) Kidney Stones: Yes Musculoskeletal: Yes Psychiatric: No Reproductive: No Respiratory: Yes Migraines: Yes (OCCASIONALLY) Radiation Therapy: No Renal Failure: No Seizures: No Sleep Apnea: No Thyroid Disease: No Ulcer: No ?: Not Past Surgical History Abdominal Surgery: Yes (CHOLECYSTECTOMY, APPENDECTOMY) Cardiac Surgery: No Cholecystectomy: Yes Ear Surgery: No Endocrine Surgery: No Eye Surgery: No Genitourinary Surgery: Yes (KIDNEY STONE SX) Gynecologic Surgery: Yes (HYSTERECTOMY) Hysterectomy: Yes (1996) Oral Surgery: Yes ( ) Thoracic Surgery: No Tonsillectomy: Yes Other Surgery: Yes (SKIN GRAFTS) Social History Alcohol Use: No (PT INTUBATED UNABLE TO ASSESS) Tobacco Use: Yes (hx ppd) Substance Use: No (FEI - PATIENT NONVERBAL) Allergies-Medications (Allergen,Severity, Reaction): Coded Allergies: Rocephin (Verified Allergy, Severe, HIVES, 07/07/16) Latex (Verified Allergy, Intermediate, Rash, 07/07/16) Reported Meds & Prescriptions Reported Meds & Active Scripts Active Cipro (Ciprofloxacin HCl) 250 Mg Tab 750 Mg PO BID Reported Keppra Liq (Levetiracetam) 500 Mg/5 Ml Soln 500 Mg PO BID Refresh Opth Drops (Polyvinyl Alcohol-Povidone Opth Drops) 1.4-0.6% Drops 1-2 Drop EACH EYE DAILY Glucerna 1.[address] (Nutritional Supplements) 1 Liq Liq 60 Ml TUBE CONTINUOUS Humalog Inj (Insulin Human Lispro) 1,000 Unit/10 Ml Vial 2-12 Units SQ ACHS SLIDING SCALE Max dose at bedtime:( )units; sugars < 70,(0)units; sugars 150-199,(2)units; sugars 200-249,(4)units; sugars 250-299,(7)units; sugars 300-349,(10)units; sugars more than 349,(12)units. Acetaminophen 325 Mg Tab 650 Mg PO Q4H PRN Lantus Inj (Insulin Glargine) 100 Unit/Ml Inj 20 Units SQ Q12HR Famotidine 20 Mg Tab 20 Mg PO BID Labetalol (Labetalol HCl) 200 Mg Tab 200 Mg PO TID Potassium Chloride Liq (Potassium Chloride) 20 Meq/15 Ml Soln 20 Meq PO DAILY Give 15 ml via G-Tube one time a day for replacement therapy Norvasc (Amlodipine Besylate) 10 Mg Tab 10 Mg PO DAILY Pantoprazole (Pantoprazole Sodium) 20 Mg Tab 20 Mg PO BID Albuterol Neb (Albuterol Sulfate) 2.5 Mg/3 Ml Neb 2.5 Mg NEB Q4HR NEB PRN Furosemide 40 Mg Tab 40 Mg PO DAILY Give 1 tablet via G-Tube one time a day for Edema Review of Systems ROS Limitations: Other: (Dementia) Physical Exam Exam Limitations: Other: (Dementia) Narrative GENERAL: WD/WN obese. SKIN: Warm and dry. HEAD: Normocephalic. EYES: No scleral icterus. No injection or drainage. ENT: Tracheostomy site open. Patient has positive cough. Minimal dried blood around site. NECK: Supple, trachea midline. No JVD or lymphadenopathy. CARDIOVASCULAR: Regular rate and rhythm without murmurs, gallops, or rubs. RESPIRATORY: Breath sounds equal bilaterally. No accessory muscle use. GASTROINTESTINAL: Abdomen soft, non-tender, nondistended. MUSCULOSKELETAL: No cyanosis, or edema. BACK: Nontender without obvious deformity. No CVA tenderness. Data Data Last Documented VS Orders Chest, Single Ap (07/07/16 ) MDM Medical Decision Making Medical Screen Exam Complete: Yes Emergency Medical Condition: Yes Differential Diagnosis Tracheostomy dislodgement, vascular dementia, respiratory compromise excluded clinically. Narrative Course Patient roomed in ER, a new 4fen tracheostomy was placed. Considered stitching in place but with frequent self removals, my concern is she will pull stitches out too complicating her trach. Daughter is arrived and is wondering if patient still needs trach. i have recommended that she have this discussion with her PCP or the facility physician. She may be appropriate for a cap trial. At this time she is stable for discharge. Procedures Procedure Narrative Tracheostomy tube replacement: The dried blood was cleaned from around the site. A bougie was placed into the trach site and upon confirming tactile trach rings, a new 4 fen trachostomy tube was passed over bougie into the trachea. The inner liner was replaced and secured with the soft velcro strap. CXR confirmed good trach. Diagnosis Primary Impression: Encounter for tracheostomy tube change Disposition: 03 DISCHARGE TO SNF Condition: Stable Enzo Arnold MD Jul 07, 2016 21:16
--- NOTE | 2016-07-07 21:56 | RADRPT ---
EXAM DATE/TIME: 07/07/2016 20:56 [facility] COMPARISON: CHEST SINGLE AP, July 04, 2016, 14:59. INDICATIONS : Replacement of trach tube MEDICAL HISTORY : None. SURGICAL HISTORY : None. ENCOUNTER: Initial ACUITY: 1 day PAIN SCORE: Non-responsive. LOCATION: Bilateral chest FINDINGS: A single view of the chest demonstrates tracheostomy in satisfactory position. Shunt tubing overlies left hemithorax. Minimal basilar atelectasis or scarring. CONCLUSION: 1. Minimal basilar atelectasis or scarring. Tracheostomy in satisfactory position. Laureano Couch MD on July 07, 2016 at 21:53 Board Certified Radiologist. This report was verified electronically.
== END 2016-07-07 23:04 ==
LOC: NEPC 20:12
DX: Z43.0 Encounter for attention to tracheostomy (principal); R47.01 Aphasia; E11.9 Type 2 diabetes mellitus without complications; I10 Essential (primary) hypertension; Z79.4 Long term (current) use of insulin; Z79.01 Long term (current) use of anticoagulants; Z87.39 Personal history of other diseases of the musculoskeletal system and connective tissue; Z86.2 Personal history of diseases of the blood and blood-forming organs and certain disorders involving the immune mechanism; Z86.79 Personal history of other diseases of the circulatory system; E78.00 Pure hypercholesterolemia, unspecified; Z87.09 Personal history of other diseases of the respiratory system; Z87.19 Personal history of other diseases of the digestive system; Z87.448 Personal history of other diseases of urinary system; Z86.69 Personal history of other diseases of the nervous system and sense organs; Z72.0 Tobacco use
CPT/HCPCS: 31502; 71010; 99283; A7521

== ENCOUNTER 2016-07-31 03:07 | Inpatient (IN) | payer MEDICARE, OTHER ==
[2016-07-31] VITALS (11 sets, daily range): BP systolic 114–144; BP diastolic 58–73; PULSE 61–83; RESP 14–18; TEMP 97.8–98.3; O2SAT 91–100
[~2016-07-31] VITALS: Ht 167.6 cm; Wt 76.7 kg
[2016-07-31] MEDS ORDERED: RESP: ALBUTEROL 2.5 MG/3 ML NEB (SCH) NEB ONE (04:00)
--- NOTE | 2016-07-31 04:04 | RADRPT ---
EXAM DATE/TIME: 07/31/2016 03:43 [facility] COMPARISON: CHEST SINGLE AP, July 07, 2016, 20:56. INDICATIONS : Palpatations. Chest discomfort. MEDICAL HISTORY : None. SURGICAL HISTORY : None. ENCOUNTER: Initial ACUITY: 1 day PAIN SCORE: 6/10 LOCATION: Bilateral chest FINDINGS: A single view of the chest demonstrates the lungs to be symmetrically aerated without evidence of mas s, infiltrate or effusion. The cardiomediastinal contours are unremarkable. Osseous structures are intact. Thoracic portion of a ventriculoperitoneal shunt catheter are noted, visualized portion intact. Tracheostomy tube has been removed in the interim. CONCLUSION: No evidence of acute cardiopulmonary disease. Haim Anaya MD on July 31, 2016 at 4:01 Board Certified Radiologist. This report was verified electronically.
--- NOTE | 2016-07-31 04:12 | PD ---
HPI Chief Complaint: Respiratory Symptoms Time Seen by Provider: 03:40 Travel History International Travel<30 days: No Contact w/Intl Traveler<30days: No Traveled to known affect area: No History of Present Illness HPI 65-year-old female presents with increased work of breathing per custodial staff. Patient is aphasic with left-sided weakness from a recent stroke. She is been here multiple times before after pulling out her tracheostomy tube. Family has decided that they do not want it placed back in on prior visits. PFSH Past Medical History Hx Anticoagulant Therapy: Yes Arthritis: Yes Asthma: No Blood Disorders: Yes (clotting disorder) Anxiety: No Depression: No Heart Rhythm Problems: No Cancer: Yes (SKIN CA) Cardiovascular Problems: Yes (HTN) High Cholesterol: Yes Chemotherapy: No Chest Pain: Yes (COPD) Congestive Heart Failure: No COPD: Yes Cerebrovascular Accident: Yes Diabetes: Yes Patient Takes Glucophage: No Diminished Hearing: No Endocrine: Yes Gastrointestinal Disorders: Yes GERD: Yes Genitourinary: Yes (renal stent,KENNY) Hiatal Hernia: Yes Hypertension: Yes Immune Disorder: Yes (lupus) Kidney Stones: Yes Musculoskeletal: Yes Neurologic: Yes (2002) Psychiatric: No Reproductive: No Respiratory: Yes Migraines: Yes (OCCASIONALLY) Radiation Therapy: No Renal Failure: No Seizures: No Sleep Apnea: No Thyroid Disease: No Ulcer: No Past Surgical History Abdominal Surgery: Yes (CHOLECYSTECTOMY, APPENDECTOMY,PEG) Cardiac Surgery: No Cholecystectomy: Yes Ear Surgery: No Endocrine Surgery: No Eye Surgery: No Genitourinary Surgery: Yes (KIDNEY STONE SX) Gynecologic Surgery: Yes (HYSTERECTOMY) Hysterectomy: Yes (1996) Oral Surgery: Yes ( ) Thoracic Surgery: No Tonsillectomy: Yes Other Surgery: Yes (SKIN GRAFTS) Social History Alcohol Use: No Tobacco Use: Yes (hx ppd) Substance Use: No Allergies-Medications (Allergen,Severity, Reaction): Coded Allergies: Rocephin (Verified Allergy, Severe, HIVES, 07/31/16) Latex (Verified Allergy, Intermediate, Rash, 07/31/16) Reported Meds & Prescriptions Reported Meds & Active Scripts Active Cipro (Ciprofloxacin HCl) 250 Mg Tab 750 Mg PO BID Reported Keppra Liq (Levetiracetam) 500 Mg/5 Ml Soln 500 Mg PO BID Refresh Opth Drops (Polyvinyl Alcohol-Povidone Opth Drops) 1.4-0.6% Drops 1-2 Drop EACH EYE DAILY Glucerna 1.5 Lane (Nutritional Supplements) 1 Liq Liq 60 Ml TUBE CONTINUOUS Humalog Inj (Insulin Human Lispro) 1,000 Unit/10 Ml Vial 2-12 Units SQ ACHS SLIDING SCALE Max dose at bedtime:( )units; sugars < 70,(0)units; sugars 150-199,(2)units; sugars 200-249,(4)units; sugars 250-299,(7)units; sugars 300-349,(10)units; sugars more than 349,(12)units. Acetaminophen 325 Mg Tab 650 Mg PO Q4H PRN Lantus Inj (Insulin Glargine) 100 Unit/Ml Inj 20 Units SQ Q12HR Famotidine 20 Mg Tab 20 Mg PO BID Labetalol (Labetalol HCl) 200 Mg Tab 200 Mg PO TID Potassium Chloride Liq (Potassium Chloride) 20 Meq/15 Ml Soln 20 Meq PO DAILY Give 15 ml via G-Tube one time a day for replacement therapy Norvasc (Amlodipine Besylate) 10 Mg Tab 10 Mg PO DAILY Pantoprazole (Pantoprazole Sodium) 20 Mg Tab 20 Mg PO BID Albuterol Neb (Albuterol Sulfate) 2.5 Mg/3 Ml Neb 2.5 Mg NEB Q4HR NEB PRN Furosemide 40 Mg Tab 40 Mg PO DAILY Give 1 tablet via G-Tube one time a day for Edema Review of Systems Except as stated in HPI: all other systems reviewed are Neg Physical Exam Narrative GENERAL: female patient SKIN: Warm and dry. HEAD: Normocephalic EYES: No injection or drainage. ENT: No nasal drainage noted. NECK: Supple, trachea midline. CARDIOVASCULAR: Regular rate and rhythm RESPIRATORY: Breath sounds equal bilaterally at apices. No accessory muscle use. GASTROINTESTINAL: Abdomen soft, non-tender, nondistended. NEUROLOGICAL: aphasic, left sided weakness, eyes open, at baseline per family Data Data Last Documented VS Vital Signs Date Time Temp Pulse Resp B/P Pulse Ox O2 Delivery O2 Flow Rate FiO2 07/31/16 04:22 98 4.00 07/31/16 03:49 63 16 Nasal Cannula 07/31/16 03:36 98.2 142/73 Orders Complete Blood Count With Diff (07/31/16 03:41) Basic Metabolic Panel (Bmp) (07/31/16 03:41) Act Partial Throm Time (Ptt) (07/31/16 03:41) Prothrombin Time / Inr (Pt) (07/31/16 03:41) Chest, Single Ap (07/31/16 ) Iv Access Insert/Monitor (07/31/16 03:41) Ecg Monitoring (07/31/16 03:41) Oximetry (07/31/16 03:41) Albuterol Neb (Albuterol Neb) (07/31/16 04:00) Lipase (07/31/16 04:20) Hepatic Functional Panel (07/31/16 04:20) Ct Abd/Pel W/O Iv Contrast (07/31/16 ) Urinalysis - C+S If Indicated (07/31/16 04:22) Urine Culture (07/31/16 04:40) Aztreonam Inj (Azactam Inj) (07/31/16 05:40) Methylprednisolone So Succ Inj (Solumedr (07/31/16 06:00) Albuterol Neb (Albuterol Neb) (07/31/16 06:00) Admit Order (Ed Use Only) (07/31/16 06:03) Labs Laboratory Tests Test 07/31/16 07/31/16 07/31/16 04:08 04:18 04:40 White Blood Count 12.3 TH/MM3 Red Blood Count 4.29 MIL/MM3 Hemoglobin 11.2 GM/DL Hematocrit 34.4 % Mean Corpuscular Volume 80.1 FL Mean Corpuscular Hemoglobin 26.1 PG Mean Corpuscular Hemoglobin 32.6 % Concent Red Cell Distribution Width 16.8 % Platelet Count 158 TH/MM3 Mean Platelet Volume 11.5 FL Neutrophils (%) (Auto) 71.5 % Lymphocytes (%) (Auto) 16.3 % Monocytes (%) (Auto) 7.9 % Eosinophils (%) (Auto) 3.0 % Basophils (%) (Auto) 1.3 % Neutrophils # (Auto) 8.8 TH/MM3 Lymphocytes # (Auto) 2.0 TH/MM3 Monocytes # (Auto) 1.0 TH/MM3 Eosinophils # (Auto) 0.4 TH/MM3 Basophils # (Auto) 0.2 TH/MM3 CBC Comment AUTO DIFF Differential Total Cells 100 Counted Neutrophils % (Manual) 57 % Band Neutrophils % 2 % Lymphocytes % 25 % Monocytes % 10 % Eosinophils % 4 % Neutrophils # (Manual) 7.5 TH/MM3 Metamyelocytes 2 % Differential Comment FINAL DIFF MANUAL Platelet Estimate LOW Platelet Morphology Comment NORMAL Stomatocytes 1+ Prothrombin Time 10.4 SEC Prothromb Time International 0.9 RATIO Ratio Activated Partial 24.5 SEC Thromboplast Time Sodium Level 136 MEQ/L Potassium Level 3.9 MEQ/L Chloride Level 96 MEQ/L Carbon Dioxide Level 33.6 MEQ/L Anion Gap 6 MEQ/L Blood Urea Nitrogen 35 MG/DL Creatinine 0.69 MG/DL Estimat Glomerular Filtration 85 ML/MIN Rate Random Glucose 143 MG/DL Calcium Level 9.9 MG/DL Urine Color YELLOW Urine Turbidity HAZY Urine pH 5.5 Urine Specific [place] 1.021 Urine Protein 30 mg/dL Urine Glucose (UA) NEG mg/dL Urine Ketones NEG mg/dL Urine Occult Blood LARGE Urine Nitrite NEG Urine Bilirubin NEG Urine Urobilinogen LESS THAN 2.0 MG/DL Urine Leukocyte Esterase LARGE Urine RBC /hpf Urine WBC /hpf Urine WBC Clumps MANY Urine Bacteria MOD /hpf Urine Yeast (Budding) MOD Microscopic Urinalysis Comment CULTURE INDICATED MDM Medical Decision Making Medical Screen Exam Complete: Yes Emergency Medical Condition: Yes Medical Record Reviewed: Yes (pmh confirmed) Interpretation(s) CBC & BMP Diagram 07/31/16 04:08 07/31/16 04:18 Last 24 hours Impressions Chest X-Ray 07/31/16 0000 Signed Impressions: Service Date/Time: Sunday, July 31, 2016 03:43 - CONCLUSION: No evidence of acute cardiopulmonary disease. Haim Anaya MD Abdomen/Pelvis CT 07/31/16 0000 Signed Impressions: Service Date/Time: Sunday, July 31, 2016 05:21 - CONCLUSION: 1. No obstruction or acute inflammatory changes are demonstrated. 2. Gastrojejunostomy tube without evidence of an acute complication. 3. Aortoiliac atherosclerosis again noted. No aneurysm. 4. Nonobstructing stones in both kidneys again seen without change. 5. 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 6. Mild bibasilar atelectasis. 7. Chronic pancreatitis. No evidence of acute pancreatitis. Haim Anaya MD ua with uti Differential Diagnosis Pneumonia, effusion, pneumothorax, anemia, renal failure, reactive airway disease Narrative Course Will check blood work, chest x-ray and dose with albuterol and reevaluate patient pointing at abdomen in pain now per sister, will add on ua, ct abdomen, lipase and reeval Patient feeling better with albuterol Will repeat and dose with steroids. Patient will be given antibiotics for UTI. Will place in observation for further care given increased oxygen requirement and tachypnea with associated COPD exacerbation in setting of UTI Physician Communication Physician Communication dr garner agrees to admit Diagnosis Primary Impression: UTI (urinary tract infection) Qualified Code: T83.511A - Urinary tract infection associated with indwelling urethral catheter, initial encounter Additional Impression: Chronic obstructive pulmonary disease with acute exacerbation Juana Vila MD Jul 31, 2016 04:11
[2016-07-31 04:27] LABS: AUTOMATED NEUTROPHIL # 8.8 TH/MM3 (1.8-7.7); BASOPHIL # 0.2 TH/MM3 (0-0.2); BASOPHIL % 1.3 % (0.0-2.0); EOSINOPHIL # 0.4 TH/MM3 (0-0.4); HEMATOCRIT 34.4 % (35.0-46.0); LYMPH % 16.3 % (9.0-44.0); MEAN CELL VOLUME 80.1 FL (80.0-100.0); MEAN CORPUSCULAR HEMOGLOBIN 26.1 PG (27.0-34.0); MEAN CORPUSCULAR HGB CONC 32.6 % (32.0-36.0); MONO % 7.9 % (0.0-8.0); NEUT % 71.5 % (16.0-70.0); PLATELET COUNT 158 TH/MM3 (150-450); RED BLOOD COUNT 4.29 MIL/MM3 (4.00-5.30); RED CELL DISTRIBUTION WIDTH 16.8 % (11.6-17.2); WHITE BLOOD COUNT 12.3 TH/MM3 (4.0-11.0)
[2016-07-31 04:28] LABS: HEMO FLAGS AUTO DIFF
[2016-07-31 04:45] LABS: APTT (PATIENT) 24.5 SEC (24.3-30.1); INTERNATIONAL NORMALIZED RATIO 0.9 RATIO; PROTHROMBIN TIME - PATIENT 10.4 SEC (9.8-11.6)
[2016-07-31 05:00] LABS: BACTERIA, URINE MOD /hpf; BLOOD, URINE LARGE (NEG); GLUCOSE,URINE NEG (NEG); KETONE, URINE NEG (NEG); NITRITE,URINE NEG (NEG); PH, URINE 5.5 (5.0-8.5); URINE COLOR YELLOW (YELLW/STRAW)
[2016-07-31 05:01] LABS: COMMENT (UR) CULTURE INDICATED; CULTURE IF INDICATED CULTURE INDICATED
[2016-07-31 05:05] LABS: BICARBONATE 33.6 MEQ/L (21.0-32.0); POTASSIUM 3.9 MEQ/L (3.5-5.1)
[2016-07-31 05:19] LABS: BANDS 2 % (0-6); EOSINOPHILS 4 % (0-4); METAMYELOCYTES 2 % (0-1); NEUTROPHIL # MANUAL DIFF 7.5 TH/MM3 (1.8-7.7); POLYS (SEG NEUTROPHILS) 57 % (16-70); WBC DIFF SAMPLE 100
[2016-07-31 05:21] LABS: PLATELET ESTIMATE SMEAR LOW (NORMAL); PLATELET MORPHOLOGY NORMAL (NORMAL); SCAN/DIFF FINAL DIFF MANUAL; STOMATOCYTES 1+ (NORMAL)
[2016-07-31] MEDS ORDERED: AZTREONAM INJ 1,000 MG in SODIUM CHLORIDE 0.9% INJ 100 ML IV STA (05:40)
--- NOTE | 2016-07-31 05:44 | RADRPT ---
EXAM DATE/TIME: 07/31/2016 05:21 [facility] COMPARISON: CT ABDOMEN & PELVIS W CONTRAST, May 09, 2016, 23:37. INDICATIONS : Abdominal pain. ORAL CONTRAST: No oral contrast ingested. RADIATION DOSE: 9.96 CTDIvol (mGy) MEDICAL HISTORY : Renal calculi. Hypertension. Lupus SURGICAL HISTORY : Appendectomy. Cholecystectomy. ENCOUNTER: Initial ACUITY: 1 day PAIN SCALE: 6/10 LOCATION: abdomen TECHNIQUE: Volumetric scanning of the abdomen and pelvis was performed. Using automated exposure control and ad justment of the mA and/or kV according to patient size, radiation dose was kept as low as reasonably achievable to obtain optimal diagnostic quality images. FINDINGS: LOWER LUNGS: Mild atelectasis seen of the visualized lung bases. LIVER: Homogeneous density without lesion. There is no dilation of the biliary tree. No calcified gallston es. SPLEEN: Normal size without lesion. PANCREAS: A few scattered calcifications are again noted of the body and head. KIDNEYS: Nonobstructing lower pole stones are seen, 5 mm on the right and 3 mm on the left. ADRENAL GLANDS: Within normal limits. VASCULAR: Dense mural atherosclerosis of the abdominal aorta. No aneurysm. BOWEL/MESENTERY: Gastrojejunostomy tube noted appears appropriately positioned. No obstruction or inflammatory changes seen of the gastrointestinal tract. ABDOMINAL WALL: Within normal limits. RETROPERITONEUM: There is no lymphadenopathy. BLADDER: Decompressed with a Batista, grossly unremarkable. REPRODUCTIVE: Within normal limits. INGUINAL: There is no lymphadenopathy or hernia. MUSCULOSKELETAL: There new area of ossification in the region of right piriformis muscle, series 2 image 62. CONCLUSION: 1. No obstruction or acute inflammatory changes are demonstrated. 2. Gastrojejunostomy tube without evidence of an acute complication. 3. Aortoiliac atherosclerosis again noted. No aneurysm. 4. Nonobstructing stones in both kidneys again seen without change. 5. 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 6. Mild bibasilar atelectasis. 7. Chronic pancreatitis. No evidence of acute pancreatitis. Haim Anaya MD on July 31, 2016 at 5:36 Board Certified Radiologist. This report was verified electronically.
[2016-07-31] MEDS ORDERED: RESP: ALBUTEROL 2.5 MG/3 ML NEB (SCH) INH ONE (06:00)
[2016-07-31] MEDS ORDERED: methylPREDNISolone SOD SUCC 125 MG/2 ML VIAL IVP ONE (06:00)
[2016-07-31] MEDS ORDERED: DEXTROSE 50% IN WATER 50 ML VIAL(D50) IV PUSH PRN (06:00)
[2016-07-31] MEDS ORDERED: SODIUM CHLORIDE 0.9% FLUSH 10 ML FLUSH IV FLUSH PRN (06:00)
[2016-07-31] MEDS ORDERED: BISACODYL 10 MG SUPP RECTAL PRN (06:00)
[2016-07-31] MEDS ORDERED: GLUCAGON 1 MG/ML VIAL OTHER PRN (06:00)
[2016-07-31] MEDS: SODIUM CHLOR 0.9% 1000 ML INJ 1,000 ML IV SCH ×3 (06:39→21:24)
[2016-07-31] MEDS: INSULIN ASPART SUPPLEMENTAL SCALE SQ SCH ×4 (07:00→21:24)
[2016-07-31] MEDS: SODIUM CHLORIDE 0.9% FLUSH 10 ML FLUSH IV FLUSH SCH ×2 (09:00→21:00)
[2016-07-31] MEDS: FUROSEMIDE 40 MG TAB PO SCH (10:53)
[2016-07-31] MEDS: PANTOPRAZOLE SOD 20 MG DELAYED RELEASE TAB PO SCH ×2 (10:54→21:23)
[2016-07-31] MEDS: FAMOTIDINE 20 MG TAB PO SCH ×2 (10:54→21:23)
[2016-07-31] MEDS: LABETALOL HCL 200 MG TAB PO SCH ×3 (10:54→17:04)
[2016-07-31] MEDS: INSULIN DETEMIR 100 UNITS/ML VIAL SQ SCH ×2 (10:54→21:24)
[2016-07-31] MEDS: RESP: ALBUTEROL 2.5 MG/IPRATROPIUM 0.5 MG NEB (PRN) NEB (12:21)
--- NOTE | 2016-07-31 12:47 | HHI.HP ---
HPI Service [facility] Primary Care Physician Sudhakar King MD Admission Diagnosis uti, shortness of breath Diagnoses: Chief Complaint: Complaining of shortness of breathing and abdominal pain Travel History International Travel<30 Days: No Contact w/Intl Traveler <30 Da: No Traveled to Known Affected Are: No History of Present Illness This is a 65-year-old female with history of CVA with left-sided weakness secondary to intracranial bleed, history of multiple UTIs, has a chronic Batista in, chronic respiratory failure status post tracheostomy but was removed by patient and was not replaced who presented with shortness of breathing abdominal pain. Patient is nonverbal but understands. Spoke to patient's Mr. Spann over the phone who stated that patient was admitted due to shortness of breathing and abdominal pain. Otherwise he had no other information to add. Patient resided in the [facility]. When asked patient she abdominal pain she pointed to her abdomen mostly at the PEG site. Also when answer shortness of breathing she nodded her head yes. Per patient's she is able to speak if you encouraged her. I did a lot of encouragement patient continues to be nonverbal. Patient does follow commands. After nursing facility patient at baseline was on 5 L nasal cannula. She is currently on 4 L nasal cannula. Patient was given one dose of Solu-Medrol in the emergency department. Per patient's patient is a DO NOT RESUSCITATE. This was also confirmed by the assisted. Review of Systems Patient is nonverbal unable to obtain. She does point to her abdomen when I asked her if there is any pain. Patient also nauseous shortness of breathing. Past Family Social History Past Medical History Afib, HTN Antiphospholipid syndrome, recent abdomen due to intracranial hemorrhage, respiratory failure with hypoxia, type 2 diabetes insulin-dependent Past Surgical History Cholecystectomy, Total hysterectomy, Kidney stone removal, posterior decompression on 05/04 Multiple tracheostomy placement Reported Medications Keppra Liq (Levetiracetam) 500 Mg/5 Ml Soln 500 Mg PO BID Refresh Opth Drops (Polyvinyl Alcohol-Povidone Opth Drops) 1.4-0.6% Drops 1-2 Drop EACH EYE DAILY Glucerna 1.[address] (Nutritional Supplements) 1 Liq Liq 60 Ml TUBE CONTINUOUS Humalog Inj (Insulin Human Lispro) 1,000 Unit/10 Ml Vial 2-12 Units SQ ACHS SLIDING SCALE Max dose at bedtime:( )units; sugars < 70,(0)units; sugars 150-199,(2)units; sugars 200-249,(4)units; sugars 250-299,(7)units; sugars 300-349,(10)units; sugars more than 349,(12)units. Acetaminophen 325 Mg Tab 650 Mg PO Q4H PRN Lantus Inj (Insulin Glargine) 100 Unit/Ml Inj 20 Units SQ Q12HR Famotidine 20 Mg Tab 20 Mg PO BID Labetalol (Labetalol HCl) 200 Mg Tab 200 Mg PO TID Potassium Chloride Liq (Potassium Chloride) 20 Meq/15 Ml Soln 20 Meq PO DAILY Give 15 ml via G-Tube one time a day for replacement therapy Norvasc (Amlodipine Besylate) 10 Mg Tab 10 Mg PO DAILY Pantoprazole (Pantoprazole Sodium) 20 Mg Tab 20 Mg PO BID Albuterol Neb (Albuterol Sulfate) 2.5 Mg/3 Ml Neb 2.5 Mg NEB Q4HR NEB PRN Furosemide 40 Mg Tab 40 Mg PO DAILY Give 1 tablet via G-Tube one time a day for Edema Allergies: Coded Allergies: Rocephin (Verified Allergy, Severe, HIVES, 07/31/16) Latex (Verified Allergy, Intermediate, Rash, 07/31/16) Active Ordered Medications Current Medications Albuterol Sulfate 2.5 mg 2.5 mg ONCE ONCE NEB Last administered on 07/31/16 04:19; Start 07/31/16 at 04:00; Stop 07/31/16 at 04:01; Status DC Aztreonam/Sodium Chloride (Azactam Inj/NS Inj) 100 ml @ 200 mls/hr ONCE STAT IV Last administered on 07/31/16 06:40; Start 07/31/16 at 05:40; Stop at 06:09; Status DC Methylprednisolone Sodium Succinate (SoluMEDROL INJ) 125 mg ONCE ONCE IVP Last administered on 07/31/16 06:07; Start 07/31/16 at 06:00; Stop 07/31/16 at 06:01; Status DC Albuterol Sulfate (Albuterol Neb) 2.5 mg ONCE ONCE INH Last administered on 06:11; Start 07/31/16 at 06:00; Stop 07/31/16 at 06:01; Status DC Albuterol/ Ipratropium 1 ampule 1 ampule Q4HR NEB PRN NEB SOB/WHEEZING Last administered on 07/31/16 12:21; Start 07/31/16 at 06:00 Ciprofloxacin/ Dextrose (Cipro 400 Mg Premix) 200 ml @ 200 mls/hr Q12H IV ; Start 07/31/16 at 18:00 Dextrose (D50w (Vial) Inj) 25 ml UNSCH PRN IV PUSH HYPOGLYCEMIA-SEE COMMENTS; Start 07/31/16 at 06:00 Glucagon (Glucagon Inj) 1 mg UNSCH PRN OTHER HYPOGLYCEMIA-SEE COMMENTS; Start 07/31/16 at 06:00 Insulin Aspart 1 1 ACHS SLIDING SCALE SQ ; Start 07/31/16 at 07:00 Sodium Chloride (NS 1000 ml Inj) 1,000 ml @ 100 mls/hr Q10H IV Last administered on 07/31/16 06:39; Start 07/31/16 at 06:00 Sodium Chloride (NS Flush) 2 ml UNSCH PRN IV FLUSH FLUSH AFTER USING IV ACCESS ; Start 07/31/16 at 06:00 Sodium Chloride (NS Flush) 2 ml BID IV FLUSH ; Start 07/31/16 at 09:00 Ondansetron HCl (Zofran Inj) 4 mg Q6H PRN IVP NAUSEA OR VOMITING; Start at 06:00 Bisacodyl (Dulcolax Supp) 10 mg DAILY PRN RECTAL CONSTIPATION; Start 07/31/16 at 06:00 Morphine Sulfate (Morphine Inj) 2 mg Q3H PRN IV Pain 6-10; Start 07/31/16 at 06 :00 Amlodipine Besylate (Norvasc) 10 mg DAILY PO Last administered on 07/31/16 10: 53; Start 07/31/16 at 09:00 Famotidine (Pepcid) 20 mg BID PO Last administered on 07/31/16 10:54; Start at 09:00 Furosemide (Lasix) 40 mg DAILY PO Last administered on 07/31/16 10:53; Start 07/31/16 at 09:00 Insulin Detemir (Levemir Inj) 20 units Q12HR SQ Last administered on 07/31/16 10:54; Start 07/31/16 at 09:00 Labetalol HCl (Trandate) 200 mg TID PO Last administered on 07/31/16 10:54; Start 07/31/16 at 09:00 Levetriacetam (Keppra Liq) 500 mg BID PO ; Start 07/31/16 at 09:00 Pantoprazole Sodium (Protonix) 20 mg BID PO Last administered on 07/31/16 10: 54; Start 07/31/16 at 09:00 Polyvinyl Alcohol/ Povidone (Refresh Classic 1.4-0.6% Pf Opt Soln) 1 drop DAILY EACH EYE ; Start 07/31/16 at 09:00 Family History Noncontributory Social History Patient resides and the custodial facility. Physical Exam Vital Signs Vital Signs Date Time Temp Pulse Resp B/P Pulse Ox O2 Delivery O2 Flow Rate FiO2 07/31/16 12:15 96 Nasal Cannula 4.00 07/31/16 11:24 98.2 80 16 142/62 95 07/31/16 09:53 98.3 76 18 127/62 96 07/31/16 09:00 75 16 114/58 99 Nasal Cannula 4 07/31/16 06:55 61 16 144/67 100 Nasal Cannula 4 07/31/16 04:22 98 4.00 07/31/16 03:49 63 16 91 Nasal Cannula 4 07/31/16 03:40 16 91 Nasal Cannula 4 07/31/16 03:36 98.2 63 16 142/73 91 Physical Exam GENERAL: This is a well-nourished, well-developed patient, in no apparent distress. SKIN: No rashes, ecchymoses or lesions. Cool and dry. HEAD: Atraumatic. Normocephalic. No temporal or scalp tenderness. EYES: Pupils equal round and reactive. Extraocular motions intact. No scleral icterus. No injection or drainage. ENT: Nose without bleeding, purulent drainage or septal hematoma. Throat without erythema, tonsillar hypertrophy or exudate. Uvula midline. Airway patent. NECK: Trachea midline. No JVD or lymphadenopathy. Supple, nontender, no meningeal signs.+trach wound dry clean intact. CARDIOVASCULAR: Regular rate and rhythm without murmurs, gallops, or rubs. RESPIRATORY: Transmitted upper respiratory sounds. No wheezes, rales, or rhonchi. GASTROINTESTINAL: Abdomen soft, nondistended. No hepato-splenomegaly, or palpable masses. No guarding. PEG is in place. Tenderness to palpation more at the PEG site. Batista is in place. MUSCULOSKELETAL: Left-sided 2 out of 5 muscle strength. Right sided 5 out of 5 strength. No calf tenderness. Negative Homans sign bilaterally. NEUROLOGICAL: Awake and alert is nonverbal but follows commands. Per patient's she can speak simple words but she needs lots of encouragement. Cranial nerves II through XII intact. Laboratory Laboratory Tests Test 07/31/16 07/31/16 07/31/16 04:08 04:18 04:40 White Blood Count 12.3 Red Blood Count 4.29 Hemoglobin 11.2 Hematocrit 34.4 Mean Corpuscular Volume 80.1 Mean Corpuscular Hemoglobin 26.1 Mean Corpuscular Hemoglobin 32.6 Concent Red Cell Distribution Width 16.8 Platelet Count 158 Mean Platelet Volume 11.5 Neutrophils (%) (Auto) 71.5 Lymphocytes (%) (Auto) 16.3 Monocytes (%) (Auto) 7.9 Eosinophils (%) (Auto) 3.0 Basophils (%) (Auto) 1.3 Neutrophils # (Auto) 8.8 Lymphocytes # (Auto) 2.0 Monocytes # (Auto) 1.0 Eosinophils # (Auto) 0.4 Basophils # (Auto) 0.2 CBC Comment AUTO DIFF Differential Total Cells 100 Counted Neutrophils % (Manual) 57 Band Neutrophils % 2 Lymphocytes % 25 Monocytes % 10 Eosinophils % 4 Neutrophils # (Manual) 7.5 Metamyelocytes 2 Differential Comment FINAL DIFF MANUAL Platelet Estimate LOW Platelet Morphology Comment NORMAL Stomatocytes 1+ Prothrombin Time 10.4 Prothromb Time International 0.9 Ratio Activated Partial 24.5 Thromboplast Time Sodium Level 136 Potassium Level 3.9 Chloride Level 96 Carbon Dioxide Level 33.6 Anion Gap 6 Blood Urea Nitrogen 35 Creatinine 0.69 Estimat Glomerular Filtration 85 Rate Random Glucose 143 Calcium Level 9.9 Urine Color YELLOW Urine Turbidity HAZY Urine pH 5.5 Urine Specific [place] 1.021 Urine Protein 30 Urine Glucose (UA) NEG Urine Ketones NEG Urine Occult Blood LARGE Urine Nitrite NEG Urine Bilirubin NEG Urine Urobilinogen LESS THAN 2.0 Urine Leukocyte Esterase LARGE Urine RBC Urine WBC Urine WBC Clumps MANY Urine Bacteria MOD Urine Yeast (Budding) MOD Microscopic Urinalysis Comment CULTURE INDICATED Date/Time Procedure Status Source Growth 07/31/16 04:40 Urine Culture Received Urine Clean Catch Pending Result Diagram: 07/31/16 0408 07/31/16 0418 Imaging Last Impressions Chest X-Ray 07/31/16 0000 Signed Impressions: Service Date/Time: Sunday, July 31, 2016 03:43 - CONCLUSION: No evidence of acute cardiopulmonary disease. Haim Anaya MD Abdomen/Pelvis CT 07/31/16 0000 Signed Impressions: Service Date/Time: Sunday, July 31, 2016 05:21 - CONCLUSION: 1. No obstruction or acute inflammatory changes are demonstrated. 2. Gastrojejunostomy tube without evidence of an acute complication. 3. Aortoiliac atherosclerosis again noted. No aneurysm. 4. Nonobstructing stones in both kidneys again seen without change. 5. 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 6. Mild bibasilar atelectasis. 7. Chronic pancreatitis. No evidence of acute pancreatitis. Haim Anaya MD Assessment and Plan Assessment and Plan Chronic respiratory failure with hypoxia status post tracheostomy removed by patient multiple times. -Per assisted patient has increased work of breathing but her oxygen saturation has been stable. Patient has been on 5 L of nasal cannula. -Increased work of breathing seems more due to upper respiratory. Will consult kiss mixer in regards to further management. Patient may need trach replaced. I dealt with patient's who is the healthcare proxy and stated to asked patient if she wants to trach again. Patient not at her head yes. -Will consult kiss mixer. UTI -Patient has been treated multiple times in the past due to UTIs. Her last cultures grew Klebsiella in which she was discharged on Cipro. -Cipro was restarted so continue with Cipro. We will also consult infectious disease since patient is being treated multiple times due to UTI. -Most likely she will need her Batista replaced. Abdominal pain -Unsure etiology. May be secondary to PEG versus UTI. -CT scan the abdomen/pelvis shows no acute process. -Will treat UTI and continue to monitor clinically. History of recent intracranial hemorrhagic stroke/large acute posterior fossa hemorrhage with intraventricular extension -s/p posterior decompression on 05/[address] Chavez. -Patient on Keppra for prophylaxis. -Stable. Hypertension/GERD -Continue with home medication. Antiphospholipid syndrome -Previously on Coumadin but had a large intracranial hemorrhagic stroke. -Coumadin is being held due to the above. Type 2 diabetes insulin-dependent -continue Lantus 20 units twice a day. -continue SSI DVT prophylaxis -Contraindicated secondary to intracranial bleed. -SCDs. Code Status DNR Discussed Condition With patient's sister and . Karen Browne MD Jul 31, 2016 12:47
[2016-07-31 13:46] LABS: BLOOD GAS BASE EXCESS 7.7 mmol/L (-2-2); BLOOD GAS CARBOXYHEMOGLOBIN 1.6 % (0-4); BLOOD GAS HCO3 32 mmol/L (22-26); BLOOD GAS METHEMOGLOBIN 0.5 % (0-2); BLOOD GAS O2 HGB SATURATION 92 % (90-100); BLOOD GAS OXYGEN CONTENT 14.7 Vol % (12.0-20.0); BLOOD GAS PCO2 46 mmHg (38-42); BLOOD GAS PO2 66 mmHG (61-120); BLOOD GAS TOTAL HGB 11.3 G/DL (12.0-16.0); TEMP CORR TO 98.6
[2016-07-31 13:47] LABS: CRITICAL VALUE NO; DRAW SITE RT RADIAL; LITER FLOW 4 L/M; NUMBER OF ARTERIAL PUNCTURES 2; OXYGEN DEVICE NASAL CANNULA; STAT NO; ULNAR PULSE PRESENT
[2016-07-31] MEDS: levETIRAcetam 500 MG/5 ML UDC PO SCH ×2 (13:51→21:24)
[2016-07-31] MEDS: POLYVINYL ALC-POVIDONE 1.4/0.6% PF OPTH SOLN 0.4 ML 30 CT EACH EYE SCH (13:51)
[2016-07-31 14:16] LABS: INDIRECT BILIRUBIN 0.4 MG/DL (0.0-0.8); TOTAL BILIRUBIN ADULT 0.5 MG/DL (0.2-1.0)
--- NOTE | 2016-07-31 14:19 | MB ---
cc: GORDON KELSEY DATE OF CONSULTATION: 07/31/2016. REASON FOR CONSULTATION: Respiratory insufficiency following trache removal. HISTORY OF PRESENT ILLNESS: This is a 65-year-old white female who has had a past history for a CVA with left-sided weakness and has had a permanent tracheostomy in place. The patient apparently has pulled her trache tube out multiple times. She is a [facility] resident and was now readmitted after she had pulled out her trache tube. The patient however is on O2 at 5 liters nasal cannula and maintaining a saturation of 95%. She has mild wheezing and does not seem to be in severe respiratory distress. Her O2 sats are 96% on 5 liters. She is receiving tube feedings with a J-tube in place and has had previous episodes of aspiration as well as history for urinary tract infections. The patient is nonverbal, but does respond to commands and will open her mouth and move her right side. PAST MEDICAL HISTORY: Her past history has included: 1. History of antiphospholipid syndrome. 2. History of COPD. 3. Prior history of renal stent. 4. History of lupus. 5. Prior history of hypertension. 6. Stroke. PAST SURGICAL HISTORY: 1. Cholecystectomy. 2. Appendectomy. 3. PEG tube placement. 4. Hysterectomy in the past. 5. Skin grafts have been done in the past. ALLERGIES: 1. ROCEPHIN. 2. LATEX. MEDICATION LIST: 1. Keppra 500 milligrams twice a day. 2. Cipro 750 milligrams twice a day. 3. Lantus insulin 20 units subcutaneous twice a day. 4. Pepcid 20 milligrams twice a day. 5. Labetalol 200 milligrams p.o. three times a day. 6. Norvasc 10 milligrams a day. 7. Protonix 40 milligrams a day. 8. Nebulized albuterol four times a day. 9. Lasix 40 milligrams p.o. daily. 10. Humalog insulin per scale. FAMILY HISTORY: Noncontributory. HABITS: The patient smoked in the past a pack per day for over twenty years. No significant alcohol use. REVIEW OF SYSTEMS: The patient is nonverbal and unable to communicate well. PHYSICAL EXAMINATION: GENERAL: This is a moderately obese elderly white female who is in bed. She has weakness of the left side. VITAL SIGNS: Blood pressure 140/80, pulse is 66, respirations 20, temperature 98. HEAD, EYES, EARS, NOSE, THROAT: Head normocephalic. The pupils are reactive. Mild facial weakness on the left. Throat has secretions. NECK: She has a tracheostomy site that is open but has mild erythema around the stoma. No lymphadenopathy. CHEST: Equal movements with a few coarse wheezes bilaterally with diminished breath sounds at the periphery. HEART: Heart sounds are irregular. S1 and S2. No murmur. ABDOMEN: Abdomen soft and obese without masses. No organomegaly or tenderness. EXTREMITIES: Weakness of the left side. No edema. Peripheral pulses are diminished. NEUROLOGIC: Reflexes are 1+ on the right. Babinski is negative. SKIN: Dry and warm. IMPRESSION: 1. Status post tracheostomy tube removal with mild respiratory insufficiency. 2. History of CVA with left hemiplegia. 3. COPD. 4. Urinary tract infection, recurrent. PLAN: 1. The patient will have a blood gas study done. 2. Will leave her on 02 at four liters. 3. The family does not wish that the trache be put back if she is clinically stable and thus we will just continue with nebulized albuterol and Atrovent solution four times a day. 4. Frequent suctioning if necessary. 5. BiPAP12/5, FIO2 35 % if necessary and if the saturations drop below 90%. 6. The patient will be continued on antibiotic coverage including Cipro 500 milligrams twice a day. 7. Follow up chest x-ray this week. 8. CT of the soft tissue of the neck to see if there any upper airway obstruction. I will follow the case with you, Dr. Fuentes. Thank you for this consultation. MD RINA Duncan/EDWARD /1:32 PM /2:05 PM PJ
[2016-07-31] MEDS ORDERED: IOHEXOL 350 MG/ML 10 ML VIAL (for RAD DIAG) IV ONE (14:31)
--- NOTE | 2016-07-31 14:43 | RADRPT ---
EXAM DATE/TIME: 07/31/2016 14:28 [facility] COMPARISON: SOFT TISSUE NECK, June 28, 2016, 2:27. INDICATIONS : Upper airway stridor. IV CONTRAST: 50 cc Omnipaque 350 (iohexol) IV RADIATION DOSE: 19.98 CTDIvol (mGy) MEDICAL HISTORY : Stroke. Hypertension. Carcinoma; skin. SURGICAL HISTORY : Tonsillectomy. ENCOUNTER: Initial ACUITY: 1 day PAIN SCALE: Non-responsive LOCATION: Bilateral neck TECHNIQUE: Volumetric scanning of the neck was performed. Using automated exposure control and adjustment of th e mA and/or kV according to patient size, radiation dose was kept as low as reasonably achievable to obtain optimal diagnostic quality images. FINDINGS: Ventriculostomy catheter tip terminates the body right lateral ventricle. There is ventriculomegaly i ncompletely evaluated. Post surgical changes of left occipital craniectomy with hypodensity in left c erebellar hemisphere noted. There is a tracheostomy tube defect in the soft tissues at the midline. A tracheostomy tube has been removed. The nasopharynx, oropharynx, hypopharynx and larynx are unremark able. No obvious masses. Visualized lungs are clear. The there is calcific plaquing of the bilateral carotid bifurcations followup left greater than right. CONCLUSION: 1. No focal masses seen within the airway which appears patent. Cesar Meza MD on July 31, 2016 at 14:39 Board Certified Radiologist. This report was verified electronically.
[2016-07-31] MEDS: ONDANSETRON HCL 4 MG/2 ML VIAL IVP PRN (15:58)
[2016-07-31] MEDS: RESP: ALBUTEROL 2.5 MG/IPRATROPIUM 0.5 MG NEB (SCH) NEB ×2 (16:00→20:33)
[2016-07-31] MEDS: CIPROFLOXACIN 400 MG PREMIX 200 ML IV SCH (17:04)
[2016-07-31] MEDS: MORPHINE SULFATE 4 MG/ML INJ IV PRN (18:13)
--- NOTE | 2016-07-31 20:30 | PD.ID.CON ---
History of Present Illness Service ID Consult Requested By Dr Browne Reason for Consult UTI Primary Care Physician Sudhakar King MD Diagnoses: History of Present Illness This is a 65-year-old female with history of CVA nonverbal with left-sided weakness secondary to intracranial bleed, history of multiple UTIs, has a chronic Batista in, chronic respiratory failure status post tracheostomy ( it was removed by patient ) admitted due to shortness of breathing and abdominal pain. Patient resided in the [facility]. Urinalysis witrh prominent pyuria, clx P CT abd/pelvis wo acute changes Pt was started on cipro Per patient's patient is a DO NOT RESUSCITATE. Review of Systems ROS Limitations: Altered Mental Status, Speech Impaired Past Family Social History Allergies: Coded Allergies: Rocephin (Verified Allergy, Severe, HIVES, 07/31/16) Latex (Verified Allergy, Intermediate, Rash, 07/31/16) Past Medical History Afib, HTN Antiphospholipid syndrome, recent abdomen due to intracranial hemorrhage, respiratory failure with hypoxia, type 2 diabetes insulin-dependent Past Surgical History Cholecystectomy, Total hysterectomy, Kidney stone removal, posterior decompression on 05/04 Multiple tracheostomy placement Active Ordered Medications Medications where reviewed in EMR Antibiotics Include: cipro Family History Non-Contributory. Social History Past Tobacco x 20 yrs No ETOH. resides in retirement Physical Exam Vital Signs Vital Signs Date Time Temp Pulse Resp B/P Pulse Ox O2 Delivery O2 Flow Rate FiO2 07/31/16 15:12 97.8 83 14 121/71 97 07/31/16 12:15 96 Nasal Cannula 4.00 07/31/16 11:24 98.2 80 16 142/62 95 07/31/16 09:53 98.3 76 18 127/62 96 07/31/16 09:00 75 16 114/58 99 Nasal Cannula 4 07/31/16 06:55 61 16 144/67 100 Nasal Cannula 4 07/31/16 04:22 98 4.00 07/31/16 03:49 63 16 91 Nasal Cannula 4 07/31/16 03:40 16 91 Nasal Cannula 4 07/31/16 03:36 98.2 63 16 142/73 91 Physical Exam CONSTITUTIONAL/GENERAL: This is an aobese elderly patient, in no apparent distress. TUBES/LINES/DRAINS: SKIN: No jaundice, rashes, or lesions. Ecchymoses on upper extremities. No wounds seen anteriorly. Skin temperature appropriate. Not diaphoretic. HEAD: Atraumatic. Normocephalic. EYES: Pupils equal and round and reactive. Extraocular motions intact. No scleral icterus. No injection or drainage. Fundi not examined. ENT: Hearing not tested. Nose without bleeding or purulent drainage. Moist oral mucosae NECK: Trachea midline. Trach opening covered with intact dressing CARDIOVASCULAR: Regular rate and rhythm without murmurs, gallops, or rubs. No JVD. Peripheral pulses symmetric. RESPIRATORY/CHEST: Symmetric, unlabored respirations. Upper airway saounds on auscultation. Breath sounds equal bilaterally. No wheezes, rales, or rhonchi. GASTROINTESTINAL: Abdomen soft, non-tender, nondistended. No hepato-splenomegaly , or palpable masses. No guarding. Bowel sounds present. GENITOURINARY: Without palpable bladder distension. Batista catheter in place with cloudy dark yellow uirne MUSCULOSKELETAL: Extremities without clubbing, cyanosis, or edema. No joint tenderness or effusion noted. No calf tenderness. No mottling or clubbing. B/l foot drop LYMPHATICS: No palpable cervical or supraclavicular adenopathy. NEUROLOGICAL:Obtunded non verbal not follows commands. PSYCHIATRIC: unable to assess Laboratory Laboratory Tests Test 07/31/16 07/31/16 07/31/16 07/31/16 04:08 04:18 04:40 05:11 White Blood Count 12.3 Red Blood Count 4.29 Hemoglobin 11.2 Hematocrit 34.4 Mean Corpuscular Volume 80.1 Mean Corpuscular Hemoglobin 26.1 Mean Corpuscular Hemoglobin 32.6 Concent Red Cell Distribution Width 16.8 Platelet Count 158 Mean Platelet Volume 11.5 Neutrophils (%) (Auto) 71.5 Lymphocytes (%) (Auto) 16.3 Monocytes (%) (Auto) 7.9 Eosinophils (%) (Auto) 3.0 Basophils (%) (Auto) 1.3 Neutrophils # (Auto) 8.8 Lymphocytes # (Auto) 2.0 Monocytes # (Auto) 1.0 Eosinophils # (Auto) 0.4 Basophils # (Auto) 0.2 CBC Comment AUTO DIFF Differential Total Cells 100 Counted Neutrophils % (Manual) 57 Band Neutrophils % 2 Lymphocytes % 25 Monocytes % 10 Eosinophils % 4 Neutrophils # (Manual) 7.5 Metamyelocytes 2 Differential Comment FINAL DIFF MANUAL Platelet Estimate LOW Platelet Morphology Comment NORMAL Stomatocytes 1+ Prothrombin Time 10.4 Prothromb Time International 0.9 Ratio Activated Partial 24.5 Thromboplast Time Sodium Level 136 Potassium Level 3.9 Chloride Level 96 Carbon Dioxide Level 33.6 Anion Gap 6 Blood Urea Nitrogen 35 Creatinine 0.69 Estimat Glomerular Filtration 85 Rate Random Glucose 143 Calcium Level 9.9 Urine Color YELLOW Urine Turbidity HAZY Urine pH 5.5 Urine Specific [place] 1.021 Urine Protein 30 Urine Glucose (UA) NEG Urine Ketones NEG Urine Occult Blood LARGE Urine Nitrite NEG Urine Bilirubin NEG Urine Urobilinogen LESS THAN 2.0 Urine Leukocyte Esterase LARGE Urine RBC Urine WBC Urine WBC Clumps MANY Urine Bacteria MOD Urine Yeast (Budding) MOD Microscopic Urinalysis Comment CULTURE INDICATED Total Bilirubin 0.5 Direct Bilirubin 0.1 Indirect Bilirubin 0.4 Aspartate Amino Transf 17 (AST/SGOT) Alanine Aminotransferase 24 (ALT/SGPT) Alkaline Phosphatase 93 Total Protein 7.2 Albumin 3.7 Lipase 163 Test 07/31/16 13:35 Blood Gas Puncture Site RT RADIAL Blood Gas Patient Temperature 98.6 Blood Gas HCO3 32 Blood Gas Base Excess 7.7 Blood Gas Oxygen Saturation 92 Arterial Blood pH 7.46 Arterial Blood Partial 46 Pressure CO2 Arterial Blood Partial 66 Pressure O2 Arterial Blood Oxygen Content 14.7 Arterial Blood 1.6 Carboxyhemoglobin Arterial Blood Methemoglobin 0.5 Blood Gas Hemoglobin 11.3 Oxygen Delivery Device NASAL CANNULA Blood Gas Liter Flow 4 Date/Time Procedure Status Source Growth 07/31/16 04:40 Urine Culture Received Urine Clean Catch Pending Result Diagram: 07/31/16 0408 07/31/16 0418 Imaging Last Impressions Neck CT 07/31/16 1327 Signed Impressions: Service Date/Time: Sunday, July 31, 2016 14:28 - CONCLUSION: 1. No focal masses seen within the airway which appears patent. Cesar Meza MD Chest X-Ray 07/31/16 0000 Signed Impressions: Service Date/Time: Sunday, July 31, 2016 03:43 - CONCLUSION: No evidence of acute cardiopulmonary disease. Haim Anaya MD Abdomen/Pelvis CT 07/31/16 0000 Signed Impressions: Service Date/Time: Sunday, July 31, 2016 05:21 - CONCLUSION: 1. No obstruction or acute inflammatory changes are demonstrated. 2. Gastrojejunostomy tube without evidence of an acute complication. 3. Aortoiliac atherosclerosis again noted. No aneurysm. 4. Nonobstructing stones in both kidneys again seen without change. 5. 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 6. Mild bibasilar atelectasis. 7. Chronic pancreatitis. No evidence of acute pancreatitis. Haim Anaya MD Assessment and Plan Assessment and Plan UTI Leukocytosis - [facility] 2/2 UTI Presents from retirement High grade CFTX allergy -hives Abd pain - CT wo acute pathology ? 2/2 UTI Chronic resp failure with trach - pulled out trach - cont cipro for now fu clx report fu WBC Jessica Quick MD Jul 31, 2016 20:30
[2016-08-01] VITALS (13 sets, daily range): BP systolic 135–163; BP diastolic 63–72; PULSE 65–83; RESP 16–22; TEMP 97.6–99; O2SAT 87–99
[2016-08-01] MEDS: MORPHINE SULFATE 4 MG/ML INJ IV PRN ×2 (00:05→13:34)
[2016-08-01] MEDS: ONDANSETRON HCL 4 MG/2 ML VIAL IVP PRN (00:08)
[2016-08-01] MEDS: RESP: ALBUTEROL 2.5 MG/IPRATROPIUM 0.5 MG NEB (SCH) NEB ×4 (03:44→20:21)
[2016-08-01] MEDS: CIPROFLOXACIN 400 MG PREMIX 200 ML IV SCH ×2 (05:06→18:03)
[2016-08-01] MEDS: INSULIN ASPART SUPPLEMENTAL SCALE SQ SCH ×4 (06:27→21:00)
[2016-08-01 06:45] LABS: AUTOMATED NEUTROPHIL # 10.3 TH/MM3 (1.8-7.7); BASOPHIL % 0.2 % (0.0-2.0); EOSINOPHIL % 0.1 % (0.0-4.0); HEMO FLAGS DIFF FINAL; LYMPH % 13.5 % (9.0-44.0); LYMPHOCYTE # 1.8 TH/MM3 (1.0-4.8); MEAN CELL VOLUME 82.2 FL (80.0-100.0); MEAN CORPUSCULAR HEMOGLOBIN 25.5 PG (27.0-34.0); MONO % 8.7 % (0.0-8.0); NEUT % 77.5 % (16.0-70.0); PLATELET COUNT 146 TH/MM3 (150-450); RED BLOOD COUNT 4.13 MIL/MM3 (4.00-5.30); RED CELL DISTRIBUTION WIDTH 16.6 % (11.6-17.2); WHITE BLOOD COUNT 13.3 TH/MM3 (4.0-11.0)
[2016-08-01 07:09] LABS: ALKALINE PHOSPHATASE 126 U/L (45-117); ALT (GPT) 34 U/L (10-53); ANION GAP 5 MEQ/L (5-15); AST (GOT) 26 U/L (15-37); BICARBONATE 33.8 MEQ/L (21.0-32.0); BLOOD UREA NITROGEN 32 MG/DL (7-18); CHLORIDE 99 MEQ/L (98-107); GLOMERULAR FILTRATION RATE 77 ML/MIN (>89); POTASSIUM 3.8 MEQ/L (3.5-5.1); SODIUM (NA) 138 MEQ/L (136-145); TOTAL BILIRUBIN ADULT 0.3 MG/DL (0.2-1.0)
[2016-08-01] MEDS: levETIRAcetam 500 MG/5 ML UDC PO SCH ×2 (09:00→21:00)
[2016-08-01] MEDS: POLYVINYL ALC-POVIDONE 1.4/0.6% PF OPTH SOLN 0.4 ML 30 CT EACH EYE SCH (09:00)
[2016-08-01] MEDS: PANTOPRAZOLE SOD 20 MG DELAYED RELEASE TAB PO SCH ×2 (09:00→21:00)
[2016-08-01] MEDS: SODIUM CHLORIDE 0.9% FLUSH 10 ML FLUSH IV FLUSH SCH ×2 (09:00→20:59)
--- NOTE | 2016-08-01 09:56 | HHI.PR ---
Subjective Remarks Follow up for acute on chronic respiratory failure. RN and RT alerted me that patient's O2 sats dropped to 86% on 4L NC this morning, placed on face mask with O2 sat now 98%. The patient continues to be nonverbal however does feel short of breath and agrees to replacing trach if needed. Repeat ABG ordered. Called placed to Dr. Ireland. Otherwise, the patient denies any other medical complaints. Objective Vitals Vital Signs Date Time Temp Pulse Resp B/P Pulse Ox O2 Delivery O2 Flow Rate FiO2 08/01/16 09:28 98 Aerosol Mask 8.00 08/01/16 09:27 87 Nasal Cannula 4.00 08/01/16 08:37 97.7 83 16 162/69 95 08/01/16 04:00 99.0 79 18 138/69 99 08/01/16 00:24 16 08/01/16 00:00 97.8 71 16 156/72 96 07/31/16 20:33 96 Nasal Cannula 4.00 07/31/16 20:00 98.3 81 14 139/71 97 07/31/16 15:12 97.8 83 14 121/71 97 07/31/16 12:15 96 Nasal Cannula 4.00 07/31/16 11:24 98.2 80 16 142/62 95 07/31/16 09:53 98.3 76 18 127/62 96 I/O 07/31/16 07/31/16 07/31/16 08/01/16 08/01/16 08/01/16 07:00 15:00 23:00 07:00 15:00 23:00 Intake Total 410 ml Output Total 1250 ml 450 ml Balance 410 ml -1250 ml -450 ml Intake IV Total 400 ml Tube Feeding 10 ml Output Urine Total 1250 ml 450 ml Result Diagram: 08/01/16 0615 08/01/16 0615 Imaging Last Impressions Neck CT 07/31/16 1327 Signed Impressions: Service Date/Time: Sunday, July 31, 2016 14:28 - CONCLUSION: 1. No focal masses seen within the airway which appears patent. Cesar Meza MD Chest X-Ray 07/31/16 0000 Signed Impressions: Service Date/Time: Sunday, July 31, 2016 03:43 - CONCLUSION: No evidence of acute cardiopulmonary disease. Haim Anaya MD Abdomen/Pelvis CT 07/31/16 0000 Signed Impressions: Service Date/Time: Sunday, July 31, 2016 05:21 - CONCLUSION: 1. No obstruction or acute inflammatory changes are demonstrated. 2. Gastrojejunostomy tube without evidence of an acute complication. 3. Aortoiliac atherosclerosis again noted. No aneurysm. 4. Nonobstructing stones in both kidneys again seen without change. 5. 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 6. Mild bibasilar atelectasis. 7. Chronic pancreatitis. No evidence of acute pancreatitis. Haim Anaya MD Objective Remarks GENERAL: Well-nourished, well-developed elderly female patient in NAD. SKIN: Warm and dry. No rash. HEENT: Normocephalic. Atraumatic.Pupils equal and round. Mucous membranes pink and moist. NECK: Supple. Trachea midline. Stoma site clean, covered with dressing. CARDIOVASCULAR: Regular rate and rhythm. S1, S2 noted. No murmur appreciated. RESPIRATORY: No accessory muscle use. Upper airway congestion noted. Breath sounds equal bilaterally. GASTROINTESTINAL: Abdomen soft, non-tender, nondistended. Normoactive bowel sounds x4. PEG is in place. GENITOURINARY: Batista in place. MUSCULOSKELETAL: No obvious deformities. Extremities without clubbing, cyanosis , or edema. NEUROLOGICAL: Awake and alert. No obvious cranial nerve deficits. Motor grossly within normal limits. 5/5 muscle strength in RUE/RLE, 2/5 strength LUE/ LLE. Nonverbal, but understands and nods head yes or no. PSYCHIATRIC: Appropriate mood and affect; insight and judgment normal. Medications and IVs Current Medications Medications (Trade) Dose Ordered Sig/Michelle Route Start Time Stop Time Status Last Admin (Cipro 400 Mg Premix) 200 ml @ 200 mls/hr Q12H IV 07/31/16 18:00 08/01/16 05:06 (D50w (Vial) Inj) 25 ml UNSCH PRN IV PUSH 07/31/16 06:00 Glucagon 1 mg 1 mg UNSCH PRN OTHER 07/31/16 06:00 (NS 1000 ml Inj) 1,000 ml @ 100 mls/hr Q10H IV 07/31/16 06:00 07/31/16 21:24 (NS Flush) 2 ml UNSCH PRN IV FLUSH 07/31/16 06:00 08/01/16 00:05 (NS Flush) 2 ml BID IV FLUSH 07/31/16 09:00 (Zofran Inj) 4 mg Q6H PRN IVP 07/31/16 06:00 08/01/16 00:08 (Dulcolax Supp) 10 mg DAILY PRN RECTAL 07/31/16 06:00 (Morphine Inj) 2 mg Q3H PRN IV 07/31/16 06:00 08/01/16 00:05 (Norvasc) 10 mg DAILY PO 07/31/16 09:00 07/31/16 10:53 (Pepcid) 20 mg BID PO 07/31/16 09:00 07/31/16 21:23 (Lasix) 40 mg DAILY PO 07/31/16 09:00 07/31/16 10:53 (Levemir Inj) 20 units Q12HR SQ 07/31/16 09:00 07/31/16 21:24 (Trandate) 200 mg TID PO 07/31/16 09:00 07/31/16 17:04 (Keppra Liq) 500 mg BID PO 07/31/16 09:00 07/31/16 21:24 (Protonix) 20 mg BID PO 07/31/16 09:00 07/31/16 21:23 (Refresh Classic 1.4-0.6% Pf Opth Soln) 1 drop DAILY EACH EYE 07/31/16 09:00 07/31/16 13:51 A/P Assessment and Plan 65-year-old female with: Acute on Chronic Respiratory Failure with hypoxia: status post tracheostomy removed by patient multiple times. O2 sat 86% on 4L NC. -Per [facility] patient has increased work of breathing but her oxygen saturation has been stable. Patient has been on 4L of nasal cannula. -Increased work of breathing seems more due to upper respiratory. -Prior physician Dr. Browne discussed with patient's who is the healthcare proxy and stated to asked patient if she wants to trach again, Patient nodded her head yes. -Consulted gauge and weigh machine adjuster, Patient may need trach replaced. -patient's O2 sat dropped again today, a lot of upper airway secretions suctioned, repeat ABG shows worsening with HCO increasing from 46 to 59 today. -1045hrs: discussed with Dr. Ireland as RN & RT concerned patient getting worse , reviewed ABG, recommends using lowest amount of O2 to keep O2 sat >92%, recc Venturi mask at 35-50%, ok to use Bipap if needed, and consult Dr. Mcfarlane to replace trach. Discussed plan with RN and RT. UTI -Patient has been treated multiple times in the past due to UTIs. Her last cultures grew Klebsiella, she was discharged on Cipro. -Continue IV Cipro for now -Consulted ID since patient is being treated multiple times due to UTI. -Follow urine culture -Most likely she will need her Batista replaced Abdominal pain -Unsure etiology. May be secondary to PEG versus UTI. -CT scan the abdomen/pelvis shows no acute process. -Will treat UTI and continue to monitor clinically. History of recent intracranial hemorrhagic stroke/large acute posterior fossa hemorrhage with intraventricular extension -s/p posterior decompression on 05/[address] Chavez. -Patient on Keppra for prophylaxis. -Stable. Hypertension/GERD -Continue with home medication. Antiphospholipid syndrome -Previously on Coumadin but had a large intracranial hemorrhagic stroke. -Coumadin is being held due to the above. Type 2 diabetes insulin-dependent -continue Lantus 20 units twice a day. -continue SSI DVT prophylaxis -Contraindicated secondary to intracranial bleed. -SCDs. Discussed with Dr. Plasencia, Dr. Ireland, RN, RT. Marcie Barker PA-C Aug 01, 2016 9:56 am
[2016-08-01 09:58] LABS: BLOOD GAS BASE EXCESS 8.2 mmol/L (-2-2); BLOOD GAS CARBOXYHEMOGLOBIN 1.3 % (0-4); BLOOD GAS HCO3 34 mmol/L (22-26); BLOOD GAS METHEMOGLOBIN 0.3 % (0-2); BLOOD GAS O2 HGB SATURATION 99 % (90-100); BLOOD GAS OXYGEN CONTENT 15.5 Vol % (12.0-20.0); BLOOD GAS PCO2 60 mmHg (38-42); BLOOD GAS PO2 305 mmHG (61-120); BLOOD GAS TOTAL HGB 10.7 G/DL (12.0-16.0); CRITICAL VALUE YES; LITER FLOW 8 L/M; OXYGEN DEVICE SM; TEMP CORR TO 98.6
[2016-08-01 09:59] LABS: DRAW SITE LT RADIAL; NUMBER OF ARTERIAL PUNCTURES 2; STAT NO; ULNAR PULSE PRESENT
[2016-08-01] MEDS: FUROSEMIDE 40 MG TAB PO SCH (10:52)
[2016-08-01] MEDS: INSULIN DETEMIR 100 UNITS/ML VIAL SQ SCH ×2 (10:52→21:00)
[2016-08-01] MEDS: FAMOTIDINE 20 MG TAB PO SCH ×2 (10:53→21:00)
[2016-08-01] MEDS: LABETALOL HCL 200 MG TAB PO SCH ×3 (10:54→18:03)
[2016-08-01] MEDS: SODIUM CHLOR 0.9% 1000 ML INJ 1,000 ML IV SCH (13:33)
--- NOTE | 2016-08-01 16:11 | HHI.PR ---
Subjective Remarks She had some congestion and upper airway symptoms early today. On a ventimask 40 %. No resp distress now. Objective Vital Signs Date Time Temp Pulse Resp B/P Pulse Ox O2 Delivery O2 Flow Rate FiO2 08/01/16 15:13 94 Venturi Mask 35 08/01/16 11:51 97.6 67 18 135/63 95 08/01/16 10:59 97 Venturi Mask 35 08/01/16 09:28 98 Aerosol Mask 8.00 08/01/16 09:27 87 Nasal Cannula 4.00 08/01/16 08:37 97.7 83 16 162/69 95 08/01/16 04:00 99.0 79 18 138/69 99 08/01/16 00:24 16 08/01/16 00:00 97.8 71 16 156/72 96 07/31/16 20:33 96 Nasal Cannula 4.00 07/31/16 20:00 98.3 81 14 139/71 97 I/O 07/31/16 07/31/16 07/31/16 08/01/16 08/01/16 08/01/16 07:00 15:00 23:00 07:00 15:00 23:00 Intake Total 410 ml Output Total 1250 ml 450 ml Balance 410 ml -1250 ml -450 ml Intake IV Total 400 ml Tube Feeding 10 ml Output Urine Total 1250 ml 450 ml Result Diagram: 08/01/16 0615 08/01/16 0615 Objective Remarks GENERAL: This is a moderately obese elderly white female who is in bed. She has weakness of the left side. HEAD, EYES, EARS, NOSE, THROAT: Head normocephalic. The pupils are reactive. Mild facial weakness on the left. Throat clear NECK: She has a tracheostomy site that is open but has mild erythema around the stoma. No lymphadenopathy. CHEST: Equal movements with a few coarse wheezes bilaterally with diminished breath sounds at the periphery. HEART: Heart sounds are irregular. S1 and S2. No murmur. ABDOMEN: Abdomen soft and obese without masses. No organomegaly or tenderness. EXTREMITIES: Weakness of the left side. No edema. Peripheral pulses are diminished. NEUROLOGIC: Reflexes are 1+ on the right. Babinski is negative. SKIN: Dry and warm. Assessment and Plan Assessment and Plan IMPRESSION: 1. Status post tracheostomy tube removal with mild respiratory insufficiency. 2. History of CVA with left hemiplegia. 3. COPD. 4. Urinary tract infection, recurrent. Plan : 1. Place on O2 at 3 L. 2. Surgical consult if she needs a new Trach tube. 3. Continue christian lopes. 4. Tube feeds at 55 CC 5. CXR in am with BMP. 6. IS at bedside qid. 7. Family states that they don't want the trach back in. Jeanette Ireland MD Aug 01, 2016 16:11
[2016-08-01] MEDS: DEXAMETHASONE SOD PHOS 4 MG/ML VIAL IV PUSH SCH (21:00)
[2016-08-01] MEDS: ACETAMINOPHEN 650 MG/20.3 ML UDC PO PRN (23:32)
[2016-08-02] VITALS (9 sets, daily range): BP systolic 149–167; BP diastolic 65–75; PULSE 73–99; RESP 16–20; TEMP 97.8–101.3; O2SAT 94–100
--- NOTE | 2016-08-02 00:40 | PD.CAR.PN ---
CVT Progress Note Subjective/Hospital Course: Consult received Patient with previous tracheostomy, removed interim. If patient requires by clinical parameters a new trach, will take to OR for redo tracheostomy. Thanks J Objective: Vital Signs Date Time Temp Pulse Resp B/P Pulse Ox O2 Delivery O2 Flow Rate FiO2 08/01/16 20:26 98 Venturi Mask 6.00 31 08/01/16 18:30 98.0 71 22 145/71 96 08/01/16 17:06 98.1 65 16 163/70 95 08/01/16 15:13 94 Venturi Mask 35 08/01/16 11:51 97.6 67 18 135/63 95 08/01/16 10:59 97 Venturi Mask 35 08/01/16 09:28 98 Aerosol Mask 8.00 08/01/16 09:27 87 Nasal Cannula 4.00 08/01/16 08:37 97.7 83 16 162/69 95 08/01/16 04:00 99.0 79 18 138/69 99 Result Diagram: 08/01/16 0615 08/01/16 0615 Sandra Mcfarlane MD August 02, 2016 00:40
[2016-08-02] MEDS: SODIUM CHLOR 0.9% 1000 ML INJ 1,000 ML IV SCH ×3 (03:33→17:31)
[2016-08-02] MEDS: RESP: ALBUTEROL 2.5 MG/IPRATROPIUM 0.5 MG NEB (SCH) NEB ×4 (03:55→19:59)
[2016-08-02] MEDS: CIPROFLOXACIN 400 MG PREMIX 200 ML IV SCH ×2 (05:22→17:31)
[2016-08-02] MEDS: INSULIN ASPART SUPPLEMENTAL SCALE SQ SCH ×4 (06:00→20:45)
[2016-08-02] MEDS: SODIUM CHLORIDE 0.9% FLUSH 10 ML FLUSH IV FLUSH SCH ×2 (07:48→20:46)
--- NOTE | 2016-08-02 09:43 | RADRPT ---
EXAM DATE/TIME: 08/02/2016 09:23 [facility] COMPARISON: No previous studies available for comparison. INDICATIONS : Fever. MEDICAL HISTORY : Renal calculi. Hypertension. Lupus. SURGICAL HISTORY : Appendectomy. Cholecystectomy. ENCOUNTER: Subsequent ACUITY: 3 days PAIN SCORE: Non-responsive. LOCATION: Bilateral chest FINDINGS: A single view of the chest demonstrates the lungs to be symmetrically aerated without evidence of mas s, infiltrate or effusion. Left-sided IMPLEMENTATION SPECIALIST shunt catheter noted. The cardiomediastinal contours are un remarkable. Osseous structures are intact. CONCLUSION: No acute disease. Santana Mena MD on August 02, 2016 at 9:41 Board Certified Radiologist. This report was verified electronically.
[2016-08-02] MEDS: levETIRAcetam 500 MG/5 ML UDC PO SCH ×2 (10:08→20:44)
[2016-08-02] MEDS: ACETAMINOPHEN 650 MG/20.3 ML UDC PO PRN ×2 (10:08→23:11)
[2016-08-02] MEDS: LABETALOL HCL 200 MG TAB PO SCH ×3 (10:09→17:31)
[2016-08-02] MEDS: PANTOPRAZOLE SOD 20 MG DELAYED RELEASE TAB PO SCH ×2 (10:09→20:46)
[2016-08-02] MEDS: POLYVINYL ALC-POVIDONE 1.4/0.6% PF OPTH SOLN 0.4 ML 30 CT EACH EYE SCH (10:09)
[2016-08-02] MEDS: FAMOTIDINE 20 MG TAB PO SCH ×2 (10:09→20:46)
[2016-08-02] MEDS: FUROSEMIDE 40 MG TAB PO SCH (10:09)
[2016-08-02] MEDS: DEXAMETHASONE SOD PHOS 4 MG/ML VIAL IV PUSH SCH ×2 (10:09→20:45)
[2016-08-02] MEDS: INSULIN DETEMIR 100 UNITS/ML VIAL SQ SCH ×2 (10:09→20:45)
[2016-08-02 12:02] LABS: AUTOMATED NEUTROPHIL # 7.6 TH/MM3 (1.8-7.7); BASOPHIL % 0.1 % (0.0-2.0); EOSINOPHIL % 0.1 % (0.0-4.0); HEMATOCRIT 32.9 % (35.0-46.0); HEMO FLAGS DIFF FINAL; LYMPH % 15.9 % (9.0-44.0); LYMPHOCYTE # 1.6 TH/MM3 (1.0-4.8); MEAN CELL VOLUME 82.4 FL (80.0-100.0); MEAN CORPUSCULAR HGB CONC 31.5 % (32.0-36.0); MONO % 7.1 % (0.0-8.0); NEUT % 76.8 % (16.0-70.0); PLATELET COUNT 151 TH/MM3 (150-450); RED CELL DISTRIBUTION WIDTH 16.7 % (11.6-17.2); WHITE BLOOD COUNT 9.9 TH/MM3 (4.0-11.0)
--- NOTE | 2016-08-02 12:12 | HHI.PR ---
Subjective Remarks Follow up for acute on chronic respiratory failure, UTI. The patient is awake, alert, again nonverbal but nods head yes and no. She is having fevers this morning, Tmax 101.3. Family member at bedside, reports the patient was complaining of chest pain earlier today. Also yesterday evening the patient wrote down "NO" when asked by family if she wants trach replaced. Family agrees to discuss with palliative care. Objective Vitals Vital Signs Date Time Temp Pulse Resp B/P Pulse Ox O2 Delivery O2 Flow Rate FiO2 08/02/16 08:00 101.3 98 20 167/72 96 08/02/16 07:39 5.00 08/02/16 04:00 98.0 83 20 149/65 100 08/02/16 03:28 Nasal Cannula 5.00 08/02/16 00:00 99.4 73 19 155/67 98 08/01/16 23:50 Nasal Cannula 5.00 08/01/16 22:00 70 08/01/16 20:48 Venturi Mask 6.00 35 08/01/16 20:26 98 Venturi Mask 6.00 31 08/01/16 20:00 98.7 65 20 137/66 08/01/16 18:30 98.0 71 22 145/71 96 08/01/16 17:06 98.1 65 16 163/70 95 08/01/16 15:13 94 Venturi Mask 35 I/O 08/01/16 08/01/16 08/01/16 08/02/16 08/02/16 08/02/16 07:00 15:00 23:00 07:00 15:00 23:00 Intake Total 3392 ml 553 ml 849 ml Output Total 450 ml 1100 ml 600 ml Balance -450 ml 3392 ml -547 ml 249 ml Intake IV Total 2682 ml 331 ml 440 ml Tube Feeding 710 ml 222 ml 409 ml Output Urine Total 450 ml 1100 ml 600 ml Result Diagram: 08/01/16 0615 08/01/16 0615 Imaging Last Impressions Chest X-Ray 08/02/16 0000 Signed Impressions: Service Date/Time: Tuesday, August 02, 2016 09:23 - CONCLUSION: No acute disease. Santana Mena MD Neck CT 07/31/16 1327 Signed Impressions: Service Date/Time: Sunday, July 31, 2016 14:28 - CONCLUSION: 1. No focal masses seen within the airway which appears patent. Cesar Meza MD Abdomen/Pelvis CT 07/31/16 0000 Signed Impressions: Service Date/Time: Sunday, July 31, 2016 05:21 - CONCLUSION: 1. No obstruction or acute inflammatory changes are demonstrated. 2. Gastrojejunostomy tube without evidence of an acute complication. 3. Aortoiliac atherosclerosis again noted. No aneurysm. 4. Nonobstructing stones in both kidneys again seen without change. 5. 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 6. Mild bibasilar atelectasis. 7. Chronic pancreatitis. No evidence of acute pancreatitis. Haim Anaya MD Objective Remarks GENERAL: Well-nourished, well-developed elderly female patient in [facility]. SKIN: Warm and dry. No rash. HEENT: Normocephalic. Atraumatic.Pupils equal and round. Mucous membranes pink and moist. NECK: Supple. Trachea midline. Stoma site clean, covered with dressing. CARDIOVASCULAR: Regular rate and rhythm. S1, S2 noted. No murmur appreciated. RESPIRATORY: No accessory muscle use. Upper airway congestion noted. Breath sounds equal bilaterally. GASTROINTESTINAL: Abdomen soft, non-tender, nondistended. Normoactive bowel sounds x4. PEG is in place. GENITOURINARY: Batista in place. MUSCULOSKELETAL: No obvious deformities. Extremities without clubbing, cyanosis , or edema. NEUROLOGICAL: Awake and alert. No obvious cranial nerve deficits. Motor grossly within normal limits. 5/5 muscle strength in RUE/RLE, 2/5 strength LUE/ LLE. Nonverbal, but understands and nods head yes or no. PSYCHIATRIC: Appropriate mood and affect; insight and judgment normal. Medications and IVs Current Medications Medications (Trade) Dose Ordered Sig/Michelle Route Start Time Stop Time Status Last Admin (Cipro 400 Mg Premix) 200 ml @ 200 mls/hr Q12H IV 07/31/16 18:00 08/02/16 05:22 (D50w (Vial) Inj) 25 ml UNSCH PRN IV PUSH 07/31/16 06:00 Glucagon 1 mg 1 mg UNSCH PRN OTHER 07/31/16 06:00 (NS 1000 ml Inj) 1,000 ml @ 100 mls/hr Q10H IV 07/31/16 06:00 08/02/16 03:33 (NS Flush) 2 ml UNSCH PRN IV FLUSH 07/31/16 06:00 08/01/16 00:05 (NS Flush) 2 ml BID IV FLUSH 07/31/16 09:00 (Zofran Inj) 4 mg Q6H PRN IVP 07/31/16 06:00 08/01/16 00:08 (Dulcolax Supp) 10 mg DAILY PRN RECTAL 07/31/16 06:00 (Norvasc) 10 mg DAILY PO 07/31/16 09:00 08/02/16 10:09 (Pepcid) 20 mg BID PO 07/31/16 09:00 08/02/16 10:09 (Lasix) 40 mg DAILY PO 07/31/16 09:00 08/02/16 10:09 (Levemir Inj) 20 units Q12HR SQ 07/31/16 09:00 08/02/16 10:09 (Trandate) 200 mg TID PO 07/31/16 09:00 08/02/16 10:09 (Keppra Liq) 500 mg BID PO 07/31/16 09:00 08/02/16 10:08 (Protonix) 20 mg BID PO 07/31/16 09:00 08/02/16 10:09 (Refresh Classic 1.4-0.6% Pf Opth Soln) 1 drop DAILY EACH EYE 07/31/16 09:00 08/02/16 10:09 (Tylenol 650 Mg/ 20 ml Liq) 650 mg Q6H PRN PO 08/01/16 13:15 08/02/16 10:08 (Decadron Inj) 4 mg Q12HR IV PUSH 08/01/16 21:00 08/03/16 20:59 08/02/16 10:09 Urinary Catheter: Yes Assessment to: Continue Batista insert reason: Measure Accurate Output Date of Insertion: August 02, 2016 A/P Assessment and Plan 65-year-old female with: Acute on Chronic Respiratory Failure with Hypoxia: s/p tracheostomy removed by patient multiple times. O2 sat 86% on 4L NC. Per detention patient has increased work of breathing but her oxygen saturation has been stable. Patient has been on 4L of nasal cannula. Increased work of breathing seems more due to upper respiratory. Prior physician Dr. 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 -08/01 patient's O2 sat dropped to 86%, a lot of upper airway secretions suctioned, repeat ABG shows worsening with pCO2 increasing from 46 to 60 -discussed with Dr. Ireland, recommends using lowest amount of O2 to keep O2 sat >92% -Consulted Dr. Mcfarlane to replace trach if necessary. -started on IV Decadron 4mg q12h per pulm, continue duonebs q6h and prn -patient's breathing improved, O2 sat 96-100% on 5L NC -per family, patient adamantly does not want trach replaced -consult palliative care to discuss treatment goals and planning, hospice appropriate? Sepsis with UTI (Tmax 101.3, tachycardic HR 98, suspect source-UTI). Urine culture with Group D Enterococcus and Annemarie Albicans -Continue IV Cipro for now -Consulted ID since patient is being treated multiple times due to UTI, appreciate assistance -Discussed with RN to replace Batista today 08/02 -check blood cultures -repeat CXR 08/02 images reviewed, unremarkable -IV Vanco added per ID Abdominal pain -Unclear etiology. May be secondary to PEG versus UTI. -CT scan the abdomen/pelvis shows no acute process. -Will treat UTI and continue to monitor clinically. History of recent intracranial hemorrhagic stroke/large acute posterior fossa hemorrhage with intraventricular extension -s/p posterior decompression on 05/[address] Chavez. -Patient on Keppra for prophylaxis. -Stable. Hypertension/GERD -Continue with home medication. Antiphospholipid syndrome -Previously on Coumadin but had a large intracranial hemorrhagic stroke. -Coumadin is being held due to the above. Type 2 diabetes insulin-dependent -continue Lantus 20 units twice a day. -continue SSI Atypical Chest Pain: reportedly patient complained of chest pain to her family earlier today 08/02, denies any currently, suspect secondary to respiratory. -check serial cardiac enzymes to rule out ACS -monitor on telemetry DVT prophylaxis -Contraindicated secondary to intracranial bleed. -SCDs. Discussed with Dr. Plasencia, RN, patient's family. Marcie Braker PA-C August 02, 2016 12:12
[2016-08-02 12:25] LABS: BICARBONATE 33.4 MEQ/L (21.0-32.0); POTASSIUM 4.1 MEQ/L (3.5-5.1)
--- NOTE | 2016-08-02 13:04 | HHI.PR ---
Subjective Remarks Awake and stable . On a N/C at 4 L. On antibiotics. No fever. Objective Vital Signs Date Time Temp Pulse Resp B/P Pulse Ox O2 Delivery O2 Flow Rate FiO2 08/02/16 12:00 101.1 88 16 150/70 99 08/02/16 08:00 101.3 98 20 167/72 96 08/02/16 07:39 5.00 08/02/16 04:00 98.0 83 20 149/65 100 08/02/16 03:28 Nasal Cannula 5.00 08/02/16 00:00 99.4 73 19 155/67 98 08/01/16 23:50 Nasal Cannula 5.00 08/01/16 22:00 70 08/01/16 20:48 Venturi Mask 6.00 35 08/01/16 20:26 98 Venturi Mask 6.00 31 08/01/16 20:00 98.7 65 20 137/66 08/01/16 18:30 98.0 71 22 145/71 96 08/01/16 17:06 98.1 65 16 163/70 95 08/01/16 15:13 94 Venturi Mask 35 I/O 08/01/16 08/01/16 08/01/16 08/02/16 08/02/16 08/02/16 07:00 15:00 23:00 07:00 15:00 23:00 Intake Total 3392 ml 553 ml 849 ml Output Total 450 ml 1100 ml 600 ml Balance -450 ml 3392 ml -547 ml 249 ml Intake IV Total 2682 ml 331 ml 440 ml Tube Feeding 710 ml 222 ml 409 ml Output Urine Total 450 ml 1100 ml 600 ml Result Diagram: 08/02/16 1041 08/02/16 1041 Objective Remarks GENERAL: This is a moderately obese elderly white female who is in bed. She has weakness of the left side. HEAD, EYES, EARS, NOSE, THROAT: Head normocephalic. The pupils are reactive. Mild facial weakness on the left. Throat clear NECK: She has a tracheostomy site that is open. No lymphadenopathy. CHEST: Equal movements with a few coarse wheezes bilaterally with diminished breath sounds at the periphery. HEART: Heart sounds are irregular. S1 and S2. No murmur. ABDOMEN: Abdomen soft and obese without masses. No organomegaly or tenderness. EXTREMITIES: Weakness of the left side. No edema. Peripheral pulses are diminished. NEUROLOGIC: Reflexes are 1+ on the right. Babinski is negative. SKIN: Dry and warm. Assessment and Plan Assessment and Plan IMPRESSION: 1. Status post tracheostomy tube removal with mild respiratory insufficiency. 2. History of CVA with left hemiplegia. 3. COPD. 4. Urinary tract infection, recurrent. Plan : 1. Place on O2 at 4 L. 2. Surgical consult if she needs a new Trach tube. 3. Continue nebsqid , duoneb. 4. Tube feeds at 55 CC 5. CBC, BMP 6. IS at bedside qid. Jeanette Ireland MD August 02, 2016 13:04
[2016-08-02] MEDS ORDERED: Vancomycin Consult Pharmacy 1 EA OTHER SCH (16:30)
[2016-08-02] MEDS: VANCOMYCIN INJ 1,200 MG in SODIUM CHLOR 0.9% 250 ML INJ 250 ML IV SCH (18:21)
[2016-08-02 18:23] LABS: BACTERIA, URINE RARE /hpf; BLOOD, URINE MOD (NEG); GLUCOSE,URINE NEG (NEG); KETONE, URINE NEG (NEG); NITRITE,URINE NEG (NEG); URINE COLOR YELLOW (YELLW/STRAW)
[2016-08-02 18:25] LABS: COMMENT (UR) CATH-CULTURE IND; CULTURE IF INDICATED CATH CULTURE IND
[2016-08-02] MEDS: FLUCONAZOLE 200 MG PREMIX BAG 100 ML IV SCH (20:00)
[2016-08-02] MEDS: RESP: ALBUTEROL 2.5 MG/IPRATROPIUM 0.5 MG NEB (PRN) NEB (21:37)
[2016-08-03] VITALS (9 sets, daily range): BP systolic 155–181; BP diastolic 70–86; PULSE 64–100; RESP 18–20; TEMP 99.1–100.5; O2SAT 94–99
[2016-08-03] MEDS: RESP: ALBUTEROL 2.5 MG/IPRATROPIUM 0.5 MG NEB (SCH) NEB ×4 (03:46→21:14)
[2016-08-03] MEDS: CIPROFLOXACIN 400 MG PREMIX 200 ML IV SCH (04:36)
[2016-08-03] MEDS: VANCOMYCIN INJ 1,200 MG in SODIUM CHLOR 0.9% 250 ML INJ 250 ML IV SCH ×2 (05:45→17:30)
[2016-08-03] MEDS: INSULIN ASPART SUPPLEMENTAL SCALE SQ SCH ×4 (05:45→19:55)
[2016-08-03] MEDS: ACETAMINOPHEN 650 MG/20.3 ML UDC PO PRN (09:09)
[2016-08-03] MEDS: FAMOTIDINE 20 MG TAB PO SCH ×2 (09:10→19:56)
[2016-08-03] MEDS: FUROSEMIDE 40 MG TAB PO SCH (09:10)
[2016-08-03] MEDS: LABETALOL HCL 200 MG TAB PO SCH ×3 (09:10→17:30)
[2016-08-03] MEDS: PANTOPRAZOLE SOD 20 MG DELAYED RELEASE TAB PO SCH ×2 (09:10→19:56)
[2016-08-03] MEDS: levETIRAcetam 500 MG/5 ML UDC PO SCH ×2 (09:10→19:56)
[2016-08-03] MEDS: INSULIN DETEMIR 100 UNITS/ML VIAL SQ SCH ×2 (09:11→19:55)
[2016-08-03] MEDS: POLYVINYL ALC-POVIDONE 1.4/0.6% PF OPTH SOLN 0.4 ML 30 CT EACH EYE SCH (09:12)
[2016-08-03] MEDS: SODIUM CHLORIDE 0.9% FLUSH 10 ML FLUSH IV FLUSH SCH ×2 (09:12→19:57)
[2016-08-03] MEDS: DEXAMETHASONE SOD PHOS 4 MG/ML VIAL IV PUSH SCH (09:12)
[2016-08-03 09:46] LABS: AUTOMATED NEUTROPHIL # 7.7 TH/MM3 (1.8-7.7); BASOPHIL % 0.2 % (0.0-2.0); HEMATOCRIT 33.5 % (35.0-46.0); LYMPH % 14.5 % (9.0-44.0); LYMPHOCYTE # 1.5 TH/MM3 (1.0-4.8); MEAN CELL VOLUME 80.8 FL (80.0-100.0); MEAN CORPUSCULAR HEMOGLOBIN 26.9 PG (27.0-34.0); MEAN CORPUSCULAR HGB CONC 33.3 % (32.0-36.0); MONO % 9.9 % (0.0-8.0); NEUT % 75.4 % (16.0-70.0); PLATELET COUNT 156 TH/MM3 (150-450); RED BLOOD COUNT 4.15 MIL/MM3 (4.00-5.30); WHITE BLOOD COUNT 10.1 TH/MM3 (4.0-11.0)
[2016-08-03 09:53] LABS: HEMO FLAGS AUTO DIFF
[2016-08-03 10:30] LABS: SCAN/DIFF AUTO DIFF CONFIRMED
[2016-08-03 10:32] LABS: BICARBONATE 29.5 MEQ/L (21.0-32.0); POTASSIUM 4.1 MEQ/L (3.5-5.1)
--- NOTE | 2016-08-03 12:24 | PD.CONS ---
Consult Service Palliative Care Consult Requested By Dr. Plasencia . Primary Care Physician Sudhakar King MD . Reason for Consultation a. To assist with evaluation and management of symptoms including: Dyspnea , restlessness, agitation b. To assist medical decision maker(s) with: better understanding of current medical conditions; weighing benefits/burdens of medical treatment options; making medical treatment decisions. , HPI History of Present Illness This 65-year-old female, with a past history of ischemic strokes in 2002 and hemorrhagic stroke in April 2016, as well as diabetes, antiphospholipid syndrome, atrial fibrillation, and COPD, was readmitted from her detention with fever and a dislodged trach. The patient was in good health until 2002 when she suffered multiple ischemic strokes. After Rehab, she was able to walk and function somewhat independently again. However, on May 03, 2016, the patient became unresponsive at home and was brought to the hospital where CT scan revealed a large posterior fossa hemorrhage. During the hospitalization, she received a tracheostomy and PEG tube, then went to [facility] and ultimately was transferred to [facility]. She was awake at times, and could follow simple commands, but only had movement of her right arm/hand and remained nonverbal. She has had recurrent infections, with UTI in June 2016, pneumonia in July 2016, and now is admitted with UTI and possible sepsis again. She has been steadily declining, with significant weight loss that the patient's and [id number] estimate to be at least 30 pounds since her hemorrhage. The patient has been pulling her trach out over the past few weeks, and had it replaced in the emergency department on 06/28/16, 07/04/16, and 07/07/16. It was dislodged again in recent days, and the patient became dyspneic and was brought to the emergency department on 07/31/16. Findings in the emergency department included: * Nonverbal, somewhat lethargic, dyspneic, intermittent complaint of possible abdominal pain * Temp 98.2, pulse 63, respirations 16, blood pressure 142/73, oxygen saturation 98% on 4 L nasal cannula * White count 12.3, hemoglobin 11.2 * INR 0.9 * Sodium 136, creatinine 0.69, albumin 3.7 * Chest x-ray with no acute findings * Urinalysis consistent with UTI * Abdomen/pelvis CT scan again demonstrated the gastrojejunostomy tube and perhaps some atelectasis at the lung bases. Cultures were obtained, antibiotics were initiated, and the patient was admitted. She had a CT scan of the neck that was unremarkable. She had an episode of hypoxia on 08/01/16. The urine culture grew Annemarie and a group D enterococcus. On 08/02/16, she had fever as high as 101.3. A repeat chest x-ray remained negative. Her health care providers had had discussions with the family about replacing the trach again, and they did not want that done. Palliative Care was consulted to assist with symptom management, and to enter into discussions with the family regarding the current illnesses, prognosis, and the benefits and burdens of the various treatment options. . 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 After the 2002 strokes and her stay at the rehabilitation center, the patient could drive a car again, but had some debility with residual weakness in the left arm and leg. Since her hemorrhage and April 2016, the patient has been bedbound, only able to move her right arm and hand, but usually not in a purposeful way. She remained nonverbal. She required total care at the detention. . Review of Systems ROS Limitations: Clinical Condition Constitutional: COMPLAINS OF: Fever, Weight loss Endocrine: DENIES: Polyuria Eyes: DENIES: Eye inflammation Ears, nose, mouth, throat: DENIES: Epistaxis Respiratory: COMPLAINS OF: Cough, Shortness of breath Cardiovascular: DENIES: Lower Extremity Edema Gastrointestinal: DENIES: Bloody stools, Constipation, Diarrhea, Vomiting, Vomiting blood Genitourinary: DENIES: Hematuria Musculoskeletal: DENIES: Joint Swelling Integumentary: DENIES: Rash Hematologic/Lymphatics: DENIES: Bruising Immunologic/Allergic: DENIES: Urticaria Neurologic: COMPLAINS OF: Localized weakness (both legs and the left arm), Speech Problems (nonverbal), DENIES: Seizures Psychiatric: COMPLAINS OF: Confusion, Agitation (restless and pulling her trach out repeatedly) Past Family Social History Coded Allergies: Rocephin (Verified Allergy, Severe, HIVES, 07/31/16) Latex (Verified Allergy, Intermediate, Rash, 07/31/16) Past Medical History * Hypoxic respiratory failure * Fever, UTI, probable sepsis * Worsening debility since posterior fossa hemorrhage 05/03/16 * Recurrent infections since hemorrhage * History of multiple ischemic strokes resulting in left-sided weakness 2002 * COPD * Diabetes type 2 * Antiphospholipid syndrome, on Coumadin until the hemorrhage in April * Atrial fibrillation * Hypertension * Depression * Hyperlipidemia . Past Surgical History * Appendectomy * Cholecystectomy * Total hysterectomy * Kidney stone removal * Craniotomy, posterior decompression on 05/04 * Tracheostomy May 2016 * PEG tube May 2016 * Ventriculostomy April 2016 * Craniotomy, evacuation of cerebellar hemorrhage April 2016 . Reported Medications Cipro (Ciprofloxacin HCl) 250 Mg Tab 750 Mg PO BID Keppra Liq (Levetiracetam) 500 Mg/5 Ml Soln 500 Mg PO BID Refresh Opth Drops (Polyvinyl Alcohol-Povidone Opth Drops) 1.4-0.6% Drops 1-2 Drop EACH EYE DAILY Glucerna 1.[address] (Nutritional Supplements) 1 Liq Liq 60 Ml TUBE CONTINUOUS Humalog Inj (Insulin Human Lispro) 1,000 Unit/10 Ml Vial 2-12 Units SQ ACHS SLIDING SCALE Acetaminophen 325 Mg Tab 650 Mg PO Q4H PRN Lantus Inj (Insulin Glargine) 100 Unit/Ml Inj 20 Units SQ Q12HR Famotidine 20 Mg Tab 20 Mg PO BID Labetalol (Labetalol HCl) 200 Mg Tab 200 Mg PO TID Potassium Chloride Liq (Potassium Chloride) 20 Meq/15 Ml Soln 20 Meq PO DAILY Norvasc (Amlodipine Besylate) 10 Mg Tab 10 Mg PO DAILY Pantoprazole (Pantoprazole Sodium) 20 Mg Tab 20 Mg PO BID Albuterol Neb (Albuterol Sulfate) 2.5 Mg/3 Ml Neb 2.5 Mg NEB Q4HR NEB PRN Furosemide 40 Mg Tab 40 Mg PO DAILY . Current Medications Medications (Trade) Dose Ordered Sig/Michelle Route Start Time Stop Time Status Last Admin (Cipro 400 Mg Premix) 200 ml @ 200 mls/hr Q12H IV 07/31/16 18:00 08/03/16 04:36 (D50w (Vial) Inj) 25 ml UNSCH PRN IV PUSH 07/31/16 06:00 (Glucagon Inj) 1 mg UNSCH PRN OTHER 07/31/16 06:00 (NS Flush) 2 ml UNSCH PRN IV FLUSH 07/31/16 06:00 08/01/16 00:05 (NS Flush) 2 ml BID IV FLUSH 07/31/16 09:00 08/03/16 09:12 (Zofran Inj) 4 mg Q6H PRN IVP 07/31/16 06:00 08/01/16 00:08 (Dulcolax Supp) 10 mg DAILY PRN RECTAL 07/31/16 06:00 (Norvasc) 10 mg DAILY PO 07/31/16 09:00 08/03/16 09:10 (Pepcid) 20 mg BID PO 07/31/16 09:00 08/03/16 09:10 (Lasix) 40 mg DAILY PO 07/31/16 09:00 08/03/16 09:10 (Levemir Inj) 20 units Q12HR SQ 07/31/16 09:00 08/03/16 09:11 (Trandate) 200 mg TID PO 07/31/16 09:00 08/03/16 09:10 (Keppra Liq) 500 mg BID PO 07/31/16 09:00 08/03/16 09:10 (Protonix) 20 mg BID PO 07/31/16 09:00 08/03/16 09:10 (Refresh Classic 1.4-0.6% Pf Opth Soln) 1 drop DAILY EACH EYE 07/31/16 09:00 08/03/16 09:12 (Tylenol 650 Mg/ 20 ml Liq) 650 mg Q6H PRN PO 08/01/16 13:15 08/03/16 09:09 Dexamethasone Sodium Phosphate 4 mg 4 mg Q12HR IV PUSH 08/01/16 21:00 08/03/16 20:59 08/03/16 09:12 Pharmacy Profile Note 0 ml @ 0 mls/hr UNSCH OTHER 08/02/16 16:30 Fluconazole/ Sodium Chloride 100 ml @ 100 mls/hr Q24H IV 08/02/16 20:00 08/02/16 20:00 (Vancomycin Inj/ NS 250 ml Inj) 262 ml @ 250 mls/hr Q12H IV 08/02/16 18:00 08/03/16 05:45 Miscellaneous Information SPECIFIC LAB TO BE DRAWN:VANCOMY... ONCE ONCE .XX 08/04/16 05:45 08/04/16 05:46 Family History The patient's mother of breast cancer, and father of [place]. . Substance Use Tobacco: Long-term smoker of 2 packs per day until her hemorrhage in April Alcohol: None Prescription med abuse: None Illicits: None . Psychosocial History The patient was born in [place], lived in [place] for quite some time, and moved with her to [place] in 1999. She lived with her until the hemorrhage in April 2016, and has been in long-term nursing facilities since then. She has been 4 times, currently for 20 years. She has one son who is about 38 years old, and has reportedly been estranged from her for many years. The reports that in the 20 years he has been , he has never met the patient's son and says the patient has not spoken with that son. 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 . Spiritual/Cultural Factors The patient's reports that she is not a spiritual or adventism person, but does believe in God. He does not believe she would want a trackman visit. . Living Will: Completed, but not made available Health Care Surrogate(s): . Documented care wishes: Patient reportedly has a standard living well . Family/friends goals: The patient's and [id number] both feel that the patient will have no good quality of life remaining, and they want to transition to comfort care, requesting hospice services, a return to the detention, and no return to the hospital. . Ethical and Legal Issues There are no ethical issues that would impact her care or decision-making at this time. The patient's and [id number] both feel that the patient will have no good quality of life remaining, and they want to transition to comfort care, requesting hospice services, a return to the detention, and no return to the hospital. . Physical Exam Vital Signs Date Time Temp Pulse Resp B/P Pulse Ox O2 Delivery O2 Flow Rate FiO2 08/03/16 11:33 95 Nasal Cannula 3.50 08/03/16 08:00 100.4 100 20 181/86 94 08/03/16 05:05 99.1 91 20 159/73 97 08/03/16 03:50 99 Nasal Cannula 3.50 08/03/16 03:24 Nasal Cannula 5.00 35 08/02/16 23:00 99.5 80 16 159/75 99 08/02/16 21:25 97.8 82 20 164/74 94 08/02/16 21:06 81 08/02/16 19:59 99 Nasal Cannula 4.00 08/02/16 16:00 100.4 83 16 156/69 99 08/02/16 12:00 101.1 88 16 150/70 99 08/02/16 08/03/16 19:00 07:00 Intake Total 1036 ml 1558 ml Output Total 1950 ml 1175 ml Balance -914 ml 383 ml Intake Oral 0 ml 0 ml IV Total 388 ml 1558 ml Tube Feeding 548 ml Tube Irrigant 100 ml Output Urine Total 1950 ml 1175 ml # Bowel Movements 2 1 Exam CONSTITUTIONAL/GENERAL: This is an adequately nourished patient, in no apparent distress. Nonverbal TUBES/LINES/DRAINS: Batista, IV access, oxygen nasal cannula, PEG tube SKIN: No jaundice, rashes, or lesions. Ecchymoses on upper extremities. No wounds seen anteriorly. Skin temperature appropriate. Not diaphoretic. HEAD: Atraumatic. Normocephalic. EYES: Pupils equal and round and reactive. No scleral icterus. No injection or drainage. Fundi not examined. ENT: Unable to assess hearing. Nose without bleeding or purulent drainage. NECK: Trachea midline. Supple, nontender. No palpable thyroid enlargement or nodularity. CARDIOVASCULAR: Irregular rhythm without murmurs, gallops, or rubs. No JVD. Peripheral pulses symmetric. RESPIRATORY/CHEST: Symmetric, unlabored respirations. Scattered rhonchi. GASTROINTESTINAL: Abdomen soft, non-tender, nondistended. No hepato-splenomegaly , or palpable masses. No guarding. Bowel sounds present. GENITOURINARY: Without palpable bladder distension. Batista catheter in place. MUSCULOSKELETAL: Extremities without clubbing, cyanosis, or edema. No joint tenderness or effusion noted. No calf tenderness. No mottling or clubbing. LYMPHATICS: No palpable cervical or supraclavicular adenopathy. NEUROLOGICAL: Lethargic, not following commands, nonverbal. PSYCHIATRIC: Unable to assess due to clinical condition . Diagnostic Tests Laboratory Laboratory Tests Test 07/31/16 08/01/16 08/01/16 08/02/16 13:35 06:15 09:30 10:41 Blood Gas Puncture Site RT RADIAL LT RADIAL Blood Gas Patient Temperature 98.6 98.6 Blood Gas HCO3 32 mmol/L 34 mmol/L (22-26) (22-26) Blood Gas Base Excess 7.7 mmol/L 8.2 mmol/L (-2-2) (-2-2) Blood Gas Oxygen Saturation 92 % (90-100) 99 % (90-100) Arterial Blood pH 7.46 7.37 (7.380-7.420) (7.380-7.420) Arterial Blood Partial 46 mmHg (38-42) 60 mmHg (38-42) Pressure CO2 Arterial Blood Partial 66 mmHG 305 mmHG Pressure O2 (61-120) (61-120) Arterial Blood Oxygen Content 14.7 Vol % 15.5 Vol % (12.0-20.0) (12.0-20.0) Arterial Blood 1.6 % (0-4) 1.3 % (0-4) Carboxyhemoglobin Arterial Blood Methemoglobin 0.5 % (0-2) 0.3 % (0-2) Blood Gas Hemoglobin 11.3 G/DL 10.7 G/DL (12.0-16.0) (12.0-16.0) Oxygen Delivery Device NASAL CANNULA SM Blood Gas Liter Flow 4 L/M 8 L/M White Blood Count 13.3 TH/MM3 9.9 TH/MM3 (4.0-11.0) (4.0-11.0) Red Blood Count 4.13 MIL/MM3 4.00 MIL/MM3 (4.00-5.30) (4.00-5.30) Hemoglobin 10.5 GM/DL 10.4 GM/DL (11.6-15.3) (11.6-15.3) Hematocrit 34.0 % 32.9 % (35.0-46.0) (35.0-46.0) Mean Corpuscular Volume 82.2 FL 82.4 FL (80.0-100.0) (80.0-100.0) Mean Corpuscular Hemoglobin 25.5 PG 26.0 PG (27.0-34.0) (27.0-34.0) Mean Corpuscular Hemoglobin 31.0 % 31.5 % Concent (32.0-36.0) (32.0-36.0) Red Cell Distribution Width 16.6 % 16.7 % (11.6-17.2) (11.6-17.2) Platelet Count 146 TH/MM3 151 TH/MM3 (150-450) (150-450) Mean Platelet Volume 11.1 FL 11.2 FL (7.0-11.0) (7.0-11.0) Neutrophils (%) (Auto) 77.5 % 76.8 % (16.0-70.0) (16.0-70.0) Lymphocytes (%) (Auto) 13.5 % 15.9 % (9.0-44.0) (9.0-44.0) Monocytes (%) (Auto) 8.7 % (0.0-8.0) 7.1 % (0.0-8.0) Eosinophils (%) (Auto) 0.1 % (0.0-4.0) 0.1 % (0.0-4.0) Basophils (%) (Auto) 0.2 % (0.0-2.0) 0.1 % (0.0-2.0) Neutrophils # (Auto) 10.3 TH/MM3 7.6 TH/MM3 (1.8-7.7) (1.8-7.7) Lymphocytes # (Auto) 1.8 TH/MM3 1.6 TH/MM3 (1.0-4.8) (1.0-4.8) Monocytes # (Auto) 1.2 TH/MM3 0.7 TH/MM3 (0-0.9) (0-0.9) Eosinophils # (Auto) 0.0 TH/MM3 0.0 TH/MM3 (0-0.4) (0-0.4) Basophils # (Auto) 0.0 TH/MM3 0.0 TH/MM3 (0-0.2) (0-0.2) CBC Comment DIFF FINAL DIFF FINAL Differential Comment Sodium Level 138 MEQ/L 141 MEQ/L (136-145) (136-145) Potassium Level 3.8 MEQ/L 4.1 MEQ/L (3.5-5.1) (3.5-5.1) Chloride Level 99 MEQ/L 101 MEQ/L (98-107) (98-107) Carbon Dioxide Level 33.8 MEQ/L 33.4 MEQ/L (21.0-32.0) (21.0-32.0) Anion Gap 5 MEQ/L (5-15) 7 MEQ/L (5-15) Blood Urea Nitrogen 32 MG/DL (7-18) 23 MG/DL (7-18) Creatinine 0.75 MG/DL 0.57 MG/DL (0.50-1.00) (0.50-1.00) Estimat Glomerular Filtration 77 ML/MIN (>89) 106 ML/MIN Rate (>89) Random Glucose 227 MG/DL 160 MG/DL (74-106) (74-106) Calcium Level 9.1 MG/DL 9.1 MG/DL (8.5-10.1) (8.5-10.1) Total Bilirubin 0.3 MG/DL (0.2-1.0) Aspartate Amino Transf 26 U/L (15-37) (AST/SGOT) Alanine Aminotransferase 34 U/L (10-53) (ALT/SGPT) Alkaline Phosphatase 126 U/L (45-117) Total Protein 6.6 GM/DL (6.4-8.2) Albumin 3.3 GM/DL (3.4-5.0) Troponin I LESS THAN 0.02 NG/ML (0.02-0.05) Test 08/02/16 08/02/16 08/03/16 17:50 18:03 09:11 Urine Color YELLOW (YELLW/STRAW) Urine Turbidity CLEAR (CLEAR) Urine pH 7.0 (5.0-8.5) Urine Specific [place] 1.018 (1.002-1.035) Urine Protein TRACE mg/dL (NEG-TRACE) Urine Glucose (UA) NEG mg/dL (NEG) Urine Ketones NEG mg/dL (NEG) Urine Occult Blood MOD (NEG) Urine Nitrite NEG (NEG) Urine Bilirubin NEG (NEG) Urine Urobilinogen 2.0 MG/DL (LESS THAN 2.0) Urine Leukocyte Esterase LARGE (NEG) Urine RBC 45 /hpf (0-3) Urine WBC 27 /hpf (0-5) Urine WBC Clumps RARE (NONE) Urine Bacteria RARE /hpf (NONE) Microscopic Urinalysis Comment CATH-CULTURE IND Troponin I LESS THAN 0.02 NG/ML (0.02-0.05) White Blood Count 10.1 TH/MM3 (4.0-11.0) Red Blood Count 4.15 MIL/MM3 (4.00-5.30) Hemoglobin 11.2 GM/DL (11.6-15.3) Hematocrit 33.5 % (35.0-46.0) Mean Corpuscular Volume 80.8 FL (80.0-100.0) Mean Corpuscular Hemoglobin 26.9 PG (27.0-34.0) Mean Corpuscular Hemoglobin 33.3 % Concent (32.0-36.0) Red Cell Distribution Width 17.0 % (11.6-17.2) Platelet Count 156 TH/MM3 (150-450) Mean Platelet Volume 10.6 FL (7.0-11.0) Neutrophils (%) (Auto) 75.4 % (16.0-70.0) Lymphocytes (%) (Auto) 14.5 % (9.0-44.0) Monocytes (%) (Auto) 9.9 % (0.0-8.0) Eosinophils (%) (Auto) 0.0 % (0.0-4.0) Basophils (%) (Auto) 0.2 % (0.0-2.0) Neutrophils # (Auto) 7.7 TH/MM3 (1.8-7.7) Lymphocytes # (Auto) 1.5 TH/MM3 (1.0-4.8) Monocytes # (Auto) 1.0 TH/MM3 (0-0.9) Eosinophils # (Auto) 0.0 TH/MM3 (0-0.4) Basophils # (Auto) 0.0 TH/MM3 (0-0.2) CBC Comment AUTO DIFF Differential Comment AUTO DIFF CONFIRMED Sodium Level 140 MEQ/L (136-145) Potassium Level 4.1 MEQ/L (3.5-5.1) Chloride Level 100 MEQ/L (98-107) Carbon Dioxide Level 29.5 MEQ/L (21.0-32.0) Anion Gap 11 MEQ/L (5-15) Blood Urea Nitrogen 22 MG/DL (7-18) Creatinine 0.55 MG/DL (0.50-1.00) Estimat Glomerular Filtration 111 ML/MIN Rate (>89) Random Glucose 140 MG/DL (74-106) Calcium Level 8.9 MG/DL (8.5-10.1) Result Diagram: 08/03/16 0911 08/03/16 0911 Microbiology Microbiology Date/Time Procedure Status Source Growth 08/02/16 10:30 Aerobic Blood Culture - Preliminary Resulted Blood Peripheral NO GROWTH IN 1 DAY 08/02/16 10:30 Anaerobic Blood Culture - Preliminary Resulted Blood Peripheral NO GROWTH IN 1 DAY 08/02/16 10:38 Aerobic Blood Culture - Preliminary Resulted Blood Peripheral NO GROWTH IN 1 DAY 08/02/16 10:38 Anaerobic Blood Culture - Preliminary Resulted Blood Peripheral NO GROWTH IN 1 DAY 08/02/16 17:50 Urine Culture Received Urine Catheterized Urine Pending Imaging Last Impressions Chest X-Ray 08/02/16 0000 Signed Impressions: Service Date/Time: Tuesday, August 02, 2016 09:23 - CONCLUSION: No acute disease. Santana Mena MD Neck CT 07/31/16 1327 Signed Impressions: Service Date/Time: Sunday, July 31, 2016 14:28 - CONCLUSION: 1. No focal masses seen within the airway which appears patent. Cesar Meza MD Abdomen/Pelvis CT 07/31/16 0000 Signed Impressions: Service Date/Time: Sunday, July 31, 2016 05:21 - CONCLUSION: 1. No obstruction or acute inflammatory changes are demonstrated. 2. Gastrojejunostomy tube without evidence of an acute complication. 3. Aortoiliac atherosclerosis again noted. No aneurysm. 4. Nonobstructing stones in both kidneys again seen without change. 5. 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 6. Mild bibasilar atelectasis. 7. Chronic pancreatitis. No evidence of acute pancreatitis. Haim Anaya MD Patient/Family Conference Present at Family Conference: Patient's Rayo and [id number] Karen . Family Conference Time (mins): 41 Family Conference Location: Consult Room Issues Discussed: * Palliative care role, purpose, approach * Hospice care role, purpose, approach * Additional medical, psychosocial, and spiritual history * Patients general health, functional status, and cognitive changes in the months leading up to the current hospitalization * Patient/family understanding of the current medical problems * Patient/family understanding of prognosis * Patients goals of care as best understood from advance directives and/or conversations and/or values * Current medical treatment options and benefits/burdens of those options * Likely scenarios comparing ongoing aggressive care with a transition to comfort measures only * Questions answered to the best of my ability * Palliative care contact information provided and [id number] request transition to comfort measures, hospice services . Assessment and Plan Disease Oriented Problem List: (1) hypoxic respiratory failure (2) fever, UTI, probable sepsis (3) worsening debility since posterior fossa hemorrhage 05/03/16 (4) recurrent infections since [facility] 05/03/16 (5) history of multiple ischemic strokes resulting in left-sided weakness 2002 (6) diabetes type 2 (7) COPD (8) hypertension (9) depression Symptom Scale: (1) dyspnea 0-10 Scale: 1 (2) restlessness 0-10 Scale: Unable to quantify (3) agitation 0-10 Scale: Unable to quantify Pertinent Non-Medical Issues Psychosocial: for 20 years, 1 estranged son, disabled since strokes in 2002, detention resident since [facility] April 2016 Spiritual: reports she believes in God but would not want a trackman visit, and is on affiliated with any particular denomination or clergy. Legal: The patient's and [id number] both feel that the patient will have no good quality of life remaining, and they want to transition to comfort care, requesting hospice services, a return to the detention, and no return to the hospital. Ethical issues impacting care: None. . Important Contacts : Rayo Spann Home: [id number]: Karen Correa . Prognosis This patient is terminal. She has had progressive debility and recurrent infections since her intracranial hemorrhage in April 2016. She is a bedbound long-term detention patient, and we'll continue to have recurrent infections and will continue to have progressive weakness and debility. She likely has just weeks or months to live. . Code Status: No Code Plan * DO NOT RESUSCITATE * DECISION-MAKING: The patient lacks capacity for decision making, and she will not regain that capacity. Her is the decision making proxy. * GOALS: The patient's and [id number] both feel that the patient will have no good quality of life remaining, and they want to transition to comfort care, requesting hospice services, a return to the detention, and no return to the hospital. * SYMPTOMS: Her dyspnea is mild, and her restlessness and agitation seems to have subsided for now. The family does not want a tracheostomy replaced, and that may be beneficial in avoiding her restlessness and agitation. * Hospice consult placed. * Palliative Care will continue to follow the patient during this hospitalization. . Time Spent Total Floor Time (mins): 76 Face to Face Time (mins): 49 >50% Counseling/Coord of Care: Yes Thank you for the opportunity to participate in the care of Ms. Spann. Attestation To help prompt me to consider important information that might be impacting today's encounter and assessment, information from prior notes written by myself or my colleagues may have been "brought forward" into today's note. My signature on this note, however, is an attestation that I personally performed the exam, history, and/or decision-making noted today, and, unless otherwise indicated, the interactions with patient, family, and staff as well as the review of records all occurred today. I also attest that the listed assessment and stated plan reflect my best clinical judgment today based on the combination of historical information, prior notes, and today's exam/ interactions. When time spent is documented, it refers only to time spent today by the signer, or if indicated, combined time spent today by collaborating physician/nurse practitioner. Sole Galeano MD August 03, 2016 12:24
--- NOTE | 2016-08-03 14:45 | HHI.PR ---
Subjective Remarks Follow-up for acute on chronic respiratory failure and UTI. Patient is sleeping upon arrival, awakens to voice. Nonverbal. Doesn't really respond to questioning. Hospice was consulted. Currently on 3.5 L nasal cannula. Objective Vitals Vital Signs Date Time Temp Pulse Resp B/P Pulse Ox O2 Delivery O2 Flow Rate FiO2 08/03/16 12:00 100.5 80 20 157/75 94 08/03/16 11:33 95 Nasal Cannula 3.50 08/03/16 08:00 100.4 100 20 181/86 94 08/03/16 05:05 99.1 91 20 159/73 97 08/03/16 03:50 99 Nasal Cannula 3.50 08/03/16 03:24 Nasal Cannula 5.00 35 08/02/16 23:00 99.5 80 16 159/75 99 08/02/16 21:25 97.8 82 20 164/74 94 08/02/16 21:06 81 08/02/16 19:59 99 Nasal Cannula 4.00 08/02/16 16:00 100.4 83 16 156/69 99 I/O 08/02/16 08/02/16 08/02/16 08/03/16 08/03/16 08/03/16 07:00 15:00 23:00 07:00 15:00 23:00 Intake Total 849 ml 1036 ml 800 ml 758 ml Output Total 600 ml 1950 ml 325 ml 850 ml Balance 249 ml -914 ml 475 ml -92 ml Intake Oral 0 ml 0 ml 0 ml IV Total 440 ml 388 ml 800 ml 758 ml Tube Feeding 409 ml 548 ml Tube Irrigant 100 ml Output Urine Total 600 ml 1950 ml 325 ml 850 ml # Bowel Movements 2 0 1 Result Diagram: 08/03/16 0911 08/03/16 0911 Imaging Last Impressions Chest X-Ray 08/02/16 0000 Signed Impressions: Service Date/Time: Tuesday, August 02, 2016 09:23 - CONCLUSION: No acute disease. Santana Mena MD Neck CT 07/31/16 1327 Signed Impressions: Service Date/Time: Sunday, July 31, 2016 14:28 - CONCLUSION: 1. No focal masses seen within the airway which appears patent. Cesar Meza MD Abdomen/Pelvis CT 07/31/16 0000 Signed Impressions: Service Date/Time: Sunday, July 31, 2016 05:21 - CONCLUSION: 1. No obstruction or acute inflammatory changes are demonstrated. 2. Gastrojejunostomy tube without evidence of an acute complication. 3. Aortoiliac atherosclerosis again noted. No aneurysm. 4. Nonobstructing stones in both kidneys again seen without change. 5. 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 6. Mild bibasilar atelectasis. 7. Chronic pancreatitis. No evidence of acute pancreatitis. Haim Anaya MD Objective Remarks GENERAL: Well-developed well-nourished. In no acute distress. SKIN: Warm and dry. No lesions noted. HEENT: Normocephalic. Pupils equal and round. Mucous membranes pink and moist. Stoma with clean dressing. CARDIOVASCULAR: Regular rate and rhythm. No murmur appreciated. RESPIRATORY: No accessory muscle use. Clear to auscultation. Transmitted upper respiratory sounds. GASTROINTESTINAL: Abdomen soft, non-tender, nondistended. Bowel sounds x4. PEG tube in place. MUSCULOSKELETAL: No obvious deformities. No clubbing or cyanosis. No edema. NEUROLOGICAL: Awake and alert. Moves upper and lower extremities spontaneously. Nonverbal. Date of Insertion: August 02, 2016 A/P Assessment and Plan 65-year-old female with: Acute on Chronic Respiratory Failure with Hypoxia: s/p tracheostomy removed by patient multiple times. O2 sat 86% on 4L NC. Per detention patient has increased work of breathing but her oxygen saturation has been stable. Patient has been on 4L of nasal cannula. Increased work of breathing seems more due to upper respiratory. Prior physician Dr. Browne discussed with patient's who is the healthcare proxy, wants to respect patient's wishes -Consulted guide cruise, Patient may need trach replaced. -08/01 patient's O2 sat dropped to 86%, a lot of upper airway secretions suctioned, repeat ABG shows worsening with pCO2 increasing from 46 to 60 -discussed with Dr. Ireland, recommends using lowest amount of O2 to keep O2 sat >92% -Consulted Dr. Mcfarlane to replace trach if necessary. -started on IV Decadron 4mg q12h per pulm, continue duonebs q6h and prn -Titrate supplemental oxygen by nasal cannula -per family, patient does not want trach replaced -Palliative care was consulted who consulted hospice. Sepsis with UTI (Tmax 101.3, tachycardic HR 98, suspect source-UTI). Urine culture with Group D Enterococcus and Annemarie Albicans -Enterococcus is resistant to Cipro, DC Cipro -Consulted ID since patient is being treated multiple times due to UTI, appreciate assistance -Order to replace Batista 08/02 -Blood cultures pending -repeat CXR 08/02 reviewed, unremarkable -IV Vanco and fluconazole added per ID Abdominal pain -Unclear etiology. May be secondary to PEG versus UTI. -CT scan the abdomen/pelvis shows no acute process. -Will treat UTI and continue to monitor clinically. History of recent intracranial hemorrhagic stroke/large acute posterior fossa hemorrhage with intraventricular extension -s/p posterior decompression on 05/[address] Chavez. -Patient on Keppra for prophylaxis. -Stable. Hypertension/GERD -Continue with home medication. Antiphospholipid syndrome -Previously on Coumadin but had a large intracranial hemorrhagic stroke. -Coumadin is being held due to the above. Type 2 diabetes insulin-dependent -continue Lantus 20 units twice a day. -continue SSI Atypical Chest Pain: reportedly patient complained of chest pain to her family , suspect secondary to respiratory. -Troponin negative 2 -monitor on telemetry DVT prophylaxis -Contraindicated secondary to intracranial bleed. -SCDs. Written by Gio Pierce, acting as scribe for Dr. Plasencia on 08/03/16 at 14:39. Attending Statement This note was transcribed by scribe [Gio Pierce]. I, Dr. Jian Plasencia personally performed the history, physical exam, and medical decision making; and confirmed the accuracy of the information in the transcribed note. Authenticated by Dr. Jian Plasencia on 08/04/16 at 09:09. Gio Pierce August 03, 2016 14:44 Jian Plasencia MD August 04, 2016 09:09
--- NOTE | 2016-08-03 17:54 | HHI.PR ---
Subjective Remarks Awake and stable. Has some upper airway sounds. On a N/C at 4 L. On antibiotics. Objective Vital Signs Date Time Temp Pulse Resp B/P Pulse Ox O2 Delivery O2 Flow Rate FiO2 08/03/16 16:00 99.6 88 20 155/78 96 08/03/16 15:17 98 Nasal Cannula 2.50 08/03/16 12:00 100.5 80 20 157/75 94 08/03/16 11:33 95 Nasal Cannula 3.50 08/03/16 08:40 Nasal Cannula 5.00 35 08/03/16 08:38 98 08/03/16 08:00 100.4 100 20 181/86 94 08/03/16 05:05 99.1 91 20 159/73 97 08/03/16 03:50 99 Nasal Cannula 3.50 08/03/16 03:24 Nasal Cannula 5.00 35 08/02/16 23:00 99.5 80 16 159/75 99 08/02/16 21:25 97.8 82 20 164/74 94 08/02/16 21:06 81 08/02/16 19:59 99 Nasal Cannula 4.00 I/O 08/02/16 08/02/16 08/02/16 08/03/16 08/03/16 08/03/16 07:00 15:00 23:00 07:00 15:00 23:00 Intake Total 849 ml 1036 ml 800 ml 758 ml 0 ml Output Total 600 ml 1950 ml 325 ml 850 ml 1900 ml Balance 249 ml -914 ml 475 ml -92 ml -1900 ml Intake Oral 0 ml 0 ml 0 ml 0 ml IV Total 440 ml 388 ml 800 ml 758 ml Tube Feeding 409 ml 548 ml Tube Irrigant 100 ml Output Urine Total 600 ml 1950 ml 325 ml 850 ml 1900 ml # Bowel Movements 2 0 1 0 Result Diagram: 08/03/16 0911 08/03/16 0911 Objective Remarks GENERAL: This is a moderately obese elderly white female who is in bed. She has weakness of the left side. HEAD, EYES, EARS, NOSE, THROAT: Head normocephalic. The pupils are reactive. Mild facial weakness on the left. Throat clear. NECK: She has a tracheostomy site that is healing. No lymphadenopathy. CHEST: Equal movements with a few coarse wheezes bilaterally with diminished breath sounds at the periphery. HEART: Heart sounds are irregular. S1 and S2. No murmur. ABDOMEN: Abdomen soft and obese without masses. No organomegaly or tenderness. EXTREMITIES: Weakness of the left side. No edema. Peripheral pulses are diminished. NEUROLOGIC: Reflexes are 1+ on the right. SKIN: Dry and warm. Assessment and Plan Assessment and Plan IMPRESSION: 1. Status post tracheostomy tube removal with mild respiratory insufficiency. 2. History of CVA with left hemiplegia. 3. COPD. 4. Urinary tract infection, recurrent. Plan : 1. Place on O2 at 3 L. 2. Clean and dress trach site. 3. Continue nebs qid , duoneb. 4. Tube feeds at 55 CC 5. Chest X ray in am 6. IS at bedside qid. Jeanette Ireland MD August 03, 2016 17:54
[2016-08-03] MEDS: FLUCONAZOLE 200 MG PREMIX BAG 100 ML IV SCH (19:54)
--- NOTE | 2016-08-03 22:33 | HHI.IDPN ---
Subjective Subjective Remarks delayed entry pt was seen earlier today around 3 pm dw RN - pt might go to hospice Antibiotics vanco fluconazol Allergies: Coded Allergies: Rocephin (Verified Allergy, Severe, HIVES, 07/31/16) Latex (Verified Allergy, Intermediate, Rash, 07/31/16) Objective . Vital Signs Date Time Temp Pulse Resp B/P Pulse Ox O2 Delivery O2 Flow Rate FiO2 08/03/16 20:00 73 08/03/16 20:00 Nasal Cannula 3.50 08/03/16 20:00 99.8 64 18 160/70 98 08/03/16 16:00 99.6 88 20 155/78 96 08/03/16 15:17 98 Nasal Cannula 2.50 08/03/16 12:00 100.5 80 20 157/75 94 08/03/16 11:33 95 Nasal Cannula 3.50 08/03/16 08:40 Nasal Cannula 5.00 35 08/03/16 08:38 98 08/03/16 08:00 100.4 100 20 181/86 94 08/03/16 05:05 99.1 91 20 159/73 97 08/03/16 03:50 99 Nasal Cannula 3.50 08/03/16 03:24 Nasal Cannula 5.00 35 08/02/16 23:00 99.5 80 16 159/75 99 08/02/16 08/02/16 08/03/16 15:00 23:00 07:00 Intake Total 1036 ml 800 ml 758 ml Output Total 1950 ml 325 ml 850 ml Balance -914 ml 475 ml -92 ml Intake Oral 0 ml 0 ml 0 ml IV Total 388 ml 800 ml 758 ml Tube Feeding 548 ml Tube Irrigant 100 ml Output Urine Total 1950 ml 325 ml 850 ml # Bowel Movements 2 0 1 . Laboratory Tests Test 08/02/16 08/03/16 10:41 09:11 White Blood Count 9.9 TH/MM3 10.1 TH/MM3 Red Blood Count 4.00 MIL/MM3 4.15 MIL/MM3 Hemoglobin 10.4 GM/DL 11.2 GM/DL Hematocrit 32.9 % 33.5 % Mean Corpuscular Volume 82.4 FL 80.8 FL Mean Corpuscular Hemoglobin 26.0 PG 26.9 PG Mean Corpuscular Hemoglobin 31.5 % 33.3 % Concent Red Cell Distribution Width 16.7 % 17.0 % Platelet Count 151 TH/MM3 156 TH/MM3 Mean Platelet Volume 11.2 FL 10.6 FL Neutrophils (%) (Auto) 76.8 % 75.4 % Lymphocytes (%) (Auto) 15.9 % 14.5 % Monocytes (%) (Auto) 7.1 % 9.9 % Eosinophils (%) (Auto) 0.1 % 0.0 % Basophils (%) (Auto) 0.1 % 0.2 % Neutrophils # (Auto) 7.6 TH/MM3 7.7 TH/MM3 Lymphocytes # (Auto) 1.6 TH/MM3 1.5 TH/MM3 Monocytes # (Auto) 0.7 TH/MM3 1.0 TH/MM3 Eosinophils # (Auto) 0.0 TH/MM3 0.0 TH/MM3 Basophils # (Auto) 0.0 TH/MM3 0.0 TH/MM3 CBC Comment DIFF FINAL AUTO DIFF Differential Comment AUTO DIFF CONFIRMED Laboratory Tests Test 08/02/16 08/02/16 08/03/16 10:41 18:03 09:11 Sodium Level 141 MEQ/L 140 MEQ/L Potassium Level 4.1 MEQ/L 4.1 MEQ/L Chloride Level 101 MEQ/L 100 MEQ/L Carbon Dioxide Level 33.4 MEQ/L 29.5 MEQ/L Anion Gap 7 MEQ/L 11 MEQ/L Blood Urea Nitrogen 23 MG/DL 22 MG/DL Creatinine 0.57 MG/DL 0.55 MG/DL Estimat Glomerular Filtration 106 ML/MIN 111 ML/MIN Rate Random Glucose 160 MG/DL 140 MG/DL Calcium Level 9.1 MG/DL 8.9 MG/DL Troponin I LESS THAN 0.02 LESS THAN 0.02 NG/ML NG/ML Microbiology Date/Time Procedure Status Source Growth 08/02/16 10:30 Aerobic Blood Culture - Preliminary Resulted Blood Peripheral NO GROWTH IN 1 DAY 08/02/16 10:30 Anaerobic Blood Culture - Preliminary Resulted Blood Peripheral NO GROWTH IN 1 DAY 08/02/16 10:38 Aerobic Blood Culture - Preliminary Resulted Blood Peripheral NO GROWTH IN 1 DAY 08/02/16 10:38 Anaerobic Blood Culture - Preliminary Resulted Blood Peripheral NO GROWTH IN 1 DAY 08/02/16 17:50 Urine Culture - Preliminary Resulted Urine Catheterized Urine NO GROWTH IN 24 HOURS. Imaging Last Impressions Chest X-Ray 08/02/16 0000 Signed Impressions: Service Date/Time: Tuesday, August 02, 2016 09:23 - CONCLUSION: No acute disease. Santana Mena MD Neck CT 07/31/16 1327 Signed Impressions: Service Date/Time: Sunday, July 31, 2016 14:28 - CONCLUSION: 1. No focal masses seen within the airway which appears patent. Cesar Meza MD Abdomen/Pelvis CT 07/31/16 0000 Signed Impressions: Service Date/Time: Sunday, July 31, 2016 05:21 - CONCLUSION: 1. No obstruction or acute inflammatory changes are demonstrated. 2. Gastrojejunostomy tube without evidence of an acute complication. 3. Aortoiliac atherosclerosis again noted. No aneurysm. 4. Nonobstructing stones in both kidneys again seen without change. 5. 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 6. Mild bibasilar atelectasis. 7. Chronic pancreatitis. No evidence of acute pancreatitis. Haim Anaya MD Physical Exam CONSTITUTIONAL/GENERAL: This is an obese elderly patient, in no apparent distress. TUBES/LINES/DRAINS: SKIN: No jaundice, rashes, or lesions. NECK: Trachea midline. Trach opening covered with intact dressing CARDIOVASCULAR: Regular rate and rhythm without murmurs, gallops, or rubs. No JVD. Peripheral pulses symmetric. RESPIRATORY/CHEST: Symmetric, unlabored respirations. Upper airway sounds on auscultation. GASTROINTESTINAL: Abdomen soft, non-tender, nondistended. No hepato-splenomegaly , or palpable masses. No guarding. Bowel sounds present. GENITOURINARY: Without palpable bladder distension. Batista catheter in place with cloudy dark yellow uirne MUSCULOSKELETAL: Extremities without clubbing, cyanosis, or edema. No joint tenderness or effusion noted. No calf tenderness. No mottling or clubbing. B/l foot drop NEUROLOGICAL:Obtunded non verbal not follows commands. PSYCHIATRIC: unable to assess Assessment & Plan Remarks UTI Leukocytosis - edgardo 2/2 UTI Presents from longterm High grade CFTX allergy -hives Abd pain - CT wo acute pathology ? 2/2 UTI Chronic resp failure with trach - pulled out trach Funguria Persistent low grade fever - cont fluconazol - cont vanco iv fu clx report fu WBC dw RN - possibly to hospice Jessica Quick MD August 03, 2016 22:33
[2016-08-04] VITALS: BP 170/76; PULSE 78; RESP 18; TEMP 97.7; O2SAT 98
[2016-08-04] MEDS: RESP: ALBUTEROL 2.5 MG/IPRATROPIUM 0.5 MG NEB (SCH) NEB ×3 (03:21→15:20)
[2016-08-04 04:00] VITALS: BP 172/79; PULSE 62; RESP 18; TEMP 98.9; O2SAT 98
[2016-08-04] MEDS: INSULIN ASPART SUPPLEMENTAL SCALE SQ SCH ×2 (05:39→12:21)
[2016-08-04] MEDS: VANCOMYCIN INJ 1,200 MG in SODIUM CHLOR 0.9% 250 ML INJ 250 ML IV SCH (05:39)
[2016-08-04] MEDS ORDERED: PHARMACY ORDERED LAB ONE (05:45)
--- NOTE | 2016-08-04 07:04 | RADRPT ---
EXAM DATE/TIME: 08/04/2016 05:59 [facility] COMPARISON: CHEST SINGLE AP, August 02, 2016, 9:23. INDICATIONS : Respiratory distress. MEDICAL HISTORY : Renal calculi. Lupus SURGICAL HISTORY : Cholecystectomy. Appendectomy. ENCOUNTER: Initial ACUITY: 1 week PAIN SCORE: Non-responsive. LOCATION: Bilateral chest FINDINGS: The cardiac silhouette is enlarged in transverse diameter. The lungs are free of acute parenchymal op acity. No effusions are identified. Osseous structures are intact. A shunt catheter traversing the le ft hemithorax. There is prominence of the aortic knob is with calcification characteristic of atheros clerotic vascular disease. CONCLUSION: Cardiomegaly. No acute cardiopulmonary disease. Michael Mehta MD on August 04, 2016 at 7:02 Board Certified Radiologist. This report was verified electronically.
[2016-08-04 08:00] VITALS: BP 137/89; PULSE 84; RESP 20; TEMP 99.7; O2SAT 98
[2016-08-04 08:04] VITALS: PULSE 84; PULSE 90
[2016-08-04 09:20] VITALS: O2SAT 98
[2016-08-04] MEDS: LABETALOL HCL 200 MG TAB PO SCH ×2 (09:40→15:09)
[2016-08-04] MEDS: FAMOTIDINE 20 MG TAB PO SCH (09:40)
[2016-08-04] MEDS: levETIRAcetam 500 MG/5 ML UDC PO SCH (09:40)
[2016-08-04] MEDS: POLYVINYL ALC-POVIDONE 1.4/0.6% PF OPTH SOLN 0.4 ML 30 CT EACH EYE SCH (09:41)
[2016-08-04] MEDS: PANTOPRAZOLE SOD 20 MG DELAYED RELEASE TAB PO SCH (09:41)
[2016-08-04] MEDS: FUROSEMIDE 40 MG TAB PO SCH (09:41)
[2016-08-04] MEDS: SODIUM CHLORIDE 0.9% FLUSH 10 ML FLUSH IV FLUSH SCH (09:41)
[2016-08-04] MEDS: INSULIN DETEMIR 100 UNITS/ML VIAL SQ SCH (09:42)
[2016-08-04] MEDS: ACETAMINOPHEN 650 MG/20.3 ML UDC PO PRN (11:23)
[2016-08-04 12:00] VITALS: BP 136/63; PULSE 80; RESP 20; TEMP 101.3; O2SAT 96
--- NOTE | 2016-08-05 07:07 | HHI.DS ---
Discharge Summary Admission Date Aug 01, 2016 at 09:28 Discharge Date: August 04, 2016 Admitting Diagnosis uti, shortness of breath (1) UTI (urinary tract infection) ICD Code: N39.0 (2) Chronic obstructive pulmonary disease with acute exacerbation ICD Code: J44.1 Procedures none Brief History - From Admission This is a 65-year-old female with history of CVA with left-sided weakness secondary to intracranial bleed, history of multiple UTIs, has a chronic Batista in, chronic respiratory failure status post tracheostomy but was removed by patient and was not replaced who presented with shortness of breathing abdominal pain. Patient is nonverbal but understands. Spoke to patient's Mr. Spann over the phone who stated that patient was admitted due to shortness of breathing and abdominal pain. Otherwise he had no other information to add. Patient resided in the [facility]. When asked patient she abdominal pain she pointed to her abdomen mostly at the PEG site. Also when answer shortness of breathing she nodded her head yes. Per patient's she is able to speak if you encouraged her. I did a lot of encouragement patient continues to be nonverbal. Patient does follow commands. After nursing facility patient at baseline was on 5 L nasal cannula. She is currently on 4 L nasal cannula. Patient was given one dose of Solu-Medrol in the emergency department. Per patient's patient is a DO NOT RESUSCITATE. This was also confirmed by the senior care. CBC/BMP: 08/03/16 0911 08/03/16 0911 Significant Findings Laboratory Tests Test 08/02/16 08/02/16 08/02/16 08/03/16 10:41 17:50 18:03 09:11 Hemoglobin 10.4 GM/DL 11.2 GM/DL (11.6-15.3) (11.6-15.3) Hematocrit 32.9 % 33.5 % (35.0-46.0) (35.0-46.0) Mean Corpuscular Hemoglobin 26.0 PG 26.9 PG (27.0-34.0) (27.0-34.0) Mean Corpuscular Hemoglobin 31.5 % Concent (32.0-36.0) Mean Platelet Volume 11.2 FL (7.0-11.0) Neutrophils (%) (Auto) 76.8 % 75.4 % (16.0-70.0) (16.0-70.0) Carbon Dioxide Level 33.4 MEQ/L (21.0-32.0) Blood Urea Nitrogen 23 MG/DL (7-18) 22 MG/DL (7-18) Random Glucose 160 MG/DL 140 MG/DL (74-106) (74-106) Troponin I LESS THAN 0.02 LESS THAN 0.02 NG/ML NG/ML (0.02-0.05) (0.02-0.05) Urine Occult Blood MOD (NEG) Urine Leukocyte Esterase LARGE (NEG) Urine RBC 45 /hpf (0-3) Urine WBC 27 /hpf (0-5) Urine WBC Clumps RARE (NONE) Urine Bacteria RARE /hpf (NONE) Monocytes (%) (Auto) 9.9 % (0.0-8.0) Monocytes # (Auto) 1.0 TH/MM3 (0-0.9) Test 08/04/16 05:45 Vancomycin Level Trough 13.7 MCG/ML (5.0-10.0) Imaging Last Impressions Chest X-Ray 08/04/16 0600 Signed Impressions: Service Date/Time: Thursday, August 04, 2016 05:59 - CONCLUSION: Cardiomegaly. No acute cardiopulmonary disease. Michael Mehta MD Neck CT 07/31/16 1327 Signed Impressions: Service Date/Time: Sunday, July 31, 2016 14:28 - CONCLUSION: 1. No focal masses seen within the airway which appears patent. Cesar Meza MD Abdomen/Pelvis CT 07/31/16 0000 Signed Impressions: Service Date/Time: Sunday, July 31, 2016 05:21 - CONCLUSION: 1. No obstruction or acute inflammatory changes are demonstrated. 2. Gastrojejunostomy tube without evidence of an acute complication. 3. Aortoiliac atherosclerosis again noted. No aneurysm. 4. Nonobstructing stones in both kidneys again seen without change. 5. 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 6. Mild bibasilar atelectasis. 7. Chronic pancreatitis. No evidence of acute pancreatitis. Haim Anaya MD PE at Discharge GENERAL: thin 65 yo female In no acute distress. SKIN: Warm and dry. No lesions noted. HEENT: Normocephalic. Pupils equal and round. Mucous membranes pink and moist. Stoma with clean dressing. CARDIOVASCULAR: Regular rate and rhythm. No murmur appreciated. RESPIRATORY: No accessory muscle use. Clear to auscultation. Transmitted upper respiratory sounds. GASTROINTESTINAL: Abdomen soft, non-tender, nondistended. Bowel sounds x4. PEG tube in place. MUSCULOSKELETAL: No obvious deformities. No clubbing or cyanosis. No edema. NEUROLOGICAL: Awake and alert. Moves upper and lower extremities spontaneously. Nonverbal. Pt update on day of discharge nonverbal. responds to simple commands. Hospital Course Pulmonology was consult and. Patient was treated with IV steroids. Surgery was consult and to replace tracheostomy, however family does not want tracheostomy replaced. Palliative care was consult said, and family has opted for hospice care For problem-based summary from most recent progress note, please see below. Acute on Chronic Respiratory Failure with Hypoxia: s/p tracheostomy removed by patient multiple times. O2 sat 86% on 4L NC. Per senior care patient has increased work of breathing but her oxygen saturation has been stable. Patient has been on 4L of nasal cannula. Increased work of breathing seems more due to upper respiratory. Prior physician Dr. Browne discussed with patient's who is the healthcare proxy, wants to respect patient's wishes -Consulted prevention coordinator, Patient may need trach replaced. -08/01 patient's O2 sat dropped to 86%, a lot of upper airway secretions suctioned, repeat ABG shows worsening with pCO2 increasing from 46 to 60 -discussed with Dr. Ireland, recommends using lowest amount of O2 to keep O2 sat >92% -Consulted Dr. Mcfarlane to replace trach if necessary. -started on IV Decadron 4mg q12h per pulm, continue duonebs q6h and prn -Titrate supplemental oxygen by nasal cannula -per family, patient does not want trach replaced -Palliative care was consulted who consulted hospice. Sepsis with UTI (Tmax 101.3, tachycardic HR 98, suspect source-UTI). Urine culture with Group D Enterococcus and Annemarie Albicans -Enterococcus is resistant to Cipro, DC Cipro -Consulted ID since patient is being treated multiple times due to UTI, appreciate assistance -Order to replace Batista 08/02 -Blood cultures pending -repeat CXR 08/02 reviewed, unremarkable -IV Vanco and fluconazole added per ID Abdominal pain -Unclear etiology. May be secondary to PEG versus UTI. -CT scan the abdomen/pelvis shows no acute process. -Will treat UTI and continue to monitor clinically. History of recent intracranial hemorrhagic stroke/large acute posterior fossa hemorrhage with intraventricular extension -s/p posterior decompression on 05/[address] Chavez. -Patient on Keppra for prophylaxis. -Stable. Hypertension/GERD -Continue with home medication. Antiphospholipid syndrome -Previously on Coumadin but had a large intracranial hemorrhagic stroke. -Coumadin is being held due to the above. Type 2 diabetes insulin-dependent -continue Lantus 20 units twice a day. -continue SSI Atypical Chest Pain: reportedly patient complained of chest pain to her family , suspect secondary to respiratory. -Troponin negative 2 -monitor on telemetry DVT prophylaxis -Contraindicated secondary to intracranial bleed. -SCDs. Pt Condition on Discharge: Stable Discharge Disposition: Discharge to SNF Discharge Time: <= 30 minutes Discharge Instructions DIET: Follow Instructions for: On Tube Feeding Activities you can perform: Regular-No Restrictions Follow up Referrals: PCP Follow-up with Hospice Pt Condition on Discharge: Stable Discharge Disposition: Discharge to SNF Discharge Time: <= 30 minutes Discharge Instructions DIET: Follow Instructions for: On Tube Feeding Activities you can perform: Regular-No Restrictions Follow up Referrals: PCP Follow-up with Hospice Jian Plasencia MD August 05, 2016 07:07
[2016-08-06] MEDS ORDERED: PHARMACY ORDERED LAB ONE (05:45)
== END 2016-08-04 17:37 | DRG 189 ==
LOC: NEPE 03:07 → NEDA 06:05 → NEPGCP 09:40 → OBSVTOIN 08-01 09:28 → N04A 08-01 18:35
PROVIDERS: ADMIT Internal Medicine; ATTEND Internal Medicine
DX: J96.21 Acute and chronic respiratory failure with hypoxia (principal); A41.9 Sepsis, unspecified organism; Z93.0 Tracheostomy status; D68.61 Antiphospholipid syndrome; I69.354 Hemiplegia and hemiparesis following cerebral infarction affecting left non-dominant side; J44.1 Chronic obstructive pulmonary disease with (acute) exacerbation; N39.0 Urinary tract infection, site not specified; Z93.1 Gastrostomy status; K21.9 Gastro-esophageal reflux disease without esophagitis; I10 Essential (primary) hypertension; Z79.4 Long term (current) use of insulin; E11.9 Type 2 diabetes mellitus without complications; R07.89 Other chest pain; Z66 Do not resuscitate; Z87.440 Personal history of urinary (tract) infections; Z87.891 Personal history of nicotine dependence; Z88.1 Allergy status to other antibiotic agents; Z91.040 Latex allergy status; Z74.01 Bed confinement status
CPT/HCPCS: 36600; 70491; 71010; 74176; 76937; 80048; 80053; 80076; 80202; 81001; 82805; 82948; 83690; 84484; 85007; 85025; 85027; 85610; 85730; 87040; 87077; 87086; 87186; 94640; 94664; G0378; J0744; J1100; J1450; J1815; J2270; J2405; J2930; J3370; J7030; J7050; J7613; Q9967